=== PATIENT | female | born 1945 | race Caucasian/White ===

== ENCOUNTER 2020-10-10 13:28 | Inpatient (IN) ==
[2020-10-10] MEDS ORDERED: SODIUM CHLORIDE 0.9% 1000ML 1,000 ML IV ONE (14:09)
[2020-10-10] MEDS ORDERED: GI COCKTAIL ED USE PO ONE (14:09)
--- NOTE | 2020-10-10 14:12 | Emergency Department Note ---
Impression & Plan Acute upper gastrointestinal bleeding, Hypertension, Anemia, CKD (chronic kidney disease) ED Provider Note NAME: FELI JAUREGUI AGE: 75 SEX: F : 1945 ARRIVES VIA: Walk-In INFORMANT: Patient ED PROVIDER(S): Jn Lu DO CHIEF COMPLAINT: Abdominal pain in the epigastric region HPI: Patient is a 75-year-old female that presents to the ER for epigastric abdominal pain which has been present for the past 2 months constantly. Is worse after eating. She admits to some nausea but no vomiting. Denies any dysuria urgency or frequency. No chest pain or shortness of breath. She notes she has some diarrhea over the past 24 hours and noted some dark stools. Denies any blood thinners other than aspirin. No other exacerbating or remitting factors. She has followed up with her PCP and had an ultrasound and chest x-ray which were per report unremarkable. ROS: See above HPI for pertinent positives & negatives. A total of 10 systems reviewed and were otherwise negative. PAST MEDICAL HISTORY:See Below PAST SURGICAL HISTORY:See Below FAMILY HISTORY:See Below SOCIAL HISTORY:See Below HOME MEDICATIONS:See Below ALLERGIES:See Below VITALS:See Below PHYSICAL EXAMINATION: GENERAL: Sitting up in bed, alert, well appearing, well nourished, no distress, non-toxic EYE EXAM: normal conjunctiva. OROPHARYNX: no exudate, no erythema, lips, buccal mucosa, and tongue normal and mucous membranes are moist NECK: supple, no nuchal rigidity, no adenopathy, non-tender LUNGS: Clear to auscultation. Normal chest wall mechanics HEART: no murmurs, S1 normal and S2 normal ABDOMEN: abdomen soft, non-tender, normo-active bowel sounds, no masses, no rebound or guarding. RECTAL: Rectally heme positive dark stool UPPER EXTREMITIES: upper extremities are grossly normal. LOWER EXTREMITIES: No pitting edema. NEURO EXAM: Normal sensorium, cranial nerves II-XII grossly intact, normal speech, no gross weakness of arms, no gross weakness of legs. MEDICAL DECISION MAKING: Patient is a 75-year-old female who presents ER for black stools and abdominal pain. IV was established percutaneously labs show hemoglobin 1.4 consistent with previous. INR was unremarkable. BMP with creatinine 2.7 consistent with previous. LFTs bilirubin was unremarkable. Troponin was negative. Lipase unremarkable. UA was contaminated. Will not treat at that time. Covid negative. Rectal heme positive black stool. Discussed with Dr. Howe as this patient has followed with [facility] before and had a scope in 2019 which was unremarkable. She was given a GI cocktail with significant improvement of her pain. He recommended admission and they will evaluate as an inpatient. Triage Nursing notes reviewed. Limited review of prior medical records performed Vital Signs: reviewed and remarkable for HTN Differential diagnosis: Differential diagnoses includes but is not limited to gastritis, peptic ulcer disease, GERD, gallbladder disease, pancreatitis, small bowel obstruction, acute coronary syndrome, pericarditis, ischemic bowel, irritable bowel disease, irritable bowel syndrome, appendicitis, diverticulitis, malignancy, hernia, urinary tract infection, torsion, perforation, trauma, infectious. ER treatment provided: See below Diagnostics interpreted by me: ECG: none Cardiac Monitoring: An order was placed for continuous cardiac monitoring. The monitor shows a rate of 65 with sinus rhythm. Laboratory studies: As stated above and show below. Imaging studies: CT abdomen pelvis is unremarkable Consultation(s): Discussed with hospitalist for further evaluation Procedures: none Critical Care: None Past Med/Surg History Medical History Anemia Blood in stool Cardiac murmur Chronic back pain Chronic kidney disease, stage 4 (severe) Chronic obstructive pulmonary disease inhaler/nebulizer prn GERD (gastroesophageal reflux disease) Gout Hyperlipidemia Hypertension Peripheral arterial disease Tobacco use disorder Surgical History History of bilateral cataract extraction History of carpal tunnel release of both wrists History of cholecystectomy History of colonoscopy with polypectomy History of esophagogastroduodenoscopy (EGD) History of laminectomy History of repair of right rotator cuff History of tooth extraction all teeth removed Family History Mother Family history of diabetes mellitus Brother Family history of diabetes mellitus Sister Family history of diabetes mellitus Other No family history of adverse response to anesthesia Social History Smoking Status: Current every day smoker Tobacco Type: Cigarettes Cigarettes Per Day: 20 a day; Second Hand Exposure: No; Hx Alcohol Use: Yes Alcohol type: wine Hx Substance Use: No Preferred Language: Upper Sorbian Communication Ability: Effective Technical Service Representative Required: No Beliefs That Will Affect Care: None Current Living Situation: Alone Feels Safe at Home: Yes Assistive Devices: Denture - Upper, Glasses and Walker Allergies Allergies Allergy/AdvReac Type Severity Reaction Status Date / Time Bactrim Allergy Severe ELEVATED Verified 08/15/13 14:34 POTASSIUM, BRADYCARDIC "HEART TRIED TO SHUT DOWN" sulfamethoxazole Allergy Severe ELEVATED Verified 10/10/20 15:12 POTASSIUM, BRADYCARDIC "HEART TRIED TO SHUT DOWN" trimethoprim Allergy Severe ELEVATED Verified 10/10/20 15:12 POTASSIUM, BRADYCARDIC "HEART TRIED TO SHUT DOWN" gabapentin Allergy Intermediate HALLUCINATIONS; Verified 10/10/20 15:12 SCREAMING/YELLING codeine Allergy Mild RASH, Verified 10/10/20 15:12 RAPID HEART BEAT hydromorphone [From Dilaudid] AdvReac Mild Hallucinati Verified 10/10/20 15:12 ng Home Meds Home Medications Medication Instructions Recorded Confirmed Calcium 600 + D(3) 1 cap PO QAM 09/16/18 10/10/20 albuterol sulfate 2.5 mg INHALATION Q4 PRN 09/16/18 10/10/20 aspirin 81 mg PO QAM 09/16/18 10/10/20 atorvastatin 40 mg PO QPM 09/16/18 10/10/20 hydrochlorothiazide 25 mg PO QAM 09/16/18 10/10/20 loratadine 10 mg PO QAM PRN 09/16/18 10/10/20 hydralazine 100 mg PO BID 04/19/19 10/10/20 sucralfate 1 g PO BID 06/08/19 10/10/20 amlodipine 10 mg PO DAILY 10/10/20 10/10/20 carvedilol 3.125 mg PO BID 10/10/20 10/10/20 dexlansoprazole [Dexilant] 30 mg PO DAILY 10/10/20 10/10/20 Results & Data (ED) Vital Signs Vital Signs - 24 hr 10/10/20 13:30 10/10/20 15:51 Temperature 36.2 C L Temperature Source Skin Pulse Rate 67 Pulse Rate from SpO2 Sensor 66 Respiratory Rate 18 Respiratory Effort / Characteristics Non-Labored Spontaneous Respiratory Depth Normal Respiratory Pattern Regular Blood Pressure 187/67 H 191/68 H Blood Pressure Mean 107 109 Blood Pressure Position Sitting Pulse Oximetry 98 98 Oxygen Delivery Method Room Air Sepsis Recent Fever Within 48 Hours No Sepsis New/Unexplained Change in Mental Status N/A Sepsis Action Taken by Nursing No Action Required Laboratory Data Result diagrams: 10/10/20 14:22 10/10/20 14:22 Lab Results 10/10/20 10/10/20 10/10/20 Range/Units 14:22 14:22 14:22 WBC 8.31 (4.8-10.8) K/uL RBC 3.68 L (4.2-5.4) M/uL Hgb 11.4 L (12.0-16.0) g/dL Hct 33.6 L (37-47) % MCV 91.3 (80-100) fL MCH 31.0 (25-34) pg MCHC 33.9 (32-36) g/dL RDW Std Deviation 50.1 H (36.4-46.3) fL RDW Coeff of Kris 14.9 H (11.5-14.5) % Plt Count 222 (130-400) K/uL MPV 9.7 (7.4-10.4) fL Immature Gran % (Auto) 0.1 % Neut % (Auto) 71.8 % Lymph % (Auto) 21.2 % Gibson % (Auto) 4.9 % Eos % (Auto) 1.8 % Baso % (Auto) 0.2 % Neut # (Auto) 5.96 (1.4-6.5) K/uL Lymph # (Auto) 1.76 (1.2-3.4) K/uL Gibson # (Auto) 0.41 (0.11-0.59) K/uL Eos # (Auto) 0.15 (0-0.5) K/uL Baso # (Auto) 0.02 (0-0.2) K/uL Immature Gran # (Auto) 0.01 (0.00-0.02) K/uL PT 9.9 (9.0-12.0) Seconds INR 1.0 (0.9-1.1) Sodium 136 (136-145) mmol/L Potassium 4.2 (3.5-5.1) mmol/L Chloride 107 (98-107) mmol/L Carbon Dioxide 24 (21-32) mmol/L Anion Gap 5.0 (3-11) BUN 42 H (7-18) mg/dl Creatinine 2.74 H (0.6-1.2) mg/dl Est Cr Clr Drug Dosing 21.0 ml/min Est GFR ( Amer) 18.9 ml/min Est GFR (Non-Af Amer) 16.3 ml/min BUN/Creatinine Ratio 15.3 (10-20) Glucose 84 (70-99) mg/dl Lactate (0.4-2.0) mmol/L Calcium 8.7 (8.5-10.1) mg/dl Total Bilirubin 0.4 (0.2-1) mg/dl AST 18 (15-37) U/L ALT 15 (12-78) U/L Alkaline Phosphatase 178 H (45-117) U/L Troponin I < 0.015 (0-0.045) ng/ml Total Protein 6.8 (6.4-8.2) gm/dl Albumin 3.4 (3.4-5.0) gm/dl Globulin 3.4 (2.5-4.0) gm/dl Albumin/Globulin Ratio 1.0 (0.9-2) Lipase 156 (73-393) U/L Urine Color Urine Appearance (Clear) Urine pH (4.5-7.5) Ur Specific [place] (1.000-1.030) Urine Protein (Negative) Urine Glucose (UA) (Negative) Urine Ketones (Negative) Urine Blood (Negative) Urine Nitrite (Negative) Urine Bilirubin (Negative) Urine Urobilinogen (Negative) Ur Leukocyte Esterase (Negative) Urine WBC (Auto) (0-5) /hpf Urine RBC (Auto) (0-4) /hpf U Hyaline Cast (Auto) (0-5) /lpf U Epithel Cells (Auto) (0-5) /lpf Urine Bacteria (Auto) (Negative) COVID-19 Eval Order SARS-CoV-2 (PCR) (Negative) Blood Type Antibody Screen 10/10/20 10/10/20 10/10/20 Range/Units 14:30 16:47 18:37 WBC (4.8-10.8) K/uL RBC (4.2-5.4) M/uL Hgb (12.0-16.0) g/dL Hct (37-47) % MCV (80-100) fL MCH (25-34) pg MCHC (32-36) g/dL RDW Std Deviation (36.4-46.3) fL RDW Coeff of Kris (11.5-14.5) % Plt Count (130-400) K/uL MPV (7.4-10.4) fL Immature Gran % (Auto) % Neut % (Auto) % Lymph % (Auto) % Gibson % (Auto) % Eos % (Auto) % Baso % (Auto) % Neut # (Auto) (1.4-6.5) K/uL Lymph # (Auto) (1.2-3.4) K/uL Gibson # (Auto) (0.11-0.59) K/uL Eos # (Auto) (0-0.5) K/uL Baso # (Auto) (0-0.2) K/uL Immature Gran # (Auto) (0.00-0.02) K/uL PT (9.0-12.0) Seconds INR (0.9-1.1) Sodium (136-145) mmol/L Potassium (3.5-5.1) mmol/L Chloride (98-107) mmol/L Carbon Dioxide (21-32) mmol/L Anion Gap (3-11) BUN (7-18) mg/dl Creatinine (0.6-1.2) mg/dl Est Cr Clr Drug Dosing ml/min Est GFR ( Amer) ml/min Est GFR (Non-Af Amer) ml/min BUN/Creatinine Ratio (10-20) Glucose (70-99) mg/dl Lactate (0.4-2.0) mmol/L Calcium (8.5-10.1) mg/dl Total Bilirubin (0.2-1) mg/dl AST (15-37) U/L ALT (12-78) U/L Alkaline Phosphatase (45-117) U/L Troponin I (0-0.045) ng/ml Total Protein (6.4-8.2) gm/dl Albumin (3.4-5.0) gm/dl Globulin (2.5-4.0) gm/dl Albumin/Globulin Ratio (0.9-2) Lipase (73-393) U/L Urine Color Yellow Urine Appearance Clear (Clear) Urine pH 5.0 (4.5-7.5) Ur Specific [place] 1.010 (1.000-1.030) Urine Protein 2+ H (Negative) Urine Glucose (UA) Negative (Negative) Urine Ketones Negative (Negative) Urine Blood Negative (Negative) Urine Nitrite Negative (Negative) Urine Bilirubin Negative (Negative) Urine Urobilinogen Negative (Negative) Ur Leukocyte Esterase Trace H (Negative) Urine WBC (Auto) 5-10 H (0-5) /hpf Urine RBC (Auto) 0-4 (0-4) /hpf U Hyaline Cast (Auto) 0 (0-5) /lpf U Epithel Cells (Auto) 20-30 H (0-5) /lpf Urine Bacteria (Auto) 2+ H (Negative) COVID-19 Eval Order Covid19 at [facility] SARS-CoV-2 (PCR) (Negative) Blood Type O Positive Antibody Screen NEGATIVE 10/10/20 10/10/20 Range/Units 18:37 18:52 WBC (4.8-10.8) K/uL RBC (4.2-5.4) M/uL Hgb (12.0-16.0) g/dL Hct (37-47) % MCV (80-100) fL MCH (25-34) pg MCHC (32-36) g/dL RDW Std Deviation (36.4-46.3) fL RDW Coeff of Kris (11.5-14.5) % Plt Count (130-400) K/uL MPV (7.4-10.4) fL Immature Gran % (Auto) % Neut % (Auto) % Lymph % (Auto) % Gibson % (Auto) % Eos % (Auto) % Baso % (Auto) % Neut # (Auto) (1.4-6.5) K/uL Lymph # (Auto) (1.2-3.4) K/uL Gibson # (Auto) (0.11-0.59) K/uL Eos # (Auto) (0-0.5) K/uL Baso # (Auto) (0-0.2) K/uL Immature Gran # (Auto) (0.00-0.02) K/uL PT (9.0-12.0) Seconds INR (0.9-1.1) Sodium (136-145) mmol/L Potassium (3.5-5.1) mmol/L Chloride (98-107) mmol/L Carbon Dioxide (21-32) mmol/L Anion Gap (3-11) BUN (7-18) mg/dl Creatinine (0.6-1.2) mg/dl Est Cr Clr Drug Dosing ml/min Est GFR ( Amer) ml/min Est GFR (Non-Af Amer) ml/min BUN/Creatinine Ratio (10-20) Glucose (70-99) mg/dl Lactate 0.6 (0.4-2.0) mmol/L Calcium (8.5-10.1) mg/dl Total Bilirubin (0.2-1) mg/dl AST (15-37) U/L ALT (12-78) U/L Alkaline Phosphatase (45-117) U/L Troponin I (0-0.045) ng/ml Total Protein (6.4-8.2) gm/dl Albumin (3.4-5.0) gm/dl Globulin (2.5-4.0) gm/dl Albumin/Globulin Ratio (0.9-2) Lipase (73-393) U/L Urine Color Urine Appearance (Clear) Urine pH (4.5-7.5) Ur Specific [place] (1.000-1.030) Urine Protein (Negative) Urine Glucose (UA) (Negative) Urine Ketones (Negative) Urine Blood (Negative) Urine Nitrite (Negative) Urine Bilirubin (Negative) Urine Urobilinogen (Negative) Ur Leukocyte Esterase (Negative) Urine WBC (Auto) (0-5) /hpf Urine RBC (Auto) (0-4) /hpf U Hyaline Cast (Auto) (0-5) /lpf U Epithel Cells (Auto) (0-5) /lpf Urine Bacteria (Auto) (Negative) COVID-19 Eval Order SARS-CoV-2 (PCR) NEGATIVE (Negative) Blood Type Antibody Screen Administered Medications Acetaminophen (Ofirmev) 1,000 mg in 100 mls @ 400 mls/hr IV Q8H PRN PRN Reason: Pain Stop: 10/13/20 18:06 Last Infusion: 10/10/20 18:59 Dose: 0 mls/hr Documented by: [id number] Admin: 10/10/20 18:33 Dose: 400 mls/hr Documented by: [id number] Nicotine (Nicotine 21 Mg/24 Hr Tdsy) 21 mg TD QAM EVON Stop: 11/09/20 17:44 Last Admin: 10/10/20 18:34 Dose: 21 mg Documented by: [id number] Discontinued Medications Al Hydrox/Mg Hydrox/Simethicone (Gi Cocktail Ed Use) 1 dose PO ONE ONE Stop: 10/10/20 14:10 Last Admin: 10/10/20 14:29 Dose: 1 dose Documented by: [id number] Sodium Chloride (Nss 1000ml) 1,000 mls @ 999 mls/hr IV .Q1H1M ONE Stop: 10/10/20 15:09 Last Infusion: 10/10/20 16:02 Dose: 0 mls/hr Documented by: [id number] Admin: 10/10/20 14:30 Dose: 999 mls/hr Documented by: [id number] Pantoprazole Sodium 40 mg/ (Syringe) 10 mls @ 5 mls/min IV NOW ONE Stop: 10/10/20 16:36 Last Admin: 10/10/20 18:56 Dose: 5 mls/min Documented by: [id number] Ceftriaxone Sodium (Rocephin) 2,000 mg in 70 mls @ 140 mls/hr IV NOW STA Stop: 10/10/20 18:45 Last Infusion: 10/10/20 20:22 Dose: 0 mls/hr Documented by: [id number] Admin: 10/10/20 18:33 Dose: 140 mls/hr Documented by: [id number] Imaging Data Radiologist's Impression: Abdomen/Pelvis CT 10/10/20 15:03 CT SCAN OF THE ABDOMEN AND PELVIS WITHOUT IV CONTRAST CLINICAL HISTORY: Epigastric abdominal pain. COMPARISON STUDY: Abdominal CT dated 05/08/2016. TECHNIQUE: CT scan of the abdomen and pelvis is performed from the lung bases to the proximal femora. Images are reviewed in the axial, sagittal, and coronal planes. IV contrast was not administered for this examination. The examination i s suboptimal without oral and IV contrast. A dose lowering technique was utilized adhering to the principles of ALARA. CT DOSE: 856.75 mGy.cm FINDINGS: Lung bases: The heart is normal in size noting trace pericardial fluid. There are bilateral fat-containing Bochdalek hernias. The lung bases are clear noting bibasilar scarring/atelectasis. A small hiatal hernia is noted. Liver: The unenhanced liver is normal in size, contour, and attenuation. There is no intrahepatic biliary ductal dilatation. Gallbladder: Surgically absent noting clips in the gallbladder fossa. Spleen: Normal in size and attenuation. Pancreas: The unenhanced pancreas is grossly unremarkable. Adrenal glands: Unremarkable. Kidneys: The unenhanced kidneys are atrophic and without hydronephrosis. There are at least 3 punctate nonobstructing right renal calculi. A 4 mm calculus is noted on the left. There are also renal vascular calcifications. A 2 cm exophytic cyst is incidentally noted on the right. Abdominal vasculature: The abdominal aorta is normal in course and caliber noting advanced atherosclerotic calcification. Bowel: There is no bowel obstruction. The appendix is well-visualized and normal. Peritoneum: There is no intraperitoneal free air or abdominal ascites. Lymphadenopathy: None. Pelvic viscera: The bladder, uterus, and adnexa are normal as visualized. Skeletal structures: The skeletal structures are heterogeneously osteopenic. There is moderate lumbosacral spondylosis. Laminectomy change is seen in the lower lumbar spine. Arthritic change is seen in the hips. No lytic or blastic lesions are seen. IMPRESSION: 1. There are no acute infectious or inflammatory findings in the abdomen or pelvis. 2. Bilateral nephrolithiasis. 3. Additional findings as above. ACT 112: Negative or not required by law. Electronically signed by: Christoph Freeman M.D. 10/10/2020 3:38 PM Discharge Plan Visit Data Chief Complaint: Abdominal Pain Stated Complaint: ABD PAIN, DIARRHEA ED Provider: Jn Lu Discharge Problem: Acute upper gastrointestinal bleeding, Hypertension, Anemia, CKD (chronic kidney disease) Forms Stand Alone Forms: My [facility] [employer] Prescriptions Prescriptions: No Action atorvastatin 40 mg Tablet 40 mg PO QPM RF: 0 Calcium 600 + D(3) 600 mg calcium- 200 unit Capsule 1 cap PO QAM RF: 0 aspirin 81 mg Tablet,Delayed Release (Dr/Ec) 81 mg PO QAM RF: 0 hydrochlorothiazide 25 mg Tablet 25 mg PO QAM RF: 0 albuterol sulfate 5 mg/mL Solution For Nebulization 2.5 mg INHALATION Q4 PRN (Reason: Shortness Of Breath) RF: 0 loratadine 10 mg Tablet 10 mg PO QAM PRN (Reason: Allergy Symptoms) RF: 0 hydralazine 100 mg tablet 100 mg PO BID RF: 0 sucralfate 1 gram Tablet 1 g PO BID RF: 0 amlodipine 10 mg tablet 10 mg PO DAILY RF: 0 Dexilant 30 mg capsule,biphase delayed releas 30 mg PO DAILY RF: 0 carvedilol 3.125 mg tablet 3.125 mg PO BID RF: 0 Discharge Problem: Hypertension Qualifiers: Hypertension type: unspecified Qualified Code(s): I10 - Essential (primary) hypertension Anemia Qualifiers: Anemia type: unspecified type Qualified Code(s): D64.9 - Anemia, unspecified CKD (chronic kidney disease) Qualifiers: Chronic kidney disease stage: unspecified stage Qualified Code(s): N18.9 - Chronic kidney disease, unspecified
[2020-10-10 14:42] LABS: Basophils # (auto) 0.02 K/uL (0-0.2); Basophils % (auto) 0.2 %; Eosinophils # (auto) 0.15 K/uL (0-0.5); Eosinophils % (auto) 1.8 %; Hematocrit (blood only) 33.6 % (37-47); Hemoglobin 11.4 g/dL (12.0-16.0); Immature Granulocytes # (auto) 0.01 K/uL (0.00-0.02); Immature Granulocytes % (auto) 0.1 %; Lymphocytes # (auto) 1.76 K/uL (1.2-3.4); Lymphocytes % (auto) 21.2 %; Mean Corpuscular Hgb Conc 33.9 g/dL (32-36); Mean Corpuscular Volume 91.3 fL (80-100); Mean Platelet Volume 9.7 fL (7.4-10.4); Monocytes # (auto) 0.41 K/uL (0.11-0.59); Monocytes % (auto) 4.9 %; Neutrophils # (auto) 5.96 K/uL (1.4-6.5); Neutrophils % (auto) 71.8 %; Platelet Count 222 K/uL (130-400); RDW Coefficient of Variation 14.9 % (11.5-14.5); RDW Standard Deviation 50.1 fL (36.4-46.3); Red Blood Count 3.68 M/uL (4.2-5.4); White Blood Count 8.31 K/uL (4.8-10.8)
[2020-10-10 14:48] LABS: Appearance Urine Clear (Clear); Bacteria Urine Automated 2+ (Negative); Bilirubin Urine Negative (Negative); Blood Urine Negative (Negative); Cast Urine Automated 0 /lpf (0-5); Color Urine Yellow; Epithelial Cell Urine Auto 20-30 /lpf (0-5); Glucose Urine UA Negative (Negative); Ketones Urine Negative (Negative); Leukocyte Esterase Urine Trace (Negative); Nitrite Urine Negative (Negative); Protein Urine 2+ (Negative); RBC Urine Automated 0-4 /hpf (0-4); Urobilinogen Urine Negative (Negative)
[2020-10-10 14:50] LABS: Prothrombin Time 9.9 Seconds (9.0-12.0)
[2020-10-10 15:01] LABS: Alanine Aminotransferase 15 U/L (12-78); Albumin Level 3.4 gm/dl (3.4-5.0); Aspartate Aminotransferase 18 U/L (15-37); BUN Creatinine Ratio 15.3 (10-20); Blood Urea Nitrogen 42 mg/dl (7-18); Calcium 8.7 mg/dl (8.5-10.1); Carbon Dioxide 24 mmol/L (21-32); Chloride 107 mmol/L (98-107); Est GFR (African American) 18.9 ml/min; Est GFR (Non-African American) 16.3 ml/min; Glucose 84 mg/dl (70-99); Lipase 156 U/L (73-393); Potassium 4.2 mmol/L (3.5-5.1); Sodium 136 mmol/L (136-145)
[2020-10-10 15:06] LABS: Alkaline Phosphatase 178 U/L (45-117); Bilirubin,Total 0.4 mg/dl (0.2-1); Globulin 3.4 gm/dl (2.5-4.0); Total Protein 6.8 gm/dl (6.4-8.2); Troponin I < 0.015 ng/ml (0-0.045)
--- NOTE | 2020-10-10 15:40 | CT Scan Report ---
CT SCAN OF THE ABDOMEN AND PELVIS WITHOUT IV CONTRAST CLINICAL HISTORY: Epigastric abdominal pain. COMPARISON STUDY: Abdominal CT dated 05/08/2016. TECHNIQUE: CT scan of the abdomen and pelvis is performed from the lung bases to the proximal femora. Images are reviewed in the axial, sagittal, and coronal planes. IV contrast was not administered for this examination. The examination is suboptimal without oral and IV contrast. A dose lowering techni que was utilized adhering to the principles of ALARA. CT DOSE: 856.75 mGy.cm FINDINGS: Lung bases: The heart is normal in size noting trace pericardial fluid. There are bilateral fat-conta ining Bochdalek hernias. The lung bases are clear noting bibasilar scarring/atelectasis. A small hiat al hernia is noted. Liver: The unenhanced liver is normal in size, contour, and attenuation. There is no intrahepatic bailee iary ductal dilatation. Gallbladder: Surgically absent noting clips in the gallbladder fossa. Spleen: Normal in size and attenuation. Pancreas: The unenhanced pancreas is grossly unremarkable. Adrenal glands: Unremarkable. Kidneys: The unenhanced kidneys are atrophic and without hydronephrosis. There are at least 3 punctat e nonobstructing right renal calculi. A 4 mm calculus is noted on the left. There are also renal vasc ular calcifications. A 2 cm exophytic cyst is incidentally noted on the right. Abdominal vasculature: The abdominal aorta is normal in course and caliber noting advanced atheroscle rotic calcification. Bowel: There is no bowel obstruction. The appendix is well-visualized and normal. Peritoneum: There is no intraperitoneal free air or abdominal ascites. Lymphadenopathy: None. Pelvic viscera: The bladder, uterus, and adnexa are normal as visualized. Skeletal structures: The skeletal structures are heterogeneously osteopenic. There is moderate lumbos acral spondylosis. Laminectomy change is seen in the lower lumbar spine. Arthritic change is seen in the hips. No lytic or blastic lesions are seen. IMPRESSION: 1. There are no acute infectious or inflammatory findings in the abdomen or pelvis. 2. Bilateral nephrolithiasis. 3. Additional findings as above. ACT 112: Negative or not required by law. Electronically signed by: Christoph Freeman M.D. 10/10/2020 3:38 PM
[2020-10-10] MEDS ORDERED: PANTOprazole 40 MG in SYRINGE 0 ML IV ONE (16:35)
--- NOTE | 2020-10-10 17:04 | History & Physical Report ---
Date of Service October 10, 2020 Assessment & Plan (1) Melena: (2) Abdominal pain: This is a 75yo F with a PMH of HTN, CKD IV, CAD, PAD, COPD, tobacco use disorder and other medical problems listed below who presents with worsening abdominal pain and episode of melena at home yesterday. Post prandial abdominal pain in epigastrium, 1 episode of melena yesterday Hgb 11.4 (baseline) No leukocytosis. Lipase wnl. AST/ALT and tbili wnl, ALT 178, troponin wnl Smokes 1 ppd, takes daily baby aspirin for history of CAD/PAD but denies other NSAID use CT abd/pelvis wo contrast without acute infectious or inflammatory findings in the abdomen or pelvis ED physician discussed with Dr. Howe of [facility] GI-recommended admission, will see tomorrow Continue PPI bolus and drip Repeat H&H at 2100 Gentle IV fluids Keep NPO for now (3) UTI (urinary tract infection): Abnormal UA, complaints of lower abdominal/suprapubic pain Empiric Rocephin Follow urine culture (4) Hypertension: Continue amlodipine, hydralazine. Hold hctz for now (5) Peripheral arterial disease: Continue aspirin, statin Consider holding aspirin if H&H significantly drops but currently at baseline (6) Hyperlipidemia: Continue statin (7) Chronic obstructive pulmonary disease: Stable, continue albuterol inhaler PRN (8) Chronic kidney disease, stage 4 (severe): Cr at baseline ~ 2.7 Avoid nephrotoxic agents when able Monitor with BMP (9) Tobacco use disorder: Currently smoking 1 ppd Not interested in cessation Nicotine patch ordered DVT Ppx: SCDs Code status: FULL PCP: MONICA Hunter in [place] Dispo: Admitted to [facility].Plan to return home once medically stable. Patient seen in collaboration with Dr. Luz. Please see addendum. History of Present Illness Chief Complaint: abdominal pain Primary Care Provider: Gabbie Hunter PA-C This is a 75yo F with a PMH of HTN, CKD IV, CAD, PAD, COPD, tobacco use disorder and other medical problems listed below who presents with worsening abdominal pain and episode of melena at home yesterday. Patient endorses constant burning pain in epigastric area wrapping around R side under ribs for the past month. Started to have sharp pain in lower abdomen after eating over the past few weeks. Yesterday had large black bowel movement followed by episode of diarrhea. Lower abdominal pain worsened since yesterday and came to ED for further evaluation. Denies any nausea or vomiting. Takes baby aspirin daily for history of CAD and PAD. Does not use NSAIDs with history of CKD. Smokes 1 ppd. History of IV iron infusions but not for the past 3 months, per patient. Denies any fever, chills, lightheadedness, chest pain, SOB, dysuria, diarrhea or constipation. Allergies Allergy/AdvReac Type Severity Reaction Status Date / Time Bactrim Allergy Severe ELEVATED Verified 08/15/13 14:34 POTASSIUM, BRADYCARDIC "HEART TRIED TO SHUT DOWN" sulfamethoxazole Allergy Severe ELEVATED Verified 10/10/20 15:12 POTASSIUM, BRADYCARDIC "HEART TRIED TO SHUT DOWN" trimethoprim Allergy Severe ELEVATED Verified 10/10/20 15:12 POTASSIUM, BRADYCARDIC "HEART TRIED TO SHUT DOWN" gabapentin Allergy Intermediate HALLUCINATIONS; Verified 10/10/20 15:12 SCREAMING/YELLING codeine Allergy Mild RASH, Verified 10/10/20 15:12 RAPID HEART BEAT hydromorphone [From Dilaudid] AdvReac Mild Hallucinati Verified 10/10/20 15:12 ng Home Medications Medication Instructions Recorded Confirmed Type Calcium 600 + D(3) 1 cap PO QAM 09/16/18 10/10/20 History albuterol sulfate 2.5 mg INHALATION Q4 PRN 09/16/18 10/10/20 History aspirin 81 mg PO QAM 09/16/18 10/10/20 History atorvastatin 40 mg PO QPM 09/16/18 10/10/20 History hydrochlorothiazide 25 mg PO QAM 09/16/18 10/10/20 History loratadine 10 mg PO QAM PRN 09/16/18 10/10/20 History hydralazine 100 mg PO BID 04/19/19 10/10/20 History sucralfate 1 g PO BID 06/08/19 10/10/20 History amlodipine 10 mg PO DAILY 10/10/20 10/10/20 History carvedilol 3.125 mg PO BID 10/10/20 10/10/20 History dexlansoprazole [Dexilant] 30 mg PO DAILY 10/10/20 10/10/20 History Past Med/Surg History Medical History Anemia Blood in stool Cardiac murmur Chronic back pain Chronic kidney disease, stage 4 (severe) Chronic obstructive pulmonary disease inhaler/nebulizer prn GERD (gastroesophageal reflux disease) Gout Hyperlipidemia Hypertension Peripheral arterial disease Tobacco use disorder Surgical History History of bilateral cataract extraction History of carpal tunnel release of both wrists History of cholecystectomy History of colonoscopy with polypectomy History of esophagogastroduodenoscopy (EGD) History of laminectomy History of repair of right rotator cuff History of tooth extraction all teeth removed Family History Mother Family history of diabetes mellitus Brother Family history of diabetes mellitus Sister Family history of diabetes mellitus Other No family history of adverse response to anesthesia Social History Smoking Status: Current every day smoker Tobacco Type: Cigarettes Cigarettes Per Day: 20 a day; Second Hand Exposure: No; Hx Alcohol Use: Yes Alcohol type: wine Hx Substance Use: No Preferred Language: Setswana Communication Ability: Effective Packaging Mechanic Required: No Beliefs That Will Affect Care: None Current Living Situation: Alone Feels Safe at Home: Yes Assistive Devices: Denture - Upper, Glasses and Walker Review of Systems Review of Systems: At least ten systems reviewed and negative except as noted in the HPI. Physical Exam Physical Exam: General Appearance: WD/WN, vitals as above, NAD, sitting up in bed, pleasant, conversing easily Head: normocephalic, atraumatic Eyes: normal inspection, PERRL, conjunctivae normal, anicteric sclerae ENT: external ear and nose normal, oropharynx normal Neck: normal visual inspection, trachea midline, no thyromegaly Respiratory: normal respiratory effort, lungs clear to auscultation, no wheeze, rales, rhonchi. No accessory muscle use Cardiovascular: regular rate, rhythm, systolic murmur, normal peripheral pulses, no BLE edema. Vessels: no JVD Chest: normal inspection of chest Abdomen/GI: normal bowel sounds, soft, TTP in epigastrium and RUQ, also with bilateral suprapubic pain, no hepatosplenomegaly Extremities/Musculoskeletal: no cyanosis or clubbing, extremities motor strength 5/5 Neurologic: PERRL, EOMI, accommodation nl, no face palsy, no dysarthria, CN's II-XI intact bilaterally and moves all extremities Psychiatric: A+Ox3, euthymic affect Skin: no rashes, normal color, warm/dry Results & Data Results & Data ([facility]) Vital Signs (Past 12 Hours) Vital Signs Temp Pulse Resp BP Pulse Ox 10/10/20 15:51 191/68 H 98 10/10/20 13:30 36.2 C L 67 18 187/67 H 98 Laboratory Results Short CBC 10/10/20 10/10/20 Range/Units 14:22 14:22 WBC 8.31 (4.8-10.8) K/uL Hgb 11.4 L (12.0-16.0) g/dL Hct 33.6 L (37-47) % Plt Count 222 (130-400) K/uL Creatinine 2.74 H (0.6-1.2) mg/dl BMP 10/10/20 14:22 Sodium 136 Potassium 4.2 Chloride 107 Carbon Dioxide 24 BUN 42 H Creatinine 2.74 H Glucose 84 Calcium 8.7 Cardiac Enzymes 10/10/20 Range/Units 14:22 Troponin I < 0.015 (0-0.045) ng/ml Liver Function 10/10/20 Range/Units 14:22 Total Bilirubin 0.4 (0.2-1) mg/dl AST 18 (15-37) U/L ALT 15 (12-78) U/L Alkaline Phosphatase 178 H (45-117) U/L Albumin 3.4 (3.4-5.0) gm/dl Urine 10/10/20 Range/Units 14:30 Urine Color Yellow Urine Appearance Clear (Clear) Urine pH 5.0 (4.5-7.5) Ur Specific [place] 1.010 (1.000-1.030) Urine Protein 2+ H (Negative) Urine Glucose (UA) Negative (Negative) Diagnostic Findings Abdomen/Pelvis CT 10/10/20 15:03 CT SCAN OF THE ABDOMEN AND PELVIS WITHOUT IV CONTRAST CLINICAL HISTORY: Epigastric abdominal pain. COMPARISON STUDY: Abdominal CT dated 05/08/2016. TECHNIQUE: CT scan of the abdomen and pelvis is performed from the lung bases to the proximal femora. Images are reviewed in the axial, sagittal, and coronal planes. IV contrast was not administered for this examination. The examination is suboptimal without oral and IV contrast. A dose lowering technique was utilized adhering to the principles of ALARA. CT DOSE: 856.75 mGy.cm FINDINGS: Lung bases: The heart is normal in size noting trace pericardial fluid. There are bilateral fat-containing Bochdalek hernias. The lung bases are clear noting bibasilar scarring/atelectasis. A small hiatal hernia is noted. Liver: The unenhanced liver is normal in size, contour, and attenuation. There is no intrahepatic biliary ductal dilatation. Gallbladder: Surgically absent noting clips in the gallbladder fossa. Spleen: Normal in size and attenuation. Pancreas: The unenhanced pancreas is grossly unremarkable. Adrenal glands: Unremarkable. Kidneys: The unenhanced kidneys are atrophic and without hydronephrosis. There are at least 3 punctate nonobstructing right renal calculi. A 4 mm calculus is noted on the left. There are also renal vascular calcifications. A 2 cm exophytic cyst is incidentally noted on the right. Abdominal vasculature: The abdominal aorta is normal in course and caliber noting advanced atherosclerotic calcification. Bowel: There is no bowel obstruction. The appendix is well-visualized and normal. Peritoneum: There is no intraperitoneal free air or abdominal ascites. Lymphadenopathy: None. Pelvic viscera: The bladder, uterus, and adnexa are normal as visualized. Skeletal structures: The skeletal structures are heterogeneously osteopenic. There is moderate lumbosacral spondylosis. Laminectomy change is seen in the low er lumbar spine. Arthritic change is seen in the hips. No lytic or blastic lesions are seen. IMPRESSION: 1. There are no acute infectious or inflammatory findings in the abdomen or pelvis. 2. Bilateral nephrolithiasis. 3. Additional findings as above. ACT 112: Negative or not required by law. Electronically signed by: Christoph Freeman M.D. 10/10/2020 3:38 PM Code Status & VTE Plan VTE Prophylaxis Plan VTE Prophylaxis will be ordered: Yes Supervising Physician Co-Signing Physician Notes I saw this patient with the physician medical assistant secretary, I participated in the history, physical, review of systems, and physical exam. I reviewed the medications with the patient and the physician medical assistant secretary and helped reconcile the medications. I helped take a detailed family and social history as well. I formulated the assessment and plan personally with the physician medical assistant secretary and went over it with the patient. ROS-No Headache, No Visual Changes, No Nausea, No Vomiting, No Fever, No Chills, No Neck Pain or Stiffness, No Chest Pain, No Palpitations, No SOB, No RAINEY, No Cough, No Sputum, No Wheezing, +Abdominal Pain, No Diarrhea, No Hematemesis, No Hemoptysis, No Unexpected Weight Loss, No Flank pain, No Melena, No Hematochezia, No Frequency, No Urgency, No Burning, No Hematuria, No Rashes, No Diaphoresis. Appetite is Normal Physical Exam Gen-AAO x 3, NAD, Afebrile, Obese Head-NCAT, EOMI, PERRLA, Anicteric Sclera, No Posterior Pharyngeal Erythema Neck-Supple, No JVD, No Thyromegaly, No Masses, No LAD, No Bruits Lungs-Clear to Auscultation Bilaterally, No Rales, No Rhonchi, No Wheezing, No Crepitus Chest-No S4, +S1, +S2, No S3, No Murmurs, No Rubs, No Gallops, No Ectopy Abdomen-Soft, Bowel Sounds Present, RUQ and Epigastric Tenderness, Non Distended, No Hepatomegaly, No Splenomegaly, No Palpable Masses, No Rebound, No Rigidity, No Guarding Musculoskeletal-Full Range of Motion Bilaterally, No CVAT Extremities-No Cyanosis, No Clubbing, No Edema Nuero-Cranial Nerves II-XII grossly intact, Motor WNL, DTRs WNL, Strength WNL, Non Focal Psych-Normal Mood
[2020-10-10] MEDS ORDERED: ACETAMINOPHEN 1,000 MG/100 ML VIAL IV PRN (18:07)
[2020-10-10] MEDS ORDERED: cefTRIAXone SODIUM 2,000 MG/70 ML BAG IV STA (18:16)
[2020-10-10] MEDS: NICOTINE 21 MG/24 HR TDSY TD SCH (18:34)
--- NOTE | 2020-10-10 18:44 | Electrocardiogram Report ---
Test Reason : Blood Pressure : / mmHG Vent. Rate : 066 BPM Atrial Rate : 066 BPM P-R Int : 224 ms QRS Dur : 092 ms QT Int : 448 ms P-R-T Axes : 050 016 060 degrees QTc Int : 469 ms Sinus rhythm with 1st degree A-V block Otherwise normal ECG When compared with ECG of 06-APR-2010 20:08, [place] interval has increased Vent. rate has decreased BY 34 BPM Confirmed by Salvatore Coronel ([id number]) on 10/10/2020 6:44:07 PM Referred By: REFERRED SELF Confirmed By:Rohit Coronel
[2020-10-10] MEDS ORDERED: ALBUTEROL HFA 8 GM INHALER INH PRN (22:09)
[2020-10-10] MEDS ORDERED: ONDANSETRON INJ 2 MG/ML 2 ML VIAL IV PRN (22:09)
[2020-10-10] MEDS ORDERED: POLYETHYLENE (MIRALAX) 17 GM PACK PO PRN (22:09)
[2020-10-10] MEDS ORDERED: SODIUM CHLORIDE 0.9% 1000ML 1,000 ML IV SCH (22:09)
[2020-10-10] MEDS ORDERED: ALBUTEROL 0.083% NEBU SOLN 3 ML VIAL INH PRN (22:42)
[2020-10-10 22:56] LABS: Hematocrit (blood only) 32.1 % (37-47); Hemoglobin 10.8 g/dL (12.0-16.0)
[2020-10-10] MEDS: carvediloL 3.125 MG TAB PO SCH (23:19)
[2020-10-10] MEDS: SUCRALFATE 1 GM TAB PO SCH (23:19)
[2020-10-10] MEDS: ATORVASTATIN 40 MG TAB PO SCH (23:19)
[2020-10-10] MEDS: hydrALAZINE TAB 50 MG TAB PO SCH (23:20)
[2020-10-11 07:38] LABS: Hematocrit (blood only) 29.2 % (37-47); Hemoglobin 9.9 g/dL (12.0-16.0); Mean Corpuscular Hemoglobin 30.3 pg (25-34); Mean Corpuscular Hgb Conc 33.9 g/dL (32-36); Mean Corpuscular Volume 89.3 fL (80-100); Mean Platelet Volume 9.3 fL (7.4-10.4); Platelet Count 189 K/uL (130-400); RDW Standard Deviation 49.3 fL (36.4-46.3); Red Blood Count 3.27 M/uL (4.2-5.4); White Blood Count 7.05 K/uL (4.8-10.8)
[2020-10-11 08:17] LABS: Albumin Level 2.9 gm/dl (3.4-5.0); Bilirubin,Total 0.4 mg/dl (0.2-1); Calcium 8.9 mg/dl (8.5-10.1); Creatinine Clr Calc Pharmacy 23.4 ml/min; Est GFR (African American) 21.7 ml/min; Est GFR (Non-African American) 18.7 ml/min; Globulin 2.8 gm/dl (2.5-4.0); Potassium 4.2 mmol/L (3.5-5.1); Total Protein 5.7 gm/dl (6.4-8.2)
--- NOTE | 2020-10-11 08:59 | Gastrointestinal Consultation ---
Date of Consultation October 11, 2020 Assessment & Plan (1) Melena: The patient presents today with complaints of epigastric/right upper quadrant abdominal pain that began approximately 2 months ago and worsened in the last 1 week. She noted black tarry stools began about 2 days ago. She is on 81 mg aspirin at home. She is on no PPI at home. 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 Plan is EGD today. Maintain n.p.o. Continue IV PPI. Please refer to supervising physician addendum for further recommendations. History of Present Illness Attending Physician: Savannah Gambino, History of Present Illness The patient is a pleasant 75-year-old female with past medical history to include anemia, cardiac murmur, chronic back pain, stage IV kidney disease, COPD, GERD, gout, hyperlipidemia, hypertension, peripheral arterial disease, tobacco use disorder who presented to the emergency department 10/10/2020 with complaints of epigastric pain which is worse after eating which has been ongoing for 2 months, nausea, loose tarry dark stools that began 2 days prior to arrival in emergency department. Patient was admitted for further management due to concerns for upper GI bleeding and the GI service was consulted. Records reviewed: 06/16/2019: Small bowel enteroscopy performed by Dr. 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 04/26/2019: EGD performed by Dr. Méndez due to iron deficiency anemia and heme positive stool demonstrated a regular Z-line found 37 cm from incisors; examined esophagus was normal; entire stomach was normal; ampulla and examined duodenum were normal. 09/22/2018: Colonoscopy notes reviewed performed by Dr. Méndez due to melena and iron deficiency anemia demonstrated a 5 mm polyp in the sigmoid colon, 7 mm polyp in the ascending colon, 8 mm polyp in the sigmoid colon all of which were removed. Pathology demonstrated hyperplastic polyps On exam/interview today, the patient reports that she has had epigastric pain worse after eating for the last 2 months. She states the symptoms have been w orse over the last week. She states 2 days ago she noted black tarry stools. She did present to her primary care physician due to symptoms. She reports that a chest x-ray and right upper quadrant ultrasound were obtained at [facility]. She reports nausea without vomiting. She states that about 30 to 60 minutes after eating she developed sharp pain in the epigastric/right upper quadrant region and then will have loose to liquid stools. She reports that she has had decreased appetite due to symptoms. She has had some unintentional weight loss. She is on 81 mg aspirin daily. She also is on iron supplementation. She has had a history of iron infusions in the past. She is not on PPI at home. Prior abdominal surgical history includes cholecystectomy. The patient is a current smoker. She is been smoking 1 pack of cigarettes per day for at least the last 50 years. Denies any alcohol use. Denies use of recreational drugs including marijuana. She is . She has 4 adult children and multiple grandchildren and great-grandchildren. She retired at the age of 62. Allergies Allergy/AdvReac Type Severity Reaction Status Date / Time Bactrim Allergy Severe ELEVATED Verified 08/15/13 14:34 POTASSIUM, BRADYCARDIC "HEART TRIED TO SHUT DOWN" sulfamethoxazole Allergy Severe ELEVATED Verified 10/10/20 15:12 POTASSIUM, BRADYCARDIC "HEART TRIED TO SHUT DOWN" trimethoprim Allergy Severe ELEVATED Verified 10/10/20 15:12 POTASSIUM, BRADYCARDIC "HEART TRIED TO SHUT DOWN" gabapentin Allergy Intermediate HALLUCINATIONS; Verified 10/10/20 15:12 SCREAMING/YELLING codeine Allergy Mild RASH, Verified 10/10/20 15:12 RAPID HEART BEAT hydromorphone [From Dilaudid] AdvReac Mild Hallucinati Verified 10/10/20 15:12 ng Home Medications Medication Instructions Recorded Confirmed Type Calcium 600 + D(3) 1 cap PO QAM 09/16/18 10/10/20 History albuterol sulfate 2.5 mg INHALATION Q4 PRN 09/16/18 10/10/20 History aspirin 81 mg PO QAM 09/16/18 10/10/20 History atorvastatin 40 mg PO QPM 09/16/18 10/10/20 History hydrochlorothiazide 25 mg PO QAM 09/16/18 10/10/20 History loratadine 10 mg PO QAM PRN 09/16/18 10/10/20 History hydralazine 100 mg PO BID 04/19/19 10/10/20 History sucralfate 1 g PO BID 06/08/19 10/10/20 History amlodipine 10 mg PO DAILY 10/10/20 10/10/20 History carvedilol 3.125 mg PO BID 10/10/20 10/10/20 History dexlansoprazole [Dexilant] 30 mg PO DAILY 10/10/20 10/10/20 History Patient History Medical History Anemia Blood in stool Cardiac murmur Chronic back pain Chronic kidney disease, stage 4 (severe) Chronic obstructive pulmonary disease inhaler/nebulizer prn GERD (gastroesophageal reflux disease) Gout Hyperlipidemia Hypertension Peripheral arterial disease Tobacco use disorder Surgical History History of bilateral cataract extraction History of carpal tunnel release of both wrists History of cholecystectomy History of colonoscopy with polypectomy History of esophagogastroduodenoscopy (EGD) History of laminectomy History of repair of right rotator cuff History of tooth extraction all teeth removed Family History Mother Family history of diabetes mellitus Brother Family history of diabetes mellitus Sister Family history of diabetes mellitus Other No family history of adverse response to anesthesia Social History Smoking Status: Current every day smoker Tobacco Type: Cigarettes Cigarettes Per Day: 20; Second Hand Exposure: No; Do You Dip or Chew Tobacco: No; Hx Alcohol Use: No Hx Substance Use: No Preferred Language: Kazakh Communication Ability: Effective Compatibility Test Engineer Required: No Beliefs That Will Affect Care: None Current Living Situation: Alone Other Information That Helps Us Care for You: No Feels Safe at Home: Yes Safety Concerns: Feels Safe At This Time Assistive Devices: None Assistive Devices Comment: Pt does NOT have dentures with her Review of Systems Review of Systems: All systems reviewed & are unremarkable except as noted in HPI & below Physical Exam Constitutional: + obese; no acute distress Eyes: wears corrective lenses Neck: normal visual inspection Respiratory: normal respiratory effort; no respiratory distress and no labored breathing Cardiovascular: Rate/Rhythm: regular rate and regular rhythm Gastrointestinal (Abdomen): Inspection/Auscultation: abdomen normal to inspection and normal bowel sounds; abdomen not distended Percussion/Palpation: + abdomen tender (epigastric and RUQ) and abdomen soft; no guarding and abdomen not rigid Psychiatric: Orientation: alert and oriented x 3 Results & Data ([facility]) Vital Signs (Past 12 Hours) Vital Signs Temp Pulse Pulse Pulse Resp BP BP 10/11/20 07:48 36.6 C 56 L 17 174/66 H 10/11/20 07:21 58 L 10/11/20 04:00 36.7 C 79 18 149/74 H 10/10/20 23:45 60 10/10/20 23:23 79 167/78 H 10/10/20 22:18 61 10/10/20 22:14 66 10/10/20 22:09 36.8 C 71 18 211/71 H Pulse Ox 10/11/20 07:48 97 10/11/20 07:21 10/11/20 04:00 93 10/10/20 23:45 10/10/20 23:23 10/10/20 22:18 10/10/20 22:14 10/10/20 22:09 97 Laboratory Results - last 24 hr 10/10/20 10/10/20 10/10/20 14:22 14:22 14:22 WBC 8.31 RBC 3.68 L Hgb 11.4 L Hct 33.6 L MCV 91.3 MCH 31.0 MCHC 33.9 RDW Std Deviation 50.1 H RDW Coeff of Kris 14.9 H Plt Count 222 MPV 9.7 Immature Gran % (Auto) 0.1 Neut % (Auto) 71.8 Lymph % (Auto) 21.2 [place] % (Auto) 4.9 Eos % (Auto) 1.8 Baso % (Auto) 0.2 Neut # (Auto) 5.96 Lymph # (Auto) 1.76 [place] # (Auto) 0.41 Eos # (Auto) 0.15 Baso # (Auto) 0.02 Immature Gran # (Auto) 0.01 PT 9.9 INR 1.0 Sodium 136 Potassium 4.2 Chloride 107 Carbon Dioxide 24 Anion Gap 5.0 BUN 42 H Creatinine 2.74 H Est Cr Clr Drug Dosing 21.0 Est GFR ( Amer) 18.9 Est GFR (Non-Af Amer) 16.3 BUN/Creatinine Ratio 15.3 Glucose 84 Lactate Calcium 8.7 Total Bilirubin 0.4 AST 18 ALT 15 Alkaline Phosphatase 178 H Troponin I < 0.015 Total Protein 6.8 Albumin 3.4 Globulin 3.4 Albumin/Globulin Ratio 1.0 Lipase 156 Urine Color Urine Appearance Urine pH Ur Specific [place] Urine Protein Urine Glucose (UA) Urine Ketones Urine Blood Urine Nitrite Urine Bilirubin Urine Urobilinogen Ur Leukocyte Esterase Urine WBC (Auto) Urine RBC (Auto) U Hyaline Cast (Auto) U Epithel Cells (Auto) Urine Bacteria (Auto) COVID-19 Eval Order SARS-CoV-2 (PCR) Blood Type Antibody Screen 10/10/20 10/10/20 10/10/20 14:30 16:47 18:37 WBC RBC Hgb Hct MCV MCH MCHC RDW Std Deviation RDW Coeff of Kris Plt Count MPV Immature Gran % (Auto) Neut % (Auto) Lymph % (Auto) [place] % (Auto) Eos % (Auto) Baso % (Auto) Neut # (Auto) Lymph # (Auto) [place] # (Auto) Eos # (Auto) Baso # (Auto) Immature Gran # (Auto) PT INR Sodium Potassium Chloride Carbon Dioxide Anion Gap BUN Creatinine Est Cr Clr Drug Dosing Est GFR ( Amer) Est GFR (Non-Af Amer) BUN/Creatinine Ratio Glucose Lactate Calcium Total Bilirubin AST ALT Alkaline Phosphatase Troponin I Total Protein Albumin Globulin Albumin/Globulin Ratio Lipase Urine Color Yellow Urine Appearance Clear Urine pH 5.0 Ur Specific [place] 1.010 Urine Protein 2+ H Urine Glucose (UA) Negative Urine Ketones Negative Urine Blood Negative Urine Nitrite Negative Urine Bilirubin Negative Urine Urobilinogen Negative Ur Leukocyte Esterase Trace H Urine WBC (Auto) 5-10 H Urine RBC (Auto) 0-4 U Hyaline Cast (Auto) 0 U Epithel Cells (Auto) 20-30 H Urine Bacteria (Auto) 2+ H COVID-19 Eval Order Covid19 at [facility] SARS-CoV-2 (PCR) Blood Type O Positive Antibody Screen NEGATIVE 10/10/20 10/10/20 10/10/20 18:37 18:52 22:34 WBC RBC Hgb 10.8 L Hct 32.1 L MCV MCH MCHC RDW Std Deviation RDW Coeff of Kris Plt Count MPV Immature Gran % (Auto) Neut % (Auto) Lymph % (Auto) [place] % (Auto) Eos % (Auto) Baso % (Auto) Neut # (Auto) Lymph # (Auto) [place] # (Auto) Eos # (Auto) Baso # (Auto) Immature Gran # (Auto) PT INR Sodium Potassium Chloride Carbon Dioxide Anion Gap BUN Creatinine Est Cr Clr Drug Dosing Est GFR ( Amer) Est GFR (Non-Af Amer) BUN/Creatinine Ratio Glucose Lactate 0.6 Calcium Total Bilirubin AST ALT Alkaline Phosphatase Troponin I Total Protein Albumin Globulin Albumin/Globulin Ratio Lipase Urine Color Urine Appearance Urine pH Ur Specific [place] Urine Protein Urine Glucose (UA) Urine Ketones Urine Blood Urine Nitrite Urine Bilirubin Urine Urobilinogen Ur Leukocyte Esterase Urine WBC (Auto) Urine RBC (Auto) U Hyaline Cast (Auto) U Epithel Cells (Auto) Urine Bacteria (Auto) COVID-19 Eval Order SARS-CoV-2 (PCR) NEGATIVE Blood Type Antibody Screen 10/11/20 10/11/20 07:21 07:21 WBC 7.05 RBC 3.27 L Hgb 9.9 L Hct 29.2 L MCV 89.3 MCH 30.3 MCHC 33.9 RDW Std Deviation 49.3 H RDW Coeff of Kris 15.0 H Plt Count 189 MPV 9.3 Immature Gran % (Auto) Neut % (Auto) Lymph % (Auto) [place] % (Auto) Eos % (Auto) Baso % (Auto) Neut # (Auto) Lymph # (Auto) [place] # (Auto) Eos # (Auto) Baso # (Auto) Immature Gran # (Auto) PT INR Sodium 140 Potassium 4.2 Chloride 111 H Carbon Dioxide 23 Anion Gap 6.0 BUN 42 H Creatinine 2.44 H D Est Cr Clr Drug Dosing 23.4 Est GFR ( Amer) 21.7 Est GFR (Non-Af Amer) 18.7 BUN/Creatinine Ratio 17.0 Glucose 79 Lactate Calcium 8.9 Total Bilirubin 0.4 AST 13 L ALT 11 L Alkaline Phosphatase 130 H Troponin I Total Protein 5.7 L Albumin 2.9 L Globulin 2.8 Albumin/Globulin Ratio 1.0 Lipase Urine Color Urine Appearance Urine pH Ur Specific [place] Urine Protein Urine Glucose (UA) Urine Ketones Urine Blood Urine Nitrite Urine Bilirubin Urine Urobilinogen Ur Leukocyte Esterase Urine WBC (Auto) Urine RBC (Auto) U Hyaline Cast (Auto) U Epithel Cells (Auto) Urine Bacteria (Auto) COVID-19 Eval Order SARS-CoV-2 (PCR) Blood Type Antibody Screen 10/10/2020: CT of the abdomen and pelvis without IV contrast obtained due to history of epigastric abdominal pain demonstrated 1. There are no acute infectious or inflammatory findings in the abdomen or pelvis. 2. Bilateral nephrolithiasis. 3. Additional findings as above.
[2020-10-11] MEDS: CALCIUM 600MG + VIT D 400 IU TAB PO SCH (09:11)
[2020-10-11] MEDS: LORATADINE 10 MG TAB PO PRN (09:11)
[2020-10-11] MEDS: hydrALAZINE TAB 50 MG TAB PO SCH ×2 (09:12→20:06)
[2020-10-11] MEDS: amLODIPine BESYLATE 5 MG TAB PO SCH (09:15)
[2020-10-11] MEDS: SUCRALFATE 1 GM TAB PO SCH (09:15)
[2020-10-11] MEDS: carvediloL 3.125 MG TAB PO SCH ×2 (09:15→20:07)
[2020-10-11] MEDS: NICOTINE 21 MG/24 HR TDSY TD SCH ×2 (09:23→18:17)
[2020-10-11] MEDS: ASPIRIN 81 MG ECTAB PO SCH (09:36)
[2020-10-11] MEDS ORDERED: Nursing to Pharmacy Communication SCH (10:15)
--- NOTE | 2020-10-11 14:32 | Anesthesiology Consultation ---
Date of Service October 11, 2020 History Surgery Operation Date: 10/11/20 17:00 Proposed Procedures p Esophagogastroduodenoscopy Dr Méndez - Yaw Méndez Height/Weight Height: 5 ft 6 in Weight: 96.8 kg Allergies Allergy/AdvReac Type Severity Reaction Status Date / Time Bactrim Allergy Severe ELEVATED Verified 08/15/13 14:34 POTASSIUM, BRADYCARDIC "HEART TRIED TO SHUT DOWN" sulfamethoxazole Allergy Severe ELEVATED Verified 10/10/20 15:12 POTASSIUM, BRADYCARDIC "HEART TRIED TO SHUT DOWN" trimethoprim Allergy Severe ELEVATED Verified 10/10/20 15:12 POTASSIUM, BRADYCARDIC "HEART TRIED TO SHUT DOWN" gabapentin Allergy Intermediate HALLUCINATIONS; Verified 10/10/20 15:12 SCREAMING/YELLING codeine Allergy Mild RASH, Verified 10/10/20 15:12 RAPID HEART BEAT hydromorphone [From Dilaudid] AdvReac Mild Hallucinati Verified 10/10/20 15:12 ng Medications Home Medications Medication Instructions Recorded Confirmed Last Taken Calcium 600 + D(3) 1 cap PO QAM 09/16/18 10/10/20 06/15/19 albuterol sulfate 2.5 mg INHALATION Q4 PRN 09/16/18 10/10/20 11/22/18 aspirin 81 mg PO QAM 09/16/18 10/10/20 05/26/19 atorvastatin 40 mg PO QPM 09/16/18 10/10/20 06/15/19 hydrochlorothiazide 25 mg PO QAM 09/16/18 10/10/20 06/15/19 loratadine 10 mg PO QAM PRN 09/16/18 10/10/20 05/26/19 hydralazine 100 mg PO BID 04/19/19 10/10/20 06/16/19 sucralfate 1 g PO BID 06/08/19 10/10/20 06/15/19 amlodipine 10 mg PO DAILY 10/10/20 10/10/20 Unknown carvedilol 3.125 mg PO BID 10/10/20 10/10/20 Unknown dexlansoprazole [Dexilant] 30 mg PO DAILY 10/10/20 10/10/20 Unknown Active Medications Generic Name Dose Route Start Last Admin Trade Name Freq PRN Reason Stop Dose Admin Amlodipine Besylate 10 mg 10/11/20 09:00 10/11/20 09:15 Amlodipine Besylate 5 Mg Tab PO 11/10/20 08:59 10 mg DAILY EVON Administration Aspirin 81 mg 10/11/20 09:00 10/11/20 09:36 Aspirin 81 Mg Ectab PO 11/10/20 08:59 Not Given QAM EVON Atorvastatin Calcium 40 mg 10/10/20 22:09 10/10/20 23:19 Atorvastatin 40 Mg Tab PO 11/09/20 22:08 40 mg QPM EVON Administration Carvedilol 3.125 mg 10/10/20 22:09 10/11/20 09:15 Carvedilol 3.125 Mg Tab PO 11/09/20 22:08 3.125 mg BID EVON Administration Hydralazine HCl 100 mg 10/10/20 22:09 10/11/20 09:12 Hydralazine Tab 50 Mg Tab PO 11/09/20 22:08 100 mg BID EVON Administration Acetaminophen 1,000 mg in 100 mls @ 400 mls/hr 10/10/20 18:07 10/10/20 18:59 Ofirmev IV 10/13/20 18:06 Infused Q8H PRN Infusion Pain Loratadine 10 mg 10/10/20 22:09 10/11/20 09:11 Loratadine 10 Mg Tab PO 11/09/20 22:08 10 mg QAM PRN Administration Allergy Symptoms Multivitamins/Minerals 1 tab 10/11/20 09:00 10/11/20 09:11 Calcium 600mg + Vit D 400 Iu Tab PO 11/10/20 08:59 1 tab QAM EVON Administration Nicotine 21 mg 10/10/20 17:45 10/11/20 09:23 Nicotine 21 Mg/24 Hr Tdsy TD 11/09/20 17:44 Not Given QAM EVON Sucralfate 1 gm 10/10/20 22:09 10/11/20 09:15 Sucralfate 1 Gm Tab PO 11/09/20 22:08 1 gm BID EVON Administration Past Medical History Medical History Anemia Blood in stool Cardiac murmur Chronic back pain Chronic kidney disease, stage 4 (severe) Chronic obstructive pulmonary disease inhaler/nebulizer prn GERD (gastroesophageal reflux disease) Gout Hyperlipidemia Hypertension Peripheral arterial disease Tobacco use disorder Past Family History Family History Mother Family history of diabetes mellitus Brother Family history of diabetes mellitus Sister Family history of diabetes mellitus Other No family history of adverse response to anesthesia Past Surgical History Surgical History History of bilateral cataract extraction History of carpal tunnel release of both wrists History of cholecystectomy History of colonoscopy with polypectomy History of esophagogastroduodenoscopy (EGD) History of laminectomy History of repair of right rotator cuff History of tooth extraction all teeth removed Social History Smoking Status: Current every day smoker tobacco type: cigarettes Smoking cigarettes per day: 20 Do You Dip or Chew Tobacco: No Hx Alcohol Use: No Alcohol type: wine alcohol intake frequency: holidays/special occasions only Hx Substance Use: No substance use type: does not use Physical Exam Vital Signs Last Vital Signs Temp 36.2 C L 10/11/20 11:51 Pulse 63 10/11/20 11:51 Resp 17 10/11/20 11:51 BP 156/72 H 10/11/20 11:51 Pulse Ox 94 10/11/20 11:51 Testing Laboratory Results 10/11/20 07:21 10/11/20 07:21 PT 9.9 Seconds (9.0-12.0) 10/10/20 14:22 INR 1.0 (0.9-1.1) 10/10/20 14:22 Urine Color Yellow 10/10/20 14:30 Urine Appearance Clear (Clear) 10/10/20 14:30 Urine pH 5.0 (4.5-7.5) 10/10/20 14:30 Ur Specific [place] 1.010 (1.000-1.030) 10/10/20 14:30 Urine Protein 2+ (Negative) H 10/10/20 14:30 Urine Glucose (UA) Negative (Negative) 10/10/20 14:30 Urine Ketones Negative (Negative) 10/10/20 14:30 Urine Nitrite Negative (Negative) 10/10/20 14:30 Ur Leukocyte Esterase Trace (Negative) H 10/10/20 14:30 Urine WBC (Auto) 5-10 /hpf (0-5) H 10/10/20 14:30 Urine RBC (Auto) 0-4 /hpf (0-4) 10/10/20 14:30 U Hyaline Cast (Auto) 0 /lpf (0-5) 10/10/20 14:30 U Epithel Cells (Auto) 20-30 /lpf (0-5) H 10/10/20 14:30 Urine Bacteria (Auto) 2+ (Negative) H 10/10/20 14:30 Blood Type O Positive 10/10/20 16:47 Antibody Screen NEGATIVE 10/10/20 16:47 10/10/20 14:30 Urine Culture - Preliminary Urine,Clean Catch Gram negative bacilli Electrocardiogram Date: 10/10/20 Sinus rhythm with 1st degree A-V block Otherwise normal ECG When compared with ECG of 06-APR-2010 20:08, [place] interval has increased Vent. rate has decreased BY 34 BPM Confirmed by Salvatore Coronel ([id number]) on 10/10/2020 6:44:07 PM
[2020-10-11] MEDS ORDERED: PANTOprazole 80 MG in DEXTROSE 5% 100 ML IV STA (14:52)
--- NOTE | 2020-10-11 14:58 | Hospitalist Progress Note ---
Date of Service October 11, 2020 Assessment & Plan (1) Melena: Melena, weight loss, persistent diarrhea and described functional dyspepsia all concerning for upper GI etiology. She doesn't drink ETOH and denies excessive NSAIDs use. She is hemodynamically stable and has not had any further melena or BM since admission. Abdomen is soft, nontender and she is currently NPO. Differential diagnosis includes but not limited to H pylori infection, angioectasias (seen/treated on May 2019), PUD, malignancy. Planned EGD today for investigation. Of note, she was started on PPI drip with bolus, and this fell off the JUL overnight. Will restart with new bolus and continued drip at this time pending further recommendations from GI. (2) Functional dyspepsia: EGD today, would recommend screening with H pylori. (3) UTI (urinary tract infection): Some suprapubic discomfort reported on admission with abnormal UA. Empiric Rocephin pending culture results. (4) Hypertension: Continue amlodipine, hydralazine. Initially held her diuretic out of concern for active GI bleed, however, she appears stable. Will restart her home HCTZ at this time. (5) Peripheral arterial disease: Medically managed with ASA and statin. (6) Chronic obstructive pulmonary disease: Stable, continue albuterol inhaler PRN, no evidence of exacerbation. (7) Chronic kidney disease, stage 4 (severe): Cr at baseline ~ 2.7 Avoid nephrotoxic agents when able Monitor with BMP (8) Tobacco use disorder: Contemplation phase, Nicoderm. Smoking cessation strongly advised. (9) DVT prophylaxis: DVT Ppx: SCDs Code status: FULL Dispo-to home when medically stable. Stop telemetry monitoring at this time. Savannah Gambino DO [facility] Hospitalist Admission and Anticipated Discharge Date Admission Date: October 10, 2020 Subjective 75 yo F with RUQ and epigastric pain over past few weeks including new onset melena two days ago, not present since admission, and worsening of energy. admits to 30lb weight loss from not eating much in last 3 months admits to diarrhea after eating and food intake triggering pain pain radiates from epigastric area up into her central chest and into her RUQ no fevers or chills no nausea or vomiting diarrhea has been persistent no odynophagia or hematemesis reported. no h/o CAD but takes baby aspirin for primary prophylaxis. Review of Systems Review of Systems: All systems reviewed & are unremarkable except as noted in Subjective Physical Exam Physical Exam: CONSTITUTIONAL: obese, vitals as above, generally NAD EYES: normal conjunctivae, no scleral icterus ENT: external ear and nose normal, MMM RESPIRATORY: clear to auscultation bilaterally, no crackles, rales or wheezes, normal respiratory effort CARDIOVASCULAR: regular rate and rhythm, S1 and 2 heard without murmurs, gallops or rubs, no JVD, no peripheral edema CHEST: inspection of chest was normal GASTROINTESTINAL: normal bowel sounds, soft, nontender, nondistended MUSCULOSKELETAL: strength 5/5 throughout, head is normocephalic and atraumatic SKIN: warm and dry NEUROLOGIC: CN 2-12 grossly intact, no sensory deficit, normal cognition, normal speech, no gross focal deficits. PSYCHIATRIC: alert cooperative and oriented to person, place and time. Results & Data Results & Data ([facility]) Vital Signs (Past 12 Hours) Vital Signs Temp Pulse Pulse Pulse Pulse Resp BP 10/11/20 11:51 36.2 C L 63 17 156/72 H 10/11/20 07:48 36.6 C 56 L 17 10/11/20 07:21 58 L 10/11/20 04:00 36.7 C 79 18 149/74 H BP Pulse Ox 10/11/20 11:51 94 10/11/20 07:48 174/66 H 97 10/11/20 07:21 10/11/20 04:00 93 Laboratory Results Short CBC 10/10/20 10/11/20 Range/Units 22:34 07:21 WBC 7.05 (4.8-10.8) K/uL Hgb 10.8 L 9.9 L (12.0-16.0) g/dL Hct 32.1 L 29.2 L (37-47) % Plt Count 189 (130-400) K/uL BMP 10/10/20 10/11/20 14:22 07:21 Sodium 136 140 Potassium 4.2 4.2 Chloride 107 111 H Carbon Dioxide 24 23 BUN 42 H 42 H Creatinine 2.74 H 2.44 H D Glucose 84 79 Calcium 8.7 8.9 Cardiac Enzymes 10/10/20 Range/Units 14:22 Troponin I < 0.015 (0-0.045) ng/ml Liver Function 10/10/20 10/11/20 Range/Units 14:22 07:21 Total Bilirubin 0.4 0.4 (0.2-1) mg/dl AST 18 13 L (15-37) U/L ALT 15 11 L (12-78) U/L Alkaline Phosphatase 178 H 130 H (45-117) U/L Albumin 3.4 2.9 L (3.4-5.0) gm/dl Urine 10/10/20 Range/Units 14:30 Urine Color Yellow Urine Appearance Clear (Clear) Urine pH 5.0 (4.5-7.5) Ur Specific [place] 1.010 (1.000-1.030) Urine Protein 2+ H (Negative) Urine Glucose (UA) Negative (Negative) Medications Administered Current Inpatient Medications Acetaminophen (Acetaminophen 325 Mg Tab) 650 mg PO Q4H PRN PRN Reason: Pain or Fever Stop: 11/09/20 22:08 Albuterol (Albuterol Hfa 8 Gm Inhaler) 2 puffs INH Q6H PRN PRN Reason: Shortness Of Breath Stop: 11/09/20 22:08 Albuterol (Albuterol 0.083% Nebu Soln 3 Ml Vial) 2.5 mg INH Q4 PRN PRN Reason: Shortness Of Breath Stop: 11/09/20 22:41 Amlodipine Besylate (Amlodipine Besylate 5 Mg Tab) 10 mg PO DAILY [facility] Stop: 11/10/20 08:59 Last Admin: 10/11/20 09:15 Dose: 10 mg Documented by: Aspirin (Aspirin 81 Mg Ectab) 81 mg PO QAM [facility] Stop: 11/10/20 08:59 Last Admin: 10/11/20 09:36 Dose: Not Given Documented by: Atorvastatin Calcium (Atorvastatin 40 Mg Tab) 40 mg PO QPM [facility] Stop: 11/09/20 22:08 Last Admin: 10/10/20 23:19 Dose: 40 mg Documented by: Carvedilol (Carvedilol 3.125 Mg Tab) 3.125 mg PO BID [facility] Stop: 11/09/20 22:08 Last Admin: 10/11/20 09:15 Dose: 3.125 mg Documented by: Hydralazine HCl (Hydralazine Tab 50 Mg Tab) 100 mg PO BID [facility] Stop: 11/09/20 22:08 Last Admin: 10/11/20 09:12 Dose: 100 mg Documented by: Ceftriaxone Sodium 2,000 mg/ (Dextrose) 70 mls @ 140 mls/hr IV Q24H [facility]; Protocol Stop: 10/14/20 18:29 Acetaminophen (Ofirmev) 1,000 mg in 100 mls @ 400 mls/hr IV Q8H PRN PRN Reason: Pain Stop: 10/13/20 18:06 Last Infusion: 10/10/20 18:59 Dose: Infused Documented by: Loratadine (Loratadine 10 Mg Tab) 10 mg PO QAM PRN PRN Reason: Allergy Symptoms Stop: 11/09/20 22:08 Last Admin: 10/11/20 09:11 Dose: 10 mg Documented by: Miscellaneous (Remove Nicoderm Patch) 1 ea N/A DAILY@1800 [facility] Stop: 11/10/20 17:59 Multivitamins/Minerals (Calcium 600mg + Vit D 400 Iu Tab) 1 tab PO QAM [facility] Stop: 11/10/20 08:59 Last Admin: 10/11/20 09:11 Dose: 1 tab Documented by: Nicotine (Nicotine 21 Mg/24 Hr Tdsy) 21 mg TD QAM [facility] Stop: 11/09/20 17:44 Last Admin: 10/11/20 09:23 Dose: Not Given Documented by: Ondansetron HCl (Ondansetron Inj 2 Mg/Ml 2 Ml Vial) 4 mg IV Q6H PRN PRN Reason: Nausea Stop: 11/09/20 22:08 Polyethylene Glycol (Polyethylene (Miralax) 17 Gm Pack) 17 gm PO DAILY PRN PRN Reason: Constipation Stop: 11/09/20 22:08 Sucralfate (Sucralfate 1 Gm Tab) 1 gm PO BID [facility] Stop: 11/09/20 22:08 Last Admin: 10/11/20 09:15 Dose: 1 gm Documented by: (1) Hypertension Hypertension type: unspecified Qualified Code(s): I10 - Essential (primary) hypertension
[2020-10-11] MEDS ORDERED: PANTOprazole 40 MG in DEXTROSE 5% 100 ML IV SCH (15:10)
--- NOTE | 2020-10-11 15:36 | History & Physical Report ---
Date of Service October 11, 2020 Assessment & Plan Admission and Anticipated Discharge Date Admission Date: October 10, 2020 History of Present Illness Chief Complaint: Melena Primary Care Provider: Gabbie Hunter PA-C For EGD Allergies Allergy/AdvReac Type Severity Reaction Status Date / Time Bactrim Allergy Severe ELEVATED Verified 08/15/13 14:34 POTASSIUM, BRADYCARDIC "HEART TRIED TO SHUT DOWN" sulfamethoxazole Allergy Severe ELEVATED Verified 10/10/20 15:12 POTASSIUM, BRADYCARDIC "HEART TRIED TO SHUT DOWN" trimethoprim Allergy Severe ELEVATED Verified 10/10/20 15:12 POTASSIUM, BRADYCARDIC "HEART TRIED TO SHUT DOWN" gabapentin Allergy Intermediate HALLUCINATIONS; Verified 10/10/20 15:12 SCREAMING/YELLING codeine Allergy Mild RASH, Verified 10/10/20 15:12 RAPID HEART BEAT hydromorphone [From Dilaudid] AdvReac Mild Hallucinati Verified 10/10/20 15:12 ng Home Medications Medication Instructions Recorded Confirmed Type Calcium 600 + D(3) 1 cap PO QAM 09/16/18 10/10/20 History albuterol sulfate 2.5 mg INHALATION Q4 PRN 09/16/18 10/10/20 History aspirin 81 mg PO QAM 09/16/18 10/10/20 History atorvastatin 40 mg PO QPM 09/16/18 10/10/20 History hydrochlorothiazide 25 mg PO QAM 09/16/18 10/10/20 History loratadine 10 mg PO QAM PRN 09/16/18 10/10/20 History hydralazine 100 mg PO BID 04/19/19 10/10/20 History sucralfate 1 g PO BID 06/08/19 10/10/20 History amlodipine 10 mg PO DAILY 10/10/20 10/10/20 History carvedilol 3.125 mg PO BID 10/10/20 10/10/20 History dexlansoprazole [Dexilant] 30 mg PO DAILY 10/10/20 10/10/20 History Past Med/Surg History Medical History Anemia Blood in stool Cardiac murmur Chronic back pain Chronic kidney disease, stage 4 (severe) Chronic obstructive pulmonary disease inhaler/nebulizer prn GERD (gastroesophageal reflux disease) Gout Hyperlipidemia Hypertension Peripheral arterial disease Tobacco use disorder Surgical History History of bilateral cataract extraction History of carpal tunnel release of both wrists History of cholecystectomy History of colonoscopy with polypectomy History of esophagogastroduodenoscopy (EGD) History of laminectomy History of repair of right rotator cuff History of tooth extraction all teeth removed Family History Mother Family history of diabetes mellitus Brother Family history of diabetes mellitus Sister Family history of diabetes mellitus Other No family history of adverse response to anesthesia Social History Smoking Status: Current every day smoker Tobacco Type: Cigarettes Cigarettes Per Day: 20; Second Hand Exposure: No; Do You Dip or Chew Tobacco: No; Hx Alcohol Use: No Hx Substance Use: No Preferred Language: Citizen Of [place] Communication Ability: Effective [employer] Contact Worker Required: No Beliefs That Will Affect Care: None Current Living Situation: Alone Other Information That Helps Us Care for You: No Feels Safe at Home: Yes Safety Concerns: Feels Safe At This Time Assistive Devices: None and Walker Assistive Devices Comment: Pt does NOT have dentures with her Physical Exam Constitutional: average body habitus Respiratory: Auscultation: + diminished lung sounds Cardiovascular: Rate/Rhythm: regular rate and regular rhythm Gastrointestinal (Abdomen): Percussion/Palpation: abdomen soft Results & Data ([facility]) Vital Signs (Past 12 Hours) Vital Signs Temp Pulse Pulse Pulse Pulse Resp BP 10/11/20 15:17 36.6 C 64 64 16 182/77 H 10/11/20 15:00 36.7 C 62 18 10/11/20 11:51 36.2 C L 63 17 156/72 H 10/11/20 07:48 36.6 C 56 L 17 10/11/20 07:21 58 L 10/11/20 04:00 36.7 C 79 18 149/74 H BP Pulse Ox 10/11/20 15:17 95 10/11/20 15:00 154/66 H 95 10/11/20 11:51 94 10/11/20 07:48 174/66 H 97 10/11/20 07:21 10/11/20 04:00 93 Code Status & VTE Plan VTE Prophylaxis Plan VTE Prophylaxis will be ordered: Yes
[2020-10-11] MEDS ORDERED: SODIUM CHLORIDE 0.9% 1000ML 1,000 ML IV SCH (15:45)
[2020-10-11] MEDS ORDERED: LIDOCAINE 2% 2 ML VIAL/AMP(20MG/ML) INFIL ONE (16:02)
[2020-10-11] MEDS ORDERED: PROPOFOL IV EMULSION 10 MG/ML 20 ML VIAL IV ONE (16:02)
[2020-10-11] MEDS ORDERED: ONDANSETRON INJ 2 MG/ML 2 ML VIAL ONE (16:02)
--- NOTE | 2020-10-11 16:05 | GI REPORT ---
Patient Name: Toña Chapin Procedure Date: 10/11/2020 3:41 PM Date of : 1945 Admit Type: Inpatient Age: 75 Gender: Female Attending MD: Yaw Méndez MD Procedure: Upper GI endoscopy Providers: Yaw Méndez MD Referring MD: Savannah Gambino Do Indications: Iron deficiency anemia secondary to chronic blood loss, Melena Medicines: Propofol total dose 160 mg IV, Ondansetron 4 mg IV, Lidocaine 80 mg IV Complications: No immediate complications. Estimated Blood Loss: Estimated blood loss: none. Procedure: Pre-Anesthesia Assessment: - Prior to the procedure, a History and Physical was performed, and patient medications, allergies and sensitivities were reviewed. The patient's tolerance of previous anesthesia was reviewed. - The risks and benefits of the procedure and the sedation options and risks were discussed with the patient. All questions were answered and informed consent was obtained. After obtaining informed consent, the endoscope was passed under direct vision. Throughout the procedure, the patient's blood pressure, pulse, and oxygen saturations were monitored continuously. The scope was introduced through the mouth, and advanced to the fourth part of duodenum. The upper GI endoscopy was accomplished without difficulty. The patient tolerated the procedure well. Findings: The Z-line was regular and was found 39 cm from the incisors. The examined esophagus was normal. A single 5 mm semi-sessile polyp with no bleeding and no stigmata of recent bleeding was found in the gastric body. The examined duodenum was normal. Impression: - Z-line regular, 39 cm from the incisors. - Normal esophagus. - A single gastric polyp. - Normal examined duodenum. - No specimens collected. Recommendation: - Return patient to [facility] for [facility] care. Yaw Méndez M.D. Yaw Méndez MD 10/11/2020 4:05:34 PM This report has been signed electronically. Note Initiated On: 10/11/2020 3:41 PM Number of Addenda: 0 I attest to the content of the Intraoperative Record and orders documented therein, exceptions below {[id number]}
--- NOTE | 2020-10-11 16:30 | Consultation Report ---
DATE OF CONSULTATION: 10/11/2020 ADDENDUM Addendum to the consult note on the patient done earlier today by Kathi Bland. Examined the patient, went over her history and reviewed her chart and labs. She had a push enteroscopy endoscopy today, which showed a single gastric polyp, but no blood or source of bleeding all the way into the fourth portion of her duodenum. IMPRESSION: The patient presented with some melena and drop in blood count, no source of bleeding is identified on her upper endoscopy extending into the fourth portion of the duodenum. At this point, the patient is stable and I suspect that she can be discharged soon and followed as an outpatient for any further symptoms or loss of blood.
--- NOTE | 2020-10-11 16:59 | Anesthesiology Progress Note ---
Date of Service October 11, 2020 Anesthesia Post Procedure Vital Signs Vital Signs: Temp Pulse Pulse Pulse Pulse Resp BP 10/11/20 16:33 59 L 16 10/11/20 16:21 56 L 16 10/11/20 16:06 59 L 16 10/11/20 15:17 36.6 C 64 64 16 10/11/20 15:00 36.7 C 62 18 10/11/20 14:20 57 L 10/11/20 11:51 36.2 C L 63 17 10/11/20 07:48 36.6 C 56 L 17 10/11/20 07:21 58 L 10/11/20 04:00 36.7 C 79 18 10/10/20 23:45 60 10/10/20 23:23 79 10/10/20 22:18 61 10/10/20 22:14 66 10/10/20 22:09 36.8 C 71 18 10/10/20 20:42 191/73 H BP BP Pulse Ox 10/11/20 16:33 117/59 L 95 10/11/20 16:21 162/58 H 96 10/11/20 16:06 153/40 H 94 10/11/20 15:17 182/77 H 95 10/11/20 15:00 154/66 H 95 10/11/20 14:20 10/11/20 11:51 156/72 H 94 10/11/20 07:48 174/66 H 97 10/11/20 07:21 10/11/20 04:00 149/74 H 93 10/10/20 23:45 10/10/20 23:23 167/78 H 10/10/20 22:18 10/10/20 22:14 10/10/20 22:09 211/71 H 97 10/10/20 20:42 96 Pain Intensity Bilateral Upper Abdomen: Pain Intensity: 6 Transfer of Care Handoff Completed per policy Notes Mental Status: alert / awake / arousable Patient Amnestic to Procedure: Yes Nausea / Vomiting: adequately controlled Pain: adequately controlled Airway Patency, RR, SpO2: stable & adequate BP & HR: stable & adequate Hydration State: stable & adequate Anesthetic Complications: no major complications apparent
[2020-10-11] MEDS: cefTRIAXone SODIUM 2,000 MG in DEXTROSE 5% 50 ML IV SCH (18:16)
[2020-10-11] MEDS ORDERED: FAMOTIDINE 20 MG in SYRINGE 3 ML IV PRN (18:28)
[2020-10-11] MEDS: PANTOprazole 40 MG TAB PO SCH (20:04)
[2020-10-11] MEDS: ATORVASTATIN 40 MG TAB PO SCH (20:07)
[2020-10-12] MEDS: ACETAMINOPHEN 325 MG TAB PO PRN (00:52)
[2020-10-12 06:03] LABS: Hematocrit (blood only) 28.5 % (37-47); Hemoglobin 9.7 g/dL (12.0-16.0); Mean Corpuscular Hemoglobin 30.5 pg (25-34); Mean Corpuscular Volume 89.6 fL (80-100); Mean Platelet Volume 9.6 fL (7.4-10.4); Platelet Count 191 K/uL (130-400); RDW Standard Deviation 49.3 fL (36.4-46.3); Red Blood Count 3.18 M/uL (4.2-5.4); White Blood Count 6.54 K/uL (4.8-10.8)
[2020-10-12 06:39] LABS: BUN Creatinine Ratio 14.9 (10-20); Calcium 8.7 mg/dl (8.5-10.1); Creatinine Clr Calc Pharmacy 21.2 ml/min; Est GFR (African American) 19.3 ml/min; Est GFR (Non-African American) 16.6 ml/min; Potassium 4.4 mmol/L (3.5-5.1)
[2020-10-12] MEDS: PANTOprazole 40 MG TAB PO SCH ×2 (08:25→20:46)
[2020-10-12] MEDS: hydroCHLOROthiazide 25 MG TAB PO SCH (08:25)
[2020-10-12] MEDS: hydrALAZINE TAB 50 MG TAB PO SCH ×2 (08:25→20:47)
[2020-10-12] MEDS: amLODIPine BESYLATE 5 MG TAB PO SCH (08:26)
[2020-10-12] MEDS: ASPIRIN 81 MG ECTAB PO SCH (08:26)
[2020-10-12] MEDS: CALCIUM 600MG + VIT D 400 IU TAB PO SCH (08:27)
[2020-10-12] MEDS: carvediloL 3.125 MG TAB PO SCH ×2 (08:27→20:46)
--- NOTE | 2020-10-12 09:28 | Hospitalist Progress Note ---
Date of Service October 12, 2020 Assessment & Plan (1) Melena: Melena, weight loss, persistent diarrhea and described functional dyspepsia all concerning for upper GI etiology. She doesn't drink ETOH and denies excessive NSAIDs use. She is hemodynamically stable and has not had any further melena or BM since admission. Abdomen is soft, tender at epigastric area and RUQ Differential diagnosis included but not limited to H pylori infection, angioectasias (seen/treated on May 2019), PUD, malignancy. Now s/p Planned push enteroscopy endoscopy with Dr. Méndez from GI (10/11) which revealed a single gastric polyp but no source of bleeding. No specimens were taken. OK to discharge from GI perspective. Patient is currently stable, however, she has not had a BM yet and still feels poorly. Will allow her to eat again and see how she does with food, see if she will have another BM to ensure melena is not still present, monitor H/H. Will check H pylori stool as she is describing functional dyspepsia with symptoms worsening after eating. May be able to sample her stool for infection if she starts to truly have diarrhea in response to eating as she says is ongoing at home. Imaging nonrevealing so far, but continues to have RUQ pain, will obtain US liver famotidine and simethicone prn (2) Functional dyspepsia: s/p EGD on 10/11, would recommend screening for H pylori. (3) UTI (urinary tract infection): Some suprapubic discomfort reported on admission with abnormal UA. Cont. Rocephin for E. coli UTI. (4) Hypertension: Continue amlodipine, hydralazine. Initially held her diuretic out of concern for active GI bleed, however, she appears stable. Will restart her home HCTZ at this time. (5) Peripheral arterial disease: Medically managed with ASA and statin. (6) Chronic obstructive pulmonary disease: Stable, continue albuterol inhaler PRN, no evidence of exacerbation. (7) Chronic kidney disease, stage 4 (severe): Cr at baseline ~ 2.7 Avoid nephrotoxic agents when able Monitor with BMP (8) Tobacco use disorder: Contemplation phase, Nicoderm. Smoking cessation strongly advised. (9) DVT prophylaxis: DVT Ppx: SCDs Code status: FULL Dispo-to home when medically stable. Stopped telemetry monitoring Admission and Anticipated Discharge Date Admission Date: October 10, 2020 Subjective 75 yo F with RUQ and epigastric pain over past few weeks including new onset melena two days ago, not present since admission, and worsening of energy. admits to 30lb weight loss from not eating much in last 3 months admits to diarrhea after eating and food intake triggering pain pain radiates from epigastric area up into her central chest and into her RUQ no fevers or chills no nausea or vomiting diarrhea has been persistent no odynophagia or hematemesis reported. no h/o CAD but takes baby aspirin for primary prophylaxis. Had upper endoscopy yesterday, no active bleeding found, gastric polyp found States she continues to have this type of pain, started eating and did not have a bowel movement yet today hemoglobin however seems to be stable at 9.7 Review of Systems Review of Systems: All systems reviewed & are unremarkable except as noted in HPI & below Constitutional: no fever and no chills Respiratory: no cough and no dyspnea Cardiovascular: no chest pain and no palpitations Gastrointestinal: + abdominal pain (epigastric/ RUQ); no nausea and no vomiting Physical Exam Physical Exam: CONSTITUTIONAL: obese, vitals as above, generally NAD EYES: normal conjunctivae, no scleral icterus ENT: external ear and nose normal, MMM RESPIRATORY: clear to auscultation bilaterally, no crackles, rales or wheezes, normal respiratory effort CARDIOVASCULAR: regular rate and rhythm, S1 and 2 heard without murmurs, gallops or rubs, no JVD, no peripheral edema CHEST: inspection of chest was normal GASTROINTESTINAL: normal bowel sounds, soft, tender to palp. Epigastric area and right upper quadrant, nondistended MUSCULOSKELETAL: strength 5/5 throughout, head is normocephalic and atraumatic, moves extremities NEUROLOGIC: Alert and oriented x3, no sensory deficit, normal cognition, normal speech, no gross focal deficits. SKIN: warm and dry Results & Data Results & Data ([facility]) Vital Signs (Past 12 Hours) Vital Signs Temp Pulse Pulse Resp BP BP Pulse Ox 10/12/20 07:51 36.9 C 56 L 18 145/67 H 95 10/12/20 04:00 36.6 C 56 L 20 135/51 L 94 10/11/20 23:05 36.9 C 56 L 20 115/54 L 92 Laboratory Results 10/12/20 10/12/20 Range/Units 05:31 05:31 WBC 6.54 (4.8-10.8) K/uL RBC 3.18 L (4.2-5.4) M/uL Hgb 9.7 L (12.0-16.0) g/dL Hct 28.5 L (37-47) % MCV 89.6 (80-100) fL MCH 30.5 (25-34) pg MCHC 34.0 (32-36) g/dL RDW Std Deviation 49.3 H (36.4-46.3) fL RDW Coeff of Kris 15.0 H (11.5-14.5) % Plt Count 191 (130-400) K/uL MPV 9.6 (7.4-10.4) fL Sodium 140 (136-145) mmol/L Potassium 4.4 (3.5-5.1) mmol/L Chloride 111 H (98-107) mmol/L Carbon Dioxide 22 (21-32) mmol/L Anion Gap 7.0 (3-11) BUN 40 H (7-18) mg/dl Creatinine 2.69 H (0.6-1.2) mg/dl Est Cr Clr Drug Dosing 21.2 ml/min Est GFR ( Amer) 19.3 ml/min Est GFR (Non-Af Amer) 16.6 ml/min BUN/Creatinine Ratio 14.9 (10-20) Glucose 70 (70-99) mg/dl Calcium 8.7 (8.5-10.1) mg/dl Medications Administered Current Inpatient Medications Acetaminophen (Acetaminophen 325 Mg Tab) 650 mg PO Q4H PRN PRN Reason: Pain or Fever Stop: 11/09/20 22:08 Last Admin: 10/12/20 00:52 Dose: 650 mg Documented by: Albuterol (Albuterol Hfa 8 Gm Inhaler) 2 puffs INH Q6H PRN PRN Reason: Shortness Of Breath Stop: 11/09/20 22:08 Albuterol (Albuterol 0.083% Nebu Soln 3 Ml Vial) 2.5 mg INH Q4 PRN PRN Reason: Shortness Of Breath Stop: 11/09/20 22:41 Amlodipine Besylate (Amlodipine Besylate 5 Mg Tab) [address] [facility] Stop: 11/10/20 08:59 Last Admin: 10/12/20 08:26 Dose: 10 mg Documented by: Aspirin (Aspirin 81 Mg Ectab) [address] [facility] Stop: 11/10/20 08:59 Last Admin: 10/12/20 08:26 Dose: 81 mg Documented by: Atorvastatin Calcium (Atorvastatin 40 Mg Tab) [address] [facility] Stop: 11/09/20 22:08 Last Admin: 10/11/20 20:07 Dose: 40 mg Documented by: Carvedilol (Carvedilol 3.125 Mg Tab) 3.[address] [facility] Stop: 11/09/20 22:08 Last Admin: 10/12/20 08:27 Dose: Not Given Documented by: Hydralazine HCl (Hydralazine Tab 50 Mg Tab) [address] [facility] Stop: 11/09/20 22:08 Last Admin: 10/12/20 08:25 Dose: 100 mg Documented by: Hydrochlorothiazide (Hydrochlorothiazide 25 Mg Tab) [address] [facility] Stop: 11/11/20 08:59 Last Admin: 10/12/20 08:25 Dose: 25 mg Documented by: Ceftriaxone Sodium 2,000 mg/ (Dextrose) 70 mls @ 140 mls/hr IV Q24H [facility]; Protocol Stop: 10/14/20 18:29 Last Infusion: 10/11/20 18:49 Dose: Infused Documented by: Famotidine 20 mg/ Syringe 5 mls @ 2.5 mls/min IV Q12H PRN PRN Reason: heartburn Stop: 11/10/20 18:29 Loratadine (Loratadine 10 Mg Tab) 10 mg PO QAM PRN PRN Reason: Allergy Symptoms Stop: 11/09/20 22:08 Last Admin: 10/11/20 09:11 Dose: 10 mg Documented by: Miscellaneous (Remove Nicoderm Patch) 1 ea N/A DAILY@1800 [facility] Stop: 11/10/20 17:59 Last Admin: 10/11/20 18:17 Dose: 1 ea Documented by: Multivitamins/Minerals (Calcium 600mg + Vit D 400 Iu Tab) [address] [facility] Stop: 11/10/20 08:59 Last Admin: 10/12/20 08:27 Dose: 1 tab Documented by: Nicotine (Nicotine 21 Mg/24 Hr Tdsy) [address] [facility] Stop: 11/09/20 17:44 Last Admin: 10/11/20 18:17 Dose: 21 mg Documented by: Ondansetron HCl (Ondansetron Inj 2 Mg/Ml 2 Ml Vial) 4 mg IV Q6H PRN PRN Reason: Nausea Stop: 11/09/20 22:08 Pantoprazole Sodium (Pantoprazole 40 Mg Tab) [address] [facility] Stop: 11/10/20 20:59 Last Admin: 10/12/20 08:25 Dose: 40 mg Documented by: Polyethylene Glycol (Polyethylene (Miralax) 17 Gm Pack) 17 gm PO DAILY PRN PRN Reason: Constipation Stop: 11/09/20 22:08 (1) Hypertension Hypertension type: unspecified Qualified Code(s): I10 - Essential (primary) hypertension
--- NOTE | 2020-10-12 10:03 | Anesthesiology Progress Note ---
Date of Service October 12, 2020 Anesthesia Post Procedure Vital Signs Vital Signs: Temp Pulse Pulse Pulse Pulse Pulse Resp 10/12/20 07:51 36.9 C 56 L 18 10/12/20 04:00 36.6 C 56 L 20 10/11/20 23:05 36.9 C 56 L 20 10/11/20 19:25 36.8 C 65 65 20 10/11/20 16:33 59 L 16 10/11/20 16:21 56 L 16 10/11/20 16:06 59 L 16 10/11/20 15:17 36.6 C 64 64 16 10/11/20 15:00 36.7 C 62 18 10/11/20 14:20 57 L 10/11/20 11:51 36.2 C L 63 17 BP BP Pulse Ox 10/12/20 07:51 145/67 H 95 10/12/20 04:00 135/51 L 94 10/11/20 23:05 115/54 L 92 10/11/20 19:25 179/66 H 92 10/11/20 16:33 117/59 L 95 10/11/20 16:21 162/58 H 96 10/11/20 16:06 153/40 H 94 10/11/20 15:17 182/77 H 95 10/11/20 15:00 154/66 H 95 10/11/20 14:20 10/11/20 11:51 156/72 H 94 Pain Intensity Bilateral Upper Abdomen: Pain Intensity: 3 Transfer of Care Handoff Completed per policy Notes Mental Status: alert / awake / arousable and participated in evaluation Nausea / Vomiting: adequately controlled Pain: adequately controlled Airway Patency, RR, SpO2: stable & adequate BP & HR: stable & adequate Hydration State: stable & adequate Anesthetic Complications: no major complications apparent and Pt Satisfied with anesthetic care
[2020-10-12] MEDS ORDERED: SIMETHICONE 80 MG CHEW PO PRN (15:17)
[2020-10-12] MEDS ORDERED: FAMOTIDINE 20 MG in SYRINGE 3 ML IV ONE (15:30)
[2020-10-12] MEDS: cefTRIAXone SODIUM 2,000 MG in DEXTROSE 5% 50 ML IV SCH (17:27)
--- NOTE | 2020-10-12 17:29 | Ultrasound Report ---
US liver HISTORY: 75 years-old Female RUQ pain acute right upper quadrant abdominal pain COMPARISON: CT abdomen and pelvis 10/10/2020 TECHNIQUE: Multiple real-time sonographic images of the abdominal right upper quadrant were obtained assessing grayscale appearance and color flow FINDINGS: The visualized pancreas is unremarkable. The liver is within normal limits. Cholecystectomy. Hepatope bonilla flow within the portal vein. Common bile duct is within normal limits measuring 7 mm. Mild right-sided pelviectasis. Cysts of the right kidney measure up to 2.0 cm within the interpolar d istribution. Previously noted right nephrolithiasis is not identified by ultrasound. IMPRESSION: 1. Mild right-sided pelviectasis without jose hydronephrosis. Correlate with urinalysis. 2. Cholecystectomy. ACT 112: Negative or not required by law. The above report was generated using voice recognition software. It may contain grammatical, syntax o r spelling errors. Electronically signed by: Sami Nascimento M.D. 10/12/2020 5:28 PM
--- NOTE | 2020-10-12 19:12 | Gastroenterology Progress Note ---
Date of Service October 12, 2020 Assessment & Plan (1) RUQ pain: EGD, CT and liver us negative for pathology. She is on PPI to cover for dyspepsia. She is s/p alley. Other findings in the differential include metabolic issues so check TSH and cortisol, celiac sprue so check TTG and IGA and neuropathic pain given signiicant back problems (defer workup of back to hospitalist). Melena---EGD to 4th duodenum neg. No stools for 24 hours suggesting this has slowed or stopped. Admission and Anticipated Discharge Date Admission Date: October 10, 2020 Subjective cc abd pain HPI No BM yesterday or today. Ongoing RUQ pain no change with diet or position. Pt states has significant back problems with hx of back surgery. Also son diagnosed with celiac sprue. Physical Exam Gastrointestinal (Abdomen): pos bs, soft, RUQ guarding but no rebound. Results & Data ([facility]) Vital Signs (Past 12 Hours) Vital Signs Temp Pulse Resp BP Pulse Ox 10/12/20 18:38 36.9 C 63 18 181/72 H 94 10/12/20 15:35 36.9 C 58 L 18 168/63 H 92 10/12/20 07:51 36.9 C 56 L 18 145/67 H 95
[2020-10-12] MEDS: NICOTINE 21 MG/24 HR TDSY TD SCH (19:20)
[2020-10-12] MEDS: ATORVASTATIN 40 MG TAB PO SCH (20:45)
[2020-10-12] MEDS ORDERED: MELATONIN 3 MG TAB PO PRN (21:22)
[2020-10-13 07:51] LABS: Hematocrit (blood only) 28.9 % (37-47); Hemoglobin 9.5 g/dL (12.0-16.0); Mean Corpuscular Hgb Conc 32.9 g/dL (32-36); Mean Corpuscular Volume 91.2 fL (80-100); Mean Platelet Volume 9.5 fL (7.4-10.4); Platelet Count 199 K/uL (130-400); RDW Coefficient of Variation 14.8 % (11.5-14.5); RDW Standard Deviation 49.8 fL (36.4-46.3); Red Blood Count 3.17 M/uL (4.2-5.4); White Blood Count 6.11 K/uL (4.8-10.8)
[2020-10-13] MEDS: hydroCHLOROthiazide 25 MG TAB PO SCH (08:00)
[2020-10-13] MEDS: carvediloL 3.125 MG TAB PO SCH ×2 (08:00→20:01)
[2020-10-13] MEDS: hydrALAZINE TAB 50 MG TAB PO SCH ×2 (08:01→20:00)
[2020-10-13] MEDS: amLODIPine BESYLATE 5 MG TAB PO SCH (08:01)
[2020-10-13] MEDS: PANTOprazole 40 MG TAB PO SCH ×2 (08:02→19:59)
[2020-10-13] MEDS: ASPIRIN 81 MG ECTAB PO SCH (08:02)
[2020-10-13] MEDS: CALCIUM 600MG + VIT D 400 IU TAB PO SCH (08:03)
[2020-10-13] MEDS: NICOTINE 21 MG/24 HR TDSY TD SCH (08:17)
[2020-10-13 08:29] LABS: BUN Creatinine Ratio 15.5 (10-20); Calcium 9.2 mg/dl (8.5-10.1); Est GFR (Non-African American) 15.5 ml/min; Magnesium 1.9 mg/dl (1.8-2.4); Potassium 4.4 mmol/L (3.5-5.1)
[2020-10-13 08:39] LABS: Phosphorus 4.5 mg/dl (2.5-4.9); Thyroid Stimulating Hormone 3.38 uIu/ml (0.300-4.500)
--- NOTE | 2020-10-13 10:50 | Ultrasound Report ---
US duplex mesenteric CLINICAL HISTORY: Right upper quadrant abd. pain, r/o mesenteric stenosis COMPARISON STUDY: Abdominal ultrasound 10/12/2020. FINDINGS: Elevated peak systolic velocity within the celiac artery measuring 397 cm/s as well as the proximal and mid superior mesenteric artery measuring up to 397 cm/s. Hepatic artery demonstrates nor mal velocities and 99 cm/s. Borderline elevated velocities within the splenic artery measuring up to 170 cm/s. 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 No evidence for arterial occlusion. ACT 112: Negative or not required by law. Electronically signed by: Faisal Azul M.D. 10/13/2020 10:48 AM
--- NOTE | 2020-10-13 12:28 | Hospitalist Progress Note ---
Date of Service October 13, 2020 Assessment & Plan (1) Melena: Melena, weight loss, persistent diarrhea and described functional dyspepsia all concerning for upper GI etiology. She doesn't drink ETOH and denies excessive NSAIDs use. She is hemodynamically stable and has not had any further melena or BM since admission. Abdomen is soft, tender at epigastric area and RUQ Differential diagnosis included but not limited to H pylori infection, angioectasias (seen/treated on May 2019), PUD, malignancy. Now s/p Planned push enteroscopy endoscopy with Dr. Méndez from GI (10/11) which revealed a single gastric polyp but no source of bleeding. No specimens were taken. Patient is currently stable, however, she has not had a BM yet and still feels poorly. Will allow her to eat again and see how she does with food, see if she will have another BM to ensure melena is not still present, monitor H/H. Will check H pylori stool as she is describing functional dyspepsia with symptoms worsening after eating. May be able to sample her stool for infection if she starts to truly have diarrhea in response to eating as she says is ongoing at home. 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 Love, from vascular surgery, CT angio not obtained due to patient's CKD, recommend MRA of abdomen to eval mesenteric vessels, will obtain Per GI, further evaluation, possible metabolic issues, ordered TSH and cortisol, also evaluate for celiac sprue also ordered TTG and IgA (2) Functional dyspepsia: s/p EGD on 10/11, would recommend screening for H pylori. (3) UTI (urinary tract infection): Some suprapubic discomfort reported on admission with abnormal UA. Cont. Rocephin for E. coli UTI. (4) Hypertension: Continue amlodipine, hydralazine. Initially held her diuretic out of concern for active GI bleed, however, she appears stable. Currently hypertensive, will restart home medications as appropriate (5) Peripheral arterial disease: Medically managed with ASA and statin. (6) Chronic obstructive pulmonary disease: Stable, continue albuterol inhaler PRN, no evidence of exacerbation. (7) Chronic kidney disease, stage 4 (severe): Cr at baseline ~ 2.7 Avoid nephrotoxic agents when able Monitor with BMP (8) Tobacco use disorder: Contemplation phase, Nicoderm. Smoking cessation strongly advised. (9) DVT prophylaxis: DVT Ppx: SCDs Code status: FULL Dispo-to home when medically stable. Stopped telemetry monitoring Admission and Anticipated Discharge Date Admission Date: October 10, 2020 Subjective 75 yo F with RUQ and epigastric pain over past few weeks including new onset melena two days ago, not present since admission, and worsening of energy. admits to 30lb weight loss from not eating much in last 3 months admits to diarrhea after eating and food intake triggering pain pain radiates from epigastric area up into her central chest and into her RUQ no fevers or chills no nausea or vomiting Had upper endoscopy, no active bleeding found, gastric polyp found States she continues to have this type of pain, started eating and did not have a bowel movement yet today hemoglobin however seems to be relatively stable Ultrasound of mesentery, shows stenosis, discussed with vascular surgeon, will obtain MRA of abdomen to evaluate mesenteric vessels Also seen by GI, further work-up/labs ordered Review of Systems Review of Systems: All systems reviewed & are unremarkable except as noted in HPI & below Constitutional: no fever and no chills Respiratory: no cough and no dyspnea Cardiovascular: no chest pain and no palpitations Gastrointestinal: + abdominal pain (epigastric/ RUQ); no nausea and no vomiting Physical Exam Physical Exam: CONSTITUTIONAL: obese, vitals as above, generally NAD EYES: normal conjunctivae, no scleral icterus ENT: external ear and nose normal, MMM RESPIRATORY: clear to auscultation bilaterally, no crackles, rales or wheezes, normal respiratory effort CARDIOVASCULAR: regular rate and rhythm, S1 and 2 heard without murmurs, gallops or rubs, no JVD, no peripheral edema CHEST: inspection of chest was normal GASTROINTESTINAL: normal bowel sounds, soft, tender to palp. Epigastric area and right upper quadrant, nondistended MUSCULOSKELETAL: strength 5/5 throughout, head is normocephalic and atraumatic, moves extremities NEUROLOGIC: Alert and oriented x3, no sensory deficit, normal cognition, normal speech, no gross focal deficits. SKIN: warm and dry Results & Data Results & Data ([facility]) Vital Signs (Past 12 Hours) Vital Signs Temp Pulse Resp BP Pulse Ox 10/13/20 11:47 36.6 C 61 18 167/72 H 98 10/13/20 07:00 36.6 C 50 L 20 154/72 H 98 10/13/20 03:25 36.6 C 54 L 20 118/56 L 93 Laboratory Results 10/13/20 10/13/20 10/13/20 Range/Units 07:32 07:32 07:32 WBC (4.8-10.8) K/uL RBC (4.2-5.4) M/uL Hgb (12.0-16.0) g/dL Hct (37-47) % MCV (80-100) fL MCH (25-34) pg MCHC (32-36) g/dL RDW Std Deviation (36.4-46.3) fL RDW Coeff of Kris (11.5-14.5) % Plt Count (130-400) K/uL MPV (7.4-10.4) fL Sodium 139 (136-145) mmol/L Potassium 4.4 (3.5-5.1) mmol/L Chloride 111 H (98-107) mmol/L Carbon Dioxide 22 (21-32) mmol/L Anion Gap 6.0 (3-11) BUN 44 H (7-18) mg/dl Creatinine 2.85 H (0.6-1.2) mg/dl Est Cr Clr Drug Dosing 20.0 ml/min Est GFR ( Amer) 18.0 ml/min Est GFR (Non-Af Amer) 15.5 ml/min BUN/Creatinine Ratio 15.5 (10-20) Glucose 82 (70-99) mg/dl Calcium 9.2 (8.5-10.1) mg/dl Phosphorus 4.5 (2.5-4.9) mg/dl Magnesium 1.9 (1.8-2.4) mg/dl TSH 3.380 (0.300-4.500) uIu/ml Cortisol AM Sample Pending IgA 111.0 (70-400) mg/dl Tiss Transglutamin IgA Pending 10/13/20 Range/Units 07:32 WBC 6.11 (4.8-10.8) K/uL RBC 3.17 L (4.2-5.4) M/uL Hgb 9.5 L (12.0-16.0) g/dL Hct 28.9 L (37-47) % MCV 91.2 (80-100) fL MCH 30.0 (25-34) pg MCHC 32.9 (32-36) g/dL RDW Std Deviation 49.8 H (36.4-46.3) fL RDW Coeff of Kris 14.8 H (11.5-14.5) % Plt Count 199 (130-400) K/uL MPV 9.5 (7.4-10.4) fL Sodium (136-145) mmol/L Potassium (3.5-5.1) mmol/L Chloride (98-107) mmol/L Carbon Dioxide (21-32) mmol/L Anion Gap (3-11) BUN (7-18) mg/dl Creatinine (0.6-1.2) mg/dl Est Cr Clr Drug Dosing ml/min Est GFR ( Amer) ml/min Est GFR (Non-Af Amer) ml/min BUN/Creatinine Ratio (10-20) Glucose (70-99) mg/dl Calcium (8.5-10.1) mg/dl Phosphorus (2.5-4.9) mg/dl Magnesium (1.8-2.4) mg/dl TSH (0.300-4.500) uIu/ml Cortisol AM Sample IgA (70-400) mg/dl Tiss Transglutamin IgA Diagnostic Findings CT Abd. IMPRESSION: 1. There are no acute infectious or inflammatory findings in the abdomen or pelvis. 2. Bilateral nephrolithiasis. 3. Additional findings as above. US liver IMPRESSION: 1. Mild right-sided pelviectasis without jose hydronephrosis. Correlate with urinalysis. 2. Cholecystectomy. 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 No evidence for arterial occlusion. Medications Administered Current Inpatient Medications Acetaminophen (Acetaminophen 325 Mg Tab) 650 mg PO Q4H PRN PRN Reason: Pain or Fever Stop: 11/09/20 22:08 Last Admin: 10/12/20 00:52 Dose: 650 mg Documented by: Albuterol (Albuterol Hfa 8 Gm Inhaler) 2 puffs INH Q6H PRN PRN Reason: Shortness Of Breath Stop: 11/09/20 22:08 Albuterol (Albuterol 0.083% Nebu Soln 3 Ml Vial) 2.5 mg INH Q4 PRN PRN Reason: Shortness Of Breath Stop: 11/09/20 22:41 Amlodipine Besylate (Amlodipine Besylate 5 Mg Tab) 10 mg PO DAILY [facility] Stop: 11/10/20 08:59 Last Admin: 10/13/20 08:01 Dose: 10 mg Documented by: Aspirin (Aspirin 81 Mg Ectab) 81 mg PO QAM [facility] Stop: 11/10/20 08:59 Last Admin: 10/13/20 08:02 Dose: 81 mg Documented by: Atorvastatin Calcium (Atorvastatin 40 Mg Tab) 40 mg PO QPM [facility] Stop: 11/09/20 22:08 Last Admin: 10/12/20 20:45 Dose: 40 mg Documented by: Carvedilol (Carvedilol 3.125 Mg Tab) 3.125 mg PO BID [facility] Stop: 11/09/20 22:08 Last Admin: 10/13/20 08:00 Dose: Not Given Documented by: Hydralazine HCl (Hydralazine Tab 50 Mg Tab) 100 mg PO BID [facility] Stop: 11/09/20 22:08 Last Admin: 10/13/20 08:01 Dose: 100 mg Documented by: Hydrochlorothiazide (Hydrochlorothiazide 25 Mg Tab) 25 mg PO QAM [facility] Stop: 11/11/20 08:59 Last Admin: 10/13/20 08:00 Dose: 25 mg Documented by: Ceftriaxone Sodium 2,000 mg/ (Dextrose) 70 mls @ 140 mls/hr IV Q24H [facility]; Protocol Stop: 10/14/20 18:29 Last Infusion: 10/12/20 19:21 Dose: Infused Documented by: Famotidine 20 mg/ Syringe 5 mls @ 2.5 mls/min IV Q12H PRN PRN Reason: heartburn Stop: 11/10/20 18:29 Loratadine (Loratadine 10 Mg Tab) 10 mg PO QAM PRN PRN Reason: Allergy Symptoms Stop: 11/09/20 22:08 Last Admin: 10/11/20 09:11 Dose: 10 mg Documented by: Melatonin (Melatonin 3 Mg Tab) 3 mg PO HS PRN PRN Reason: Sleep Stop: 11/11/20 21:21 Miscellaneous (Remove Nicoderm Patch) 1 ea N/A DAILY@0859 [facility] Stop: 11/10/20 17:59 Last Admin: 10/13/20 08:03 Dose: 1 ea Documented by: Multivitamins/Minerals (Calcium 600mg + Vit D 400 Iu Tab) 1 tab PO QAM [facility] Stop: 11/10/20 08:59 Last Admin: 10/13/20 08:03 Dose: 1 tab Documented by: Nicotine (Nicotine 21 Mg/24 Hr Tdsy) 21 mg TD QAM [facility] Stop: 11/09/20 17:44 Last Admin: 10/13/20 08:17 Dose: 21 mg Documented by: Ondansetron HCl (Ondansetron Inj 2 Mg/Ml 2 Ml Vial) 4 mg IV Q6H PRN PRN Reason: Nausea Stop: 11/09/20 22:08 Pantoprazole Sodium (Pantoprazole 40 Mg Tab) 40 mg PO BID [facility] Stop: 11/10/20 20:59 Last Admin: 10/13/20 08:02 Dose: 40 mg Documented by: Polyethylene Glycol (Polyethylene (Miralax) 17 Gm Pack) 17 gm PO DAILY PRN PRN Reason: Constipation Stop: 11/09/20 22:08 Simethicone (Simethicone 80 Mg Chew) 80 mg PO Q6H PRN PRN Reason: abdominal discomfort Stop: 11/11/20 15:16 (1) Hypertension Hypertension type: unspecified Qualified Code(s): I10 - Essential (primary) hypertension
[2020-10-13] MEDS ORDERED: hydrALAZINE HCL 20 MG/ML VIAL IV PRN (12:58)
--- NOTE | 2020-10-13 16:59 | Magnetic Resonance Report ---
MR angio abdomen wo con HISTORY: Epigastric pain. Melena. Stenosis of the mesenteric arteries. abnormal US of mesenteric art cierra TECHNIQUE: MRA of the abdomen was performed without contrast according to standard departmental emily col. COMPARISON STUDY: Abdomen and pelvis CT 10/10/2020. FINDINGS: Mild dextroscoliosis of the lumbar spine. Small bilateral renal cysts are again noted. The lung bases are clear. Trace pericardial effusion, unchanged. Cholecystectomy. No hepatic or splenic m asses. The left kidney is atrophic comparison to the right. No hydronephrosis. The portal vein and IV C appear patent. The visualized loops of bowel show no wall thickening or obstruction. Atheroscleroti c plaque throughout the abdominal aorta without evidence for stenosis or aneurysm. Focal stenosis of approximately 80% at the origin of the celiac artery. There is also focal stenosis of approximately 70% at the origin of the superior mesenteric artery. There are focal areas of high-g rade stenosis within the bilateral proximal renal arteries measuring approximately 80% on the left an d 90% on the right. The mid to distal superior mesenteric artery appears patent. The common hepatic a rtery is likely patent. IMPRESSION: 1. Focal areas of hemodynamically significant stenosis seen within the proximal celiac artery, proxim al superior mesenteric artery, and proximal bilateral renal arteries as described above. 2. Trace pericardial effusion, unchanged. 3. Cholecystectomy. 4. Atherosclerotic plaque within the abdominal aorta. No evidence for an abdominal aortic aneurysm. ACT 112: Negative or not required by law. Electronically signed by: Faisal Azul M.D. 10/13/2020 4:58 PM
--- NOTE | 2020-10-13 17:36 | Gastroenterology Progress Note ---
Date of Service October 13, 2020 Assessment & Plan (1) RUQ pain: EGD, CT and liver us negative for pathology. She is on PPI to cover for dyspepsia. She is s/p alley. Other findings in the differential include metabolic issues: TSH normal and cortisol pending, celiac sprue total IgA normal but TTG pending, . Mesenteric US and MRA show significant narrowing Celiac artery and SMA so chronic ischemia possible although usually need complete obstruction to produce symptoms--would get vascular involved for an opinion. If vascular does not feel ischemia causing pain then would do workup of spine because spinal stenosis can cause neuropathic pain. Melena---EGD to 4th duodenum neg. No stools for 24 hours suggesting this has slowed or stopped. I am going off service tomorrow 10/14/[address] Méndez is assuming GI care then. Admission and Anticipated Discharge Date Admission Date: October 10, 2020 Subjective cc abd pain HPI No bms today. She states she is eating. States pain epi/RUQ about 4/10 at present. Physical Exam Gastrointestinal (Abdomen): pos bs, soft, no guarding nor rebound Results & Data ([facility]) Vital Signs (Past 12 Hours) Vital Signs Temp Pulse Resp BP Pulse Ox 10/13/20 16:22 36.7 C 61 18 184/72 H 97 10/13/20 11:47 36.6 C 61 18 167/72 H 98 10/13/20 07:00 36.6 C 50 L 20 154/72 H 98
[2020-10-13] MEDS: cefTRIAXone SODIUM 2,000 MG in DEXTROSE 5% 50 ML IV SCH (18:42)
[2020-10-13] MEDS: ATORVASTATIN 40 MG TAB PO SCH (20:01)
[2020-10-13] MEDS: ACETAMINOPHEN 325 MG TAB PO PRN (22:36)
[2020-10-14 08:12] LABS: Hematocrit (blood only) 29.9 % (37-47); Mean Corpuscular Hemoglobin 30.3 pg (25-34); Mean Corpuscular Hgb Conc 33.4 g/dL (32-36); Mean Corpuscular Volume 90.6 fL (80-100); Platelet Count 202 K/uL (130-400); RDW Coefficient of Variation 14.7 % (11.5-14.5); RDW Standard Deviation 49.1 fL (36.4-46.3); White Blood Count 5.71 K/uL (4.8-10.8)
[2020-10-14] MEDS: NICOTINE 21 MG/24 HR TDSY TD SCH (08:23)
[2020-10-14] MEDS: PANTOprazole 40 MG TAB PO SCH ×2 (08:23→20:10)
[2020-10-14] MEDS: hydroCHLOROthiazide 25 MG TAB PO SCH (08:24)
[2020-10-14] MEDS: hydrALAZINE TAB 50 MG TAB PO SCH ×2 (08:24→20:10)
[2020-10-14] MEDS: carvediloL 3.125 MG TAB PO SCH ×2 (08:25→20:09)
--- NOTE | 2020-10-14 08:25 | Gastroenterology Progress Note ---
Date of Service October 14, 2020 Assessment & Plan (1) RUQ pain: RUQ pain: Epigastric pain radiating to the RUQ continues. On PPI to cover dyspepsia. TSH WNL. AM cortisol pending. Celiac sprue - IgA WNL, TTG pending. Mesenteric US and MRA show significant narrowing celiac artery and SMA so chronic ischemia possible - Vascular service consulted. Melena: EGD to 4th duodenum neg. Patient reports no bowel movement the last few days. Please refer to supervising physician addendum for further recommendations. Admission and Anticipated Discharge Date Admission Date: October 10, 2020 Subjective The patient is sitting upright in bed and just finishing up breakfast. Tolerated breakfast without difficulty this morning. Continues to c/p epigastric abdominal pain that radiates to RUQ. Denies nausea or vomiting this morning. Was experiencing diarrhea prior to admission. Has not had a bowel movement since admission. Review of Systems Review of Systems: All systems reviewed & are unremarkable except as noted in Subjective Physical Exam Gastrointestinal (Abdomen): Inspection/Auscultation: abdomen normal to inspection and normal bowel sounds; abdomen not distended Percus melba/Palpation: + abdomen tender (epigastric directly below sternum); no guarding and abdomen not rigid Results & Data ([facility]) Vital Signs (Past 12 Hours) Vital Signs Temp Pulse Resp BP Pulse Ox 10/14/20 07:09 36.7 C 53 L 20 126/73 93 10/14/20 03:30 36.8 C 53 L 20 128/69 96 10/13/20 23:00 36.7 C 58 L 20 136/71 94 Laboratory Results - last 24 hr 10/13/20 10/14/20 10/14/20 07:32 07:49 07:49 WBC 5.71 RBC 3.30 L Hgb 10.0 L Hct 29.9 L MCV 90.6 MCH 30.3 MCHC 33.4 RDW Std Deviation 49.1 H RDW Coeff of Kris 14.7 H Plt Count 202 MPV 9.0 Sodium 138 Potassium 4.2 Chloride 108 H Carbon Dioxide 23 Anion Gap 7.0 BUN 44 H Creatinine 2.99 H Est Cr Clr Drug Dosing 19.0 Est GFR ( Amer) 17.0 Est GFR (Non-Af Amer) 14.6 BUN/Creatinine Ratio 14.7 Glucose 80 Calcium 9.0 Phosphorus 4.5 4.3 Magnesium 1.8 TSH 3.380 IgA 111.0 10/12/2020: US liver demonstrated 1. Mild right-sided pelviectasis without jose hydronephrosis. Correlate with urinalysis. 2. Cholecystectomy. 10/13/2020: MR angio abdomen wo con demonstrated 1. Focal areas of hemodynamically significant stenosis seen within the proximal celiac artery, proximal superior mesenteric artery, and proximal bilateral renal arteries as described above. 2. Trace pericardial effusion, unchanged. 3. Cholecystectomy. 4. Atherosclerotic plaque within the abdominal aorta. No evidence for an abdominal aortic aneurysm. 10/13/2020: US duplex mesenteric demonstrated hemodynamically significant stenosis involving the proximal celiac and superior mesenteric arteries. No evidence for arterial occlusion.
[2020-10-14] MEDS: amLODIPine BESYLATE 5 MG TAB PO SCH (08:26)
[2020-10-14] MEDS: ASPIRIN 81 MG ECTAB PO SCH (08:26)
[2020-10-14] MEDS: CALCIUM 600MG + VIT D 400 IU TAB PO SCH (08:28)
[2020-10-14] MEDS: LORATADINE 10 MG TAB PO PRN (08:28)
[2020-10-14 08:36] LABS: BUN Creatinine Ratio 14.7 (10-20); Est GFR (Non-African American) 14.6 ml/min; Magnesium 1.8 mg/dl (1.8-2.4); Phosphorus 4.3 mg/dl (2.5-4.9); Potassium 4.2 mmol/L (3.5-5.1)
--- NOTE | 2020-10-14 09:55 | Consultation ---
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 No need for vascular surgical intervention at this time. Recommend further eval/treatment of current abd pain. Will reeval pt in office. (2) Renal artery stenosis: Pt with significant renal art stenosis on MRA and atrophic kidneys on CT scan. No need for vascular surgical intervention at this time. Will reeval in office. History of Present Illness Reason for Consultation: mesenteric stenosis, renal art stenosis Attending Physician: Karoline Car MD History of Present Illness 75 yo f with hx of HTN, CKD, hyperlipidemia, GERD, PAD, COPD, admitted with severe RUQ abd pain and melena, seen in consultation today for mesenteric and celiac art stenosis noted on US and MRA, as well as renal art stenosis noted on MRA. Pt states she came to [facility] for eval d/t severe RUQ pain. She has been having this aching pain constantly for about 2 months, but it became severe so came to ED. Additionally, she has been having sharp pains across her lower abdomen and then having diarrhea after eating for about 6 months. This pain is also constant, but very mild unless she eats. This is different than the pain for which she is currently admitted. She usually eats 2 meals a day, but states has not been eating as much bc she knows she will have the abd pain and diarrhea if she does. Has lost approx 35lbs over past 6 months to a year unintentionally. RUQ pain is still present, but she states her lower abd pain seems to have resolved since admission and she is able to eat while in hospital. Additionally, she states her PCP and tester sound have had difficulty getting her BP under control and she recently started a new HTN medication. States her BP at home run in 150's/60's typically, but it is higher in her PCP and tester sound's office. Denies MONZON, fever, recent illness, chest pain, SOB, N/V, rest pain, claudication, other complaints. MRA demonstrates 70% stenosis of SMA and celiac art, and 80% stenosis of BL renal art. Allergies Allergy/AdvReac Type Severity Reaction Status Date / Time Bactrim Allergy Severe ELEVATED Verified 08/15/13 14:34 POTASSIUM, BRADYCARDIC "HEART TRIED TO SHUT DOWN" sulfamethoxazole Allergy Severe ELEVATED Verified 10/10/20 15:12 POTASSIUM, BRADYCARDIC "HEART TRIED TO SHUT DOWN" trimethoprim Allergy Severe ELEVATED Verified 10/10/20 15:12 POTASSIUM, BRADYCARDIC "HEART TRIED TO SHUT DOWN" gabapentin Allergy Intermediate HALLUCINATIONS; Verified 10/10/20 15:12 SCREAMING/YELLING codeine Allergy Mild RASH, Verified 10/10/20 15:12 RAPID HEART BEAT hydromorphone [From Dilaudid] AdvReac Mild Hallucinati Verified 10/10/20 15:12 ng Home Medications Medication Instructions Recorded Confirmed Type Calcium 600 + D(3) 1 cap PO QAM 09/16/18 10/10/20 History albuterol sulfate 2.5 mg INHALATION Q4 PRN 09/16/18 10/10/20 History aspirin 81 mg PO QAM 09/16/18 10/10/20 History atorvastatin 40 mg PO QPM 09/16/18 10/10/20 History hydrochlorothiazide 25 mg PO QAM 09/16/18 10/10/20 History loratadine 10 mg PO QAM PRN 09/16/18 10/10/20 History hydralazine 100 mg PO BID 04/19/19 10/10/20 History sucralfate 1 g PO BID 06/08/19 10/10/20 History amlodipine 10 mg PO DAILY 10/10/20 10/10/20 History carvedilol 3.125 mg PO BID 10/10/20 10/10/20 History dexlansoprazole [Dexilant] 30 mg PO DAILY 10/10/20 10/10/20 History Patient History Medical History Anemia Blood in stool Cardiac murmur Chronic back pain Chronic kidney disease, stage 4 (severe) Chronic obstructive pulmonary disease inhaler/nebulizer prn GERD (gastroesophageal reflux disease) Gout Hyperlipidemia Hypertension Peripheral arterial disease Tobacco use disorder Surgical History History of bilateral cataract extraction History of carpal tunnel release of both wrists History of cholecystectomy History of colonoscopy with polypectomy History of esophagogastroduodenoscopy (EGD) History of laminectomy History of repair of right rotator cuff History of tooth extraction all teeth removed Family History Mother Family history of diabetes mellitus Brother Family history of diabetes mellitus Sister Family history of diabetes mellitus Other No family history of adverse response to anesthesia Social History Smoking Status: Current every day smoker Tobacco Type: Cigarettes Cigarettes Per Day: 20; Second Hand Exposure: No; Do You Dip or Chew Tobacco: No; Hx Alcohol Use: No Hx Substance Use: No Preferred Language: Israeli Communication Ability: Effective Flight Superintendent Required: No Beliefs That Will Affect Care: None Current Living Situation: Alone Other Information That Helps Us Care for You: No Feels Safe at Home: Yes Safety Concerns: Feels Safe At This Time Assistive Devices: Walker Assistive Devices Comment: Pt does NOT have dentures with her Review of Systems Review of Systems: All systems reviewed & are unremarkable except as noted in HPI & below (positive for chronic numbness/tingling in BL feet) Physical Exam Constitutional: WD/WN, vitals as above healthy appearing, cooperative and comfortable; not in distress Eyes: PERRL, conjunctivae normal, anicteric sclerae ENMT: Ears: no hearing impairment Neck: trachea midline Respiratory: normal respiratory effort, lungs clear to auscultation Auscultation: + diminished lung sounds Cardiovascular: Rate/Rhythm: regular rate and regular rhythm Vessels: femoral pulses present, posterior tibial pulses present, dorsalis pedis pulses present and radial pulses present Extremities: normal capillary refill; no edema Gastrointestinal (Abdomen): Inspection/Auscultation: abdomen normal to inspection; abdomen not distended Percussion/Palpation: + abdomen tender and abdomen soft; no guarding and abdomen not rigid Musculoskeletal: Extremities: extremities normal to inspection and strength 5/5 throughout Skin: no rashes, warm and dry Neurologic: moves all extremities and awake; no focal motor deficits and not confused Psychiatric: A+Ox3, euthymic affect Results & Data ([facility]) Vital Signs (Past 12 Hours) Vital Signs Temp Pulse Resp BP Pulse Ox 10/14/20 07:09 36.7 C 53 L 20 126/73 93 10/14/20 03:30 36.8 C 53 L 20 128/69 96 10/13/20 23:00 36.7 C 58 L 20 136/71 94
--- NOTE | 2020-10-14 11:47 | XRay Report ---
XR thoracic spine 3V routine CLINICAL HISTORY: pain COMPARISON STUDY: No previous studies for comparison. FINDINGS: The paraspinal line is not significantly displaced. There are mild degenerative changes wit h prominent anterior mid to lower thoracic spine osteophytes. No acute fractures are visualized. No d estructive lesions are evident on conventional radiographic imaging IMPRESSION: 1. No fractures identified 2. Degenerative change ACT 112: Negative or not required by law. Electronically signed by: Kiko Veloz M.D. 10/14/2020 11:45 AM
--- NOTE | 2020-10-14 13:34 | Hospitalist Progress Note ---
Date of Service October 14, 2020 Assessment & Plan (1) Melena: Melena, weight loss, persistent diarrhea and described functional dyspepsia Mesenteric artery/celiac artery stenosis Dyspepsia S/P lanned push enteroscopy endoscopy with Dr. Méndez from GI (10/11) Appreciate gastroenterology input. Patient continues to experience epigastric/right upper quadrant discomfort. Appreciate vascular surgery input. No indication for surgical intervention at this time. Patient to follow-up with vascular surgery as an outpatient. No further episodes of melena. Hemoglobin remains stable. Found to have single gastric polyp on enteroscopy. H. pylori is pending. c/W PPI for dyspepsia. Famotidine and simethicone prn -seems to be helping with symptoms. TSH is WNL. Cortisol is 16.56. Celiac sprue also ordered TTG is pending and IgA WNL (2) Functional dyspepsia: s/p EGD on 10/11, would recommend screening for H pylori. (3) UTI (urinary tract infection): Cont. Rocephin for E. coli UTI. (4) Hypertension: Continue amlodipine, hydralazine. Initially held her diuretic out of concern for active GI bleed, however, she appears stable. SBP better now. (5) Peripheral arterial disease: Medically managed with ASA and statin. (6) Chronic obstructive pulmonary disease: Stable, continue albuterol inhaler PRN, no evidence of exacerbation. (7) Chronic kidney disease, stage 4 (severe): Cr at baseline ~ 2.7 Avoid nephrotoxic agents when able Monitor with BMP (8) Tobacco use disorder: Contemplation phase, Nicoderm. Smoking cessation strongly advised. (9) DVT prophylaxis: DVT Ppx: SCDs Code status: FULL Dispo-to home when medically stable. Admission and Anticipated Discharge Date Admission Date: October 10, 2020 Subjective Continues to experience epigastric/right upper quadrant pain. Denies feeling nauseous. Denies any chest pain or shortness of breath. Have not had any recent bowel movement yet Review of Systems Review of Systems: All systems reviewed & are unremarkable except as noted in HPI & below Physical Exam Physical Exam: General: A&Ox3. HENT: NCAT, MMM, EOMI Eyes: PERRLA Neck: Supple, normal range of motion CVS: normal rate and rhythm Resp: b/l good breath sounds Abdomen: Soft, epigasrric tenderness appreciated Extremities: No c/c/e Neuro: face symmetric, strength grossly equal, no focal deficit Skin: warm and dry, no rashes/lesions/errythema MSK: normal ROM, no joint swelling/erythema Results & Data Results & Data ([facility]) Vital Signs (Past 12 Hours) Vital Signs Temp Pulse Resp BP Pulse Ox 10/14/20 07:09 36.7 C 53 L 20 126/73 93 10/14/20 03:30 36.8 C 53 L 20 128/69 96 (1) Hypertension Hypertension type: unspecified Qualified Code(s): I10 - Essential (primary) hypertension
--- NOTE | 2020-10-14 15:08 | Progress Notes ---
DATE: 10/14/2020 Addendum: This is addition to the progress note by Kathi Bland from today on the patient. Her a.m. cortisol came back normal. Her tissue transglutaminase is pending. Thoracic spine films show some osteophytes in the thoracic spine, but no scoliosis. She continues to have right upper quadrant pain. She has had no bowel movements for a few days now and her hemoglobin and hematocrit have remained stable, indicating no ongoing GI bleeding. I suspect that the pain that she is experiencing may be musculoskeletal or neuropathic in nature. Vascular surgery did not believe that there was significant enough stenosis of her celiac and superior mesenteric artery to create the symptoms that she is experiencing and I tend to agree with that. At this point, I do not believe there is any further GI input needed. We will sign off unless something changes.
[2020-10-14] MEDS: cefTRIAXone SODIUM 2,000 MG in DEXTROSE 5% 50 ML IV SCH (17:23)
[2020-10-14] MEDS: ATORVASTATIN 40 MG TAB PO SCH (20:10)
[2020-10-14] MEDS: LIDOCAINE 5% 1 PATCH TD SCH (20:11)
[2020-10-15] MEDS: ACETAMINOPHEN 325 MG TAB PO PRN (01:49)
[2020-10-15] MEDS: LIDOCAINE 5% 1 PATCH TD SCH (08:12)
[2020-10-15] MEDS: amLODIPine BESYLATE 5 MG TAB PO SCH (08:12)
[2020-10-15] MEDS: CALCIUM 600MG + VIT D 400 IU TAB PO SCH (08:13)
[2020-10-15] MEDS: hydroCHLOROthiazide 25 MG TAB PO SCH (08:13)
[2020-10-15] MEDS: hydrALAZINE TAB 50 MG TAB PO SCH (08:13)
[2020-10-15] MEDS: PANTOprazole 40 MG TAB PO SCH (08:13)
[2020-10-15] MEDS: ASPIRIN 81 MG ECTAB PO SCH (08:13)
[2020-10-15] MEDS: NICOTINE 21 MG/24 HR TDSY TD SCH (08:14)
[2020-10-15] MEDS: carvediloL 3.125 MG TAB PO SCH (08:17)
--- NOTE | 2020-10-15 13:32 | Discharge Summary ---
Date of Service October 15, 2020 Admission HPI Per Admitting Provider This is a 75yo F with a PMH of HTN, CKD IV, CAD, PAD, COPD, tobacco use disorder and other medical problems listed below who presents with worsening abdominal pain and episode of melena at home yesterday. Patient endorses constant burning pain in epigastric area wrapping around R side under ribs for the past month. Started to have sharp pain in lower abdomen after eating over the past few weeks. Yesterday had large black bowel movement followed by episode of diarrhea. Lower abdominal pain worsened since yesterday and came to ED for further evaluation. Denies any nausea or vomiting. Takes baby aspirin daily for history of CAD and PAD. Does not use NSAIDs with history of CKD. Smokes 1 ppd. History of IV iron infusions but not for the past 3 months, per patient. Denies any fever, chills, lightheadedness, chest pain, SOB, dysuria, diarrhea or constipation. Allergies (1) Melena: (2) Abdominal pain: This is a 75yo F with a PMH of HTN, CKD IV, CAD, PAD, COPD, tobacco use disorder and other medical problems listed below who presents with worsening abdominal pain and episode of melena at home yesterday. Post prandial abdominal pain in epigastrium, 1 episode of melena yesterday Hgb 11.4 (baseline) No leukocytosis. Lipase wnl. AST/ALT and tbili wnl, ALT 178, troponin wnl Smokes 1 ppd, takes daily baby aspirin for history of CAD/PAD but denies other NSAID use CT abd/pelvis wo contrast without acute infectious or inflammatory findings in the abdomen or pelvis ED physician discussed with Dr. Howe of [facility] GI-recommended admission, will see tomorrow Continue PPI bolus and drip Repeat H&H at 2100 Gentle IV fluids Keep NPO for now (3) UTI (urinary tract infection): Abnormal UA, complaints of lower abdominal/suprapubic pain Empiric Rocephin Follow urine culture (4) Hypertension: Continue amlodipine, hydralazine. Hold hctz for now (5) Peripheral arterial disease: Continue aspirin, statin Consider holding aspirin if H&H significantly drops but currently at baseline (6) Hyperlipidemia: Continue statin (7) Chronic obstructive pulmonary disease: Stable, continue albuterol inhaler PRN (8) Chronic kidney disease, stage 4 (severe): Cr at baseline ~ 2.7 Avoid nephrotoxic agents when able Monitor with BMP (9) Tobacco use disorder: Currently smoking 1 ppd Not interested in cessation Nicotine patch ordered Admission Exam Per Admitting Provider General Appearance: WD/WN, vitals as above, NAD, sitting up in bed, pleasant, conversing easily Head: normocephalic, atraumatic Eyes: normal inspection, PERRL, conjunctivae normal, anicteric sclerae ENT: external ear and nose normal, oropharynx normal Neck: normal visual inspection, trachea midline, no thyromegaly Respiratory: normal respiratory effort, lungs clear to auscultation, no wheeze, rales, rhonchi. No accessory muscle use Cardiovascular: regular rate, rhythm, systolic murmur, normal peripheral pulses , no BLE edema. Vessels: no JVD Chest: normal inspection of chest Abdomen/GI: normal bowel sounds, soft, TTP in epigastrium and RUQ, also with bilateral suprapubic pain, no hepatosplenomegaly Extremities/Musculoskeletal: no cyanosis or clubbing, extremities motor strength 5/5 Neurologic: PERRL, EOMI, accommodation nl, no face palsy, no dysarthria, CN's II-XI intact bilaterally and moves all extremities Psychiatric: A+Ox3, euthymic affect Skin: no rashes, normal color, warm/dry Principal Diagnosis Right upper quadrant abdominal Discharge Exam General: A&Ox3. HENT: NCAT, MMM, EOMI Eyes: PERRLA Neck: Supple, normal range of motion CVS: normal rate and rhythm Resp: b/l good breath sounds Abdomen: Soft, epigasrric/xiphoid tenderness appreciated Extremities: No c/c/e Neuro: face symmetric, strength grossly equal, no focal deficit Skin: warm and dry, no rashes/lesions/errythema MSK: normal ROM, no joint swelling/erythema Discharge Data Allergies Allergy/AdvReac Type Severity Reaction Status Date / Time Bactrim Allergy Severe ELEVATED Verified 08/15/13 14:34 POTASSIUM, BRADYCARDIC "HEART TRIED TO SHUT DOWN" sulfamethoxazole Allergy Severe ELEVATED Verified 10/10/20 15:12 POTASSIUM, BRADYCARDIC "HEART TRIED TO SHUT DOWN" trimethoprim Allergy Severe ELEVATED Verified 10/10/20 15:12 POTASSIUM, BRADYCARDIC "HEART TRIED TO SHUT DOWN" gabapentin Allergy Intermediate HALLUCINATIONS; Verified 10/10/20 15:12 SCREAMING/YELLING codeine Allergy Mild RASH, Verified 10/10/20 15:12 RAPID HEART BEAT hydromorphone [From Dilaudid] AdvReac Mild Hallucinati Verified 10/10/20 15:12 ng Consultations 10/10/20 16:50 ED Decision to Admit Stat 10/10/20 22:09 Consult Gastroenterology Routine 10/14/20 08:00 Consult Vascular Surgery Routine Procedures Performed Operation Date: 10/11/20 17:00 Actual Procedures p Esophagogastroduodenoscopy - Yaw Méndez Ordered Studies 10/10/20 15:03 CT abd pelvis wo con Stat 10/12/20 15:10 US liver Routine 10/13/20 12:20 MR angio abdomen wo con Routine 10/13/20 18:47 US duplex mesenteric Routine Hospital Course (1) Melena: Melena, weight loss, persistent diarrhea and described functional dyspepsia Mesenteric artery/celiac artery stenosis Dyspepsia S/P lanned push enteroscopy endoscopy with Dr. Méndez from GI (10/11) Patient presented with epigastric pain radiating to the right subcostal region. Patient reports the pain has been going on for the last few months but it is worse over the last few days. Gastroenterology was consulted. Patient underwent enteroscopy without any acute findings. Vascular surgery input was obtained with concern for stenosis of the celiac and superior mesenteric artery. No indication for surgical intervention at this time. Patient will need to follow-up with vascular surgery as an outpatient. No further episodes of melena. Hemoglobin remains stable. Found to have single gastric polyp on enteroscopy. Patient was discharged with Prilosec 40 mg daily. Famotidine and simethicone prn -seems to be helping with symptoms. TSH is WNL. Cortisol is 16.56. Celiac sprue also ordered TTG is pending and IgA WNL It appears that patient pain was most likely neuropathic in nature. She did have epigastric/xiphoid tenderness on exam. Given her previous history, patient has not tolerated gabapentin. Patient was discharged on nortriptyline. Patient requested to have Carafate and Dexilant removed from her medications as she felt better without them. (2) Functional dyspepsia: s/p EGD on 10/11 (3) UTI (urinary tract infection): Complete Rocephin for E. coli UTI. (4) Hypertension: Continue amlodipine, hydralazine. Initially held her diuretic out of concern for active GI bleed, however, she appears stable. SBP better now. (5) Peripheral arterial disease: Medically managed with ASA and statin. (6) Chronic obstructive pulmonary disease: Stable, continue albuterol inhaler PRN, no evidence of exacerbation. (7) Chronic kidney disease, stage 4 (severe): Cr at baseline ~ 2.7 Avoid nephrotoxic agents when able Monitor with BMP (8) Tobacco use disorder: Contemplation phase, Nicoderm. Smoking cessation strongly advised. (9) DVT prophylaxis: DVT Ppx: SCDs Code status: FULL Dispo-to home when medically stable. Total Time Total Time Spent Total Time Spent (In Minutes): 35 Discharge Plan Discharge Items Patient Disposition: Home - Self-Care Reason For Visit: MELENA, ABD. PAIN Discharge Diagnosis: Melena, weight loss, persistent diarrhea and described functional dyspepsia Mesenteric artery/celiac artery stenosis Dyspepsia S/P lanned push enteroscopy endoscopy with Dr. Méndez from GI (10/11) Activity: Resume your previous activity Non-emergency contact: Primary Care Provider Call non-emergency contact if: your symptoms worsen and your pain is not controlled Follow-up/Referrals: Gabbie Hunter PA-C [Primary Care Provider] - (Date & Time 10/18/2020 11:00 AM Provider Gabbie Hunter PA-C Department [facility] ) Diet: Heart Healthy Addtl Attending Provider Instructions: Follow-up with your primary care physician within 1 week. An appointment has been requested. Pending Studies at Discharge: No Stand-Alone Forms: [facility] [employer], Smoking Cessation Medications and DC Order Prescriptions: New pantoprazole 40 mg Tablet,Delayed Release (Dr/Ec) 40 mg PO DAILY Qty: 30 RF: 0 nortriptyline 10 mg capsule 10 mg PO HS Qty: 30 RF: 0 Continued atorvastatin 40 mg Tablet 40 mg PO QPM RF: 0 Calcium 600 + D(3) 600 mg calcium- 200 unit Capsule 1 cap PO QAM RF: 0 aspirin 81 mg Tablet,Delayed Release (Dr/Ec) 81 mg PO QAM RF: 0 hydrochlorothiazide 25 mg Tablet 25 mg PO QAM RF: 0 albuterol sulfate 5 mg/mL Solution For Nebulization 2.5 mg INHALATION Q4 PRN (Reason: Shortness Of Breath) RF: 0 loratadine 10 mg Tablet 10 mg PO QAM PRN (Reason: Allergy Symptoms) RF: 0 hydralazine 100 mg tablet 100 mg PO BID RF: 0 amlodipine 10 mg tablet 10 mg PO DAILY RF: 0 carvedilol 3.125 mg tablet 3.125 mg PO BID RF: 0 Discontinued sucralfate 1 gram Tablet 1 g PO BID RF: 0 Dexilant 30 mg capsule,biphase delayed releas 30 mg PO DAILY RF: 0 Discharge Orders: Discharge Order (Routine); Ordered 10/15/20 Ordered By: Karoline Car Admission Data Admit Date/Time: 10/10/20 17:03 Attending Provider: Karoline Car Admit Provider: Félix Luz Primary Care Provider: Gabbie Hunter Other Providers: Félix Luz ; Edward Howe ; Savannah Gambino ; Mark Love Other Interventions: Discharge Summary Assessment (RN) Last Done: 10/11/20 16:30
== END 2020-10-15 15:11 | disposition home or self-care (01) | DRG 378 ==
LOC: ED 13:28 → SUATTDRO 17:03 → 2W 17:03

== ENCOUNTER 2020-12-10 05:41 | Inpatient (IN) ==
--- NOTE | 2020-12-05 10:33 | Anesthesiology Consultation ---
Date of Service December 05, 2020 Assessment & Plan (1) Encounter for pre-operative examination: Chart Review Chart Review: Acceptable Risk for Surgery (pending preop Covid testing results and DOS labs ) and Patient NOT seen in Pre Admission Testing -Due to previous anemia and type of procedure- will order repeat CBC with diff and T&S for AM of surgery. Will also order PRP for AM of surgery secondary to CKD IV. Per nursing assessment 12/04/2020, patient denies any recent travel. No known Covid infection in the past 90 days. Patient is not vaccinated for Covid. No known Covid positive contacts or Covid related symptoms. Preop Covid testing 12/06/20= will await results History Surgery Operation Date: 12/10/20 08:00 Proposed Procedures p Left Carotid Endarterectomy - Mark Love MD Height/Weight Height: 5 ft 5.75 in Weight: 97.522 kg Allergies Allergy/AdvReac Type Severity Reaction Status Date / Time Bactrim Allergy Severe ELEVATED Verified 08/15/13 14:34 POTASSIUM, BRADYCARDIC "HEART TRIED TO SHUT DOWN" sulfamethoxazole Allergy Severe ELEVATED Verified 12/04/20 14:50 POTASSIUM, BRADYCARDIC "HEART TRIED TO SHUT DOWN" trimethoprim Allergy Severe ELEVATED Verified 12/04/20 14:50 POTASSIUM, BRADYCARDIC "HEART TRIED TO SHUT DOWN" gabapentin Allergy Intermediate HALLUCINATIONS; Verified 12/04/20 14:50 SCREAMING/YELLING codeine Allergy Mild RASH, Verified 12/04/20 14:50 RAPID HEART BEAT hydromorphone [From Dilaudid] AdvReac Mild Hallucinati Verified 12/04/20 14:50 ng Medications Home Medications Medication Instructions Recorded Confirmed Last Taken albuterol sulfate 5 mg/mL(0.5 %) 2.5 mg INHALATION Q4 PRN 09/16/18 12/04/20 11/22/18 solution for nebulization aspirin 81 mg tablet,delayed 81 mg PO QAM 09/16/18 12/04/20 05/26/19 release atorvastatin 40 mg tablet 40 mg PO QPM 09/16/18 12/04/20 06/15/19 calcium carbonate-vitamin D3 600 1 cap PO QAM 09/16/18 12/04/20 06/15/19 mg calcium-200 unit capsule (Calcium 600 + D(3)) hydrochlorothiazide 25 mg tablet 25 mg PO QAM 09/16/18 12/04/20 06/15/19 loratadine 10 mg tablet 10 mg PO QAM PRN 09/16/18 12/04/20 05/26/19 hydralazine 100 mg tablet 100 mg PO BID 04/19/19 12/04/20 06/16/19 amlodipine 10 mg tablet 10 mg PO QAM 10/10/20 12/04/20 Unknown carvedilol 3.125 mg tablet 3.125 mg PO BID 10/10/20 12/04/20 Unknown nortriptyline 10 mg capsule 10 mg PO HS #30 cap 10/15/20 12/04/20 Unknown Past Medical History Medical History Anemia Cardiac murmur "since I was born and never given me trouble" Carotid stenosis, left Chronic back pain Chronic kidney disease, stage 4 (severe) Chronic obstructive pulmonary disease inhaler/nebulizer prn GERD (gastroesophageal reflux disease) Gout hx Hyperlipidemia Hypertension Mesenteric artery stenosis Peripheral arterial disease Renal artery stenosis Past Family History Family History Mother Family history of diabetes mellitus Brother Family history of diabetes mellitus Sister Family history of diabetes mellitus Other No family history of adverse response to anesthesia Past Surgical History Surgical History History of bilateral cataract extraction History of carpal tunnel release of both wrists History of cholecystectomy History of colonoscopy with polypectomy History of esophagogastroduodenoscopy (EGD) History of laminectomy History of repair of right rotator cuff History of tooth extraction all teeth removed Social History Smoking Status: Current every day smoker tobacco type: cigarettes Smoking cigarettes per day: 1- 1 1/2 pk Do You Dip or Chew Tobacco: No Hx Alcohol Use: Yes Alcohol type: wine alcohol intake frequency: holidays/special occasions only Hx Substance Use: No substance use type: does not use Lab Results Anesthesia Preop Results Results Anesthesia Widget: WBC 7.45 K/uL (4.8-10.8) 11/07/20 Hgb 8.9 g/dL (12.0-16.0) L 11/07/20 Hct 27.2 % (37-47) L 11/07/20 Plt 226 K/uL (130-400) 11/07/20 Na 136 mmol/L (136-145) 11/07/20 K 4.7 mmol/L (3.5-5.1) 11/07/20 Cl 106 mmol/L (98-107) 11/07/20 CO2 22 mmol/L (21-32) 11/07/20 BUN 50 mg/dl (7-18) H 11/07/20 Creat 2.81 mg/dl (0.6-1.2) H 11/07/20 Glucose Level 86 mg/dl (70-99) 11/07/20 PT 9.9 Seconds (9.0-12.0) 10/10/20 INR 1.0 (0.9-1.1) 10/10/20 TSH 3.380 uIu/ml (0.300-4.500) 10/13/20 Blood Type O Positive 10/10/20 Antibody Screen NEGATIVE 10/10/20 Lab Comments: Anemia chronic- mildly decreased Hgb than previous (Hgb usually in 9-11 range) Testing Electrocardiogram Sinus rhythm with first-degree AV block at 66 bpm. Otherwise normal EKG per cardio. Echocardiogram Date: 08/25/17 EF: 74% LV Function: normal RWMA: + none Other Findings: no LVH Normal cardiac chamber sizes. Mild aortic valve sclerosis is presentAV functions normally. Mitral valve anatomy is normaltrace MR. Tricuspid valve anatomy is normalno significant TR. Other Testing Neck MRA 11/28/2020 = 90% stenosis approximately in the proximal aspect of the left internal carotid artery. No significant stenosis or occlusion is seen within bilateral vertebral arteries and right carotid artery. Mesenteric ultrasound 10/13/2020 = Hemodynamically significant stenosis involving the proximal celiac and superior mesenteric arteries. No evidence for arterial occlusion. Abdomen MRA 10/13/2020 = focal stenosis of approximately 80% at the origin of the celiac artery. Also focal stenosis of approximately 70% at the origin of the superior mesenteric artery. Focal areas of high-grade stenosis within the bilateral proximal renal arteries measuring approximately 80% on the left and 90% on the right. Distal superior mesenteric artery appears patent. Common hepatic artery is likely patent.
--- NOTE | 2020-12-09 14:15 | History & Physical Report ---
Date of Service December 09, 2020 History of Present Illness Primary Care Provider: Gabbie Hunter PA-C Name: FELI JAUREGUI Patient Number: [id number] : 1945 Date of Service: 12/04/2020 Chief Complaint: Follow up for Carotid Artery Stenosis, Dialysis Fistula Placement HPI: 75 year old male with previous history of Carotid Artery stenosis, as well as Renal Artery stenosis who presents to Vascular Surgery clinic at [facility]. We last saw her in October to establish care, as well as evaluate her for carotid artery stenosis and dialysis access placement (Not currently on dialysis, but impending future need). She reports no change clinically at this time. She denies stroke symptoms, focal weakness, facial drooping, or numbness. She notes that she still experiences bilateral lower extremity pain sometimes (at rest) that starts at her calf and travels into her buttocks bilaterally. She did obtain an MRA that shows a 90% stenosis at the LEFT proximal ICA, in addition, her vein mapping was performed that shows that she has a left cephalic vein that may be suitable for dialysis access, but that her right arm veins are small caliber. She otherwise denies nausea, vomiting, fevers, chills, SOB, or chest pain. Current Home Meds: (Last Updated 12/04 07:50) amLODIPine (amLODIPine 10 mg oral tablet) 10 mg PO Daily atorvastatin (atorvastatin 40 mg oral tablet) 40 mg PO Daily calcium-vitamin D (Calcium 600+D) 1 tab PO Daily carvedilol (Coreg 3.125 mg oral tablet) 3.125 mg PO bid diclofenac topical (Voltaren 1% topical gel) 1 appl topical qid not to exceed 16 grams/day/single joint of lower extremities furosemide (furosemide 20 mg oral tablet) 20 mg PO Daily hydrALAZINE (hydrALAZINE 100 mg oral tablet) TAKE 1 TABLET BY MOUTH ONCE A DAY hydroCHLOROthiazide (hydroCHLOROthiazide 50 mg oral tablet) 50 mg PO bid loratadine (loratadine 10 mg oral tablet) 10 mg PO Daily PRN: as needed for allergy symptoms multivitamin 1 tab PO Daily nitroglycerin (nitroglycerin 0.4 mg sublingual tablet) 1 TAB EVERY 5MIN NOT TO EXCEED 3 DOSES/15 MIN-SEEK MEDICAL ATTENTION, NEEDED FOR CHEST PAIN Allergies and Sensitivities: morphine(heart arrhythmia) Dilaudid(hallucinations) Bactrim(elevated K) Pollen Grass Percocet 5/325(Hives) Percocet 5/325(Rash) codeine(Rash) Past Medical History: Problems: Mesenteric artery stenosis Renal artery stenosis Edema leg Diastolic dysfunction Mild emphysema History of anemia due to chronic kidney disease Dizzy spells Bradycardia LESLIE (acute kidney injury) Elevated TSH Sinus bradycardia H/O hyperkalemia Chronic diastolic heart failure Abdominal pain Chronic kidney disease (CKD) Weight disorder Neuropathy, peripheral LBP - Low back pain Tobacco abuse Hypertension Heart murmur Migraine Depression Spinal stenosis CKD (chronic kidney disease) stage 3, GFR 30-59 ml/min Herniated disc Pinched nerve Peripheral venous insufficiency Carotid artery stenosis Benign hypertension Chronic kidney disease stage 3 Smoker OBJECTIVE Vitals: Last Updated 12/04/20 07:54 Date Temp BP Location Pulse RR SpO2 Pain 12/04/20 130/50 Right Arm 12/04/20 138/52 Left Arm 52 20 98 3 11/19/20 140/54 Left Arm Vital Signs are the last 3 documented. Orthostatic: Last Updated 08/26/10 18:34 Date Lying Pulse Sitting Pulse Standing Pulse 08/26/10 120/47 76 110/50 81 Orthostatic blood pressures are the last 3 documented. Height and Weight: Last Updated 12/04/20 07:52 Date BMI Wt(kg) Wt(lb) Method Ht(cm) (ft-in) Method 12/04/20 34.32 96.3 212 Standing Scale 167.5 5-6 11/19/20 97.3 214 Standing Scale 09/18/20 98.1 216 Standing Scale Heights and Weights are the last 3 documented. Physical Exam General:NCAT, NAD HEENT:EOMI, PERRL, Sclera Anicteric, left sided carotid bruit present on auscultation. Heart:Regular Rate and Rhythm. Holosystolic blowing murmur present. Pulses palpable in all distal extremities Chest:CTAB Normal respiratory effort, Symmetrical expansion bilaterally Abdomen:Soft, Nontender, Nondistended Extremity:WWP, Moving all extremities without assistance Neuro:AAOx3 Skin:No rashes or lesions noted 30 Day Labs: No 30 Day Lab Data. ASSESSMENT: 75 year old female with history of carotid artery stenosis, and renal artery stenosis. She has significant Left sided ICA stenosis just distal to the bifurcation, and will require a carotid endarterectomy. This is a more pressing need at this time than establishment of dialysis access (which we have options for, should she need dialysis emergently). This was discussed in clinic and she was amenable to proceeding forward with CEA prior to establishment of dialysis access. In the meantime, we will protect the left arm, and she has given a band in clinic today to avoid lab sticks/draws. She will be a suitable candidate for creation of a Brachiocephalic fistula at a later date. PLAN: _ 1 ) Risks, Benefits, Alternatives to Left Carotid Endarterectomy discussed in clinic today. Informed consent was obtained and she will be scheduled for operative intervention. 2 ) She was given an arm band for her left arm to protect for future dialysis access creation. She was counselled to avoid needle sticks and lab draws in the left arm. We will plan for a Brachiocephalic fistula in the left arm at a later date. I saw and evaluated the patient. Discussed with the resident and agree with the resident's findings and plan as documented in the resident's note. Signature Line Electronic Signature on File Electronically Reviewed/Signed by: Rod Sanchez MD Author Signature Dt/Tm:12/04/2020 09:09 AM Resident Division of General Surgery Electronically Reviewed/Signed by: Mark Love MD Cosigner Signature Dt/Tm: 12/05/2020 07:40 AM Bilingual Receptionist Mike Mercado [facility] [place], [address] [place] [address] JM Result Type: Vascular Surgery Outpt Note Date of Service: December 04, 2020 08:58 EDT Authorization Status: Final Author or Import Date: MD Sanchez Jason on December 04, 2020 09:09 EDT Verified By: MD Love Eugene J on December 05, 2020 07:40 EDT Encounter info: [id number], [facility] [place] [facility], [place], 12/04/2020 - 12/04/2020 Allergies Allergy/AdvReac Type Severity Reaction Status Date / Time Bactrim Allergy Severe ELEVATED Verified 08/15/13 14:34 POTASSIUM, BRADYCARDIC "HEART TRIED TO SHUT DOWN" sulfamethoxazole Allergy Severe ELEVATED Verified 12/04/20 14:50 POTASSIUM, BRADYCARDIC "HEART TRIED TO SHUT DOWN" trimethoprim Allergy Severe ELEVATED Verified 12/04/20 14:50 POTASSIUM, BRADYCARDIC "HEART TRIED TO SHUT DOWN" gabapentin Allergy Intermediate HALLUCINATIONS; Verified 12/04/20 14:50 SCREAMING/YELLING codeine Allergy Mild RASH, Verified 12/04/20 14:50 RAPID HEART BEAT hydromorphone [From Dilaudid] AdvReac Mild Hallucinati Verified 12/04/20 14:50 ng Home Medications Medication Instructions Recorded Confirmed Type albuterol sulfate 5 mg/mL(0.5 %) 2.5 mg INHALATION Q4 PRN 09/16/18 12/04/20 History solution for nebulization aspirin 81 mg tablet,delayed 81 mg PO QAM 09/16/18 12/04/20 History release atorvastatin 40 mg tablet 40 mg PO QPM 09/16/18 12/04/20 History calcium carbonate-vitamin D3 600 1 cap PO QAM 09/16/18 12/04/20 History mg calcium-200 unit capsule (Calcium 600 + D(3)) hydrochlorothiazide 25 mg tablet 25 mg PO QAM 09/16/18 12/04/20 History loratadine 10 mg tablet 10 mg PO QAM PRN 09/16/18 12/04/20 History hydralazine 100 mg tablet 100 mg PO BID 04/19/19 12/04/20 History amlodipine 10 mg tablet 10 mg PO QAM 10/10/20 12/04/20 History carvedilol 3.125 mg tablet 3.125 mg PO BID 10/10/20 12/04/20 History nortriptyline 10 mg capsule 10 mg PO HS #30 cap 10/15/20 12/04/20 Rx Past Med/Surg History Medical History Anemia Cardiac murmur "since I was born and never given me trouble" Carotid stenosis, left Chronic back pain Chronic kidney disease, stage 4 (severe) Chronic obstructive pulmonary disease inhaler/nebulizer prn GERD (gastroesophageal reflux disease) Gout hx Hyperlipidemia Hypertension Mesenteric artery stenosis Peripheral arterial disease Renal artery stenosis Surgical History History of bilateral cataract extraction History of carpal tunnel release of both wrists History of cholecystectomy History of colonoscopy with polypectomy History of esophagogastroduodenoscopy (EGD) History of laminectomy History of repair of right rotator cuff History of tooth extraction all teeth removed Family History Mother Family history of diabetes mellitus Brother Family history of diabetes mellitus Sister Family history of diabetes mellitus Other No family history of adverse response to anesthesia Social History Smoking Status: Current every day smoker Tobacco Type: Cigarettes Cigarettes Per Day: 1- 1 1/2 pk; Second Hand Exposure: No; Hx Alcohol Use: Yes Alcohol type: wine Hx Substance Use: No Preferred Language: Divehi Communication Ability: Effective Bull Wheel Worker Required: No Beliefs That Will Affect Care: None Current Living Situation: Alone Feels Safe at Home: Yes Assistive Devices: Denture - Upper, Denture - Lower and Glasses
[2020-12-10] MEDS ORDERED: LACTATED RINGER'S 1,000 ML IV SCH ×2 (06:00→12:12)
[2020-12-10] MEDS ORDERED: CEFAZOLIN 2,000 MG/15 ML SYR IV SCH (06:00)
[2020-12-10 06:57] LABS: Calcium 9.3 mg/dl (8.5-10.1); Creatinine Clr Calc Pharmacy 19.1 ml/min; Est GFR (African American) 17.3 ml/min; Est GFR (Non-African American) 14.9 ml/min; Potassium 3.8 mmol/L (3.5-5.1)
[2020-12-10] MEDS ORDERED: PROPOFOL IV EMULSION 10 MG/ML 20 ML VIAL IV ONE ×2 (07:12→10:21)
[2020-12-10] MEDS ORDERED: fentaNYL citrate 100 MCG/2 ML VIAL ONE ×3 (07:12→10:22)
[2020-12-10] MEDS ORDERED: DEXAMETHASONE SOD INJ 4 MG/ML VIAL ONE ×3 (07:12→09:21)
[2020-12-10] MEDS ORDERED: ONDANSETRON INJ 2 MG/ML 2 ML VIAL ONE (07:12)
[2020-12-10] MEDS ORDERED: ROCURONIUM BROMIDE 10 MG/ML 5 ML VIAL IV ONE ×2 (07:12→09:21)
[2020-12-10] MEDS ORDERED: HEPARIN (PORCINE) 1000 UNIT/ML 10 ML (CATH LAB USE ONLY) ONE (07:13)
[2020-12-10] MEDS ORDERED: MIDAZOLAM HCL 1 MG/ML 2ML VIAL ONE (07:13)
[2020-12-10] MEDS ORDERED: BUPIVACAINE/EPINEPHRINE 0.5% MPF 1:200,000 30 ML VIAL ONE (07:13)
[2020-12-10] MEDS ORDERED: THROMBIN FOR SOLN 20000 UNIT KIT ONE (07:14)
[2020-12-10] MEDS ORDERED: GELATIN SPONGE SZ 100 ONE (07:14)
[2020-12-10] MEDS ORDERED: LIDOCAINE/EPINEPHRINE 1% 20 ML VIAL ONE (07:14)
[2020-12-10] MEDS ORDERED: LIDOCAINE 1% LOCAL 20 ML VIAL ONE (07:25)
[2020-12-10] MEDS ORDERED: NEOSTIGMINE METHYLSULFATE 1 MG/ML 10ML VIAL ONE (07:30)
[2020-12-10] MEDS ORDERED: GLYCOPYRROLATE 0.2 MG/ML VIAL ONE ×2 (07:30→09:20)
[2020-12-10] MEDS ORDERED: HEPARIN SOD (PORCINE) 1000 UNIT/ML ONE (07:30)
[2020-12-10] MEDS ORDERED: NITROGLYCERIN/D5W 100 MCG/ML BTL ONE (07:30)
--- NOTE | 2020-12-10 07:31 | History & Physical Bridge Note ---
Date of Service December 10, 2020 History & Physical Bridge Note I have examined the patient, reviewed the History & Physical and in the interval since the performance of the History & Physical I have noted the following changes of clinical significance: no changes noted
[2020-12-10] MEDS ORDERED: ONDANSETRON INJ 2 MG/ML 2 ML VIAL IV PRN (07:46)
[2020-12-10] MEDS ORDERED: LABETALOL HCL IV 5 MG/ML 20ML IV PRN (07:46)
[2020-12-10] MEDS ORDERED: ATROPINE SULFATE 0.1 MG/ML 10ML SYR IV PRN (07:46)
[2020-12-10] MEDS ORDERED: LABETALOL HCL IV 5 MG/ML 20ML IV ONE (10:14)
[2020-12-10] MEDS ORDERED: ePHEDrine sulfate 50 MG/ML AMP ONE (10:16)
[2020-12-10] MEDS ORDERED: ePHEDrine sulfate 50 MG/ML SYR ONE (10:16)
[2020-12-10] MEDS ORDERED: PHENYLEPHRINE HCL 10 MG/ML VIAL ONE (10:16)
--- NOTE | 2020-12-10 10:21 | Operative Report ---
Post Operative Report Pre & Post Diagnosis Operation Date: 12/10/20 08:00 Pre-Op Diagnosis: Left Severe Internal Carotid Artery Stenosis Post-Op Diagnosis: Left Severe Internal Carotid Artery Stenosis I identified the patient and participated in the time-out.: Yes Procedure Operation Date: 12/10/20 08:00 Actual Procedures p Left Carotid Endarterectomy with Bovine Patch Angioplasty(Left) - Mark Love MD Surgeon Mark Love MD Plate Shear Operator Rod Sanchez MD; Chuyita Fitzgerald PA-C Estimated Blood Loss 25 Findings Consistent with Post-Op Diagnosis Specimens L Carotid Plaque Complications none None Description of Procedure The patient was taken to the operating room and placed in supine position. After general anesthesia was accomplished the left-side of the neck was prepped and draped in a sterile manner. The patient was identified and a timeout performed. A longitudinal neck incision was then made coursing along the medial border of the sternocleidomastoid muscle. The incision was taken down through the platysmal layer. The facial vein was identified, ligated, and divided. The common carotid artery was then seen. It was dissected free down to the omohyoid muscle. The dissection was carried upward until the external carotid artery and superior thyroid artery was seen. The superior thyroid artery was slung with a 2-0 silk suture. The external carotid was slung with a red rubber vessel loop. Next the dissection was carried up along the internal carotid artery. This was carried upward to beyond the area of narrowing. The hypoglossal nerve was seen and preserved. The patient was heparinized. After adequate heparinization was accomplished, the internal, external, and common carotid arteries were clamped. A longitudinal arteriotomy was started on the common carotid artery and extended upward along the internal carotid artery to a point beyond the area of narrowing. There was calcified plaque of the internal carotid artery origin causing approximately 85-90% narrowing. A external sundt shunt was then placed in the internal, followed by the common carotid artery and held in place with Tonny clamps. There was good back bleeding seen from the internal carotid artery. The endarterectomy was then started in the appropriate plane on the common carotid artery. This was carried upward and the external carotid was everted and endarterectomized. The endarterectomy was then carried up along the internal carotid artery till a nice feathering breakoff point was accomplished beyond the end of the plaque. The endarterectomy was then carried down further on the common carotid artery. At end of the arteriotomy, the plaque was then transected. Under loop magnification, all loose debris and flaps were removed. There is no distal flap seen at the end of the endarterectomy site. The arteriotomy then closed using an Bovine Pericardial patch and a running 6-0 Prolene suture. This was done in the usual vascular fashion. Prior to completing the closure, the sundt shunt was removed and the internal and common carotid arteries were reclamped. Backbleeding and forward bleeding was allowed to occur. The flow surface was irrigated with heparinized saline. The final few sutures were then placed and securely tied. Clamps were then removed off the external and common carotid arteries. The clamp was then removed the internal carotid artery. Good distal flow was seen. Adequate hemostasis was seen of the patch. The wound was inspected and adequate hemostasis was obtained. The wound was irrigated with antibiotic solution. It was then closed with a running 3-0 Vicryl suture for the platysmal layer and a 4-0 subcuticular Vicryl suture for the skin edges. Dermabond was used for dressing. The patient left the operating room in satisfactory condition and tolerated the procedure well. Dr. Love was present and scrubbed for the entire procedure. Margarita Fitzgerald Pac assisted and was necessary for prepping, draping, retraction, wound closure defects, subQ and skin closure and was necessary for the case. I attest to the content of the Intraoperative Record and any orders documented therein. Any exceptions are noted below.
--- NOTE | 2020-12-10 10:27 | Post Operative Brief Note ---
Immediate Post Op Note v1 Date of Surgery December 10, 2020 Pre & Post Diagnosis Operation Date: 12/10/20 08:00 Pre-Op Diagnosis: Left Severe Internal Carotid Artery Stenosis Post-Op Diagnosis: Left Severe Internal Carotid Artery Stenosis I identified the patient and participated in the time-out.: Yes Procedure Operation Date: 12/10/20 08:00 Actual Procedures p Left Carotid Endarterectomy with Bovine Patch(Left) - Mark Love MD Surgeon Mark Love MD Cable Splicer Apprentice Rod Sanchez MD; Chuyita Fitzgerald PA-C Estimated Blood Loss 25 Findings Consistent with Post-Op Diagnosis Anesthesia Type General Complications none Disposition Accompanied Patient To Recovery: No Disposition: Recovery Room
[2020-12-10] MEDS: fentaNYL citrate 100 MCG/2 ML VIAL IV PRN ×2 (11:29→11:34)
[2020-12-10] MEDS ORDERED: ALBUTEROL 0.083% NEBU SOLN 3 ML VIAL NEB PRN (12:12)
[2020-12-10] MEDS ORDERED: LORATADINE 10 MG TAB PO PRN (12:12)
[2020-12-10] MEDS ORDERED: ACETAMINOPHEN 1,000 MG/100 ML VIAL IV PRN (12:12)
--- NOTE | 2020-12-10 12:28 | Anesthesiology Progress Note ---
Date of Service December 10, 2020 Anesthesia Post Procedure Vital Signs Vital Signs: Temp Pulse Pulse Resp BP BP Pulse Ox 12/10/20 11:50 36.4 C L 55 L 17 156/66 H 158/58 H 96 12/10/20 11:40 53 L 12 153/52 H 159/41 H 98 12/10/20 11:30 54 L 14 157/58 H 98 12/10/20 11:20 54 L 16 159/56 H 100 12/10/20 11:10 54 L 16 153/63 H 99 12/10/20 11:00 53 L 15 156/56 H 97 12/10/20 10:50 36.2 C L 52 L 12 141/56 H 98 12/10/20 06:32 37 C 56 L 20 176/61 H 20 L Pain Intensity Left Neck: Pain Intensity: 4 Transfer of Care Handoff Completed per policy Notes Mental Status: alert / awake / arousable Patient Amnestic to Procedure: Yes Nausea / Vomiting: adequately controlled Pain: adequately controlled Airway Patency, RR, SpO2: stable & adequate BP & HR: stable & adequate Hydration State: stable & adequate Anesthetic Complications: no major complications apparent
--- NOTE | 2020-12-10 15:10 | Critical Care Consultation ---
Date of Consultation December 10, 2020 Assessment & Plan (1) Postoperative carotid endarterectomy surveillance, encounter for: 75-year-old pleasant female status post carotid endarterectomy presenting to the ICU for postop monitoring. Patient is currently stable. Arterial line in place. Blood pressure parameters and pain control per vascular surgery team. Nicotine patch ordered to help prevent withdrawal. Smoking cessation encouraged. Stable on room air and 100% SPO2. Antiplatelet therapy as per vascular surgery team. She is on aspirin. Thank you for the consultation. ICU team will continue to follow while she remains in the intensive care unit. (2) Tobacco use disorder: (3) Hypertension: History of Present Illness Reason for Consultation: Post left carotid endarterectomy ICU monitoring Attending Physician: Mark Love MD History of Present Illness 75-year-old male with a history of hypertension, CKD stage 4, COPD, GERD, and carotid artery stenosis and renal artery stenosis who was admitted to the hospital today post left carotid endarterectomy. She has some mild neck pain on the left surgery. She complains of a mild headache. She does have a mild dry mouth. Denies any chest pain. Allergies Allergy/AdvReac Type Severity Reaction Status Date / Time Bactrim Allergy Severe ELEVATED Verified 08/15/13 14:34 POTASSIUM, BRADYCARDIC "HEART TRIED TO SHUT DOWN" sulfamethoxazole Allergy Severe ELEVATED Verified 12/10/20 06:22 POTASSIUM, BRADYCARDIC "HEART TRIED TO SHUT DOWN" trimethoprim Allergy Severe ELEVATED Verified 12/10/20 06:22 POTASSIUM, BRADYCARDIC "HEART TRIED TO SHUT DOWN" gabapentin Allergy Intermediate HALLUCINATIONS; Verified 12/10/20 06:22 SCREAMING/YELLING codeine Allergy Mild RASH, Verified 12/10/20 06:22 RAPID HEART BEAT hydromorphone [From Dilaudid] AdvReac Mild Hallucinati Verified 12/10/20 06:22 ng acetaminophen [From Percocet] AdvReac Unknown Verified 12/10/20 06:22 morphine AdvReac Hallucinati Verified 12/10/20 06:22 ng oxycodone [From Percocet] AdvReac Unknown Verified 12/10/20 06:22 Home Medications Medication Instructions Recorded Confirmed Type albuterol sulfate 5 mg/mL(0.5 %) 2.5 mg INHALATION Q4 PRN 09/16/18 12/10/20 History solution for nebulization aspirin 81 mg tablet,delayed 81 mg PO QAM 09/16/18 12/10/20 History release atorvastatin 40 mg tablet 40 mg PO QPM 09/16/18 12/10/20 History calcium carbonate-vitamin D3 600 1 cap PO QAM 09/16/18 12/10/20 History mg calcium-200 unit capsule (Calcium 600 + D(3)) hydrochlorothiazide 25 mg tablet 25 mg PO QAM 09/16/18 12/10/20 History loratadine 10 mg tablet 10 mg PO QAM PRN 09/16/18 12/10/20 History hydralazine 100 mg tablet 100 mg PO BID 04/19/19 12/10/20 History amlodipine 10 mg tablet 10 mg PO QAM 10/10/20 12/10/20 History carvedilol 3.125 mg tablet 3.125 mg PO BID 10/10/20 12/10/20 History ascorbic acid (vitamin C) 500 mg 500 mg PO DAILY 12/10/20 12/10/20 History tablet (Vitamin C) multivitamin 1 tab PO DAILY 12/10/20 12/10/20 History nortriptyline 10 mg capsule 10 mg PO HS 12/10/20 12/10/20 History (Pamelor) vit B complex with B12 and C 1 tab PO DAILY 12/10/20 12/10/20 History Patient History Medical History (Updated 12/10/20 @ 16:32 by Noah Villavicencio MD) Anemia Cardiac murmur "since I was born and never given me trouble" Carotid stenosis, left Chronic back pain Chronic kidney disease, stage 4 (severe) Chronic obstructive pulmonary disease inhaler/nebulizer prn GERD (gastroesophageal reflux disease) Gout hx Hyperlipidemia Hypertension Mesenteric artery stenosis Peripheral arterial disease Postoperative carotid endarterectomy surveillance, encounter for Renal artery stenosis Surgical History History of bilateral cataract extraction History of carpal tunnel release of both wrists History of cholecystectomy History of colonoscopy with polypectomy History of esophagogastroduodenoscopy (EGD) History of laminectomy History of repair of right rotator cuff History of tooth extraction all teeth removed Family History Mother Family history of diabetes mellitus Brother Family history of diabetes mellitus Sister Family history of diabetes mellitus Other No family history of adverse response to anesthesia Social History Smoking Status: Current every day smoker Tobacco Type: Cigarettes Cigarettes Per Day: 20; Second Hand Exposure: No; Do You Dip or Chew Tobacco: No; Hx Alcohol Use: No Hx Substance Use: No Preferred Language: [place]er Communication Ability: Effective Furnace Clerk Required: No Beliefs That Will Affect Care: None Current Living Situation: Alone Feels Safe at Home: Yes Safety Concerns: Feels Safe At This Time Assistive Devices: None Assistive Devices Comment: doesn't wear dentures Review of Systems Review of Systems: 03/06 point ROS negative unless noted Physical Exam Constitutional: WD/WN, vitals as above Eyes: PERRL, conjunctivae normal, anicteric sclerae ENMT: external ear and nose normal, oropharynx normal Neck: Incision on the left neck appears intact Respiratory: normal respiratory effort, lungs clear to auscultation Cardiovascular: RRR, no murmur, no edema Gastrointestinal (Abdomen): normal bowel sounds, soft, nontender, no hepatosplenomegaly Skin: no rashes, warm and dry Neurologic: PERRL, EOMI, accommodation nl, no face palsy, no dysarthria Psychiatric: A+Ox3, euthymic affect Results & Data Results & Data ([facility]) Vital Signs (Past 12 Hours) Vital Signs Temp Pulse Pulse Pulse Resp BP BP 12/10/20 13:55 56 L 12 169/58 H 12/10/20 13:40 59 L 13 164/55 H 12/10/20 13:25 57 L 14 158/54 H 12/10/20 13:15 97.9 F 12/10/20 13:10 57 L 15 153/52 H 12/10/20 12:55 57 L 13 149/51 H 12/10/20 12:40 58 L 13 142/102 H 12/10/20 12:06 57 L 12 176/59 H 12/10/20 11:50 97.5 F L 55 L 17 156/66 H 12/10/20 11:40 53 L 12 153/52 H 12/10/20 11:30 54 L 14 157/58 H 12/10/20 11:20 54 L 16 159/56 H 12/10/20 11:10 54 L 16 153/63 H 12/10/20 11:00 53 L 15 156/56 H 12/10/20 10:50 97.2 F L 52 L 12 141/56 H 12/10/20 06:32 98.6 F 56 L 20 176/61 H BP Pulse Ox 12/10/20 13:55 100 12/10/20 13:40 97 12/10/20 13:25 98 12/10/20 13:15 12/10/20 13:10 99 12/10/20 12:55 94 12/10/20 12:40 99 12/10/20 12:06 100 12/10/20 11:50 158/58 H 96 12/10/20 11:40 159/41 H 98 12/10/20 11:30 98 12/10/20 11:20 100 12/10/20 11:10 99 12/10/20 11:00 97 12/10/20 10:50 98 12/10/20 06:32 20 L Vital signs, labs and imaging personally reviewed Coding Level of Care Code 56099 Inpt Consult Level 3 Diagnoses Postoperative carotid endarterectomy surveillance, encounter for Z48.812 Tobacco use disorder F17.200 Hypertension I10 Hypertension type: unspecified (1) Hypertension Hypertension type: unspecified Qualified Code(s): I10 - Essential (primary) hypertension
[2020-12-10] MEDS: hydrALAZINE TAB 50 MG TAB PO SCH ×3 (15:56→19:45)
[2020-12-10] MEDS: ceFAZolin 2000MG 2,000 MG/15 ML SYR IV SCH (15:56)
[2020-12-10] MEDS ORDERED: COUGH DROP (SUGAR FREE) LOZ 24 LOZ/1 BOX BUCCAL ONE (16:40)
[2020-12-10] MEDS: NICOTINE 14 MG/24 HR PATCH TD SCH (17:03)
[2020-12-10] MEDS ORDERED: hydrALAZINE HCL 20 MG/ML VIAL ONE (17:15)
[2020-12-10] MEDS ORDERED: hydrALAZINE HCL 20 MG/ML VIAL IV STA (17:16)
[2020-12-10] MEDS: carvediloL 3.125 MG TAB PO SCH (19:45)
[2020-12-10] MEDS: NORTRIPTYLINE HCL 10 MG CAP PO SCH ×2 (19:46→21:06)
[2020-12-10] MEDS ORDERED: ATORVASTATIN 40 MG TAB PO SCH (21:00)
[2020-12-10] MEDS ORDERED: amLODIPine BESYLATE 5 MG TAB PO ONE (22:45)
[2020-12-11] MEDS: ceFAZolin 2000MG 2,000 MG/15 ML SYR IV SCH (00:51)
[2020-12-11] MEDS: carvediloL 3.125 MG TAB PO SCH (08:50)
[2020-12-11] MEDS: NICOTINE 14 MG/24 HR PATCH TD SCH (08:51)
[2020-12-11] MEDS ORDERED: hydroCHLOROthiazide 25 MG TAB PO SCH (09:00)
[2020-12-11] MEDS ORDERED: ASCORBIC ACID 500 MG TAB PO SCH ×2 (09:00)
[2020-12-11] MEDS ORDERED: ASPIRIN 81 MG ECTAB PO SCH (09:00)
[2020-12-11] MEDS ORDERED: amLODIPine BESYLATE 5 MG TAB PO SCH (09:00)
[2020-12-11] MEDS ORDERED: VITAMIN B COMPLEX TAB PO SCH (09:00)
[2020-12-11] MEDS ORDERED: ASCORBIC ACID PO SCH (09:00)
[2020-12-11] MEDS ORDERED: NICOTINE 21 MG/24 HR TDSY TD SCH (09:00)
[2020-12-11] MEDS ORDERED: VITAMIN B COMPLEX PO SCH (09:00)
[2020-12-11] MEDS ORDERED: CYANOCOBALAMIN PO SCH (09:00)
[2020-12-11] MEDS ORDERED: CALCIUM 600MG + VIT D 400 IU TAB PO SCH (09:00)
[2020-12-11] MEDS ORDERED: MULTIVITAMIN TAB PO SCH (09:00)
[2020-12-11] MEDS: hydrALAZINE TAB 50 MG TAB PO SCH (09:10)
--- NOTE | 2020-12-11 12:20 | Surgery Progress Note ---
Date of Service December 11, 2020 Assessment & Plan (1) Postoperative carotid endarterectomy surveillance, encounter for: Plan: Doing well post op. Will D/C home today. Admission and Anticipated Discharge Date Admission Date: December 10, 2020 Subjective Patient without complaints. No problems with swallowing or speech. No arm or leg weakness Physical Exam Constitutional: WD/WN, vitals as above Neck: trachea midline Respiratory: normal respiratory effort; no respiratory distress Cardiovascular: Rate/Rhythm: regular rate and regular rhythm Musculoskeletal: no cyanosis or clubbing, extremities motor strength 5/5 Skin: + incision (dry and clean without swelling) Neurologic: CN's II-XI intact bilaterally and moves all extremities Psychiatric: Orientation: alert and oriented x 3 Results & Data ([facility]) Vital Signs (Past 12 Hours) Vital Signs Temp Pulse Resp BP Pulse Ox 12/11/20 10:55 60 16 158/64 H 93 12/11/20 10:16 61 15 153/49 H 98 12/11/20 08:55 60 14 153/57 H 97 12/11/20 08:00 61 149/50 H 12/11/20 07:55 59 L 15 150/54 H 98 12/11/20 06:55 66 13 149/61 H 98 12/11/20 05:56 69 22 162/60 H 96 12/11/20 04:55 36.6 C 61 13 149/50 H 97 12/11/20 04:00 63 147/53 H 12/11/20 03:55 37 C 65 13 157/57 H 96 12/11/20 02:02 68 18 157/63 H 95 12/11/20 01:40 63 18 147/53 H 96 12/11/20 01:10 60 13 148/59 H 95 12/11/20 00:40 64 18 150/59 H 99
--- NOTE | 2020-12-11 12:40 | Critical Care Progress Note ---
Date of Service December 11, 2020 Assessment & Plan (1) Postoperative carotid endarterectomy surveillance, encounter for: Plan: 75-year-old pleasant female status post carotid endarterectomy presenting to the ICU for postop monitoring. Patient is currently stable. Arterial line in place. Blood pressure parameters and pain control per vascular surgery team. Nicotine patch ordered to help prevent withdrawal. Smoking cessation encouraged. Stable on room air.. Ant iplatelet therapy as per vascular surgery team. She is on aspirin. Anticipate discharge home later today. Thank you for the consultation. ICU team will continue to follow while she remains in the intensive care unit. (2) Tobacco use disorder: (3) Hypertension: Admission and Anticipated Discharge Date Admission Date: December 10, 2020 Subjective No significant events overnight. Sitting up in a chair. Physical Exam Constitutional: WD/WN, vitals as above Eyes: PERRL, conjunctivae normal, anicteric sclerae ENMT: external ear and nose normal, oropharynx normal Respiratory: normal respiratory effort, lungs clear to auscultation Cardiovascular: RRR, no murmur, no edema Gastrointestinal (Abdomen): normal bowel sounds, soft, nontender, no hepatosplenomegaly Skin: no rashes, warm and dry Neurologic: PERRL, EOMI, accommodation nl, no face palsy, no dysarthria Psychiatric: A+Ox3, euthymic affect Results & Data Results & Data ([facility]) Vital Signs (Past 12 Hours) Vital Signs Temp Pulse Resp BP Pulse Ox 12/11/20 10:55 60 16 158/64 H 93 12/11/20 10:16 61 15 153/49 H 98 12/11/20 08:55 60 14 153/57 H 97 12/11/20 08:00 61 149/50 H 12/11/20 07:55 59 L 15 150/54 H 98 12/11/20 06:55 66 13 149/61 H 98 12/11/20 05:56 69 22 162/60 H 96 12/11/20 04:55 97.9 F 61 13 149/50 H 97 12/11/20 04:00 63 147/53 H 12/11/20 03:55 98.6 F 65 13 157/57 H 96 12/11/20 02:02 68 18 157/63 H 95 12/11/20 01:40 63 18 147/53 H 96 12/11/20 01:10 60 13 148/59 H 95 12/11/20 00:40 64 18 150/59 H 99 vital stable. Coding Level of Care Code 55115 Subseq Hosp Care Lvl 1 Diagnoses Postoperative carotid endarterectomy surveillance, encounter for Z48.812 Tobacco use disorder F17.200 Hypertension I10 Hypertension type: unspecified (1) Hypertension Hypertension type: unspecified Qualified Code(s): I10 - Essential (primary) hypertension
--- NOTE | 2020-12-11 13:20 | Discharge Summary ---
Date of Service December 11, 2020 Admission HPI Per Admitting Provider Name: FELI JAUREGUI Patient Number: [id number] : 1945 Date of Service: 12/04/2020 Chief Complaint: Follow up for Carotid Artery Stenosis, Dialysis Fistula Placement HPI: 75 year old male with previous history of Carotid Artery stenosis, as well as Renal Artery stenosis who presents to Vascular Surgery clinic at [facility]. We last saw her in October to establish care, as well as evaluate her for carotid artery stenosis and dialysis access placement (Not currently on dialysis, but impending future need). She reports no change clinically at this time. She denies stroke symptoms, focal weakness, facial drooping, or numbness. She notes that she still experiences bilateral lower extremity pain sometimes (at rest) that starts at her calf and travels into her buttocks bilaterally. She did obtain an MRA that shows a 90% stenosis at the LEFT proximal ICA, in addition, her vein mapping was performed that shows that she has a left cephalic vein that may be suitable for dialysis access, but that her right arm veins are small caliber. She otherwise denies nausea, vomiting, fevers, chills, SOB, or chest pain. Current Home Meds: (Last Updated 12/04 07:50) amLODIPine (amLODIPine 10 mg oral tablet) 10 mg PO Daily atorvastatin (atorvastatin 40 mg oral tablet) 40 mg PO Daily calcium-vitamin D (Calcium 600+D) 1 tab PO Daily carvedilol (Coreg 3.125 mg oral tablet) 3.125 mg PO bid diclofenac topical (Voltaren 1% topical gel) 1 appl topical qid not to exceed 16 grams/day/single joint of lower extremities furosemide (furosemide 20 mg oral tablet) 20 mg PO Daily hydrALAZINE (hydrALAZINE 100 mg oral tablet) TAKE 1 TABLET BY MOUTH ONCE A DAY hydroCHLOROthiazide (hydroCHLOROthiazide 50 mg oral tablet) 50 mg PO bid loratadine (loratadine 10 mg oral tablet) 10 mg PO Daily PRN: as needed for allergy symptoms multivitamin 1 tab PO Daily nitroglycerin (nitroglycerin 0.4 mg sublingual tablet) 1 TAB EVERY 5MIN NOT TO EXCEED 3 DOSES/15 MIN-SEEK MEDICAL ATTENTION, NEEDED FOR CHEST PAIN Allergies and Sensitivities: morphine(heart arrhythmia) Dilaudid(hallucinations) Bactrim(elevated K) Pollen Grass Percocet 5/325(Hives) Percocet 5/325(Rash) codeine(Rash) Past Medical History: Problems: Mesenteric artery stenosis Renal artery stenosis Edema leg Diastolic dysfunction Mild emphysema History of anemia due to chronic kidney disease Dizzy spells Bradycardia LESLIE (acute kidney injury) Elevated TSH Sinus bradycardia H/O hyperkalemia Chronic diastolic heart failure Abdominal pain Chronic kidney disease (CKD) Weight disorder Neuropathy, peripheral LBP - Low back pain Tobacco abuse Hypertension Heart murmur Migraine Depression Spinal stenosis CKD (chronic kidney disease) stage 3, GFR 30-59 ml/min Herniated disc Pinched nerve Peripheral venous insufficiency Carotid artery stenosis Benign hypertension Chronic kidney disease stage 3 Smoker OBJECTIVE Vitals: Last Updated 12/04/20 07:54 Date Temp BP Location Pulse RR SpO2 Pain 12/04/20 130/50 Right Arm 12/04/20 138/52 Left Arm 52 20 98 3 11/19/20 140/54 Left Arm Vital Signs are the last 3 documented. Orthostatic: Last Updated 08/26/10 18:34 Date Lying Pulse Sitting Pulse Standing Pulse 08/26/10 120/47 76 110/50 81 Orthostatic blood pressures are the last 3 documented. Height and Weight: Last Updated 12/04/20 07:52 Date BMI Wt(kg) Wt(lb) Method Ht(cm) (ft-in) Method 12/04/20 34.32 96.3 212 Standing Scale 167.5 5-6 11/19/20 97.3 214 Standing Scale 09/18/20 98.1 216 Standing Scale Heights and Weights are the last 3 documented. Physical Exam General:NCAT, NAD HEENT:EOMI, PERRL, Sclera Anicteric, left sided carotid bruit present on auscultation. Heart:Regular Rate and Rhythm. Holosystolic blowing murmur present. Pulses palpable in all distal extremities Chest:CTAB Normal respiratory effort, Symmetrical expansion bilaterally Abdomen:Soft, Nontender, Nondistended Extremity:WWP, Moving all extremities without assistance Neuro:AAOx3 Skin:No rashes or lesions noted 30 Day Labs: No 30 Day Lab Data. ASSESSMENT: 75 year old female with history of carotid artery stenosis, and renal artery stenosis. She has significant Left sided ICA stenosis just distal to the bifurcation, and will require a carotid endarterectomy. This is a more pressing need at this time than establishment of dialysis access (which we have options for, should she need dialysis emergently). This was discussed in clinic and she was amenable to proceeding forward with CEA prior to establishment of di alysis access. In the meantime, we will protect the left arm, and she has given a band in clinic today to avoid lab sticks/draws. She will be a suitable candidate for creation of a Brachiocephalic fistula at a later date. PLAN: _ 1 ) Risks, Benefits, Alternatives to Left Carotid Endarterectomy discussed in clinic today. Informed consent was obtained and she will be scheduled for operative intervention. 2 ) She was given an arm band for her left arm to protect for future dialysis access creation. She was counselled to avoid needle sticks and lab draws in the left arm. We will plan for a Brachiocephalic fistula in the left arm at a later date. I saw and evaluated the patient. Discussed with the resident and agree with the resident's findings and plan as documented in the resident's note. Signature Line Electronic Signature on File Electronically Reviewed/Signed by: Rod Sanchez MD Author Signature Dt/Tm:12/04/2020 09:09 AM Resident Division of General Surgery Electronically Reviewed/Signed by: Mark Love MD Cosigner Signature Dt/Tm: 12/05/2020 07:40 AM Professor Of Vegetable Science Mike Mercado [facility] [place], [address] [place] [address] JM Result Type: Vascular Surgery Outpt Note Date of Service: December 04, 2020 08:58 EDT Authorization Status: Final Author or Import Date: MD Sanchez Jason on December 04, 2020 09:09 EDT Verified By: MD Love Eugene J on December 05, 2020 07:40 EDT Encounter info: [id number], [facility], Clinic, 12/04/2020 - 12/04/2020 Admission Exam Per Admitting Provider General: NCAT, NAD HEENT: EOMI, PERRL, Sclera Anicteric, left sided carotid bruit present on ausc ultation. Heart: Regular Rate and Rhythm. Holosystolic blowing murmur present. Pulses palpable in all distal extremities Chest: CTAB Normal respiratory effort, Symmetrical expansion bilaterally Abdomen: Soft, Nontender, Nondistended Extremity: WWP, Moving all extremities without assistance Neuro: AAOx3 Skin: No rashes or lesions noted Principal Diagnosis 1. s/p L CEA 2. L ICA stenosis Discharge Exam Constitutional WD/WN, vitals as above Neck trachea midline Respiratory normal respiratory effort; no respiratory distress Cardiovascular Rate/Rhythm: regular rate and regular rhythm Musculoskeletal no cyanosis or clubbing, extremities motor strength 5/5 Skin + incision (dry and clean without swelling) Neurologic CN's II-XI intact bilaterally and moves all extremities Psychiatric Orientation: alert and oriented x 3 Discharge Data Allergies Allergy/AdvReac Type Severity Reaction Status Date / Time Bactrim Allergy Severe ELEVATED Verified 08/15/13 14:34 POTASSIUM, BRADYCARDIC "HEART TRIED TO SHUT DOWN" sulfamethoxazole Allergy Severe ELEVATED Verified 12/10/20 06:22 POTASSIUM, BRADYCARDIC "HEART TRIED TO SHUT DOWN" trimethoprim Allergy Severe ELEVATED Verified 12/10/20 06:22 POTASSIUM, BRADYCARDIC "HEART TRIED TO SHUT DOWN" gabapentin Allergy Intermediate HALLUCINATIONS; Verified 12/10/20 06:22 SCREAMING/YELLING codeine Allergy Mild RASH, Verified 12/10/20 06:22 RAPID HEART BEAT hydromorphone [From Dilaudid] AdvReac Mild Hallucinati Verified 12/10/20 06:22 ng acetaminophen [From Percocet] AdvReac Unknown Verified 12/10/20 06:22 morphine AdvReac Hallucinati Verified 12/10/20 06:22 ng oxycodone [From Percocet] AdvReac Unknown Verified 12/10/20 06:22 Consultations 12/10/20 07:31 Consult [employer] Routine Procedures Performed Operation Date: 12/10/20 08:00 Actual Procedures p Left Carotid Endarterectomy with Bovine Patch(Left) - Mark Love MD Hospital Course (1) Postoperative carotid endarterectomy surveillance, encounter for: Doing well post op day 1. Will D/C home today. Total Time Total Time Spent Total Time Spent (In Minutes): 0 Discharge Plan Discharge Items Patient Disposition: Home - Self-Care Reason For Visit: Left Internal Cartoid Artery Stenosis Discharge Diagnosis: Left internal carotid artery stenosis, post left carotid endarterectomy Activity: Per Instructions section Non-emergency contact: Surgeon Call non-emergency contact if: your temperature is above 101.5, your wound has increased redness, your wound has increased drainage and your wound pain has increased Follow-up/Referrals: Gabbie Hunter PA-C [Primary Care Provider] - 12/13/20 12:20 pm (Please arrive 15 minutes early.) Diet: Heart Healthy Addtl Attending Provider Instructions: SPECIAL CARE INSTRUCTIONS: Medications: * Continue to take Aspirin as directed. Incision Care: * You may shower, but do not rub incision. You may let the warm soapy water run over it. Be sure to dry the incision well after bathing. * Do not shave directly over the incision until it is healed. * DO NOT IMMERSE THE INCISION IN A TUB/POOL/etc. UNTIL HEALED. Restrictions: * Do not drive for at least one week or if you are still taking any narcotic pain medication. * Do not lift anything heavier than a gallon of milk for one week after going home. Possible Complications: * Numbness - It is normal to have some numbness around the incision. Numbness can extend beyond the incision to areas of the neck, ear and face. The numbness is due to bruising of nerves during the surgery and will gradually improve over a period of months. * Hoarseness/Difficulty Speaking and Swallowing - The bruising of nerves in the neck can also cause a hoarse voice, difficulty speaking or swallowing. This may improve over time, HOWEVER, if it continues for more than a few days please contact our office ([phone]). * Excessive Swelling - There will be some swelling immediately after surgery which usually resolves within one week. If you notice that the swelling is getting worse, notify your surgeon ([phone]). * Drainage/Bleeding - If there is any drainage or bleeding, it should be a very small amount (less than a teaspoon per day). If you have excessive bleeding or drainage from the incision, call your surgeon ([phone]) right away. ACTIVATION OF EMERGENCY MEDICAL SYSTEM: Call 911, immediately, if you experience any of the following: Warning Signs and Symptoms of Stroke: * Sudden numbness or weakness of the face, arm or leg, especially on one side of the body * Sudden confusion, trouble speaking or understanding * Sudden trouble seeing in one or both eyes * Sudden trouble walking, dizziness, loss of balance or coordination * Sudden severe headache with no cause Do not delay calling 911 if you experience any warning signs or symptoms of a stroke. Delay in seeking medical attention may affect what treatments can be given to you. Risk Factors for Stroke: You can reduce your chances of stroke by working with your medical provider to adopt a healthy lifestyle. Some specific ways to lower your chance of stroke are: * If you are a smoker, now is the time to stop smoking cigarettes * If you are diabetic, improve the control of your blood sugars * Avoid excessive amounts of alcohol * Control high blood pressure * Lose weight if you are overweight * Be sure to lead an active lifestyle * Eat a healthy diet low in salt, cholesterol and fat You should know about other risk factors for stroke that you are unable to control. These include: * Age 55 years or older * Male gender * Certain racial groups: , or / * Family History of Stroke, Mini stroke or Heart Attack * Sickle Cell Disease You will be receiving a call from the Vascular Surgery Nurse after you are discharged. FOLLOW UP VISIT: It is important for you to keep your follow up appointments with your medical provider. Keep any scheduled doctor appointments. Call [phone] to schedule a follow up appointment if one not already scheduled. Pending Studies at Discharge: No Stand-Alone Forms: My [facility] [employer], Smoking Cessation Medications and DC Order Prescriptions: New tramadol 50 mg tablet 50 mg PO Q8H PRN (Reason: pain) Qty: 5 RF: 0 Continued atorvastatin 40 mg Tablet 40 mg PO QPM RF: 0 Calcium 600 + D(3) 600 mg calcium- 200 unit Capsule 1 cap PO QAM RF: 0 aspirin 81 mg Tablet,Delayed Release (Dr/Ec) 81 mg PO QAM RF: 0 hydrochlorothiazide 25 mg Tablet 25 mg PO QAM RF: 0 albuterol sulfate 5 mg/mL Solution For Nebulization 2.5 mg INHALATION Q4 PRN (Reason: Shortness Of Breath) RF: 0 loratadine 10 mg Tablet 10 mg PO QAM PRN (Reason: Allergy Symptoms) RF: 0 hydralazine 100 mg tablet 100 mg PO BID RF: 0 amlodipine 10 mg tablet 10 mg PO QAM RF: 0 carvedilol 3.125 mg tablet 3.125 mg PO BID RF: 0 multivitamin Tablet 1 tab PO DAILY RF: 0 ascorbic acid (vitamin C) [Vitamin C] 500 mg Tablet 500 mg PO DAILY RF: 0 vit B complex with B12 and C 1 tab PO DAILY RF: 0 nortriptyline [Pamelor] 10 mg capsule 10 mg PO HS RF: 0 Discharge Orders: Discharge Order (Routine); Ordered 12/11/20 Ordered By: Mark Love Admission Data Admit Date/Time: 12/10/20 07:31 Attending Provider: Mark Love Admit Provider: Mark Love Primary Care Provider: Gabbie Hunter Other Providers: Christoph Hernandez ; Edward Dunbar ; Deric Hernandez ; Noah Villavicencio ; Dhiraj Venegas ; Philip Waters ; Alexander Anne Other Interventions: Discharge Summary Assessment (RN) Last Done: 12/11/20 12:55
== END 2020-12-11 13:31 | disposition home or self-care (01) | DRG 39 ==
LOC: ASU 05:41 → 1E 07:31

== ENCOUNTER 2021-03-12 16:47 | Inpatient (IN) ==
[2021-03-12 18:08] LABS: Hematocrit (blood only) 23.8 % (37-47); Hemoglobin 7.4 g/dL (12.0-16.0); Mean Corpuscular Hemoglobin 26.8 pg (25-34); Mean Corpuscular Hgb Conc 31.1 g/dL (32-36); Mean Corpuscular Volume 86.2 fL (80-100); Mean Platelet Volume 8.9 fL (7.4-10.4); Platelet Count 340 K/uL (130-400); RDW Coefficient of Variation 18.9 % (11.5-14.5); RDW Standard Deviation 59.5 fL (36.4-46.3); Red Blood Count 2.76 M/uL (4.2-5.4); White Blood Count 9.24 K/uL (4.8-10.8)
[2021-03-12 18:22] LABS: Partial Thromboplastin Time 27.3 Seconds (21.0-31.0); Prothrombin Time 9.8 Seconds (9.0-12.0)
[2021-03-12 18:26] LABS: Alanine Aminotransferase 13 U/L (12-78); Albumin Level 3.2 gm/dl (3.4-5.0); Aspartate Aminotransferase 15 U/L (15-37); Blood Urea Nitrogen 74 mg/dl (7-18); Calcium 8.6 mg/dl (8.5-10.1); Carbon Dioxide 26 mmol/L (21-32); Chloride 100 mmol/L (98-107); Est GFR (African American) 13.2 ml/min; Est GFR (Non-African American) 11.4 ml/min; Glucose 120 mg/dl (70-99); Potassium 4.1 mmol/L (3.5-5.1); Sodium 133 mmol/L (136-145)
[2021-03-12 18:29] LABS: Albumin Globulin Ratio 0.9 (0.9-2); Alkaline Phosphatase 131 U/L (45-117); Bilirubin,Total 0.3 mg/dl (0.2-1); Globulin 3.6 gm/dl (2.5-4.0); Total Protein 6.8 gm/dl (6.4-8.2)
[2021-03-12] MEDS ORDERED: SODIUM CHLORIDE 0.9% 250 ML IV PRN ×2 (20:04→20:07)
--- NOTE | 2021-03-12 20:13 | Emergency Department Note ---
Impression & Plan Symptomatic anemia, Chronic kidney disease, stage 4 (severe), Generalized weakness ED Provider Note NAME: FELI JAUREGUI AGE: 76 SEX: F ARRIVES VIA: Walk-In INFORMANT: Patient, ED PROVIDER(S): Quintin Morataya MD CHIEF COMPLAINT: Anemia. Weakness. PLAN: Disposition: Admit MEDICAL DECISION MAKING: The patient is a pleasant 76-year-old woman with a past medical history of CKD, history of upper GI bleed, renal artery stenosis, PAD, hypertension, hyperlipidemia, GERD, COPD who presents to the emergency department, by her son for generalized weakness that has been worsening over the past month and being followed by the [facility] for chronic anemia where she reports she receives regular injections of EPO and was seen at [facility] last week but was only given iron per her understanding. She was seen by the cancer center today and given EPO and had blood work drawn and the patient was contacted to inform her that her hemoglobin had down trended and they had scheduled her for blood transfusion tomorrow. Her hemoglobin was 7.9 which was down from 9.0 in January. However, she did tell them that she was feeling much weaker in the interim of being seen this morning and so she is referred to emergency department for transfusion. Blood performed on arrival shows a hemoglobin of 7.4. Patient denies any bloody or black stools. She reports feeling generalized weakness, dyspnea with minimal exertion and malaise that she attributes to her anemia and she frequently improves with blood transfusion. She was in agreement with plan for admission for transfusion and further monitoring. On arrival patient is chronically ill-appearing but no acute distress, afebrile with stable vital signs. She appears clinically dry. She has no focal neurologic deficits. Abdomen is benign. EKG without overt acute ischemia. CXR with nonspecific interstitial thickening and otherwise negative for acute cardiopulmonary process. WBC and platelets wnl. H/H 7.4/23.8 per above. Chemistry without acidosis. Electrolytes unremarkable. Cr. 3.6 in setting of CKD. LFTs without significant abnormality. Troponin negative/undetectable. TSH wnl. UA without convincing evidence of infection. Covid-19 PCR negative. Patient was consented for blood transfusion and given 1 unit PRBC for symptomatic anemia. . Case was discussed with Dr. López, [facility] hospitalist, who will evaluate the patient for admission. Triage Nursing notes reviewed and agree them. Prior medical records reviewed Vital Signs: reviewed and remarkable for no significant abnormalities Differential diagnosis: Infection, dehydration, metabolic abnormality, hypo/hyperglycemia, electrolyte disturbance, anemia, hypoxia, cardiac sources, intracerebral event, toxicologic, neurologic, as well as other pathologies. ER treatment provided: See below. Diagnostics interpreted by me: ECG: Sinus rhythm with 1st degree A-V block, 65 bpm, no ectopy, no overt ST elevation or depression. Cardiac Monitoring: An order for continuous cardiac monitoring was placed and demonstrated Sinus rhythm with 1st degree A-V block, 65 bpm, no ectopy Laboratory studies: See below Imaging studies: See below Consultation(s): Case was discussed with Dr. López, [facility] hospitalist, who will evaluate the patient for admission. HPI: The patient is a pleasant 76-year-old woman with a past medical history of CKD, history of upper GI bleed, renal artery stenosis, PAD, hypertension, hyperlipidemia, GERD, COPD who presents to the emergency department, by her son for generalized weakness that has been worsening over the past month and being followed by the [facility] for chronic anemia where she reports she receives regular injections of EPO and was seen at [facility] last week but was only given iron per her understanding. She was seen by the cancer center today and given EPO and had blood work drawn and the patient was contacted to inform her that her hemoglobin had down trended and they had scheduled her for blood transfusion tomorrow. Her hemoglobin was 7.9 which was down from 9.0 in January. Ever, she did tell them that she was feeling much weaker in the interim of being seen this morning and so she is referred to emergency department for transfusion. Blood performed on arrival shows a hemoglobin of 7.4. Patient denies any bloody or black stools. She reports feeling generalized weakness, dyspnea with minimal exertion and malaise that she attributes to her anemia and she frequently improves with blood transfusion. She was in agreement with plan for admission for transfusion and further monitoring. ROS: See above HPI for pertinent positives & negatives. A total of 10 systems reviewed and were otherwise negative. PAST MEDICAL HISTORY:See Below PAST SURGICAL HISTORY:See Below FAMILY HISTORY:See Below SOCIAL HISTORY:See Below HOME MEDICATIONS:See Below ALLERGIES:See Below VITALS:See Below PHYSICAL EXAMINATION: GENERAL: Awake, alert, chronically ill-appearing, in no distress HENT: Normocephalic, atraumatic. Oropharynx with dry mucous membranes and otherwise unremarkable. . EYES: Normal conjunctiva. Sclera non-icteric. NECK: Supple. No nuchal rigidity. FROM. No JVD. RESPIRATORY: Clear to auscultation. CARDIAC: Regular rate, normal rhythm. Extremities warm and well perfused. Pulses equal. left wrist AV fistual with palpable bruit. ABDOMEN: Soft, non-distended. No tenderness to palpation. No rebound or gua rding. No masses. RECTAL: Deferred. MUSCULOSKELETAL: Chest examination reveals no tenderness. The back is symmetrical on inspection without obvious abnormality. There is no CVA tenderness to palpation. No joint edema. LOWER EXTREMITIES: Calves are equal size bilaterally and non-tender. No edema. No discoloration. NEURO: Normal sensorium. No focal sensory or motor deficits noted. 5/5 strength and SILT x 4 extremities. SKIN: No rash or jaundice noted. ED COURSE: Critical Care: I have personally spent greater than 35 minutes of critical care time in the direct management of this patient. This includes bedside care, interpretation of diagnostic studies, and testing, discussion with consultants, patient, and family members, and other required patient management activities. This 35 minutes is in excess of all separately billable procedures. Quintin Morataya MD Past Med/Surg History Medical History Anemia Cardiac murmur "Since I was born and never given me trouble" ECHO from 2018- shows only mild AV sclerosis Carotid stenosis, left Left carotid endarterectomy 11/[address] [facility] with [address] Love Chronic back pain Chronic kidney disease, stage 4 (severe) Chronic obstructive pulmonary disease inhaler/nebulizer prn GERD (gastroesophageal reflux disease) Gout hx Hyperlipidemia Hypertension Mesenteric artery stenosis Peripheral arterial disease Renal artery stenosis Surgical History History of bilateral cataract extraction History of carotid endarterectomy (12/10/20) [facility] with Dr Love History of carpal tunnel release of both wrists History of cholecystectomy History of colonoscopy with polypectomy History of esophagogastroduodenoscopy (EGD) History of laminectomy History of repair of right rotator cuff History of tooth extraction all teeth removed Family History Mother Family history of diabetes mellitus Brother Family history of diabetes mellitus Sister Family history of diabetes mellitus Other No family history of adverse response to anesthesia Social History Smoking Status: Current every day smoker Tobacco Type: Cigarettes Cigarettes Per Day: 20; Second Hand Exposure: Yes; Hx Alcohol Use: No Hx Substance Use: No Preferred Language: Maltese Communication Ability: Effective Hand Cigar Maker Required: No Beliefs That Will Affect Care: None Current Living Situation: Alone Feels Safe at Home: Yes Safety Concerns: Feels Safe At This Time Assistive Devices: Walker Allergies Allergies Allergy/AdvReac Type Severity Reaction Status Date / Time Bactrim Allergy Severe ELEVATED Verified 08/15/13 14:34 POTASSIUM, BRADYCARDIC "HEART TRIED TO SHUT DOWN" sulfamethoxazole Allergy Severe ELEVATED Verified 03/12/21 19:31 POTASSIUM, BRADYCARDIC "HEART TRIED TO SHUT DOWN" trimethoprim Allergy Severe ELEVATED Verified 03/12/21 19:31 POTASSIUM, BRADYCARDIC "HEART TRIED TO SHUT DOWN" gabapentin Allergy Intermediate HALLUCINATIONS; Verified 03/12/21 19:31 SCREAMING/YELLING codeine Allergy Mild RASH, Verified 03/12/21 19:31 RAPID HEART BEAT hydromorphone [From Dilaudid] AdvReac Mild Hallucinati Verified 03/12/21 19:31 ng morphine AdvReac Unknown Unknown Verified 03/12/21 19:31 oxycodone [From Percocet] AdvReac Unknown Unknown Verified 03/12/21 19:31 Home Meds Home Medications Medication Instructions Recorded Confirmed albuterol sulfate 5 mg/mL(0.5 %) 2.5 mg INHALATION Q4 PRN 09/16/18 03/12/21 solution for nebulization aspirin 81 mg tablet,delayed 81 mg PO QAM 09/16/18 03/12/21 release atorvastatin 40 mg tablet 40 mg PO QPM 09/16/18 03/12/21 calcium carbonate-vitamin D3 600 1 cap PO QAM 09/16/18 03/12/21 mg calcium-200 unit capsule (Calcium 600 + D(3)) loratadine 10 mg tablet 10 mg PO QAM PRN 09/16/18 03/12/21 hydralazine 100 mg tablet 100 mg PO BID 04/19/19 03/12/21 amlodipine 10 mg tablet 10 mg PO QAM 10/10/20 03/12/21 carvedilol 3.125 mg tablet 3.125 mg PO BID 10/10/20 03/12/21 ascorbic acid (vitamin C) 500 mg 500 mg PO QAM 12/10/20 03/12/21 tablet (Vitamin C) multivitamin 1 tab PO DAILY 12/10/20 03/12/21 B-complex with vitamin C 1 tab PO QAM 02/17/21 03/12/21 furosemide 20 mg tablet 20 mg PO QAM 02/17/21 03/12/21 hydrochlorothiazide 50 mg tablet 50 mg PO QAM 02/17/21 03/12/21 dexlansoprazole 60 mg 60 mg PO DAILY 03/12/21 03/12/21 capsule,biphase delayed release (Dexilant) Results & Data (ED) Vital Signs Vital Signs - 24 hr 03/12/21 17:09 03/12/21 20:50 03/12/21 21:05 Temperature 35.6 C L 37.0 C 37.0 C Temperature Source Temporal Artery Scan Oral Oral Pulse Rate 65 66 68 Pulse Rhythm Regular Regular Pulse Strength Normal Respiratory Rate 19 18 18 Respiratory Effort / Characteristics Non-Labored Respiratory Depth Normal Respiratory Pattern Regular Blood Pressure 177/70 H 114/67 150/48 H Blood Pressure Mean 105 82 82 Blood Pressure Position Lying Pulse Oximetry 98 94 96 Oxygen Delivery Method Room Air Sepsis Recent Fever Within 48 Hours No Sepsis New/Unexplained Change in Mental Status N/A Sepsis Action Taken by Nursing No Action Required 03/12/21 21:20 03/12/21 21:50 Temperature 37.0 C 37.2 C Temperature Source Oral Oral Pulse Rate 64 63 Pulse Rhythm Pulse Strength Respiratory Rate 18 20 Respiratory Effort / Characteristics Respiratory Depth Respiratory Pattern Blood Pressure 177/74 H 173/60 H Blood Pressure Mean 108 97 Blood Pressure Position Pulse Oximetry 97 97 Oxygen Delivery Method Sepsis Recent Fever Within 48 Hours Sepsis New/Unexplained Change in Mental Status Sepsis Action Taken by Nursing Laboratory Data Attestation: I reviewed the patient's lab results. Result diagrams: 03/12/21 17:46 03/12/21 17:46 Lab Results 03/12/21 03/12/21 03/12/21 Range/Units 17:46 17:46 17:46 WBC 9.24 (4.8-10.8) K/uL RBC 2.76 L (4.2-5.4) M/uL Hgb 7.4 L (12.0-16.0) g/dL Hct 23.8 L (37-47) % MCV 86.2 (80-100) fL MCH 26.8 (25-34) pg MCHC 31.1 L (32-36) g/dL RDW Std Deviation 59.5 H (36.4-46.3) fL RDW Coeff of Kris 18.9 H (11.5-14.5) % Plt Count 340 (130-400) K/uL MPV 8.9 (7.4-10.4) fL PT 9.8 (9.0-12.0) Seconds INR 1.0 (0.9-1.1) APTT 27.3 (21.0-31.0) Seconds PTT Ratio 1.0 Sodium (136-145) mmol/L Potassium (3.5-5.1) mmol/L Chloride (98-107) mmol/L Carbon Dioxide (21-32) mmol/L Anion Gap (3-11) BUN (7-18) mg/dl Creatinine (0.6-1.2) mg/dl Est Cr Clr Drug Dosing Est GFR ( Amer) ml/min Est GFR (Non-Af Amer) ml/min BUN/Creatinine Ratio (10-20) Glucose (70-99) mg/dl Calcium (8.5-10.1) mg/dl Phosphorus (2.5-4.9) mg/dl Magnesium (1.8-2.4) mg/dl Total Bilirubin (0.2-1) mg/dl AST (15-37) U/L ALT (12-78) U/L Alkaline Phosphatase (45-117) U/L Troponin I (0-0.045) ng/ml Total Protein (6.4-8.2) gm/dl Albumin (3.4-5.0) gm/dl Globulin (2.5-4.0) gm/dl Albumin/Globulin Ratio (0.9-2) TSH (0.300-4.500) uIu/ml Urine Color Urine Appearance (Clear) Urine pH (4.5-7.5) Ur Specific [place] (1.000-1.030) Urine Protein (Negative) Urine Glucose (UA) (Negative) Urine Ketones (Negative) Urine Blood (Negative) Urine Nitrite (Negative) Urine Bilirubin (Negative) Urine Urobilinogen (Negative) Ur Leukocyte Esterase (Negative) Urine WBC (Auto) (0-5) /hpf Urine RBC (Auto) (0-4) /hpf U Hyaline Cast (Auto) (0-5) /lpf U Epithel Cells (Auto) (0-5) /lpf Urine Bacteria (Auto) (Negative) COVID-19 Eval Order SARS-CoV-2 (PCR) (Negative) Blood Type O Positive Antibody Screen NEGATIVE Crossmatch See Detail 03/12/21 03/12/21 03/12/21 Range/Units 17:46 17:46 21:12 WBC (4.8-10.8) K/uL RBC (4.2-5.4) M/uL Hgb (12.0-16.0) g/dL Hct (37-47) % MCV (80-100) fL MCH (25-34) pg MCHC (32-36) g/dL RDW Std Deviation (36.4-46.3) fL RDW Coeff of Kris (11.5-14.5) % Plt Count (130-400) K/uL MPV (7.4-10.4) fL PT (9.0-12.0) Seconds INR (0.9-1.1) APTT (21.0-31.0) Seconds PTT Ratio Sodium 133 L (136-145) mmol/L Potassium 4.1 (3.5-5.1) mmol/L Chloride 100 (98-107) mmol/L Carbon Dioxide 26 (21-32) mmol/L Anion Gap 7.0 (3-11) BUN 74 H (7-18) mg/dl Creatinine 3.67 H (0.6-1.2) mg/dl Est Cr Clr Drug Dosing Not Reportable Est GFR ( Amer) 13.2 ml/min Est GFR (Non-Af Amer) 11.4 ml/min BUN/Creatinine Ratio 20.0 (10-20) Glucose 120 H (70-99) mg/dl Calcium 8.6 (8.5-10.1) mg/dl Phosphorus 5.2 H (2.5-4.9) mg/dl Magnesium 4.1 H (1.8-2.4) mg/dl Total Bilirubin 0.3 (0.2-1) mg/dl AST 15 (15-37) U/L ALT 13 (12-78) U/L Alkaline Phosphatase 131 H (45-117) U/L Troponin I < 0.015 (0-0.045) ng/ml Total Protein 6.8 (6.4-8.2) gm/dl Albumin 3.2 L (3.4-5.0) gm/dl Globulin 3.6 (2.5-4.0) gm/dl Albumin/Globulin Ratio 0.9 (0.9-2) TSH 3.390 (0.300-4.500) uIu/ml Urine Color Urine Appearance (Clear) Urine pH (4.5-7.5) Ur Specific [place] (1.000-1.030) Urine Protein (Negative) Urine Glucose (UA) (Negative) Urine Ketones (Negative) Urine Blood (Negative) Urine Nitrite (Negative) Urine Bilirubin (Negative) Urine Urobilinogen (Negative) Ur Leukocyte Esterase (Negative) Urine WBC (Auto) (0-5) /hpf Urine RBC (Auto) (0-4) /hpf U Hyaline Cast (Auto) (0-5) /lpf U Epithel Cells (Auto) (0-5) /lpf Urine Bacteria (Auto) (Negative) COVID-19 Eval Order Covid19 at [facility] SARS-CoV-2 (PCR) (Negative) Blood Type Antibody Screen Crossmatch 03/12/21 03/12/21 Range/Units 21:12 21:27 WBC (4.8-10.8) K/uL RBC (4.2-5.4) M/uL Hgb (12.0-16.0) g/dL Hct (37-47) % MCV (80-100) fL MCH (25-34) pg MCHC (32-36) g/dL RDW Std Deviation (36.4-46.3) fL RDW Coeff of Kris (11.5-14.5) % Plt Count (130-400) K/uL MPV (7.4-10.4) fL PT (9.0-12.0) Seconds INR (0.9-1.1) APTT (21.0-31.0) Seconds PTT Ratio Sodium (136-145) mmol/L Potassium (3.5-5.1) mmol/L Chloride (98-107) mmol/L Carbon Dioxide (21-32) mmol/L Anion Gap (3-11) BUN (7-18) mg/dl Creatinine (0.6-1.2) mg/dl Est Cr Clr Drug Dosing Est GFR ( Amer) ml/min Est GFR (Non-Af Amer) ml/min BUN/Creatinine Ratio (10-20) Glucose (70-99) mg/dl Calcium (8.5-10.1) mg/dl Phosphorus (2.5-4.9) mg/dl Magnesium (1.8-2.4) mg/dl Total Bilirubin (0.2-1) mg/dl AST (15-37) U/L ALT (12-78) U/L Alkaline Phosphatase (45-117) U/L Troponin I (0-0.045) ng/ml Total Protein (6.4-8.2) gm/dl Albumin (3.4-5.0) gm/dl Globulin (2.5-4.0) gm/dl Albumin/Globulin Ratio (0.9-2) TSH (0.300-4.500) uIu/ml Urine Color Yellow Urine Appearance Clear (Clear) Urine pH 7.0 (4.5-7.5) Ur Specific [place] 1.009 (1.000-1.030) Urine Protein 2+ H (Negative) Urine Glucose (UA) Negative (Negative) Urine Ketones Negative (Negative) Urine Blood Negative (Negative) Urine Nitrite Negative (Negative) Urine Bilirubin Negative (Negative) Urine Urobilinogen Negative (Negative) Ur Leukocyte Esterase Negative (Negative) Urine WBC (Auto) 1-5 (0-5) /hpf Urine RBC (Auto) 0-4 (0-4) /hpf U Hyaline Cast (Auto) 1-5 (0-5) /lpf U Epithel Cells (Auto) >30 H (0-5) /lpf Urine Bacteria (Auto) Negative (Negative) COVID-19 Eval Order SARS-CoV-2 (PCR) NEGATIVE (Negative) Blood Type Antibody Screen Crossmatch Administered Medications Hydralazine HCl (Hydralazine Tab 50 Mg Tab) 100 mg PO BID EVON Stop: 04/12/21 00:53 Last Admin: 03/13/21 01:31 Dose: 100 mg Documented by: [id number] Nicotine (Nicotine 21 Mg/24 Hr Tdsy) 21 mg TD QAM EVON Stop: 04/11/21 22:22 Last Admin: 03/13/21 01:30 Dose: 21 mg Documented by: [id number] Discontinued Medications Carvedilol (Carvedilol 3.125 Mg Tab) 3.125 mg PO NOW STA Stop: 03/12/21 21:57 Last Admin: 03/12/21 22:10 Dose: 3.125 mg Documented by: [id number] Sodium Chloride (Nss) 500 mls @ 250 mls/hr IV .Q2H EVON Stop: 04/11/21 20:14 Last Infusion: 03/13/21 01:23 Dose: 0 mls/hr Documented by: [id number] Admin: 03/13/21 00:25 Dose: 250 mls/hr Documented by: [id number] Imaging Data Radiologist's Impression: Chest X-Ray 03/12/21 20:04 XR chest 1V portable CLINICAL HISTORY: Shortness of breath. COMPARISON STUDY: Chest radiograph December 06, 2020. FINDINGS: Lung volumes are normal. Lungs are clear. There is no pneumothorax or pleural effusion. Note is made of mild cardiomegaly. Mediastinal contours are normal. There is no evidence for pulmonary edema. IMPRESSION: Mild cardiomegaly. Subtle nonspecific interstitial thickening. ACT 112: Negative or not required by law. Electronically signed by: Conor Glasgow M.D. 03/12/2021 9:05 PM Discharge Plan Visit Data Chief Complaint: Lethargic Stated Complaint: LETHARGIC, TROUBLE BREATHING, CANT WALK ED Provider: Quintin Morataya Discharge Problem: Symptomatic anemia, Chronic kidney disease, stage 4 (severe), Generalized weakness Patient Disposition: Admitted As Inpatient Discharge Instructions Interventions: ED Discharge Assessment Last Done: 03/13/21 00:48
[2021-03-12] MEDS ORDERED: SODIUM CHLORIDE 0.9% 500 ML IV SCH (20:15)
[2021-03-12 20:29] LABS: Magnesium 4.1 mg/dl (1.8-2.4); Phosphorus 5.2 mg/dl (2.5-4.9); Troponin I < 0.015 ng/ml (0-0.045)
--- NOTE | 2021-03-12 21:05 | History & Physical Report ---
Date of Service March 12, 2021 Assessment & Plan (1) Symptomatic anemia: (2) Chronic kidney disease, stage 4 (severe): (3) Hypertension: (4) Chronic obstructive pulmonary disease: (5) Peripheral arterial disease: (6) Tobacco use disorder: Plan: HPI, PMH, med rec, PE completed by Cady Dior PA-C Assessment and plan per Dr López, see addendum History of Present Illness Chief Complaint: Generalized weakness Primary Care Provider: Gabbie Hunter PA-C Patient is 76-year-old female with PMH HTN, CKD IV, CAD, PAD, COPD, tobacco use presented to ER with complaint of generalized weakness. Patient reports for the past several weeks she has had weakness and has been having her H&H monitored. States last couple of days feeling more weak, tired, having dizziness and shortness of breath with exertion. Patient history hospitalized [facility] 02/26/2021- 02/27/2021 for acute respiratory failure, anemia of chronic disease, LESLIE on CKD IV. She had VQ scan negative for PE, Hgb: 8.6, thought likely secondary to anemia of chronic disease. She was given [facility]. Patient reports receives [facility] outpatient approximately every 3 weeks. Hemoglobin on 03/03/2021 was 8.7, and 8.1 on 03/10/2021. Denies fever/chills, diaphoresis, N/V/D/C, melena, hematochezia MONZON, syncope, vision changes, neck pain, CP, palpitations, cough, sore throat, choking, otalgia, rhinorrhea, abdominal pain, paresthesias, extremity edema, rashes, urinary symptoms. In ER vitals stable, H/H: 7.4/23. In ER given 1 unit PRBC Allergies Allergy/AdvReac Type Severity Reaction Status Date / Time Bactrim Allergy Severe ELEVATED Verified 08/15/13 14:34 POTASSIUM, BRADYCARDIC "HEART TRIED TO SHUT DOWN" sulfamethoxazole Allergy Severe ELEVATED Verified 03/12/21 19:31 POTASSIUM, BRADYCARDIC "HEART TRIED TO SHUT DOWN" trimethoprim Allergy Severe ELEVATED Verified 03/12/21 19:31 POTASSIUM, BRADYCARDIC "HEART TRIED TO SHUT DOWN" gabapentin Allergy Intermediate HALLUCINATIONS; Verified 03/12/21 19:31 SCREAMING/YELLING codeine Allergy Mild RASH, Verified 03/12/21 19:31 RAPID HEART BEAT hydromorphone [From Dilaudid] AdvReac Mild Hallucinati Verified 03/12/21 19:31 ng morphine AdvReac Unknown Unknown Verified 03/12/21 19:31 oxycodone [From Percocet] AdvReac Unknown Unknown Verified 03/12/21 19:31 Home Medications Medication Instructions Recorded Confirmed Type albuterol sulfate 5 mg/mL(0.5 %) 2.5 mg INHALATION Q4 PRN 09/16/18 03/12/21 History solution for nebulization aspirin 81 mg tablet,delayed 81 mg PO QAM 09/16/18 03/12/21 History release atorvastatin 40 mg tablet 40 mg PO QPM 09/16/18 03/12/21 History calcium carbonate-vitamin D3 600 1 cap PO QAM 09/16/18 03/12/21 History mg calcium-200 unit capsule (Calcium 600 + D(3)) loratadine 10 mg tablet 10 mg PO QAM PRN 09/16/18 03/12/21 History hydralazine 100 mg tablet 100 mg PO BID 04/19/19 03/12/21 History amlodipine 10 mg tablet 10 mg PO QAM 10/10/20 03/12/21 History carvedilol 3.125 mg tablet 3.125 mg PO BID 10/10/20 03/12/21 History ascorbic acid (vitamin C) 500 mg 500 mg PO QAM 12/10/20 03/12/21 History tablet (Vitamin C) multivitamin 1 tab PO DAILY 12/10/20 03/12/21 History B-complex with vitamin C 1 tab PO QAM 02/17/21 03/12/21 History furosemide 20 mg tablet 20 mg PO QAM 02/17/21 03/12/21 History hydrochlorothiazide 50 mg tablet 50 mg PO QAM 02/17/21 03/12/21 History dexlansoprazole 60 mg 60 mg PO DAILY 03/12/21 03/12/21 History capsule,biphase delayed release (Dexilant) Past Med/Surg History Medical History Anemia Cardiac murmur "Since I was born and never given me trouble" ECHO from 2018- shows only mild AV sclerosis Carotid stenosis, left Left carotid endarterectomy 11/2020 [facility] with Dr Love Chronic back pain Chronic kidney disease, stage 4 (severe) Chronic obstructive pulmonary disease inhaler/nebulizer prn GERD (gastroesophageal reflux disease) Gout hx Hyperlipidemia Hypertension Mesenteric artery stenosis Peripheral arterial disease Renal artery stenosis Surgical History History of bilateral cataract extraction History of carotid endarterectomy (12/10/20) [facility] with Dr Love History of carpal tunnel release of both wrists History of cholecystectomy History of colonoscopy with polypectomy History of esophagogastroduodenoscopy (EGD) History of laminectomy History of repair of right rotator cuff History of tooth extraction all teeth removed Family History Mother Family history of diabetes mellitus Brother Family history of diabetes mellitus Sister Family history of diabetes mellitus Other No family history of adverse response to anesthesia Social History Smoking Status: Current every day smoker Tobacco Type: Cigarettes Cigarettes Per Day: 20; Second Hand Exposure: Yes; Hx Alcohol Use: No Hx Substance Use: No Preferred Language: Swazi Communication Ability: Effective [employer] Required: No Beliefs That Will Affect Care: None Current Living Situation: Alone Feels Safe at Home: Yes Safety Concerns: Feels Safe At This Time Assistive Devices: Walker Review of Systems Review of Systems: All systems reviewed & are unremarkable except as noted in HPI & below Physical Exam Physical Exam: General: no acute distress, WDWN, chronic ill appearing Head: normocephalic, atraumatic Eyes: PERRL, EOM's intact, conjunctiva pale, anicteric ENT: normal inspection external ears, nose, mucous membranes moist Neck: supple, trachea midline Lungs: clear, no respiratory distress, no wheezing/rhonchi/rales CV: RRR, + murmur, trace pretibial edema Abd: normal BS, soft, non-tender Ext: no cyanosis, no calf tenderness Neuro: A&O x 3, no focal deficits noted, normal affect Skin: warm, dry Results & Data Results & Data ([facility]) Vital Signs (Past 12 Hours) Vital Signs Temp Pulse Resp BP Pulse Ox 03/12/21 20:50 37.0 C 66 18 114/67 94 03/12/21 17:09 35.6 C L 65 19 177/70 H 98 Laboratory Results Short CBC 03/12/21 03/12/21 Range/Units 17:46 17:46 WBC 9.24 (4.8-10.8) K/uL Hgb 7.4 L (12.0-16.0) g/dL Hct 23.8 L (37-47) % Plt Count 340 (130-400) K/uL Creatinine 3.67 H (0.6-1.2) mg/dl BMP 03/12/21 17:46 Sodium 133 L Potassium 4.1 Chloride 100 Carbon Dioxide 26 BUN 74 H Creatinine 3.67 H Glucose 120 H Calcium 8.6 Cardiac Enzymes 03/12/21 Range/Units 17:46 Troponin I < 0.015 (0-0.045) ng/ml Liver Function 03/12/21 Range/Units 17:46 Total Bilirubin 0.3 (0.2-1) mg/dl AST 15 (15-37) U/L ALT 13 (12-78) U/L Alkaline Phosphatase 131 H (45-117) U/L Albumin 3.2 L (3.4-5.0) gm/dl Diagnostic Findings Chest X-Ray 03/12/21 20:04 XR chest 1V portable CLINICAL HISTORY: Shortness of breath. COMPARISON STUDY: Chest radiograph December 06, 2020. FINDINGS: Lung volumes are normal. Lungs are clear. There is no pneumothorax or pleural effusion. Note is made of mild cardiomegaly. Mediastinal contours are normal. There is no evidence for pulmonary edema. IMPRESSION: Mild cardiomegaly. Subtle nonspecific interstitial thickening. ACT 112: Negative or not required by law. Electronically signed by: Conor Glasgow M.D. 03/12/2021 9:05 PM Supervising Physician Co-Signing Physician Notes IM ATTENDING : Patient seen and examined. History obtained from patient and records. Preceding documentation by Ms. Cady Dior PA-C reviewed. In addition, patient noted to have brown stool on rectal examination, FOBT positive. FINAL ASSESSMENT AND PLAN as follows : Symptomatic anemia Acute on chronic anemia, progressive hemoglobin drop from baseline in the setting of CKD occult GI bleed Ongoing aspirin Rx for secondary CAD/PVD prevention EGD (10/11) showed gastric polyp, Hypertension, elevated secondary to missed PM medications hx moderate (TTE 2020), patient needs to find outpatient cardiology provider CKD, patient awaiting appointment with [facility] as per preference COPD, lung status at baseline Hyperglycemia rule out DM Ongoing tobacco abuse Medical telemetry Transfuse PRBC to maintain hemoglobin greater than 8 Hold aspirin for now GI consult Re: Occult GI bleed, progressive anemia N.p.o. after midnight in anticipation of procedure Facilitate nighttime BP meds Nicotine patch Check hemoglobin A1c DVT prophylaxis. TEDS RE occult GI bleed, SCDs contraindicated with history LE PAD Full code Text document was generated using [employer] voice recognition software. It may contain grammatical or spelling errors. Kindly contact undersigned for clarification of any documentation item in question. (1) Hypertension Hypertension type: unspecified Qualified Code(s): I10 - Essential (primary) hypertension
--- NOTE | 2021-03-12 21:06 | XRay Report ---
XR chest 1V portable CLINICAL HISTORY: Shortness of breath. COMPARISON STUDY: Chest radiograph December 06, 2020. FINDINGS: Lung volumes are normal. Lungs are clear. There is no pneumothorax or pleural effusion. Not e is made of mild cardiomegaly. Mediastinal contours are normal. There is no evidence for pulmonary e eduardo. IMPRESSION: Mild cardiomegaly. Subtle nonspecific interstitial thickening. ACT 112: Negative or not required by law. Electronically signed by: Conor Glasgow M.D. 03/12/2021 9:05 PM
[2021-03-12] MEDS ORDERED: carvediloL 3.125 MG TAB PO STA (21:56)
[2021-03-12 22:45] LABS: Appearance Urine Clear (Clear); Bacteria Urine Automated Negative (Negative); Bilirubin Urine Negative (Negative); Blood Urine Negative (Negative); Color Urine Yellow; Epithelial Cell Urine Auto >30 /lpf (0-5); Glucose Urine UA Negative (Negative); Ketones Urine Negative (Negative); Leukocyte Esterase Urine Negative (Negative); Nitrite Urine Negative (Negative); Protein Urine 2+ (Negative); RBC Urine Automated 0-4 /hpf (0-4); Specific Gravity Urine 1.009 (1.000-1.030); Urobilinogen Urine Negative (Negative)
[2021-03-13] MEDS ORDERED: PROMETHAZINE HCL 12.5 MG in SODIUM CHLORIDE 0.9% 50 ML IV PRN (00:54)
[2021-03-13] MEDS ORDERED: ACETAMINOPHEN 325 MG TAB PO PRN (00:54)
[2021-03-13] MEDS ORDERED: LORATADINE 10 MG TAB PO PRN (00:54)
[2021-03-13] MEDS ORDERED: ALBUT/IPRATROP 3MG/0.5MG NEB 3 ML VIAL NEB PRN (00:54)
[2021-03-13] MEDS: NICOTINE 21 MG/24 HR TDSY TD SCH (01:30)
[2021-03-13] MEDS: hydrALAZINE TAB 50 MG TAB PO SCH ×3 (01:31→20:53)
[2021-03-13 06:03] LABS: Basophils # (auto) 0.05 K/uL (0-0.2); Basophils % (auto) 0.6 %; Eosinophils # (auto) 0.25 K/uL (0-0.5); Hematocrit (blood only) 23.3 % (37-47); Hemoglobin 7.5 g/dL (12.0-16.0); Immature Granulocytes # (auto) 0.02 K/uL (0.00-0.02); Immature Granulocytes % (auto) 0.2 %; Lymphocytes # (auto) 1.84 K/uL (1.2-3.4); Lymphocytes % (auto) 22.4 %; Mean Corpuscular Hemoglobin 27.2 pg (25-34); Mean Corpuscular Hgb Conc 32.2 g/dL (32-36); Mean Corpuscular Volume 84.4 fL (80-100); Mean Platelet Volume 9.2 fL (7.4-10.4); Monocytes # (auto) 0.53 K/uL (0.11-0.59); Monocytes % (auto) 6.5 %; Neutrophils # (auto) 5.51 K/uL (1.4-6.5); Neutrophils % (auto) 67.3 %; Platelet Count 311 K/uL (130-400); RDW Standard Deviation 55.8 fL (36.4-46.3); Red Blood Count 2.76 M/uL (4.2-5.4)
[2021-03-13 06:31] LABS: BUN Creatinine Ratio 21.4 (10-20); Calcium 8.4 mg/dl (8.5-10.1); Creatinine Clr Calc Pharmacy 16.4 ml/min; Est GFR (African American) 14.2 ml/min; Est GFR (Non-African American) 12.3 ml/min; Potassium 3.9 mmol/L (3.5-5.1)
[2021-03-13] MEDS ORDERED: SODIUM CHLORIDE 0.9% 250 ML IV PRN (06:37)
[2021-03-13 06:44] LABS: RBC Morphology Unremarkable
[2021-03-13] MEDS: MULTIVITAMIN TAB PO SCH (07:33)
[2021-03-13] MEDS: carvediloL 3.125 MG TAB PO SCH ×2 (07:33→20:52)
[2021-03-13] MEDS: VITAMIN B COMPLEX TAB PO SCH (07:33)
[2021-03-13] MEDS: PANTOprazole 40 MG TAB PO SCH (07:34)
[2021-03-13] MEDS: amLODIPine BESYLATE 5 MG TAB PO SCH (07:34)
[2021-03-13 07:57] LABS: Estimated Average Glucose 103 mg/dl; Hemoglobin A1C 5.2 % (4.5-5.6)
--- NOTE | 2021-03-13 08:46 | Gastrointestinal Consultation ---
Date of Consultation March 13, 2021 Assessment & Plan (1) Symptomatic anemia: Symptomatic anemia: The patient presents with chronic anemia admitted due to symptomatic complaints. 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 Plan for today is enteroscopy. Procedure and risks explained to patient which include but not limited to medication reaction, bleeding, perforation, aspiration, and missed lesions. Verbalizes understanding and is agreeable to proceed. Maintain n.p.o., continue IV fluids, and all other supportive care. Case reviewed with Dr. Pathak who is in agreement with plan above. Please refer to supervising physician addendum for further recommendations. Supervising Physician Co-Signing Physician Notes Patient interviewed and examined, and case reviewed with MAREN Iyer. 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 3 AVMs were cauterized with argon plasma coagulation. Flecks of dark brown old blood and mucus were identified scattered throughout the gastric fundus and body, with patchy erythema but no visible erosions or ulcers. Impression was that this was a hemorrhagic gastritis as the source for GI blood loss in this case. Recommend acid suppression with PPI. Patient is ASA 4 and high risk for endoscopic procedures. Cautery of AVMs was difficult due to tenuous respiratory status, patient movement, respiratory secretions, and coughing. If enteroscopy needs to be repeated for additional cautery, it should be performed in the OR with general anesthesia, paralysis, endotracheal intubation. Continue general support and observation for bleeding History of Present Illness Attending Physician: Karoline Car MD History of Present Illness The patient is a pleasant 76-year-old female with past medical history to include anemia, cardiac murmur, chronic back pain, stage IV kidney disease, COPD, GERD, gout, hyperlipidemia, hypertension, peripheral arterial disease, tobacco use disorder who presented to the emergency department 03/12/2021 with complaints of of weakness, fatigue, dizziness for several weeks prior to arrival in emergency department. Patient was admitted for further management due to concerns for GI bleeding and the GI service was consulted. Records reviewed: 10/11/2020: EGD notes are reviewed performed due to iron deficiency anemia secondary to chronic blood loss and melena which demonstrated a regular Z-line found 39 cm from incisors; examined esophagus was normal; a single 5 mm semisessile polyp with no bleeding and no stigmata of recent bleeding found the gastric body; examined duodenum was normal. No specimens were collected. 06/16/2019: Small bowel enteroscopy performed by Dr. 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 04/26/2019: EGD performed by Dr. Méndez due to iron deficiency anemia and heme positive stool demonstrated a regular Z-line found 37 cm from incisors; examined esophagus was normal; entire stomach was normal; ampulla and examined duodenum were normal. 09/22/2018: Colonoscopy notes reviewed performed by Dr. Méndez due to melena and iron deficiency anemia demonstrated a 5 mm polyp in the sigmoid colon, 7 mm polyp in the ascending colon, 8 mm polyp in the sigmoid colon all of which were removed. Pathology demonstrated hyperplastic polyps On exam/interview today, the patient reports this morning that she feels "crappy". She states she has had several weeks of increasing fatigue, weakness, dizziness. She does follow with hematology previously at the cancer [facility] but now [facility] with Dr. Umana. She now has a fistula in her left arm placed 11/2020. She denies any generalized abdominal pain. She does elicit epigastric pain with palpation. She states her bilateral feet hurt. She states she has shortness of breath with any activity. She reports she is dizzy with any minimal head movement. She denies nausea or vomiting. She states she had last bowel movement yesterday but did not no melena or hematochezia. Reports she is passing flatus. She is on pantoprazole 40 mg p.o. daily at home. Prior abdominal surgical history includes cholecystectomy. The patient is a current smoker. She is been smoking 1 pack of cigarettes per day for at least the last 50 years. Denies any alcohol use. Denies use of recreational drugs including marijuana. She is . She has 4 adult children and multiple grandchildren and great-grandchildren. She retired at the age of 62. Allergies Allergy/AdvReac Type Severity Reaction Status Date / Time Bactrim Allergy Severe ELEVATED Verified 08/15/13 14:34 POTASSIUM, BRADYCARDIC "HEART TRIED TO SHUT DOWN" sulfamethoxazole Allergy Severe ELEVATED Verified 03/12/21 19:31 POTASSIUM, BRADYCARDIC "HEART TRIED TO SHUT DOWN" trimethoprim Allergy Severe ELEVATED Verified 03/12/21 19:31 POTASSIUM, BRADYCARDIC "HEART TRIED TO SHUT DOWN" gabapentin Allergy Intermediate HALLUCINATIONS; Verified 03/12/21 19:31 SCREAMING/YELLING codeine Allergy Mild RASH, Verified 03/12/21 19:31 RAPID HEART BEAT hydromorphone [From Dilaudid] AdvReac Mild Hallucinati Verified 03/12/21 19:31 ng morphine AdvReac Unknown Unknown Verified 03/12/21 19:31 oxycodone [From Percocet] AdvReac Unknown Unknown Verified 03/12/21 19:31 Home Medications Medication Instructions Recorded Confirmed Type albuterol sulfate 5 mg/mL(0.5 %) 2.5 mg INHALATION Q4 PRN 09/16/18 03/12/21 History solution for nebulization aspirin 81 mg tablet,delayed 81 mg PO QAM 09/16/18 03/12/21 History release atorvastatin 40 mg tablet 40 mg PO QPM 09/16/18 03/12/21 History calcium carbonate-vitamin D3 600 1 cap PO QAM 09/16/18 03/12/21 History mg calcium-200 unit capsule (Calcium 600 + D(3)) loratadine 10 mg tablet 10 mg PO QAM PRN 09/16/18 03/12/21 History hydralazine 100 mg tablet 100 mg PO BID 04/19/19 03/12/21 History amlodipine 10 mg tablet 10 mg PO QAM 10/10/20 03/12/21 History carvedilol 3.125 mg tablet 3.125 mg PO BID 10/10/20 03/12/21 History ascorbic acid (vitamin C) 500 mg 500 mg PO QAM 12/10/20 03/12/21 History tablet (Vitamin C) multivitamin 1 tab PO DAILY 12/10/20 03/12/21 History B-complex with vitamin C 1 tab PO QAM 02/17/21 03/12/21 History furosemide 20 mg tablet 20 mg PO QAM 02/17/21 03/12/21 History hydrochlorothiazide 50 mg tablet 50 mg PO QAM 02/17/21 03/12/21 History dexlansoprazole 60 mg 60 mg PO DAILY 03/12/21 03/12/21 History capsule,biphase delayed release (Dexilant) Patient History Medical History Anemia Cardiac murmur "Since I was born and never given me trouble" ECHO from 2018- shows only mild AV sclerosis Carotid stenosis, left Left carotid endarterectomy 11/[address] [facility] [address] Love Chronic back pain Chronic kidney disease, stage 4 (severe) Chronic obstructive pulmonary disease inhaler/nebulizer prn GERD (gastroesophageal reflux disease) Gout hx Hyperlipidemia Hypertension Mesenteric artery stenosis Peripheral arterial disease Renal artery stenosis Surgical History History of bilateral cataract extraction History of carotid endarterectomy (12/10/20) [facility] with Dr Love History of carpal tunnel release of both wrists History of cholecystectomy History of colonoscopy with polypectomy History of esophagogastroduodenoscopy (EGD) History of laminectomy History of repair of right rotator cuff History of tooth extraction all teeth removed Family History Mother Family history of diabetes mellitus Brother Family history of diabetes mellitus Sister Family history of diabetes mellitus Other No family history of adverse response to anesthesia Social History Smoking Status: Current every day smoker Tobacco Type: Cigarettes Cigarettes Per Day: 20; Second Hand Exposure: Yes; Hx Alcohol Use: No Hx Substance Use: No Preferred Language: [place] Communication Ability: Effective Composition Roll Maker And Cutter Required: No Beliefs That Will Affect Care: None marital status: Current Living Situation: Alone How many Children do You have: 2 Feels Safe at Home: Yes Safety Concerns: Feels Safe At This Time Assistive Devices: Walker Review of Systems Review of Systems: All systems reviewed & are unremarkable except as noted in Subjective Physical Exam Constitutional: WD/WN, vitals as above Eyes: PERRL, conjunctivae normal, anicteric sclerae ENMT: external ear and nose normal, oropharynx normal Respiratory: normal respiratory effort, lungs clear to auscultation Cardiovascular: RRR, no murmur, no edema Gastrointestinal (Abdomen): Inspection/Auscultation: abdomen normal to inspection and normal bowel sounds; abdomen not distended Percussion/Palpation: + abdomen tender (epigastric) and abdomen soft; no guarding and abdomen not rigid Psychiatric: A+Ox3, euthymic affect Affect: + flat affect Results & Data ([facility]) Vital Signs (Past 12 Hours) Vital Signs Temp Pulse Pulse Resp BP BP Pulse Ox 03/13/21 08:32 36.8 C 65 18 150/69 H 03/13/21 08:20 36.8 C 66 18 151/65 H 03/13/21 07:49 36.7 C 64 18 177/62 H 93 03/13/21 06:20 36.7 C 66 20 175/76 H 94 03/13/21 05:28 78 20 92 03/13/21 05:00 60 15 152/93 H 03/13/21 04:00 63 19 171/61 H 03/13/21 03:00 60 13 167/74 H 03/13/21 02:00 65 19 165/75 H 03/13/21 01:27 172/87 H 96 03/13/21 00:54 03/13/21 00:43 63 186/61 H 99 03/13/21 00:42 63 20 186/61 H 98 03/12/21 23:32 37.0 C 66 20 160/62 H 96 03/12/21 22:20 37.0 C 62 18 158/57 H 95 03/12/21 21:50 37.2 C 63 20 173/60 H 97 03/12/21 21:20 37.0 C 64 18 177/74 H 97 03/12/21 21:05 37.0 C 68 18 150/48 H 96 03/12/21 20:50 37.0 C 66 18 114/67 94 Pulse Ox 03/13/21 08:32 03/13/21 08:20 03/13/21 07:49 03/13/21 06:20 03/13/21 05:28 03/13/21 05:00 03/13/21 04:00 03/13/21 03:00 03/13/21 02:00 03/13/21 01:27 03/13/21 00:54 96 03/13/21 00:43 03/13/21 00:42 03/12/21 23:32 03/12/21 22:20 03/12/21 21:50 03/12/21 21:20 03/12/21 21:05 03/12/21 20:50 Laboratory Results Laboratory Results - last 24 hr 03/12/21 03/12/21 03/12/21 17:46 17:46 17:46 WBC 9.24 RBC 2.76 L Hgb 7.4 L Hct 23.8 L MCV 86.2 MCH 26.8 MCHC 31.1 L RDW Std Deviation 59.5 H RDW Coeff of Kris 18.9 H Plt Count 340 MPV 8.9 Immature Gran % (Auto) Neut % (Auto) Lymph % (Auto) [place] % (Auto) Eos % (Auto) Baso % (Auto) Neut # (Auto) Lymph # (Auto) [place] # (Auto) Eos # (Auto) Baso # (Auto) Immature Gran # (Auto) RBC Morphology PT 9.8 INR 1.0 APTT 27.3 PTT Ratio 1.0 Sodium Potassium Chloride Carbon Dioxide Anion Gap BUN Creatinine Est Cr Clr Drug Dosing Est GFR ( Amer) Est GFR (Non-Af Amer) BUN/Creatinine Ratio Glucose Estimat Average Glucose Hemoglobin A1c Calcium Phosphorus Magnesium Total Bilirubin AST ALT Alkaline Phosphatase Troponin I Total Protein Albumin Globulin Albumin/Globulin Ratio TSH Urine Color Urine Appearance Urine pH Ur Specific Farner Urine Protein Urine Glucose (UA) Urine Ketones Urine Blood Urine Nitrite Urine Bilirubin Urine Urobilinogen Ur Leukocyte Esterase Urine WBC (Auto) Urine RBC (Auto) U Hyaline Cast (Auto) U Epithel Cells (Auto) Urine Bacteria (Auto) COVID-19 Eval Order SARS-CoV-2 (PCR) Blood Type O Positive Antibody Screen NEGATIVE Crossmatch See Detail 03/12/21 03/12/21 03/12/21 17:46 17:46 17:46 WBC RBC Hgb Hct MCV MCH MCHC RDW Std Deviation RDW Coeff of Kris Plt Count MPV Immature Gran % (Auto) Neut % (Auto) Lymph % (Auto) [place] % (Auto) Eos % (Auto) Baso % (Auto) Neut # (Auto) Lymph # (Auto) [place] # (Auto) Eos # (Auto) Baso # (Auto) Immature Gran # (Auto) RBC Morphology PT INR APTT PTT Ratio Sodium 133 L Potassium 4.1 Chloride 100 Carbon Dioxide 26 Anion Gap 7.0 BUN 74 H Creatinine 3.67 H Est Cr Clr Drug Dosing Not Reportable Est GFR ( Amer) 13.2 Est GFR (Non-Af Amer) 11.4 BUN/Creatinine Ratio 20.0 Glucose 120 H Estimat Average Glucose 103 Hemoglobin A1c 5.2 Calcium 8.6 Phosphorus 5.2 H Magnesium 4.1 H Total Bilirubin 0.3 AST 15 ALT 13 Alkaline Phosphatase 131 H Troponin I < 0.015 Total Protein 6.8 Albumin 3.2 L Globulin 3.6 Albumin/Globulin Ratio 0.9 TSH 3.390 Urine Color Urine Appearance Urine pH Ur Specific Farner Urine Protein Urine Glucose (UA) Urine Ketones Urine Blood Urine Nitrite Urine Bilirubin Urine Urobilinogen Ur Leukocyte Esterase Urine WBC (Auto) Urine RBC (Auto) U Hyaline Cast (Auto) U Epithel Cells (Auto) Urine Bacteria (Auto) COVID-19 Eval Order SARS-CoV-2 (PCR) Blood Type Antibody Screen Crossmatch 03/12/21 03/12/21 03/12/21 21:12 21:12 21:27 WBC RBC Hgb Hct MCV MCH MCHC RDW Std Deviation RDW Coeff of Kris Plt Count MPV Immature Gran % (Auto) Neut % (Auto) Lymph % (Auto) Summit % (Auto) Eos % (Auto) Baso % (Auto) Neut # (Auto) Lymph # (Auto) [place] # (Auto) Eos # (Auto) Baso # (Auto) Immature Gran # (Auto) RBC Morphology PT INR APTT PTT Ratio Sodium Potassium Chloride Carbon Dioxide Anion Gap BUN Creatinine Est Cr Clr Drug Dosing Est GFR ( Amer) Est GFR (Non-Af Amer) BUN/Creatinine Ratio Glucose Estimat Average Glucose Hemoglobin A1c Calcium Phosphorus Magnesium Total Bilirubin AST ALT Alkaline Phosphatase Troponin I Total Protein Albumin Globulin Albumin/Globulin Ratio TSH Urine Color Yellow Urine Appearance Clear Urine pH 7.0 Ur Specific Farner 1.009 Urine Protein 2+ H Urine Glucose (UA) Negative Urine Ketones Negative Urine Blood Negative Urine Nitrite Negative Urine Bilirubin Negative Urine Urobilinogen Negative Ur Leukocyte Esterase Negative Urine WBC (Auto) 1-5 Urine RBC (Auto) 0-4 U Hyaline Cast (Auto) 1-5 U Epithel Cells (Auto) >30 H Urine Bacteria (Auto) Negative COVID-19 Eval Order Covid19 at [facility] SARS-CoV-2 (PCR) NEGATIVE Blood Type Antibody Screen Crossmatch 03/13/21 03/13/21 05:11 05:11 WBC 8.20 RBC 2.76 L Hgb 7.5 L Hct 23.3 L MCV 84.4 MCH 27.2 MCHC 32.2 RDW Std Deviation 55.8 H RDW Coeff of Kris 18.0 H Plt Count 311 MPV 9.2 Immature Gran % (Auto) 0.2 Neut % (Auto) 67.3 Lymph % (Auto) 22.4 Summit % (Auto) 6.5 Eos % (Auto) 3.0 Baso % (Auto) 0.6 Neut # (Auto) 5.51 Lymph # (Auto) 1.84 Summit # (Auto) 0.53 Eos # (Auto) 0.25 Baso # (Auto) 0.05 Immature Gran # (Auto) 0.02 RBC Morphology Unremarkable PT INR APTT PTT Ratio Sodium 136 Potassium 3.9 Chloride 103 Carbon Dioxide 25 Anion Gap 8.0 BUN 74 H Creatinine 3.44 H Est Cr Clr Drug Dosing 16.4 Est GFR ( Amer) 14.2 Est GFR (Non-Af Amer) 12.3 BUN/Creatinine Ratio 21.4 H Glucose 91 Estimat Average Glucose Hemoglobin A1c Calcium 8.4 L Phosphorus Magnesium Total Bilirubin AST ALT Alkaline Phosphatase Troponin I Total Protein Albumin Globulin Albumin/Globulin Ratio TSH Urine Color Urine Appearance Urine pH Ur Specific Farner Urine Protein Urine Glucose (UA) Urine Ketones Urine Blood Urine Nitrite Urine Bilirubin Urine Urobilinogen Ur Leukocyte Esterase Urine WBC (Auto) Urine RBC (Auto) U Hyaline Cast (Auto) U Epithel Cells (Auto) Urine Bacteria (Auto) COVID-19 Eval Order SARS-CoV-2 (PCR) Blood Type Antibody Screen Crossmatch
--- NOTE | 2021-03-13 12:04 | Anesthesiology Consultation ---
Date of Service March 13, 2021 Assessment & Plan (1) Encounter for pre-operative examination: Chart Review Chart Review: Acceptable Risk for Surgery and Patient NOT seen in Pre Admission Testing History Surgery Operation Date: 03/13/21 16:15 Proposed Procedures p Colonoscopy Dr. Zo Pathak MD Height/Weight Height: 5 ft 6 in Weight: 97.3 kg Allergies Allergy/AdvReac Type Severity Reaction Status Date / Time Bactrim Allergy Severe ELEVATED Verified 08/15/13 14:34 POTASSIUM, BRADYCARDIC "HEART TRIED TO SHUT DOWN" sulfamethoxazole Allergy Severe ELEVATED Verified 03/12/21 19:31 POTASSIUM, BRADYCARDIC "HEART TRIED TO SHUT DOWN" trimethoprim Allergy Severe ELEVATED Verified 03/12/21 19:31 POTASSIUM, BRADYCARDIC "HEART TRIED TO SHUT DOWN" gabapentin Allergy Intermediate HALLUCINATIONS; Verified 03/12/21 19:31 SCREAMING/YELLING codeine Allergy Mild RASH, Verified 03/12/21 19:31 RAPID HEART BEAT hydromorphone [From Dilaudid] AdvReac Mild Hallucinati Verified 03/12/21 19:31 ng morphine AdvReac Unknown Unknown Verified 03/12/21 19:31 oxycodone [From Percocet] AdvReac Unknown Unknown Verified 03/12/21 19:31 Medications Home Medications Medication Instructions Recorded Confirmed Last Taken albuterol sulfate 5 mg/mL(0.5 %) 2.5 mg INHALATION Q4 PRN 09/16/18 03/12/21 11/22/18 solution for nebulization aspirin 81 mg tablet,delayed 81 mg PO QAM 09/16/18 03/12/21 03/12/21 release atorvastatin 40 mg tablet 40 mg PO QPM 09/16/18 03/12/21 03/11/21 calcium carbonate-vitamin D3 600 1 cap PO QAM 09/16/18 03/12/21 03/12/21 mg calcium-200 unit capsule (Calcium 600 + D(3)) loratadine 10 mg tablet 10 mg PO QAM PRN 09/16/18 03/12/21 05/26/19 hydralazine 100 mg tablet 100 mg PO BID 04/19/19 03/12/21 03/12/21 amlodipine 10 mg tablet 10 mg PO QAM 10/10/20 03/12/21 03/12/21 carvedilol 3.125 mg tablet 3.125 mg PO BID 10/10/20 03/12/21 03/12/21 ascorbic acid (vitamin C) 500 mg 500 mg PO QAM 12/10/20 03/12/21 03/12/21 tablet (Vitamin C) multivitamin 1 tab PO DAILY 12/10/20 03/12/21 03/12/21 B-complex with vitamin C 1 tab PO QAM 02/17/21 03/12/21 03/12/21 furosemide 20 mg tablet 20 mg PO QAM 02/17/21 03/12/21 03/12/21 hydrochlorothiazide 50 mg tablet 50 mg PO QAM 02/17/21 03/12/21 03/12/21 dexlansoprazole 60 mg 60 mg PO DAILY 03/12/21 03/12/21 03/12/21 capsule,biphase delayed release (Dexilant) Active Medications Generic Name Dose Route Start Last Admin Trade Name Freq PRN Reason Stop Dose Admin Amlodipine Besylate 10 mg 03/13/21 09:00 03/13/21 07:34 Amlodipine Besylate 5 Mg Tab PO 04/12/21 08:59 10 mg QAM EVON Administration Carvedilol 3.125 mg 03/13/21 09:00 03/13/21 07:33 Carvedilol 3.125 Mg Tab PO 04/12/21 08:59 3.125 mg BID EVON Administration Hydralazine HCl 100 mg 03/13/21 00:54 03/13/21 07:33 Hydralazine Tab 50 Mg Tab PO 04/12/21 00:53 100 mg BID EVON Administration Miscellaneous 1 ea 03/13/21 08:59 03/13/21 07:33 Remove Nicoderm Patch N/A 04/12/21 08:58 1 ea [id number] EVON Administration Multivitamins 1 tab 03/13/21 09:00 03/13/21 07:33 Multivitamin Tab PO 04/12/21 08:59 1 tab DAILY EVON Administration Nicotine 21 mg 03/12/21 22:23 03/13/21 01:30 Nicotine 21 Mg/24 Hr Tdsy TD 04/11/21 22:22 21 mg QAM EVON Administration Pantoprazole Sodium 40 mg 03/13/21 09:00 03/13/21 07:34 Pantoprazole 40 Mg Tab PO 04/12/21 08:59 40 mg DAILY EVON Administration Vitamin B Complex 1 tab 03/13/21 09:00 03/13/21 07:33 Vitamin B Complex Tab PO 04/12/21 08:59 1 tab QAM EVON Administration Past Medical History Medical History Anemia Cardiac murmur "Since I was born and never given me trouble" ECHO from 2018- shows only mild AV sclerosis Carotid stenosis, left Left carotid endarterectomy 11/2020 [facility] with Dr Love Chronic back pain Chronic kidney disease, stage 4 (severe) Chronic obstructive pulmonary disease inhaler/nebulizer prn GERD (gastroesophageal reflux disease) Gout hx Hyperlipidemia Hypertension Mesenteric artery stenosis Peripheral arterial disease Renal artery stenosis Past Family History Family History Mother Family history of diabetes mellitus Brother Family history of diabetes mellitus Sister Family history of diabetes mellitus Other No family history of adverse response to anesthesia Past Surgical History Surgical History History of bilateral cataract extraction History of carotid endarterectomy (12/10/20) [facility] with Dr Love History of carpal tunnel release of both wrists History of cholecystectomy History of colonoscopy with polypectomy History of esophagogastroduodenoscopy (EGD) History of laminectomy History of repair of right rotator cuff History of tooth extraction all teeth removed Social History Smoking Status: Current every day smoker tobacco type: cigarettes Smoking cigarettes per day: 20 Hx Alcohol Use: No Alcohol type: wine alcohol intake frequency: holidays/special occasions only Hx Substance Use: No substance use type: does not use Physical Exam Vital Signs Last Vital Signs Temp 36.7 C 03/13/21 11:20 Pulse 65 03/13/21 11:20 Resp 18 03/13/21 11:20 BP 159/60 H 03/13/21 11:20 Pulse Ox 95 03/13/21 10:22 Testing Laboratory Results 03/13/21 05:11 03/13/21 05:11 PT 9.8 Seconds (9.0-12.0) 03/12/21 17:46 INR 1.0 (0.9-1.1) 03/12/21 17:46 APTT 27.3 Seconds (21.0-31.0) 03/12/21 17:46 Hemoglobin A1c 5.2 % (4.5-5.6) 03/12/21 17:46 Urine Color Yellow 03/12/21 21: Urine Appearance Clear (Clear) 03/12/21 21: Urine pH 7.0 (4.5-7.5) 03/12/21 21: Ur Specific [place] 1.009 (1.000-1.030) 03/12/21 21: Urine Protein 2+ (Negative) H 03/12/21 21: Urine Glucose (UA) Negative (Negative) 03/12/21 21: Urine Ketones Negative (Negative) 03/12/21 21: Urine Nitrite Negative (Negative) 03/12/21 21: Ur Leukocyte Esterase Negative (Negative) 03/12/21 21: Urine WBC (Auto) 1-5 /hpf (0-5) 03/12/21 21: Urine RBC (Auto) 0-4 /hpf (0-4) 03/12/21 21: U Hyaline Cast (Auto) 1-5 /lpf (0-5) 03/12/21 21: U Epithel Cells (Auto) >30 /lpf (0-5) H 03/12/21 21: Urine Bacteria (Auto) Negative (Negative) 03/12/21 21: Blood Type O Positive 03/12/21 17:46 Antibody Screen NEGATIVE 03/12/21 17:46 Electrocardiogram Date: 03/12/21 Sinus rhythm with 1st degree A-V block Low voltage QRS Borderline ECG When compared with ECG of 28-FEB-2021 11:44, CA interval has increased Nonspecific T wave abnormality now evident in Inferior leads Chest X-Ray Date: 03/12/21 IMPRESSION: Mild cardiomegaly. Subtle nonspecific interstitial thickening.
[2021-03-13 12:25] LABS: Hematocrit (blood only) 26.8 % (37-47); Hemoglobin 8.5 g/dL (12.0-16.0)
--- NOTE | 2021-03-13 13:30 | Electrocardiogram Report ---
Test Reason : Blood Pressure : / mmHG Vent. Rate : 065 BPM Atrial Rate : 065 BPM P-R Int : 268 ms QRS Dur : 086 ms QT Int : 454 ms P-R-T Axes : 080 019 050 degrees QTc Int : 472 ms Poor data quality, interpretation may be adversely affected Sinus rhythm with 1st degree A-V block Low voltage QRS Borderline ECG When compared with ECG of 28-FEB-2021 11:44, DC interval has increased Confirmed by Rony Marques ([id number]) on 03/13/2021 1:29:36 PM Referred By: REFERRED SELF Confirmed By:Rony Marques
[2021-03-13] MEDS ORDERED: LORazepam 0.5 MG TAB PO STA (14:07)
--- NOTE | 2021-03-13 14:07 | Hospitalist Progress Note ---
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 Currently patient is getting PRBC transfusion. Appreciate GI input. Plan for enteroscopy later today. Patient remains NPO. Continue holding aspirin for now. Nicotine patch Continue chronic daily medications including Protonix, Lipitor, Coreg, hydralazine and multivitamins. Check hemoglobin A1c DVT prophylaxis. TEDS RE occult GI bleed, SCDs contraindicated with history LE PAD Full code Admission and Anticipated Discharge Date Admission Date: March 12, 2021 Subjective She reports she feels weak and short of breath. Denies any chest pain, palpitations or dizziness. Denies any abdominal pain, diarrhea or dysuria. The review of system is negative. Review of Systems Review of Systems: All systems reviewed & are unremarkable except as noted in HPI & below Physical Exam Physical Exam: General: A&Ox3 HENT: NCAT, MMM, EOMI Eyes: PERRLA Neck: Supple, normal range of motion CVS: normal rate and rhythm Resp: b/l good Breath sounds Abdomen: Soft, ND/NT Extremities: No c/c/e Neuro: face symmetric, no gross focal deficits the patient Skin: warm and dry, no rashes/lesions/errythema MSK: normal ROM, no joint swelling/erythema Results & Data Results & Data ([facility]) Vital Signs (Past 12 Hours) Vital Signs Temp Pulse Pulse Resp BP BP Pulse Ox 03/13/21 11:20 36.7 C 65 18 159/60 H 03/13/21 10:22 36.7 C 65 18 193/68 H 95 03/13/21 09:50 36.8 C 67 18 160/54 H 03/13/21 09:20 36.6 C 60 18 152/64 H 98 03/13/21 08:37 36.8 C 63 18 151/63 H 96 03/13/21 08:32 36.8 C 65 18 150/69 H 03/13/21 08:20 36.8 C 66 18 151/65 H 03/13/21 07:49 36.7 C 64 18 177/62 H 93 03/13/21 06:20 36.7 C 66 20 175/76 H 94 03/13/21 05:28 78 20 92 03/13/21 05:00 60 15 152/93 H 03/13/21 04:00 63 19 171/61 H 03/13/21 03:00 60 13 167/74 H
[2021-03-13] MEDS ORDERED: PROPOFOL IV EMULSION 10 MG/ML 20 ML VIAL IV ONE ×3 (14:48→16:49)
[2021-03-13] MEDS ORDERED: LIDOCAINE 2% 2 ML VIAL/AMP(20MG/ML) INFIL ONE ×2 (14:48→15:53)
[2021-03-13] MEDS ORDERED: ALBUT/IPRATROP 3MG/0.5MG NEB 3 ML VIAL NEB STA (14:54)
[2021-03-13] MEDS ORDERED: KETAMINE 50 MG/5 ML SYRINGE ONE (15:43)
[2021-03-13] MEDS ORDERED: BENZOCAINE/TETRACAIN/BUTAM 50 APPLN/5 GM CAN EXT ONE (15:43)
--- NOTE | 2021-03-13 15:50 | History & Physical Report ---
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 Plan EGD with enteroscopy and cautery of AVMs if detected. Discussed with the patient, all questions answered and consent obtained. Admission and Anticipated Discharge Date Admission Date: March 12, 2021 History of Present Illness Chief Complaint: Symptomatic blood loss anemia Primary Care Provider: Gabbie Hunter PA-C 76 yo woman admitted with profound symptomatic blood loss anemia, past history of bleeding duodenal AVMs cauterized in the past. She denies any history of melena, hematochezia Allergies Allergy/AdvReac Type Severity Reaction Status Date / Time Bactrim Allergy Severe ELEVATED Verified 08/15/13 14:34 POTASSIUM, BRADYCARDIC "HEART TRIED TO SHUT DOWN" sulfamethoxazole Allergy Severe ELEVATED Verified 03/12/21 19:31 POTASSIUM, BRADYCARDIC "HEART TRIED TO SHUT DOWN" trimethoprim Allergy Severe ELEVATED Verified 03/12/21 19:31 POTASSIUM, BRADYCARDIC "HEART TRIED TO SHUT DOWN" gabapentin Allergy Intermediate HALLUCINATIONS; Verified 03/12/21 19:31 SCREAMING/YELLING codeine Allergy Mild RASH, Verified 03/12/21 19:31 RAPID HEART BEAT hydromorphone [From Dilaudid] AdvReac Mild Hallucinati Verified 03/12/21 19:31 ng morphine AdvReac Unknown Unknown Verified 03/12/21 19:31 oxycodone [From Percocet] AdvReac Unknown Unknown Verified 03/12/21 19:31 Home Medications Medication Instructions Recorded Confirmed Type albuterol sulfate 5 mg/mL(0.5 %) 2.5 mg INHALATION Q4 PRN 09/16/18 03/12/21 History solution for nebulization aspirin 81 mg tablet,delayed 81 mg PO QAM 09/16/18 03/12/21 History release atorvastatin 40 mg tablet 40 mg PO QPM 09/16/18 03/12/21 History calcium carbonate-vitamin D3 600 1 cap PO QAM 09/16/18 03/12/21 History mg calcium-200 unit capsule (Calcium 600 + D(3)) loratadine 10 mg tablet 10 mg PO QAM PRN 09/16/18 03/12/21 History hydralazine 100 mg tablet 100 mg PO BID 04/19/19 03/12/21 History amlodipine 10 mg tablet 10 mg PO QAM 10/10/20 03/12/21 History carvedilol 3.125 mg tablet 3.125 mg PO BID 10/10/20 03/12/21 History ascorbic acid (vitamin C) 500 mg 500 mg PO QAM 12/10/20 03/12/21 History tablet (Vitamin C) multivitamin 1 tab PO DAILY 12/10/20 03/12/21 History B-complex with vitamin C 1 tab PO QAM 02/17/21 03/12/21 History furosemide 20 mg tablet 20 mg PO QAM 02/17/21 03/12/21 History hydrochlorothiazide 50 mg tablet 50 mg PO QAM 02/17/21 03/12/21 History dexlansoprazole 60 mg 60 mg PO DAILY 03/12/21 03/12/21 History capsule,biphase delayed release (Dexilant) Past Med/Surg History Medical History Anemia Cardiac murmur "Since I was born and never given me trouble" ECHO from 2018- shows only mild AV sclerosis Carotid stenosis, left Left carotid endarterectomy 11/2020 [facility] with Dr Love Chronic back pain Chronic kidney disease, stage 4 (severe) Chronic obstructive pulmonary disease inhaler/nebulizer prn GERD (gastroesophageal reflux disease) Gout hx Hyperlipidemia Hypertension Mesenteric artery stenosis Peripheral arterial disease Renal artery stenosis Surgical History History of bilateral cataract extraction History of carotid endarterectomy (12/10/20) [facility] with Dr Love History of carpal tunnel release of both wrists History of cholecystectomy History of colonoscopy with polypectomy History of esophagogastroduodenoscopy (EGD) History of laminectomy History of repair of right rotator cuff History of tooth extraction all teeth removed Family History Mother Family history of diabetes mellitus Brother Family history of diabetes mellitus Sister Family history of diabetes mellitus Other No family history of adverse response to anesthesia Social History Smoking Status: Current every day smoker Tobacco Type: Cigarettes Cigarettes Per Day: 20; Second Hand Exposure: Yes; Hx Alcohol Use: No Hx Substance Use: No Preferred Language: Arabic Communication Ability: Effective Motorcycle Mechanic Required: No Beliefs That Will Affect Care: None marital status: Current Living Situation: Alone How many Children do You have: 2 Feels Safe at Home: Yes Safety Concerns: Feels Safe At This Time Assistive Devices: Walker Review of Systems All systems reviewed & are unremarkable except as noted in HPI & below Physical Exam Constitutional: Obese, in no distress at rest Respiratory: normal respiratory effort, lungs clear to auscultation Cardiovascular: Normal rate and rhythm with systolic murmur noted Gastrointestinal (Abdomen): Obese abdomen with no localized tenderness or masses Neurologic: Alert and cooperative with no focal neurologic signs ASA Classification ASA ASA3 Results & Data ([facility]) Vital Signs (Past 12 Hours) Vital Signs Temp Pulse Pulse Resp BP BP Pulse Ox 03/13/21 15:05 68 18 95 03/13/21 14:38 36.8 C 66 18 173/67 H 95 03/13/21 11:20 36.7 C 65 18 159/60 H 03/13/21 10:22 36.7 C 65 18 193/68 H 95 03/13/21 09:50 36.8 C 67 18 160/54 H 03/13/21 09:20 36.6 C 60 18 152/64 H 98 03/13/21 08:37 36.8 C 63 18 151/63 H 96 03/13/21 08:32 36.8 C 65 18 150/69 H 03/13/21 08:20 36.8 C 66 18 151/65 H 03/13/21 07:49 36.7 C 64 18 177/62 H 93 03/13/21 06:20 36.7 C 66 20 175/76 H 94 03/13/21 05:28 78 20 92 03/13/21 05:00 60 15 152/93 H 03/13/21 04:00 63 19 171/61 H Code Status & VTE Plan VTE Prophylaxis Plan VTE Prophylaxis will be ordered: Yes
[2021-03-13] MEDS ORDERED: ePHEDrine sulfate 50 MG/ML SYR ONE (16:49)
[2021-03-13] MEDS ORDERED: PHENYLEPHRINE 100MCG/ML 5ML SYR ONE (16:49)
--- NOTE | 2021-03-13 16:53 | GI REPORT ---
Patient Name: Toña Chapin Procedure Date: 03/13/2021 2:51 PM Date of : 1945 Admit Type: Inpatient Age: 76 Gender: Female Attending MD: Raz Pathak MD Procedure: Small bowel enteroscopy Providers: Raz Pathak MD Referring MD: Karoline Car Md Indications: Gastrointestinal bleeding source not documented by other exams Medicines: Monitored Anesthesia Care Complications: No immediate complications. Estimated Blood Loss: Estimated blood loss was minimal. Procedure: Pre-Anesthesia Assessment: - Prior to the procedure, a History and Physical was performed, and patient medications and allergies were reviewed. The patient is competent. The risks and benefits of the procedure and the sedation options and risks were discussed with the patient. All questions were answered and informed consent was obtained. Patient identification and proposed procedure were verified by the physician and the nurse in the pre-procedure area. Mental Status Examination: alert and oriented. Airway Examination: normal oropharyngeal airway and neck mobility. Respiratory Examination: clear to auscultation. CV Examination: systolic murmur. Prophylactic Antibiotics: The patient does not require prophylactic antibiotics. Prior Anticoagulants: The patient has taken no previous anticoagulant or antiplatelet agents except for aspirin. ASA Grade Assessment: IV - A patient with severe systemic disease that is a constant threat to life. After reviewing the risks and benefits, the patient was deemed in satisfactory condition to undergo the procedure. The anesthesia plan was to use monitored anesthesia care (MAC). Immediately prior to administration of medications, the patient was re-assessed for adequacy to receive sedatives. The heart rate, respiratory rate, oxygen saturations, blood pressure, adequacy of pulmonary ventilation, and response to care were monitored throughout the procedure. The physical status of the patient was re-assessed after the procedure. After obtaining informed consent, the endoscope was passed under direct vision. Throughout the procedure, the patient's blood pressure, pulse, and oxygen saturations were monitored continuously. The Colonoscope was introduced through the mouth and advanced to the proximal jejunum. The small bowel enteroscopy was technically difficult and complex. The patient tolerated the procedure fairly well. 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 Coagulation for bleeding prevention using argon plasma at 0.3 liters/minute and 20 pina was successful. Estimated blood loss was minimal. Patchy erythematous mucosa without active bleeding and with no stigmata of bleeding was found in the duodenal bulb. brown flecks of adherent old blood and mucus was found scattered in the gastric fundus andbody with associated mucosal erythema but no visible erosions or ulcerations detected. Old blood was detected in the stomach only, not the duodenum or proximal jejunum.. Estimated blood loss: none. A medium-sized hiatal hernia was present. 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 Treated with argon plasma coagulation (APC). - Erythematous duodenopathy. - In the gastric fundus. - Medium-sized hiatal hernia. - No specimens collected. Recommendation: - [facility]. MD Raz Hinojosa MD 03/13/2021 4:52:51 PM This report has been signed electronically. Note Initiated On: 03/13/2021 2:51 PM Number of Addenda: 0 I attest to the content of the Intraoperative Record and orders documented therein, exceptions below {[id number]}
--- NOTE | 2021-03-13 16:55 | Post Operative Brief Note ---
Immediate Post Op Note v1 Date of Surgery March 13, 2021 Pre & Post Diagnosis Operation Date: 03/13/21 16:15 Pre-Op Diagnosis: SYMPTOMATIC ANEMIA, OCCULT GI BLEED Post-Op Diagnosis: hemorrhagic gastritis, jejunal AVM's I identified the patient and participated in the time-out.: Yes Procedure Operation Date: 03/13/21 16:15 Actual Procedures p Small Bowel Enteroscopy Hemostasis - Raz Pathak MD Surgeon Raz Pathak MD Acetylene Gas Compressor none Estimated Blood Loss 0 Findings Consistent with Post-Op Diagnosis 3 nonbleeding proximal jejunal AVMs identified and cauterized with argon plasma coagulation. Hemorrhagic gastritis with flecks of old blood present in the fundus and body of the stomach, moderate hiatal hernia without bleeding
--- NOTE | 2021-03-13 17:10 | Anesthesiology Progress Note ---
Date of Service March 13, 2021 Anesthesia Post Procedure Vital Signs Vital Signs: Temp Pulse Pulse Resp BP BP Pulse Ox 03/13/21 17:05 67 18 151/55 H 97 03/13/21 16:50 63 20 125/40 L 96 03/13/21 15:05 68 18 95 03/13/21 14:38 36.8 C 66 18 173/67 H 95 03/13/21 11:20 36.7 C 65 18 159/60 H 03/13/21 10:22 36.7 C 65 18 193/68 H 95 03/13/21 09:50 36.8 C 67 18 160/54 H 03/13/21 09:20 36.6 C 60 18 152/64 H 98 03/13/21 08:37 36.8 C 63 18 151/63 H 96 03/13/21 08:32 36.8 C 65 18 150/69 H 03/13/21 08:20 36.8 C 66 18 151/65 H 03/13/21 07:49 36.7 C 64 18 177/62 H 93 03/13/21 06:20 36.7 C 66 20 175/76 H 94 03/13/21 05:28 78 20 92 03/13/21 05:00 60 15 152/93 H 03/13/21 04:00 63 19 171/61 H 03/13/21 03:00 60 13 167/74 H 03/13/21 02:00 65 19 165/75 H 03/13/21 01:27 172/87 H 96 03/13/21 00:54 03/13/21 00:43 63 186/61 H 99 03/13/21 00:42 63 20 186/61 H 98 03/12/21 23:32 37.0 C 66 20 160/62 H 96 03/12/21 22:20 37.0 C 62 18 158/57 H 95 03/12/21 21:50 37.2 C 63 20 173/60 H 97 03/12/21 21:20 37.0 C 64 18 177/74 H 97 03/12/21 21:05 37.0 C 68 18 150/48 H 96 03/12/21 20:50 37.0 C 66 18 114/67 94 Pulse Ox 03/13/21 17:05 03/13/21 16:50 03/13/21 15:05 03/13/21 14:38 03/13/21 11:20 03/13/21 10:22 03/13/21 09:50 03/13/21 09:20 03/13/21 08:37 03/13/21 08:32 03/13/21 08:20 03/13/21 07:49 03/13/21 06:20 03/13/21 05:28 03/13/21 05:00 03/13/21 04:00 03/13/21 03:00 03/13/21 02:00 03/13/21 01:27 03/13/21 00:54 96 03/13/21 00:43 03/13/21 00:42 03/12/21 23:32 03/12/21 22:20 03/12/21 21:50 03/12/21 21:20 03/12/21 21:05 03/12/21 20:50 Transfer of Care Handoff Completed per policy Notes Mental Status: alert / awake / arousable and participated in evaluation Patient Amnestic to Procedure: Yes Nausea / Vomiting: adequately controlled Pain: adequately controlled Airway Patency, RR, SpO2: stable & adequate BP & HR: stable & adequate Hydration State: stable & adequate Anesthetic Complications: no major complications apparent
[2021-03-13] MEDS ORDERED: ONDANSETRON INJ 2 MG/ML 2 ML VIAL IV PRN (17:11)
[2021-03-13] MEDS: ATORVASTATIN 40 MG TAB PO SCH (20:52)
[2021-03-13] MEDS ORDERED: LORazepam 0.25 MG/0.5 ML VIAL IV PRN (21:12)
[2021-03-14] MEDS ORDERED: ALBUT/IPRATROP 3MG/0.5MG NEB 3 ML VIAL NEB STA (01:42)
[2021-03-14 06:42] LABS: Basophils # (auto) 0.07 K/uL (0-0.2); Basophils % (auto) 0.8 %; Eosinophils # (auto) 0.13 K/uL (0-0.5); Eosinophils % (auto) 1.4 %; Hematocrit (blood only) 27.5 % (37-47); Hemoglobin 8.7 g/dL (12.0-16.0); Immature Granulocytes # (auto) 0.02 K/uL (0.00-0.02); Immature Granulocytes % (auto) 0.2 %; Lymphocytes # (auto) 1.77 K/uL (1.2-3.4); Lymphocytes % (auto) 19.7 %; Mean Corpuscular Hemoglobin 27.4 pg (25-34); Mean Corpuscular Hgb Conc 31.6 g/dL (32-36); Mean Corpuscular Volume 86.8 fL (80-100); Mean Platelet Volume 8.8 fL (7.4-10.4); Monocytes # (auto) 0.58 K/uL (0.11-0.59); Monocytes % (auto) 6.4 %; Neutrophils # (auto) 6.43 K/uL (1.4-6.5); Neutrophils % (auto) 71.5 %; Platelet Count 283 K/uL (130-400); RDW Coefficient of Variation 18.1 % (11.5-14.5); RDW Standard Deviation 56.1 fL (36.4-46.3); Red Blood Count 3.17 M/uL (4.2-5.4)
[2021-03-14 07:10] LABS: BUN Creatinine Ratio 19.9 (10-20); Calcium 8.4 mg/dl (8.5-10.1); Creatinine Clr Calc Pharmacy 17.4 ml/min; Est GFR (African American) 15.4 ml/min; Est GFR (Non-African American) 13.3 ml/min; Potassium 3.9 mmol/L (3.5-5.1)
--- NOTE | 2021-03-14 08:10 | XRay Report ---
XR chest 1V portable HISTORY: cough COMPARISON: Chest 03/12/2021. FINDINGS: Cardiac silhouette remains mildly enlarged. Left basilar scarlike density persists. Otherwi se, the lungs are clear. No pleural effusions. No pneumothorax. IMPRESSION: Stable mild cardiomegaly. ACT 112: Negative or not required by law. Electronically signed by: Faisal Azul M.D. 03/14/2021 8:08 AM
[2021-03-14] MEDS ORDERED: COUGH DROP (SUGAR FREE) LOZ 24 LOZ/1 BOX BUCCAL PRN (08:51)
[2021-03-14] MEDS: hydrALAZINE TAB 50 MG TAB PO SCH ×2 (09:22→20:14)
[2021-03-14] MEDS: carvediloL 3.125 MG TAB PO SCH ×2 (09:22→20:14)
[2021-03-14] MEDS: VITAMIN B COMPLEX TAB PO SCH (09:22)
[2021-03-14] MEDS: PANTOprazole 40 MG TAB PO SCH (09:23)
[2021-03-14] MEDS: amLODIPine BESYLATE 5 MG TAB PO SCH (09:23)
[2021-03-14] MEDS: NICOTINE 21 MG/24 HR TDSY TD SCH (09:23)
[2021-03-14] MEDS: MULTIVITAMIN TAB PO SCH (09:23)
--- NOTE | 2021-03-14 12:35 | Gastroenterology Progress Note ---
Date of Service March 14, 2021 Assessment & Plan (1) Acute upper gastrointestinal bleeding: Plan: Upper GI bleeding: Upper endoscopy with deep enteroscopy performed 03/12/2021 with impression that this was a hemorrhagic gastritis as the source for GI blood loss in this case. Recommend acid suppression with PPI. Patient is on daily aspirin and high risk for endoscopic procedures. Cautery of AVMs was difficult due to tenuous respiratory status, patient movement, respiratory secretions, and coughing. Per Dr. Pathak, if enteroscopy needs to be repeated for additional cautery, it should be performed in the OR with general anesthesia, paralysis, endotracheal intubation. Continue general support and observation for bleeding. Would recommend supportive care and advance diet as tolerated. Will arrange outpatient follow-up through patient's daughter as requested. Please refer to supervising physician addendum for further recommendations. Admission and Anticipated Discharge Date Admission Date: March 12, 2021 Subjective Patient sleeping. Wakes easily with verbal stimuli. Alert and oriented x 4. States she is tired. Still feeling somewhat weak and shaky when she stands. Tolerating clear liquids. Wants to go home. Denies nausea or vomiting. Would like her daughter, Becky, called for scheduling of follow-up appointment. Review of Systems Review of Systems: All systems reviewed & are unremarkable except as noted in Subjective Physical Exam Gastrointestinal (Abdomen): Inspection/Auscultation: abdomen normal to inspection and normal bowel sounds; abdomen not distended Percussion/Palpation: + abdomen tender (epigastric) and abdomen soft; no guarding and abdomen not rigid Results & Data ([facility]) Vital Signs (Past 12 Hours) Vital Signs Temp Pulse Pulse Resp BP BP Pulse Ox 03/14/21 10:56 36.9 C 69 68 19 132/63 93 03/14/21 07:26 37.4 C 67 19 154/52 H 90 03/14/21 04:31 37.1 C 70 18 155/64 H 90 03/14/21 01:57 72 18 97 03/14/21 01:19 74 17 165/53 H 90 Laboratory Results Laboratory Results - last 24 hr 03/12/21 03/14/21 03/14/21 17:46 01:48 06:09 WBC 9.00 RBC 3.17 L Hgb 8.7 L Hct 27.5 L MCV 86.8 MCH 27.4 MCHC 31.6 L RDW Std Deviation 56.1 H RDW Coeff of Kris 18.1 H Plt Count 283 MPV 8.8 Immature Gran % (Auto) 0.2 Neut % (Auto) 71.5 Lymph % (Auto) 19.7 [place] % (Auto) 6.4 Eos % (Auto) 1.4 Baso % (Auto) 0.8 Neut # (Auto) 6.43 Lymph # (Auto) 1.77 [place] # (Auto) 0.58 Eos # (Auto) 0.13 Baso # (Auto) 0.07 Immature Gran # (Auto) 0.02 Sodium Potassium Chloride Carbon Dioxide Anion Gap BUN Creatinine Est Cr Clr Drug Dosing Est GFR ( Amer) Est GFR (Non-Af Amer) BUN/Creatinine Ratio Glucose POC Glucose 85 Calcium Blood Type O Positive Antibody Screen NEGATIVE Crossmatch See Detail 03/14/21 06:09 WBC RBC Hgb Hct MCV MCH MCHC RDW Std Deviation RDW Coeff of Kris Plt Count MPV Immature Gran % (Auto) Neut % (Auto) Lymph % (Auto) [place] % (Auto) Eos % (Auto) Baso % (Auto) Neut # (Auto) Lymph # (Auto) [place] # (Auto) Eos # (Auto) Baso # (Auto) Immature Gran # (Auto) Sodium 135 L Potassium 3.9 Chloride 104 Carbon Dioxide 24 Anion Gap 7.0 BUN 64 H Creatinine 3.23 H Est Cr Clr Drug Dosing 17.4 Est GFR ( Amer) 15.4 Est GFR (Non-Af Amer) 13.3 BUN/Creatinine Ratio 19.9 Glucose 70 POC Glucose Calcium 8.4 L Blood Type Antibody Screen Crossmatch Diagnostic Findings 03/12/2021: Small bowel enteroscopy demonstrated - 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 Treated with argon plasma coagulation (APC). - Erythematous duodenopathy in the gastric fundus. - Medium-sized hiatal hernia. - No specimens collected.
[2021-03-14] MEDS ORDERED: guaiFENesin/DEXTROM SYRUP 200MG/20MG 10ML UDC PO STA (15:10)
[2021-03-14] MEDS ORDERED: LORazepam 0.5 MG TAB PO PRN (15:10)
--- NOTE | 2021-03-14 15:25 | Hospitalist Progress Note ---
Date of Service March 14, 2021 Assessment & Plan (1) Anemia due to GI blood loss: Plan: h/o AVM requiring cautery, which was the case yesterday. She is doing well today, and per GI she will need ongoing PPI therapy while taking daily aspirin for secondary CAD prophylaxis. H/H and hemodynamics stable. Trend CBC in am (2) AVM (arteriovenous malformation): Plan: Hemorrhagic gastritis as the source for active bleeding. AVMs also cauterized although noted tenuous respiratory status during procedure. Cont PPI. Advance to soft diet. Outpatient follow-up with GI recommended. (3) Tobacco use disorder: Plan: chronic dialy smoker, currently reporting productive cough. She is not wheezing. She has no acute findings on CXR. Nebulized bronchodilator therapy overnight was problematic for her. Trial of benzonatate started, will add Robitussin PRN. (4) Bereavement due to life event: Plan: Recently lost her son last week. Currently anxious. Treating symptomatically with Ativan. Avoid IV formulation of benzo to avoid proven hypersomnolence. (5) Hypertension: Plan: restart HCTZ in am, origginally held on admisison in setting of bleeding. (6) DVT prophylaxis: Plan: SCDs, chemoprophy contraindicated in setting of anemia Full Code Dispo-dc telemetry, cont hospitalization in setting of concerning cough and an xiety. Savannah Gambino DO [facility] Hospitalist Admission and Anticipated Discharge Date Admission Date: March 12, 2021 Subjective 76 yo F presented with acute bleeding, s/p endoscopic catery of bleeding AVMs yesterday. She is hemodynamically stable and is asking for food. Tolerated clears this am. Recently lost her son last week and is clearly devastated from this. Anxiety is present. She reports concerns for new onset productive cough since procedure yesterday. CXR is negative. She is afebrile and has no hypoxia. She is an active smoker. Slightly less than half pack per day. Reports the nebulizer treatment overnight made her feel worse. Nurse reports the IV Ativan overnight caused her hypersomnolence. denies chest pain, bleeding Review of Systems Review of Systems: At least ten systems were reviewed and negative except as indicated in HPI above. Physical Exam Physical Exam: CONSTITUTIONAL: WNWD, vitals as above, generally anxious- appearing. EYES: normal conjunctivae, no scleral icterus ENT: external ear and nose normal, MMM NECK: trachea midline RESPIRATORY: clear to auscultation bilaterally, no crackles, rales or wheezes, normal respiratory effort CARDIOVASCULAR: regular rate and rhythm, 3/6 DEEP, no gallops or rubs, no JVD, no peripheral edema GASTROINTESTINAL: soft, nontender, ND, no guarding MUSCULOSKELETAL: strength 5/5 throughout, head is normocephalic and atraumatic SKIN: warm and dry NEUROLOGIC: CN 2-12 grossly intact,normal cognition, normal speech, no tremor, no gross focal deficits. PSYCHIATRIC: alert cooperative and oriented to person, place and time. +anxious, makes good eye contact, language grossly intact, recent and remote memory grossly intact. Results & Data Results & Data ([facility]) Vital Signs (Past 12 Hours) Vital Signs Temp Pulse Pulse Resp BP BP Pulse Ox 03/14/21 14:58 161/61 H 03/14/21 10:56 36.9 C 69 68 19 132/63 93 03/14/21 07:26 37.4 C 67 19 154/52 H 90 03/14/21 04:31 37.1 C 70 18 155/64 H 90 Laboratory Results Short CBC 03/14/21 Range/Units 06:09 WBC 9.00 (4.8-10.8) K/uL Hgb 8.7 L (12.0-16.0) g/dL Hct 27.5 L (37-47) % Plt Count 283 (130-400) K/uL BMP 03/14/21 06:09 Sodium 135 L Potassium 3.9 Chloride 104 Carbon Dioxide 24 BUN 64 H Creatinine 3.23 H Glucose 70 Calcium 8.4 L Diagnostic Findings Chest X-Ray 03/13/21 21:13 XR chest 1V portable HISTORY: cough COMPARISON: Chest 03/12/2021. FINDINGS: Cardiac silhouette remains mildly enlarged. Left basilar scarlike density persists. Otherwise, the lungs are clear. No pleural effusions. No pneumothorax. IMPRESSION: Stable mild cardiomegaly. ACT 112: Negative or not required by law. Electronically signed by: Faisal Azul M.D. 03/14/2021 8:08 AM Medications Administered Current Inpatient Medications Acetaminophen (Acetaminophen 325 Mg Tab) 650 mg PO Q4H PRN PRN Reason: Pain or Fever Stop: 04/12/21 00:53 Albuterol (Albut/Ipratrop 3mg/0.5mg Neb 3 Ml Vial) 3 ml NEB Q2H PRN PRN Reason: Wheezing Stop: 04/12/21 00:53 Amlodipine Besylate (Amlodipine Besylate 5 Mg Tab) 10 mg PO QAM [facility] Stop: 04/12/21 08:59 Last Admin: 03/14/21 09:23 Dose: 10 mg Documented by: Atorvastatin Calcium (Atorvastatin 40 Mg Tab) 40 mg PO QPM [facility] Stop: 04/12/21 20:59 Last Admin: 03/13/21 20:52 Dose: 40 mg Documented by: Benzonatate (Benzonatate 100 Mg Capsule) 100 mg PO TID [facility] Stop: 04/13/21 15:09 Carvedilol (Carvedilol 3.125 Mg Tab) 3.125 mg PO BID [facility] Stop: 04/12/21 08:59 Last Admin: 03/14/21 09:22 Dose: 3.125 mg Documented by: Guaifenesin/Dextromethorphan (Guaifenesin/Dextrom Syrup 200mg/20mg 10ml Udc) 10 ml PO Q6H PRN PRN Reason: Cough Stop: 04/13/21 20:59 Hydralazine HCl (Hydralazine Tab 50 Mg Tab) 100 mg PO BID [facility] Stop: 04/12/21 00:53 Last Admin: 03/14/21 09:22 Dose: 100 mg Documented by: Loratadine (Loratadine 10 Mg Tab) 10 mg PO QAM PRN PRN Reason: Allergy Symptoms Stop: 04/12/21 00:53 Lorazepam (Lorazepam 0.5 Mg Tab) 0.5 mg PO Q12H PRN PRN Reason: Anxiety Stop: 04/13/21 15:09 Menthol (Cough Drop (Sugar Free) Sakina 24 Sakina/1 Box) 1 sakina BUCCAL PRN PRN PRN Reason: Sore Throat Stop: 04/13/21 08:50 Last Admin: 03/14/21 09:21 Dose: 1 sakina Documented by: Miscellaneous (Remove Nicoderm Patch) 1 ea N/A DAILY@0859 [facility] Stop: 04/12/21 08:58 Last Admin: 03/14/21 09:24 Dose: Not Given Documented by: Multivitamins (Multivitamin Tab) 1 tab PO DAILY [facility] Stop: 04/12/21 08:59 Last Admin: 03/14/21 09:23 Dose: 1 tab Documented by: Nicotine (Nicotine 21 Mg/24 Hr Tdsy) 21 mg TD QAM [facility] Stop: 04/11/21 22:22 Last Admin: 03/14/21 09:23 Dose: 21 mg Documented by: Ondansetron HCl (Ondansetron Inj 2 Mg/Ml 2 Ml Vial) 4 mg IV Q4H PRN PRN Reason: Nausea Stop: 04/12/21 17:10 Pantoprazole Sodium (Pantoprazole 40 Mg Tab) 40 mg PO DAILY EVON Stop: 04/12/21 08:59 Last Admin: 03/14/21 09:23 Dose: 40 mg Documented by: Vitamin B Complex (Vitamin B Complex Tab) 1 tab PO QAM [facility] Stop: 04/12/21 08:59 Last Admin: 03/14/21 09:22 Dose: 1 tab Documented by: (1) Hypertension Hypertension type: unspecified Qualified Code(s): I10 - Essential (primary) h ypertension
[2021-03-14] MEDS: BENZONATATE 100 MG CAPSULE PO SCH ×2 (16:02→20:14)
[2021-03-14] MEDS: ATORVASTATIN 40 MG TAB PO SCH (20:14)
[2021-03-14] MEDS ORDERED: guaiFENesin/DEXTROM SYRUP 200MG/20MG 10ML UDC PO PRN (21:00)
[2021-03-15 05:50] LABS: Hematocrit (blood only) 25.6 % (37-47); Hemoglobin 8.1 g/dL (12.0-16.0); Mean Corpuscular Hgb Conc 31.6 g/dL (32-36); Mean Corpuscular Volume 85.3 fL (80-100); Mean Platelet Volume 8.9 fL (7.4-10.4); Platelet Count 295 K/uL (130-400); RDW Coefficient of Variation 17.8 % (11.5-14.5); RDW Standard Deviation 55.3 fL (36.4-46.3); White Blood Count 8.15 K/uL (4.8-10.8)
[2021-03-15 06:08] LABS: BUN Creatinine Ratio 18.7 (10-20); Calcium 8.3 mg/dl (8.5-10.1); Creatinine Clr Calc Pharmacy 16.9 ml/min; Est GFR (African American) 14.8 ml/min; Est GFR (Non-African American) 12.8 ml/min; Potassium 3.8 mmol/L (3.5-5.1)
[2021-03-15] MEDS: MULTIVITAMIN TAB PO SCH (09:21)
[2021-03-15] MEDS: hydrALAZINE TAB 50 MG TAB PO SCH ×2 (09:21→20:21)
[2021-03-15] MEDS: VITAMIN B COMPLEX TAB PO SCH (09:21)
[2021-03-15] MEDS: carvediloL 3.125 MG TAB PO SCH ×2 (09:22→20:22)
[2021-03-15] MEDS: PANTOprazole 40 MG TAB PO SCH ×2 (09:22→20:21)
[2021-03-15] MEDS: amLODIPine BESYLATE 5 MG TAB PO SCH (09:23)
[2021-03-15] MEDS: CALCIUM 600MG + VIT D 400 IU TAB PO SCH (09:23)
[2021-03-15] MEDS: hydroCHLOROthiazide 25 MG TAB PO SCH (09:24)
[2021-03-15] MEDS: NICOTINE 21 MG/24 HR TDSY TD SCH (09:24)
[2021-03-15] MEDS: BENZONATATE 100 MG CAPSULE PO SCH ×3 (09:25→20:21)
--- NOTE | 2021-03-15 09:33 | Hospitalist Progress Note ---
Date of Service March 15, 2021 Assessment & Plan (1) Anemia due to GI blood loss: Plan: h/o AVM requiring cautery, which was the case this admission. Some persistent residual melena likely the passage of old blood from recent bleeding, however, consideration given that there may be numerous AVMs present which are out of reach from endoscopy. H/H slightly lower at this time. Cont Protonix and will increase to 40mg PO BID from daily. (2) AVM (arteriovenous malformation): Plan: Hemorrhagic gastritis as the source for active bleeding. AVMs also cauterized although noted tenuous respiratory status during procedure. Cont PPI. Tolerating diet. Outpatient follow-up with GI recommended. (3) Tobacco use disorder: Plan: chronic dialy smoker, currently reporting productive cough. She is not wheezing. She has no acute findings on CXR. Nebulized bronchodilator therapy overnight was problematic for her. Trial of benzonatate started, will add Robitussin PRN. (4) Bereavement due to life event: Plan: Recently lost her son last week. Currently anxious. Treating symptomatically with Ativan. Avoid IV formulation of benzo to avoid proven hypersomnolence. (5) Hypertension: Plan: restart HCTZ in am, originally held on admission in setting of bleeding. (6) CKD (chronic kidney disease) stage 4, GFR 15-29 ml/min: Plan: Stage 4 and at baseline. Cont outpatient nephrology follow-up. (7) DVT prophylaxis: Plan: SCDs, chemoprophy contraindicated in setting of anemia Full Code Dispo-cont hospitalization pending resolution of melena, ensure H/H stable. Savannah Gambino DO [facility] Hospitalist Admission and Anticipated Discharge Date Admission Date: March 12, 2021 Subjective 76 yo F presented with acute bleeding, s/p endoscopic cautery of bleeding AVMs. Tolerating solid foods but has a postprandial urgency to have a bowel movement that is still dark in color. She reports 4 BMs urgently since breakfast. She w as fine overnight. Reports cough and SOB is improved. Pain in rectal area. Review of Systems Review of Systems: At least ten systems were reviewed and negative except as indicated in HPI above. Physical Exam Physical Exam: CONSTITUTIONAL: WNWD, vitals as above, NAD EYES: normal conjunctivae, no scleral icterus ENT: external ear and nose normal, MMM NECK: trachea midline RESPIRATORY: clear to auscultation bilaterally, no crackles, rales or wheezes, normal respiratory effort CARDIOVASCULAR: regular rate and rhythm, 3/6 DEEP, no gallops or rubs, no JVD, no peripheral edema GASTROINTESTINAL: soft, nontender, ND, no guarding MUSCULOSKELETAL: strength 5/5 throughout, head is normocephalic and atraumatic SKIN: warm and dry NEUROLOGIC: CN 2-12 grossly intact,normal cognition, normal speech, no tremor, no gross focal deficits. PSYCHIATRIC: alert cooperative and oriented to person, place and time. Results & Data Results & Data ([facility]) Vital Signs (Past 12 Hours) Vital Signs Temp Pulse Resp BP BP Pulse Ox 03/15/21 07:38 36.8 C 65 18 149/63 H 96 03/15/21 02:56 36.9 C 62 22 161/54 H 92 03/14/21 23:08 37.4 C 64 16 137/52 L 92 Laboratory Results Short CBC 03/15/21 Range/Units 05:22 WBC 8.15 (4.8-10.8) K/uL Hgb 8.1 L (12.0-16.0) g/dL Hct 25.6 L (37-47) % Plt Count 295 (130-400) K/uL BMP 03/15/21 05:22 Sodium 137 Potassium 3.8 Chloride 105 Carbon Dioxide 25 BUN 62 H Creatinine 3.33 H Glucose 95 Calcium 8.3 L Medications Administered Current Inpatient Medications Acetaminophen (Acetaminophen 325 Mg Tab) 650 mg PO Q4H PRN PRN Reason: Pain or Fever Stop: 04/12/21 00:53 Albuterol (Albut/Ipratrop 3mg/0.5mg Neb 3 Ml Vial) 3 ml NEB Q2H PRN PRN Reason: Wheezing Stop: 04/12/21 00:53 Amlodipine Besylate (Amlodipine Besylate 5 Mg Tab) [facility] Stop: 04/12/21 08:59 Last Admin: 03/15/21 09:23 Dose: 10 mg Documented by: Ascorbic Acid (Ascorbic Acid 500 Mg Tab) 500 mg PO QAM [facility] Stop: 04/14/21 08:59 Atorvastatin Calcium (Atorvastatin 40 Mg Tab) 40 mg PO QPM [facility] Stop: 04/12/21 20:59 Last Admin: 03/14/21 20:14 Dose: 40 mg Documented by: Benzonatate (Benzonatate 100 Mg Capsule) 100 mg PO TID [facility] Stop: 04/13/21 15:09 Last Admin: 03/15/21 09:25 Dose: 100 mg Documented by: Carvedilol (Carvedilol 3.125 Mg Tab) 3.125 mg PO BID [facility] Stop: 04/12/21 08:59 Last Admin: 03/15/21 09:22 Dose: 3.125 mg Documented by: Guaifenesin/Dextromethorphan (Guaifenesin/Dextrom Syrup 200mg/20mg 10ml Udc) 10 ml PO Q6H PRN PRN Reason: Cough Stop: 04/13/21 20:59 Hydralazine HCl (Hydralazine Tab 50 Mg Tab) 100 mg PO BID [facility] Stop: 04/12/21 00:53 Last Admin: 03/15/21 09:21 Dose: 100 mg Documented by: Hydrochlorothiazide (Hydrochlorothiazide 25 Mg Tab) 50 mg PO QAM [facility] Stop: 04/14/21 08:59 Last Admin: 03/15/21 09:24 Dose: 50 mg Documented by: Loratadine (Loratadine 10 Mg Tab) 10 mg PO QAM PRN PRN Reason: Allergy Symptoms Stop: 04/12/21 00:53 Lorazepam (Lorazepam 0.5 Mg Tab) 0.5 mg PO Q12H PRN PRN Reason: Anxiety Stop: 04/13/21 15:09 Last Admin: 03/14/21 20:14 Dose: 0.5 mg Documented by: Menthol (Cough Drop (Sugar Free) Marge 24 Marge/1 Box) 1 marge BUCCAL PRN PRN PRN Reason: Sore Throat Stop: 04/13/21 08:50 Last Admin: 03/14/21 09:21 Dose: 1 marge Documented by: Miscellaneous (Remove Nicoderm Patch) 1 ea N/A DAILY@0859 [facility] Stop: 04/12/21 08:58 Last Admin: 03/15/21 09:29 Dose: 1 ea Documented by: Multivitamins (Multivitamin Tab) 1 tab PO DAILY [facility] Stop: 04/12/21 08:59 Last Admin: 03/15/21 09:21 Dose: 1 tab Documented by: Multivitamins/Minerals (Calcium 600mg + Vit D 400 Iu Tab) 1 tab PO QAM [facility] Stop: 04/14/21 08:59 Last Admin: 03/15/21 09:23 Dose: 1 tab Documented by: Nicotine (Nicotine 21 Mg/24 Hr Tdsy) 21 mg TD QAM [facility] Stop: 04/11/21 22:22 Last Admin: 03/15/21 09:24 Dose: 21 mg Documented by: Ondansetron HCl (Ondansetron Inj 2 Mg/Ml 2 Ml Vial) 4 mg IV Q4H PRN PRN Reason: Nausea Stop: 04/12/21 17:10 Pantoprazole Sodium (Pantoprazole 40 Mg Tab) 40 mg PO DAILY [facility] Stop: 04/12/21 08:59 Last Admin: 03/15/21 09:22 Dose: 40 mg Documented by: Vitamin B Complex (Vitamin B Complex Tab) 1 tab PO QAM [facility] Stop: 04/12/21 08:59 Last Admin: 03/15/21 09:21 Dose: 1 tab Documented by: (1) Hypertension Hypertension type: unspecified Qualified Code(s): I10 - Essential (primary) hypertension
--- NOTE | 2021-03-15 13:48 | Gastroenterology Progress Note ---
Date of Service March 15, 2021 Assessment & Plan (1) Melena: (2) Anemia due to GI blood loss: (3) AVM (arteriovenous malformation) of small bowel, acquired with hemorrhage: (4) Hemorrhagic gastritis: Plan: Melenic stools over the past 24 hours may be passage of old blood from previous bleeding, or it may represent ongoing GI bleeding in the hospital. There has been a drop in Hgb from 8.7 to 8.1, and a drop in Hct from 27.5 to 25.6. She may have numerous AVMs in the small bowel out of reach of endoscopy. Recommend continue observation and monitoring for GI bleeding in the hospital and resuscitation as required. Discussed with the patient and all questions answered Admission and Anticipated Discharge Date Admission Date: March 12, 2021 Subjective The patient has had 3 episodes of abdominal cramping and urgency, and passing melenic stools after eating since yesterday afternoon, she denies having melena prior to these episodes. Review of Systems Review of Systems: No additional significant findings Physical Exam Gastrointestinal (Abdomen): normal bowel sounds, soft, nontender, no hepatosplenomegaly Results & Data ([facility]) Vital Signs (Past 12 Hours) Vital Signs Temp Pulse Resp BP Pulse Ox 03/15/21 07:38 36.8 C 65 18 149/63 H 96 03/15/21 02:56 36.9 C 62 22 161/54 H 92 Laboratory Results Laboratory Results WBC 8.15 K/uL (4.8-10.8) 03/15/21 05:22 RBC 3.00 M/uL (4.2-5.4) L 03/15/21 05:22 Hgb 8.1 g/dL (12.0-16.0) L 03/15/21 05:22 Hct 25.6 % (37-47) L 03/15/21 05:22 MCV 85.3 fL (80-100) 03/15/21 05:22 MCH 27.0 pg (25-34) 03/15/21 05:22 MCHC 31.6 g/dL (32-36) L 03/15/21 05:22 RDW Std Deviation 55.3 fL (36.4-46.3) H 03/15/21 05:22 RDW Coeff of Kris 17.8 % (11.5-14.5) H 03/15/21 05:22 Plt Count 295 K/uL (130-400) 03/15/21 05:22 MPV 8.9 fL (7.4-10.4) 03/15/21 05:22 Immature Gran % (Auto) 0.2 % 03/14/21 06:09 Neut % (Auto) 71.5 % 03/14/21 06:09 Lymph % (Auto) 19.7 % 03/14/21 06:09 [place] % (Auto) 6.4 % 03/14/21 06:09 Eos % (Auto) 1.4 % 03/14/21 06:09 Baso % (Auto) 0.8 % 03/14/21 06:09 Neut # (Auto) 6.43 K/uL (1.4-6.5) 03/14/21 06:09 Lymph # (Auto) 1.77 K/uL (1.2-3.4) 03/14/21 06:09 [place] # (Auto) 0.58 K/uL (0.11-0.59) 03/14/21 06:09 Eos # (Auto) 0.13 K/uL (0-0.5) 03/14/21 06:09 Baso # (Auto) 0.07 K/uL (0-0.2) 03/14/21 06:09 Immature Gran # (Auto) 0.02 K/uL (0.00-0.02) 03/14/21 06:09 RBC Morphology Unremarkable 03/13/21 05:11 PT 9.8 Seconds (9.0-12.0) 03/12/21 17:46 INR 1.0 (0.9-1.1) 03/12/21 17:46 APTT 27.3 Seconds (21.0-31.0) 03/12/21 17:46 PTT Ratio 1.0 03/12/21 17:46 Sodium 137 mmol/L (136-145) 03/15/21 05:22 Potassium 3.8 mmol/L (3.5-5.1) 03/15/21 05:22 Chloride 105 mmol/L (98-107) 03/15/21 05:22 Carbon Dioxide 25 mmol/L (21-32) 03/15/21 05:22 Anion Gap 7.0 (3-11) 03/15/21 05:22 BUN 62 mg/dl (7-18) H 03/15/21 05:22 Creatinine 3.33 mg/dl (0.6-1.2) H 03/15/21 05:22 Est Cr Clr Drug Dosing 16.9 ml/min 03/15/21 05:22 Est GFR ( Amer) 14.8 ml/min 03/15/21 05:22 Est GFR (Non-Af Amer) 12.8 ml/min 03/15/21 05:22 BUN/Creatinine Ratio 18.7 (10-20) 03/15/21 05:22 Glucose 95 mg/dl (70-99) 03/15/21 05:22 POC Glucose 85 mg/dl (70-99) 03/14/21 01:48 Estimat Average Glucose 103 mg/dl 03/12/21 17:46 Hemoglobin A1c 5.2 % (4.5-5.6) 03/12/21 17:46 Calcium 8.3 mg/dl (8.5-10.1) L 03/15/21 05:22 Phosphorus 5.2 mg/dl (2.5-4.9) H 03/12/21 17:46 Magnesium 4.1 mg/dl (1.8-2.4) H 03/12/21 17:46 Total Bilirubin 0.3 mg/dl (0.2-1) 03/12/21 17:46 AST 15 U/L (15-37) 03/12/21 17:46 ALT 13 U/L (12-78) 03/12/21 17:46 Alkaline Phosphatase 131 U/L (45-117) H 03/12/21 17:46 Troponin I < 0.015 ng/ml (0-0.045) 03/12/21 17:46 Total Protein 6.8 gm/dl (6.4-8.2) 03/12/21 17:46 Albumin 3.2 gm/dl (3.4-5.0) L 03/12/21 17:46 Globulin 3.6 gm/dl (2.5-4.0) 03/12/21 17:46 Albumin/Globulin Ratio 0.9 (0.9-2) 03/12/21 17:46 TSH 3.390 uIu/ml (0.300-4.500) 03/12/21 17:46 Urine Color Yellow 03/12/21 21:27 Urine Appearance Clear (Clear) 03/12/21 21:27 Urine pH 7.0 (4.5-7.5) 03/12/21 21:27 Ur Specific [place] 1.009 (1.000-1.030) 03/12/21 21:27 Urine Protein 2+ (Negative) H 03/12/21 21:27 Urine Glucose (UA) Negative (Negative) 03/12/21 21:27 Urine Ketones Negative (Negative) 03/12/21 21:27 Urine Blood Negative (Negative) 03/12/21 21:27 Urine Nitrite Negative (Negative) 03/12/21 21: Urine Bilirubin Negative (Negative) 03/12/21 21: Urine Urobilinogen Negative (Negative) 03/12/21 21:27 Ur Leukocyte Esterase Negative (Negative) 03/12/21 21:27 Urine WBC (Auto) 1-5 /hpf (0-5) 03/12/21 21:27 Urine RBC (Auto) 0-4 /hpf (0-4) 03/12/21 21:27 U Hyaline Cast (Auto) 1-5 /lpf (0-5) 03/12/21 21:27 U Epithel Cells (Auto) >30 /lpf (0-5) H 03/12/21 21:27 Urine Bacteria (Auto) Negative (Negative) 03/12/21 21:27 COVID-19 Eval Order Covid19 at [facility] 03/12/21 21:12 SARS-CoV-2 (PCR) NEGATIVE (Negative) 03/12/21 21:12 Blood Type O Positive 03/12/21 17:46 Antibody Screen NEGATIVE 03/12/21 17:46 Crossmatch See Detail 03/12/21 17:46 Impressions Chest X-Ray 03/13/21 21:13 XR chest 1V portable HISTORY: cough COMPARISON: Chest 03/12/2021. FINDINGS: Cardiac silhouette remains mildly enlarged. Left basilar scarlike density persists. Otherwise, the lungs are clear. No pleural effusions. No pneumothorax. IMPRESSION: Stable mild cardiomegaly. ACT 112: Negative or not required by law. Electronically signed by: Faisal Azul M.D. 03/14/2021 8:08 AM
[2021-03-15] MEDS: ASCORBIC ACID 500 MG TAB PO SCH (14:28)
[2021-03-15] MEDS: BUTT PASTE (ZINC OXIDE 16%) 171 APPLN/57 GM JAR EXT SCH ×2 (16:03→20:27)
[2021-03-15] MEDS: ATORVASTATIN 40 MG TAB PO SCH (20:23)
[2021-03-16 05:54] LABS: Hematocrit (blood only) 29.7 % (37-47); Hemoglobin 9.7 g/dL (12.0-16.0); Mean Corpuscular Hemoglobin 28.2 pg (25-34); Mean Corpuscular Hgb Conc 32.7 g/dL (32-36); Mean Corpuscular Volume 86.3 fL (80-100); Mean Platelet Volume 8.9 fL (7.4-10.4); Platelet Count 331 K/uL (130-400); RDW Standard Deviation 56.3 fL (36.4-46.3); Red Blood Count 3.44 M/uL (4.2-5.4); White Blood Count 9.54 K/uL (4.8-10.8)
[2021-03-16 06:28] LABS: BUN Creatinine Ratio 16.5 (10-20); Calcium 8.9 mg/dl (8.5-10.1); Creatinine Clr Calc Pharmacy 17.3 ml/min; Est GFR (African American) 15.2 ml/min; Est GFR (Non-African American) 13.1 ml/min; Potassium 3.8 mmol/L (3.5-5.1)
[2021-03-16] MEDS: carvediloL 3.125 MG TAB PO SCH (08:58)
[2021-03-16] MEDS: hydrALAZINE TAB 50 MG TAB PO SCH (08:58)
[2021-03-16] MEDS: PANTOprazole 40 MG TAB PO SCH (08:58)
[2021-03-16] MEDS: amLODIPine BESYLATE 5 MG TAB PO SCH (08:59)
[2021-03-16] MEDS: CALCIUM 600MG + VIT D 400 IU TAB PO SCH (09:00)
[2021-03-16] MEDS: hydroCHLOROthiazide 25 MG TAB PO SCH (09:00)
[2021-03-16] MEDS: MULTIVITAMIN TAB PO SCH (09:00)
[2021-03-16] MEDS: ASCORBIC ACID 500 MG TAB PO SCH (09:01)
[2021-03-16] MEDS: NICOTINE 21 MG/24 HR TDSY TD SCH (09:01)
[2021-03-16] MEDS: BENZONATATE 100 MG CAPSULE PO SCH ×2 (09:06→14:34)
[2021-03-16] MEDS: VITAMIN B COMPLEX TAB PO SCH (09:10)
[2021-03-16] MEDS: BUTT PASTE (ZINC OXIDE 16%) 171 APPLN/57 GM JAR EXT SCH ×2 (09:11→14:34)
--- NOTE | 2021-03-16 11:40 | Gastroenterology Progress Note ---
Date of Service March 16, 2021 Assessment & Plan (1) Anemia due to GI blood loss: (2) Melena: (3) AVM (arteriovenous malformation) of small bowel, acquired with hemorrhage: (4) Hemorrhagic gastritis: Plan: Impression is resolution of GI bleeding at this time, with stable H/H Recommend continue monitoring as an outpatient with monthly checks of H/H and stool for blood, continue oral iron supplement and daily PPI. We will sign off at this time, and reevaluate and intervene as requested by the primary care team. The patient should follow up with us in the office in 6-8 weeks. Admission and Anticipated Discharge Date Admission Date: March 12, 2021 Subjective Patient denies any more episodes of melena, she is passing flatus but no stools H/H increased to 9.7/29.7 this morning without administration of packed cells Physical Exam Gastrointestinal (Abdomen): Soft abdomen without guarding, tenderness, masses Results & Data ([facility]) Vital Signs (Past 12 Hours) Vital Signs Temp Pulse Resp BP Pulse Ox Pulse Ox 03/16/21 08:00 36.8 C 65 18 186/66 H 92 03/16/21 00:00 95 Laboratory Results 03/16/21 03/16/21 Range/Units 05:20 05:20 WBC 9.54 (4.8-10.8) K/uL RBC 3.44 L (4.2-5.4) M/uL Hgb 9.7 L (12.0-16.0) g/dL Hct 29.7 L (37-47) % MCV 86.3 (80-100) fL MCH 28.2 (25-34) pg MCHC 32.7 (32-36) g/dL RDW Std Deviation 56.3 H (36.4-46.3) fL RDW Coeff of Kris 18.0 H (11.5-14.5) % Plt Count 331 (130-400) K/uL MPV 8.9 (7.4-10.4) fL Sodium 135 L (136-145) mmol/L Potassium 3.8 (3.5-5.1) mmol/L Chloride 103 (98-107) mmol/L Carbon Dioxide 26 (21-32) mmol/L Anion Gap 6.0 (3-11) BUN 54 H (7-18) mg/dl Creatinine 3.26 H (0.6-1.2) mg/dl Est Cr Clr Drug Dosing 17.3 ml/min Est GFR ( Amer) 15.2 ml/min Est GFR (Non-Af Amer) 13.1 ml/min BUN/Creatinine Ratio 16.5 (10-20) Glucose 107 H (70-99) mg/dl Calcium 8.9 (8.5-10.1) mg/dl
--- NOTE | 2021-03-16 17:02 | Discharge Summary ---
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 She denies any history of melena, hematochezia Admission Exam Per Admitting Provider General: no acute distress, WDWN, chronic ill appearing Head: normocephalic, atraumatic Eyes: PERRL, EOM's intact, conjunctiva pale, anicteric ENT: normal inspection external ears, nose, mucous membranes moist Neck: supple, trachea midline Lungs: clear, no respiratory distress, no wheezing/rhonchi/rales CV: RRR, + murmur, trace pretibial edema Abd: normal BS, soft, non-tender Ext: no cyanosis, no calf tenderness Neuro: A&O x 3, no focal deficits noted, normal affect Skin: warm, dry Principal Diagnosis Anemia due to GI blood loss AVM Hemorrhagic gastritis Tobacco use disorder Discharge Exam CONSTITUTIONAL: WNWD, vitals as above, NAD EYES: normal conjunctivae, no scleral icterus ENT: external ear and nose normal, MMM NECK: trachea midline RESPIRATORY: clear to auscultation bilaterally, no crackles, rales or wheezes, normal respiratory effort CARDIOVASCULAR: regular rate and rhythm, 3/6 DEEP, no gallops or rubs, no JVD, no peripheral edema GASTROINTESTINAL: soft, nontender, ND, no guarding MUSCULOSKELETAL: strength 5/5 throughout, head is normocephalic and atraumatic SKIN: warm and dry NEUROLOGIC: CN 2-12 grossly intact,normal cognition, normal speech, no tremor, no gross focal deficits. PSYCHIATRIC: alert cooperative and oriented to person, place and time. Discharge Data Allergies Allergy/AdvReac Type Severity Reaction Status Date / Time Bactrim Allergy Severe ELEVATED Verified 08/15/13 14:34 POTASSIUM, BRADYCARDIC "HEART TRIED TO SHUT DOWN" sulfamethoxazole Allergy Severe ELEVATED Verified 03/12/21 19:31 POTASSIUM, BRADYCARDIC "HEART TRIED TO SHUT DOWN" trimethoprim Allergy Severe ELEVATED Verified 03/12/21 19:31 POTASSIUM, BRADYCARDIC "HEART TRIED TO SHUT DOWN" gabapentin Allergy Intermediate HALLUCINATIONS; Verified 03/12/21 19:31 SCREAMING/YELLING codeine Allergy Mild RASH, Verified 03/12/21 19:31 RAPID HEART BEAT hydromorphone [From Dilaudid] AdvReac Mild Hallucinati Verified 03/12/21 19:31 ng morphine AdvReac Unknown Unknown Verified 03/12/21 19:31 oxycodone [From Percocet] AdvReac Unknown Unknown Verified 03/12/21 19:31 Consultations 03/12/21 20:18 ED Decision to Admit Stat 03/13/21 00:54 Consult Gastroenterology Routine Procedures Performed Operation Date: 03/13/21 16:15 Actual Procedures p Small Bowel Enteroscopy Hemostasis - Raz Pathak MD Ordered Studies Laboratory Results WBC 9.54 K/uL (4.8-10.8) 03/16/21 05:20 RBC 3.44 M/uL (4.2-5.4) L 03/16/21 05:20 Hgb 9.7 g/dL (12.0-16.0) L 03/16/21 05:20 Hct 29.7 % (37-47) L 03/16/21 05:20 MCV 86.3 fL (80-100) 03/16/21 05:20 MCH 28.2 pg (25-34) 03/16/21 05:20 MCHC 32.7 g/dL (32-36) 03/16/21 05:20 RDW Std Deviation 56.3 fL (36.4-46.3) H 03/16/21 05:20 RDW Coeff of Kris 18.0 % (11.5-14.5) H 03/16/21 05:20 Plt Count 331 K/uL (130-400) 03/16/21 05:20 MPV 8.9 fL (7.4-10.4) 03/16/21 05:20 Immature Gran % (Auto) 0.2 % 03/14/21 06:09 Neut % (Auto) 71.5 % 03/14/21 06:09 Lymph % (Auto) 19.7 % 03/14/21 06:09 [place] % (Auto) 6.4 % 03/14/21 06:09 Eos % (Auto) 1.4 % 03/14/21 06:09 Baso % (Auto) 0.8 % 03/14/21 06:09 Neut # (Auto) 6.43 K/uL (1.4-6.5) 03/14/21 06:09 Lymph # (Auto) 1.77 K/uL (1.2-3.4) 03/14/21 06:09 [place] # (Auto) 0.58 K/uL (0.11-0.59) 03/14/21 06:09 Eos # (Auto) 0.13 K/uL (0-0.5) 03/14/21 06:09 Baso # (Auto) 0.07 K/uL (0-0.2) 03/14/21 06:09 Immature Gran # (Auto) 0.02 K/uL (0.00-0.02) 03/14/21 06:09 RBC Morphology Unremarkable 03/13/21 05:11 PT 9.8 Seconds (9.0-12.0) 03/12/21 17:46 INR 1.0 (0.9-1.1) 03/12/21 17:46 APTT 27.3 Seconds (21.0-31.0) 03/12/21 17:46 PTT Ratio 1.0 03/12/21 17:46 Sodium 135 mmol/L (136-145) L 03/16/21 05:20 Potassium 3.8 mmol/L (3.5-5.1) 03/16/21 05:20 Chloride 103 mmol/L (98-107) 03/16/21 05:20 Carbon Dioxide 26 mmol/L (21-32) 03/16/21 05:20 Anion Gap 6.0 (3-11) 03/16/21 05:20 BUN 54 mg/dl (7-18) H 03/16/21 05:20 Creatinine 3.26 mg/dl (0.6-1.2) H 03/16/21 05:20 Est Cr Clr Drug Dosing 17.3 ml/min 03/16/21 05:20 Est GFR ( Amer) 15.2 ml/min 03/16/21 05:20 Est GFR (Non-Af Amer) 13.1 ml/min 03/16/21 05:20 BUN/Creatinine Ratio 16.5 (10-20) 03/16/21 05:20 Glucose 107 mg/dl (70-99) H 03/16/21 05:20 POC Glucose 85 mg/dl (70-99) 03/14/21 01:48 Estimat Average Glucose 103 mg/dl 03/12/21 17:46 Hemoglobin A1c 5.2 % (4.5-5.6) 03/12/21 17:46 Calcium 8.9 mg/dl (8.5-10.1) 03/16/21 05:20 Phosphorus 5.2 mg/dl (2.5-4.9) H 03/12/21 17:46 Magnesium 4.1 mg/dl (1.8-2.4) H 03/12/21 17:46 Total Bilirubin 0.3 mg/dl (0.2-1) 03/12/21 17:46 AST 15 U/L (15-37) 03/12/21 17:46 ALT 13 U/L (12-78) 03/12/21 17:46 Alkaline Phosphatase 131 U/L (45-117) H 03/12/21 17:46 Troponin I < 0.015 ng/ml (0-0.045) 03/12/21 17:46 Total Protein 6.8 gm/dl (6.4-8.2) 03/12/21 17:46 Albumin 3.2 gm/dl (3.4-5.0) L 03/12/21 17:46 Globulin 3.6 gm/dl (2.5-4.0) 03/12/21 17:46 Albumin/Globulin Ratio 0.9 (0.9-2) 03/12/21 17:46 TSH 3.390 uIu/ml (0.300-4.500) 03/12/21 17:46 Urine Color Yellow 03/12/21: Urine Appearance Clear (Clear) 03/12/21 21: Urine pH 7.0 (4.5-7.5) 03/12/21 21: Ur Specific [place] 1.009 (1.000-1.030) 03/12/21 21: Urine Protein 2+ (Negative) H 03/12/21 21: Urine Glucose (UA) Negative (Negative) 03/12/21: Urine Ketones Negative (Negative) 03/12/21 21: Urine Blood Negative (Negative) 03/12/21 21: Urine Nitrite Negative (Negative) 03/12/21 21: Urine Bilirubin Negative (Negative) 03/12/21 21: Urine Urobilinogen Negative (Negative) 03/12/21 21:27 Ur Leukocyte Esterase Negative (Negative) 03/12/21 21:27 Urine WBC (Auto) 1-5 /hpf (0-5) 03/12/21 21:27 Urine RBC (Auto) 0-4 /hpf (0-4) 03/12/21 21:27 U Hyaline Cast (Auto) 1-5 /lpf (0-5) 03/12/21 21:27 U Epithel Cells (Auto) >30 /lpf (0-5) H 03/12/21 21:27 Urine Bacteria (Auto) Negative (Negative) 03/12/21 21:27 COVID-19 Eval Order Covid19 at [facility] 03/12/21 21:12 SARS-CoV-2 (PCR) NEGATIVE (Negative) 03/12/21 21:12 Blood Type O Positive 03/12/21 17:46 Antibody Screen NEGATIVE 03/12/21 17:46 Crossmatch See Detail 03/12/21 17:46 Impressions Chest X-Ray 03/13/21 21:13 XR chest 1V portable HISTORY: cough COMPARISON: Chest 03/12/2021. FINDINGS: Cardiac silhouette remains mildly enlarged. Left basilar scarlike density persists. Otherwise, the lungs are clear. No pleural effusions. No pneumothorax. IMPRESSION: Stable mild cardiomegaly. ACT 112: Negative or not required by law. Electronically signed by: Faisal Azul M.D. 03/14/2021 8:08 AM Hospital Course (1) Anemia due to GI blood loss: h/o AVM requiring cautery, which was the case this admission. Some persistent residual melena post procedure likely the passage of old blood. This resolved prior to discharge. Hemoglobin was improved to 9.7 on day of dicharge and she was hemodynamically stable. Cont daily PPI, iron supplement, monthly H/H, and follow-up with gastroenterology in 6-8 weeks. (2) AVM (arteriovenous malformation): Hemorrhagic gastritis as the source for active bleeding. AVMs also cauterized although noted tenuous respiratory status during procedure. Cont PPI. Tolerating diet. Outpatient follow-up with GI recommended. (3) Tobacco use disorder: chronic daily smoker, currently reporting productive cough. She was not wheezing and had no acute findings on CXR. Nebulized bronchodilator therapy overnight was problematic for her. Trial of benzonatate was successful in improving her cough which was resolved prior to discharge. Strongly encouraged complete tobacco cessation. (4) Bereavement due to life event: Recently lost her son last week. Anxious during admission. Treatedsymptomatically with Ativan. Avoid IV formulation of benzo to avoid proven hypersomnolence. (5) CKD (chronic kidney disease) stage 4, GFR 15-29 ml/min: Stage 4 and at baseline. Cont outpatient nephrology follow-up. Total Time Total Time Spent Total Time Spent (In Minutes): 60 Discharge Plan Discharge Items Patient Disposition: Home - Self-Care Reason For Visit: SYMPTOMATIC ANEMIA, OCCULT GI BLEED Discharge Diagnosis: Anemia due to GI blood loss AVM Hemorrhagic gastritis Tobacco use disorder Condition on Discharge: Good Activity: Resume your previous activity Non-emergency contact: Primary Care Provider and Melt Superintendant Call non-emergency contact if: you have any medication questions and your symptoms worsen Follow-up/Referrals: Gabbie Hunter PA-C [Primary Care Provider] - Diet: Regular Diet Texture: Dental soft (bite-sized) Addtl Attending Provider Instructions: Please take all medications as instructed on discharge list below. Your room designer is advising you to continue once daily proton pump inhibitor (Dexilant), regular iron supplementation and follow-up with him in the office in 6-8 weeks. It is recommended that you follow-up with your primary care provider within one week of discharge from the hospital to ensure you are still doing well after discharge from the hospital. It is recommended that you have your blood count (CBC) checked monthly as you are still anemic. Please utilize the nicotine patches to help you stay quit from smoking as this is terrible for your health. It was a pleasure taking care of you! Please call if you have any questions or problems. You can reach a [facility] hospitalist on duty at [facility] 24 hours a day by calling [phone]. Take care of yourself. Savannah Gambino DO [facility]ist e Pending Studies at Discharge: No Stand-Alone Forms: My [facility], Smoking Cessation Medications and DC Order Prescriptions: New ferrous sulfate 325 mg (65 mg iron) tablet 325 mg PO BID Qty: 60 RF: 0 nicotine [Nicoderm CQ] 21 mg/24 hr patch 24 hour 1 patch transdermal DAILY Qty: 14 RF: 1 Continued atorvastatin 40 mg Tablet 40 mg PO QPM RF: 0 Calcium 600 + D(3) 600 mg calcium- 200 unit Capsule 1 cap PO QAM RF: 0 aspirin 81 mg Tablet,Delayed Release (Dr/Ec) 81 mg PO QAM RF: 0 albuterol sulfate 5 mg/mL Solution For Nebulization 2.5 mg INHALATION Q4 PRN (Reason: Shortness Of Breath) RF: 0 loratadine 10 mg Tablet 10 mg PO QAM PRN (Reason: Allergy Symptoms) RF: 0 hydralazine 100 mg tablet 100 mg PO BID RF: 0 hydrochlorothiazide 50 mg Tablet 50 mg PO QAM RF: 0 furosemide 20 mg Tablet 20 mg PO QAM RF: 0 B-complex with vitamin C Tablet 1 tab PO QAM RF: 0 amlodipine 10 mg tablet 10 mg PO QAM RF: 0 carvedilol 3.125 mg tablet 3.125 mg PO BID RF: 0 multivitamin Tablet 1 tab PO DAILY RF: 0 ascorbic acid (vitamin C) [Vitamin C] 500 mg Tablet 500 mg PO QAM RF: 0 Dexilant 60 mg capsule,biphase delayed releas 60 mg PO DAILY RF: 0 Discharge Orders: Discharge Order (Routine); Ordered 03/16/21 Ordered By: Savannah Gambino Admission Data Admit Date/Time: 03/12/21 22:17 Attending Provider: Savannah Gambino Admit Provider: Devyn López Primary Care Provider: Gabbie Hunter Other Providers: Devyn López ; Kathi Bland ; Edward Howe ; Anthony Sow ; Parish Smyth ; Cornelius Graham ; Raz Pathak Other Interventions: Discharge Summary Assessment (RN) Last Done: 03/16/21 17:25
== END 2021-03-16 18:07 | disposition home or self-care (01) | DRG 811 ==
LOC: ED 16:47 → SUATTDRO 22:17 → EDINP 22:17 → 2W 03-13 06:14 → 3N 03-15 02:26

== ENCOUNTER 2021-03-30 11:53 | Inpatient (IN) ==
[2021-03-30 13:13] LABS: Basophils # (auto) 0.04 K/uL (0-0.2); Basophils % (auto) 0.5 %; Eosinophils # (auto) 0.13 K/uL (0-0.5); Eosinophils % (auto) 1.7 %; Hematocrit (blood only) 25.9 % (37-47); Hemoglobin 8.1 g/dL (12.0-16.0); Lymphocytes % (auto) 14.6 %; Mean Corpuscular Hgb Conc 31.3 g/dL (32-36); Mean Corpuscular Volume 86.3 fL (80-100); Mean Platelet Volume 9.1 fL (7.4-10.4); Monocytes # (auto) 0.48 K/uL (0.11-0.59); Monocytes % (auto) 6.4 %; Neutrophils # (auto) 5.77 K/uL (1.4-6.5); Neutrophils % (auto) 76.8 %; Platelet Count 283 K/uL (130-400); RDW Coefficient of Variation 17.4 % (11.5-14.5); RDW Standard Deviation 54.7 fL (36.4-46.3); White Blood Count 7.52 K/uL (4.8-10.8)
--- NOTE | 2021-03-30 13:19 | CT Scan Report ---
CT OF THE HEAD WITHOUT CONTRAST CLINICAL HISTORY: Dizziness. Weakness. COMPARISON STUDY: No previous studies for comparison. CT DOSE: 709.48 mGy.cm TECHNIQUE: Helical axial images of the head were obtained without IV contrast. Automated exposure con trol was utilized for the study. A dose lowering technique was utilized adhering to the principles o f ALARA. FINDINGS: No acute intracranial hemorrhage, midline shift or mass effect is present. The ventricular system is unremarkable. The basal cisterns are patent. White matter hypodensity suggests small vessel disease. No extra-axial collections are present. There are no findings to suggest acute dural sinus thrombosis or acute territorial infarct. No significant calvarial abnormalities are present. Visualiz ed portions of the sinuses and mastoid air cells are clear. IMPRESSION: No acute intracranial findings. ACT 112: Negative or not required by law. Electronically signed by: Conor Glasgow M.D. 03/30/2021 1:18 PM
[2021-03-30 13:21] LABS: Partial Thromboplastin Time 27.3 Seconds (21.0-31.0); Prothrombin Time 9.7 Seconds (9.0-12.0)
--- NOTE | 2021-03-30 13:22 | Emergency Department Note ---
Impression & Plan Acute upper gastrointestinal bleeding, Anemia, Near syncope, LESLIE (acute kidney injury) ED Provider Note NAME: FELI JAUREGUI AGE: 76 SEX: F : 1945 ARRIVES VIA: Walk-In INFORMANT: Patient, ED PROVIDER(S): Jonas Pascal DO CHIEF COMPLAINT: Dizziness HPI: The patient is a 76-year-old female who presented to the emergency d [facility] with family member for an evaluation of dizziness. The patient describes dizziness which has been ongoing for approximately 3 to 4 days. The patient states that she notices symptoms when she goes from a sitting to standing position. She also notices some symptoms when she turns her head. She denies having any nausea or vomiting. She denies having any abdominal pain. She has had no recent fever. The patient is not seen her family doctor for the symptoms but she is noticed them over the course the last week. Symptoms have worsened over the last 24 hours. She denies having any recent traveling or trauma. She denies having any headache. The patient denies having any ringing in the ears. ROS: See above HPI for pertinent positives & negatives. A total of 10 systems reviewed and were otherwise negative. PAST MEDICAL HISTORY: See Below PAST SURGICAL HISTORY: See Below FAMILY HISTORY: See Below SOCIAL HISTORY: See Below HOME MEDICATIONS: See Below ALLERGIES: See Below VITALS: See Below PHYSICAL EXAMINATION: GENERAL: Patient is awake alert in no acute distress patient is resting comfortably and showing no signs of anxiety EYES: The conjunctivae are clear. The pupils are round and reactive. EARS, NOSE, MOUTH AND THROAT: The nose is without any evidence of any deformity. Tympanic membranes are clear bilaterally. NECK: The neck is nontender and supple. RESPIRATORY: Normal respiratory effort is noted there is no evidence of wheezing rhonchi or rales CARDIOVASCULAR: Regular rate and rhythm was noted to auscultation. Systolic murmur was suggested. GASTROINTESTINAL: The abdomen is soft. Abdomen is nontender. Rectal exam revealed black stool which was strongly heme positive. MUSCULOSKELETAL/EXTREMITIES: There is no evidence of gross deformity full range of motion is noted in the hips and shoulders. SKIN: There is no obvious evidence of any rash. There are no petechiae, pallor or cyanosis noted. NEUROLOGIC: Patient is awake alert and oriented x3 strength is symmetric patellar reflexes are 2+ bilaterally. There is no drift or facial droop appreciated. MEDICAL DECISION MAKING: The patient is a 76-year-old female who presented to the emergency department for an evaluation of dizziness. Initially I thought the patient was describing vertigo symptoms. The patient was recently seen in our facility for a GI procedure and was found to have upper GI bleeding. She still complains of some dark stool in her stool revealed heme positive dark stool on physical exam. I discussed the patient's laboratory and radiographic studies with her. She was treated with a small fluid bolus in the emergency department. Her BUN and creatinine appear to be slightly elevated compared to baseline. Because of her findings I did discuss her case with the on-call [facility] group. Rachel nenahanna have agreed to evaluate the patient in the emergency department for further management and disposition. Triage Nursing notes reviewed. Prior medical records reviewed Vital Signs: reviewed and remarkable for hypertension Differential diagnosis: Benign positional vertigo, dehydration, hypovolemia, anemia, tumor, infection, hypoglycemia, electrolyte abnormalities, cardiac sources, intracerebral event, toxicologic, neurologic, as well as other pathologies. ER treatment provided: See below Diagnostics interpreted by me: ECG: EKG was obtained in the emergency department. My interpretation is sinus rhythm at 74 bpm. First-degree AV block was noted. PVCs were noted. Nonsp ecific ST segment abnormalities noted. This was compared to a tracing from March 15, 2021. No significant changes were noted. Cardiac Monitoring: An order was placed for continuous cardiac monitoring. The monitor shows a rate of 70 bpm with sinus rhythm. Laboratory studies: As stated above and show below. Imaging studies: See below Consultation(s): I discussed this case with Maria D chavez who is on-call for the [facility] ali group. They will evaluate the patient in the emergency department. Past Med/Surg History Medical History Anemia Cardiac murmur Carotid stenosis, left Left carotid endarterectomy 11/2020 [facility] with Dr Love Chronic back pain Chronic kidney disease, stage 4 (severe) Generalized weakness GERD (gastroesophageal reflux disease) Gout hx History of upper gastrointestinal bleeding Hyperlipidemia Hypertension Mesenteric artery stenosis Renal artery stenosis Surgical History History of bilateral cataract extraction History of carotid endarterectomy (12/10/20) [facility] with Dr Love History of carpal tunnel release of both wrists History of cholecystectomy History of colonoscopy with polypectomy History of esophagogastroduodenoscopy (EGD) History of laminectomy History of repair of right rotator cuff History of tooth extraction all teeth removed Family History Mother Family history of diabetes mellitus Brother Family history of diabetes mellitus Sister Family history of diabetes mellitus Other No family history of adverse response to anesthesia Social History Smoking Status: Current every day smoker Tobacco Type: Cigarettes Cigarettes Per Day: 20; Second Hand Exposure: Yes; Hx Alcohol Use: No Hx Substance Use: No Preferred Language: Barbadian Communication Ability: Effective Rack Washer Required: No Beliefs That Will Affect Care: None marital status: Current Living Situation: Alone How many Children do You have: 2 Feels Safe at Home: Yes Assistive Devices: None Allergies Allergies Allergy/AdvReac Type Severity Reaction Status Date / Time Bactrim Allergy Severe ELEVATED Verified 08/15/13 14:34 POTASSIUM, BRADYCARDIC "HEART TRIED TO SHUT DOWN" sulfamethoxazole Allergy Severe ELEVATED Verified 03/30/21 14:10 POTASSIUM, BRADYCARDIC "HEART TRIED TO SHUT DOWN" trimethoprim Allergy Severe ELEVATED Verified 03/30/21 14:10 POTASSIUM, BRADYCARDIC "HEART TRIED TO SHUT DOWN" gabapentin Allergy Intermediate HALLUCINATIONS; Verified 03/30/21 14:10 SCREAMING/YELLING codeine Allergy Mild RASH, Verified 03/30/21 14:10 RAPID HEART BEAT hydromorphone [From Dilaudid] AdvReac Mild Hallucinati Verified 03/30/21 14:10 ng morphine AdvReac Unknown Unknown Verified 03/30/21 14:10 oxycodone [From Percocet] AdvReac Unknown Unknown Verified 03/30/21 14:10 Home Meds Home Medications Medication Instructions Recorded Confirmed albuterol sulfate 5 mg/mL(0.5 %) 2.5 mg INHALATION Q4 PRN 09/16/18 03/30/21 solution for nebulization aspirin 81 mg tablet,delayed 81 mg PO QAM 09/16/18 03/30/21 release atorvastatin 40 mg tablet 40 mg PO QPM 09/16/18 03/30/21 calcium carbonate-vitamin D3 600 1 cap PO QAM 09/16/18 03/30/21 mg calcium-200 unit capsule (Calcium 600 + D(3)) loratadine 10 mg tablet 10 mg PO QAM PRN 09/16/18 03/30/21 hydralazine 100 mg tablet 100 mg PO BID 04/19/19 03/30/21 amlodipine 10 mg tablet 10 mg PO QAM 10/10/20 03/30/21 carvedilol 3.125 mg tablet 3.125 mg PO BID 10/10/20 03/30/21 ascorbic acid (vitamin C) 500 mg 500 mg PO QAM 12/10/20 03/30/21 tablet (Vitamin C) multivitamin 1 tab PO DAILY 12/10/20 03/30/21 B-complex with vitamin C 1 tab PO QAM 02/17/21 03/30/21 furosemide 20 mg tablet 20 mg PO QAM 02/17/21 03/30/21 hydrochlorothiazide 50 mg tablet 50 mg PO QAM 02/17/21 03/30/21 dexlansoprazole 60 mg 60 mg PO PM 03/12/21 03/30/21 capsule,biphase delayed release (Dexilant) nitroglycerin 0.4 mg sublingual 0.4 mg SUBLINGUAL DIRECTED PRN 03/30/21 03/30/21 tablet trazodone 50 mg tablet 25 mg PO HS PRN 03/30/21 03/30/21 Results & Data (ED) Vital Signs Vital Signs - 24 hr 03/30/21 11:55 03/30/21 12:13 03/30/21 12:14 Temperature 36.5 C Temperature Source Oral Pulse Rate - Lying 67 Pulse Rate - Sitting 72 Pulse Rate - Standing 76 Pulse Rate 104 H Pulse Rate [Left] 76 Pulse Rate from SpO2 Sensor Pulse Rhythm Regular Pulse Rhythm [Left] Regular Pulse Strength Normal Pulse Strength [Left] Normal Respiratory Rate 20 22 Respiratory Effort / Characteristics Non-Labored Spontaneous Non-Labored Respiratory Depth Normal Normal Respiratory Pattern Regular Regular Blood Pressure - Lying 177/55 H Blood Pressure - Sitting 177/59 H Blood Pressure- Standing 173/54 H Blood Pressure 180/63 H Blood Pressure [Right Arm] 173/54 H Blood Pressure Mean 102 Blood Pressure Mean [Right Arm] 93 Blood Pressure Position [Right Arm] Sitting Pulse Oximetry 100 Oxygen Delivery Method Room Air Sepsis Recent Fever Within 48 Hours No Sepsis New/Unexplained Change in Mental Status N/A Sepsis Action Taken by Nursing No Action Required 03/30/21 12:18 03/30/21 12:33 03/30/21 12:46 Temperature Temperature Source Pulse Rate - Lying Pulse Rate - Sitting Pulse Rate - Standing Pulse Rate 63 Pulse Rate [Left] Pulse Rate from SpO2 Sensor Pulse Rhythm Pulse Rhythm [Left] Pulse Strength Pulse Strength [Left] Respiratory Rate 13 Respiratory Effort / Characteristics Respiratory Depth Respiratory Pattern Blood Pressure - Lying Blood Pressure - Sitting Blood Pressure- Standing Blood Pressure Blood Pressure [Right Arm] Blood Pressure Mean Blood Pressure Mean [Right Arm] Blood Pressure Position [Right Arm] Pulse Oximetry 100 100 98 Oxygen Delivery Method Room Air Room Air Sepsis Recent Fever Within 48 Hours Sepsis New/Unexplained Change in Mental Status Sepsis Action Taken by Nursing 03/30/21 13:00 03/30/21 13:14 03/30/21 13:30 Temperature Temperature Source Pulse Rate - Lying Pulse Rate - Sitting Pulse Rate - Standing Pulse Rate 65 63 Pulse Rate [Left] 73 Pulse Rate from SpO2 Sensor Pulse Rhythm Pulse Rhythm [Left] Pulse Strength Pulse Strength [Left] Respiratory Rate 18 16 16 Respiratory Effort / Characteristics Respiratory Depth Respiratory Pattern Blood Pressure - Lying Blood Pressure - Sitting Blood Pressure- Standing Blood Pressure 176/70 H 161/56 H Blood Pressure [Right Arm] 173/57 H Blood Pressure Mean 105 91 Blood Pressure Mean [Right Arm] 95 Blood Pressure Position [Right Arm] Sitting Pulse Oximetry 99 98 100 Oxygen Delivery Method Room Air Sepsis Recent Fever Within 48 Hours Sepsis New/Unexplained Change in Mental Status Sepsis Action Taken by Nursing 03/30/21 14:00 03/30/21 14:30 03/30/21 15:00 Temperature Temperature Source Pulse Rate - Lying Pulse Rate - Sitting Pulse Rate - Standing Pulse Rate 64 65 69 Pulse Rate [Left] Pulse Rate from SpO2 Sensor 65 Pulse Rhythm Pulse Rhythm [Left] Pulse Strength Pulse Strength [Left] Respiratory Rate 17 18 17 Respiratory Effort / Characteristics Respiratory Depth Respiratory Pattern Blood Pressure - Lying Blood Pressure - Sitting Blood Pressure- Standing Blood Pressure 173/57 H 181/77 H Blood Pressure [Right Arm] Blood Pressure Mean 95 111 Blood Pressure Mean [Right Arm] Blood Pressure Position [Right Arm] Pulse Oximetry 98 96 98 Oxygen Delivery Method Room Air Sepsis Recent Fever Within 48 Hours Sepsis New/Unexplained Change in Mental Status Sepsis Action Taken by Nursing 03/30/21 15:03 03/30/21 15:30 03/30/21 16:00 Temperature Temperature Source Pulse Rate - Lying Pulse Rate - Sitting Pulse Rate - Standing Pulse Rate 68 67 Pulse Rate [Left] 65 Pulse Rate from SpO2 Sensor Pulse Rhythm Pulse Rhythm [Left] Pulse Strength Pulse Strength [Left] Respiratory Rate 16 14 16 Respiratory Effort / Characteristics Respiratory Depth Respiratory Pattern Blood Pressure - Lying Blood Pressure - Sitting Blood Pressure- Standing Blood Pressure 183/62 H 189/57 H Blood Pressure [Right Arm] 189/57 H Blood Pressure Mean 102 101 Blood Pressure Mean [Right Arm] 101 Blood Pressure Position [Right Arm] Pulse Oximetry 98 97 98 Oxygen Delivery Method Room Air Room Air Room Air Sepsis Recent Fever Within 48 Hours Sepsis New/Unexplained Change in Mental Status Sepsis Action Taken by Nursing 03/30/21 16:30 03/30/21 17:00 03/30/21 17:30 Temperature Temperature Source Pulse Rate - Lying Pulse Rate - Sitting Pulse Rate - Standing Pulse Rate 63 70 70 Pulse Rate [Left] Pulse Rate from SpO2 Sensor Pulse Rhythm Pulse Rhythm [Left] Pulse Strength Pulse Strength [Left] Respiratory Rate 16 21 12 Respiratory Effort / Characteristics Respiratory Depth Respiratory Pattern Blood Pressure - Lying Blood Pressure - Sitting Blood Pressure- Standing Blood Pressure 170/55 H 164/58 H 163/57 H Blood Pressure [Right Arm] Blood Pressure Mean 93 93 92 Blood Pressure Mean [Right Arm] Blood Pressure Position [Right Arm] Pulse Oximetry 98 97 97 Oxygen Delivery Method Room Air Room Air Room Air Sepsis Recent Fever Within 48 Hours Sepsis New/Unexplained Change in Mental Status Sepsis Action Taken by Intermediate Medications Current Medication List: was personally reviewed by me Laboratory Data Attestation: I reviewed the patient's lab results. Result diagrams: 03/30/21 12:27 03/30/21 12:27 Lab Results 03/30/21 03/30/21 03/30/21 Range/Units 12:27 12:27 12:27 WBC 7.52 (4.8-10.8) K/uL RBC 3.00 L (4.2-5.4) M/uL Hgb 8.1 L (12.0-16.0) g/dL Hct 25.9 L (37-47) % MCV 86.3 (80-100) fL MCH 27.0 (25-34) pg MCHC 31.3 L (32-36) g/dL RDW Std Deviation 54.7 H (36.4-46.3) fL RDW Coeff of Kris 17.4 H (11.5-14.5) % Plt Count 283 (130-400) K/uL MPV 9.1 (7.4-10.4) fL Immature Gran % (Auto) 0.0 % Neut % (Auto) 76.8 % Lymph % (Auto) 14.6 % Tate % (Auto) 6.4 % Eos % (Auto) 1.7 % Baso % (Auto) 0.5 % Neut # (Auto) 5.77 (1.4-6.5) K/uL Lymph # (Auto) 1.10 L (1.2-3.4) K/uL Tate # (Auto) 0.48 (0.11-0.59) K/uL Eos # (Auto) 0.13 (0-0.5) K/uL Baso # (Auto) 0.04 (0-0.2) K/uL Immature Gran # (Auto) 0.00 (0.00-0.02) K/uL PT 9.7 (9.0-12.0) Seconds INR 1.0 (0.9-1.1) APTT 27.3 (21.0-31.0) Seconds PTT Ratio 1.0 Sodium 134 L (136-145) mmol/L Potassium 4.2 (3.5-5.1) mmol/L Chloride 97 L (98-107) mmol/L Carbon Dioxide 27 (21-32) mmol/L Anion Gap 10.0 (3-11) BUN 78 H (7-18) mg/dl Creatinine 3.47 H (0.6-1.2) mg/dl Est Cr Clr Drug Dosing 16.2 ml/min Est GFR ( Amer) 14.1 ml/min Est GFR (Non-Af Amer) 12.2 ml/min BUN/Creatinine Ratio 22.5 H (10-20) Glucose 121 H (70-99) mg/dl Calcium 9.3 (8.5-10.1) mg/dl Magnesium 3.2 H (1.8-2.4) mg/dl Total Bilirubin 0.3 (0.2-1) mg/dl AST 14 L (15-37) U/L ALT 15 (12-78) U/L Alkaline Phosphatase 111 (45-117) U/L Total Creatine Kinase 41 (26-192) U/L Troponin I < 0.015 (0-0.045) ng/ml Total Protein 6.8 (6.4-8.2) gm/dl Albumin 3.3 L (3.4-5.0) gm/dl Globulin 3.5 (2.5-4.0) gm/dl Albumin/Globulin Ratio 1.0 (0.9-2) TSH 2.440 (0.300-4.500) uIu/ml Urine Color Urine Appearance (Clear) Urine pH (4.5-7.5) Ur Specific Avery (1.000-1.030) Urine Protein (Negative) Urine Glucose (UA) (Negative) Urine Ketones (Negative) Urine Blood (Negative) Urine Nitrite (Negative) Urine Bilirubin (Negative) Urine Urobilinogen (Negative) Ur Leukocyte Esterase (Negative) Urine WBC (Auto) (0-5) /hpf Urine RBC (Auto) (0-4) /hpf U Hyaline Cast (Auto) (0-5) /lpf U Epithel Cells (Auto) (0-5) /lpf Urine Bacteria (Auto) (Negative) COVID-19 Eval Order SARS-CoV-2 (PCR) (Negative) Blood Type Antibody Screen 03/30/21 03/30/21 03/30/21 Range/Units 14:53 16:12 16:12 WBC (4.8-10.8) K/uL RBC (4.2-5.4) M/uL Hgb (12.0-16.0) g/dL Hct (37-47) % MCV (80-100) fL MCH (25-34) pg MCHC (32-36) g/dL RDW Std Deviation (36.4-46.3) fL RDW Coeff of Kris (11.5-14.5) % Plt Count (130-400) K/uL MPV (7.4-10.4) fL Immature Gran % (Auto) % Neut % (Auto) % Lymph % (Auto) % Tate % (Auto) % Eos % (Auto) % Baso % (Auto) % Neut # (Auto) (1.4-6.5) K/uL Lymph # (Auto) (1.2-3.4) K/uL Tate # (Auto) (0.11-0.59) K/uL Eos # (Auto) (0-0.5) K/uL Baso # (Auto) (0-0.2) K/uL Immature Gran # (Auto) (0.00-0.02) K/uL PT (9.0-12.0) Seconds INR (0.9-1.1) APTT (21.0-31.0) Seconds PTT Ratio Sodium (136-145) mmol/L Potassium (3.5-5.1) mmol/L Chloride (98-107) mmol/L Carbon Dioxide (21-32) mmol/L Anion Gap (3-11) BUN (7-18) mg/dl Creatinine (0.6-1.2) mg/dl Est Cr Clr Drug Dosing ml/min Est GFR ( Amer) ml/min Est GFR (Non-Af Amer) ml/min BUN/Creatinine Ratio (10-20) Glucose (70-99) mg/dl Calcium (8.5-10.1) mg/dl Magnesium (1.8-2.4) mg/dl Total Bilirubin (0.2-1) mg/dl AST (15-37) U/L ALT (12-78) U/L Alkaline Phosphatase (45-117) U/L Total Creatine Kinase (26-192) U/L Troponin I (0-0.045) ng/ml Total Protein (6.4-8.2) gm/dl Albumin (3.4-5.0) gm/dl Globulin (2.5-4.0) gm/dl Albumin/Globulin Ratio (0.9-2) TSH (0.300-4.500) uIu/ml Urine Color Yellow Urine Appearance Clear (Clear) Urine pH 5.5 (4.5-7.5) Ur Specific Avery 1.009 (1.000-1.030) Urine Protein 1+ H (Negative) Urine Glucose (UA) Negative (Negative) Urine Ketones Negative (Negative) Urine Blood Negative (Negative) Urine Nitrite Negative (Negative) Urine Bilirubin Negative (Negative) Urine Urobilinogen Negative (Negative) Ur Leukocyte Esterase Negative (Negative) Urine WBC (Auto) 1-5 (0-5) /hpf Urine RBC (Auto) 0-4 (0-4) /hpf U Hyaline Cast (Auto) 0 (0-5) /lpf U Epithel Cells (Auto) >30 H (0-5) /lpf Urine Bacteria (Auto) Negative (Negative) COVID-19 Eval Order Covid19 at [facility] SARS-CoV-2 (PCR) NEGATIVE (Negative) Blood Type Antibody Screen 03/30/21 Range/Units 16:25 WBC (4.8-10.8) K/uL RBC (4.2-5.4) M/uL Hgb (12.0-16.0) g/dL Hct (37-47) % MCV (80-100) fL MCH (25-34) pg MCHC (32-36) g/dL RDW Std Deviation (36.4-46.3) fL RDW Coeff of Kris (11.5-14.5) % Plt Count (130-400) K/uL MPV (7.4-10.4) fL Immature Gran % (Auto) % Neut % (Auto) % Lymph % (Auto) % Tate % (Auto) % Eos % (Auto) % Baso % (Auto) % Neut # (Auto) (1.4-6.5) K/uL Lymph # (Auto) (1.2-3.4) K/uL Tate # (Auto) (0.11-0.59) K/uL Eos # (Auto) (0-0.5) K/uL Baso # (Auto) (0-0.2) K/uL Immature Gran # (Auto) (0.00-0.02) K/uL PT (9.0-12.0) Seconds INR (0.9-1.1) APTT (21.0-31.0) Seconds PTT Ratio Sodium (136-145) mmol/L Potassium (3.5-5.1) mmol/L Chloride (98-107) mmol/L Carbon Dioxide (21-32) mmol/L Anion Gap (3-11) BUN (7-18) mg/dl Creatinine (0.6-1.2) mg/dl Est Cr Clr Drug Dosing ml/min Est GFR ( Amer) ml/min Est GFR (Non-Af Amer) ml/min BUN/Creatinine Ratio (10-20) Glucose (70-99) mg/dl Calcium (8.5-10.1) mg/dl Magnesium (1.8-2.4) mg/dl Total Bilirubin (0.2-1) mg/dl AST (15-37) U/L ALT (12-78) U/L Alkaline Phosphatase (45-117) U/L Total Creatine Kinase (26-192) U/L Troponin I (0-0.045) ng/ml Total Protein (6.4-8.2) gm/dl Albumin (3.4-5.0) gm/dl Globulin (2.5-4.0) gm/dl Albumin/Globulin Ratio (0.9-2) TSH (0.300-4.500) uIu/ml Urine Color Urine Appearance (Clear) Urine pH (4.5-7.5) Ur Specific Avery (1.000-1.030) Urine Protein (Negative) Urine Glucose (UA) (Negative) Urine Ketones (Negative) Urine Blood (Negative) Urine Nitrite (Negative) Urine Bilirubin (Negative) Urine Urobilinogen (Negative) Ur Leukocyte Esterase (Negative) Urine WBC (Auto) (0-5) /hpf Urine RBC (Auto) (0-4) /hpf U Hyaline Cast (Auto) (0-5) /lpf U Epithel Cells (Auto) (0-5) /lpf Urine Bacteria (Auto) (Negative) COVID-19 Eval Order SARS-CoV-2 (PCR) (Negative) Blood Type O Positive Antibody Screen NEGATIVE Administered Medications Discontinued Medications Sodium Chloride (Nss 1000ml) 500 mls @ 999 mls/hr IV .Q31M ONE Stop: 03/30/21 15:05 Last Infusion: 03/30/21 15:26 Dose: 0 mls/hr Documented by: [id number] Admin: 03/30/21 14:55 Dose: 999 mls/hr Documented by: [id number] Pantoprazole Sodium 40 mg/ (Syringe) 10 mls @ 5 mls/min IV NOW ONE Stop: 03/30/21 16:20 Last Admin: 03/30/21 16:38 Dose: 5 mls/min Documented by: [id number] Meclizine HCl (Meclizine Hcl 25 Mg Tab) 25 mg PO NOW STA Stop: 03/30/21 14:36 Last Admin: 03/30/21 14:55 Dose: 25 mg Documented by: [id number] Imaging Data Radiologist's Impression: Chest X-Ray 03/30/21 12:43 XR chest 1V portable CLINICAL HISTORY: weakness COMPARISON STUDY: Chest CT March 07, 2018. Chest radiograph March 13, 2021. FINDINGS: Lung volumes are normal. Linear left basilar opacities reflect atelectasis or scarring. There is no pneumothorax or pleural effusion. Cardiac size is stable. Mediastinal contours are normal. There is no evidence for pulmonary edema. IMPRESSION: No acute cardiopulmonary findings. Stable cardiomegaly. ACT 112: Negative or not required by law. Electronically signed by: Conor Glasgow M.D. 03/30/2021 1:[address] 03/30/21 12:43 CT OF THE HEAD WITHOUT CONTRAST CLINICAL HISTORY: Dizziness. Weakness. COMPARISON STUDY: No previous studies for comparison. CT DOSE: 709.48 mGy.cm TECHNIQUE: Helical axial images of the head were obtained without IV contrast. Automated exposure control was utilized for the study. A dose lowering technique was utilized adhering to the principles of ALARA. FINDINGS: No acute intracranial hemorrhage, midline shift or mass effect is present. The ventricular system is unremarkable. The basal cisterns are patent. White matter hypodensity suggests small vessel disease. No extra-axial collections are present. There are no findings to suggest acute dural sinus thrombosis or acute territorial infarct. No significant calvarial abnormalities are present. Visualized portions of the sinuses and mastoid air cells are clear. IMPRESSION: No acute intracranial findings. ACT 112: Negative or not required by law. Electronically signed by: Conor Glasgow M.D. 03/30/2021 1:18 PM Discharge Plan Visit Data Chief Complaint: Hypotension Stated Complaint: LOW BLOOD PRESURE ED Provider: Jonas Pascal Discharge Problem: Acute upper gastrointestinal bleeding, Anemia, Near syncope, LESLIE (acute kidney injury) Patient Disposition: Being Evaluated by Hospitalist Forms Stand Alone Forms: My [facility] Prescriptions Prescriptions: No Action atorvastatin 40 mg Tablet 40 mg PO QPM RF: 0 Calcium 600 + D(3) 600 mg calcium- 200 unit Capsule 1 cap PO QAM RF: 0 aspirin 81 mg Tablet,Delayed Release (Dr/Ec) 81 mg PO QAM RF: 0 albuterol sulfate 5 mg/mL Solution For Nebulization 2.5 mg INHALATION Q4 PRN (Reason: Shortness Of Breath) RF: 0 loratadine 10 mg Tablet 10 mg PO QAM PRN (Reason: Allergy Symptoms) RF: 0 hydralazine 100 mg tablet 100 mg PO BID RF: 0 hydrochlorothiazide 50 mg Tablet 50 mg PO QAM RF: 0 furosemide 20 mg Tablet 20 mg PO QAM RF: 0 B-complex with vitamin C Tablet 1 tab PO QAM RF: 0 amlodipine 10 mg tablet 10 mg PO QAM RF: 0 carvedilol 3.125 mg tablet 3.125 mg PO BID RF: 0 multivitamin Tablet 1 tab PO DAILY RF: 0 ascorbic acid (vitamin C) [Vitamin C] 500 mg Tablet 500 mg PO QAM RF: 0 Dexilant 60 mg capsule,biphase delayed releas 60 mg PO PM RF: 0 nitroglycerin 0.4 mg tablet, sublingual 0.4 mg sublingual DIRECTED PRN (Reason: Chest Pain) RF: 0 trazodone 50 mg tablet 25 mg PO HS PRN (Reason: Sleep) RF: 0 Referrals Referrals: Gabbie Hunter, PADeshawnC [Primary Care Provider] -
[2021-03-30 13:28] LABS: Albumin Level 3.3 gm/dl (3.4-5.0); Aspartate Aminotransferase 14 U/L (15-37); BUN Creatinine Ratio 22.5 (10-20); Blood Urea Nitrogen 78 mg/dl (7-18); Calcium 9.3 mg/dl (8.5-10.1); Carbon Dioxide 27 mmol/L (21-32); Chloride 97 mmol/L (98-107); Creatinine Clr Calc Pharmacy 16.2 ml/min; Est GFR (African American) 14.1 ml/min; Est GFR (Non-African American) 12.2 ml/min; Glucose 121 mg/dl (70-99); Magnesium 3.2 mg/dl (1.8-2.4); Potassium 4.2 mmol/L (3.5-5.1); Sodium 134 mmol/L (136-145)
[2021-03-30 13:38] LABS: Alanine Aminotransferase 15 U/L (12-78); Alkaline Phosphatase 111 U/L (45-117); Bilirubin,Total 0.3 mg/dl (0.2-1); Creatine Kinase 41 U/L (26-192); Globulin 3.5 gm/dl (2.5-4.0); Total Protein 6.8 gm/dl (6.4-8.2); Troponin I < 0.015 ng/ml (0-0.045)
--- NOTE | 2021-03-30 13:57 | XRay Report ---
XR chest 1V portable CLINICAL HISTORY: weakness COMPARISON STUDY: Chest CT March 07, 2018. Chest radiograph March 13, 2021. FINDINGS: Lung volumes are normal. Linear left basilar opacities reflect atelectasis or scarring. The re is no pneumothorax or pleural effusion. Cardiac size is stable. Mediastinal contours are normal. T here is no evidence for pulmonary edema. IMPRESSION: No acute cardiopulmonary findings. Stable cardiomegaly. ACT 112: Negative or not required by law. Electronically signed by: Conor Glasgow M.D. 03/30/2021 1:56 PM
[2021-03-30] MEDS ORDERED: SODIUM CHLORIDE 0.9% 1000ML 500 ML IV ONE (14:35)
[2021-03-30] MEDS ORDERED: MECLIZINE HCL 25 MG TAB PO STA (14:35)
[2021-03-30 15:14] LABS: Appearance Urine Clear (Clear); Bacteria Urine Automated Negative (Negative); Bilirubin Urine Negative (Negative); Blood Urine Negative (Negative); Cast Urine Automated 0 /lpf (0-5); Color Urine Yellow; Epithelial Cell Urine Auto >30 /lpf (0-5); Glucose Urine UA Negative (Negative); Ketones Urine Negative (Negative); Leukocyte Esterase Urine Negative (Negative); Nitrite Urine Negative (Negative); Protein Urine 1+ (Negative); RBC Urine Automated 0-4 /hpf (0-4); Specific Gravity Urine 1.009 (1.000-1.030); Urobilinogen Urine Negative (Negative); pH Urine 5.5 (4.5-7.5)
[2021-03-30] MEDS ORDERED: PANTOprazole 40 MG in SYRINGE 0 ML IV ONE (16:19)
--- NOTE | 2021-03-30 17:46 | History & Physical Report ---
Date of Service March 30, 2021 Assessment & Plan (1) History of upper gastrointestinal bleeding: Plan: -Admit to [facility] with telemetry -Patient presenting from home with reports of lightheadedness with standing -In the ED, orthostatic vitals negative, Hgb 8.1 (previously 9.4 on 03/18) -Recent admission to [facility] for anemia due to GI bleeding from AVM, s/p EGD and cauterization on 03/13 -Has been receiving iron infusions as an outpatient (follows with [facility] hematol oghanna) -S/p IV PPI in the ED, continue with IV PPI twice daily -Trend H&H, transfuse as needed -Clear liquids, n.p.o. after midnight -GI consult (patient follows w/ [facility] gastro) (2) Hypertension: Plan: -BP currently elevated however improving since arrival to ED-may be contributing to lightheadedness -Continue home meds for now (amlodipine, carvedilol, hydralazine, furosemide, HCTZ) making adjustments as needed (3) Chronic kidney disease, stage 4 (severe): Plan: -Creatinine 3.4, at baseline -Has fistula in place but no plans for dialysis at this time -Follows with Dr. Bridget Martini ([facility] nephro) (4) DVT prophylaxis: Plan: -SCDs due to possible GI bleeding (5) Anemia due to GI blood loss: History of Present Illness Chief Complaint: Lightheadedness Primary Care Provider: Gabbie Hunter PA-C 76-year-old female with PMH COPD, mesenteric artery stenosis, HTN, carotid artery stenosis s/p left carotid endarterectomy, GERD, CKD stage IV, chronic anemia, and other problems listed below who presents to the ED for evaluation of lightheadedness. Patient recently admitted to [facility] 03/13 through 03/16 for symptomatic anemia due to upper GI bleeding from an AVM that required cauterization. Hgb 9.4 on discharge. Patient reports that she had her first bowel movement from being discharged from the hospital a few days ago. Stool was formed and black. Shortly after, patient reports she developed lightheadedness, dizziness, near syncope with standing. Patient denies chest pain and shortness of breath. No abdominal pain, nausea, vomiting, diarrhea. No fevers or chills. She denies urinary symptoms. In the ED, Hgb found to be 8.1. Orthostatic vitals are negative. Patient received meclizine, IV Protonix, IVF. Allergies Allergy/AdvReac Type Severity Reaction Status Date / Time Bactrim Allergy Severe ELEVATED Verified 08/15/13 14:34 POTASSIUM, BRADYCARDIC "HEART TRIED TO SHUT DOWN" sulfamethoxazole Allergy Severe ELEVATED Verified 03/30/21 14:10 POTASSIUM, BRADYCARDIC "HEART TRIED TO SHUT DOWN" trimethoprim Allergy Severe ELEVATED Verified 03/30/21 14:10 POTASSIUM, BRADYCARDIC "HEART TRIED TO SHUT DOWN" gabapentin Allergy Intermediate HALLUCINATIONS; Verified 03/30/21 14:10 SCREAMING/YELLING codeine Allergy Mild RASH, Verified 03/30/21 14:10 RAPID HEART BEAT hydromorphone [From Dilaudid] AdvReac Mild Hallucinati Verified 03/30/21 14:10 ng morphine AdvReac Unknown Unknown Verified 03/30/21 14:10 oxycodone [From Percocet] AdvReac Unknown Unknown Verified 03/30/21 14:10 Home Medications Medication Instructions Recorded Confirmed Type albuterol sulfate 5 mg/mL(0.5 %) 2.5 mg INHALATION Q4 PRN 09/16/18 03/30/21 History solution for nebulization aspirin 81 mg tablet,delayed 81 mg PO QAM 09/16/18 03/30/21 History release atorvastatin 40 mg tablet 40 mg PO QPM 09/16/18 03/30/21 History calcium carbonate-vitamin D3 600 1 cap PO QAM 09/16/18 03/30/21 History mg calcium-200 unit capsule (Calcium 600 + D(3)) loratadine 10 mg tablet 10 mg PO QAM PRN 09/16/18 03/30/21 History hydralazine 100 mg tablet 100 mg PO BID 04/19/19 03/30/21 History amlodipine 10 mg tablet 10 mg PO QAM 10/10/20 03/30/21 History carvedilol 3.125 mg tablet 3.125 mg PO BID 10/10/20 03/30/21 History ascorbic acid (vitamin C) 500 mg 500 mg PO QAM 12/10/20 03/30/21 History tablet (Vitamin C) multivitamin 1 tab PO DAILY 12/10/20 03/30/21 History B-complex with vitamin C 1 tab PO QAM 02/17/21 03/30/21 History furosemide 20 mg tablet 20 mg PO QAM 02/17/21 03/30/21 History hydrochlorothiazide 50 mg tablet 50 mg PO QAM 02/17/21 03/30/21 History dexlansoprazole 60 mg 60 mg PO PM 03/12/21 03/30/21 History capsule,biphase delayed release (Dexilant) nitroglycerin 0.4 mg sublingual 0.4 mg SUBLINGUAL DIRECTED PRN 03/30/21 03/30/21 History tablet trazodone 50 mg tablet 25 mg PO HS PRN 03/30/21 03/30/21 History Past Med/Surg History Medical History Anemia Cardiac murmur Carotid stenosis, left Left carotid endarterectomy 11/2020 [facility] with [address] Love Chronic back pain Chronic kidney disease, stage 4 (severe) Generalized weakness GERD (gastroesophageal reflux disease) Gout hx History of upper gastrointestinal bleeding Hyperlipidemia Hypertension Mesenteric artery stenosis Renal artery stenosis Surgical History History of bilateral cataract extraction History of carotid endarterectomy (12/10/20) [facility] with Dr Love History of carpal tunnel release of both wrists History of cholecystectomy History of colonoscopy with polypectomy History of esophagogastroduodenoscopy (EGD) History of laminectomy History of repair of right rotator cuff History of tooth extraction all teeth removed Family History Mother Family history of diabetes mellitus Brother Family history of diabetes mellitus Sister Family history of diabetes mellitus Other No family history of adverse response to anesthesia Social History Smoking Status: Current every day smoker Tobacco Type: Cigarettes Cigarettes Per Day: 20; Second Hand Exposure: No; Do You Dip or Chew Tobacco: No; Tobacco Cessation Education Requested by Patient: No Hx Alcohol Use: No Hx Substance Use: No Preferred Language: Azeri Communication Ability: Effective Binding Cutter Required: No Beliefs That Will Affect Care: Mu-Ism Mu-Ism Beliefs: Taoist marital status: Current Living Situation: Alone How many Children do You have: 2 Other Information That Helps Us Care for You: No Feels Safe at Home: Yes Safety Concerns: Feels Safe At This Time Assistive Devices: Denture - Upper, Denture - Lower, Hearing Aid - Bilateral, Hearing Aid - Left and Walker Assistive Devices Comment: No Hearing aides nor dentures w/patient. Review of Systems Review of Systems: ROS per HPI, all other systems reviewed and negative Physical Exam Constitutional: WD/WN, vitals as above Eyes: PERRL, conjunctivae normal, anicteric sclerae ENMT: external ear and nose normal, oropharynx normal Respiratory: normal respiratory effort, lungs clear to auscultation Cardiovascular: Rate/Rhythm: regular rate and regular rhythm Heart Sounds: + murmur (Grade 3/6, systolic) Vessels: normal peripheral pulses Extremities: + AV fistula (LUE); no edema Gastrointestinal (Abdomen): normal bowel sounds, soft, nontender, no hepatosplenomegaly Musculoskeletal: no cyanosis or clubbing, extremities motor strength 5/5 Skin: no rashes, warm and dry Neurologic: PERRL, EOMI, accommodation nl, no face palsy, no dysarthria Psychiatric: A+Ox3, euthymic affect Results & Data Results & Data ([facility]) Vital Signs (Past 12 Hours) Vital Signs Temp Pulse Pulse Resp BP BP Pulse Ox 03/30/21 16:00 67 16 189/57 H 98 03/30/21 15:30 68 14 183/62 H 97 03/30/21 15:03 65 16 189/57 H 98 03/30/21 15:00 69 17 181/77 H 98 03/30/21 14:30 65 18 96 03/30/21 14:00 64 17 173/57 H 98 03/30/21 13:30 63 16 161/56 H 100 03/30/21 13:14 73 16 173/57 H 98 03/30/21 13:00 65 18 176/70 H 99 03/30/21 12:46 98 03/30/21 12:33 63 13 100 03/30/21 12:18 100 03/30/21 12:14 76 22 173/54 H 03/30/21 11:55 36.5 C 104 H 20 180/63 H 100 Laboratory Results Short CBC 03/30/21 Range/Units 12:27 WBC 7.52 (4.8-10.8) K/uL Hgb 8.1 L (12.0-16.0) g/dL Hct 25.9 L (37-47) % Plt Count 283 (130-400) K/uL BMP 03/30/21 12:27 Sodium 134 L Potassium 4.2 Chloride 97 L Carbon Dioxide 27 BUN 78 H Creatinine 3.47 H Glucose 121 H Calcium 9.3 Cardiac Enzymes 03/30/21 Range/Units 12:27 Total Creatine Kinase 41 (26-192) U/L Troponin I < 0.015 (0-0.045) ng/ml Liver Function 03/30/21 Range/Units 12:27 Total Bilirubin 0.3 (0.2-1) mg/dl AST 14 L (15-37) U/L ALT 15 (12-78) U/L Alkaline Phosphatase 111 (45-117) U/L Albumin 3.3 L (3.4-5.0) gm/dl Urine 03/30/21 Range/Units 14:53 Urine Color Yellow Urine Appearance Clear (Clear) Urine pH 5.5 (4.5-7.5) Ur Specific [place] 1.009 (1.000-1.030) Urine Protein 1+ H (Negative) Urine Glucose (UA) Negative (Negative) Diagnostic Findings Chest X-Ray 03/30/21 12:43 XR chest 1V portable CLINICAL HISTORY: weakness COMPARISON STUDY: Chest CT March 07, 2018. Chest radiograph March 13, 2021. FINDINGS: Lung volumes are normal. Linear left basilar opacities reflect atelectasis or scarring. There is no pneumothorax or pleural effusion. Cardiac size is stable. Mediastinal contours are normal. There is no evidence for pulmonary edema. IMPRESSION: No acute cardiopulmonary findings. Stable cardiomegaly. ACT 112: Negative or not required by law. Electronically signed by: Conor Glasgow M.D. 03/30/2021 1:[address] 03/30/21 12:43 CT OF THE HEAD WITHOUT CONTRAST CLINICAL HISTORY: Dizziness. Weakness. COMPARISON STUDY: No previous studies for comparison. CT DOSE: 709.48 mGy.cm TECHNIQUE: Helical axial images of the head were obtained without IV contrast. Automated exposure control was utilized for the study. A dose lowering technique was utilized adhering to the principles of ALARA. FINDINGS: No acute intracranial hemorrhage, midline shift or mass effect is present. The ventricular system is unremarkable. The basal cisterns are patent. White matter hypodensity suggests small vessel disease. No extra-axial collections are present. There are no findings to suggest acute dural sinus thrombosis or acute territorial infarct. No significant calvarial abnormalities are present. Visualized portions of the sinuses and mastoid air cells are clear. IMPRESSION: No acute intracranial findings. ACT 112: Negative or not required by law. Electronically signed by: Conor Glasgow M.D. 03/30/2021 1:18 PM Code Status & VTE Plan Code Status Patient is a full code as per my discussion with her. VTE Prophylaxis Plan VTE Prophylaxis will be ordered: Yes Supervising Physician Co-Signing Physician Notes I have seen and examined the patient and have discussed the case with the provider above. I agree with the assessment and plan as stated. Symptomatic anemia with ongoing lightheadedness and fall in H/H. 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 Discharged with ongoing dexilant and iron supplementation. ROS is limited as patient "feels crappy" and isn't interested in answering questions. Reports continuing to smoke 1 ppd cigarettes. Reports severe constipation until just a couple of days ago (approx 10 days without a BM). My physical exam reflects that above. Will transfuse one unit now, cont PPI as stated above and consult GI for recommendations. DO Immanuel (1) Hypertension Hypertension type: unspecified Qualified Code(s): I10 - Essential (primary) hypertension
[2021-03-30] MEDS ORDERED: ACETAMINOPHEN 325 MG TAB PO PRN (19:31)
[2021-03-30] MEDS ORDERED: ONDANSETRON INJ 2 MG/ML 2 ML VIAL IV PRN (19:31)
[2021-03-30 20:13] LABS: Hematocrit (blood only) 22.8 % (37-47); Hemoglobin 7.3 g/dL (12.0-16.0)
[2021-03-30] MEDS: ATORVASTATIN 40 MG TAB PO SCH (20:41)
[2021-03-30] MEDS: hydrALAZINE TAB 50 MG TAB PO SCH (20:41)
[2021-03-30] MEDS: PANTOprazole 40 MG in SYRINGE 0 ML IV SCH (20:42)
[2021-03-30] MEDS: carvediloL 3.125 MG TAB PO SCH (20:42)
[2021-03-30] MEDS ORDERED: ACETAMINOPHEN 325 MG TAB PO ONE (21:59)
[2021-03-30] MEDS ORDERED: SODIUM CHLORIDE 0.9% 250 ML IV PRN (21:59)
[2021-03-30] MEDS ORDERED: diphenhydrAMINE Capsule 25 MG CAP PO ONE (21:59)
[2021-03-30] MEDS ORDERED: diphenhydrAMINE 50 MG/ML VIAL IV ONE (22:55)
[2021-03-31] MEDS: NICOTINE 21 MG/24 HR TDSY TD SCH (05:23)
[2021-03-31 06:52] LABS: Hematocrit (blood only) 25.9 % (37-47); Hemoglobin 8.4 g/dL (12.0-16.0); Mean Corpuscular Hemoglobin 27.5 pg (25-34); Mean Corpuscular Hgb Conc 32.4 g/dL (32-36); Mean Corpuscular Volume 84.6 fL (80-100); Mean Platelet Volume 8.9 fL (7.4-10.4); Platelet Count 221 K/uL (130-400); RDW Coefficient of Variation 16.6 % (11.5-14.5); RDW Standard Deviation 51.3 fL (36.4-46.3); Red Blood Count 3.06 M/uL (4.2-5.4); White Blood Count 6.19 K/uL (4.8-10.8)
[2021-03-31 07:36] LABS: BUN Creatinine Ratio 22.6 (10-20); Calcium 8.9 mg/dl (8.5-10.1); Creatinine Clr Calc Pharmacy 16.8 ml/min; Potassium 3.6 mmol/L (3.5-5.1)
--- NOTE | 2021-03-31 08:05 | XRay Report ---
SINGLE VIEW CHEST CLINICAL HISTORY: Dyspnea. FINDINGS: An AP, portable, upright chest radiograph is compared to study dated 03/30/2021. The heart i s enlarged noting atherosclerotic calcification of the thoracic aorta. The pulmonary vasculature is n oncongested. Scarring/atelectasis is seen at both lung bases. No airspace consolidation or large pleu ral effusion is identified. No pneumothorax is seen. The skeletal structures are osteopenic. The bony thorax is grossly intact. IMPRESSION: Cardiomegaly with no acute cardiopulmonary abnormality. ACT 112: Negative or not required by law. Electronically signed by: Christoph Freeman M.D. 03/31/2021 8:04 AM
--- NOTE | 2021-03-31 08:40 | Gastrointestinal Consultation ---
Date of Consultation March 31, 2021 Assessment & Plan (1) Acute upper gastrointestinal bleeding: Anemia: Patient presented to the emergency department with symptomatic anemia. She has received 1 unit of packed red blood cells since admission. Hemoglobin 8.4/hematocrit 25.9 this morning. She has a history of hemorrhagic gastritis with proximal jejunal AVMs. Plan for today is small bowel enteroscopy to further evaluate. Procedure and risks explained to patient which include but not limited to medication reaction, bleeding, perforation, aspiration, and missed lesions. Verbalizes understanding and is agreeable to proceed. Patient is agreement plan of care. She has asked me to call her daughter, Becky, to update her on plan of care. I did speak to Becky this morning who is also in agreement with plan of care. Maintain n.p.o. status, IV fluids, IV Protonix 40 mg twice daily. Please refer to supervising physician addendum for further recommendations. Supervising Physician Co-Signing Physician Notes I have seen and examined the patient. I agree with note above by MAREN Iyer except as noted below. HPI No abd pain PE Abdomen pos bs, soft, no guarding nor rebound A/P Melena---probalbe UGI bleeding. Plan SB enteroscopy today to evaluate for SB AVMS which have thought to be source or bleeding in the past. Procedure and risks explained to patient which include but not limited to medication reaction, bleeding, perforation, aspiration, and missed lesions. History of Present Illness Attending Physician: Karoline Car MD History of Present Illness The patient is a pleasant 76-year-old female with past medical history to include anemia, cardiac murmur, chronic back pain, stage IV kidney disease, COPD, GERD, gout, hyperlipidemia, hypertension, peripheral arterial disease, tobacco use disorder who presented to the emergency department 03/30/2021 due to complaints of dizziness worsening with positional changes, fatigue, weakness, just overall not feeling well who was subsequently admitted for symptomatic anemia. The GI service was consulted due to her recent history of hemorrhagic gastritis with proximal jejunal AVMs that were cauterized. 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 Treated with argon plasma coagulation (APC). - Erythematous duodenopathy in the gastric fundus. - Medium-sized hiatal hernia. - No specimens collected. 10/11/2020: EGD notes are reviewed performed due to iron deficiency anemia secondary to chronic blood loss and melena which demonstrated a regular Z-line found 39 cm from incisors; examined esophagus was normal; a single 5 mm bharati isessile polyp with no bleeding and no stigmata of recent bleeding found the gastric body; examined duodenum was normal. No specimens were collected. 06/16/2019: Small bowel enteroscopy performed by Dr. 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 04/26/2019: EGD performed by Dr. Méndez due to iron deficiency anemia and heme positive stool demonstrated a regular Z-line found 37 cm from incisors; examined esophagus was normal; entire stomach was normal; ampulla and examined duodenum were normal. 09/22/2018: Colonoscopy notes reviewed performed by Dr. Méndez due to melena and iron deficiency anemia demonstrated a 5 mm polyp in the sigmoid colon, 7 mm polyp in the ascending colon, 8 mm polyp in the sigmoid colon all of which were removed. Pathology demonstrated hyperplastic polyps On exam/interview today, the patient reports that she began having increasing fatigue, weakness, dizziness at home prompting return to the emergency depar tment. She states she has not epigastric and right upper quadrant discomfort. Denies any nausea or vomiting. She states that she did have some black stool noted with last bowel movement. She received iron transfusion on last week and was scheduled to have iron this week again. Prior abdominal surgical history includes cholecystectomy. The patient is a current smoker. She is been smoking 1 pack of cigarettes per day for at least the last 50 years. Denies any alcohol use. Denies use of recreational drugs including marijuana. She is . She has 4 adult children and multiple grandchildren and great-grandchildren. She retired at the age of 62. Allergies Allergy/AdvReac Type Severity Reaction Status Date / Time Bactrim Allergy Severe ELEVATED Verified 08/15/13 14:34 POTASSIUM, BRADYCARDIC "HEART TRIED TO SHUT DOWN" sulfamethoxazole Allergy Severe ELEVATED Verified 03/31/21 14:33 POTASSIUM, BRADYCARDIC "HEART TRIED TO SHUT DOWN" trimethoprim Allergy Severe ELEVATED Verified 03/31/21 14:33 POTASSIUM, BRADYCARDIC "HEART TRIED TO SHUT DOWN" gabapentin Allergy Intermediate HALLUCINATIONS; Verified 03/31/21 14:33 SCREAMING/YELLING codeine Allergy Mild RASH, Verified 03/31/21 14:33 RAPID HEART BEAT hydromorphone [From Dilaudid] AdvReac Mild Hallucinati Verified 03/31/21 14:33 ng morphine AdvReac Unknown Unknown Verified 03/31/21 14:33 oxycodone [From Percocet] AdvReac Unknown Unknown Verified 03/31/21 14:33 Home Medications Medication Instructions Recorded Confirmed Type albuterol sulfate 5 mg/mL(0.5 %) 2.5 mg INHALATION Q4 PRN 09/16/18 03/30/21 History solution for nebulization aspirin 81 mg tablet,delayed 81 mg PO QAM 09/16/18 03/30/21 History release atorvastatin 40 mg tablet 40 mg PO QPM 09/16/18 03/30/21 History calcium carbonate-vitamin D3 600 1 cap PO QAM 09/16/18 03/30/21 History mg calcium-200 unit capsule (Calcium 600 + D(3)) loratadine 10 mg tablet 10 mg PO QAM PRN 09/16/18 03/30/21 History hydralazine 100 mg tablet 100 mg PO BID 04/19/19 03/30/21 History amlodipine 10 mg tablet 10 mg PO QAM 10/10/20 03/30/21 History carvedilol 3.125 mg tablet 3.125 mg PO BID 10/10/20 03/30/21 History ascorbic acid (vitamin C) 500 mg 500 mg PO QAM 12/10/20 03/30/21 History tablet (Vitamin C) multivitamin 1 tab PO DAILY 12/10/20 03/30/21 History B-complex with vitamin C 1 tab PO QAM 02/17/21 03/30/21 History furosemide 20 mg tablet 20 mg PO QAM 02/17/21 03/30/21 History hydrochlorothiazide 50 mg tablet 50 mg PO QAM 02/17/21 03/30/21 History dexlansoprazole 60 mg 60 mg PO PM 03/12/21 03/30/21 History capsule,biphase delayed release (Dexilant) nitroglycerin 0.4 mg sublingual 0.4 mg SUBLINGUAL DIRECTED PRN 03/30/21 03/30/21 History tablet trazodone 50 mg tablet 25 mg PO HS PRN 03/30/21 03/30/21 History Patient History Medical History Anemia Cardiac murmur Carotid stenosis, left Left carotid endarterectomy 11/2020 [facility] with Dr Love Chronic back pain Chronic kidney disease, stage 4 (severe) Generalized weakness GERD (gastroesophageal reflux disease) Gout hx History of upper gastrointestinal bleeding Hyperlipidemia Hypertension Mesenteric artery stenosis Renal artery stenosis Surgical History History of bilateral cataract extraction History of carotid endarterectomy (12/10/20) [facility] with Dr Love History of carpal tunnel release of both wrists History of cholecystectomy History of colonoscopy with polypectomy History of esophagogastroduodenoscopy (EGD) History of laminectomy History of repair of right rotator cuff History of tooth extraction all teeth removed Family History Mother Family history of diabetes mellitus Brother Family history of diabetes mellitus Sister Family history of diabetes mellitus Other No family history of adverse response to anesthesia Social History Smoking Status: Current every day smoker Tobacco Type: Cigarettes Cigarettes Per Day: 20; Second Hand Exposure: No; Do You Dip or Chew Tobacco: No; Tobacco Cessation Education Requested by Patient: No Hx Alcohol Use: No Hx Substance Use: No Preferred Language: Kazakh Communication Ability: Effective Riverboat 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 Review of Systems Review of Systems: All systems reviewed & are unremarkable except as noted in Subjective Physical Exam Constitutional: WD/WN, vitals as above + ill appearing (chronically) Respiratory: normal respiratory effort, lungs clear to auscultation Cardiovascular: RRR, no murmur, no edema Gastrointestinal (Abdomen): Inspection/Auscultation: abdomen normal to inspection and normal bowel sounds; abdomen not distended Percussion/Palpation: + abdomen tender (epigastric) and abdomen soft; no guarding and abdomen not rigid Psychiatric: A+Ox3, euthymic affect Affect: + flat affect Results & Data ([facility]) Vital Signs (Past 12 Hours) Vital Signs Temp Pulse Pulse Resp BP BP Pulse Ox 03/31/21 07:20 36.8 C 66 18 176/65 H 93 03/31/21 04:00 36.7 C 61 18 167/61 H 96 03/31/21 03:50 37.0 C 64 18 150/76 H 96 03/31/21 03:00 36.8 C 60 18 153/62 H 96 03/31/21 02:00 36.8 C 60 16 128/49 L 96 03/31/21 01:30 37.0 C 60 18 145/54 H 96 03/31/21 01:15 36.9 C 60 18 134/55 L 03/31/21 00:54 37.1 C 60 18 144/56 H 03/30/21 23:00 37.2 C 67 18 138/61 96 03/30/21 22:19 63 Laboratory Results Laboratory Results - last 24 hr 03/30/21 03/30/21 03/30/21 12:27 12:27 12:27 WBC 7.52 RBC 3.00 L Hgb 8.1 L Hct 25.9 L MCV 86.3 MCH 27.0 MCHC 31.3 L RDW Std Deviation 54.7 H RDW Coeff of Kris 17.4 H Plt Count 283 MPV 9.1 Immature Gran % (Auto) 0.0 Neut % (Auto) 76.8 Lymph % (Auto) 14.6 [place] % (Auto) 6.4 Eos % (Auto) 1.7 Baso % (Auto) 0.5 Neut # (Auto) 5.77 Lymph # (Auto) 1.10 L [place] # (Auto) 0.48 Eos # (Auto) 0.13 Baso # (Auto) 0.04 Immature Gran # (Auto) 0.00 PT 9.7 INR 1.0 APTT 27.3 PTT Ratio 1.0 Sodium 134 L Potassium 4.2 Chloride 97 L Carbon Dioxide 27 Anion Gap 10.0 BUN 78 H Creatinine 3.47 H Est Cr Clr Drug Dosing 16.2 Est GFR ( Amer) 14.1 Est GFR (Non-Af Amer) 12.2 BUN/Creatinine Ratio 22.5 H Glucose 121 H Calcium 9.3 Magnesium 3.2 H Total Bilirubin 0.3 AST 14 L ALT 15 Alkaline Phosphatase 111 Total Creatine Kinase 41 Troponin I < 0.015 Total Protein 6.8 Albumin 3.3 L Globulin 3.5 Albumin/Globulin Ratio 1.0 TSH 2.440 Urine Color Urine Appearance Urine pH Ur Specific [place] Urine Protein Urine Glucose (UA) Urine Ketones Urine Blood Urine Nitrite Urine Bilirubin Urine Urobilinogen Ur Leukocyte Esterase Urine WBC (Auto) Urine RBC (Auto) U Hyaline Cast (Auto) U Epithel Cells (Auto) Urine Bacteria (Auto) COVID-19 Eval Order SARS-CoV-2 (PCR) Blood Type Antibody Screen Crossmatch 03/30/21 03/30/21 03/30/21 14:53 16:12 16:12 WBC RBC Hgb Hct MCV MCH MCHC RDW Std Deviation RDW Coeff of Kris Plt Count MPV Immature Gran % (Auto) Neut % (Auto) Lymph % (Auto) [place] % (Auto) Eos % (Auto) Baso % (Auto) Neut # (Auto) Lymph # (Auto) [place] # (Auto) Eos # (Auto) Baso # (Auto) Immature Gran # (Auto) PT INR APTT PTT Ratio Sodium Potassium Chloride Carbon Dioxide Anion Gap BUN Creatinine Est Cr Clr Drug Dosing Est GFR ( Amer) Est GFR (Non-Af Amer) BUN/Creatinine Ratio Glucose Calcium Magnesium Total Bilirubin AST ALT Alkaline Phosphatase Total Creatine Kinase Troponin I Total Protein Albumin Globulin Albumin/Globulin Ratio TSH Urine Color Yellow Urine Appearance Clear Urine pH 5.5 Ur Specific [place] 1.009 Urine Protein 1+ H Urine Glucose (UA) Negative Urine Ketones Negative Urine Blood Negative Urine Nitrite Negative Urine Bilirubin Negative Urine Urobilinogen Negative Ur Leukocyte Esterase Negative Urine WBC (Auto) 1-5 Urine RBC (Auto) 0-4 U Hyaline Cast (Auto) 0 U Epithel Cells (Auto) >30 H Urine Bacteria (Auto) Negative COVID-19 Eval Order Covid19 at [facility] SARS-CoV-2 (PCR) NEGATIVE Blood Type Antibody Screen Crossmatch 03/30/21 03/30/21 03/31/21 16:25 20:00 06:17 WBC 6.19 RBC 3.06 L Hgb 7.3 L 8.4 L Hct 22.8 L 25.9 L MCV 84.6 MCH 27.5 MCHC 32.4 RDW Std Deviation 51.3 H RDW Coeff of Kris 16.6 H Plt Count 221 MPV 8.9 Immature Gran % (Auto) Neut % (Auto) Lymph % (Auto) [place] % (Auto) Eos % (Auto) Baso % (Auto) Neut # (Auto) Lymph # (Auto) [place] # (Auto) Eos # (Auto) Baso # (Auto) Immature Gran # (Auto) PT INR APTT PTT Ratio Sodium Potassium Chloride Carbon Dioxide Anion Gap BUN Creatinine Est Cr Clr Drug Dosing Est GFR ( Amer) Est GFR (Non-Af Amer) BUN/Creatinine Ratio Glucose Calcium Magnesium Total Bilirubin AST ALT Alkaline Phosphatase Total Creatine Kinase Troponin I Total Protein Albumin Globulin Albumin/Globulin Ratio TSH Urine Color Urine Appearance Urine pH Ur Specific [place] Urine Protein Urine Glucose (UA) Urine Ketones Urine Blood Urine Nitrite Urine Bilirubin Urine Urobilinogen Ur Leukocyte Esterase Urine WBC (Auto) Urine RBC (Auto) U Hyaline Cast (Auto) U Epithel Cells (Auto) Urine Bacteria (Auto) COVID-19 Eval Order SARS-CoV-2 (PCR) Blood Type O Positive Antibody Screen NEGATIVE Crossmatch See Detail 03/31/21 06:17 WBC RBC Hgb Hct MCV MCH MCHC RDW Std Deviation RDW Coeff of Kris Plt Count MPV Immature Gran % (Auto) Neut % (Auto) Lymph % (Auto) [place] % (Auto) Eos % (Auto) Baso % (Auto) Neut # (Auto) Lymph # (Auto) [place] # (Auto) Eos # (Auto) Baso # (Auto) Immature Gran # (Auto) PT INR APTT PTT Ratio Sodium 135 L Potassium 3.6 Chloride 100 Carbon Dioxide 27 Anion Gap 8.0 BUN 74 H Creatinine 3.29 H Est Cr Clr Drug Dosing 16.8 Est GFR ( Amer) 15.0 Est GFR (Non-Af Amer) 13.0 BUN/Creatinine Ratio 22.6 H Glucose 91 Calcium 8.9 Magnesium Total Bilirubin AST ALT Alkaline Phosphatase Total Creatine Kinase Troponin I Total Protein Albumin Globulin Albumin/Globulin Ratio TSH Urine Color Urine Appearance Urine pH Ur Specific [place] Urine Protein Urine Glucose (UA) Urine Ketones Urine Blood Urine Nitrite Urine Bilirubin Urine Urobilinogen Ur Leukocyte Esterase Urine WBC (Auto) Urine RBC (Auto) U Hyaline Cast (Auto) U Epithel Cells (Auto) Urine Bacteria (Auto) COVID-19 Eval Order SARS-CoV-2 (PCR) Blood Type Antibody Screen Crossmatch
[2021-03-31] MEDS: hydrALAZINE TAB 50 MG TAB PO SCH ×2 (09:53→20:34)
[2021-03-31] MEDS: carvediloL 3.125 MG TAB PO SCH ×2 (09:53→20:34)
[2021-03-31] MEDS: amLODIPine BESYLATE 5 MG TAB PO SCH (09:53)
[2021-03-31] MEDS: FUROSEMIDE 20 MG TAB PO SCH (09:53)
[2021-03-31] MEDS: hydroCHLOROthiazide 25 MG TAB PO SCH (09:53)
[2021-03-31] MEDS: PANTOprazole 40 MG in SYRINGE 0 ML IV SCH (09:54)
--- NOTE | 2021-03-31 10:39 | Anesthesiology Consultation ---
Date of Service March 31, 2021 Assessment & Plan (1) Encounter for pre-operative examination: Chart Review Chart Review: Acceptable Risk for Surgery and Patient NOT seen in Pre Admission Testing Consults Requested none History Surgery Operation Date: 03/31/21 16:45 Proposed Procedures p Esophagogastroduodenoscopy Dr Carley Howe Operation Date: 04/01/21 16:30 Proposed Procedures p Esophagogastroduodenoscopy Dr Carley Howe Height/Weight Height: 5 ft 6 in Weight: 94.4 kg Allergies Allergy/AdvReac Type Severity Reaction Status Date / Time Bactrim Allergy Severe ELEVATED Verified 08/15/13 14:34 POTASSIUM, BRADYCARDIC "HEART TRIED TO SHUT DOWN" sulfamethoxazole Allergy Severe ELEVATED Verified 03/30/21 14:10 POTASSIUM, BRADYCARDIC "HEART TRIED TO SHUT DOWN" trimethoprim Allergy Severe ELEVATED Verified 03/30/21 14:10 POTASSIUM, BRADYCARDIC "HEART TRIED TO SHUT DOWN" gabapentin Allergy Intermediate HALLUCINATIONS; Verified 03/30/21 14:10 SCREAMING/YELLING codeine Allergy Mild RASH, Verified 03/30/21 14:10 RAPID HEART BEAT hydromorphone [From Dilaudid] AdvReac Mild Hallucinati Verified 03/30/21 14:10 ng morphine AdvReac Unknown Unknown Verified 03/30/21 14:10 oxycodone [From Percocet] AdvReac Unknown Unknown Verified 03/30/21 14:10 Medications Home Medications Medication Instructions Recorded Confirmed Last Taken albuterol sulfate 5 mg/mL(0.5 %) 2.5 mg INHALATION Q4 PRN 09/16/18 03/30/21 03/28/21 solution for nebulization aspirin 81 mg tablet,delayed 81 mg PO QAM 09/16/18 03/30/21 03/30/21 release atorvastatin 40 mg tablet 40 mg PO QPM 09/16/18 03/30/21 03/29/21 calcium carbonate-vitamin D3 600 1 cap PO QAM 09/16/18 03/30/21 03/30/21 mg calcium-200 unit capsule (Calcium 600 + D(3)) loratadine 10 mg tablet 10 mg PO QAM PRN 09/16/18 03/30/21 03/26/21 hydralazine 100 mg tablet 100 mg PO BID 04/19/19 03/30/21 03/30/21 amlodipine 10 mg tablet 10 mg PO QAM 10/10/20 03/30/21 03/30/21 carvedilol 3.125 mg tablet 3.125 mg PO BID 10/10/20 03/30/21 03/29/21 ascorbic acid (vitamin C) 500 mg 500 mg PO QAM 12/10/20 03/30/21 03/30/21 tablet (Vitamin C) multivitamin 1 tab PO DAILY 12/10/20 03/30/21 03/30/21 B-complex with vitamin C 1 tab PO QAM 02/17/21 03/30/21 03/30/21 furosemide 20 mg tablet 20 mg PO QAM 02/17/21 03/30/21 03/30/21 hydrochlorothiazide 50 mg tablet 50 mg PO QAM 02/17/21 03/30/21 03/30/21 dexlansoprazole 60 mg 60 mg PO PM 03/12/21 03/30/21 03/29/21 capsule,biphase delayed release (Dexilant) nitroglycerin 0.4 mg sublingual 0.4 mg SUBLINGUAL DIRECTED PRN 03/30/21 03/30/21 Unknown tablet trazodone 50 mg tablet 25 mg PO HS PRN 03/30/21 03/30/21 03/29/21 25 mg Active Medications Generic Name Dose Route Start Last Admin Trade Name Edouardq PRN Reason Stop Dose Admin Amlodipine Besylate 10 mg 03/31/21 09:00 03/31/21 09:53 Amlodipine Besylate 5 Mg Tab PO 04/30/21 08:59 10 mg QAM EVON Administration Atorvastatin Calcium 40 mg 03/30/21 21:00 03/30/21 20:41 Atorvastatin 40 Mg Tab PO 04/29/21 20:59 40 mg QPM EVON Administration Carvedilol 3.125 mg 03/30/21 21:00 03/31/21 09:53 Carvedilol 3.125 Mg Tab PO 04/29/21 20:59 3.125 mg BID EVON Administration Furosemide 20 mg 03/31/21 09:00 03/31/21 09:53 Furosemide 20 Mg Tab PO 04/30/21 08:59 20 mg QAM EVON Administration Hydralazine HCl 100 mg 03/30/21 21:00 03/31/21 09:53 Hydralazine Tab 50 Mg Tab PO 04/29/21 20:59 100 mg BID EVON Administration Hydrochlorothiazide 50 mg 03/31/21 09:00 03/31/21 09:53 Hydrochlorothiazide 25 Mg Tab PO 04/30/21 08:59 50 mg QAM EVON Administration Pantoprazole Sodium 40 mg/ 10 mls @ 5 mls/min 03/30/21 21:00 03/31/21 09:54 Syringe IV 04/29/21 20:59 5 mls/min BID EVON Administration Miscellaneous 1 ea 03/31/21 04:59 03/31/21 05:23 Remove Nicoderm Patch N/A 04/30/21 04:58 Not Given Q24H EVON Nicotine 21 mg 03/31/21 05:00 03/31/21 05:23 Nicotine 21 Mg/24 Hr Tdsy TD 04/30/21 04:59 21 mg Q24H EVON Administration Past Medical History Medical History Anemia Cardiac murmur Carotid stenosis, left Left carotid endarterectomy 11/2020 [facility] with Dr Love Chronic back pain Chronic kidney disease, stage 4 (severe) Generalized weakness GERD (gastroesophageal reflux disease) Gout hx History of upper gastrointestinal bleeding Hyperlipidemia Hypertension Mesenteric artery stenosis Renal artery stenosis Past Family History Family History Mother Family history of diabetes mellitus Brother Family history of diabetes mellitus Sister Family history of diabetes mellitus Other No family history of adverse response to anesthesia Past Surgical History Surgical History History of bilateral cataract extraction History of carotid endarterectomy (12/10/20) [facility] with Dr Love History of carpal tunnel release of both wrists History of cholecystectomy History of colonoscopy with polypectomy History of esophagogastroduodenoscopy (EGD) History of laminectomy History of repair of right rotator cuff History of tooth extraction all teeth removed Social History Smoking Status: Current every day smoker tobacco type: cigarettes Smoking cigarettes per day: 20 Do You Dip or Chew Tobacco: No Hx Alcohol Use: No Alcohol type: wine alcohol intake frequency: holidays/special occasions only Hx Substance Use: No substance use type: does not use Physical Exam Vital Signs Last Vital Signs Temp 98.2 F 03/31/21 07:20 Pulse 66 03/31/21 07:20 Resp 18 03/31/21 07:20 BP 176/65 H 03/31/21 07:20 Pulse Ox 93 03/31/21 07:20 Testing Laboratory Results 03/31/21 06:17 03/31/21 06:17 PT 9.7 Seconds (9.0-12.0) 03/30/21 12:27 INR 1.0 (0.9-1.1) 03/30/21 12:27 APTT 27.3 Seconds (21.0-31.0) 03/30/21 12:27 Urine Color Yellow 03/30/21 14:53 Urine Appearance Clear (Clear) 03/30/21 14:53 Urine pH 5.5 (4.5-7.5) 03/30/21 14:53 Ur Specific [place] 1.009 (1.000-1.030) 03/30/21 14:53 Urine Protein 1+ (Negative) H 03/30/21 14:53 Urine Glucose (UA) Negative (Negative) 03/30/21 14:53 Urine Ketones Negative (Negative) 03/30/21 14:53 Urine Nitrite Negative (Negative) 03/30/21 14:53 Ur Leukocyte Esterase Negative (Negative) 03/30/21 14:53 Urine WBC (Auto) 1-5 /hpf (0-5) 03/30/21 14:53 Urine RBC (Auto) 0-4 /hpf (0-4) 03/30/21 14:53 U Hyaline Cast (Auto) 0 /lpf (0-5) 03/30/21 14:53 U Epithel Cells (Auto) >30 /lpf (0-5) H 03/30/21 14:53 Urine Bacteria (Auto) Negative (Negative) 03/30/21 14:53 Blood Type O Positive 03/30/21 16:25 Antibody Screen NEGATIVE 03/30/21 16:25 Electrocardiogram Date: 03/30/21 Findings: + NSR @ 1st degree AV block
--- NOTE | 2021-03-31 12:02 | Electrocardiogram Report ---
Test Reason : Blood Pressure : / mmHG Vent. Rate : 074 BPM Atrial Rate : 074 BPM P-R Int : 246 ms QRS Dur : 094 ms QT Int : 428 ms P-R-T Axes : 008 004 065 degrees QTc Int : 475 ms Sinus rhythm with 1st degree A-V block with occasional Premature ventricular complexes Otherwise normal ECG When compared with ECG of 12-MAR-2021 20:17, Premature ventricular complexes are now Present Confirmed by Jonas Saha ([id number]) on 03/31/2021 12:02:08 PM Referred By: Confirmed By:Jonas Saha
--- NOTE | 2021-03-31 14:39 | Hospitalist Progress Note ---
Date of Service March 31, 2021 Assessment & Plan (1) History of upper gastrointestinal bleeding: Plan: -Patient presenting from home with reports of lightheadedness with standing -In the ED, orthostatic vitals negative, Hgb 8.1 (previously 9.4 on 03/18) -Recent admission to [facility] for anemia due to GI bleeding from AVM, s/p EGD and cauterization on 03/13 -Has been receiving iron infusions as an outpatient (follows with [facility] hematology) -Continue with IV PPI twice daily -Trend daily CBC. Pressure GI input. Plan for EGD today. (2) Hypertension: Plan: -Continue home meds for now (amlodipine, carvedilol, hydralazine, furosemide, HCTZ) (3) Chronic kidney disease, stage 4 (severe): Plan: -Creatinine 3.4, at baseline. Today at 3.29. -Has fistula in place but no plans for dialysis at this time -Follows with Dr. Bridget Martini ([facility] nephro) (4) DVT prophylaxis: Plan: -SCDs due to possible GI bleeding (5) Anemia due to GI blood loss: Admission and Anticipated Discharge Date Admission Date: March 30, 2021 Subjective Doing okay this morning. Remains NPO. Hemoglobin at 8.4 this morning. Review of system is negative. Review of Systems Review of Systems: All systems reviewed & are unremarkable except as noted in HPI & below Physical Exam Physical Exam: General: A&Ox3 HENT: NCAT, MMM, EOMI Eyes: PERRLA Neck: Supple, normal range of motion CVS: normal rate and rhythm Resp: b/l good breath sounds Abdomen: Soft, ND/NT Extremities: Absence of any edema Neuro: face symmetric, no gross focal deficits appreciated Skin: warm and dry, no rashes/lesions/errythema MSK: normal ROM, no joint swelling/erythema Results & Data Results & Data ([facility]) Vital Signs (Past 12 Hours) Vital Signs Temp Pulse Pulse Resp BP BP Pulse Ox 03/31/21 11:45 37 C 65 18 141/58 H 92 03/31/21 08:00 62 03/31/21 07:20 36.8 C 66 18 176/65 H 93 03/31/21 04:00 36.7 C 61 18 167/61 H 96 03/31/21 03:50 37.0 C 64 18 150/76 H 96 03/31/21 03:00 36.8 C 60 18 153/62 H 96 (1) Hypertension Hypertension type: unspecified Qualified Code(s): I10 - Essential (primary) hypertension
[2021-03-31] MEDS ORDERED: PROPOFOL IV EMULSION 10 MG/ML 20 ML VIAL IV ONE ×2 (14:47→15:27)
[2021-03-31] MEDS ORDERED: LIDOCAINE 2% 2 ML VIAL/AMP(20MG/ML) INFIL ONE (14:47)
[2021-03-31] MEDS ORDERED: GLYCOPYRROLATE 0.2 MG/ML VIAL ONE (15:27)
--- NOTE | 2021-03-31 15:39 | GI REPORT ---
Patient Name: Toña Chapin Procedure Date: 03/31/2021 2:46 PM Date of : 1945 Admit Type: Inpatient Age: 76 Gender: Female Attending MD: Edward Howe MD Procedure: Small bowel enteroscopy Providers: Edward Howe MD Referring MD: Karoline Car Md Indications: Melena, history of jejenal AVMs Medicines: Monitored Anesthesia Care Complications: No immediate complications. Estimated blood loss: Minimal. Estimated Blood Loss: Estimated blood loss was minimal. Procedure: Pre-Anesthesia Assessment: - The risks and benefits of the procedure and the sedation options and risks were discussed with the patient. All questions were answered and informed consent was obtained. The Colonoscope was introduced through the mouth and advanced to the jejunum, to the 160 cm lilliam (from the incisors). The small bowel enteroscopy was accomplished without difficulty. The patient tolerated the procedure well. Procedure and risks explained to patient which include but not limited to medication reaction, bleeding, perforation, aspiration , and missed lesions. Judicious gas insufflation was used and gas removal done on the way out. The lumen was always visualized when advancing the scope. Prep was good. Washes and suctioning used as needed to get good visualization of the mucosa. Retroflexion to look at the fundus and cardia of the stomach and GE junction was done. Findings: The Z-line was irregular and was found 40 cm from the incisors. A 2 cm hiatal hernia was present. Patchy mildly friable mucosa with contact bleeding was found on the lesser curvature of the gastric body. Localized nodular mucosa was found in the second portion of the duodenum. Biopsies were taken with a cold forceps for histology. Estimated blood loss was minimal. One angioectasia with no bleeding was found in the second portion of the duodenum. Coagulation for bleeding prevention using argon plasma at 0.8 liters/minute and 20 pina was successful. Estimated blood loss: none. Seven angioectasias with no bleeding were found in the entire examined portion of jejunum. Coagulation for bleeding prevention using argon plasma at 0.8 liters/minute and 20 pina was successful. Estimated blood loss was minimal. Exam otherwise normal. Impression: - Z-line irregular, 40 cm from the incisors. - 2 cm hiatal hernia. - Friable gastric mucosa. - Nodular mucosa in the second portion of the duodenum. Biopsied. - One non-bleeding angioectasia in the duodenum. Treated with argon plasma coagulation (APC). 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 Treated with argon plasma coagulation (APC). - Exam otherwise normal. Recommendation: - [facility] for [facility] care. Edward Howe M.D. Edward Howe MD 03/31/2021 3:38:55 PM This report has been signed electronically. Note Initiated On: 03/31/2021 2:46 PM Number of Addenda: 0 I attest to the content of the Intraoperative Record and orders documented therein, exceptions below {[id number]}
--- NOTE | 2021-03-31 16:05 | Anesthesiology Progress Note ---
Date of Service March 31, 2021 Anesthesia Post Procedure Vital Signs Vital Signs: Temp Pulse Pulse Pulse Resp BP BP 03/31/21 15:46 63 16 152/45 H 03/31/21 15:32 36.5 C 55 L 18 119/37 L 03/31/21 14:34 36.6 C 61 18 175/59 H 03/31/21 11:45 37 C 65 18 141/58 H 03/31/21 08:00 62 03/31/21 07:20 36.8 C 66 18 176/65 H 03/31/21 04:00 36.7 C 61 18 167/61 H 03/31/21 03:50 37.0 C 64 18 150/76 H 03/31/21 03:00 36.8 C 60 18 153/62 H 03/31/21 02:00 36.8 C 60 16 128/49 L 03/31/21 01:30 37.0 C 60 18 145/54 H 03/31/21 01:15 36.9 C 60 18 134/55 L 03/31/21 00:54 37.1 C 60 18 144/56 H 03/30/21 23:00 37.2 C 67 18 138/61 03/30/21 22:19 63 03/30/21 19:43 67 03/30/21 19:33 36.9 C 70 16 164/64 H 03/30/21 17:30 70 12 163/57 H 03/30/21 17:00 70 21 164/58 H 03/30/21 16:30 63 16 170/55 H Pulse Ox 03/31/21 15:46 94 03/31/21 15:32 97 03/31/21 14:34 98 03/31/21 11:45 92 03/31/21 08:00 03/31/21 07:20 93 03/31/21 04:00 96 03/31/21 03:50 96 03/31/21 03:00 96 03/31/21 02:00 96 03/31/21 01:30 96 03/31/21 01:15 03/31/21 00:54 03/30/21 23:00 96 03/30/21 22:19 03/30/21 19:43 03/30/21 19:33 94 03/30/21 17:30 97 03/30/21 17:00 97 03/30/21 16:30 98 Transfer of Care Handoff Completed per policy Notes Mental Status: alert / awake / arousable and participated in evaluation Nausea / Vomiting: adequately controlled Pain: adequately controlled Airway Patency, RR, SpO2: stable & adequate BP & HR: stable & adequate Hydration State: stable & adequate Anesthetic Complications: no major complications apparent and Pt Satisfied with anesthetic care
[2021-03-31] MEDS ORDERED: COUGH DROP (SUGAR FREE) LOZ 24 LOZ/1 BOX BUCCAL PRN (16:28)
[2021-03-31] MEDS: ATORVASTATIN 40 MG TAB PO SCH (20:34)
[2021-03-31] MEDS: PANTOprazole 40 MG TAB PO SCH (20:36)
[2021-04-01] MEDS: NICOTINE 21 MG/24 HR TDSY TD SCH (05:58)
[2021-04-01 07:07] LABS: Basophils # (auto) 0.03 K/uL (0-0.2); Basophils % (auto) 0.4 %; Eosinophils # (auto) 0.25 K/uL (0-0.5); Eosinophils % (auto) 3.5 %; Hematocrit (blood only) 26.3 % (37-47); Hemoglobin 8.5 g/dL (12.0-16.0); Immature Granulocytes # (auto) 0.01 K/uL (0.00-0.02); Immature Granulocytes % (auto) 0.1 %; Lymphocytes # (auto) 1.44 K/uL (1.2-3.4); Lymphocytes % (auto) 19.9 %; Mean Corpuscular Hemoglobin 27.9 pg (25-34); Mean Corpuscular Hgb Conc 32.3 g/dL (32-36); Mean Corpuscular Volume 86.2 fL (80-100); Mean Platelet Volume 9.1 fL (7.4-10.4); Monocytes # (auto) 0.62 K/uL (0.11-0.59); Monocytes % (auto) 8.6 %; Neutrophils # (auto) 4.87 K/uL (1.4-6.5); Neutrophils % (auto) 67.5 %; Platelet Count 231 K/uL (130-400); RDW Coefficient of Variation 16.6 % (11.5-14.5); RDW Standard Deviation 52.5 fL (36.4-46.3); Red Blood Count 3.05 M/uL (4.2-5.4); White Blood Count 7.22 K/uL (4.8-10.8)
[2021-04-01 07:33] LABS: Calcium 8.6 mg/dl (8.5-10.1); Est GFR (African American) 14.2 ml/min; Est GFR (Non-African American) 12.2 ml/min; Potassium 3.8 mmol/L (3.5-5.1)
[2021-04-01] MEDS: hydrALAZINE TAB 50 MG TAB PO SCH (08:21)
[2021-04-01] MEDS: FUROSEMIDE 20 MG TAB PO SCH (08:21)
[2021-04-01] MEDS: amLODIPine BESYLATE 5 MG TAB PO SCH (08:21)
[2021-04-01] MEDS: carvediloL 3.125 MG TAB PO SCH (08:21)
[2021-04-01] MEDS: hydroCHLOROthiazide 25 MG TAB PO SCH (08:21)
[2021-04-01] MEDS: PANTOprazole 40 MG TAB PO SCH (08:22)
--- NOTE | 2021-04-01 08:27 | Gastroenterology Progress Note ---
Date of Service April 01, 2021 Assessment & Plan (1) Anemia due to GI blood loss: Plan: Anemia: Patient hemoglobin 8.5/hematocrit 26.3 this morning. Status post small bowel endoscopy 03/31/2021 due to history of jejunal AVMs and melena. Several nonbleeding AVMs were identified. Treated with APC. Patient is doing well this morning. Would recommend advancing diet as tolerated low fiber, low roughage. Continue pantoprazole 40 mg p.o. twice daily at discharge. Continued follow-up with hematology. She has been scheduled with my office for GI outpatient follow-up. Please refer to supervising physician addendum for further recommendations. Admission and Anticipated Discharge Date Admission Date: March 30, 2021 Supervising Physician Co-Signing Physician Notes I have seen and examined the patient. I agree with note above by MAREN Iyer except as noted below. HPI Pt denies abd pain. States had black stools today but h and H this am stable. PE Abdomen pos bs soft no guarding nor rebound. A/P melena--hopefully APC of jejunal AVMs will improve this jejunal AVMS s/p apc nodular mucosa in duodenum---path pending F/u in Gi office. Continue PPI. Subjective The patient is awake alert and oriented this morning. She is lying in bed and position of comfort. She denies any specific complaints this morning. She tolerated clear liquid diet without complaints. States that she would like to eat regular food. Reports some mild epigastric tenderness with palpation but otherwise denies abdominal pain. Denies nausea or vomiting. Reports she is passing gas. She would like to be discharged today. Review of Systems Review of Systems: All systems reviewed & are unremarkable except as noted in Subjective Physical Exam Gastrointestinal (Abdomen): Inspection/Auscultation: abdomen normal to inspection and normal bowel sounds; abdomen not distended Perc ussion/Palpation: + abdomen tender (epigastric mild) and abdomen soft; no guarding and abdomen not rigid Results & Data ([facility]) Vital Signs (Past 12 Hours) Vital Signs Temp Pulse Pulse Resp BP Pulse Ox 04/01/21 08:20 78 149/71 H 04/01/21 08:18 37.1 C 59 L 20 134/57 L 95 04/01/21 06:39 63 04/01/21 03:45 36.9 C 62 18 144/63 H 95 03/31/21 23:21 36.9 C 60 18 144/65 H 92 03/31/21 22:51 59 L Laboratory Results Laboratory Results - last 24 hr 04/01/21 04/01/21 06:32 06:32 WBC 7.22 RBC 3.05 L Hgb 8.5 L Hct 26.3 L MCV 86.2 MCH 27.9 MCHC 32.3 RDW Std Deviation 52.5 H RDW Coeff of Kris 16.6 H Plt Count 231 MPV 9.1 Immature Gran % (Auto) 0.1 Neut % (Auto) 67.5 Lymph % (Auto) 19.9 Winn % (Auto) 8.6 Eos % (Auto) 3.5 Baso % (Auto) 0.4 Neut # (Auto) 4.87 Lymph # (Auto) 1.44 Winn # (Auto) 0.62 H Eos # (Auto) 0.25 Baso # (Auto) 0.03 Immature Gran # (Auto) 0.01 Sodium 135 L Potassium 3.8 Chloride 101 Carbon Dioxide 28 Anion Gap 6.0 BUN 69 H Creatinine 3.45 H Est Cr Clr Drug Dosing 16.0 Est GFR ( Amer) 14.2 Est GFR (Non-Af Amer) 12.2 BUN/Creatinine Ratio 20.0 Glucose 79 Calcium 8.6 Diagnostic Findings 03/31/2021: Small bowel endoscopy performed by Dr. Howe due to history of jejunal AVMs and melena demonstrated an irregular Z-line found 40 cm from the incisors; 2 cm hiatal hernia; patchy mild friable mucosa with contact bleeding found on the lesser curvature of the gastric body; localized nodular mucosa found in the second portion of the duodenum with biopsies obtained; one angio ectasia with no bleeding found in the second portion of the duodenum. Treated with APC. 7 angio ectasias with no bleeding were found in the entire examined portion of the jejunum. Treated with APC. Exam was otherwise normal.
--- NOTE | 2021-04-01 13:45 | Discharge Summary ---
Date of Service April 01, 2021 Admission HPI Per Admitting Provider 76-year-old female with PMH COPD, mesenteric artery stenosis, HTN, carotid artery stenosis s/p left carotid endarterectomy, GERD, CKD stage IV, chronic anemia, and other problems listed below who presents to the ED for evaluation of lightheadedness. Patient recently admitted to [facility] 03/13 through 03/16 for symptomatic anemia due to upper GI bleeding from an AVM that required cauterization. Hgb 9.4 on discharge. Patient reports that she had her first bowel movement from being discharged from the hospital a few days ago. Stool was formed and black. Shortly after, patient reports she developed lightheadedness, dizziness, near syncope with standing. Patient denies chest pain and shortness of breath. No abdominal pain, nausea, vomiting, diarrhea. No fevers or chills. She denies urinary symptoms. In the ED, Hgb found to be 8.1. Orthostatic vitals are negative. Patient received meclizine, IV Protonix, IVF. Admission Exam Per Admitting Provider Constitutional: WD/WN, vitals as above Eyes: PERRL, conjunctivae normal, anicteric sclerae ENMT: external ear and nose normal, oropharynx normal Respiratory: normal respiratory effort, lungs clear to auscultation Cardiovascular: Rate/Rhythm: regular rate and regular rhythm Heart Sounds: + murmur (Grade 3/6, systolic) Vessels: normal peripheral pulses Extremities: + AV fistula (LUE); no edema Gastrointestinal (Abdomen): normal bowel sounds, soft, nontender, no hepatosplenomegaly Musculoskeletal: no cyanosis or clubbing, extremities motor strength 5/5 Skin: no rashes, warm and dry Neurologic: PERRL, EOMI, accommodation nl, no face palsy, no dysarthria Psychiatric: A+Ox3, euthymic affect Principal Diagnosis Acute GI bleeding Discharge Exam General: A&Ox3 HENT: NCAT, MMM, EOMI Eyes: PERRLA Neck: Supple, normal range of motion CVS: normal rate and rhythm Resp: b/l good breath sounds Abdomen: Soft, ND/NT Extremities: Absence of any edema Neuro: face symmetric, no gross focal deficits appreciated Skin: warm and dry, no rashes/lesions/errythema MSK: normal ROM, no joint swelling/erythema Discharge Data Allergies Allergy/AdvReac Type Severity Reaction Status Date / Time Bactrim Allergy Severe ELEVATED Verified 08/15/13 14:34 POTASSIUM, BRADYCARDIC "HEART TRIED TO SHUT DOWN" sulfamethoxazole Allergy Severe ELEVATED Verified 03/31/21 14:33 POTASSIUM, BRADYCARDIC "HEART TRIED TO SHUT DOWN" trimethoprim Allergy Severe ELEVATED Verified 03/31/21 14:33 POTASSIUM, BRADYCARDIC "HEART TRIED TO SHUT DOWN" gabapentin Allergy Intermediate HALLUCINATIONS; Verified 03/31/21 14:33 SCREAMING/YELLING codeine Allergy Mild RASH, Verified 03/31/21 14:33 RAPID HEART BEAT hydromorphone [From Dilaudid] AdvReac Mild Hallucinati Verified 03/31/21 14:33 ng morphine AdvReac Unknown Unknown Verified 03/31/21 14:33 oxycodone [From Percocet] AdvReac Unknown Unknown Verified 03/31/21 14:33 Consultations 03/30/21 16:36 ED Decision to Admit Stat 03/30/21 19:31 Consult Gastroenterology Routine Procedures Performed Operation Date: 03/31/21 16:45 Actual Procedures p Small Bowel Enteroscopy Hemostasis - Edward Howe Operation Date: 04/01/21 16:30 <No data on this case meets the specified criteria> Ordered Studies 03/30/21 12:43 CT head/brain wo con Stat Hospital Course (1) History of upper gastrointestinal bleeding: -Patient presenting from home with reports of lightheadedness with standing -In the ED, orthostatic vitals negative, Hgb 8.1 (previously 9.4 on 03/18) -Recent admission to [facility] for anemia due to GI bleeding from AVM, s/p EGD and cauterization on 03/13 -Has been receiving iron infusions as an outpatient (follows with [facility] hematology) -Continue with IV PPI twice daily -Trend daily CBC. Patient underwent a small bowel enteroscopy and was found to have friable gastric mucosa. Patient was discharged on Protonix 40 mg twice daily. Pathology was pending at the time of discharge. On the day of discharge patient was doing okay. No new concerns. Patient tolerated diet. Patient was discharged in stable condition. (2) Hypertension: -Continue home meds for now (amlodipine, carvedilol, hydralazine, furosemide, HCTZ) (3) Chronic kidney disease, stage 4 (severe): -Creatinine 3.4, at baseline. The day of discharge was 3.45. -Has fistula in place but no plans for dialysis at this time -Follows with Dr. Bridget Martini ([facility] nephro) (4) Anemia due to GI blood loss: Total Time Total Time Spent Total Time Spent (In Minutes): 35 Discharge Plan Discharge Items Patient Disposition: Home - Self-Care Reason For Visit: SYMPTOMATIC ANEMIA Discharge Diagnosis: GI bleeding Activity: Resume your previous activity Non-emergency contact: Primary Care Provider Call non-emergency contact if: your symptoms worsen Follow-up/Referrals: Kathi Bland CRNP [Nurse Practitioner] - 04/11/21 2:20 pm Gabbie Hunter PA-C [Primary Care Provider] - (Date & Time 04/07/2021 11:00 AM Provider Gabbie Hunter PA-C Department [facility] ) Diet: Low Fiber Addtl Attending Provider Instructions: Follow-up with your primary care physician as an outpatient. Pending Studies at Discharge: Yes Studies:: Pathology report Stand-Alone Forms: My [facility], Smoking Cessation Medications and DC Order Prescriptions: New pantoprazole 40 mg Tablet,Delayed Release (Dr/Ec) 40 mg PO BID Qty: 60 RF: 0 Continued atorvastatin 40 mg Tablet 40 mg PO QPM RF: 0 Calcium 600 + D(3) 600 mg calcium- 200 unit Capsule 1 cap PO QAM RF: 0 aspirin 81 mg Tablet,Delayed Release (Dr/Ec) 81 mg PO QAM RF: 0 albuterol sulfate 5 mg/mL Solution For Nebulization 2.5 mg INHALATION Q4 PRN (Reason: Shortness Of Breath) RF: 0 loratadine 10 mg Tablet 10 mg PO QAM PRN (Reason: Allergy Symptoms) RF: 0 hydralazine 100 mg tablet 100 mg PO BID RF: 0 hydrochlorothiazide 50 mg Tablet 50 mg PO QAM RF: 0 furosemide 20 mg Tablet 20 mg PO QAM RF: 0 B-complex with vitamin C Tablet 1 tab PO QAM RF: 0 amlodipine 10 mg tablet 10 mg PO QAM RF: 0 carvedilol 3.125 mg tablet 3.125 mg PO BID RF: 0 multivitamin Tablet 1 tab PO DAILY RF: 0 ascorbic acid (vitamin C) [Vitamin C] 500 mg Tablet 500 mg PO QAM RF: 0 Dexilant 60 mg capsule,biphase delayed releas 60 mg PO PM RF: 0 nitroglycerin 0.4 mg tablet, sublingual 0.4 mg sublingual DIRECTED PRN (Reason: Chest Pain) RF: 0 trazodone 50 mg tablet 25 mg PO HS PRN (Reason: Sleep) RF: 0 Discharge Orders: Discharge Order (Routine); Ordered 04/01/21 Ordered By: Karoline Car Admission Data Admit Date/Time: 03/30/21 16:57 Attending Provider: Karoline Car Admit Provider: Savannah Gambino Primary Care Provider: Gabbie Hunter Other Providers: Savannah Gambino ; Parish Smyth Other Interventions: Discharge Summary Assessment (RN) Last Done: 03/31/21 15:46
--- NOTE | 2021-04-09 07:09 | Coding Query ---
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 Please assist us with the question(s) below: Coding Question(s): Patient admitted with Melena. Recent admission for GI AVM's. Pt had an EGD with APC of AVM's . Please document, if known or suspected, the etiology of the GI bleed. Thank you. Yuri Schmitt [facility] Physician's Response(s): Principal Diagnosis: "that condition established after study, to be chiefly responsible for occasioning the admission of the patient to the hospital for care." Co-Existing Principal Diagnosis: "when two or more diagnoses equally meet the criteria for principal diagnosis as determined by the circumstances of admission, diagnostic work up, and/or therapy provided, and the Alphabetic Index, Tabular List, or another coding guideline does not provide sequencing direction, any one of the diagnoses may be sequenced first." "When the physician has documented what appears to be a current diagnosis in the body of the record, but has not included the diagnosis in the final diagnostic statement, the physician should be asked whether the diagnosis should be added." (Source Coding [facility] 2 QTR90. p3-4) [facility]
== END 2021-04-01 15:17 | disposition home or self-care (01) | DRG 378 ==
LOC: ED 11:53 → SUATTDRO 16:57 → 2N 16:57

== ENCOUNTER 2021-04-06 17:03 | Inpatient (IN) ==
[2021-04-06 18:51] LABS: Hemoglobin 9.3 g/dL (12.0-16.0); Mean Corpuscular Hemoglobin 28.2 pg (25-34); Mean Corpuscular Hgb Conc 32.1 g/dL (32-36); Mean Corpuscular Volume 87.9 fL (80-100); Mean Platelet Volume 9.8 fL (7.4-10.4); Platelet Count 298 K/uL (130-400); RDW Coefficient of Variation 17.4 % (11.5-14.5); RDW Standard Deviation 56.7 fL (36.4-46.3)
[2021-04-06 19:01] LABS: Adenovirus PCR Not Detected (NotDetected); Bordetella parapertussis PCR Not Detected (NotDetected); Bordetella pertussis PCR Not Detected (NotDetected); Chlamydia pneumoniae PCR Not Detected (NotDetected); Coronavirus 229E PCR Not Detected (NotDetected); Coronavirus CoV-2 (COVID19)PCR Not Detected (NotDetected); Coronavirus HKU1 PCR Not Detected (NotDetected); Coronavirus NL63 PCR Not Detected (NotDetected); Coronavirus OC43PCR Not Detected (NotDetected); Human Metapneumovirus PCR Not Detected (NotDetected); Influenza A PCR Not Detected (NotDetected); Influenza B PCR Not Detected (NotDetected); Mycoplasma pneumoniae PCR Not Detected (NotDetected); Parainfluenza Virus 1 PCR Not Detected (NotDetected); Parainfluenza Virus 2 PCR Not Detected (NotDetected); Parainfluenza Virus 3 PCR Not Detected (NotDetected); Parainfluenza Virus 4 PCR Not Detected (NotDetected); Respiratory Syncytial VirusPCR Not Detected (NotDetected); Rhinovirus/Enterovirus PCR Not Detected (NotDetected)
--- NOTE | 2021-04-06 19:01 | Emergency Department Note ---
Impression & Plan Weakness, Chronic kidney disease, stage 4 (severe), Complaint of melena ED Provider Note Provider: Guicho Rojo MD DATE OF SERVICE: 04/06/2021 CHIEF COMPLAINT: Weakness HISTORY OF PRESENT ILLNESS: Patient is a 76-year-old female with a history of CKD, GERD, and multiple recent admissions for GI bleed from AVMs presenting here today complaining over the past 3 to 4 days of developing generalized diffuse weakness with a little shortness of breath with exertion. States that she was discharged from the hospital last Wednesday and received an iron infusion last in the outpatient setting. On Wednesday began feeling some weakness that is worsened some and today feels things are heavy in her arms or legs and quite fatigued. Patient states feels similar to when her blood counts were low before. Reports overnight she developed the first time since going home significantly black dark stools but no red blood. 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 Patient reports chronic back pain a little bit of left-sided upper abdominal discomfort. Denies significant chest pain at this time or shortness of breath at rest. Patient denies URI symptoms. She reports a chronic cough due to smoking. Patient reports she has follow-up with GI in the outpatient setting on Wednesday but did not want to wait until then. REVIEW OF SYSTEMS: A total of 10 review of systems was obtained and negative except as stated above in the HPI. PAST MEDICAL HISTORY: As noted above MEDICATIONS: Reviewed home medications SOCIAL HISTORY: Smoker, patient lives at home alone in an efficiency apartment PHYSICAL EXAM: GENERAL: alert and oriented in no acute distress on stretcher Head: normocephalic and atraumatic EYES: No injection, discharge or icterus. NECK: Trachea midline. Supple. ENT: Mucous membranes pink and moist. LUNGS: Airway patent. No retractions. Breath sounds clear with rare faint expiratory wheeze HEART: Regular rate and rhythm. No chest wall tenderness ABDOMEN: Soft with some mild left upper quadrant tenderness. SKIN: Acyanotic, warm, dry, without rashes EXTREMITIES: Without swelling, tenderness or deformity NEUROLOGICAL: No focal deficits. No aphasia. No facial droop or slurred speech. EK bpm sinus rhythm with 1st degree AV block with PAC. No PVC. No acute ST segment elevation noted with a QTC of 476. Some lateral artifact in V6 is noted. CONTINUOUS CARDIAC MONITORING: was ordered and showed a heart rate of 60s to 70sbpm in normal sinus rhythm Patient's laboratory studies and imaging reviewed. Differential includes Infection, dehydration, metabolic abnormality, hypo/hyperglycemia, electrolyte disturbance, anemia, hypoxia, cardiac sources, intracerebral event, toxicologic, neurologic, as well as other pathologies. IMPRESSION/MEDICAL DECISION MAKING: Reviewed the recent medical record of the patient with GI consultation each time and AVMs that were treated with argon therapy. Patient complains of some diffuse weakness right now. Blood counts and labs were sent. Not hypoxic here and shortness breath with exertion I doubt is related to pneumonia or PE at this time. Chest x-ray completed radiology report reviewed. She is not hypotensive or tachycardic at this point although does appear somewhat fatigued appearing. There is no significant focal weakness indicative of a CVA or acute intracranial bleed. She does not appear significantly ill and I doubt this is meningitis. A little bit of left upper quadrant tenderness but fairly benign otherwise and doubt acute intra-abdominal pathology such as diverticulitis, cholecystitis, appendicitis, or ischemic bowel. Blood work luckily returned showing stable hemoglobin of 9.3 however a new leukocytosis of 12.3 is noted (mildly increased from 9 recently). CKD is noted fairly similar to recent. Mild hyponatremia. No evidence of lipase elevation and thus low suspicion for pancreatitis. Troponin and EKG reassuring. Biofire viral panel is negative. No signs of acute hepatitis. Given the elevated blood cell count and some abdominal pain and generalized weakness discussed the patient pending CT scan to look for other acute intra-abdominal pathology. Per radiology CT scan without acute pathology noted. Urine sample ordered and was reassuring Given small amount of IV fluid. Procalcitonin ordered and undetectably low. Lower suspicion for bacterial infection given lab work. Discussed with the patient findings. Unsure was causing some of her generalized weakness at this point. Given some reassurance regarding the GI situation at this time. Do not feel need she she needs blood transfusion at this point. Patient lives alone in discussion and shared decision make with her and her son she does not feel comfort going home. Discussed with the hospital further observation overnight and repeat hemoglobin in the morning as well as continued evaluation of her generalized weakness. Again this does not seem consistent with an acute focal CVA or intracranial bleed. DIAGNOSIS: Weakness, melena DISPOSITION: Hospitalist will evaluate Patient was agreeable with this plan. Past Med/Surg History Medical History Anemia Cardiac murmur Carotid stenosis, left Left carotid endarterectomy 11/2020 [facility] with Dr Love Chronic back pain Chronic kidney disease, stage 4 (severe) Generalized weakness GERD (gastroesophageal reflux disease) Gout hx History of upper gastrointestinal bleeding Hyperlipidemia Hypertension Mesenteric artery stenosis Renal artery stenosis Surgical History History of bilateral cataract extraction History of carotid endarterectomy (12/10/20) [facility] with Dr Love History of carpal tunnel release of both wrists History of cholecystectomy History of colonoscopy with polypectomy History of esophagogastroduodenoscopy (EGD) History of laminectomy History of repair of right rotator cuff History of tooth extraction all teeth removed Family History Mother Family history of diabetes mellitus Brother Family history of diabetes mellitus Sister Family history of diabetes mellitus Other No family history of adverse response to anesthesia Social History Smoking Status: Current every day smoker Tobacco Type: Cigarettes Cigarettes Per Day: 20; Second Hand Exposure: No; Hx Alcohol Use: No Hx Substance Use: No Preferred Language: Thai Communication Ability: Effective Sports Attorney Required: No Beliefs That Will Affect Care: Worship Worship Beliefs: Voodoo marital status: Current Living Situation: Alone How many Children do You have: 2 Feels Safe at Home: Yes Assistive Devices: Walker Allergies Allergies Allergy/AdvReac Type Severity Reaction Status Date / Time Bactrim Allergy Severe ELEVATED Verified 08/15/13 14:34 POTASSIUM, BRADYCARDIC "HEART TRIED TO SHUT DOWN" sulfamethoxazole Allergy Severe ELEVATED Verified 04/06/21 18:54 POTASSIUM, BRADYCARDIC "HEART TRIED TO SHUT DOWN" trimethoprim Allergy Severe ELEVATED Verified 04/06/21 18:54 POTASSIUM, BRADYCARDIC "HEART TRIED TO SHUT DOWN" gabapentin Allergy Intermediate HALLUCINATIONS; Verified 04/06/21 18:54 SCREAMING/YELLING codeine Allergy Mild RASH, Verified 04/06/21 18:54 RAPID HEART BEAT hydromorphone [From Dilaudid] AdvReac Mild Hallucinati Verified 04/06/21 18:54 ng morphine AdvReac Unknown Unknown Verified 04/06/21 18:54 oxycodone [From Percocet] AdvReac Unknown Unknown Verified 04/06/21 18:54 Home Meds Home Medications Medication Instructions Recorded Confirmed aspirin 81 mg tablet,delayed 81 mg PO QAM 09/16/18 04/06/21 release atorvastatin 40 mg tablet 40 mg PO QPM 09/16/18 04/06/21 calcium carbonate-vitamin D3 600 1 cap PO QAM 09/16/18 04/06/21 mg calcium-200 unit capsule (Calcium 600 + D(3)) hydralazine 100 mg tablet 100 mg PO BID 04/19/19 04/06/21 amlodipine 10 mg tablet 10 mg PO QAM 10/10/20 04/06/21 carvedilol 3.125 mg tablet 3.125 mg PO BID 10/10/20 04/06/21 ascorbic acid (vitamin C) 500 mg 500 mg PO QAM 12/10/20 04/06/21 tablet (Vitamin C) multivitamin 1 tab PO DAILY 12/10/20 04/06/21 B-complex with vitamin C 1 tab PO QAM 02/17/21 04/06/21 furosemide 20 mg tablet 20 mg PO QAM 02/17/21 04/06/21 hydrochlorothiazide 50 mg tablet 50 mg PO QAM 02/17/21 04/06/21 dexlansoprazole 60 mg 60 mg PO PM 03/12/21 04/06/21 capsule,biphase delayed release (Dexilant) nitroglycerin 0.4 mg sublingual 0.4 mg SUBLINGUAL DIRECTED PRN 03/30/21 04/06/21 tablet trazodone 50 mg tablet 25 mg PO HS PRN 03/30/21 04/06/21 albuterol sulfate 90 mcg/actuation 2 puff INHALATION UD PRN 04/06/21 04/06/21 aerosol inhaler ferrous sulfate 325 mg (65 mg 325 mg PO BID 04/06/21 04/06/21 iron) tablet Previous Rx's Medication Instructions Recorded pantoprazole 40 mg tablet,delayed 40 mg PO BID #60 tab 04/01/21 release Results & Data (ED) Vital Signs Vital Signs - 24 hr 04/06/21 17:23 04/06/21 18:43 04/06/21 18:45 Temperature 36.6 C Temperature Source Temporal Artery Scan Pulse Rate - Lying Pulse Rate - Sitting Pulse Rate - Standing Pulse Rate 76 68 68 Pulse Rate [Finger] Pulse Rate from SpO2 Sensor 68 Respiratory Rate 76 H 18 19 Respiratory Effort / Characteristics Non-Labored Respiratory Depth Normal Blood Pressure - Lying Blood Pressure - Sitting Blood Pressure- Standing Blood Pressure 132/67 Blood Pressure [Right Arm] 193/58 H Blood Pressure Mean 88 Blood Pressure Mean [Right Arm] 103 Blood Pressure Position Sitting Pulse Oximetry 99 100 99 Oxygen Delivery Method Room Air Room Air Room Air Sepsis Recent Fever Within 48 Hours No Sepsis New/Unexplained Change in Mental Status No Sepsis Action Taken by Nursing No Action Required 04/06/21 18:50 04/06/21 20:20 04/06/21 20:33 Temperature Temperature Source Pulse Rate - Lying 69 Pulse Rate - Sitting 72 Pulse Rate - Standing 76 Pulse Rate 67 Pulse Rate [Finger] 66 Pulse Rate from SpO2 Sensor 69 Respiratory Rate 18 Respiratory Effort / Characteristics Respiratory Depth Blood Pressure - Lying 157/54 H Blood Pressure - Sitting 159/73 H Blood Pressure- Standing 125/52 L Blood Pressure Blood Pressure [Right Arm] 157/54 H Blood Pressure Mean Blood Pressure Mean [Right Arm] 88 Blood Pressure Position Pulse Oximetry 95 99 Oxygen Delivery Method Room Air Room Air Sepsis Recent Fever Within 48 Hours Sepsis New/Unexplained Change in Mental Status Sepsis Action Taken by Nursing Laboratory Data Result diagrams: 04/06/21 18:43 04/06/21 18:43 Lab Results 04/06/21 04/06/21 04/06/21 Range/Units 18:04 18:04 18:43 WBC (4.8-10.8) K/uL RBC (4.2-5.4) M/uL Hgb (12.0-16.0) g/dL Hct (37-47) % MCV (80-100) fL MCH (25-34) pg MCHC (32-36) g/dL RDW Std Deviation (36.4-46.3) fL RDW Coeff of Kris (11.5-14.5) % Plt Count (130-400) K/uL MPV (7.4-10.4) fL PT (9.0-12.0) Seconds INR (0.9-1.1) APTT (21.0-31.0) Seconds PTT Ratio Sodium (136-145) mmol/L Potassium (3.5-5.1) mmol/L Chloride (98-107) mmol/L Carbon Dioxide (21-32) mmol/L Anion Gap (3-11) BUN (7-18) mg/dl Creatinine (0.6-1.2) mg/dl Est Cr Clr Drug Dosing ml/min Est GFR ( Amer) ml/min Est GFR (Non-Af Amer) ml/min BUN/Creatinine Ratio (10-20) Glucose (70-99) mg/dl Calcium (8.5-10.1) mg/dl Magnesium (1.8-2.4) mg/dl Total Bilirubin (0.2-1) mg/dl AST (15-37) U/L ALT (12-78) U/L Alkaline Phosphatase (45-117) U/L Troponin I (0-0.045) ng/ml Total Protein (6.4-8.2) gm/dl Albumin (3.4-5.0) gm/dl Globulin (2.5-4.0) gm/dl Albumin/Globulin Ratio (0.9-2) Lipase (73-393) U/L Procalcitonin (0-0.5) ng/ml Urine Color Urine Appearance (Clear) Urine pH (4.5-7.5) Ur Specific [place] Pos (1.000-1.030) Urine Protein (Negative) Urine Glucose (UA) (Negative) Urine Ketones (Negative) Urine Blood (Negative) Urine Nitrite (Negative) Urine Bilirubin (Negative) Urine Urobilinogen (Negative) Ur Leukocyte Esterase (Negative) Urine WBC (Auto) (0-5) /hpf Urine RBC (Auto) (0-4) /hpf U Hyaline Cast (Auto) (0-5) /lpf U Epithel Cells (Auto) (0-5) /lpf Urine Bacteria (Auto) (Negative) Adenovirus (PCR) Not Detected (NotDetected) B. pertussis DNA (PCR) Not Detected (NotDetected) B.parapertussis DNA PCR Not Detected (NotDetected) C. pneumoniae DNA (PCR) Not Detected (NotDetected) Coronavirus OC43 (PCR) Not Detected (NotDetected) Coronavirus HKU1 (PCR) Not Detected (NotDetected) Coronavirus 229E (PCR) Not Detected (NotDetected) COVID-19 Eval Order RESPNP at [facility] SARS-CoV-2 (PCR) Not Detected (NotDetected) Coronavirus NL63 (PCR) Not Detected (NotDetected) Human Metapneumovir PCR Not Detected (NotDetected) Influenza Type A (PCR) Not Detected (NotDetected) Influenza Type B (PCR) Not Detected (NotDetected) M. pneumoniae (PCR) Not Detected (NotDetected) Parainfluenza 1 (PCR) Not Detected (NotDetected) Parainfluenza 2 (PCR) Not Detected (NotDetected) Parainfluenza 3 (PCR) Not Detected (NotDetected) Parainfluenza 4 (PCR) Not Detected (NotDetected) RSV (PCR) Not Detected (NotDetected) Entero/Rhino (PCR) Not Detected (NotDetected) Blood Type O Positive Antibody Screen NEGATIVE 04/06/21 04/06/21 04/06/21 Range/Units 18:43 18:43 18:43 WBC 12.30 H (4.8-10.8) K/uL RBC 3.30 L (4.2-5.4) M/uL Hgb 9.3 L (12.0-16.0) g/dL Hct 29.0 L (37-47) % MCV 87.9 (80-100) fL MCH 28.2 (25-34) pg MCHC 32.1 (32-36) g/dL RDW Std Deviation 56.7 H (36.4-46.3) fL RDW Coeff of Kris 17.4 H (11.5-14.5) % Plt Count 298 (130-400) K/uL MPV 9.8 (7.4-10.4) fL PT 9.6 (9.0-12.0) Seconds INR 0.9 (0.9-1.1) APTT 23.1 (21.0-31.0) Seconds PTT Ratio 0.9 Sodium 134 L (136-145) mmol/L Potassium 4.2 (3.5-5.1) mmol/L Chloride 99 (98-107) mmol/L Carbon Dioxide 24 (21-32) mmol/L Anion Gap 11.0 (3-11) BUN 67 H (7-18) mg/dl Creatinine 3.72 H (0.6-1.2) mg/dl Est Cr Clr Drug Dosing 14.9 ml/min Est GFR ( Amer) 12.9 ml/min Est GFR (Non-Af Amer) 11.2 ml/min BUN/Creatinine Ratio 18.0 (10-20) Glucose 109 H (70-99) mg/dl Calcium 9.3 (8.5-10.1) mg/dl Magnesium 2.5 H (1.8-2.4) mg/dl Total Bilirubin 0.3 (0.2-1) mg/dl AST 16 (15-37) U/L ALT 18 (12-78) U/L Alkaline Phosphatase 146 H (45-117) U/L Troponin I < 0.015 (0-0.045) ng/ml Total Protein 7.0 (6.4-8.2) gm/dl Albumin 3.3 L (3.4-5.0) gm/dl Globulin 3.7 (2.5-4.0) gm/dl Albumin/Globulin Ratio 0.9 (0.9-2) Lipase 155 (73-393) U/L Procalcitonin (0-0.5) ng/ml Urine Color Urine Appearance (Clear) Urine pH (4.5-7.5) Ur Specific [place] Pos (1.000-1.030) Urine Protein (Negative) Urine Glucose (UA) (Negative) Urine Ketones (Negative) Urine Blood (Negative) Urine Nitrite (Negative) Urine Bilirubin (Negative) Urine Urobilinogen (Negative) Ur Leukocyte Esterase (Negative) Urine WBC (Auto) (0-5) /hpf Urine RBC (Auto) (0-4) /hpf U Hyaline Cast (Auto) (0-5) /lpf U Epithel Cells (Auto) (0-5) /lpf Urine Bacteria (Auto) (Negative) Adenovirus (PCR) (NotDetected) B. pertussis DNA (PCR) (NotDetected) B.parapertussis DNA PCR (NotDetected) C. pneumoniae DNA (PCR) (NotDetected) Coronavirus OC43 (PCR) (NotDetected) Coronavirus HKU1 (PCR) (NotDetected) Coronavirus 229E (PCR) (NotDetected) COVID-19 Eval Order SARS-CoV-2 (PCR) (NotDetected) Coronavirus NL63 (PCR) (NotDetected) Human Metapneumovir PCR (NotDetected) Influenza Type A (PCR) (NotDetected) Influenza Type B (PCR) (NotDetected) M. pneumoniae (PCR) (NotDetected) Parainfluenza 1 (PCR) (NotDetected) Parainfluenza 2 (PCR) (NotDetected) Parainfluenza 3 (PCR) (NotDetected) Parainfluenza 4 (PCR) (NotDetected) RSV (PCR) (NotDetected) Entero/Rhino (PCR) (NotDetected) Blood Type Antibody Screen 04/06/21 04/06/21 Range/Units 19:53 20:36 WBC (4.8-10.8) K/uL RBC (4.2-5.4) M/uL Hgb (12.0-16.0) g/dL Hct (37-47) % MCV (80-100) fL MCH (25-34) pg MCHC (32-36) g/dL RDW Std Deviation (36.4-46.3) fL RDW Coeff of Kris (11.5-14.5) % Plt Count (130-400) K/uL MPV (7.4-10.4) fL PT (9.0-12.0) Seconds INR (0.9-1.1) APTT (21.0-31.0) Seconds PTT Ratio Sodium (136-145) mmol/L Potassium (3.5-5.1) mmol/L Chloride (98-107) mmol/L Carbon Dioxide (21-32) mmol/L Anion Gap (3-11) BUN (7-18) mg/dl Creatinine (0.6-1.2) mg/dl Est Cr Clr Drug Dosing ml/min Est GFR ( Amer) ml/min Est GFR (Non-Af Amer) ml/min BUN/Creatinine Ratio (10-20) Glucose (70-99) mg/dl Calcium (8.5-10.1) mg/dl Magnesium (1.8-2.4) mg/dl Total Bilirubin (0.2-1) mg/dl AST (15-37) U/L ALT (12-78) U/L Alkaline Phosphatase (45-117) U/L Troponin I (0-0.045) ng/ml Total Protein (6.4-8.2) gm/dl Albumin (3.4-5.0) gm/dl Globulin (2.5-4.0) gm/dl Albumin/Globulin Ratio (0.9-2) Lipase (73-393) U/L Procalcitonin < 0.05 (0-0.5) ng/ml Urine Color Yellow Urine Appearance Clear (Clear) Urine pH 6.0 (4.5-7.5) Ur Specific [place] Pos 1.010 (1.000-1.030) Urine Protein 2+ H (Negative) Urine Glucose (UA) Negative (Negative) Urine Ketones Negative (Negative) Urine Blood Negative (Negative) Urine Nitrite Negative (Negative) Urine Bilirubin Negative (Negative) Urine Urobilinogen Negative (Negative) Ur Leukocyte Esterase Negative (Negative) Urine WBC (Auto) 1-5 (0-5) /hpf Urine RBC (Auto) 0-4 (0-4) /hpf U Hyaline Cast (Auto) 1-5 (0-5) /lpf U Epithel Cells (Auto) >30 H (0-5) /lpf Urine Bacteria (Auto) Negative (Negative) Adenovirus (PCR) (NotDetected) B. pertussis DNA (PCR) (NotDetected) B.parapertussis DNA PCR (NotDetected) C. pneumoniae DNA (PCR) (NotDetected) Coronavirus OC43 (PCR) (NotDetected) Coronavirus HKU1 (PCR) (NotDetected) Coronavirus 229E (PCR) (NotDetected) COVID-19 Eval Order SARS-CoV-2 (PCR) (NotDetected) Coronavirus NL63 (PCR) (NotDetected) Human Metapneumovir PCR (NotDetected) Influenza Type A (PCR) (NotDetected) Influenza Type B (PCR) (NotDetected) M. pneumoniae (PCR) (NotDetected) Parainfluenza 1 (PCR) (NotDetected) Parainfluenza 2 (PCR) (NotDetected) Parainfluenza 3 (PCR) (NotDetected) Parainfluenza 4 (PCR) (NotDetected) RSV (PCR) (NotDetected) Entero/Rhino (PCR) (NotDetected) Blood Type Antibody Screen Administered Medications Discontinued Medications Sodium Chloride (Nss) 500 mls @ 999 mls/hr IV .Q31M ONE Stop: 04/06/21 20:42 Last Admin: 04/06/21 20:38 Dose: 999 mls/hr Documented by: [id number] Imaging Data Radiologist's Impression: Chest X-Ray 04/06/21 18:44 XR chest 1V portable CLINICAL HISTORY: weakness TECHNIQUE: Single frontal radiograph of the chest was obtained. Comparison: Comparison is made to chest one view 03/31/2021 FINDINGS: No lines and tubes are seen. The cardiomediastinal silhouette is normal. Left lung base atelectasis is seen. No evidence of pleural effusion or pneumothorax. IMPRESSION: No acute chest disease. ACT 112: Negative or not required by law. Electronically signed by: Patrick Warner M.D. 04/06/2021 7:04 PM Abdomen/Pelvis CT 04/06/21 19:04 CT abd pelvis wo con CLINICAL HISTORY: melena, L belly pain, hx gi bleed, elev wbc/weak TECHNIQUE: Helical axial images of the abdomen and pelvis were obtained. Automated dose lowering techniques and/or adjustment according to patient size were utilized for this exam. This exam was performed without intravenous contrast. COMPARISON: Comparison is made to CT abdomen pelvis 10/10/2020 FINDINGS: Lower chest: No acute abnormality Liver: Unremarkable. No focal lesions are seen. Gallbladder and biliary tree: Patient is status post cholecystectomy. No intra- or extrahepatic biliary ductal dilation. Pancreas: Fatty replacement of the pancreas is seen. Spleen: Calcifications are noted in the spleen compatible with prior granulomatous disease. Adrenals: Bilateral adrenal thickening is seen. Kidneys and ureters: The left kidney is diminutive in size. Scattered cysts are seen in the right kidney. Nonobstructive nephrolithiasis is seen. Bladder: Unremarkable. Reproductive organs: Unremarkable. Bowel: Unremarkable. Lymph nodes Retroperitoneal: Unremarkable. Mesenteric: Unremarkable. Pelvic: Subcentimeter iliac and inguinal lymph nodes are seen bilaterally. Peritoneum: Normal Vessels: Atherosclerotic calcifications are seen. Abdominal wall: Unremarkable. Bones: Degenerative changes in the visualized spine. IMPRESSION: No acute abnormalities. ACT 112: Negative or not required by law. Electronically signed by: Patrick Warner M.D. 04/06/2021 7:37 PM Discharge Plan Visit Data Chief Complaint: Weakness Stated Complaint: WEAK, DIARRHEA ED Provider: Guicho Rojo Discharge Problem: Weakness, Chronic kidney disease, stage 4 (severe), Complaint of melena Forms Stand Alone Forms: My [facility] [employer] [place] [employer] Prescriptions Prescriptions: No Action atorvastatin 40 mg Tablet 40 mg PO QPM RF: 0 Calcium 600 + D(3) 600 mg calcium- 200 unit Capsule 1 cap PO QAM RF: 0 aspirin 81 mg Tablet,Delayed Release (Dr/Ec) 81 mg PO QAM RF: 0 hydralazine 100 mg tablet 100 mg PO BID RF: 0 hydrochlorothiazide 50 mg Tablet 50 mg PO QAM RF: 0 furosemide 20 mg Tablet 20 mg PO QAM RF: 0 B-complex with vitamin C Tablet 1 tab PO QAM RF: 0 ferrous sulfate 325 mg (65 mg iron) tablet 325 mg PO BID RF: 0 albuterol sulfate 90 mcg/actuation HFA aerosol inhaler 2 puff INHALATION UD PRN (Reason: Shortness Of Breath Or Wheezing) RF: 0 amlodipine 10 mg tablet 10 mg PO QAM RF: 0 carvedilol 3.125 mg tablet 3.125 mg PO BID RF: 0 multivitamin Tablet 1 tab PO DAILY RF: 0 ascorbic acid (vitamin C) [Vitamin C] 500 mg Tablet 500 mg PO QAM RF: 0 Dexilant 60 mg capsule,biphase delayed releas 60 mg PO PM RF: 0 nitroglycerin 0.4 mg tablet, sublingual 0.4 mg sublingual DIRECTED PRN (Reason: Chest Pain) RF: 0 trazodone 50 mg tablet 25 mg PO HS PRN (Reason: Sleep) RF: 0 pantoprazole 40 mg Tablet,Delayed Release (Dr/Ec) 40 mg PO BID Qty: 60 RF: 0 Referrals Referrals: Gabbie Hunter PA-C [Primary Care Provider] -
--- NOTE | 2021-04-06 19:05 | XRay Report ---
XR chest 1V portable CLINICAL HISTORY: weakness TECHNIQUE: Single frontal radiograph of the chest was obtained. Comparison: Comparison is made to chest one view 03/31/2021 FINDINGS: No lines and tubes are seen. The cardiomediastinal silhouette is normal. Left lung base atelectasis i s seen. No evidence of pleural effusion or pneumothorax. IMPRESSION: No acute chest disease. ACT 112: Negative or not required by law. Electronically signed by: Patrick Warner M.D. 04/06/2021 7:04 PM
[2021-04-06 19:09] LABS: Albumin Level 3.3 gm/dl (3.4-5.0); Aspartate Aminotransferase 16 U/L (15-37); Blood Urea Nitrogen 67 mg/dl (7-18); Calcium 9.3 mg/dl (8.5-10.1); Carbon Dioxide 24 mmol/L (21-32); Chloride 99 mmol/L (98-107); Creatinine Clr Calc Pharmacy 14.9 ml/min; Est GFR (African American) 12.9 ml/min; Est GFR (Non-African American) 11.2 ml/min; Glucose 109 mg/dl (70-99); Lipase 155 U/L (73-393); Magnesium 2.5 mg/dl (1.8-2.4); Potassium 4.2 mmol/L (3.5-5.1); Sodium 134 mmol/L (136-145)
[2021-04-06 19:14] LABS: Alanine Aminotransferase 18 U/L (12-78); Albumin Globulin Ratio 0.9 (0.9-2); Alkaline Phosphatase 146 U/L (45-117); Bilirubin,Total 0.3 mg/dl (0.2-1); Globulin 3.7 gm/dl (2.5-4.0); Troponin I < 0.015 ng/ml (0-0.045)
[2021-04-06 19:28] LABS: INR 0.9 (0.9-1.1); Partial Thromboplastin Ratio 0.9; Partial Thromboplastin Time 23.1 Seconds (21.0-31.0); Prothrombin Time 9.6 Seconds (9.0-12.0)
--- NOTE | 2021-04-06 19:38 | CT Scan Report ---
CT abd pelvis wo con CLINICAL HISTORY: melena, L belly pain, hx gi bleed, elev wbc/weak TECHNIQUE: Helical axial images of the abdomen and pelvis were obtained. Automated dose lowering tech niques and/or adjustment according to patient size were utilized for this exam. This exam was perfor med without intravenous contrast. COMPARISON: Comparison is made to CT abdomen pelvis 10/10/2020 FINDINGS: Lower chest: No acute abnormality Liver: Unremarkable. No focal lesions are seen. Gallbladder and biliary tree: Patient is status post cholecystectomy. No intra- or extrahepatic bilia ry ductal dilation. Pancreas: Fatty replacement of the pancreas is seen. Spleen: Calcifications are noted in the spleen compatible with prior granulomatous disease. Adrenals: Bilateral adrenal thickening is seen. Kidneys and ureters: The left kidney is diminutive in size. Scattered cysts are seen in the right kid yolanda. Nonobstructive nephrolithiasis is seen. Bladder: Unremarkable. Reproductive organs: Unremarkable. Bowel: Unremarkable. Lymph nodes Retroperitoneal: Unremarkable. Mesenteric: Unremarkable. Pelvic: Subcentimeter iliac and inguinal lymph nodes are seen bilaterally. Peritoneum: Normal Vessels: Atherosclerotic calcifications are seen. Abdominal wall: Unremarkable. Bones: Degenerative changes in the visualized spine. IMPRESSION: No acute abnormalities. ACT 112: Negative or not required by law. Electronically signed by: Patrick Warner M.D. 04/06/2021 7:37 PM
[2021-04-06] MEDS ORDERED: SODIUM CHLORIDE 0.9% 500 ML IV ONE (20:12)
[2021-04-06 20:56] LABS: Appearance Urine Clear (Clear); Bacteria Urine Automated Negative (Negative); Bilirubin Urine Negative (Negative); Blood Urine Negative (Negative); Color Urine Yellow; Epithelial Cell Urine Auto >30 /lpf (0-5); Glucose Urine UA Negative (Negative); Ketones Urine Negative (Negative); Leukocyte Esterase Urine Negative (Negative); Nitrite Urine Negative (Negative); Protein Urine 2+ (Negative); RBC Urine Automated 0-4 /hpf (0-4); Urobilinogen Urine Negative (Negative)
[2021-04-06] MEDS ORDERED: ONDANSETRON INJ 2 MG/ML 2 ML VIAL IV PRN (23:50)
[2021-04-06] MEDS ORDERED: ACETAMINOPHEN 325 MG TAB PO PRN (23:50)
[2021-04-06] MEDS ORDERED: PANTOprazole 40 MG TAB PO SCH (23:50)
[2021-04-06] MEDS ORDERED: traZODone HCL 50 MG TAB PO PRN (23:50)
[2021-04-06] MEDS ORDERED: NITROGLYCERIN SL 0.4 MG/TAB TAB SL PRN ×2 (23:50)
[2021-04-06] MEDS ORDERED: ALBUTEROL HFA 8 GM INHALER INH PRN (23:50)
--- NOTE | 2021-04-06 23:51 | History and Physical Report ---
DATE OF ADMISSION: 04/06/2021. CHIEF COMPLAINT: Weakness. HISTORY OF PRESENT ILLNESS: This is a 76-year-old female with past medical history significant for COPD, specific carotid stenosis, hypertension, carotid artery stenosis, status post left carotid endarterectomy, GERD, chronic kidney disease stage IV, chronic anemia, who was recently admitted to [facility] on 03/13/2021 to 03/16/2021 for symptomatic anemia due to upper GI bleeding from AVM, that required cauterization and was discharged and she was readmitted on 03/30/2021 with some lightheadedness and was evaluated GI and her hemoglobin was 8.4 at that time and status post small bowel endoscopy on 03/31/2021 due to history of jejunal AVMs and melena. Several nonbleeding AVMs were identified, treated with APC and did fine. At that time, the patient was found to have a friable gastric mucosa and after the procedure, she did fine and she was tolerating diet and she was discharged home. The patient states again last night she had diarrhea three episodes and it was black and the last episode of diarrhea was at 1:00 in the morning and after that she felt weakness in the legs. Whenever she was walking, her legs giving away and she also feeling heavy and weak in her upper extremities and lower extremities that is why she came here. Currently, resting comfortably and hemodynamically stable. Labs showed hemoglobin of 9.3, which is stable from discharge, on 04/03/2021 it was 9.5. Denies any headache, no dizziness, no blurred visions, no earache, no runny nose, no sore throat. No cough. Appetite is okay. No difficulty swallowing. No chest pain or shortness of breath, no nausea. She has some mild left lower abdominal discomfort, no rash currently. ALLERGIES: BACTRIM, GABAPENTIN, CODEINE, DILAUDID, MORPHINE, PERCOCET. PAST MEDICAL HISTORY: As mentioned above. PAST SURGICAL HISTORY: EGDs, small bowel enteroscopy, carpal tunnel surgery, cataract, cholecystectomy, back surgeries, rotator cuff repair. MEDICATIONS: The patient is currently on albuterol 2 puffs inhalation q.i.d. p.r.n., amlodipine 10 mg p.o. a.m., vitamin C 500 mg p.o. a.m., aspirin 81 mg p.o. a.m., atorvastatin 40 mg p.o. a.m., vitamin B complex 1 tablet p.o. a.m., calcium plus vitamin D 1 capsule p.o. a.m., Coreg 3.125 mg p.o. b.i.d., Dexilant 60 mg p.o. a.m., ferrous sulfate 325 mg p.o. b.i.d., furosemide 20 mg p.o. a.m., hydralazine 100 mg p.o. b.i.d., hydrochlorothiazide 50 mg p.o. a.m., multivitamin 1 tablet p.o. daily, nitroglycerin 0.4 mg sublingual p.r.n., Protonix 40 mg p.o. b.i.d., trazodone 25 mg p.o. at bedtime p.r.n. FAMILY HISTORY: Significant for brother has diabetes, hypertension; mother has stroke, diabetes; sister has diabetes. Son has ulcerative colitis. SOCIAL HISTORY: . Smoked 1 pack a day 50 years ago. No alcohol, rarely consumes wine. No drug use. Lives alone. Family is close by. REVIEW OF SYSTEMS: As per HPI. Rest of review of systems is negative. PHYSICAL EXAMINATION: GENERAL: The patient is obese, not in acute distress. VITAL SIGNS: Temperature 36.6, pulse 83, respiratory rate 18, blood pressure 183/60, oxygen 97% on room air. HEENT: Pupils equal, round and reactive to light. Oral mucosa moist. NECK: No JVD. No neck mass. HEART: S1 and S2 heard. Ejection systolic murmur heard. Regular rate and rhythm. RESPIRATORY SYSTEM: Normal AP diameter. No accessory muscle use. No wheezing, no crackles. ABDOMEN: Soft, bowel sounds present, nontender, no distention. CENTRAL NERVOUS SYSTEM: Cranial nerves II-XII grossly intact. Power 5/5 in all extremities. Sensation is intact. No facial droop. Speech is clear. EXTREMITIES: No edema, no erythema seen. LABORATORY DATA: WBC 12.3, hemoglobin 9.3, hematocrit 29, platelets 298. PT 9.6, INR 0.9, APTT 23.1. Sodium 134, potassium 4.2, chloride 97, bicarbonate 24, BUN 67, creatinine 3.7, serum glucose 109, calcium 9.3, magnesium 2.5, total bilirubin 0.3, AST 16, ALT 18, alkaline phosphatase 146. Troponin I less than 0.015. Lipase 155. procalcitonin less than 0.05. Urinalysis, +2 protein, Bio[employer] negative. CT abdomen and pelvis, no acute abnormalities. IMAGING: Chest x-ray, no acute disease in the chest. EKG: Sinus rhythm with first-degree AV block with PACs at a rate of 68, nonspecific ST-T abnormalities. QTc 476. ASSESSMENT AND PLAN: This is a 76-year-old female who presents with diarrhea with black stools and feeling weakness. 1. Diarrhea with black stools, last episode of diarrhea at 1:00 a.m. She has a history of recent melena. She has history of GI bleed, found to have arteriovenous malformations, status post cauterization in February,. Again, few days back she had a small bowel endoscopy and found to have a friable gastric mucosa treated with APCs. Currently, again seems to have black stool last night, but she is also on iron tablets. Hemoglobin stable at 9.3. We will follow the fecal occult blood. Gentle fluids. Keep n.p.o. Continue Protonix 40 mg b.i.d. and consult GI in the a.m. for further recommendations. 2. Weakness, probably from ongoing illness. PT, OT when stable. 3. History of chronic kidney disease stage IV. Baseline creatinine 3.4, current creatinine 3.7. Getting gentle fluids. Avoid nephrotoxic agents. We will follow the labs and if creatine gets worse, will consult Nephrology. 4. History of hypertension: Continue home medication of amlodipine, Coreg, hydralazine, furosemide, and HCTZ. We will monitor the blood pressure. 5. Anemia due to chronic kidney disease and also GI loss.hb 9.4. We will follow the repeat labs. 6. Hyperlipidemia, on statin. 7. History of chronic obstructive pulmonary disease on albuterol p.r.n. Currently stable. 8. Deep venous thrombosis prophylaxis: Sequential compression devices for now. DISPOSITION: Closely monitor in the med tele. PT/OT prior to discharge. Social service to help with discharge plan. Level 1 full code. Job ID: [id number] [facility]
[2021-04-07] MEDS: D5W AND NSS 1,000 ML IV SCH ×2 (01:08→21:18)
[2021-04-07 06:19] LABS: Basophils # (auto) 0.02 K/uL (0-0.2); Basophils % (auto) 0.2 %; Eosinophils # (auto) 0.16 K/uL (0-0.5); Eosinophils % (auto) 1.9 %; Hematocrit (blood only) 24.5 % (37-47); Hemoglobin 7.9 g/dL (12.0-16.0); Immature Granulocytes # (auto) 0.01 K/uL (0.00-0.02); Immature Granulocytes % (auto) 0.1 %; Lymphocytes # (auto) 1.87 K/uL (1.2-3.4); Lymphocytes % (auto) 21.9 %; Mean Corpuscular Hemoglobin 28.4 pg (25-34); Mean Corpuscular Hgb Conc 32.2 g/dL (32-36); Mean Corpuscular Volume 88.1 fL (80-100); Mean Platelet Volume 9.7 fL (7.4-10.4); Monocytes % (auto) 4.7 %; Neutrophils # (auto) 6.07 K/uL (1.4-6.5); Neutrophils % (auto) 71.2 %; Platelet Count 265 K/uL (130-400); RDW Coefficient of Variation 17.4 % (11.5-14.5); RDW Standard Deviation 56.6 fL (36.4-46.3); Red Blood Count 2.78 M/uL (4.2-5.4); White Blood Count 8.53 K/uL (4.8-10.8)
[2021-04-07] MEDS ORDERED: PANTOPRAZOLE BOLUS/DRIP 1 EA IV STA (06:45)
[2021-04-07 06:57] LABS: RBC Morphology Unremarkable
[2021-04-07 06:59] LABS: BUN Creatinine Ratio 18.2 (10-20); Calcium 8.8 mg/dl (8.5-10.1); Est GFR (African American) 14.1 ml/min; Est GFR (Non-African American) 12.2 ml/min; Magnesium 2.4 mg/dl (1.8-2.4); Potassium 3.2 mmol/L (3.5-5.1)
[2021-04-07] MEDS ORDERED: PANTOprazole 80 MG in DEXTROSE 5% 100 ML IV ONE (07:00)
[2021-04-07] MEDS: hydroCHLOROthiazide 25 MG TAB PO SCH (08:42)
[2021-04-07] MEDS: PANTOprazole 40 MG in DEXTROSE 5% 100 ML IV SCH ×4 (08:42→22:09)
[2021-04-07] MEDS: hydrALAZINE TAB 50 MG TAB PO SCH ×2 (08:43→22:09)
[2021-04-07] MEDS: CALCIUM 600MG + VIT D 400 IU TAB PO SCH (08:43)
[2021-04-07] MEDS: ASCORBIC ACID 500 MG TAB PO SCH (08:43)
[2021-04-07] MEDS: carvediloL 3.125 MG TAB PO SCH ×2 (08:43→21:19)
[2021-04-07] MEDS: MULTIVITAMIN TAB PO SCH (08:43)
[2021-04-07] MEDS: amLODIPine BESYLATE 5 MG TAB PO SCH (08:43)
[2021-04-07] MEDS: FERROUS SULFATE 325 MG TAB PO SCH ×2 (08:43→21:18)
[2021-04-07] MEDS: FUROSEMIDE 20 MG TAB PO SCH (08:44)
[2021-04-07] MEDS: VITAMIN B COMPLEX TAB PO SCH (08:44)
--- NOTE | 2021-04-07 09:04 | Gastrointestinal Consultation ---
Date of Consultation April 07, 2021 Assessment & Plan (1) Anemia due to GI blood loss: The patient is a very pleasant 76-year-old female who presented to the hospital with fatigue, weakness, dizziness and a history of hemorrhagic gastritis with proximal jejunal AVMs. Most recently admitted 03/30/2021 to 04/01/2021 and underwent small bowel enteroscopy with patchy mild friable mucosa with contact bleeding in the stomach with angio ectasias of the duodenum and jejunum treated with APC. This is her third admission in the last month for symptomatic anemia. Plan at this time will be for small bowel enteroscopy to be performed 04/08/2021. May advance diet to clear liquid if patient tolerates. N.p.o. after midnight. Continue other supportive care. Transfuse prn. Please refer to supervising physician addendum for further recommendations. Supervising Physician Co-Signing Physician Notes I interviewed and examined the patient and reviewed the medical record, with the following observations: Subjective: Ms. Chapin has been taking daily low dose aspirin for years, and she occasionally takes a generic NSAID (once every 2 weeks) for joint pains. Nodular duodenitis and gastritis seen on previous EGDs and bleeding may be due to NSAID gastroduodenopathy Physical Examination: Patient has chest wall tenderness with palpation of the xyphoid process and lower sternum Chart Review: Previous duodenal biopsies reviewed, biopsies are consistent with nodular duodenitis, repeat biopsies to be done on examination tomorrow This case was reviewed with the advanced practice provider I agree with the assessment as outlined in this consultation, with the following observations: On recent examinations, multiple AVMs detected without bleeding or stigmata. Gastritis and duodenitis detected. with flecks of blood seen in the stomach I agree with the plan of care as outlined in this consultation, with the following changes and/or additions: Repeat EGD planned for tomorrow with additional biopsies from the stomach and duodenum and cautery of AVMs as needed. Further recommendations to follow EGD. The recommended procedure was discussed with the patient, including the indications for examination and potential benefits, risks, alternatives, potential outcomes, and post procedure plans of care. All questions were addressed and answered, understanding was acknowledged, and consent was obtained History of Present Illness Attending Physician: Stephen Arriaga MD History of Present Illness The patient is a pleasant 76-year-old female with past medical history to include anemia, cardiac murmur, chronic back pain, stage IV kidney disease, COPD, GERD, gout, hyperlipidemia, hypertension, peripheral arterial disease, tobacco use disorder who presented to the emergency department 04/06/2021 due to complaints of dizziness, fatigue, weakness, near syncope subsequently admitted for symptomatic anemia. The GI service was consulted due to her recent history of hemorrhagic gastritis with proximal jejunal AVMs that were cauterized. Records reviewed: 03/31/2021: Small bowel endoscopy performed by Dr. Howe due to history of jejunal AVMs and melena demonstrated an irregular Z-line found 40 cm from the incisors; 2 cm hiatal hernia; patchy mild friable mucosa with contact bleeding found on the lesser curvature of the gastric body; localized nodular mucosa found in the second portion of the duodenum with biopsies obtained; one angio ectasia with no bleeding found in the second portion of the duodenum. Treated with APC. 7 angio ectasias with no bleeding were found in the entire examined portion of the jejunum. Treated with APC. Exam was otherwise normal. 03/12/2021: Small bowel enteroscopy demonstrated - 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 Treated with argon plasma coagulation (APC). - Erythematous duodenopathy in the gastric fundus. - Medium-sized hiatal hernia. - No specimens collected. 10/11/2020: EGD notes are reviewed performed due to iron deficiency anemia secondary to chronic blood loss and melena which demonstrated a regular Z-line found 39 cm from incisors; examined esophagus was normal; a single 5 mm semi- sessile polyp with no bleeding and no stigmata of recent bleeding found the gastric body; examined duodenum was normal. No specimens were collected. 06/16/2019: Small bowel enteroscopy performed by Dr. 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 04/26/2019: EGD performed by Dr. Méndez due to iron deficiency anemia and heme positive stool demonstrated a regular Z-line found 37 cm from incisors; examined esophagus was normal; entire stomach was normal; ampulla and examined duodenum were normal. 09/22/2018: Colonoscopy notes reviewed performed by Dr. Méndez due to melena and iron deficiency anemia demonstrated a 5 mm polyp in the sigmoid colon, 7 mm polyp in the ascending colon, 8 mm polyp in the sigmoid colon all of which were removed. Pathology demonstrated hyperplastic polyps On exam/interview today, the patient is lying in bed and position of comfort. She wakes easily with verbal stimuli. Reports that she got a hemoglobin shot on of last week. She then had noted increasing fatigue, weakness, presyncope, dizziness. Denies any specific nausea or vomiting. She has had some low grade epigastric pain that became significantly worse over the last several days. She reports 2 days ago she experienced diarrhea stools and began noticing melena. Denies any bright red bleeding. Prior abdominal surgical history includes cholecystectomy. The patient is a current smoker. She is been smoking 1 pack of cigarettes per day for at least the last 50 years. Denies any alcohol use. Denies use of recreational drugs including marijuana. She is . She has 4 adult children and multiple grandchildren and great-grandchildren. She retired at the age of 62. Allergies Allergy/AdvReac Type Severity Reaction Status Date / Time Bactrim Allergy Severe ELEVATED Verified 08/15/13 14:34 POTASSIUM, BRADYCARDIC "HEART TRIED TO SHUT DOWN" sulfamethoxazole Allergy Severe ELEVATED Verified 04/06/21 18:54 POTASSIUM, BRADYCARDIC "HEART TRIED TO SHUT DOWN" trimethoprim Allergy Severe ELEVATED Verified 04/06/21 18:54 POTASSIUM, BRADYCARDIC "HEART TRIED TO SHUT DOWN" gabapentin Allergy Intermediate HALLUCINATIONS; Verified 04/06/21 18:54 SCREAMING/YELLING codeine Allergy Mild RASH, Verified 04/06/21 18:54 RAPID HEART BEAT hydromorphone [From Dilaudid] AdvReac Mild Hallucinati Verified 04/06/21 18:54 ng morphine AdvReac Unknown Unknown Verified 04/06/21 18:54 oxycodone [From Percocet] AdvReac Unknown Unknown Verified 04/06/21 18:54 Home Medications Medication Instructions Recorded Confirmed Type aspirin 81 mg tablet,delayed 81 mg PO QAM 09/16/18 04/06/21 History release atorvastatin 40 mg tablet 40 mg PO QPM 09/16/18 04/06/21 History calcium carbonate-vitamin D3 600 1 cap PO QAM 09/16/18 04/06/21 History mg calcium-200 unit capsule (Calcium 600 + D(3)) hydralazine 100 mg tablet 100 mg PO BID 04/19/19 04/06/21 History amlodipine 10 mg tablet 10 mg PO QAM 10/10/20 04/06/21 History carvedilol 3.125 mg tablet 3.125 mg PO BID 10/10/20 04/06/21 History ascorbic acid (vitamin C) 500 mg 500 mg PO QAM 12/10/20 04/06/21 History tablet (Vitamin C) multivitamin 1 tab PO DAILY 12/10/20 04/06/21 History B-complex with vitamin C 1 tab PO QAM 02/17/21 04/06/21 History furosemide 20 mg tablet 20 mg PO QAM 02/17/21 04/06/21 History hydrochlorothiazide 50 mg tablet 50 mg PO QAM 02/17/21 04/06/21 History dexlansoprazole 60 mg 60 mg PO PM 03/12/21 04/06/21 History capsule,biphase delayed release (Dexilant) nitroglycerin 0.4 mg sublingual 0.4 mg SUBLINGUAL DIRECTED PRN 03/30/21 04/06/21 History tablet trazodone 50 mg tablet 25 mg PO HS PRN 03/30/21 04/06/21 History pantoprazole 40 mg tablet,delayed 40 mg PO BID #60 tab 04/01/21 04/06/21 Rx release albuterol sulfate 90 mcg/actuation 2 puff INHALATION UD PRN 04/06/21 04/06/21 History aerosol inhaler ferrous sulfate 325 mg (65 mg 325 mg PO BID 04/06/21 04/06/21 History iron) tablet Patient History Medical History Anemia Cardiac murmur Carotid stenosis, left Left carotid endarterectomy 11/2020 [facility] with Dr Love Chronic back pain Chronic kidney disease, stage 4 (severe) Generalized weakness GERD (gastroesophageal reflux disease) Gout hx History of upper gastrointestinal bleeding Hyperlipidemia Hypertension Mesenteric artery stenosis Renal artery stenosis Surgical History History of bilateral cataract extraction History of carotid endarterectomy (12/10/20) [facility] with Dr Love History of carpal tunnel release of both wrists History of cholecystectomy History of colonoscopy with polypectomy History of esophagogastroduodenoscopy (EGD) History of laminectomy History of repair of right rotator cuff History of tooth extraction all teeth removed Family History Mother Family history of diabetes mellitus Brother Family history of diabetes mellitus Sister Family history of diabetes mellitus Other No family history of adverse response to anesthesia Social History Smoking Status: Current every day smoker Tobacco Type: Cigarettes Cigarettes Per Day: 20; Second Hand Exposure: No; Hx Alcohol Use: No Hx Substance Use: No Preferred Language: [place] Communication Ability: Effective General Activities Therapist Required: No Beliefs That Will Affect Care: None marital status: Current Living Situation: Alone How many Children do You have: 2 Other Information That Helps Us Care for You: No Feels Safe at Home: Yes Safety Concerns: Feels Safe At This Time Assistive Devices: Walker Review of Systems Review of Systems: All systems reviewed & are unremarkable except as noted in Subjective Physical Exam Constitutional: WD/WN, vitals as above + ill appearing (chronically) Respiratory: normal respiratory effort, lungs clear to auscultation Cardiovascular: RRR, no murmur, no edema Gastrointestinal (Abdomen): Inspection/Auscultation: abdomen normal to inspection and normal bowel sounds; abdomen not distended Percussion/Palpation: + abdomen tender (epigastric) and abdomen soft; no guarding and abdomen not rigid Psychiatric: A+Ox3, euthymic affect Results & Data ([facility]) Vital Signs (Past 12 Hours) Vital Signs Temp Pulse Pulse Resp BP Pulse Ox 04/07/21 07:36 36.8 C 64 18 174/61 H 94 04/07/21 03:26 36.8 C 70 16 133/55 L 97 04/06/21 23:55 36.5 C 76 78 18 169/66 H 96 04/06/21 22:24 83 183/60 H 97 Laboratory Results Laboratory Results - last 24 hr 04/06/21 04/06/21 04/06/21 18:04 18:04 18:43 WBC RBC Hgb Hct MCV MCH MCHC RDW Std Deviation RDW Coeff of Kris Plt Count MPV Immature Gran % (Auto) Neut % (Auto) Lymph % (Auto) Howell % (Auto) Eos % (Auto) Baso % (Auto) Neut # (Auto) Lymph # (Auto) Howell # (Auto) Eos # (Auto) Baso # (Auto) Immature Gran # (Auto) RBC Morphology PT INR APTT PTT Ratio Sodium Potassium Chloride Carbon Dioxide Anion Gap BUN Creatinine Est Cr Clr Drug Dosing Est GFR ( Amer) Est GFR (Non-Af Amer) BUN/Creatinine Ratio Glucose Calcium Magnesium Total Bilirubin AST ALT Alkaline Phosphatase Troponin I Total Protein Albumin Globulin Albumin/Globulin Ratio Lipase Procalcitonin Urine Color Urine Appearance Urine pH Ur Specific H[place]ons Urine Protein Urine Glucose (UA) Urine Ketones Urine Blood Urine Nitrite Urine Bilirubin Urine Urobilinogen Ur Leukocyte Esterase Urine WBC (Auto) Urine RBC (Auto) U Hyaline Cast (Auto) U Epithel Cells (Auto) Urine Bacteria (Auto) Adenovirus (PCR) Not Detected B. pertussis DNA (PCR) Not Detected B.parapertussis DNA PCR Not Detected C. pneumoniae DNA (PCR) Not Detected Coronavirus OC43 (PCR) Not Detected Coronavirus HKU1 (PCR) Not Detected Coronavirus 229E (PCR) Not Detected COVID-19 Eval Order RESPNP at [facility] SARS-CoV-2 (PCR) Not Detected Coronavirus NL63 (PCR) Not Detected Human Metapneumovir PCR Not Detected Influenza Type A (PCR) Not Detected Influenza Type B (PCR) Not Detected M. pneumoniae (PCR) Not Detected Parainfluenza 1 (PCR) Not Detected Parainfluenza 2 (PCR) Not Detected Parainfluenza 3 (PCR) Not Detected Parainfluenza 4 (PCR) Not Detected RSV (PCR) Not Detected Entero/Rhino (PCR) Not Detected Blood Type O Positive Antibody Screen NEGATIVE 04/06/21 04/06/21 04/06/21 18:43 18:43 18:43 WBC 12.30 H RBC 3.30 L Hgb 9.3 L Hct 29.0 L MCV 87.9 MCH 28.2 MCHC 32.1 RDW Std Deviation 56.7 H RDW Coeff of Kris 17.4 H Plt Count 298 MPV 9.8 Immature Gran % (Auto) Neut % (Auto) Lymph % (Auto) Howell % (Auto) Eos % (Auto) Baso % (Auto) Neut # (Auto) Lymph # (Auto) Howell # (Auto) Eos # (Auto) Baso # (Auto) Immature Gran # (Auto) RBC Morphology PT 9.6 INR 0.9 APTT 23.1 PTT Ratio 0.9 Sodium 134 L Potassium 4.2 Chloride 99 Carbon Dioxide 24 Anion Gap 11.0 BUN 67 H Creatinine 3.72 H Est Cr Clr Drug Dosing 14.9 Est GFR ( Amer) 12.9 Est GFR (Non-Af Amer) 11.2 BUN/Creatinine Ratio 18.0 Glucose 109 H Calcium 9.3 Magnesium 2.5 H Total Bilirubin 0.3 AST 16 ALT 18 Alkaline Phosphatase 146 H Troponin I < 0.015 Total Protein 7.0 Albumin 3.3 L Globulin 3.7 Albumin/Globulin Ratio 0.9 Lipase 155 Procalcitonin Urine Color Urine Appearance Urine pH Ur Specific H[place]ons Urine Protein Urine Glucose (UA) Urine Ketones Urine Blood Urine Nitrite Urine Bilirubin Urine Urobilinogen Ur Leukocyte Esterase Urine WBC (Auto) Urine RBC (Auto) U Hyaline Cast (Auto) U Epithel Cells (Auto) Urine Bacteria (Auto) Adenovirus (PCR) B. pertussis DNA (PCR) B.parapertussis DNA PCR C. pneumoniae DNA (PCR) Coronavirus OC43 (PCR) Coronavirus HKU1 (PCR) Coronavirus 229E (PCR) COVID-19 Eval Order SARS-CoV-2 (PCR) Coronavirus NL63 (PCR) Human Metapneumovir PCR Influenza Type A (PCR) Influenza Type B (PCR) M. pneumoniae (PCR) Parainfluenza 1 (PCR) Parainfluenza 2 (PCR) Parainfluenza 3 (PCR) Parainfluenza 4 (PCR) RSV (PCR) Entero/Rhino (PCR) Blood Type Antibody Screen 04/06/21 04/06/21 04/07/21 19:53 20:36 05:41 WBC 8.53 RBC 2.78 L Hgb 7.9 L Hct 24.5 L MCV 88.1 MCH 28.4 MCHC 32.2 RDW Std Deviation 56.6 H RDW Coeff of Kris 17.4 H Plt Count 265 MPV 9.7 Immature Gran % (Auto) 0.1 Neut % (Auto) 71.2 Lymph % (Auto) 21.9 Howell % (Auto) 4.7 Eos % (Auto) 1.9 Baso % (Auto) 0.2 Neut # (Auto) 6.07 Lymph # (Auto) 1.87 Howell # (Auto) 0.40 Eos # (Auto) 0.16 Baso # (Auto) 0.02 Immature Gran # (Auto) 0.01 RBC Morphology Unremarkable PT INR APTT PTT Ratio Sodium Potassium Chloride Carbon Dioxide Anion Gap BUN Creatinine Est Cr Clr Drug Dosing Est GFR ( Amer) Est GFR (Non-Af Amer) BUN/Creatinine Ratio Glucose Calcium Magnesium Total Bilirubin AST ALT Alkaline Phosphatase Troponin I Total Protein Albumin Globulin Albumin/Globulin Ratio Lipase Procalcitonin < 0.05 Urine Color Yellow Urine Appearance Clear Urine pH 6.0 Ur Specific Hiltons 1.010 Urine Protein 2+ H Urine Glucose (UA) Negative Urine Ketones Negative Urine Blood Negative Urine Nitrite Negative Urine Bilirubin Negative Urine Urobilinogen Negative Ur Leukocyte Esterase Negative Urine WBC (Auto) 1-5 Urine RBC (Auto) 0-4 U Hyaline Cast (Auto) 1-5 U Epithel Cells (Auto) >30 H Urine Bacteria (Auto) Negative Adenovirus (PCR) B. pertussis DNA (PCR) B.parapertussis DNA PCR C. pneumoniae DNA (PCR) Coronavirus OC43 (PCR) Coronavirus HKU1 (PCR) Coronavirus 229E (PCR) COVID-19 Eval Order SARS-CoV-2 (PCR) Coronavirus NL63 (PCR) Human Metapneumovir PCR Influenza Type A (PCR) Influenza Type B (PCR) M. pneumoniae (PCR) Parainfluenza 1 (PCR) Parainfluenza 2 (PCR) Parainfluenza 3 (PCR) Parainfluenza 4 (PCR) RSV (PCR) Entero/Rhino (PCR) Blood Type Antibody Screen 04/07/21 05:41 WBC RBC Hgb Hct MCV MCH MCHC RDW Std Deviation RDW Coeff of Kris Plt Count MPV Immature Gran % (Auto) Neut % (Auto) Lymph % (Auto) Howell % (Auto) Eos % (Auto) Baso % (Auto) Neut # (Auto) Lymph # (Auto) Howell # (Auto) Eos # (Auto) Baso # (Auto) Immature Gran # (Auto) RBC Morphology PT INR APTT PTT Ratio Sodium 137 Potassium 3.2 L D Chloride 103 Carbon Dioxide 26 Anion Gap 8.0 BUN 63 H Creatinine 3.46 H Est Cr Clr Drug Dosing 16.0 Est GFR ( Amer) 14.1 Est GFR (Non-Af Amer) 12.2 BUN/Creatinine Ratio 18.2 Glucose 90 Calcium 8.8 Magnesium 2.4 Total Bilirubin AST ALT Alkaline Phosphatase Troponin I Total Protein Albumin Globulin Albumin/Globulin Ratio Lipase Procalcitonin Urine Color Urine Appearance Urine pH Ur Specific [place] Urine Protein Urine Glucose (UA) Urine Ketones Urine Blood Urine Nitrite Urine Bilirubin Urine Urobilinogen Ur Leukocyte Esterase Urine WBC (Auto) Urine RBC (Auto) U Hyaline Cast (Auto) U Epithel Cells (Auto) Urine Bacteria (Auto) Adenovirus (PCR) B. pertussis DNA (PCR) B.parapertussis DNA PCR C. pneumoniae DNA (PCR) Coronavirus OC43 (PCR) Coronavirus HKU1 (PCR) Coronavirus 229E (PCR) COVID-19 Eval Order SARS-CoV-2 (PCR) Coronavirus NL63 (PCR) Human Metapneumovir PCR Influenza Type A (PCR) Influenza Type B (PCR) M. pneumoniae (PCR) Parainfluenza 1 (PCR) Parainfluenza 2 (PCR) Parainfluenza 3 (PCR) Parainfluenza 4 (PCR) RSV (PCR) Entero/Rhino (PCR) Blood Type Antibody Screen
--- NOTE | 2021-04-07 13:55 | Hospitalist Progress Note ---
Date of Service April 07, 2021 Assessment & Plan (1) Acute upper gastrointestinal bleeding: Plan: Acute blood loss anemia in setting of suspected GI bleeding GI bleeding in the setting of suspected AVMs as was seen in previous EGDs History of recurrent upper GI blood loss Admitted with another episode of diarrhea associated with black stool Appreciate GI input and recommendation Has been on Protonix drip Monitor H&H and EGD tomorrow (2) Complaint of melena: Plan: Has had diarrhea and noted to have black stool Hemoglobin is dropped from 9.3-7.9 Patient remains hemodynamically stable (3) Chronic kidney disease, stage 4 (severe): Plan: Has stage IV chronic kidney disease with a creatinine of 3.46 as of 04/07/2021 and seems to be stable (4) Weakness: Plan: Generalized weakness multifactorial Chronic kidney disease, dehydration and anemia (5) GERD (gastroesophageal reflux disease): Plan: On PPI Has epigastric discomfort DVT prophylaxis SCDs due to GI bleed CODE STATUS Full Admission and Anticipated Discharge Date Admission Date: April 06, 2021 Subjective 04/07/2021 The patient was seen and examined in medical telemetry unit She was admitted yesterday with another episode of upper GI bleed with diarrhea and melena Complains to have some abdominal discomfort in the epigastrium Denies any nausea and or vomiting Review of Systems Review of Systems: All systems reviewed and are unremarkable except as noted below Gastrointestinal: Minimal epigastric discomfort Physical Exam Physical Exam: Lying in bed comfortably Constitutional: well developed, well nourished, + ill appearing and + obese Eyes: PERRL, conjunctivae normal, anicteric sclerae ENMT: external ear and nose normal, oropharynx normal Neck: trachea midline, no thyromegaly Respiratory: no respiratory distress and no cough Auscultation: lungs clear to auscultation bilaterally Cardiovascular: Rate/Rhythm: regular rate and regular rhythm; not tachycardic Heart Sounds: normal S1 and normal S2; no murmur Extremities: + edema (Trace edema bilaterally) Gastrointestinal (Abdomen): Inspection/Auscultation: normal bowel sounds; abdomen not distended Percussion/Palpation: + abdomen tender (Minimally tender in the epigastrium without any guarding and no rigidity) and abdomen soft Musculoskeletal: No acute arthritis in any joint Neurologic: Alert, awake and oriented x3. No focal sensory and motor deficit appreciated Psychiatric: A+Ox3, euthymic affect Lymphatic: no cervical or axillary lymphadenopathy Results & Data Results & Data ([facility]) Vital Signs (Past 12 Hours) Vital Signs Temp Pulse Pulse Resp BP Pulse Ox 04/07/21 11:19 36.8 C 65 18 127/66 97 04/07/21 09:27 65 04/07/21 07:36 36.8 C 64 18 174/61 H 94 04/07/21 03:26 36.8 C 70 16 133/55 L 97 Laboratory Results Short CBC 04/06/21 04/07/21 Range/Units 18:43 05:41 WBC 12.30 H 8.53 (4.8-10.8) K/uL Hgb 9.3 L 7.9 L (12.0-16.0) g/dL Hct 29.0 L 24.5 L (37-47) % Plt Count 298 265 (130-400) K/uL BMP 04/06/21 04/07/21 18:43 05:41 Sodium 134 L 137 Potassium 4.2 3.2 L D Chloride 99 103 Carbon Dioxide 24 26 BUN 67 H 63 H Creatinine 3.72 H 3.46 H Glucose 109 H 90 Calcium 9.3 8.8 Cardiac Enzymes 04/06/21 Range/Units 18:43 Troponin I < 0.015 (0-0.045) ng/ml Liver Function 04/06/21 Range/Units 18:43 Total Bilirubin 0.3 (0.2-1) mg/dl AST 16 (15-37) U/L ALT 18 (12-78) U/L Alkaline Phosphatase 146 H (45-117) U/L Albumin 3.3 L (3.4-5.0) gm/dl Urine 04/06/21 Range/Units 20:36 Urine Color Yellow Urine Appearance Clear (Clear) Urine pH 6.0 (4.5-7.5) Ur Specific [place] 1.010 (1.000-1.030) Urine Protein 2+ H (Negative) Urine Glucose (UA) Negative (Negative) Medications Administered Current Inpatient Medications Acetaminophen (Acetaminophen 325 Mg Tab) 650 mg PO Q4H PRN PRN Reason: Pain or Fever Stop: 05/06/21 23:49 Albuterol (Albuterol Hfa 8 Gm Inhaler) 2 puffs INH DAILY PRN PRN Reason: Shortness Of Breath Or Wheezin Stop: 05/06/21 23:49 Amlodipine Besylate (Amlodipine Besylate 5 Mg Tab) 10 mg PO QAM [facility] Stop: 05/07/21 08:59 Last Admin: 04/07/21 08:43 Dose: 10 mg Documented by: Ascorbic Acid (Ascorbic Acid 500 Mg Tab) 500 mg PO QAM EVON Stop: 05/07/21 08:59 Last Admin: 04/07/21 08:43 Dose: 500 mg Documented by: Atorvastatin Calcium (Atorvastatin 40 Mg Tab) 40 mg PO QPM EVON Stop: 05/07/21 20:59 Carvedilol (Carvedilol 3.125 Mg Tab) 3.125 mg PO BID EVON Stop: 05/07/21 08:59 Last Admin: 04/07/21 08:43 Dose: 3.125 mg Documented by: Ferrous Sulfate (Ferrous Sulfate 325 Mg Tab) 325 mg PO BID EVON Stop: 05/07/21 08:59 Last Admin: 04/07/21 08:43 Dose: 325 mg Documented by: Furosemide (Furosemide 20 Mg Tab) 20 mg PO QAM EVON Stop: 05/07/21 08:59 Last Admin: 04/07/21 08:44 Dose: 20 mg Documented by: Hydralazine HCl (Hydralazine Tab 50 Mg Tab) 100 mg PO BID EVON Stop: 05/07/21 08:59 Last Admin: 04/07/21 08:43 Dose: 100 mg Documented by: Hydrochlorothiazide (Hydrochlorothiazide 25 Mg Tab) 50 mg PO QAM EVON Stop: 05/07/21 08:59 Last Admin: 04/07/21 08:42 Dose: 50 mg Documented by: Dextrose/Sodium Chloride (D5w And Nss) 1,000 mls @ 50 mls/hr IV .Q20H EVON Stop: 05/06/21 23:49 Last Admin: 04/07/21 01:08 Dose: 50 mls/hr Documented by: Pantoprazole Sodium 40 mg/ (Dextrose) 100 mls @ 20 mls/hr IV Q5H EVON Stop: 05/07/21 07:14 Last Admin: 04/07/21 13:28 Dose: 8 mg/hr, 20 mls/hr Documented by: Multivitamins (Multivitamin Tab) 1 tab PO DAILY EVON Stop: 05/07/21 08:59 Last Admin: 04/07/21 08:43 Dose: 1 tab Documented by: Multivitamins/Minerals (Calcium 600mg + Vit D 400 Iu Tab) 1 tab PO QAM [facility] Stop: 05/07/21 08:59 Last Admin: 04/07/21 08:43 Dose: 1 tab Documented by: Nitroglycerin (Nitroglycerin Sl 0.4 Mg/Tab Tab) 0.4 mg SL UD PRN PRN Reason: Chest Pain Stop: 05/06/21 23:49 Ondansetron HCl (Ondansetron Inj 2 Mg/Ml 2 Ml Vial) 4 mg IV Q6H PRN PRN Reason: Nausea Stop: 05/06/21 23:49 Pantoprazole Sodium (Pantoprazole 40 Mg Tab) 40 mg PO BID [facility] Stop: 05/06/21 23:49 Last Admin: 04/07/21 01:08 Dose: 40 mg Documented by: Trazodone HCl (Trazodone Hcl 50 Mg Tab) 25 mg PO HS PRN PRN Reason: Sleep Stop: 05/06/21 23:49 Vitamin B Complex (Vitamin B Complex Tab) 1 tab PO QAM [facility] Stop: 05/07/21 08:59 Last Admin: 04/07/21 08:44 Dose: 1 tab Documented by:
--- NOTE | 2021-04-07 16:17 | Electrocardiogram Report ---
Test Reason : Blood Pressure : / mmHG Vent. Rate : 068 BPM Atrial Rate : 068 BPM P-R Int : 244 ms QRS Dur : 092 ms QT Int : 448 ms P-R-T Axes : 085 011 059 degrees QTc Int : 476 ms Poor data quality, interpretation may be adversely affected Sinus rhythm with 1st degree A-V block with Premature atrial complexes Diffuse Minor Nonspecific ST and T wave abnormality Abnormal ECG When compared with ECG of 30-MAR-2021 13:12, Premature ventricular complexes are no longer Present Premature atrial complexes are now Present Confirmed by Rex Granda ([id number]) on 04/07/2021 4:17:13 PM Referred By: REFERRED SELF Confirmed By:Rex Grnada
[2021-04-07] MEDS: ATORVASTATIN 40 MG TAB PO SCH (21:19)
[2021-04-08] MEDS: PANTOprazole 40 MG in DEXTROSE 5% 100 ML IV SCH ×4 (03:46→20:47)
[2021-04-08 07:35] LABS: Basophils # (auto) 0.02 K/uL (0-0.2); Basophils % (auto) 0.3 %; Eosinophils # (auto) 0.12 K/uL (0-0.5); Eosinophils % (auto) 1.9 %; Hemoglobin 7.9 g/dL (12.0-16.0); Immature Granulocytes # (auto) 0.01 K/uL (0.00-0.02); Immature Granulocytes % (auto) 0.2 %; Lymphocytes # (auto) 1.56 K/uL (1.2-3.4); Lymphocytes % (auto) 24.1 %; Mean Corpuscular Hemoglobin 28.1 pg (25-34); Mean Corpuscular Hgb Conc 31.6 g/dL (32-36); Mean Platelet Volume 9.4 fL (7.4-10.4); Monocytes # (auto) 0.29 K/uL (0.11-0.59); Monocytes % (auto) 4.5 %; Neutrophils # (auto) 4.47 K/uL (1.4-6.5); Platelet Count 257 K/uL (130-400); RDW Coefficient of Variation 17.4 % (11.5-14.5); RDW Standard Deviation 57.4 fL (36.4-46.3); Red Blood Count 2.81 M/uL (4.2-5.4); White Blood Count 6.47 K/uL (4.8-10.8)
[2021-04-08 08:03] LABS: BUN Creatinine Ratio 17.2 (10-20); Calcium 8.8 mg/dl (8.5-10.1); Creatinine Clr Calc Pharmacy 17.3 ml/min; Est GFR (African American) 15.5 ml/min; Est GFR (Non-African American) 13.4 ml/min; Potassium 3.2 mmol/L (3.5-5.1)
[2021-04-08 08:19] LABS: Anisocytosis Present; Poikilocytosis Present
--- NOTE | 2021-04-08 08:44 | Gastroenterology Progress Note ---
Date of Service April 08, 2021 Assessment & Plan (1) Anemia due to GI blood loss: Plan: Repeat EGD planned for tomorrow with additional biopsies from the stomach and duodenum and cautery of AVMs as needed. Procedure and risks explained to patient which include but not limited to medication reaction, bleeding, perforation, aspiration, and missed lesions. Verbalizes understanding and is agreeable to proceed. Further recommendations to follow EGD. NPO in antic ipation of procedure, continue other supportive care. Transfuse prn. Please refer to supervising physician addendum for further recommendations. Admission and Anticipated Discharge Date Admission Date: April 06, 2021 Supervising Physician Co-Signing Physician Notes I interviewed and examined the patient and reviewed the medical record, with the following observations: Subjective: No new complaints or findings since last examination Physical Examination: No further GI bleeding detected since last exam Chart Review: No additional pertinent findings This case was reviewed with the advanced practice provider I agree with the assessment as outlined in this consultation, with the following observations: I agree with the plan of care as outlined in this consultation, with the following changes and/or additions: Plan to proceed with EGD for evaluation of persistent GI bleeding, biopsies from the stomach and duodenal bulb, and possible treatment of bleeding lesions. The recommended procedure was discussed with the patient, including the indications for examination and potential benefits, risks, alternatives, potential outcomes, and post procedure plans of care. All questions were addressed and answered, understanding was acknowledged, and consent was obtained Subjective Patient is sleeping but wakes easily with verbal stimuli. She reports no specific complaints this morning. Denies any nausea or vomiting. She has not had a bowel movement since admission. She is having some upper abdominal discomfort but only with palpation and this is over her lower sternum. Denies any specific abdominal pain this morning. Review of Systems Review of Systems: All systems reviewed & are unremarkable except as noted in Subjective Physical Exam Constitutional: WD/WN, vitals as above + ill appearing (chronically) Respiratory: normal respiratory effort, lungs clear to auscultation Cardiovascular: RRR, no murmur, no edema Gastrointestinal (Abdomen): Inspection/Auscultation: abdomen normal to inspection and normal bowel sounds; abdomen not distended Percussion/Palpation: abdomen soft; no guarding and abdomen not rigid Psychiatric: A+Ox3, euthymic affect Results & Data ([facility]) Vital Signs (Past 12 Hours) Vital Signs Temp Pulse Pulse Resp BP Pulse Ox 04/08/21 08:00 67 04/08/21 07:20 36.8 C 65 20 165/61 H 94 04/08/21 03:44 37 C 61 16 158/63 H 97 04/08/21 01:36 70 04/07/21 23:21 37.4 C 65 18 157/50 H 97 Laboratory Results Laboratory Results - last 24 hr 04/08/21 04/08/21 07:04 07:04 WBC 6.47 RBC 2.81 L Hgb 7.9 L Hct 25.0 L MCV 89.0 MCH 28.1 MCHC 31.6 L RDW Std Deviation 57.4 H RDW Coeff of Kris 17.4 H Plt Count 257 MPV 9.4 Immature Gran % (Auto) 0.2 Neut % (Auto) 69.0 Lymph % (Auto) 24.1 [place] % (Auto) 4.5 Eos % (Auto) 1.9 Baso % (Auto) 0.3 Neut # (Auto) 4.47 Lymph # (Auto) 1.56 [place] # (Auto) 0.29 Eos # (Auto) 0.12 Baso # (Auto) 0.02 Immature Gran # (Auto) 0.01 Poikilocytosis Present Anisocytosis Present Sodium 139 Potassium 3.2 L Chloride 107 Carbon Dioxide 24 Anion Gap 9.0 BUN 55 H Creatinine 3.20 H Est Cr Clr Drug Dosing 17.3 Est GFR ( Amer) 15.5 Est GFR (Non-Af Amer) 13.4 BUN/Creatinine Ratio 17.2 Glucose 99 Calcium 8.8
[2021-04-08] MEDS: hydrALAZINE TAB 50 MG TAB PO SCH ×2 (08:49→20:49)
[2021-04-08] MEDS: amLODIPine BESYLATE 5 MG TAB PO SCH (08:50)
[2021-04-08] MEDS: CALCIUM 600MG + VIT D 400 IU TAB PO SCH (08:50)
[2021-04-08] MEDS: ASCORBIC ACID 500 MG TAB PO SCH (08:50)
[2021-04-08] MEDS: FERROUS SULFATE 325 MG TAB PO SCH ×2 (08:51→20:49)
[2021-04-08] MEDS: carvediloL 3.125 MG TAB PO SCH ×2 (08:51→20:48)
[2021-04-08] MEDS: MULTIVITAMIN TAB PO SCH (08:51)
[2021-04-08] MEDS: hydroCHLOROthiazide 25 MG TAB PO SCH (08:52)
[2021-04-08] MEDS: FUROSEMIDE 20 MG TAB PO SCH (08:52)
[2021-04-08] MEDS: VITAMIN B COMPLEX TAB PO SCH (08:52)
--- NOTE | 2021-04-08 15:07 | Anesthesiology Consultation ---
Date of Service April 08, 2021 Assessment & Plan ASA ASA3 Proposed Anesthesia Anesthesia Type: MAC Risk / Benefits Reviewed With: PT / POA / Parent / Guardian, Accepts Plan and Informed Consent Obtained History Surgery Operation Date: 04/08/21 16:30 Proposed Procedures p Small Bowl Enteroscopy - Raz Pathak MD Height/Weight Height: 5 ft 6 in Weight: 94.5 kg Allergies Allergy/AdvReac Type Severity Reaction Status Date / Time Bactrim Allergy Severe ELEVATED Verified 08/15/13 14:34 POTASSIUM, BRADYCARDIC "HEART TRIED TO SHUT DOWN" sulfamethoxazole Allergy Severe ELEVATED Verified 04/06/21 18:54 POTASSIUM, BRADYCARDIC "HEART TRIED TO SHUT DOWN" trimethoprim Allergy Severe ELEVATED Verified 04/06/21 18:54 POTASSIUM, BRADYCARDIC "HEART TRIED TO SHUT DOWN" gabapentin Allergy Intermediate HALLUCINATIONS; Verified 04/06/21 18:54 SCREAMING/YELLING codeine Allergy Mild RASH, Verified 04/06/21 18:54 RAPID HEART BEAT hydromorphone [From Dilaudid] AdvReac Mild Hallucinati Verified 04/06/21 18:54 ng morphine AdvReac Unknown Unknown Verified 04/06/21 18:54 oxycodone [From Percocet] AdvReac Unknown Unknown Verified 04/06/21 18:54 Medications Home Medications Medication Instructions Recorded Confirmed Last Taken aspirin 81 mg tablet,delayed 81 mg PO QAM 09/16/18 04/06/21 03/30/21 release atorvastatin 40 mg tablet 40 mg PO QPM 09/16/18 04/06/21 03/29/21 calcium carbonate-vitamin D3 600 1 cap PO QAM 09/16/18 04/06/21 03/30/21 mg calcium-200 unit capsule (Calcium 600 + D(3)) hydralazine 100 mg tablet 100 mg PO BID 04/19/19 04/06/21 03/30/21 amlodipine 10 mg tablet 10 mg PO QAM 10/10/20 04/06/21 03/30/21 carvedilol 3.125 mg tablet 3.125 mg PO BID 10/10/20 04/06/21 03/29/21 ascorbic acid (vitamin C) 500 mg 500 mg PO QAM 12/10/20 04/06/21 03/30/21 tablet (Vitamin C) multivitamin 1 tab PO DAILY 12/10/20 04/06/21 03/30/21 B-complex with vitamin C 1 tab PO QAM 02/17/21 04/06/21 03/30/21 furosemide 20 mg tablet 20 mg PO QAM 02/17/21 04/06/21 03/30/21 hydrochlorothiazide 50 mg tablet 50 mg PO QAM 02/17/21 04/06/21 03/30/21 dexlansoprazole 60 mg 60 mg PO PM 03/12/21 04/06/21 03/29/21 capsule,biphase delayed release (Dexilant) nitroglycerin 0.4 mg sublingual 0.4 mg SUBLINGUAL DIRECTED PRN 03/30/21 04/06/21 Unknown tablet trazodone 50 mg tablet 25 mg PO HS PRN 03/30/21 04/06/21 03/29/21 25 mg pantoprazole 40 mg tablet,delayed 40 mg PO BID #60 tab 04/01/21 04/06/21 Unknown release albuterol sulfate 90 mcg/actuation 2 puff INHALATION UD PRN 04/06/21 04/06/21 Unknown aerosol inhaler ferrous sulfate 325 mg (65 mg 325 mg PO BID 04/06/21 04/06/21 Unknown iron) tablet Active Medications Generic Name Dose Route Start Last Admin Trade Name Freq PRN Reason Stop Dose Admin Amlodipine Besylate 10 mg 04/07/21 09:00 04/08/21 08:50 Amlodipine Besylate 5 Mg Tab PO 05/07/21 08:59 10 mg QAM EVON Administration Ascorbic Acid 500 mg 04/07/21 09:00 04/08/21 08:50 Ascorbic Acid 500 Mg Tab PO 05/07/21 08:59 500 mg QAM EVON Administration Atorvastatin Calcium 40 mg 04/07/21 21:00 04/07/21 21:19 Atorvastatin 40 Mg Tab PO 05/07/21 20:59 40 mg QPM EVON Administration Carvedilol 3.125 mg 04/07/21 09:00 04/08/21 08:51 Carvedilol 3.125 Mg Tab PO 05/07/21 08:59 3.125 mg BID EVON Administration Ferrous Sulfate 325 mg 04/07/21 09:00 04/08/21 08:51 Ferrous Sulfate 325 Mg Tab PO 05/07/21 08:59 325 mg BID EVON Administration Furosemide 20 mg 04/07/21 09:00 04/08/21 08:52 Furosemide 20 Mg Tab PO 05/07/21 08:59 20 mg QAM EVON Administration Hydralazine HCl 100 mg 04/07/21 09:00 04/08/21 08:49 Hydralazine Tab 50 Mg Tab PO 05/07/21 08:59 100 mg BID EVON Administration Hydrochlorothiazide 50 mg 04/07/21 09:00 04/08/21 08:52 Hydrochlorothiazide 25 Mg Tab PO 05/07/21 08:59 50 mg QAM EVON Administration Dextrose/Sodium Chloride 1,000 mls @ 50 mls/hr 04/06/21 23:50 04/08/21 14:47 D5w And Nss IV 05/06/21 23:49 0 mls/hr .Q20H EVON Infusion Pantoprazole Sodium 40 mg/ 100 mls @ 20 mls/hr 04/07/21 07:15 04/08/21 14:48 Dextrose IV 05/07/21 07:14 0 mg/hr Q5H EVON 0 mls/hr Infusion 8 MG/HR Multivitamins 1 tab 04/07/21 09:00 04/08/21 08:51 Multivitamin Tab PO 05/07/21 08:59 1 tab DAILY EVON Administration Multivitamins/Minerals 1 tab 04/07/21 09:00 04/08/21 08:50 Calcium 600mg + Vit D 400 Iu Tab PO 05/07/21 08:59 1 tab QAM EVON Administration Pantoprazole Sodium 40 mg 04/06/21 23:50 04/07/21 01:08 Pantoprazole 40 Mg Tab PO 05/06/21 23:49 40 mg BID EVON Administration Vitamin B Complex 1 tab 04/07/21 09:00 04/08/21 08:52 Vitamin B Complex Tab PO 05/07/21 08:59 1 tab QAM EVON Administration NPO Date Last Intake of Fluids: 04/07/21 Time Last Intake of Fluids: 23:00 Date Last Intake of Solids: 04/06/21 Time Last Intake of Solids: 19:00 Past Medical History Medical History Anemia Cardiac murmur Carotid stenosis, left Left carotid endarterectomy 11/2020 [facility] with [address] Love Chronic back pain Chronic kidney disease, stage 4 (severe) Generalized weakness GERD (gastroesophageal reflux disease) Gout hx History of upper gastrointestinal bleeding Hyperlipidemia Hypertension Mesenteric artery stenosis Renal artery stenosis Exercise / Class Metabolic Activity II 4-5 Yardwork/Stairs/Walk up hill Past Family History Family History Mother Family history of diabetes mellitus Brother Family history of diabetes mellitus Sister Family history of diabetes mellitus Other No family history of adverse response to anesthesia Past Surgical History Surgical History History of bilateral cataract extraction History of carotid endarterectomy (12/10/20) [facility] with Dr Love History of carpal tunnel release of both wrists History of cholecystectomy History of colonoscopy with polypectomy History of esophagogastroduodenoscopy (EGD) History of laminectomy History of repair of right rotator cuff History of tooth extraction all teeth removed Past Anesthesia History No Hx of Anesthesia Complications and No Family Hx of Anesthesia Complications History of PONV No Hx of PONV and No Hx of Motion Sickness Social History Smoking Status: Current every day smoker tobacco type: cigarettes Smoking cigarettes per day: 20 Hx Alcohol Use: No Alcohol type: wine alcohol intake frequency: holidays/special occasions only Hx Substance Use: No substance use type: does not use Review of Systems denies fever/cough/ colds/ chest pain/ SOB/ KEVIN denies KEVIN Physical Exam Vital Signs Last Vital Signs Temp 36.6 C 04/08/21 14:52 Pulse 87 04/08/21 14:52 Resp 18 04/08/21 14:52 BP 167/63 H 04/08/21 14:52 Pulse Ox 95 04/08/21 14:52 ENMT Mouth: + dentures and + edentulous; no TMJ abnormality and no dentition abnormality Thyromental Distance: > or= 3.5 Finger Breadths Mallampati Class: II Neck neck extension not limited Respiratory normal respiratory effort; no respiratory distress Auscultation: lungs clear to auscultation bilaterally Cardiovascular Rate/Rhythm: regular rate and regular rhythm Neurologic moves all extremities Psychiatric Orientation: alert and oriented x 3 Testing Laboratory Results 04/08/21 07:04 04/08/21 07:04 PT 9.6 Seconds (9.0-12.0) 04/06/21 18:43 INR 0.9 (0.9-1.1) 04/06/21 18:43 APTT 23.1 Seconds (21.0-31.0) 04/06/21 18:43 Urine Color Yellow 04/06/21 20:36 Urine Appearance Clear (Clear) 04/06/21 20:36 Urine pH 6.0 (4.5-7.5) 04/06/21 20:36 Ur Specific [place] 1.010 (1.000-1.030) 04/06/21 20:36 Urine Protein 2+ (Negative) H 04/06/21 20:36 Urine Glucose (UA) Negative (Negative) 04/06/21 20:36 Urine Ketones Negative (Negative) 04/06/21 20:36 Urine Nitrite Negative (Negative) 04/06/21 20:36 Ur Leukocyte Esterase Negative (Negative) 04/06/21 20:36 Urine WBC (Auto) 1-5 /hpf (0-5) 04/06/21 20:36 Urine RBC (Auto) 0-4 /hpf (0-4) 04/06/21 20:36 U Hyaline Cast (Auto) 1-5 /lpf (0-5) 04/06/21 20:36 U Epithel Cells (Auto) >30 /lpf (0-5) H 04/06/21 20:36 Urine Bacteria (Auto) Negative (Negative) 04/06/21 20:36 Blood Type O Positive 04/06/21 18:43 Antibody Screen NEGATIVE 04/06/21 18:43
--- NOTE | 2021-04-08 15:49 | Hospitalist Progress Note ---
Date of Service April 08, 2021 Assessment & Plan (1) Acute upper gastrointestinal bleeding: Plan: Acute blood loss anemia in setting of suspected GI bleeding GI bleeding in the setting of suspected AVMs as was seen in previous EGDs History of recurrent upper GI blood loss Admitted with another episode of diarrhea associated with black stool Appreciate GI input and recommendation Has been on Protonix drip Hemoglobin remains stable at 7.9 and will have EGD this afternoon 04/08/2021 (2) Complaint of melena: Plan: Has had diarrhea and noted to have black stool Hemoglobin is dropped from 9.3-7.9 Patient remains hemodynamically stable (3) Chronic kidney disease, stage 4 (severe): Plan: Has stage IV chronic kidney disease with a creatinine of 3.46 as of 04/07/2021 and seems to be stable Her creatinine remains stable at 3.20 (4) Weakness: Plan: Generalized weakness multifactorial Chronic kidney disease, dehydration and anemia Will need PT and OT evaluation (5) GERD (gastroesophageal reflux disease): Plan: On PPI Has epigastric discomfort DVT prophylaxis SCDs due to GI bleed CODE STATUS Full Admission and Anticipated Discharge Date Admission Date: April 06, 2021 Subjective 04/07/2021 The patient was seen and examined in medical telemetry unit She was admitted yesterday with another episode of upper GI bleed with diarrhea and melena Complains to have some abdominal discomfort in the epigastrium Denies any nausea and or vomiting 04/08/2021 The patient was seen and examined in medical telemetry unit She remains weak and tired and n.p.o. for possible EGD this afternoon Denies any other significant symptoms Review of Systems Review of Systems: All systems reviewed and are unremarkable except as noted below Gastrointestinal: Minimal epigastric discomfort Physical Exam Physical Exam: Lying in bed comfortably Constitutional: well developed, well nourished, + ill appearing and + obese Eyes: PERRL, conjunctivae normal, anicteric sclerae ENMT: external ear and nose normal, oropharynx normal Neck: trachea midline, no thyromegaly Respiratory: no respiratory distress and no cough Auscultation: lungs clear to auscultation bilaterally Cardiovascular: Rate/Rhythm: regular rate and regular rhythm; not tachycardic Heart Sounds: normal S1 and normal S2; no murmur Extremities: + edema (Trace edema bilaterally) Gastrointestinal (Abdomen): Inspection/Auscultation: normal bowel sounds; abdomen not distended Percussion/Palpation: + abdomen tender (Minimally tender in the epigastrium without any guarding and no rigidity) and abdomen soft Neurologic: patellar DTR's 2+ bilat, sensation intact Psychiatric: A+Ox3, euthymic affect Lymphatic: no cervical or axillary lymphadenopathy Results & Data Results & Data ([facility]) Vital Signs (Past 12 Hours) Vital Signs Temp Pulse Pulse Resp BP Pulse Ox 04/08/21 14:52 36.6 C 87 18 167/63 H 95 04/08/21 14:41 36.8 C 60 16 179/55 H 100 04/08/21 11:12 36.8 C 58 L 16 150/54 H 94 04/08/21 08:00 67 04/08/21 07:20 36.8 C 65 20 165/61 H 94 Laboratory Results Short CBC 04/08/21 Range/Units 07:04 WBC 6.47 (4.8-10.8) K/uL Hgb 7.9 L (12.0-16.0) g/dL Hct 25.0 L (37-47) % Plt Count 257 (130-400) K/uL [facility] 04/08/21 07:04 Sodium 139 Potassium 3.2 L Chloride 107 Carbon Dioxide 24 BUN 55 H Creatinine 3.20 H Glucose 99 Calcium 8.8 Medications Administered Current Inpatient Medications Acetaminophen (Acetaminophen 325 Mg Tab) 650 mg PO Q4H PRN PRN Reason: Pain or Fever Stop: 05/06/21 23:49 Albuterol (Albuterol Hfa 8 Gm Inhaler) 2 puffs INH DAILY PRN PRN Reason: Shortness Of Breath Or Wheezin Stop: 05/06/21 23:49 Amlodipine Besylate (Amlodipine Besylate 5 Mg Tab) 10 mg PO QAM [facility] Stop: 05/07/21 08:59 Last Admin: 04/08/21 08:50 Dose: 10 mg Documented by: Ascorbic Acid (Ascorbic Acid 500 Mg Tab) 500 mg PO QAM [facility] Stop: 05/07/21 08:59 Last Admin: 04/08/21 08:50 Dose: 500 mg Documented by: Atorvastatin Calcium (Atorvastatin 40 Mg Tab) 40 mg PO QPM [facility] Stop: 05/07/21 20:59 Last Admin: 04/07/21 21:19 Dose: 40 mg Documented by: Carvedilol (Carvedilol 3.125 Mg Tab) 3.125 mg PO BID [facility] Stop: 05/07/21 08:59 Last Admin: 04/08/21 08:51 Dose: 3.125 mg Documented by: Ferrous Sulfate (Ferrous Sulfate 325 Mg Tab) 325 mg PO BID [facility] Stop: 05/07/21 08:59 Last Admin: 04/08/21 08:51 Dose: 325 mg Documented by: Furosemide (Furosemide 20 Mg Tab) 20 mg PO QAM [facility] Stop: 05/07/21 08:59 Last Admin: 04/08/21 08:52 Dose: 20 mg Documented by: Hydralazine HCl (Hydralazine Tab 50 Mg Tab) 100 mg PO BID [facility] Stop: 05/07/21 08:59 Last Admin: 04/08/21 08:49 Dose: 100 mg Documented by: Hydrochlorothiazide (Hydrochlorothiazide 25 Mg Tab) 50 mg PO QAM [facility] Stop: 05/07/21 08:59 Last Admin: 04/08/21 08:52 Dose: 50 mg Documented by: Dextrose/Sodium Chloride (D5w And Nss) 1,000 mls @ 50 mls/hr IV .Q20H [facility] Stop: 05/06/21 23:49 Last Infusion: 04/08/21 14:47 Dose: 0 mls/hr Documented by: Pantoprazole Sodium 40 mg/ (Dextrose) 100 mls @ 20 mls/hr IV Q5H [facility] Stop: 05/07/21 07:14 Last Infusion: 04/08/21 14:48 Dose: 0 mg/hr, 0 mls/hr Documented by: Multivitamins (Multivitamin Tab) 1 tab PO DAILY [facility] Stop: 05/07/21 08:59 Last Admin: 04/08/21 08:51 Dose: 1 tab Documented by: Multivitamins/Minerals (Calcium 600mg + Vit D 400 Iu Tab) 1 tab PO QAM [facility] Stop: 05/07/21 08:59 Last Admin: 04/08/21 08:50 Dose: 1 tab Documented by: Nitroglycerin (Nitroglycerin Sl 0.4 Mg/Tab Tab) 0.4 mg SL UD PRN PRN Reason: Chest Pain Stop: 05/06/21 23:49 Ondansetron HCl (Ondansetron Inj 2 Mg/Ml 2 Ml Vial) 4 mg IV Q6H PRN PRN Reason: Nausea Stop: 05/06/21 23:49 Pantoprazole Sodium (Pantoprazole 40 Mg Tab) 40 mg PO BID [facility] Stop: 05/06/21 23:49 Last Admin: 04/07/21 01:08 Dose: 40 mg Documented by: Trazodone HCl (Trazodone Hcl 50 Mg Tab) 25 mg PO HS PRN PRN Reason: Sleep Stop: 05/06/21 23:49 Vitamin B Complex (Vitamin B Complex Tab) [facility] Stop: 05/07/21 08:59 Last Admin: 04/08/21 08:52 Dose: 1 tab Documented by:
[2021-04-08] MEDS ORDERED: LIDOCAINE 2% 2 ML VIAL/AMP(20MG/ML) INFIL ONE (16:29)
[2021-04-08] MEDS ORDERED: PROPOFOL IV EMULSION 10 MG/ML 20 ML VIAL IV ONE (16:29)
[2021-04-08] MEDS ORDERED: ONDANSETRON INJ 2 MG/ML 2 ML VIAL ONE (16:29)
--- NOTE | 2021-04-08 16:35 | Post Operative Brief Note ---
Immediate Post Op Note v1 Date of Surgery April 08, 2021 Pre & Post Diagnosis Operation Date: 04/08/21 16:30 Pre-Op Diagnosis: Anemia Post-Op Diagnosis: hiatal hernia, nodular duodenitis, AVMs I identified the patient and participated in the time-out.: Yes Procedure Operation Date: 04/08/21 16:30 Actual Procedures p Small Bowel Enteroscopy BX/CYT - Raz Pathak MD Surgeon Raz Pathak MD Oil Rigger none Estimated Blood Loss 1 Findings See Below 3 cm sliding type hiatal hernia observed. 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 Nodular duodenopathy detected at the junction of the bulb and descending duodenum, with friability and oozing of fresh blood, multiple biopsies obtained. This may be the source of chronic GI bleeding in this case. Complications none
--- NOTE | 2021-04-08 16:40 | Anesthesiology Progress Note ---
Date of Service April 08, 2021 Anesthesia Post Procedure Vital Signs Vital Signs: Temp Pulse Pulse Resp BP Pulse Ox 04/08/21 16:00 63 04/08/21 14:52 36.6 C 87 18 167/63 H 95 04/08/21 14:41 36.8 C 60 16 179/55 H 100 04/08/21 11:12 36.8 C 58 L 16 150/54 H 94 04/08/21 08:00 67 04/08/21 07:20 36.8 C 65 20 165/61 H 94 04/08/21 03:44 37 C 61 16 158/63 H 97 04/08/21 01:36 70 04/07/21 23:21 37.4 C 65 18 157/50 H 97 04/07/21 19:02 36.8 C 68 20 152/60 H 98 Pain Intensity Abdomen: Pain Intensity: 2 Transfer of Care Handoff Completed per policy Notes Mental Status: alert / awake / arousable and participated in evaluation Patient Amnestic to Procedure: Yes Nausea / Vomiting: adequately controlled Pain: adequately controlled Airway Patency, RR, SpO2: stable & adequate BP & HR: stable & adequate Hydration State: stable & adequate Anesthetic Complications: no major complications apparent and Pt Satisfied with anesthetic care
--- NOTE | 2021-04-08 16:49 | GI REPORT ---
Patient Name: Toña Chapin Procedure Date: 04/08/2021 3:02 PM Date of : 1945 Admit Type: Inpatient Age: 76 Gender: Female Attending MD: Raz Pathak MD Procedure: Small bowel enteroscopy Providers: Raz Pathak MD Referring MD: Referred Self Indications: Obscure gastrointestinal bleeding Medicines: Monitored Anesthesia Care Complications: No immediate complications. Estimated Blood Loss: Estimated blood loss was minimal. Procedure: Pre-Anesthesia Assessment: - Prior to the procedure, a History and Physical was performed, and patient medications and allergies were reviewed. The patient is competent. The risks and benefits of the procedure and the sedation options and risks were discussed with the patient. All questions were answered and informed consent was obtained. Patient identification and proposed procedure were verified by the physician and the nurse in the pre-procedure area. Mental Status Examination: alert and oriented. Airway Examination: normal oropharyngeal airway and neck mobility. Respiratory Examination: clear to auscultation. CV Examination: regular rate and rhythm. Prophylactic Antibiotics: The patient does not require prophylactic antibiotics. Prior Anticoagulants: The patient has taken no previous anticoagulant or antiplatelet agents except for aspirin. ASA Grade Assessment: III - A patient with severe systemic disease. After reviewing the risks and benefits, the patient was deemed in satisfactory condition to undergo the procedure. The anesthesia plan was to use monitored anesthesia care (MAC). Immediately prior to administration of medications, the patient was re-assessed for adequacy to receive sedatives. The heart rate, respiratory rate, oxygen saturations, blood pressure, adequacy of pulmonary ventilation, and response to care were monitored throughout the procedure. The physical status of the patient was re-assessed after the procedure. After obtaining informed consent, the endoscope was passed under direct vision. Throughout the procedure, the patient's blood pressure, pulse, and oxygen saturations were monitored continuously. The Colonoscope was introduced through the mouth and advanced to the proximal jejunum. The small bowel enteroscopy was accomplished without difficulty. The patient tolerated the procedure fairly well. Findings: The Z-line was regular and was found 40 cm from the incisors. A 3 cm hiatal hernia was present. No gross lesions were noted in the entire examined stomach. Multiple angioectasias with no bleeding were found in the proximal jejunum. Localized nodular mucosa was found in the proximal descending duodenum at the junction of bulb and 2nd portion. The nodules were friable with slight oozing of fresh blood. Biopsies were taken with a cold forceps for histology. Verification of patient identification for the specimen was done by the physician and nurse using the patient's name and medical record number. Estimated blood loss was minimal. Impression: - Z-line regular, 40 cm from the incisors. - 3 cm hiatal hernia. - No gross lesions in the stomach. - Multiple non-bleeding angioectasias in the jejunum. - Nodular mucosa in the proximal descending duodenum, with friability and oozing of fresh blood. Biopsied. Recommendation: - [facility] for [facility] care. MD Raz Hinojosa MD 04/08/2021 4:49:21 PM This report has been signed electronically. Note Initiated On: 04/08/2021 3:02 PM Number of Addenda: 0 I attest to the content of the Intraoperative Record and orders documented therein, exceptions below {[id number]}
[2021-04-08] MEDS: D5W AND NSS 1,000 ML IV SCH (20:13)
[2021-04-08] MEDS: ATORVASTATIN 40 MG TAB PO SCH (20:50)
[2021-04-09] MEDS: PANTOprazole 40 MG in DEXTROSE 5% 100 ML IV SCH ×4 (01:50→13:45)
[2021-04-09 08:16] LABS: Basophils # (auto) 0.01 K/uL (0-0.2); Basophils % (auto) 0.1 %; Eosinophils # (auto) 0.12 K/uL (0-0.5); Eosinophils % (auto) 1.8 %; Hematocrit (blood only) 24.3 % (37-47); Hemoglobin 7.8 g/dL (12.0-16.0); Immature Granulocytes # (auto) 0.01 K/uL (0.00-0.02); Immature Granulocytes % (auto) 0.1 %; Lymphocytes # (auto) 1.52 K/uL (1.2-3.4); Lymphocytes % (auto) 22.3 %; Mean Corpuscular Hemoglobin 28.5 pg (25-34); Mean Corpuscular Hgb Conc 32.1 g/dL (32-36); Mean Corpuscular Volume 88.7 fL (80-100); Mean Platelet Volume 9.1 fL (7.4-10.4); Monocytes # (auto) 0.42 K/uL (0.11-0.59); Monocytes % (auto) 6.2 %; Neutrophils # (auto) 4.73 K/uL (1.4-6.5); Neutrophils % (auto) 69.5 %; Platelet Count 253 K/uL (130-400); RDW Coefficient of Variation 17.2 % (11.5-14.5); RDW Standard Deviation 56.3 fL (36.4-46.3); Red Blood Count 2.74 M/uL (4.2-5.4); White Blood Count 6.81 K/uL (4.8-10.8)
[2021-04-09 09:04] LABS: BUN Creatinine Ratio 14.1 (10-20); Calcium 8.6 mg/dl (8.5-10.1); Creatinine Clr Calc Pharmacy 15.9 ml/min; Est GFR (African American) 14.2 ml/min; Est GFR (Non-African American) 12.2 ml/min; Potassium 3.9 mmol/L (3.5-5.1)
--- NOTE | 2021-04-09 09:31 | Gastroenterology Progress Note ---
Date of Service April 09, 2021 Assessment & Plan (1) Acute upper gastrointestinal bleeding: Plan: Patient with small bowel endoscopy performed 04/08/2021 demonstrated no gross lesions in the entire stomach; multiple angio ectasias with no bleeding found in the proximal jejunum; a localized nodular mucosa found in the proximal descending duodenum at the junction of the bulb and second portion. Nodules were friable with slight oozing of fresh blood. Biopsies were obtained. She will need close outpatient GI follow-up and we have an appointment set up her for Wednesday this week. Plan is for outpatient capsule endoscopy which we will arrange. She is hopeful for discharge today. Please refer to supervising physician addendum for further recommendations. Admission and Anticipated Discharge Date Admission Date: April 06, 2021 Supervising Physician Co-Signing Physician Notes The case was discussed with Kathi ENGEL and I agree with the plan of care as outlined in this progress note. The patient was not directly interviewed or examined by me as she was discharged from the hospital prior to my daily rounds. Subjective Patient awake, alert, and oriented this morning. She reports no specific complaints this morning. Denies any nausea or vomiting. She has not had a bowel movement since admission. She is having some upper abdominal discomfort but only with palpation and this is over her lower sternum. Denies any specific abdominal pain this morning. Is hopeful for discharge today and has an appointment with the CCP today for outpatient injection. Review of Systems Review of Systems: All systems reviewed & are unremarkable except as noted in Subjective Physical Exam Constitutional: WD/WN, vitals as above + ill appearing (chronically) Respiratory: normal respiratory effort, lungs clear to auscultation Cardiovascular: RRR, no murmur, no edema Gastrointestinal (Abdomen): Inspection/Auscultation: abdomen normal to inspection and normal bowel sounds; abdomen not distended Percussion/Palpation: abdomen soft; no guarding and abdomen not rigid Psychiatric: A+Ox3, euthymic affect Results & Data ([facility]) Vital Signs (Past 12 Hours) Vital Signs Temp Pulse Pulse Resp BP Pulse Ox 04/09/21 09:01 36.7 C 65 18 155/53 H 95 04/09/21 07:32 58 L 04/09/21 04:55 36.8 C 63 18 135/63 95 04/08/21 23:57 63 04/08/21 22:42 36.7 C 59 L 18 150/66 H 93 Laboratory Results Laboratory Results - last 24 hr 04/09/21 04/09/21 07:56 07:56 WBC 6.81 RBC 2.74 L Hgb 7.8 L Hct 24.3 L MCV 88.7 MCH 28.5 MCHC 32.1 RDW Std Deviation 56.3 H RDW Coeff of Kris 17.2 H Plt Count 253 MPV 9.1 Immature Gran % (Auto) 0.1 Neut % (Auto) 69.5 Lymph % (Auto) 22.3 [place] % (Auto) 6.2 Eos % (Auto) 1.8 Baso % (Auto) 0.1 Neut # (Auto) 4.73 Lymph # (Auto) 1.52 [place] # (Auto) 0.42 Eos # (Auto) 0.12 Baso # (Auto) 0.01 Immature Gran # (Auto) 0.01 Sodium 140 Potassium 3.9 D Chloride 106 Carbon Dioxide 23 Anion Gap 11.0 BUN 49 H Creatinine 3.45 H Est Cr Clr Drug Dosing 15.9 Est GFR ( Amer) 14.2 Est GFR (Non-Af Amer) 12.2 BUN/Creatinine Ratio 14.1 Glucose 96 Calcium 8.6 Diagnostic Findings 04/08/2021: Small bowel endoscopy demonstrated Z-line regular for 40 cm from the incisors; 3 cm hiatal hernia; no gross lesions in the entire stomach; multiple angio ectasias with no bleeding found in the proximal jejunum; a localized nodular mucosa found in the proximal descending duodenum at the junction of the bulb and second portion. Nodules were friable with slight oozing of fresh blood. Biopsies were obtained.
[2021-04-09] MEDS: VITAMIN B COMPLEX TAB PO SCH (09:49)
[2021-04-09] MEDS: CALCIUM 600MG + VIT D 400 IU TAB PO SCH (09:49)
[2021-04-09] MEDS: carvediloL 3.125 MG TAB PO SCH (09:49)
[2021-04-09] MEDS: FERROUS SULFATE 325 MG TAB PO SCH (09:50)
[2021-04-09] MEDS: ASCORBIC ACID 500 MG TAB PO SCH (09:50)
[2021-04-09] MEDS: hydrALAZINE TAB 50 MG TAB PO SCH (09:50)
[2021-04-09] MEDS: amLODIPine BESYLATE 5 MG TAB PO SCH (09:50)
[2021-04-09] MEDS: MULTIVITAMIN TAB PO SCH (09:50)
[2021-04-09] MEDS: FUROSEMIDE 20 MG TAB PO SCH (09:50)
[2021-04-09] MEDS: hydroCHLOROthiazide 25 MG TAB PO SCH (09:50)
[2021-04-09] MEDS: D5W AND NSS 1,000 ML IV SCH (13:45)
--- NOTE | 2021-04-09 20:33 | Discharge Summary ---
Date of Service April 09, 2021 Admission HPI Per Admitting Provider CHIEF COMPLAINT: Weakness. HISTORY OF PRESENT ILLNESS: This is a 76-year-old female with past medical history significant for COPD, specific carotid stenosis, hypertension, carotid artery stenosis, status post left carotid endarterectomy, GERD, chronic kidney disease stage IV, chronic anemia, who was recently admitted to [facility] on 03/13/2021 to 03/16/2021 for symptomatic anemia due to upper GI bleeding from AVM, that required cauterization and was discharged and she was readmitted on 03/30/2021 with some lightheadedness and was evaluated GI and her hemoglobin was 8.4 at that time and status post small bowel endoscopy on 03/31/2021 due to history of jejunal AVMs and melena. Several nonbleeding AVMs were identified, treated with APC and did fine. At that time, the patient was found to have a friable gastric mucosa and after the procedure, she did fine and she was tolerating diet and she was discharged home. The patient states again last night she had diarrhea three episodes and it was black and the last episode of diarrhea was at 1:00 in the morning and after that she felt weakness in the legs. Whenever she was walking, her legs giving away and she also feeling heavy and weak in her upper extremities and lower extremities that is why she came here. Currently, resting comfortably and hemodynamically stable. Labs showed hemoglobin of 9.3, which is stable from discharge, on 04/03/2021 it was 9.5. Denies any headache, no dizziness, no blurred visions, no earache, no runny nose, no sore throat. No cough. Appetite is okay. No difficulty swallowing. No chest pain or shortness of breath, no nausea. She has some mild left lower abdominal discomfort, no rash currently. ALLERGIES: BACTRIM, GABAPENTIN, CODEINE, DILAUDID, MORPHINE, PERCOCET. PAST MEDICAL HISTORY: As mentioned above. PAST SURGICAL HISTORY: EGDs, small bowel enteroscopy, carpal tunnel surgery, cataract, cholecystectomy, back surgeries, rotator cuff repair. MEDICATIONS: The patient is currently on albuterol 2 puffs inhalation q.i.d. p.r.n., amlodipine 10 mg p.o. a.m., vitamin C 500 mg p.o. a.m., aspirin 81 mg p.o. a.m., atorvastatin 40 mg p.o. a.m., vitamin B complex 1 tablet p.o. a.m., calcium plus vitamin D 1 capsule p.o. a.m., Coreg 3.125 mg p.o. b.i.d., Dexilant 60 mg p.o. a.m., ferrous sulfate 325 mg p.o. b.i.d., furosemide 20 mg p.o. a.m., hydralazine 100 mg p.o. b.i.d., hydrochlorothiazide 50 mg p.o. a.m., multivitamin 1 tablet p.o. daily, nitroglycerin 0.4 mg sublingual p.r.n., Protonix 40 mg p.o. b.i.d., trazodone 25 mg p.o. at bedtime p.r.n. FAMILY HISTORY: Significant for brother has diabetes, hypertension; mother has stroke, diabetes; sister has diabetes. Son has ulcerative colitis. SOCIAL HISTORY: . Smoked 1 pack a day 50 years ago. No alcohol, rarely consumes wine. No drug use. Lives alone. Family is close by. REVIEW OF SYSTEMS: As per HPI. Rest of review of systems is negative. Admission Exam Per Admitting Provider GENERAL: The patient is obese, not in acute distress. VITAL SIGNS: Temperature 36.6, pulse 83, respiratory rate 18, blood pressure 183/60, oxygen 97% on room air. HEENT: Pupils equal, round and reactive to light. Oral mucosa moist. NECK: No JVD. No neck mass. HEART: S1 and S2 heard. Ejection systolic murmur heard. Regular rate and rhythm. RESPIRATORY SYSTEM: Normal AP diameter. No accessory muscle use. No wheezing, no crackles. ABDOMEN: Soft, bowel sounds present, nontender, no distention. CENTRAL NERVOUS SYSTEM: Cranial nerves II-XII grossly intact. Power 5/5 in all extremities. Sensation is intact. No facial droop. Speech is clear. EXTREMITIES: No edema, no erythema seen. Principal Diagnosis Acute upper GI bleed. Discharge Exam GENERAL: Alert and oriented x3. NAD, on RA. HEENT: No pallor, no icterus. Pupils equal, round and reactive to light. Oral mucosa moist. NECK: No JVD, no neck masses. HEART: S1 and S2 heard. Regular rate and rhythm. Systolic murmur over aortic and pulmonic area, no gallop. RESPIRATORY SYSTEM: Normal AP diameter. No accessory muscle use. No wheezing, no crackles. ABDOMEN: Soft, bowel sounds present, nontender, no distention. CENTRAL NERVOUS SYSTEM: Alert and oriented x3. No facial droop. Speech is clear. Obeys simple commands. Moves extremities. EXTREMITIES: No edema, no erythema seen. Discharge Data Allergies Allergy/AdvReac Type Severity Reaction Status Date / Time Bactrim Allergy Severe ELEVATED Verified 08/15/13 14:34 POTASSIUM, BRADYCARDIC "HEART TRIED TO SHUT DOWN" sulfamethoxazole Allergy Severe ELEVATED Verified 04/06/21 18:54 POTASSIUM, BRADYCARDIC "HEART TRIED TO SHUT DOWN" trimethoprim Allergy Severe ELEVATED Verified 04/06/21 18:54 POTASSIUM, BRADYCARDIC "HEART TRIED TO SHUT DOWN" gabapentin Allergy Intermediate HALLUCINATIONS; Verified 04/06/21 18:54 SCREAMING/YELLING codeine Allergy Mild RASH, Verified 04/06/21 18:54 RAPID HEART BEAT hydromorphone [From Dilaudid] AdvReac Mild Hallucinati Verified 04/06/21 18:54 ng morphine AdvReac Unknown Unknown Verified 04/06/21 18:54 oxycodone [From Percocet] AdvReac Unknown Unknown Verified 04/06/21 18:54 Consultations 04/06/21 21:44 ED Decision to Admit Stat 04/07/21 08:00 Consult Gastroenterology Routine Procedures Performed Operation Date: 04/08/21 16:30 Actual Procedures p Small Bowel Enteroscopy BX/CYT - Raz Pathak MD Ordered Studies 04/06/21 19:04 CT abd pelvis wo con Stat Hospital Course (1) Acute upper gastrointestinal bleedin-year-old female with past medical history significant for COPD, specific carotid stenosis, hypertension, carotid artery stenosis, status post left carotid endarterectomy, GERD, chronic kidney disease stage IV, chronic anemia, who was recently admitted to [facility] on 03/13/2021 to 03/16/2021 for symptomatic anemia due to upper GI bleeding from AVM, that required cauterization and was discharged and she was readmitted on 03/30/2021 with some lightheadedness and was evaluated GI and her hemoglobin was 8.4 at that time and status post small bowel endoscopy on 03/31/2021 due to history of jejunal AVMs and melena. Several nonbleeding AVMs were identified, treated with APC and did fine and she was tolerating diet and she was tolerating diet and she was discharged home. The patient states again she had diarrhea three episodes and it was black and presented to our ED 04/06 associated with leg weakness and feeling dizzy. She was managed for the following while inpatient: 1. Acute upper gastrointestinal bleeding: Acute blood loss anemia in setting of suspected GI bleeding GI bleeding in the setting of suspected AVMs as was seen in previous EGDs History of recurrent upper GI blood loss Admitted with another episode of diarrhea associated with black stool Appreciate GI input and recommendation Has been on Protonix drip --> transitioned to PO PPI. Hemoglobin remains stable at 7.9 s/p EGD, plan for capsule endoscopy, f/u visit with GI on Wednesday scheduled (2) Complaint of melena: Has had diarrhea and noted to have black stool Hemoglobin is dropped from 9.3-7.9, remained stable there. Patient remains hemodynamically stable (3) Chronic kidney disease, stage 4 (severe): Has stage IV chronic kidney disease with a creatinine of 3.46 as of 04/07/2021 and seems to be stable Her creatinine remains stable around baseline (4) Weakness: Generalized weakness multifactorial Chronic kidney disease, dehydration and anemia OT evaluated- home with support. (5) GERD (gastroesophageal reflux disease): On PPI Improved epigastric discomfort. DVT prophylaxis SCDs due to GI bleed CODE STATUS Full Patient was discharged with following instruction at the point of visit: Follow-up with your primary care physician within a week time. Get your blood work [CBC] done on Wednesday to check on your hemoglobin level. Have your results forwarded to your PCP or your GI doctor. Follow-up with your scheduled gastroenterology visit on Wednesday for plan to schedule capsule endoscopy as an outpatient. Take medications as prescribed. Avoid NSAIDs, hold aspirin for now until instructed by your primary care physician or your GI doctor otherwise. Take your pantoprazole as prescribed. Total Time Total Time Spent Total Time Spent (In Minutes): 45 Discharge Plan Discharge Items Patient Disposition: Home - Self-Care Reason For Visit: WEAKNESS Discharge Diagnosis: Acute upper GI bleed. Activity: Resume your previous activity Non-emergency contact: Primary Care Provider Call non-emergency contact if: you have any medication questions and your symptoms worsen Follow-up/Referrals: Gabbie Hunter PA-C [Primary Care Provider] - (Date & Time 04/14/2021 9:00 AM Provider Jessica Salgado PA-C Department [facility] ) Diet: Heart Healthy Addtl Attending Provider Instructions: Follow-up with your primary care physician within a week time. Get your blood work [CBC] done on Wednesday to check on your hemoglobin level. Have your results forwarded to your PCP or your GI doctor. Follow-up with your scheduled gastroenterology visit on Wednesday for plan to schedule capsule endoscopy as an outpatient. Take medications as prescribed. Avoid NSAIDs, hold aspirin for now until instructed by your primary care physician or your GI doctor otherwise. Take your pantoprazole as prescribed. Pending Studies at Discharge: No Stand-Alone Forms: My [employer], Smoking Cessation Medications and DC Order Prescriptions: Continued atorvastatin 40 mg Tablet 40 mg PO QPM RF: 0 Calcium 600 + D(3) 600 mg calcium- 200 unit Capsule 1 cap PO QAM RF: 0 hydralazine 100 mg tablet 100 mg PO BID RF: 0 hydrochlorothiazide 50 mg Tablet 50 mg PO QAM RF: 0 furosemide 20 mg Tablet 20 mg PO QAM RF: 0 B-complex with vitamin C Tablet 1 tab PO QAM RF: 0 ferrous sulfate 325 mg (65 mg iron) tablet 325 mg PO BID RF: 0 albuterol sulfate 90 mcg/actuation HFA aerosol inhaler 2 puff INHALATION UD PRN (Reason: Shortness Of Breath Or Wheezing) RF: 0 Dexilant 60 mg capsule,biphase delayed releas 60 mg PO PM Qty: 30 RF: 0 amlodipine 10 mg tablet 10 mg PO QAM RF: 0 carvedilol 3.125 mg tablet 3.125 mg PO BID RF: 0 multivitamin Tablet 1 tab PO DAILY RF: 0 ascorbic acid (vitamin C) [Vitamin C] 500 mg Tablet 500 mg PO QAM RF: 0 nitroglycerin 0.4 mg tablet, sublingual 0.4 mg sublingual DIRECTED PRN (Reason: Chest Pain) RF: 0 trazodone 50 mg tablet 25 mg PO HS PRN (Reason: Sleep) RF: 0 pantoprazole 40 mg Tablet,Delayed Release (Dr/Ec) 40 mg PO BID Qty: 60 RF: 0 Discontinued aspirin 81 mg Tablet,Delayed Release (Dr/Ec) 81 mg PO QAM RF: 0 Discharge Orders: Discharge Order (Routine); Ordered 04/09/21 Ordered By: Jose Luis Jiménez Admission Data Admit Date/Time: 04/06/21 22:29 Attending Provider: Jose Luis Jiménez Admit Provider: Yayo Manriquez Primary Care Provider: Gabbie Hunter Other Providers: Yayo Manriquez ; Kathi Bland ; Edward Howe ; Anthony Sow ; Parish Smyth ; Cornelius Graham ; Raz Pathak Other Interventions: Discharge Summary Assessment (RN) Last Done: 04/09/21 15:37
--- NOTE | 2021-04-15 13:26 | Coding Query ---
5 CODING QUERY To promote full compliance with coding requirements relating to patient care, provider participation is requested in all cases of environmental health technologist uncertainty. Please assist us with the question(s) below: Coding Question(s): Pt with several prior admissions for colon AVM's admitted with melena . EGD /with biopsy of duodenal nodules. Colonic AVM's also identified as nonbleeding. DS states GI bleeding in the setting of suspected AVM's. Please document, if known or suspected , the etiology of the melena. Thanks for your help!. Yuri Schmitt [facility] Physician's Response(s): duodenitis Principal Diagnosis: "that condition established after study, to be chiefly responsible for occasioning the admission of the patient to the hospital for care." Co-Existing Principal Diagnosis: "when two or more diagnoses equally meet the criteria for principal diagnosis as determined by the circumstances of admission, diagnostic work up, and/or therapy provided, and the Alphabetic Index, Tabular List, or another coding guideline does not provide sequencing direction, any one of the diagnoses may be sequenced first." "When the physician has documented what appears to be a current diagnosis in the body of the record, but has not included the diagnosis in the final diagnostic statement, the physician should be asked whether the diagnosis should be added." (Source [facility] 2 QTR90. p3-4) [facility]
== END 2021-04-09 16:01 | disposition home or self-care (01) | DRG 378 ==
LOC: ED 17:03 → 2W 22:29 → SUATTDRO 22:29 → 2W 23:10

== ENCOUNTER 2022-10-11 22:13 | Inpatient (IN) ==
[2022-10-11 23:33] LABS: Basophils # (auto) 0.05 K/uL (0-0.2); Basophils % (auto) 0.6 %; Eosinophils # (auto) 0.17 K/uL (0-0.50); Hematocrit (blood only) 25.6 % (37.0-47.0); Hemoglobin 8.3 g/dl (12.0-16.0); Immature Granulocytes # (auto) 0.03 K/uL (0.01-0.20); Immature Granulocytes % (auto) 0.3 %; Lymphocytes # (auto) 1.19 K/uL (1.2-3.4); Lymphocytes % (auto) 13.9 %; Mean Corpuscular Hemoglobin 30.3 pg (25.0-34.0); Mean Corpuscular Hgb Conc 32.4 g/dL (32.0-36.0); Mean Corpuscular Volume 93.4 fL (80.0-100.0); Mean Platelet Volume 9.5 fL (9.4-12.4); Monocytes # (auto) 0.82 K/uL (0.11-0.59); Monocytes % (auto) 9.5 %; Neutrophils # (auto) 6.33 K/uL (1.40-6.50); Neutrophils % (auto) 73.7 %; Platelet Count 197 K/uL (130-400); RDW Coefficient of Variation 18.8 % (11.5-14.5); RDW Standard Deviation 65.2 fL (36.4-46.3); Red Blood Count 2.74 M/uL (4.20-5.40); White Blood Count 8.59 K/ul (4.8-10.8)
[2022-10-11] MEDS ORDERED: methylPREDNISolone 125 MG/2 ML VIAL IV STA (23:41)
[2022-10-11] MEDS ORDERED: ALBUT/IPRATROP 3MG/0.5MG NEB 3 ML VIAL NEB STA (23:41)
[2022-10-11] MEDS ORDERED: SUCRALFATE 1 GM/10 ML UDC PO STA (23:41)
[2022-10-11] MEDS ORDERED: FAMOTIDINE 20MG IV PUSH 20 MG/5 ML SYR IV STA (23:41)
[2022-10-12 00:43] LABS: Albumin Globulin Ratio 1.5 (0.9-2); Albumin Level 3.6 gm/dl (3.4-5.0); BUN Creatinine Ratio 17.6 (10-20); Bilirubin,Total 0.6 mg/dl (0.2-1.0); Calcium 8.4 mg/dl (8.6-10.3); Creatinine Clr Calc Pharmacy 11.2 ml/min; Est GFR (African American) 9.8 ml/min; Est GFR (Non-African American) 8.5 ml/min; Globulin 2.4 gm/dl (2.5-4.0); Phosphorus 5.4 mg/dl (2.5-4.9); Potassium 5.1 mmol/L (3.5-5.1); Troponin I High Sensitivity 15.6 pg/ml (0-14)
--- NOTE | 2022-10-12 02:39 | CT Scan Report ---
Exam(s): CT CHEST Without Contrast EXAM: CT Chest Without Intravenous Contrast CLINICAL HISTORY: Reason for exam: cp/ap, nausea, sob. TECHNIQUE: Axial computed tomography images of the chest without intravenous contrast. CTDI is 14.87 mGy and DLP is 872.77 mGy-cm. Automated exposure control was utilized for the study. A dose lowering technique was utilized adhering to the principles of ALARA. COMPARISON: None. FINDINGS: Lungs: Right lower lobe consolidation suggestive of pneumonia. Left posterior lower lobe atelectasis with mild subpleural consolidation, cannot exclude residual infiltrate. Possible mild emphysematous changes at the lung apices. Pleural space: Mild right-sided pleural effusion. Trace left-sided pleural effusion. No pneumothorax. Heart: Borderline cardiomegaly with coronary artery calcifications. No significant pericardial effusion. Bones/joints: Advanced degenerative disease of the spine, more severe through the upper lumbar spine and thoracolumbar junction. No acute fracture. No dislocation. Soft tissues: Unremarkable. Vasculature: Unremarkable. No thoracic aortic aneurysm. Lymph nodes: Unremarkable. No enlarged lymph nodes. Gallbladder and bile ducts: Upper abdomen reveals status post cholecystectomy otherwise unremarkable biliary system. IMPRESSION: 1. Bilateral mild pleural effusions, right larger than left. 2. Bilateral lower lobe consolidation with subpleural interstitial and groundglass density suggestive of bilateral lower lobe pneumonia, right more significant compared to the left. Electronically signed by: Viky Trejo MD 10/12/22 02:38 AM
--- NOTE | 2022-10-12 02:44 | CT Scan Report ---
Exam(s): CT ABDOMEN + PELVIS Without Contrast EXAM: CT Abdomen and Pelvis Without Intravenous Contrast CLINICAL HISTORY: Reason for exam: cp/ap, nausea, sob. TECHNIQUE: Axial computed tomography images of the abdomen and pelvis without intravenous contrast. CTDI is 18.66 mGy and DLP is 872.77 mGy-cm. Automated exposure control was utilized for the study. A dose lowering technique was utilized adhering to the principles of ALARA. COMPARISON: 04/06/2021. FINDINGS: Lung bases: Bilateral lower lobe consolidation, more significant on the right and compatible with infiltrates. Pleural space: Mild bilateral pleural effusions, right larger than left. Heart: Mild cardiomegaly with coronary artery calcific. ABDOMEN: Liver: Unremarkable. Gallbladder and bile ducts: Status post cholecystectomy otherwise unremarkable biliary system. No ductal dilation. Pancreas: Mild stranding surrounding the pancreas, cannot exclude pancreatitis. No ductal dilation. Spleen: Unremarkable. No splenomegaly. Adrenals: Unremarkable. No mass. Kidneys and ureters: Right lower renal pole low-attenuation structure, stable in the interval measuring 1.8 cm and compatible with simple renal cyst. Multiple calcifications within the right kidney, largest measuring 2.6 mm suggestive of stones versus vascular etiology. Otherwise unremarkable right kidney with no hydronephrosis. Calcifications within the left kidney, largest measuring 6 mm suggestive of stones versus vascular etiology. Left lower renal pole low-attenuation structure measuring 1.4 cm, stable in the interval and most compatible with simple cyst. Otherwise normal left kidney. Stomach and bowel: Increased fecal debris within the colon more severe distally and within the sigmoid suggestive of constipation. No obstruction. No mucosal thickening. PELVIS: Appendix: Normal appendix. Bladder: Unremarkable. No stones. Reproductive: Anteverted uterus. ABDOMEN and PELVIS: Intraperitoneal space: Unremarkable. No free air. No significant fluid collection. Bones/joints: Advanced degenerative disease of the spine with multilevel vacuum phenomenon. Scoliosis of the lumbar spine with convexity to the right. No acute fracture. No dislocation. Soft tissues: Unremarkable. Vasculature: Atherosclerotic disease of aorta with tortuosity. No aneurysm. Lymph nodes: Unremarkable. No enlarged lymph nodes. IMPRESSION: 1. Constipation. No acute appendicitis or bowel obstruction. 2. Status post cholecystectomy. Bilateral simple renal cysts as described, stable in the interval and likely benign. No further imaging follow-up recommended unless warranted by clinical presentation. 3. Cannot exclude pancreatitis, correlation with amylase and lipase recommended. 4. Bilateral pleural effusions with bilateral lower lobe consolidation suggestive of residual infiltrates. Clinical correlation recommended. Electronically signed by: Viky Trejo MD 10/12/22 02:43 AM
[2022-10-12] MEDS ORDERED: AZITHROMYCIN 500 MG in DEXTROSE 5% 250 ML IV STA (03:21)
[2022-10-12] MEDS ORDERED: AMPICILLIN/SULBACTAM SOD 3,000 MG in 0.9 % SODIUM CHLORIDE 100 ML IV STA (03:21)
--- NOTE | 2022-10-12 03:26 | Emergency Department Note ---
Impression & Plan Pneumonia, COPD exacerbation, Constipation, Shortness of breath at rest ED Provider Note NAME: FELI JAUREGUI AGE: 77 SEX: F ARRIVES VIA: Walk-In INFORMANT: Patient ED PROVIDER(S): Quintin Morataya MD CHIEF COMPLAINT: SOB, abdominal pain. PLAN: Disposition: Admit MEDICAL DECISION MAKING: The patient is a pleasant 77-year-old woman with a past medical history of CKD, COPD, GERD, hypertension, hyperlipidemia, hypothyroidism who presents to the emergency department via walk-in, comedy by her daughter for ongoing upper abdominal/lower chest pain with associated shortness of breath over the past several days being seen at [facility] for similar symptoms where she had x-rays performed that demonstrated constipation and blood work that was at her baseline. She reports feeling as though there is a pressure in her upper abdomen/lower chest which makes it difficult to breathe. She reports that she has been wheezing and coughing more. She reports they did give her a nebulizer treatment at [place] 2 days ago. On arrival the patient is uncomfortable in no distress, afebrile with blood pressure 170s/70s and vital signs otherwise stable. O2 saturation is in the low 90s on room air though the patient appears dyspneic and so was given O2 via valeri al cannula for comfort. Breathing did improve following administration of DuoNeb and treatment with steroids. EKG without overt acute ischemia. WBC within normal limits. H/H similar to prior values. Platelets within normal limits. Chemistry with bicarbonate of 18 in setting of the patient's CKD with creatinine of 4.6, proximal to prior range of values. BUN is elevated at 82 from her baseline of 50-60. LFTs without significant abnormality. High- sensitivity troponin 50.6, nonspecific. Procalcitonin is not elevated. COVID- 19 RNA, SHELLIE test was negative. CT of the chest and abdomen pelvis performed. CT was notable for bilateral pleural effusions with basilar consolidation suspicious for pneumonia. Additional note was made of constipation. Upon reevaluation patient did report feeling some improvement however still with shortness of breath and pain. They did agree with and prefer plan for admission for further management. Curb 65 moderate risk considering increased BUN from b aseline. Blood cultures were drawn and patient was treated with Unasyn for possible component of aspiration and azithromycin for atypical coverage. Case was discussed with VIRGEN Byrd hospitalist, who will evaluate the patient for admission. Triage Nursing notes reviewed and agree them. Prior/outside medical records reviewed Vital Signs: reviewed Differential diagnosis: Reactive airway disease, pneumonia, pneumothorax, COPD, CHF, infections, cardiac ischemia, pulmonary embolism, musculoskeletal, gastrointestinal, as well as other pathologies. ER treatment provided: See below. Diagnostics interpreted by me: ECG: Normal sinus rhythm, 65 bpm, no ectopy, no overt ST elevation or depression, QTc 455, QRS 94. Cardiac Monitoring: An order for continuous cardiac monitoring was placed and demonstrated Normal sinus rhythm, 65 bpm, no ectopy. Laboratory studies: See below Imaging studies: See below Consultation(s): VIRGEN Byrd hospitalist HPI: The patient is a pleasant 77-year-old woman with a past medical history of CKD, COPD, GERD, hypertension, hyperlipidemia, hypothyroidism who presents to the emergency department via walk-in, comedy by her daughter for ongoing upper abdominal/lower chest pain with associated shortness of breath over the past several days being seen at [facility] for similar symptoms where she had x-rays performed that demonstrated constipation and blood work that was at her baseline. She reports feeling as though there is a pressure in her upper abdomen/lower chest which makes it difficult to breathe. She reports that she has been wheezing and coughing more. She reports they did give her a nebulizer treatment at [place] 2 days ago. ROS: See above HPI for pertinent positives & negatives. A total of 10 systems reviewed and were otherwise negative. VITALS:See Below PHYSICAL EXAMINATION: GENERAL: Awake, alert, fatigued/mildly dyspneic-appearing, in no distress HENT: Normocephalic, atraumatic. Oropharynx with dry mucous membranes and otherwise unremarkable. EYES: Normal conjunctiva. Sclera non-icteric. NECK: Supple. No nuchal rigidity. FROM. No JVD. RESPIRATORY: Diminished at the bases with mild wheezes and rhonchi of bilateral lung mai. CARDIAC: Regular rate, normal rhythm. Extremities warm and well perfused. Pulses equal. ABDOMEN: Soft, non-distended. Mild upper abdominal discomfort without discrete tenderness to palpation. No rebound or guarding. No masses. RECTAL: Deferred. MUSCULOSKELETAL: Chest examination reveals no tenderness. The back is s ymmetrical on inspection without obvious abnormality. There is no CVA tenderness to palpation. No joint edema. LOWER EXTREMITIES: Calves are equal size bilaterally and non-tender. No edema. No discoloration. NEURO: Normal sensorium. No sensory or motor deficits noted. SKIN: No rash or jaundice noted. Quintin Morataya MD Past Med/Surg History Medical History Anemia Anemia due to GI blood loss AV fistula left arm>not using now AVM (arteriovenous malformation) AVM (arteriovenous malformation) of small bowel, acquired with hemorrhage Bereavement due to life event Blood in stool resolved Cardiac murmur Carotid stenosis, left Left carotid endarterectomy 11/[address] [facility] with [address] Love Chronic back pain Chronic kidney disease, stage 4 (severe) [facility] Chronic obstructive pulmonary disease inhaler/nebulizer prn Chronic obstructive pulmonary disease CKD (chronic kidney disease) stage 4, GFR 15-29 ml/min DVT prophylaxis Encounter for pre-operative examination GERD (gastroesophageal reflux disease) GI bleed Hemorrhagic gastritis Hx of gout Hyperlipidemia Hypertension Hypothyroidism Melena Mesenteric artery stenosis Peripheral arterial disease Renal artery stenosis Symptomatic anemia Tobacco use disorder Tobacco use disorder Surgical History History of bilateral cataract extraction History of carotid endarterectomy (12/10/20) [facility] with Dr Love History of carpal tunnel release of both wrists History of cholecystectomy History of colonoscopy 11/05/21 [facility] History of colonoscopy with polypectomy History of esophagogastroduodenoscopy (EGD) History of laminectomy lumbar History of repair of right rotator cuff History of tooth extraction all teeth removed Family History Mother Family history of diabetes mellitus Brother Family history of diabetes mellitus Sister Family history of diabetes mellitus Other No family history of adverse response to anesthesia Social History Smoking Status: Current every day smoker Tobacco Type: Cigarettes Age Started Using Tobacco: 20; Cigarettes Per Day: 20 PER DAY; Second Hand Exposure: Yes; Do You Dip or Chew Tobacco: No; Hx Alcohol Use: Yes Alcohol type: wine Hx Substance Use: No Preferred Language: Qatari Communication Ability: Effective Carton Maker Required: No Beliefs That Will Affect Care: None marital status: Current Living Situation: Alone current occupational status: 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 [employer] How many Children do You have: 2 Feels Safe at Home: Yes Childhood Exposure to Second-Hand Smoke: No Assistive Devices: Walker Allergies Allergies Allergy/AdvReac Type Severity Reaction Status Date / Time sulfamethoxazole Allergy Severe ELEVATED Verified 09/25/22 06:18 POTASSIUM, BRADYCARDIC "HEART TRIED TO SHUT DOWN" trimethoprim Allergy Severe ELEVATED Verified 09/25/22 06:18 POTASSIUM, BRADYCARDIC "HEART TRIED TO SHUT DOWN" codeine Allergy Intermediate RASH, Verified 09/25/22 06:18 RAPID HEART BEAT gabapentin Allergy Intermediate HALLUCINATIONS; Verified 09/25/22 06:18 SCREAMING/YELLING hydromorphone [From Dilaudid] AdvReac Intermediate Hallucinati Verified 09/25/22 06:18 ng morphine AdvReac Unknown unsure Verified 09/25/22 06:18 "might be okay to take" oxycodone [From Percocet] AdvReac Unknown unsure Verified 09/25/22 06:18 "might be okay to take" Home Meds Home Medications Medication Instructions Recorded Confirmed atorvastatin 40 mg tablet 40 mg PO QPM 09/16/18 09/25/22 calcium carbonate 600 mg-vitamin 1 cap PO QAM 09/16/18 09/25/22 D3 5 mcg (200 unit) capsule (Calcium 600 + D(3)) hydralazine 100 mg tablet 100 mg PO BID 04/19/19 09/25/22 amlodipine 10 mg tablet 10 mg PO QAM 10/10/20 09/25/22 carvedilol 3.125 mg tablet 3.125 mg PO BID 10/10/20 09/25/22 ascorbic acid (vitamin C) 500 mg 500 mg PO QAM 12/10/20 09/25/22 tablet (Vitamin C) multivitamin 1 tab PO DAILY 12/10/20 09/25/22 B-complex with vitamin C 1 tab PO QAM 02/17/21 09/25/22 nitroglycerin 0.4 mg sublingual 0.4 mg sublingual DIRECTED PRN 03/30/21 09/25/22 tablet Chest Pain albuterol sulfate 90 mcg/actuation 2 puff inhalation UD PRN Shortness 11/14/21 05/05/23 aerosol inhaler Of Breath Or Wheezing trazodone 50 mg tablet 50 mg PO HS PRN Sleep 06/16/22 09/25/22 benzonatate 100 mg capsule 100 mg PO BID PRN Unknown 07/01/22 09/25/22 lidocaine 4 % topical patch 1 patch topical DAILY PRN Pain 07/01/22 09/25/22 vitamin E 50 unit capsule 50 unit PO DAILY 09/25/22 09/25/22 Previous Rx's Medication Instructions Recorded pantoprazole 40 mg tablet,delayed 40 mg PO BID #60 tabs 04/01/21 release furosemide 20 mg tablet 20 mg PO DAILY #90 tabs 06/16/22 magnesium oxide 500 mg tablet 500 mg PO DAILY #30 tabs 06/16/22 tramadol 50 mg tablet 50 mg PO TID PRN pain #60 tabs 07/01/22 levothyroxine 25 mcg tablet 25 mcg PO QAM #90 tabs 09/25/22 Results & Data (ED) Vital Signs Vital Signs - 24 hr 10/11/22 22:18 10/11/22 22:36 10/11/22 22:36 Temperature 37 C Temperature Source Temporal Artery Scan Pulse Rate 60 Pulse Rate [Left Apical] 65 Pulse Rhythm [Left Apical] Respiratory Rate 17 30 H Respiratory Effort / Characteristics Labored Short of Breath Respiratory Depth Normal Blood Pressure 170/75 H Blood Pressure [Right Arm] 160/65 H Blood Pressure Mean 106 Blood Pressure Mean [Right Arm] 96 Blood Pressure Position [Right Arm] Pulse Oximetry 95 94 Oxygen Delivery Method Room Air Room Air Oxygen Flow Rate Sepsis Recent Fever Within 48 Hours No Sepsis New/Unexplained Change in Mental Status No Sepsis Action Taken by Nursing No Action Required 10/11/22 22:36 10/11/22 23:11 10/11/22 23:37 Temperature Temperature Source Pulse Rate Pulse Rate [Left Apical] 67 Pulse Rhythm [Left Apical] Respiratory Rate 20 Respiratory Effort / Characteristics Non-Labored Spontaneous Respiratory Depth Normal Blood Pressure Blood Pressure [Right Arm] 170/74 H Blood Pressure Mean Blood Pressure Mean [Right Arm] 106 Blood Pressure Position [Right Arm] Sitting Pulse Oximetry 95 95 95 Oxygen Delivery Method Room Air Room Air Room Air Oxygen Flow Rate 0 Sepsis Recent Fever Within 48 Hours Sepsis New/Unexplained Change in Mental Status Sepsis Action Taken by Nursing 10/12/22 00:15 10/12/22 01:34 10/12/22 03:10 Temperature Temperature Source Pulse Rate Pulse Rate [Left Apical] 67 78 74 Pulse Rhythm [Left Apical] Regular Respiratory Rate 22 20 18 Respiratory Effort / Characteristics Non-Labored Spontaneous Non-Labored Spontaneous Non-Labored Spontaneous Respiratory Depth Normal Normal Normal Blood Pressure Blood Pressure [Right Arm] 167/53 H 171/51 H 173/63 H Blood Pressure Mean Blood Pressure Mean [Right Arm] 91 91 99 Blood Pressure Position [Right Arm] Pulse Oximetry 95 93 95 Oxygen Delivery Method Room Air Room Air Nasal Cannula Oxygen Flow Rate 1 Sepsis Recent Fever Within 48 Hours Sepsis New/Unexplained Change in Mental Status Sepsis Action Taken by Nursing 10/11/22 22:31 10/12/22 04:11 10/12/22 04:26 Temperature Temperature Source Pulse Rate 78 80 Pulse Rate [Left Apical] 74 Pulse Rhythm [Left Apical] Respiratory Rate 18 Respiratory Effort / Characteristics Non-Labored Spontaneous Respiratory Depth Normal Blood Pressure Blood Pressure [Right Arm] 178/76 H Blood Pressure Mean Blood Pressure Mean [Right Arm] 110 Blood Pressure Position [Right Arm] Pulse Oximetry 93 Oxygen Delivery Method Nasal Cannula Oxygen Flow Rate 1 Sepsis Recent Fever Within 48 Hours Sepsis New/Unexplained Change in Mental Status Sepsis Action Taken by Nursing Laboratory Data Attestation: I reviewed the patient's lab results. 10/11/22 23:05 10/11/22 23:05 Lab Results 10/11/22 10/11/22 10/11/22 Range/Units 22:59 23:05 23:05 WBC 8.59 (4.8-10.8) K/ul RBC 2.74 L (4.20-5.40) M/uL Hgb 8.3 L (12.0-16.0) g/dl Hct 25.6 L (37.0-47.0) % MCV 93.4 (80.0-100.0) fL MCH 30.3 (25.0-34.0) pg MCHC 32.4 (32.0-36.0) g/dL RDW Std Deviation 65.2 H (36.4-46.3) fL RDW Coeff of Kris 18.8 H (11.5-14.5) % Plt Count 197 (130-400) K/uL MPV 9.5 (9.4-12.4) fL Immature Gran % (Auto) 0.3 % Neut % (Auto) 73.7 % Lymph % (Auto) 13.9 % [place] % (Auto) 9.5 % Eos % (Auto) 2.0 % Baso % (Auto) 0.6 % Neut # (Auto) 6.33 (1.40-6.50) K/uL Lymph # (Auto) 1.19 L (1.2-3.4) K/uL [place] # (Auto) 0.82 H (0.11-0.59) K/uL Eos # (Auto) 0.17 (0-0.50) K/uL Baso # (Auto) 0.05 (0-0.2) K/uL Immature Gran # (Auto) 0.03 (0.01-0.20) K/uL Sodium 133 L (136-145) mmol/L Potassium 5.1 (3.5-5.1) mmol/L Chloride 105 (98-107) mmol/L Carbon Dioxide 18 L (21-32) mmol/L Anion Gap 10 (3-11) BUN 82 H (6-23) mg/dl Creatinine 4.65 H* (0.6-1.2) mg/dl Est Cr Clr Drug Dosing 11.2 ml/min Est GFR ( Amer) 9.8 ml/min Est GFR (Non-Af Amer) 8.5 ml/min BUN/Creatinine Ratio 17.6 (10-20) Glucose 85 (70-99(Fasting)) mg/dl Lactate (0.4-2.0) mmol/L Calcium 8.4 L (8.6-10.3) mg/dl Phosphorus 5.4 H (2.5-4.9) mg/dl Magnesium 2.0 (1.7-2.4) mg/dl Total Bilirubin 0.6 (0.2-1.0) mg/dl AST 16 (13-39) U/L ALT 8 (7-52) U/L Alkaline Phosphatase 120 H (34-104) U/L Troponin I High Sens 15.6 H (0-14) pg/ml Total Protein 6.0 (6.0-8.3) gm/dl Albumin 3.6 (3.4-5.0) gm/dl Globulin 2.4 L (2.5-4.0) gm/dl Albumin/Globulin Ratio 1.5 (0.9-2) Lipase 35 (11-82) U/L Procalcitonin (0-0.5) ng/ml SARS-CoV-2, RNA, NAAT NEGATIVE (NEGATIVE) 10/11/22 10/12/22 Range/Units 23:06 03:40 WBC (4.8-10.8) K/ul RBC (4.20-5.40) M/uL Hgb (12.0-16.0) g/dl Hct (37.0-47.0) % MCV (80.0-100.0) fL MCH (25.0-34.0) pg MCHC (32.0-36.0) g/dL RDW Std Deviation (36.4-46.3) fL RDW Coeff of Kris (11.5-14.5) % Plt Count (130-400) K/uL MPV (9.4-12.4) fL Immature Gran % (Auto) % Neut % (Auto) % Lymph % (Auto) % [place] % (Auto) % Eos % (Auto) % Baso % (Auto) % Neut # (Auto) (1.40-6.50) K/uL Lymph # (Auto) (1.2-3.4) K/uL [place] # (Auto) (0.11-0.59) K/uL Eos # (Auto) (0-0.50) K/uL Baso # (Auto) (0-0.2) K/uL Immature Gran # (Auto) (0.01-0.20) K/uL Sodium (136-145) mmol/L Potassium (3.5-5.1) mmol/L Chloride (98-107) mmol/L Carbon Dioxide (21-32) mmol/L Anion Gap (3-11) BUN (6-23) mg/dl Creatinine (0.6-1.2) mg/dl Est Cr Clr Drug Dosing ml/min Est GFR ( Amer) ml/min Est GFR (Non-Af Amer) ml/min BUN/Creatinine Ratio (10-20) Glucose (70-99(Fasting)) mg/dl Lactate 0.7 (0.4-2.0) mmol/L Calcium (8.6-10.3) mg/dl Phosphorus (2.5-4.9) mg/dl Magnesium (1.7-2.4) mg/dl Total Bilirubin (0.2-1.0) mg/dl AST (13-39) U/L ALT (7-52) U/L Alkaline Phosphatase (34-104) U/L Troponin I High Sens (0-14) pg/ml Total Protein (6.0-8.3) gm/dl Albumin (3.4-5.0) gm/dl Globulin (2.5-4.0) gm/dl Albumin/Globulin Ratio (0.9-2) Lipase (11-82) U/L Procalcitonin 0.11 (0-0.5) ng/ml SARS-CoV-2, RNA, NAAT (NEGATIVE) Administered Medications Albuterol (Albut/Ipratrop 3mg/0.5mg Neb 3 Ml Vial) 3 ml NEB QIDR [facility]; Protocol Stop: 11/11/22 10:59 Last Admin: 10/12/22 15:13 Dose: 3 ml Documented By: Admin: 10/12/22 10:47 Dose: 3 ml Documented By: MERI Amlodipine Besylate (Amlodipine Besylate 5 Mg Tab) 10 mg PO [facility] Stop: 11/11/22 08:59 Last Admin: 10/12/22 09:08 Dose: 10 mg Documented By: PHIL Benzonatate (Benzonatate 100 Mg Capsule) 100 mg PO BID PRN PRN Reason: Unknown Stop: 11/11/22 06:15 Last Admin: 10/12/22 12:38 Dose: 100 mg Documented By: JESUS ALBERTO Bumetanide (Bumetanide 1 Mg Tab) [facility] [place] Stop: 11/11/22 12:44 Last Admin: 10/12/22 13:03 Dose: 1 mg Documented By: JESUS ALBERTO Carvedilol (Carvedilol 3.125 Mg Tab) 3.125 [facility] [place] Stop: 11/11/22 08:59 Last Admin: 10/12/22 16:12 Dose: 3.125 mg Documented By: JESUS ALBERTO Admin: 10/12/22 09:08 Dose: 3.125 mg Documented By: PHIL Heparin Sodium (Porcine) (Heparin Sod 5,000 Unit/0.5 Ml Vial) 5,000 units SQ Q12 [facility] Stop: 11/11/22 08:59 Last Admin: 10/12/22 09:09 Dose: 5,000 units Documented By: PHIL Hydralazine HCl (Hydralazine Tab 50 Mg Tab) 100 mg PO BID [facility] Stop: 11/11/22 08:59 Last Admin: 10/12/22 09:08 Dose: 100 mg Documented By: PHIL Ceftriaxone Sodium 2,000 mg/ (Dextrose) 70 mls @ 100 mls/hr IV Q24H [facility]; Protocol Stop: 10/19/22 08:59 Last Infusion: 10/12/22 10:03 Dose: 0 mls/hr Documented By: JESUS ALBERTO Admin: 10/12/22 09:09 Dose: 100 mls/hr Documented By: PHIL Methylprednisolone 40 mg/ (Syringe) 0.64 mls @ 1.5 mls/min IV BID [facility] Stop: 11/11/22 08:59 Last Admin: 10/12/22 09:08 Dose: 1.5 mls/min Documented By: PHIL Levothyroxine Sodium (Levothyroxine Sodium 25 Mcg Tablet) 25 mcg PO DAILYBB [facility] Stop: 11/11/22 08:59 Last Admin: 10/12/22 08:01 Dose: 25 mcg Documented By: CLEMENT Nicotine (Nicotine 21 Mg/24 Hr Tdsy) 21 mg TD QAM [facility] Stop: 11/11/22 12:59 Last Admin: 10/12/22 16:12 Dose: 21 mg Documented By: JESUS ALBERTO Pantoprazole Sodium (Pantoprazole 40 Mg Tab) 40 mg PO BID [facility] Stop: 11/11/22 08:59 Last Admin: 10/12/22 09:08 Dose: 40 mg Documented By: PHIL Polyethylene Glycol (Polyethylene (Miralax) 17 Gm Pack) 17 gm PO DAILY [facility] Stop: 11/11/22 08:59 Last Admin: 10/12/22 09:21 Dose: 17 gm Documented By: PHIL Sennosides (Senna 8.6 Mg Tab) 17.2 mg PO QAM [facility] Stop: 11/11/22 08:59 Last Admin: 10/12/22 10:52 Dose: 17.2 mg Documented By: JESUS ALBERTO Sodium Bicarbonate (Sodium Bicarbonate 650 Mg Tab) 650 mg PO DAILY [facility] Stop: 11/11/22 10:59 Last Admin: 10/12/22 13:03 Dose: 650 mg Documented By: JESUS ALBERTO Discontinued Medications Albuterol (Albut/Ipratrop 3mg/0.5mg Neb 3 Ml Vial) 3 ml NEB NOW STA; Protocol Stop: 10/11/22 23:42 Last Admin: 10/11/22 23:46 Dose: 3 ml Documented By: CONCEPCION Bisacodyl (Bisacodyl 10 Mg Supp) 10 mg MI NOW STA Stop: 10/12/22 08:56 Last Admin: 10/12/22 09:21 Dose: 10 mg Documented By: PHIL Famotidine (Pepcid 20mg Iv Push) 20 mg in 5 mls @ 2.5 mls/min IV NOW STA Stop: 10/11/22 23:42 Last Admin: 10/11/22 23:46 Dose: 2.5 mls/min Documented By: CONCEPCION Ampicillin Sodium/Sulbactam Sodium 3,000 mg/ Sodium Chloride 108 mls @ 200 mls/hr IV NOW STA; Protocol Stop: 10/12/22 03:53 Last Infusion: 10/12/22 04:21 Dose: 0 mls/hr Documented By: Admin: 10/12/22 03:47 Dose: 200 mls/hr Documented By: CONCEPCION Azithromycin 500 mg/ Dextrose 255 mls @ 127.5 mls/hr IV NOW STA Stop: 10/12/22 05:20 Last Infusion: 10/12/22 06:30 Dose: 0 mls/hr Documented By: Admin: 10/12/22 04:29 Dose: 127.5 mls/hr Documented By: CONCEPCION Sodium Chloride (Nss) 500 mls @ 80 mls/hr IV .Q6H15M [facility] Stop: 11/11/22 03:29 Last Infusion: 10/12/22 11:20 Dose: 0 mls/hr Documented By: JESUS ALBERTO Admin: 10/12/22 10:02 Dose: Not Given Documented By: JESUS ALBERTO Admin: 10/12/22 06:29 Dose: 80 mls/hr Documented By: CONCEPCION Methylprednisolone (Methylprednisolone 125 Mg/2 Ml Vial) 125 mg IV NOW STA Stop: 10/11/22 23:42 Last Admin: 10/11/22 23:46 Dose: 125 mg Documented By: CONCEPCION Sodium Zirconium Cyclosilicate (Sodium Zirconium Cyclosilicate 10 Gm Packet) 10 gm PO ONE ONE Stop: 10/12/22 10:56 Last Admin: 10/12/22 12:38 Dose: 10 gm Documented By: JESUS ALBERTO Sucralfate (Sucralfate 1 Gm/10 Ml Udc) 1 gm PO NOW STA Stop: 10/11/22 23:42 Last Admin: 10/11/22 23:46 Dose: 1 gm Documented By: CONCEPCION Imaging Data Radiologist's Impression: Chest X-Ray 10/11/22 22:42 XR chest 1V portable CLINICAL HISTORY: Chest pain, nonspecific COMPARISON STUDY: Chest radiograph April 06, 2021. FINDINGS: There is no pneumothorax. There are small right and trace left pleural effusions. Mild right basilar opacity favors atelectasis. Mild interstitial pulmonary edema is present. There is mild cardiomegaly. IMPRESSION: Mild interstitial pulmonary edema with small right and trace left pleural effusions. ACT 112: Negative or not required by law. Electronically signed by: Conor Glasgow M.D. 10/12/2022 8:16 AM Chest X-Ray 10/11/22 22:42 XR chest 1V portable CLINICAL HISTORY: Chest pain, nonspecific COMPARISON STUDY: Chest radiograph April 06, 2021. FINDINGS: There is no pneumothorax. There are small right and trace left pleural effusions. Mild right basilar opacity favors atelectasis. Mild interstitial pulmonary edema is present. There is mild cardiomegaly. IMPRESSION: Mild interstitial pulmonary edema with small right and trace left pleural effusions. ACT 112: Negative or not required by law. Electronically signed by: Conor Glasgow M.D. 10/12/2022 8:16 AM Abdomen/Pelvis CT 10/11/22 23:42 Exam(s): CT ABDOMEN + PELVIS Without Contrast EXAM: CT Abdomen and Pelvis Without Intravenous Contrast CLINICAL HISTORY: Reason for exam: cp/ap, nausea, sob. TECHNIQUE: Axial computed tomography images of the abdomen and pelvis without intravenous contrast. CTDI is 18.66 mGy and DLP is 872.77 mGy-cm. Automated exposure control was utilized for the study. A dose lowering technique was utilized adhering to the principles of ALARA. COMPARISON: 04/06/2021. FINDINGS: Lung bases: Bilateral lower lobe consolidation, more significant on the right and compatible with infiltrates. Pleural space: Mild bilateral pleural effusions, right larger than left. Heart: Mild cardiomegaly with coronary artery calcific. ABDOMEN: Liver: Unremarkable. Gallbladder and bile ducts: Status post cholecystectomy otherwise unremarkable biliary system. No ductal dilation. Pancreas: Mild stranding surrounding the pancreas, cannot exclude pancreatitis. No ductal dilation. Spleen: Unremarkable. No splenomegaly. Adrenals: Unremarkable. No mass. Kidneys and ureters: Right lower renal pole low-attenuation structure, stable in the interval measuring 1.8 cm and compatible with simple renal cyst. Multiple calcifications within the right kidney, largest measuring 2.6 mm suggestive of stones versus vascular etiology. Otherwise unremarkable right kidney with no hydronephrosis. Calcifications within the left kidney, largest measuring 6 mm suggestive of stones versus vascular etiology. Left lower renal pole low-attenuation structure measuring 1.4 cm, stable in the interval and most compatible with simple cyst. Otherwise normal left kidney. Stomach and bowel: Increased fecal debris within the colon more severe distally and within the sigmoid suggestive of constipation. No obstruction. No mucosal thickening. PELVIS: Appendix: Normal appendix. Bladder: Unremarkable. No stones. Reproductive: Anteverted uterus. ABDOMEN and PELVIS: Intraperitoneal space: Unremarkable. No free air. No significant fluid collection. Bones/joints: Advanced degenerative disease of the spine with multilevel vacuum phenomenon. Scoliosis of the lumbar spine with convexity to the right. No acute fracture. No dislocation. Soft tissues: Unremarkable. Vasculature: Atherosclerotic disease of aorta with tortuosity. No aneurysm. Lymph nodes: Unremarkable. No enlarged lymph nodes. IMPRESSION: 1. Constipation. No acute appendicitis or bowel obstruction. 2. Status post cholecystectomy. Bilateral simple renal cysts as described, stable in the interval and likely benign. No further imaging follow-up recommended unless warranted by clinical presentation. 3. Cannot exclude pancreatitis, correlation with amylase and lipase recommended. 4. Bilateral pleural effusions with bilateral lower lobe consolidation suggestive of residual infiltrates. Clinical correlation recommended. Electronically signed by: Viky Trejo MD 10/12/22 02:[address] 10/11/22 23:42 Exam(s): CT CHEST Without Contrast EXAM: CT Chest Without Intravenous Contrast CLINICAL HISTORY: Reason for exam: cp/ap, nausea, sob. TECHNIQUE: Axial computed tomography images of the chest without intravenous contrast. CTDI is 14.87 mGy and DLP is 872.77 mGy-cm. Automated exposure control was utilized for the study. A dose lowering technique was utilized adhering to the principles of ALARA. COMPARISON: None. FINDINGS: Lungs: Right lower lobe consolidation suggestive of pneumonia. Left posterior lower lobe atelectasis with mild subpleural consolidation, cannot exclude residual infiltrate. Possible mild emphysematous changes at the lung apices. Pleural space: Mild right-sided pleural effusion. Trace left-sided pleural effusion. No pneumothorax. Heart: Borderline cardiomegaly with coronary artery calcifications. No significant pericardial effusion. Bones/joints: Advanced degenerative disease of the spine, more severe through the upper lumbar spine and thoracolumbar junction. No acute fracture. No dislocation. Soft tissues: Unremarkable. Vasculature: Unremarkable. No thoracic aortic aneurysm. Lymph nodes: Unremarkable. No enlarged lymph nodes. Gallbladder and bile ducts: Upper abdomen reveals status post cholecystectomy otherwise unremarkable biliary system. IMPRESSION: 1. Bilateral mild pleural effusions, right larger than left. 2. Bilateral lower lobe consolidation with subpleural interstitial and groundglass density suggestive of bilateral lower lobe pneumonia, right more significant compared to the left. Electronically signed by: Viky Trejo MD 10/12/22 02:38 AM Discharge Plan Visit Data Chief Complaint: Shortness of Breath/Dyspnea Stated Complaint: SOB, ABDOMINAL PAIN ED Provider: Quintin Morataya Discharge Problem: Pneumonia, COPD exacerbation, Constipation, Shortness of breath at rest Patient Disposition: Admitted As Inpatient Discharge Instructions Interventions: ED Discharge Assessment Last Done: 10/12/22 06:15
[2022-10-12] MEDS ORDERED: ALUMINUM/MAGNESIUM SUSP 30 ML UDC PO PRN (06:16)
[2022-10-12] MEDS ORDERED: POLYETHYLENE (MIRALAX) 17 GM PACK PO PRN (06:16)
[2022-10-12] MEDS ORDERED: traZODone HCL 50 MG TAB PO PRN (06:16)
[2022-10-12] MEDS ORDERED: NITROGLYCERIN SL 0.4 MG/TAB TAB SL PRN (06:16)
[2022-10-12] MEDS ORDERED: ACETAMINOPHEN 325 MG TAB PO PRN (06:16)
[2022-10-12] MEDS ORDERED: LIDOCAINE 5% 1 PATCH TD PRN (06:25)
[2022-10-12] MEDS: SODIUM CHLORIDE 0.9% 500 ML IV SCH ×2 (06:29→10:02)
--- NOTE | 2022-10-12 06:43 | History & Physical Report ---
Date of Service October 12, 2022 Assessment & Plan (1) Pneumonia: Plan: Patient presents to ED with complaints of worsening shortness of breath with cough symptoms and upper abdominal discomfort Further evaluation in the ED shows CT findings indicating bilateral pleural e ffusion with basilar consolidation suspicious for pneumonia Patient started on antibiotic coverage with IV Unasyn and IV azithromycin for community-acquired pathogens with atypical coverage Continue supplemental oxygen with pulse oximetry monitoring Bronchodilators as needed will defer pulmonary input to a.m. team for further follow-up of pleural effusion based on further response (2) COPD exacerbation: Plan: Patient has a history of known COPD with ongoing smoking history Smoking cessation Continue bronchodilators with nebulizer treatments IV steroids (3) Chronic kidney disease, stage 4 (severe): Plan: Patient presents with serum creatinine of 4.65 indicating of chronic kidney disease stage IV Avoid nephrotoxins and NSAIDs Patient has underlying anemia likely secondary to CKD Monitor input output status closely (4) Anemia: Plan: Patient hemoglobin of 8.3 no evidence of ongoing GI bleed Patient also has underlying chronic kidney disease and this could be secondary to CKD Trend hemoglobin levels (5) Hypertension: Plan: Continue amlodipine 10 mg daily along with carvedilol 3.125 mg with hold parameters Monitor blood pressure trend titrate meds as tolerated (6) Hyperlipidemia: Plan: Continue statin therapy with atorvastatin 40 mg daily (7) Hypothyroidism: Plan: Continue levothyroxine 25 MCG g daily Check TSH level (8) GERD (gastroesophageal reflux disease): Plan: Continue PPI therapy with Protonix 40 mg daily Admission and Anticipated Discharge Date Admission Date: October 12, 2022 History of Present Illness Chief Complaint: Patient presents to ED with complains of worsening shortness of breath Primary Care Provider: MAREN Dawson This is a 77-year-old female with past medical history significant history of chronic kidney disease, COPD, hypertension, hyperlipidemia, hypothyroidism on thyroid replacement, who presents to the emergency department with complaints of upper abdominal discomfort associated with shortness of breath. Patient is recently been seen in [facility] for evaluation of similar symptoms when she had x-ray of the abdomen that demonstrated constipation that was attributed to her abdominal discomfort and patient was discharged home from ED. patient however reports that she had ongoing upper abdominal discomfort and also reports worsening shortness of breath along with worsening cough symptoms and hence presents to ED for further evaluation. Patient was evaluated in the ED and was found to have oxygen sats in the 90s upon initial arrival and patient was placed on nasal cannula along with DuoNeb administration. Further work-up in the ED reveals evidence of underlying CKD with a creatinine of 4.6 and high-sensitivity troponin was 50. CT of the chest shows evidence of bilateral pleural effusion with basilar consolidation suspicious for pneumonia. Patient was also noted to have stool retention in the CT consistent with constipation symptoms. Patient was started on IV antibiotic therapy with IV Unasyn along with azithromycin for community-acquired pathogens and atypical coverage. Allergies Allergy/AdvReac Type Severity Reaction Status Date / Time sulfamethoxazole Allergy Severe ELEVATED Verified 09/25/22 06:18 POTASSIUM, BRADYCARDIC "HEART TRIED TO SHUT DOWN" trimethoprim Allergy Severe ELEVATED Verified 09/25/22 06:18 POTASSIUM, BRADYCARDIC "HEART TRIED TO SHUT DOWN" codeine Allergy Intermediate RASH, Verified 09/25/22 06:18 RAPID HEART BEAT gabapentin Allergy Intermediate HALLUCINATIONS; Verified 09/25/22 06:18 SCREAMING/YELLING hydromorphone [From Dilaudid] AdvReac Intermediate Hallucinati Verified 09/25/22 06:18 ng morphine AdvReac Unknown unsure Verified 09/25/22 06:18 "might be okay to take" oxycodone [From Percocet] AdvReac Unknown unsure Verified 09/25/22 06:18 "might be okay to take" Home Medications Medication Instructions Recorded Confirmed Type atorvastatin 40 mg tablet 40 mg PO QPM 09/16/18 09/25/22 History calcium carbonate 600 mg-vitamin 1 cap PO QAM 09/16/18 09/25/22 History D3 5 mcg (200 unit) capsule (Calcium 600 + D(3)) hydralazine 100 mg tablet 100 mg PO BID 04/19/19 09/25/22 History amlodipine 10 mg tablet 10 mg PO QAM 10/10/20 09/25/22 History carvedilol 3.125 mg tablet 3.125 mg PO BID 10/10/20 09/25/22 History ascorbic acid (vitamin C) 500 mg 500 mg PO QAM 12/10/20 09/25/22 History tablet (Vitamin C) multivitamin 1 tab PO DAILY 12/10/20 09/25/22 History B-complex with vitamin C 1 tab PO QAM 02/17/21 09/25/22 History nitroglycerin 0.4 mg sublingual 0.4 mg sublingual DIRECTED PRN 03/30/21 09/25/22 History tablet Chest Pain pantoprazole 40 mg tablet,delayed 40 mg PO BID #60 tabs 04/01/21 09/25/22 Rx release albuterol sulfate 90 mcg/actuation 2 puff inhalation UD PRN Shortness 04/06/21 09/25/22 History aerosol inhaler Of Breath Or Wheezing furosemide 20 mg tablet 20 mg PO DAILY #90 tabs 06/16/22 09/25/22 Rx magnesium oxide 500 mg tablet 500 mg PO DAILY #30 tabs 06/16/22 09/25/22 Rx trazodone 50 mg tablet 50 mg PO HS PRN Sleep 06/16/22 09/25/22 History benzonatate 100 mg capsule 100 mg PO BID PRN Unknown 07/01/22 09/25/22 History lidocaine 4 % topical patch 1 patch topical DAILY PRN Pain 07/01/22 09/25/22 History tramadol 50 mg tablet 50 mg PO TID PRN pain #60 tabs 07/01/22 09/25/22 Rx levothyroxine 25 mcg tablet 25 mcg PO QAM #90 tabs 09/25/22 Rx vitamin E 50 unit capsule 50 unit PO DAILY 09/25/22 09/25/22 History Past Med/Surg History Medical History Anemia Anemia due to GI blood loss AV fistula left arm>not using now AVM (arteriovenous malformation) AVM (arteriovenous malformation) of small bowel, acquired with hemorrhage Bereavement due to life event Blood in stool resolved Cardiac murmur Carotid stenosis, left Left carotid endarterectomy 11/2020 [facility] with Dr Love Chronic back pain Chronic kidney disease, stage 4 (severe) [facility] Neph[facility] Chronic obstructive pulmonary disease inhaler/nebulizer prn Chronic obstructive pulmonary disease CKD (chronic kidney disease) stage 4, GFR 15-29 ml/min DVT prophylaxis Encounter for pre-operative examination GERD (gastroesophageal reflux disease) GI bleed Hemorrhagic gastritis Hx of gout Hyperlipidemia Hypertension Hypothyroidism Melena Mesenteric artery stenosis Peripheral arterial disease Renal artery stenosis Symptomatic anemia Tobacco use disorder Tobacco use disorder Surgical History History of bilateral cataract extraction History of carotid endarterectomy (12/10/20) [facility] with Dr Love History of carpal tunnel release of both wrists History of cholecystectomy History of colonoscopy 11/05/21 [facility] History of colonoscopy with polypectomy History of esophagogastroduodenoscopy (EGD) History of laminectomy lumbar History of repair of right rotator cuff History of tooth extraction all teeth removed Family History Mother Family history of diabetes mellitus Brother Family history of diabetes mellitus Sister Family history of diabetes mellitus Other No family history of adverse response to anesthesia Social History Smoking Status: Current every day smoker Tobacco Type: Cigarettes Age Started Using Tobacco: 20; Cigarettes Per Day: 20 PER DAY; Second Hand Exposure: No; Do You Dip or Chew Tobacco: No; Hx Alcohol Use: Yes Alcohol type: wine Hx Substance Use: No Preferred Language: Lithuanian Communication Ability: Effective Quantitative Software Engineer Required: No Beliefs That Will Affect Care: None and Mandaeism Mandaeism Beliefs: Shinto marital status: Current Living Situation: Alone current occupational status: 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 [employer] How many Children do You have: 2 Feels Safe at Home: Yes Childhood Exposure to Second-Hand Smoke: No Assistive Devices: Denture - Upper, Denture - Lower, Glasses and Walker Review of Systems Review of Systems: ENT- no epistaxis, no sore throat Respiratory-presents with shortness of breath positive cough symptoms Cardiac-no palpitations, no chest pain, no syncope GI-no nausea, vomiting, presents with abdominal pain and constipation symptoms -no urinary retention, no urinary incontinence, Musculoskeletal-no joint pain, no muscle tenderness Skin-no bruising, no rashes, no pruritus Neuro-no isolated weakness, Physical Exam Physical Exam: Head and ENT no thyroid enlargement trachea midline Cardiovascular S1-S2 are normal no S3 Lungs bilateral air entry decreased at bases with scattered rhonchi Abdomen soft mild distention positive bowel sounds no rebound tenderness Extremity shows trace edema Neurologically no focal deficits Skin shows no rash no cyanosis Results & Data Results & Data Vital Signs (Past 12 Hours) Vital Signs Temp Pulse Pulse Resp BP BP Pulse Ox 10/12/22 06:31 10/12/22 06:20 70 16 155/80 H 94 10/12/22 05:46 71 18 174/62 H 94 10/12/22 04:26 80 10/12/22 04:11 74 18 178/76 H 93 10/11/22 22:31 78 10/12/22 03:10 74 18 173/63 H 95 10/12/22 01:34 78 20 171/51 H 93 10/12/22 00:15 67 22 167/53 H 95 10/11/22 23:37 67 20 170/74 H 95 10/11/22 23:11 95 10/11/22 22:36 95 10/11/22 22:36 65 30 H 160/65 H 94 10/11/22 22:18 37 C 60 17 170/75 H 95 O2 Del Method O2 Flow Rate 10/12/22 06:31 Nasal Cannula 1 10/12/22 06:20 Nasal Cannula 1 10/12/22 05:46 Room Air 10/12/22 04:26 10/12/22 04:11 Nasal Cannula 1 10/11/22 22:31 10/12/22 03:10 Nasal Cannula 1 10/12/22 01:34 Room Air 10/12/22 00:15 Room Air 10/11/22 23:37 Room Air 10/11/22 23:11 Room Air 10/11/22 22:36 Room Air 0 10/11/22 22:36 Room Air 10/11/22 22:18 Room Air Laboratory Results Short CBC 10/11/22 Range/Units 23:05 WBC 8.59 (4.8-10.8) K/ul Hgb 8.3 L (12.0-16.0) g/dl Hct 25.6 L (37.0-47.0) % Plt Count 197 (130-400) K/uL BMP 10/11/22 23:05 Sodium 133 L Potassium 5.1 Chloride 105 Carbon Dioxide 18 L BUN 82 H Creatinine 4.65 H* Glucose 85 Calcium 8.4 L Liver Function 10/11/22 Range/Units 23:05 Total Bilirubin 0.6 (0.2-1.0) mg/dl AST 16 (13-39) U/L ALT 8 (7-52) U/L Alkaline Phosphatase 120 H (34-104) U/L Albumin 3.6 (3.4-5.0) gm/dl Diagnostic Findings Abdomen/Pelvis CT 10/11/22 23:42 Exam(s): CT ABDOMEN + PELVIS Without Contrast EXAM: CT Abdomen and Pelvis Without Intravenous Contrast CLINICAL HISTORY: Reason for exam: cp/ap, nausea, sob. TECHNIQUE: Axial computed tomography images of the abdomen and pelvis without intravenous contrast. CTDI is 18.66 mGy and DLP is 872.77 mGy-cm. Automated exposure control was utilized for the study. A dose lowering technique was utilized adhering to the principles of ALARA. COMPARISON: 04/06/2021. FINDINGS: Lung bases: Bilateral lower lobe consolidation, more significant on the right and compatible with infiltrates. Pleural space: Mild bilateral pleural effusions, right larger than left. Heart: Mild cardiomegaly with coronary artery calcific. ABDOMEN: Liver: Unremarkable. Gallbladder and bile ducts: Status post cholecystectomy otherwise unremarkable biliary system. No ductal dilation. Pancreas: Mild stranding surrounding the pancreas, cannot exclude pancreatitis. No ductal dilation. Spleen: Unremarkable. No splenomegaly. Adrenals: Unremarkable. No mass. Kidneys and ureters: Right lower renal pole low-attenuation structure, stable in the interval measuring 1.8 cm and compatible with simple renal cyst. Multiple calcifications within the right kidney, largest measuring 2.6 mm suggestive of stones versus vascular etiology. Otherwise unremarkable right kidney with no hydronephrosis. Calcifications within the left kidney, largest measuring 6 mm suggestive of stones versus vascular etiology. Left lower renal pole low-attenuation structure measuring 1.4 cm, stable in the interval and most compatible with simple cyst. Otherwise normal left kidney. Stomach and bowel: Increased fecal debris within the colon more severe distally and within the sigmoid suggestive of constipation. No obstruction. No mucosal thickening. PELVIS: Appendix: Normal appendix. Bladder: Unremarkable. No stones. Reproductive: Anteverted uterus. ABDOMEN and PELVIS: Intraperitoneal space: Unremarkable. No free air. No significant fluid collection. Bones/joints: Advanced degenerative disease of the spine with multilevel vacuum phenomenon. Scoliosis of the lumbar spine with convexity to the right. No acute fracture. No dislocation. Soft tissues: Unremarkable. Vasculature: Atherosclerotic disease of aorta with tortuosity. No aneurysm. Lymph nodes: Unremarkable. No enlarged lymph nodes. IMPRESSION: 1. Constipation. No acute appendicitis or bowel obstruction. 2. Status post cholecystectomy. Bilateral simple renal cysts as described, stable in the interval and likely benign. No further imaging follow-up recommended unless warranted by clinical presentation. 3. Cannot exclude pancreatitis, correlation with amylase and lipase recommended. 4. Bilateral pleural effusions with bilateral lower lobe consolidation suggestive of residual infiltrates. Clinical correlation recommended. Electronically signed by: Viky Trejo MD 10/12/22 02:[address] 10/11/22 23:42 Exam(s): CT CHEST Without Contrast EXAM: CT Chest Without Intravenous Contrast CLINICAL HISTORY: Reason for exam: cp/ap, nausea, sob. TECHNIQUE: Axial computed tomography images of the chest without intravenous contrast. CTDI is 14.87 mGy and DLP is 872.77 mGy-cm. Automated exposure control was utilized for the study. A dose lowering technique was utilized adhering to the principles of ALARA. COMPARISON: None. FINDINGS: Lungs: Right lower lobe consolidation suggestive of pneumonia. Left posterior lower lobe atelectasis with mild subpleural consolidation, cannot exclude residual infiltrate. Possible mild emphysematous changes at the lung apices. Pleural space: Mild right-sided pleural effusion. Trace left-sided pleural effusion. No pneumothorax. Heart: Borderline cardiomegaly with coronary artery calcifications. No significant pericardial effusion. Bones/joints: Advanced degenerative disease of the spine, more severe through the upper lumbar spine and thoracolumbar junction. No acute fracture. No dislocation. Soft tissues: Unremarkable. Vasculature: Unremarkable. No thoracic aortic aneurysm. Lymph nodes: Unremarkable. No enlarged lymph nodes. Gallbladder and bile ducts: Upper abdomen reveals status post cholecystectomy otherwise unremarkable biliary system. IMPRESSION: 1. Bilateral mild pleural effusions, right larger than left. 2. Bilateral lower lobe consolidation with subpleural interstitial and groundglass density suggestive of bilateral lower lobe pneumonia, right more significant compared to the left. Electronically signed by: Viky Trejo MD 10/12/22 02:38 AM Code Status & VTE Plan VTE Prophylaxis Plan VTE Prophylaxis will be ordered: Yes PG Care Time/CCT Total # of Minutes Spent Total Time Spent with Patient: Total time spent is greater than 50% in coordination of care (as documented) at patient's floor/unit and/or counseling patient: Coding Level of Care Code 77942 INT INP/OBS CARE 2/55MIN Diagnoses Pneumonia J18.9 COPD exacerbation J44.1 Chronic kidney disease, stage 4 (severe) N18.4 Anemia D64.9 Anemia type: unspecified type Hypertension I10 Hypertension type: unspecified Hyperlipidemia E78.5 Hypothyroidism E03.9 GERD (gastroesophageal reflux disease) K21.9 (4) Anemia Anemia type: unspecified type Qualified Code(s): D64.9 - Anemia, unspecified (5) Hypertension Hypertension type: unspecified Qualified Code(s): I10 - Essential (primary) hypertension
[2022-10-12] MEDS: LEVOTHYROXINE SODIUM 25 MCG TABLET PO SCH (08:01)
--- NOTE | 2022-10-12 08:17 | XRay Report ---
XR chest 1V portable CLINICAL HISTORY: Chest pain, nonspecific COMPARISON STUDY: Chest radiograph April 06, 2021. FINDINGS: There is no pneumothorax. There are small right and trace left pleural effusions. Mild righ t basilar opacity favors atelectasis. Mild interstitial pulmonary edema is present. There is mild car diomegaly. IMPRESSION: Mild interstitial pulmonary edema with small right and trace left pleural effusions. ACT 112: Negative or not required by law. Electronically signed by: Conor Glasgow M.D. 10/12/2022 8:16 AM
[2022-10-12] MEDS ORDERED: bisacodyL 10 MG SUPP PR STA (08:55)
--- NOTE | 2022-10-12 09:02 | Nephrology Consultation ---
Date of Consultation October 12, 2022 Assessment & Plan (1) LESLIE (acute kidney injury): * LESLIE/CKD vs progressive CKD in the setting of mild CHF, pneumonia * Recommend hold IVF * Start NaHCO3 650 mg po daily * Provide Lokelma 10 g po x1 for correction of hyperkalemia * Discussed potential need for HD w/ patient this am. AVF does not appear mature for use. Discussed potential need for TCC * Monitor PRP, UO (2) Chronic kidney disease, stage V: * 08/13 Baseline Cr 3.98 w/ EGFR 11 cc/min. Renal impairment is on the basis of renal vascular disease. [place] Division Chief [place] [facility] [place] L forearm AVF created 03/[address] 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 Chapin is a 77 year old female who is seen at the request of [facility] for evaluation of advanced CKD. Information for the HPI is obtained from the patient and EMR and is summarized as follows: Mrs. Chapin resides in [place], [place]. She has advanced CKD and has been traveling to [facility] for her Nephrology care with Dr. Bridget Martini. In 08/13 Ms. Chapin's Cr was 3.98 w/ EGFR 11 cc/min. Her renal impairment is attributed to renal vascular disease. She has documented renal and carotid stenosis. Ms. Chapin was noted to be euvolemic and have no uremic symptoms at her 08/13 Nephrology [place] [facility] Close monitoring was advised. Ms. Chapin does have a L forearm AVF. This was created 03/[address] Love but has been slow to mature. Ms. Chapin's medical history is also significant for duodenal/jejunal AVM with recurrent UGI bleeding, COPD, HTN, hyperlipidemia and hypothyroidism. She presented to [facility] 10/11/22 for evaluation of L upper abdominal discomfort and dyspnea. RA SaO2 was 90%, CXR revealed mild interstitial edema w/ small bilateral pleural effusions, Abdominal CT was negative for hydronephrosis but did reveal constipation, bilateral pleural effusions w/ BLL consolidation suggestive of infiltrates and pancreatic stranding concerning for mild pancreatitis. Cr was noted to have risen to 4.48. Allergies Allergy/AdvReac Type Severity Reaction Status Date / Time sulfamethoxazole Allergy Severe ELEVATED Verified 09/25/22 06:18 POTASSIUM, BRADYCARDIC "HEART TRIED TO SHUT DOWN" trimethoprim Allergy Severe ELEVATED Verified 09/25/22 06:18 POTASSIUM, BRADYCARDIC "HEART TRIED TO SHUT DOWN" codeine Allergy Intermediate RASH, Verified 09/25/22 06:18 RAPID HEART BEAT gabapentin Allergy Intermediate HALLUCINATIONS; Verified 09/25/22 06:18 SCREAMING/YELLING hydromorphone [From Dilaudid] AdvReac Intermediate Hallucinati Verified 09/25/22 06:18 ng morphine AdvReac Unknown unsure Verified 09/25/22 06:18 "might be okay to take" oxycodone [From Percocet] AdvReac Unknown unsure Verified 09/25/22 06:18 "might be okay to take" Home Medications Medication Instructions Recorded Confirmed Type atorvastatin 40 mg tablet 40 mg PO QPM 09/16/18 09/25/22 History calcium carbonate 600 mg-vitamin 1 cap PO QAM 09/16/18 09/25/22 History D3 5 mcg (200 unit) capsule (Calcium 600 + D(3)) hydralazine 100 mg tablet 100 mg PO BID 04/19/19 09/25/22 History amlodipine 10 mg tablet 10 mg PO QAM 10/10/20 09/25/22 History carvedilol 3.125 mg tablet 3.125 mg PO BID 10/10/20 09/25/22 History ascorbic acid (vitamin C) 500 mg 500 mg PO QAM 12/10/20 09/25/22 History tablet (Vitamin C) multivitamin 1 tab PO DAILY 12/10/20 09/25/22 History B-complex with vitamin C 1 tab PO QAM 02/17/21 09/25/22 History nitroglycerin 0.4 mg sublingual 0.4 mg sublingual DIRECTED PRN 03/30/21 09/25/22 History tablet Chest Pain pantoprazole 40 mg tablet,delayed 40 mg PO BID #60 tabs 04/01/21 09/25/22 Rx release albuterol sulfate 90 mcg/actuation 2 puff inhalation UD PRN Shortness 04/06/21 09/25/22 History aerosol inhaler Of Breath Or Wheezing furosemide 20 mg tablet 20 mg PO DAILY #90 tabs 06/16/22 09/25/22 Rx magnesium oxide 500 mg tablet 500 mg PO DAILY #30 tabs 06/16/22 09/25/22 Rx trazodone 50 mg tablet 50 mg PO HS PRN Sleep 06/16/22 09/25/22 History benzonatate 100 mg capsule 100 mg PO BID PRN Unknown 07/01/22 09/25/22 History lidocaine 4 % topical patch 1 patch topical DAILY PRN Pain 07/01/22 09/25/22 History tramadol 50 mg tablet 50 mg PO TID PRN pain #60 tabs 07/01/22 09/25/22 Rx levothyroxine 25 mcg tablet 25 mcg PO QAM #90 tabs 09/25/22 Rx vitamin E 50 unit capsule 50 unit PO DAILY 09/25/22 09/25/22 History Patient History Medical History Anemia Anemia due to GI blood loss AV fistula left arm>not using now AVM (arteriovenous malformation) AVM (arteriovenous malformation) of small bowel, acquired with hemorrhage Bereavement due to life event Blood in stool resolved Cardiac murmur Carotid stenosis, left Left carotid endarterectomy 11/2020 [facility] with [address] Love Chronic back pain Chronic kidney disease, stage 4 (severe) [facility] Bridget Martini Nephrology Chronic obstructive pulmonary disease inhaler/nebulizer prn Chronic obstructive pulmonary disease CKD (chronic kidney disease) stage 4, GFR 15-29 ml/min DVT prophylaxis Encounter for pre-operative examination GERD (gastroesophageal reflux disease) GI bleed Hemorrhagic gastritis Hx of gout Hyperlipidemia Hypertension Hypothyroidism Melena Mesenteric artery stenosis Peripheral arterial disease Renal artery stenosis Symptomatic anemia Tobacco use disorder Tobacco use disorder Surgical History History of bilateral cataract extraction History of carotid endarterectomy (12/10/20) [facility] with Dr Love History of carpal tunnel release of both wrists History of cholecystectomy History of colonoscopy 11/05/21 [facility] History of colonoscopy with polypectomy History of esophagogastroduodenoscopy (EGD) History of laminectomy lumbar History of repair of right rotator cuff History of tooth extraction all teeth removed Family History Mother Family history of diabetes mellitus Brother Family history of diabetes mellitus Sister Family history of diabetes mellitus Other No family history of adverse response to anesthesia Social History Smoking Status: Current every day smoker Tobacco Type: Cigarettes Age Started Using Tobacco: 20; Cigarettes Per Day: 20 PER DAY; Second Hand Exposure: Yes; Do You Dip or Chew Tobacco: No; Hx Alcohol Use: Yes Alcohol type: wine Hx Substance Use: No Preferred Language: Luxembourgish Communication Ability: Effective Hand Compositor Required: No Beliefs That Will Affect Care: None marital status: Current Living Situation: Alone current occupational status: 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 How many Children do You have: 2 Feels Safe at Home: Yes Childhood Exposure to Second-Hand Smoke: No Assistive Devices: Walker Review of Systems Constitutional: no fever Eyes: no worsening vision Ear, Nose, Mouth, Throat: no problem reported Respiratory: + cough, + change in sputum (white sputum production) and + dyspnea; no hemoptysis Cardiovascular: no chest pain Gastrointestinal: + abdominal pain (L upper quadrant) Genitourinary: no dysuria, no hematuria and no flank pain Integumentary: no rash Physical Exam Constitutional: + disheveled; not in distress Eyes: PERRL, conjunctivae normal, anicteric sclerae ENMT: external ear and nose normal, oropharynx normal Neck: trachea midline, no thyromegaly Respiratory: Auscultation: + diminished lung sounds (at bases bilaterally) Cardiovascular: Rate/Rhythm: regular rate and regular rhythm Heart Sounds: + murmur (harsh systolic murmur w/ radiation to carotids) Extremities: + edema (trace LE swelling) Gastrointestinal (Abdomen): normal bowel sounds, soft, nontender, no hepatosplenomegaly Skin: no rashes Results & Data Vital Signs (Past 12 Hours) Vital Signs Temp Pulse Pulse Resp BP BP Pulse Ox 10/12/22 08:36 36.7 C 68 20 185/52 H 96 10/12/22 06:31 10/12/22 06:20 70 16 155/80 H 94 10/12/22 05:46 71 18 174/62 H 94 10/12/22 04:26 80 10/12/22 04:11 74 18 178/76 H 93 10/11/22 22:31 78 10/12/22 03:10 74 18 173/63 H 95 10/12/22 01:34 78 20 171/51 H 93 10/12/22 00:15 67 22 167/53 H 95 10/11/22 23:37 67 20 170/74 H 95 10/11/22 23:11 95 10/11/22 22:36 95 10/11/22 22:36 65 30 H 160/65 H 94 10/11/22 22:18 37 C 60 17 170/75 H 95 O2 Del Method O2 Flow Rate 10/12/22 08:36 Nasal Cannula 10/12/22 06:31 Nasal Cannula 1 10/12/22 06:20 Nasal Cannula 1 10/12/22 05:46 Room Air 10/12/22 04:26 10/12/22 04:11 Nasal Cannula 1 10/11/22 22:31 10/12/22 03:10 Nasal Cannula 1 10/12/22 01:34 Room Air 10/12/22 00:15 Room Air 10/11/22 23:37 Room Air 10/11/22 23:11 Room Air 10/11/22 22:36 Room Air 0 10/11/22 22:36 Room Air 10/11/22 22:18 Room Air Laboratory Results Laboratory Tests 05/18/19 11/07/20 03/30/21 14:56 11:18 12:27 WBC Hgb Hct Plt Count Sodium Potassium Chloride Carbon Dioxide BUN Creatinine 2.79 H 2.81 H 3.47 H Glucose Calcium Phosphorus Alkaline Phosphatase Troponin I High Sens Albumin 06/05/21 02/19/22 07/01/22 11:20 08:47 14:20 WBC Hgb Hct Plt Count Sodium Potassium Chloride Carbon Dioxide BUN Creatinine 3.49 H 4.22 H 4.37 H Glucose Calcium Phosphorus Alkaline Phosphatase Troponin I High Sens Albumin 09/25/22 10/11/22 10/11/22 06:10 23:05 23:05 WBC 8.59 Hgb 8.3 L Hct 25.6 L Plt Count 197 Sodium 133 L Potassium 5.1 Chloride 105 Carbon Dioxide 18 L BUN 82 H Creatinine 4.69 H* 4.65 H* Glucose 85 Calcium 8.4 L Phosphorus 5.4 H Alkaline Phosphatase 120 H Troponin I High Sens 15.6 H Albumin 3.6 Diagnostic Findings 10/11/[address]: Kidneys and ureters - Right lower renal pole low- attenuation structure, stable in the interval measuring 1.8 cm and compatible with simple renal cyst. Multiple calcifications within the right kidney, largest measuring 2.6 mm suggestive of stones versus vascular etiology. Otherwise unremarkable right kidney with no hydronephrosis. Calcifications within the left kidney, largest measuring 6 mm suggestive of stones versus vascular etiology. Left lower renal pole low-attenuation structure measuring 1.4 cm, stable in the interval and most compatible with simple cyst. Otherwise normal left kidney. PG Care Time/CCT Total # of Minutes Spent Total Time Spent with Patient: Total time spent is greater than 50% in coordination of care (as documented) at patient's floor/unit and/or counseling patient: Coding Level of Care Code 92333 IN/OBS CONSULT LVL 5,80M Diagnoses LESLIE (acute kidney injury) N17.9 Chronic kidney disease, stage V N18.5 Pneumonia J18.9 Hypertension I10 Hypertension type: unspecified Cardiac murmur R01.1 Anemia D64.9 Anemia type: unspecified type (4) Hypertension Hypertension type: unspecified Qualified Code(s): I10 - Essential (primary) hypertension (6) Anemia Anemia type: unspecified type Qualified Code(s): D64.9 - Anemia, unspecified
[2022-10-12] MEDS: PANTOprazole 40 MG TAB PO SCH ×2 (09:08→19:59)
[2022-10-12] MEDS: carvediloL 3.125 MG TAB PO SCH ×2 (09:08→16:12)
[2022-10-12] MEDS: amLODIPine BESYLATE 5 MG TAB PO SCH (09:08)
[2022-10-12] MEDS: methylPREDNISolone 40 MG in SYRINGE 0 ML IV SCH ×2 (09:08→19:59)
[2022-10-12] MEDS: hydrALAZINE TAB 50 MG TAB PO SCH ×2 (09:08→20:00)
[2022-10-12] MEDS: cefTRIAXone SODIUM 2,000 MG in DEXTROSE 5% 50 ML IV SCH (09:09)
[2022-10-12] MEDS: HEPARIN SOD 5,000 UNIT/0.5 ML VIAL SQ SCH ×2 (09:09→20:05)
[2022-10-12] MEDS: POLYETHYLENE (MIRALAX) 17 GM PACK PO SCH (09:21)
[2022-10-12 09:25] LABS: Hematocrit (blood only) 27.2 % (37.0-47.0); Hemoglobin 8.8 g/dl (12.0-16.0); Mean Corpuscular Hemoglobin 30.2 pg (25.0-34.0); Mean Corpuscular Hgb Conc 32.4 g/dL (32.0-36.0); Mean Corpuscular Volume 93.5 fL (80.0-100.0); Mean Platelet Volume 9.2 fL (9.4-12.4); Platelet Count 214 K/uL (130-400); RDW Coefficient of Variation 18.7 % (11.5-14.5); RDW Standard Deviation 63.6 fL (36.4-46.3); Red Blood Count 2.91 M/uL (4.20-5.40); White Blood Count 4.35 K/ul (4.8-10.8)
[2022-10-12 09:47] LABS: BUN Creatinine Ratio 17.2 (10-20); Calcium 9.1 mg/dl (8.6-10.3); Creatinine Clr Calc Pharmacy 11.7 ml/min; Est GFR (African American) 10.3 ml/min; Est GFR (Non-African American) 8.9 ml/min; Potassium 5.2 mmol/L (3.5-5.1)
[2022-10-12 09:50] LABS: Albumin Level 3.7 gm/dl (3.4-5.0); Bilirubin Direct 0.1 mg/dl (0-0.2); Bilirubin,Total 0.6 mg/dl (0.2-1.0); Total Protein 6.3 gm/dl (6.0-8.3)
[2022-10-12 09:53] LABS: Troponin I High Sensitivity 17.2 pg/ml (0-14)
[2022-10-12] MEDS: ALBUT/IPRATROP 3MG/0.5MG NEB 3 ML VIAL NEB SCH ×3 (10:47→19:51)
[2022-10-12] MEDS: SENNA 8.6 MG TAB PO SCH (10:52)
[2022-10-12] MEDS ORDERED: SODIUM ZIRCONIUM CYCLOSILICATE 10 GM PACKET PO ONE (10:55)
--- NOTE | 2022-10-12 11:48 | Electrocardiogram Report ---
Test Reason : Blood Pressure : / mmHG Vent. Rate : 065 BPM Atrial Rate : 065 BPM P-R Int : 186 ms QRS Dur : 094 ms QT Int : 438 ms P-R-T Axes : -23 005 088 degrees QTc Int : 455 ms Normal sinus rhythm Poor R wave progression, consider anterior TX vs. lead placement vs. LVH Abnormal ECG When compared with ECG of 05-JUN-2022 15:33, Sinus rhythm has replaced Ectopic atrial rhythm Questionable change in initial forces of Septal leads Confirmed by Jonas Saha ([id number]) on 10/12/2022 11:48:12 AM Referred By: REFERRED SELF Confirmed By:Jonas Saha
[2022-10-12] MEDS: BENZONATATE 100 MG CAPSULE PO PRN (12:38)
[2022-10-12] MEDS: SODIUM BICARBONATE 650 MG TAB PO SCH (13:03)
[2022-10-12] MEDS: BUMETANIDE 1 MG TAB PO SCH (13:03)
--- NOTE | 2022-10-12 15:34 | Hospitalist Progress Note ---
Date of Service October 12, 2022 Assessment & Plan (1) Pneumonia: Plan: Patient presents to ED with complaints of worsening shortness of breath with cough symptoms and upper abdominal discomfort Further evaluation in the ED shows CT findings indicating bilateral pleural e ffusion with basilar consolidation suspicious for pneumonia Community-acquired pneumonia-continue ceftriaxone and azithromycin Continue supplemental oxygen with pulse oximetry monitoring Bronchodilators as needed Tessalon Perles as needed for cough Add on steroids Solu-Medrol 40 Mg IV twice daily for wheezing and COPD exacerbation Follow chest x-ray to resolution (2) COPD exacerbation: Plan: Patient has a history of known COPD with ongoing smoking history Smoking cessation Continue bronchodilators with nebulizer treatments Continue IV steroids (3) Chronic kidney disease, stage 4 (severe): Plan: Patient presents with serum creatinine of 4.65 Avoid nephrotoxins and NSAIDs Patient has underlying anemia likely secondary to CKD Monitor input output status closely Consult nephrology appreciated change Lasix from home to Bumex 1 mg p.o. once daily Start sodium bicarbonate tablets 650 Mg p.o. twice daily Give 1 dose of Lokelma for hyperkalemia Follow BMP Has fistula in left upper extremity-it is not mature at this time (4) Cardiac murmur: Plan: Loud murmur heard at the apex Check echocardiogram (5) Anemia: Plan: Patient hemoglobin of 8.3 no evidence of ongoing GI bleed Patient also has underlying chronic kidney disease and this could be secondary to CKD Trend hemoglobin levels Check iron studies, B12, folate in the morning TSH here is normal Follow CBC Check Hemoccult stool (6) Hypertension: Plan: Blood pressure is fairly well controlled Continue amlodipine 10 mg daily along with carvedilol 3.125 mg with hold parameters and hydralazine Monitor blood pressure (7) Constipation: Plan: With abdominal pain left-sided chronic for 1 year, CT abdomen/pelvis with questionable pancreatitis but lipase is normal x2, LFTs normal Suspect pain is from constipation-add on senna and daily MiraLAX (8) Abdominal pain: Plan: As above, most likely due to constipation (9) Hyperkalemia: Plan: As above (10) Hyponatremia: Plan: As above (11) GERD (gastroesophageal reflux disease): Plan: Continue PPI therapy with Protonix 40 mg daily (12) Hypothyroidism: Plan: Continue levothyroxine 25 MCG g daily TSH is normal (13) Hyperlipidemia: Plan: Continue atorvastatin 40 mg daily Plan DVT prophylaxis-heparin SQ Disposition-continued stay Admission and Anticipated Discharge Date Admission Date: October 12, 2022 Subjective Patient reports not feeling very well just yet. Still coughing a lot. The pain in the upper left abdomen and lower left abdomen is the same and chronic for almost a year. She reports she does move her bowels almost daily and does not understand why she could be constipated based on x-rays. She does see hematology and has frequent Epogen and IV iron injections No bleeding from anywhere that she knows of. She did have 2 bowel movements today so far I discussed her care with nephrology. Physical Exam Constitutional: WD/WN, vitals as above Neck: trachea midline, no thyromegaly Respiratory: normal respiratory effort and + cough Auscultation: + diminished lung sounds (At bases) and + wheezes; no crackles and no rhonchi Cardiovascular: Rate/Rhythm: regular rate and regular rhythm Heart Sounds: + murmur (3/6 systolic murmur heard best at the apex) Extremities: no edema Chest (Breasts): Chest: normal inspection of chest Gastrointestinal (Abdomen): normal bowel sounds, soft, nontender, no hepatosplenomegaly Musculoskeletal: Extremities: extremities normal to inspection; no cyanosis and no clubbing Skin: no rashes, warm and dry Neurologic: moves all extremities and awake; no focal motor deficits Psychiatric: A+Ox3, euthymic affect Lymphatic: no lymphedema Results & Data Results & Data Vital Signs (Past 12 Hours) Vital Signs Temp Pulse Pulse Resp BP BP Pulse Ox 10/12/22 15:15 70 20 97 10/12/22 12:41 69 24 94 10/12/22 12:41 154/66 H 10/12/22 12:00 92 H 20 10/12/22 11:00 62 10/12/22 10:47 64 20 96 10/12/22 08:30 10/12/22 09:00 66 10/12/22 08:45 66 24 97 10/12/22 08:34 185/52 H 10/12/22 08:34 68 23 94 10/12/22 08:33 180/79 H 10/12/22 08:33 117 H 27 H 93 10/12/22 08:32 67 19 10/12/22 08:36 36.7 C 68 20 185/52 H 96 10/12/22 06:31 10/12/22 06:20 70 16 155/80 H 94 10/12/22 05:46 71 18 174/62 H 94 10/12/22 04:26 80 10/12/22 04:11 74 18 178/76 H 93 O2 Del Method O2 Flow Rate 10/12/22 15:15 Nasal Cannula 1 10/12/22 12:41 Nasal Cannula 1 10/12/22 12:41 10/12/22 12:00 10/12/22 11:00 10/12/22 10:47 Nasal Cannula 1 10/12/22 08:30 Nasal Cannula 1 10/12/22 09:00 10/12/22 08:45 Nasal Cannula 1 10/12/22 08:34 10/12/22 08:34 10/12/22 08:33 10/12/22 08:33 10/12/22 08:32 10/12/22 08:36 Nasal Cannula 10/12/22 06:31 Nasal Cannula 1 10/12/22 06:20 Nasal Cannula 1 10/12/22 05:46 Room Air 10/12/22 04:26 10/12/22 04:11 Nasal Cannula 1 Laboratory Results CBC, BMP, LFTs, lipase, troponin, TSH all reviewed PG Care Time/CCT Total # of Minutes Spent Total Time Spent with Patient: Total time spent is greater than 50% in coordination of care (as documented) at patient's floor/unit and/or counseling patient: Coding Level of Care Code 80120 SUB INP/OBS CARE 3/50MIN Diagnoses Pneumonia J18.9 COPD exacerbation J44.1 Chronic kidney disease, stage 4 (severe) N18.4 Cardiac murmur R01.1 Anemia D64.9 Anemia type: unspecified type Hypertension I10 Hypertension type: unspecified Constipation K59.00 Abdominal pain R10.9 Hyperkalemia E87.5 Hyponatremia E87.1 GERD (gastroesophageal reflux disease) K21.9 Hypothyroidism E03.9 Hyperlipidemia E78.5 (5) Anemia Anemia type: unspecified type Qualified Code(s): D64.9 - Anemia, unspecified (6) Hypertension Hypertension type: unspecified Qualified Code(s): I10 - Essential (primary) hypertension
[2022-10-12] MEDS: NICOTINE 21 MG/24 HR TDSY TD SCH (16:12)
[2022-10-12] MEDS ORDERED: COUGH DROP (SUGAR FREE) LOZ 24 LOZ/1 BOX BUCCAL PRN (18:46)
[2022-10-12] MEDS: ATORVASTATIN 40 MG TAB PO SCH (19:59)
[2022-10-13] MEDS: traMADol HCL 50 MG TABLET PO PRN ×3 (05:37→22:01)
[2022-10-13] MEDS: BENZONATATE 100 MG CAPSULE PO PRN (05:37)
[2022-10-13] MEDS: LEVOTHYROXINE SODIUM 25 MCG TABLET PO SCH (05:40)
[2022-10-13] MEDS: ALBUT/IPRATROP 3MG/0.5MG NEB 3 ML VIAL NEB SCH ×4 (07:15→19:23)
[2022-10-13 07:49] LABS: Hematocrit (blood only) 22.5 % (37.0-47.0); Hemoglobin 7.3 g/dl (12.0-16.0); Mean Corpuscular Hemoglobin 30.2 pg (25.0-34.0); Mean Corpuscular Hgb Conc 32.4 g/dL (32.0-36.0); Mean Platelet Volume 9.4 fL (9.4-12.4); Platelet Count 191 K/uL (130-400); RDW Coefficient of Variation 18.2 % (11.5-14.5); RDW Standard Deviation 61.6 fL (36.4-46.3); Red Blood Count 2.42 M/uL (4.20-5.40)
--- NOTE | 2022-10-13 08:37 | Nephrology Progress Note ---
Date of Service October 13, 2022 Assessment & Plan (1) LESLIE (acute kidney injury): Plan: * LESLIE/CKD vs progressive CKD in the setting of mild CHF, pneumonia * Pulmonary exam has improved. Cr is trending up. Will hold Bumex * Continue NaHCO3 650 mg po daily for correction of metabolic acidosis * AVF + bruit but venous limb is difficult to palpate. 09/25/22 fistulogram report reviewed - no central stenosis, patent cephalic and central veins * Volume status and electrolyte balance are currently acceptable. No pericardial rub. No acute indication for HD at this time * Monitor PRP, UO (2) Chronic kidney disease, stage V: Plan: * 08/13 Baseline Cr 3.98 w/ EGFR 11 cc/min. Renal impairment is on the basis of renal vascular disease. 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 Bridget Martini at [facility] [place] * L forearm AVF created 03/[address] 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 09/29/22 OV note reviewed - consider Octreotide therapy (4) Pneumonia: Plan: * On Azithromycin, Ceftriaxone and Solumedrol for COPD exacerbation/pneumonia (5) Cystitis: Plan: * 10/13 urine culture + for E. Coli. Currently on Ceftriaxone therapy (6) Hypertension: Plan: * Continue amlodipine, carvedilol, hydralazine (7) Cardiac murmur: Plan: * Will order transthoracic echocardiogram Admission and Anticipated Discharge Date Admission Date: October 12, 2022 Subjective Ms. Chapin was evaluated in her hospital room this morning. Her primary concern is intense LUQ abdominal pain following meals. She reports that it limits her ability to take deep breaths. Ms. Chapin denies uremic symptoms or overt blood loss Review of Systems Constitutional: no fever Eyes: no worsening vision Ear, Nose, Mouth, Throat: no problem reported Respiratory: + dyspnea Cardiovascular: no chest pain Gastrointestinal: + abdominal pain (L upper quadrant) Genitourinary: no dysuria, no hematuria and no flank pain Integumentary: no rash Physical Exam Constitutional: + disheveled; not in distress Eyes: PERRL, conjunctivae normal, anicteric sclerae ENMT: external ear and nose normal, oropharynx normal Neck: trachea midline, no thyromegaly Respiratory: Auscultation: + diminished lung sounds (at bases bilaterally) Cardiovascular: Rate/Rhythm: regular rate and regular rhythm Heart Sounds: + murmur (harsh systolic murmur w/ radiation to carotids) Extremities: + edema (trace LE swelling) L BC AVF + bruit. Venous limb is difficult to palpate Gastrointestinal (Abdomen): normal bowel sounds, soft, nontender, no hepatosplenomegaly Skin: no rashes Results & Data Vital Signs (Past 12 Hours) Vital Signs Temp Pulse Pulse Resp BP Pulse Ox O2 Del Method 10/13/22 07:26 65 20 98 Nasal Cannula 10/13/22 07:11 36.6 C 65 20 165/65 H 99 Nasal Cannula 10/13/22 04:00 70 168/64 H 10/13/22 03:25 36.8 C 65 18 184/68 H 97 Room Air 10/12/22 23:00 64 10/12/22 23:14 63 145/57 H 10/12/22 22:51 Room Air 10/12/22 22:33 36.8 C 69 22 189/67 H 96 Room Air O2 Flow Rate 10/13/22 07:26 2 10/13/22 07:11 3 10/13/22 04:00 10/13/22 03:25 10/12/22 23:00 10/12/22 23:14 10/12/22 22:51 10/12/22 22:33 Laboratory Results Laboratory Tests 10/11/22 10/12/22 10/12/22 22:59 09:07 16:04 WBC Hgb 8.8 L Hct Plt Count Sodium Potassium Chloride Carbon Dioxide BUN Creatinine Est GFR (Non-Af Amer) Transferrin % Sat Ferritin Stool Occult Bld Scrn Negative SARS-CoV-2, RNA, NAAT NEGATIVE 10/13/22 10/13/22 06:56 06:56 WBC 5.00 Hgb 7.3 L Hct 22.5 L Plt Count 191 Sodium 131 L Potassium 5.0 Chloride 102 Carbon Dioxide 18 L BUN 83 H Creatinine 4.70 H* Est GFR (Non-Af Amer) 8.4 Transferrin % Sat 27 Ferritin 152.2 Stool Occult Bld Scrn SARS-CoV-2, RNA, NAAT PG Care Time/CCT Total # of Minutes Spent Total Time Spent with Patient: Total time spent is greater than 50% in coordination of care (as documented) at patient's floor/unit and/or counseling patient: Coding Level of Care Code 94218 SUB INP/OBS CARE 3/50MIN Diagnoses LESLIE (acute kidney injury) N17.9 Chronic kidney disease, stage V N18.5 Anemia D64.9 Anemia type: unspecified type Pneumonia J18.9 Cystitis N30.90 Hypertension I10 Hypertension type: unspecified Cardiac murmur R01.1 (3) Anemia Anemia type: unspecified type Qualified Code(s): D64.9 - Anemia, unspecified (6) Hypertension Hypertension type: unspecified Qualified Code(s): I10 - Essential (primary) hypertension
[2022-10-13] MEDS: hydrALAZINE TAB 50 MG TAB PO SCH ×2 (08:39→20:45)
[2022-10-13] MEDS: carvediloL 3.125 MG TAB PO SCH ×2 (08:39→16:52)
[2022-10-13] MEDS: SODIUM BICARBONATE 650 MG TAB PO SCH (08:39)
[2022-10-13] MEDS: amLODIPine BESYLATE 5 MG TAB PO SCH (08:39)
[2022-10-13] MEDS: SENNA 8.6 MG TAB PO SCH (08:39)
[2022-10-13] MEDS: PANTOprazole 40 MG TAB PO SCH ×2 (08:39→20:45)
[2022-10-13] MEDS: BUMETANIDE 1 MG TAB PO SCH (08:40)
[2022-10-13] MEDS: POLYETHYLENE (MIRALAX) 17 GM PACK PO SCH (08:40)
[2022-10-13] MEDS: methylPREDNISolone 40 MG in SYRINGE 0 ML IV SCH ×2 (08:40→20:45)
[2022-10-13] MEDS: HEPARIN SOD 5,000 UNIT/0.5 ML VIAL SQ SCH ×2 (08:40→20:45)
[2022-10-13] MEDS: NICOTINE 21 MG/24 HR TDSY TD SCH (08:40)
[2022-10-13] MEDS: cefTRIAXone SODIUM 2,000 MG in DEXTROSE 5% 50 ML IV SCH (08:41)
[2022-10-13 08:44] LABS: BUN Creatinine Ratio 17.7 (10-20); Calcium 8.8 mg/dl (8.6-10.3); Est GFR (African American) 9.7 ml/min; Est GFR (Non-African American) 8.4 ml/min
[2022-10-13 08:45] LABS: Ferritin 152.2 ng/ml (8-388)
[2022-10-13] MEDS ORDERED: AZITHROMYCIN 250 MG TAB PO SCH (09:00)
[2022-10-13] MEDS ORDERED: IRON SUCROSE 300 MG in SODIUM CHLORIDE 0.9% 250 ML IV ONE (10:00)
[2022-10-13] MEDS ORDERED: EPOETIN ALFA 10,000 UNITS/ML VIAL SQ ONE (10:01)
--- NOTE | 2022-10-13 15:10 | XCELERA ---
[id number]
--- NOTE | 2022-10-13 16:42 | Hospitalist Progress Note ---
Date of Service October 13, 2022 Assessment & Plan (1) Left sided abdominal pain: Plan: Patient has had EXTENSIVE work-up for her abdominal complaints as delineated in this note. Follows closely with Kathi ENGEL at [facility]. Numerous CTs a/p, capsule endo, colonoscopy, small bowel follow-through studies, etc. Constipation has been noted on most studies, but this would not cause weight loss nor the severity of her post-prandial complaints. Of note - 2020 MRA abdomen showed the following - "Focal stenosis of approximately 80% at the origin of the celiac artery. There is also focal stenosis of approximately 70% at the origin of the superior mesenteric artery. There are focal areas of high-grade stenosis within the bilateral proximal renal arteries measuring approximately 80% on the left and 90% on the right. The mid to distal superior mesenteric artery appears patent. The common hepatic artery is likely patent." Her history is very concerning for recurrent episodes of mesenteric ischemia. Unfortunately cannot perform CTA due to advanced CKD. Thus, will repeat MRA abdomen and go from there. If there is ischemia perhaps transfusing for higher H/H may help symptoms. Downgrade diet to clears. Likely needs vascular surgery evaluation. (2) Pneumonia: Plan: b/l basilar Cont ceftriaxone Change zithromax to doxy due to CKD and potential for QT prolongation Continue supplemental oxygen prn Bronchodilators as needed Tessalon Perles as needed for cough Cont Solu-Medrol 40 Mg IV twice daily (3) COPD exacerbation: Plan: Cont steroids Cont bronchodilators NC O2 to keep sats 90-92% (4) Chronic kidney disease, stage V: Plan: baseline CrCl <15 baseline creatinine has been 4 to 4.5 up until a few weeks ago and now is in the 4.5 to 5 range has left arm fistula but it is not mature at this time in the event HD is needed Dr Bauer is following from [facility] neph[facility] - appreciate his assistance daily BMP while here cont NaBicarb daily (5) Anemia: Plan: 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 B12, folate, Fe studies adequate TSH wnl Heme neg stool in light of #1 and concern for mesenteric ischemia Tx 1 unit PRBCs today repeat BMP am follows with Maria D BARTON in the [facility] office for chronic procrit & anemia management (6) Hypertension: Plan: Continue amlodipine 10 mg daily along with carvedilol 3.125 mg BID (7) Constipation: Plan: see #1 above constipation will certainly contribute to pain, but won't cause weight loss, fear of eating, and the magnitude of her pains with that said cont on bowel maintenance (8) Hyperkalemia: Plan: 2nd to CKD stage 5 improved today BMP am (9) Hyponatremia: Plan: 2nd to CKD stage 5 BMP am (10) GERD (gastroesophageal reflux disease): Plan: PPI (11) Hypothyroidism: Plan: Continue levothyroxine 25 MCG g daily TSH is normal (12) Hyperlipidemia: Plan: Continue atorvastatin 40 mg daily (13) Aortic stenosis: Plan: severe with valve area <1cm^2 s2 clearly heard no signs it is causing hemodynamic issues or symptoms [id number] this will need to be addressed in the future patient made aware of her today (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, acquired with hemorrhage: Plan: known intestinal AVMs as seen on capsule endoscopy earlier this year (15) Mesenteric artery stenosis: Plan: see #1 above Plan DVT prophylaxis-heparin SQ 5000 BID Daughter updated by phone this evening Admission and Anticipated Discharge Date Admission Date: October 12, 2022 Subjective patient complains of ongoing, intermittent, severe abdominal pains present for several months precipitated by eating solids but not liquids within minutes of eating she has pain in the entire left side of her abdomen and travels up to the left costal margin - "it takes my breath away" she is afraid to eat for fear of precipitating the pain she has lost 15-20 pounds over the last few months due to such burping & passing flatus helps her symptoms follows with Kathi Bland at [facility] [place] has had extensive testing at various institutions including via the [facility], [facility] system, [facility] system this list is just a portion of most recent testing --- just had visit to [facility] last week for the same abd pain underwent CT a/p - no acute findings except constipation was given what sounds like enema had relief of pain for about 1 day then pain returned upper GI series with small bowel follow-through showed considerable constipation capsule endoscopy showed numerous AVMs throughout the small bowel however, she denies any recent melena or BRBPR she has been using miralax twice daily at recommendation of [facility] without relief of symptoms tele overnight wnl Review of Systems Review of Systems: gen - weight loss over the last few months to year cv - no chest pains despite GI symptoms pulm - active smoker with some cough; abd pain "takes her breath away" GI - no vomiting despite the abd pain; no RUQ pain Physical Exam Physical Exam: gen - anxious due to the ongoing abdominal issues, otherwise NAD mouth - MMM neck - mild JVD noted heart - 2/6 holosystolic murmur RUSB, s1 s2 both clearly heard, RRR lungs - wheezes b/l abd - soft, no peritoneal signs, BS+, no HSM, minimal tenderness LUQ/LLQ ext - no edema, pulses 2+ b/l psych - a/o x 3 skin - pallor Results & Data Results & Data Vital Signs (Past 12 Hours) Vital Signs Temp Pulse Resp BP Pulse Ox O2 Del Method O2 Flow Rate 10/13/22 15:30 71 20 96 Nasal Cannula 2 10/13/22 15:21 36.8 C 69 19 162/56 H 97 Nasal Cannula 2 10/13/22 11:44 36.8 C 65 19 144/65 H 95 Nasal Cannula 1 10/13/22 08:00 Nasal Cannula 2 10/13/22 07:26 65 20 98 Nasal Cannula 2 10/13/22 07:11 36.6 C 65 20 165/65 H 99 Nasal Cannula 3 Laboratory Results Laboratory Results - last 24 hr 10/11/22 10/13/22 10/13/22 23:06 06:56 06:56 WBC RBC Hgb Hct MCV MCH MCHC RDW Std Deviation RDW Coeff of Kris Plt Count MPV Sodium 131 L Potassium 5.0 Chloride 102 Carbon Dioxide 18 L Anion Gap 11 BUN 83 H Creatinine 4.70 H* Est Cr Clr Drug Dosing 11.0 Est GFR ( Amer) 9.7 Est GFR (Non-Af Amer) 8.4 BUN/Creatinine Ratio 17.7 Glucose 144 H Calcium 8.8 Iron 60 TIBC 223 L Unsaturated IBC 163 Transferrin % Sat 27 Ferritin 152.2 Vitamin B12 999 H Folate 9.99 Blood Type O Positive Antibody Screen NEGATIVE Crossmatch See Detail PG Care Time/CCT Total # of Minutes Spent Total Time Spent with Patient: Total time spent is greater than 50% in coordination of care (as documented) at patient's floor/unit and/or counseling patient: Coding Level of Care Code 10058 SUB INP/OBS CARE MIN Diagnoses Left sided abdominal pain R10.9 Pneumonia J18.9 COPD exacerbation J44.1 Chronic kidney disease, stage V N18.5 Anemia D64.9 Anemia type: unspecified type Hypertension I10 Hypertension type: unspecified Constipation K59.00 Hyperkalemia E87.5 Hyponatremia E87.1 GERD (gastroesophageal reflux disease) K21.9 Hypothyroidism E03.9 Hyperlipidemia E78.5 Aortic stenosis I35.0 AVM (arteriovenous malformation) of small bowel, acquired with hemorrhage K55.21 Mesenteric artery stenosis K55.1 (5) Anemia Anemia type: unspecified type Qualified Code(s): D64.9 - Anemia, unspecified (6) Hypertension Hypertension type: unspecified Qualified Code(s): I10 - Essential (primary) hypertension
[2022-10-13] MEDS ORDERED: SODIUM CHLORIDE 0.9% 250 ML IV PRN (16:43)
[2022-10-13] MEDS: ATORVASTATIN 40 MG TAB PO SCH (20:45)
[2022-10-14] MEDS: LEVOTHYROXINE SODIUM 25 MCG TABLET PO SCH (05:51)
--- NOTE | 2022-10-14 06:08 | Magnetic Resonance Report ---
Exam(s): MRA ABDOMEN Without Contrast EXAM: MR Angiography Abdomen With Intravenous Contrast CLINICAL HISTORY: Reason for exam: post-prandial abd pain, ischemia?. TECHNIQUE: Magnetic resonance angiography images of the abdomen with intravenous contrast. MIP reconstructed images were created and reviewed. COMPARISON: No relevant prior studies available. FINDINGS: Patent celiac artery, and superior mesenteric artery, without any stenosis. The proximal right inferior mesenteric artery is occluded with reconstitution of the artery approximately a centimeter beyond its origin. Atherosclerotic irregularity seen in the abdominal aortic wall the caliber of which measures up to 2.6 cm in diameter. IMPRESSION: 1. No evidence of superior mesenteric artery stenosis or occlusion 2. Occluded proximal most inferior mesenteric artery with reconstitution through collateral circulation Electronically signed by: Kamlesh Hodge MD 10/14/22 06:08 AM
[2022-10-14] MEDS: ALBUT/IPRATROP 3MG/0.5MG NEB 3 ML VIAL NEB SCH ×4 (07:43→19:23)
[2022-10-14 07:50] LABS: Hematocrit (blood only) 30.9 % (37.0-47.0); Hemoglobin 10.3 g/dl (12.0-16.0); Mean Corpuscular Hemoglobin 30.7 pg (25.0-34.0); Mean Corpuscular Hgb Conc 33.3 g/dL (32.0-36.0); Mean Platelet Volume 9.5 fL (9.4-12.4); Platelet Count 220 K/uL (130-400); RDW Coefficient of Variation 17.3 % (11.5-14.5); RDW Standard Deviation 57.6 fL (36.4-46.3); Red Blood Count 3.36 M/uL (4.20-5.40); White Blood Count 7.97 K/ul (4.8-10.8)
[2022-10-14 07:52] LABS: BUN Creatinine Ratio 17.6 (10-20); Calcium 9.2 mg/dl (8.6-10.3); Creatinine Clr Calc Pharmacy 10.2 ml/min; Est GFR (African American) 8.8 ml/min; Est GFR (Non-African American) 7.6 ml/min; Potassium 5.5 mmol/L (3.5-5.1)
--- NOTE | 2022-10-14 08:31 | Nephrology Progress Note ---
Date of Service October 14, 2022 Assessment & Plan (1) LESLIE (acute kidney injury): Plan: * LESLIE/CKD vs progressive CKD in the setting of mild CHF, pneumonia * I&O not measured overnight * Cr 5.07 w/ EGFR 7 cc/min, serum K 5.5, HCO3 19 * Will stop NaHCO3 supplement * HD indicated at this time due to volume overload (pleural effusions), hyperkalemia, metabolic acidosis and progressive azotemia. I have spoken w/ hospitalist MD. They would like to pursue abdominal CT w/ contrast to better assess mesenteric vascular supply. Indications/benefits/risks to HD discussed w/ patient and her daughter this am. They have also discussed this with Dr. Martini at [facility] via telephone. Ms. Chapin is agreeable to starting HD. * HD direct support staff has evaluated L BC AVF. They will attempt cannulation today using 17g needles * Monitor PRP, UO (2) Chronic kidney disease, stage V: Plan: * 08/13 Baseline Cr 3.98 w/ EGFR 11 cc/min. Renal impairment is on the basis of renal vascular disease. Primary Irrigation Equipment Mechanic has been Dr. Bridget Martini at [facility] * L forearm AVF created 03/[address] Love (3) Abdominal pain: Plan: * 10/13/22 Abdominal MRA (no contrast) - no evidence of SMA stenosis/occlusion. Inferior mesenteric artery has proximal occlusion w/ reconstitution through collateral circulation (4) Anemia: Plan: * h/o multiple duodenal & jejunal AVM with recurrent UGI bleed * 10/12 FOBT was negative * Iron saturation 27%, ferritin 152 * Venofer 300 mg IV given 10/13/22 * Epogen 10,000 units SQ given 10/13/22 * Recommend consultation w/ [facility] as patient is known to them and has recurrent LUQ abdominal pain. 09/29/22 OV note reviewed - consider Octreotide therapy (5) Pneumonia: Plan: * On Doxycycline, Ceftriaxone and Solumedrol for COPD exacerbation/pneumonia (6) Cystitis: Plan: * 10/13 urine culture + for E. Coli. Currently on Ceftriaxone therapy (7) Hypertension: Plan: * Continue amlodipine, carvedilol, hydralazine (8) Cardiac murmur: Plan: * 10/13/22 Echocardiogram: LVEF 60-65%, severe aortic stenosis Admission and Anticipated Discharge Date Admission Date: October 12, 2022 Subjective Ms. Chapin was evaluated in her hospital room this morning. Her daughter (Svetlana) was present at bedside. Ms. Chapin continues to experience LUQ abdominal pain following meals. Ms. Chapin and her daughter have spoken w/ their primary Irrigation Equipment Mechanic (Dr. Bridget Martini [facility]) and are agreeable to starting HD if needed Review of Systems Constitutional: no fever Eyes: no worsening vision Ear, Nose, Mouth, Throat: no problem reported Respiratory: + dyspnea Cardiovascular: no chest pain Gastrointestinal: + abdominal pain (L upper quadrant) Genitourinary: no dysuria, no hematuria and no flank pain Integumentary: no rash Physical Exam Constitutional: + disheveled; not in distress Eyes: PERRL, conjunctivae normal, anicteric sclerae ENMT: external ear and nose normal, oropharynx normal Neck: trachea midline, no thyromegaly Respiratory: Auscultation: + diminished lung sounds (at bases bilaterally) Cardiovascular: Rate/Rhythm: regular rate and regular rhythm Heart Sounds: + murmur (harsh systolic murmur w/ radiation to carotids) Extremities: + edema (trace LE swelling) Gastrointestinal (Abdomen): normal bowel sounds, soft, nontender, no hepatosplenomegaly Skin: no rashes Results & Data Vital Signs (Past 12 Hours) Vital Signs Temp Pulse Pulse Resp BP BP Pulse Ox 10/14/22 07:08 36.6 C 64 19 182/72 H 98 10/14/22 03:34 36.5 C 64 18 150/57 H 95 10/13/22 23:48 36.5 C 70 18 159/66 H 96 10/13/22 23:12 66 10/13/22 21:45 36.7 C 64 22 176/70 H 97 10/13/22 20:45 37.0 C 66 18 178/61 H 98 O2 Del Method O2 Flow Rate 10/14/22 07:08 Nasal Cannula 4.0 10/14/22 03:34 Nasal Cannula 4 10/13/22 23:48 Nasal Cannula 4 10/13/22 23:12 10/13/22 21:45 10/13/22 20:45 2 Laboratory Results Laboratory Tests 10/13/22 10/14/22 10/14/22 06:56 06:26 06:26 WBC 7.97 Hgb 7.3 L 10.3 L D Hct 30.9 L Plt Count 220 Sodium 130 L Potassium 5.5 H Chloride 99 BUN 89 H Creatinine 5.07 H* D Glucose 130 H PG Care Time/CCT Total # of Minutes Spent Total Time Spent with Patient: Total time spent is greater than 50% in coordination of care (as documented) at patient's floor/unit and/or counseling patient: Coding Level of Care Code 37726 SUB INP/OBS CARE 3/50MIN Diagnoses LESLIE (acute kidney injury) N17.9 Chronic kidney disease, stage V N18.5 Abdominal pain R10.9 Anemia D64.9 Anemia type: unspecified type Pneumonia J18.9 Cystitis N30.90 Hypertension I10 Hypertension type: unspecified Cardiac murmur R01.1 (4) Anemia Anemia type: unspecified type Qualified Code(s): D64.9 - Anemia, unspecified (7) Hypertension Hypertension type: unspecified Qualified Code(s): I10 - Essential (primary) hypertension
[2022-10-14] MEDS ORDERED: SODIUM ZIRCONIUM CYCLOSILICATE 10 GM PACKET PO STA (08:34)
[2022-10-14] MEDS ORDERED: FUROSEMIDE 40 MG/4 ML VIAL IV STA (08:35)
[2022-10-14] MEDS: HEPARIN SOD 5,000 UNIT/0.5 ML VIAL SQ SCH ×2 (09:33→21:13)
[2022-10-14] MEDS: SODIUM BICARBONATE 650 MG TAB PO SCH (09:33)
[2022-10-14] MEDS: NICOTINE 21 MG/24 HR TDSY TD SCH (09:36)
[2022-10-14] MEDS: amLODIPine BESYLATE 5 MG TAB PO SCH (09:37)
[2022-10-14] MEDS: carvediloL 3.125 MG TAB PO SCH ×2 (09:39→16:42)
[2022-10-14] MEDS: methylPREDNISolone 40 MG in SYRINGE 0 ML IV SCH ×2 (09:39→21:28)
[2022-10-14] MEDS: cefTRIAXone SODIUM 2,000 MG in DEXTROSE 5% 50 ML IV SCH (09:39)
[2022-10-14] MEDS: PANTOprazole 40 MG TAB PO SCH ×2 (09:40→21:13)
[2022-10-14] MEDS: DOXYCYCLINE HYCLATE 100 MG CAP PO SCH ×2 (09:40→21:13)
[2022-10-14] MEDS: hydrALAZINE TAB 50 MG TAB PO SCH ×2 (09:41→21:13)
[2022-10-14] MEDS: POLYETHYLENE (MIRALAX) 17 GM PACK PO SCH (10:03)
[2022-10-14] MEDS ORDERED: SODIUM CHLORIDE 0.9% 1000ML 1,000 ML IV PRN (11:40)
[2022-10-14] MEDS: SENNA 8.6 MG TAB PO SCH (11:55)
[2022-10-14] MEDS ORDERED: OPTIRAY 320 500ml IV ONE (18:40)
[2022-10-14] MEDS: BENZONATATE 100 MG CAPSULE PO PRN (19:01)
--- NOTE | 2022-10-14 19:16 | CT Scan Report ---
CT angio abd pelvis wo/w con CLINICAL HISTORY: Mesenteric ischemia. Abdominal pain. COMPARISON STUDY: CT of the abdomen and pelvis October 12, 2022 and MRA of the abdomen October 13, 2022. TECHNIQUE: Unenhanced and arterial phase imaging of the abdomen and pelvis was performed. Intravenous injection of 103 cc of Optiray 320 IV was uneventful. Sagittal and coronal reconstructions were view ed as well as maximal intensity projections on an independent 3-D workstation. Automated exposure con trol was utilized for the study. A dose lowering technique was utilized adhering to the principles o f ALARA. FINDINGS: Small bilateral pleural effusions have increased in size since prior CT. Subpleural opaciti es favor atelectasis. Interlobular septal thickening within the lower lungs indicates pulmonary edema . There is anasarca. No pneumatosis, free air or portal venous gas is present. Arterial phase images of the liver, spleen, adrenal glands and pancreas are unremarkable. Moderate right and marked left re nal atrophy is noted. There is no hydronephrosis. Calcifications within the left renal sinus are vasc ular in etiology. There may be several small nonobstructing right renal calculi. There are no uretera l calculi. There is no evidence for a bowel obstruction. No bowel wall thickening is identified on th is exam. The caliber of the abdominal aorta is normal. There is extensive plaque within the abdominal aorta an d branch vessels. There is 70% stenosis at the origin the celiac axis. There is 40% stenosis at the o rigin of the superior mesenteric artery. There are mild multifocal stenoses within the mid to distal superior mesenteric artery. The proximal inferior mesenteric artery is occluded with immediate recons titution. There is mild stenosis of the bilateral external iliac arteries. There is moderate stenosis of the visualized proximal bilateral superficial femoral arteries. IMPRESSION: 1. Extensive plaque within the abdominal aorta. Severe (70%) short segment stenosis at the origin of the celiac axis. Mild to moderate (40%) stenosis at the origin of the superior mesenteric artery. Add itional mild multifocal stenoses within the superior mesenteric artery. Short segment occlusion with immediate reconstitution of the inferior mesenteric artery. 2. No evidence for a bowel obstruction. No bowel wall thickening identified. 3. Interlobular septal thickening within the lower lungs consistent with pulmonary edema. Mild anasar ca. ACT 112: Negative or not required by law. Electronically signed by: Conor Glasgow M.D. 10/14/2022 7:13 PM
[2022-10-14] MEDS: ATORVASTATIN 40 MG TAB PO SCH (21:13)
--- NOTE | 2022-10-14 21:51 | Hospitalist Progress Note ---
Date of Service October 14, 2022 Assessment & Plan (1) Celiac artery stenosis: Plan: Suspect that recurrent, persistent/worsening, post-prandial abdominal pain with weight loss over the last few months is due to this. At minimum the celiac artery is 80% stenosed based on past and current imaging (CTA a/p performed today - see report in this note). Formal consult placed to Dr Love for further recommendations. Care extensively discussed with Dr Love and Dr Bauer. Keep hemoglobin >9 to help improve blood flow through the mesenterics. Would keep diet at clears - having less pain with such vs regular diet. Pain meds as needed. Will add asa 81mg daily. Cont statin - lipitor - 40mg daily. (2) Left sided abdominal pain: Plan: Patient has had EXTENSIVE work-up for her abdominal complaints as delineated in this note. Follows closely with Kathi ENGEL at [facility]. Numerous CTs a/p, capsule endo, colonoscopy, small bowel follow-through studies, etc. Constipation has been noted on most studies, but this would not cause weight loss nor the severity of her post-prandial complaints. Of note - 2020 MRA abdomen showed the following - "Focal stenosis of approximately 80% at the origin of the celiac artery. There is also focal stenosis of approximately 70% at the origin of the superior mesenteric artery. There are focal areas of high-grade stenosis within the bilateral proximal renal arteries measuring approximately 80% on the left and 90% on the right. The mid to distal superior mesenteric artery appears patent. The common hepatic artery is likely patent." Her history is very concerning for recurrent episodes of mesenteric ischemia. See #1 above. Pain is improved with downgrade of diet to clears. Continue such. (3) Pneumonia: Plan: b/l basilar Cont ceftriaxone Cont doxy Continue supplemental oxygen prn Bronchodilators qid Tessalon Perles as needed for cough Cont Solu-Medrol 40 Mg IV twice daily -- no wean today (4) COPD exacerbation: Plan: Cont steroids Cont bronchodilators NC O2 to keep sats 90-92% (5) Chronic kidney disease, stage V: Plan: baseline CrCl <15 baseline creatinine has been 4 to 4.5 up until a few weeks ago and now is >5 she is acidotic, and her K level is elevated after much discussion between Dr Bauer and the pt/pt's daughter, conversations between myself and the patient, and after the patient spoke with her nephro logist [place] [facility] she is agreeable to initiation of HD first HD session today - [address] Bauer's assistance (6) Anemia: Plan: 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 B12, folate, Fe studies adequate TSH wnl Heme neg stool in light of #1 and concern for mesenteric ischemia Tx 1 unit PRBCs 10/13/22 repeat H/H stable/improved today follows with Maria D BARTON in the [facility] office for chronic procrit & anemia management (7) Hypertension: Plan: Continue amlodipine 10 mg daily along with carvedilol 3.125 mg BID BPs quite high - may improve with serial HD sessions If no improvement then increase coreg (8) Constipation: Plan: see #1 above constipation will certainly contribute to pain, but won't cause weight loss, fear of eating, and the magnitude of her pains with that said cont on bowel maintenance (9) Hyperkalemia: Plan: 2nd to CKD stage 5 ongoing/recurrent HD session today lasix given this am as well BMP am (10) Hyponatremia: Plan: 2nd to CKD stage 5 BMP am (11) GERD (gastroesophageal reflux disease): Plan: PPI (12) Hypothyroidism: Plan: Continue levothyroxine 25 MCG g daily TSH is normal (13) Hyperlipidemia: Plan: Continue atorvastatin 40 mg daily (14) Aortic stenosis: Plan: severe with valve area <1cm^2 s2 clearly heard no signs it is causing hemodynamic issues or symptoms [id number] this will need to be addressed in the future patient made aware of her diagnosis (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, acquired with hemorrhage: Plan: known intestinal AVMs as seen on capsule endoscopy earlier this year Plan DVT prophylaxis-heparin SQ 5000 BID Daughter updated extensively at bedside today care d/w Dr Bauer care d/w Dr Love complex care coordination today Admission and Anticipated Discharge Date Admission Date: October 12, 2022 Subjective early this AM I called and spoke with Dr Love from vascular surgery Ms Chapin knows Dr Love well - he performed CEA in the past as well as created her AV fistula we discussed her mesenteric ischemia unfortunately MRA was nondiagnostic/poor study he advised CTA a/p knowing that dialysis initiation was imminent for her I spoke with Dr Bauer from nephrology in light of worsening acidosis, worsening K level, worsening Creatinine, and need for CTA study of abdomen the best course of action was to start HD today I then went to the bedside to discuss all of the above with the pt and her daughter Pt's daughter had contacted Dr Bridget Martini - nephrology at [facility] [place] Chapin has been following with her for many years By report Dr Martini was in agreement that HD should proceed today after much discussion Ms Chapin was agreeable to starting dialysis today with respect to her abdominal pain it is improved since restriction of her diet yesterday (downgraded to clears) no vomiting she was a little confused apparently after receiving sedatives for her MRA abdomen she was anxious about everything happening today but understands what needs to get done to get answers and to find a best Rx plan for her abd pain, etc no new events since yesterday tele overnight wnl Review of Systems Review of Systems: gen - no fevers cv - mild orthopnea pulm - worsening cough and dyspnea today s/p PRBCs yesterday afternoon GI - recurrent left-sided abd pain but improved today with restriction of diet Physical Exam Physical Exam: gen - anxious, slightly confused today, tired appearing mouth - MMM neck - mild JVD remains heart - 2/6 holosystolic murmur RUSB, s1 s2 both clearly heard, RRR lungs - wheezes b/l - worse today; b/l basilar rales; no increased work of breathing abd - soft, no peritoneal signs, BS+, no HSM, nontender today ext - trace edema b/l, pulses 2+ b/l skin - pallor improved psych - anxious Results & Data Results & Data Vital Signs (Past 12 Hours) Vital Signs Temp Pulse Pulse Pulse Resp BP BP 10/14/22 19:24 68 19 10/14/22 19:12 10/14/22 19:05 36.8 C 72 18 172/62 H 10/14/22 16:00 61 10/14/22 16:40 165/66 H 10/14/22 16:00 36.8 C 71 156/81 H 10/14/22 16:23 36.5 C 69 18 174/62 H 10/14/22 15:30 63 145/57 H 10/14/22 15:00 61 140/56 L 10/14/22 14:30 60 136/56 L 10/14/22 14:00 60 146/53 H 10/14/22 13:10 36.7 C 65 10/14/22 11:51 59 L 18 10/14/22 11:33 10/14/22 11:10 36.3 C L 63 18 164/60 H Pulse Ox O2 Del Method O2 Flow Rate 10/14/22 19:24 98 Nasal Cannula 3 10/14/22 19:12 Nasal Cannula 3.5 10/14/22 19:05 97 Nasal Cannula 3.5 10/14/22 16:00 10/14/22 16:40 10/14/22 16:00 10/14/22 16:23 96 Nasal Cannula 2.0 10/14/22 15:30 10/14/22 15:00 10/14/22 14:30 10/14/22 14:00 10/14/22 13:10 10/14/22 11:51 93 Nasal Cannula 2 10/14/22 11:33 Nasal Cannula 2 10/14/22 11:10 97 Nasal Cannula 2.0 Laboratory Results Laboratory Results - last 24 hr 10/14/22 10/14/22 10/14/22 06:26 06:26 15:50 WBC 7.97 RBC 3.36 L Hgb 10.3 L D Hct 30.9 L MCV 92.0 MCH 30.7 MCHC 33.3 RDW Std Deviation 57.6 H RDW Coeff of Kris 17.3 H Plt Count 220 MPV 9.5 Sodium 130 L Potassium 5.5 H Chloride 99 Carbon Dioxide 19 L Anion Gap 12 H BUN 89 H Creatinine 5.07 H* D Est Cr Clr Drug Dosing 10.2 Est GFR ( Amer) 8.8 Est GFR (Non-Af Amer) 7.6 BUN/Creatinine Ratio 17.6 Glucose 130 H Calcium 9.2 Hep Bs Antigen Pending Hep Bs Ag Confirmation Pending Hep Bs Antibody, Quant Pending Hep B Core IgM Ab Pending Diagnostic Findings Abdomen/Pelvis CTA 10/14/22 15:50 CT angio abd pelvis wo/w con CLINICAL HISTORY: Mesenteric ischemia. Abdominal pain. COMPARISON STUDY: CT of the abdomen and pelvis October 12, 2022 and MRA of the abdomen October 13, 2022. TECHNIQUE: Unenhanced and arterial phase imaging of the abdomen and pelvis was performed. Intravenous injection of 103 cc of Optiray 320 IV was uneventful. Sagittal and coronal reconstructions were viewed as well as maximal intensity projections on an independent 3-D workstation. Automated exposure control was utilized for the study. A dose lowering technique was utilized adhering to the principles of ALARA. FINDINGS: Small bilateral pleural effusions have increased in size since prior CT. Subpleural opacities favor atelectasis. Interlobular septal thickening within the lower lungs indicates pulmonary edema. There is anasarca. No pneumatosis, free air or portal venous gas is present. Arterial phase images of the liver, spleen, adrenal glands and pancreas are unremarkable. Moderate right and marked left renal atrophy is noted. There is no hydronephrosis. Calcifications within the left renal sinus are vascular in etiology. There may be several small nonobstructing right renal calculi. There are no ureteral calculi. There is no evidence for a bowel obstruction. No bowel wall thickening is identified on this exam. The caliber of the abdominal aorta is normal. There is extensive plaque within the abdominal aorta and branch vessels. There is 70% stenosis at the origin the celiac axis. There is 40% stenosis at the origin of the superior mesenteric artery. There are mild multifocal stenoses within the mid to distal superior mesenteric artery. The proximal inferior mesenteric artery is occluded with immediate reconstitution. There is mild stenosis of the bilateral external iliac arteries. There is moderate stenosis of the visualized proximal bilateral superficial femoral arteries. IMPRESSION: 1. Extensive plaque within the abdominal aorta. Severe (70%) short segment stenosis at the origin of the celiac axis. Mild to moderate (40%) stenosis at the origin of the superior mesenteric artery. Additional mild multifocal stenoses within the superior mesenteric artery. Short segment occlusion with immediate reconstitution of the inferior mesenteric artery. 2. No evidence for a bowel obstruction. No bowel wall thickening identified. 3. Interlobular septal thickening within the lower lungs consistent with pulmonary edema. Mild anasarca. ACT 112: Negative or not required by law. Electronically signed by: Conor Glasgow M.D. 10/14/2022 7:13 PM PG Care Time/CCT Total # of Minutes Spent Total Time Spent with Patient: Total time spent is greater than 50% in coordination of care (as documented) at patient's floor/unit and/or counseling patient: Coding Level of Care Code 06366 SUB INP/OBS CARE 3/50MIN Diagnoses Celiac artery stenosis I77.1 Left sided abdominal pain R10.9 Pneumonia J18.9 COPD exacerbation J44.1 Chronic kidney disease, stage V N18.5 Anemia D64.9 Anemia type: unspecified type Hypertension I10 Hypertension type: unspecified Constipation K59.00 Hyperkalemia E87.5 Hyponatremia E87.1 GERD (gastroesophageal reflux disease) K21.9 Hypothyroidism E03.9 Hyperlipidemia E78.5 Aortic stenosis I35.0 AVM (arteriovenous malformation) of small bowel, acquired with hemorrhage K55.21 (6) Anemia Anemia type: unspecified type Qualified Code(s): D64.9 - Anemia, unspecified (7) Hypertension Hypertension type: unspecified Qualified Code(s): I10 - Essential (primary) hypertension
[2022-10-14] MEDS: traMADol HCL 50 MG TABLET PO PRN (23:13)
[2022-10-14] MEDS ORDERED: SIMETHICONE 80 MG CHEW PO PRN (23:38)
[2022-10-14] MEDS ORDERED: FAMOTIDINE 20 MG in SYRINGE 3 ML IV STA (23:50)
[2022-10-14] MEDS ORDERED: LORazepam 2 MG/1 ML VIAL IV STA (23:50)
[2022-10-14] MEDS ORDERED: ALBUT/IPRATROP 3MG/0.5MG NEB 3 ML VIAL NEB STA (23:50)
[2022-10-15] MEDS: LEVOTHYROXINE SODIUM 25 MCG TABLET PO SCH (05:53)
[2022-10-15 07:18] LABS: Hematocrit (blood only) 31.8 % (37.0-47.0); Hemoglobin 10.4 g/dl (12.0-16.0); Mean Corpuscular Hemoglobin 30.2 pg (25.0-34.0); Mean Corpuscular Hgb Conc 32.7 g/dL (32.0-36.0); Mean Corpuscular Volume 92.4 fL (80.0-100.0); Platelet Count 235 K/uL (130-400); RDW Coefficient of Variation 17.6 % (11.5-14.5); RDW Standard Deviation 58.5 fL (36.4-46.3); Red Blood Count 3.44 M/uL (4.20-5.40); White Blood Count 5.85 K/ul (4.8-10.8)
[2022-10-15] MEDS: ALBUT/IPRATROP 3MG/0.5MG NEB 3 ML VIAL NEB SCH ×4 (07:28→19:47)
[2022-10-15 07:36] LABS: BUN Creatinine Ratio 16.5 (10-20); Calcium 9.2 mg/dl (8.6-10.3); Creatinine Clr Calc Pharmacy 12.8 ml/min; Est GFR (African American) 11.5 ml/min; Est GFR (Non-African American) 9.9 ml/min; Potassium 5.1 mmol/L (3.5-5.1)
[2022-10-15] MEDS: cefTRIAXone SODIUM 2,000 MG in DEXTROSE 5% 50 ML IV SCH (07:51)
[2022-10-15] MEDS: NICOTINE 21 MG/24 HR TDSY TD SCH (07:59)
[2022-10-15] MEDS: methylPREDNISolone 40 MG in SYRINGE 0 ML IV SCH ×3 (08:01→21:11)
[2022-10-15] MEDS: PANTOprazole 40 MG TAB PO SCH ×2 (08:04→21:12)
[2022-10-15] MEDS: DOXYCYCLINE HYCLATE 100 MG CAP PO SCH (08:05)
[2022-10-15] MEDS: SENNA 8.6 MG TAB PO SCH (08:05)
[2022-10-15] MEDS: amLODIPine BESYLATE 5 MG TAB PO SCH (08:06)
[2022-10-15] MEDS: carvediloL 3.125 MG TAB PO SCH ×2 (08:06→16:56)
[2022-10-15] MEDS: HEPARIN SOD 5,000 UNIT/0.5 ML VIAL SQ SCH ×2 (08:13→21:14)
[2022-10-15] MEDS: ASPIRIN 81 MG ECTAB PO SCH (08:22)
[2022-10-15 08:23] LABS: Troponin I High Sensitivity 23.5 pg/ml (0-14)
--- NOTE | 2022-10-15 08:41 | Nephrology Progress Note ---
Date of Service October 15, 2022 Assessment & Plan (1) LESLIE (acute kidney injury): Plan: * LESLIE/CKD vs progressive CKD in the setting of mild CHF, pneumonia * Oliguric. Only 500 cc UO over night * 1st run HD completed 10/14/22. AVF functioned well at Qb 200 cc/hr. Net 1 L UF obtained * Will schedule 2nd HD for this am. Will attempt additional 2 L UF * Monitor PRP, UO (2) Chronic kidney disease, stage V: Plan: * 08/13 Baseline Cr 3.98 w/ EGFR 11 cc/min. Renal impairment is on the basis of renal vascular disease. Primary Broaching Machine Operator has been Dr. Bridget Martini at [facility] * L forearm AVF created 03/[address] Love (3) Abdominal pain: Plan: * 10/13/22 Abdominal MRA (no contrast) - no evidence of SMA stenosis/occlusion. 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 Diffuse aortic atherosclerosis * Await Vascular Surgery recommendations (4) Anemia: Plan: * h/o multiple duodenal & jejunal AVM with recurrent UGI bleed * 10/12 FOBT was negative * Iron saturation 27%, ferritin 152 * Venofer 300 mg IV given 10/13/22 * Epogen 10,000 units SQ given 10/13/22 (5) Pneumonia: Plan: * On Doxycycline, Ceftriaxone and Solumedrol for COPD exacerbation/pneumonia (6) Cystitis: Plan: * 10/13 urine culture + for E. Coli. Currently on Ceftriaxone therapy (7) Hypertension: Plan: * Continue amlodipine, carvedilol, hydralazine * Expect BP will improve with HD/UF (8) Cardiac murmur: Plan: * 10/13/22 Echocardiogram: LVEF 60-65%, severe aortic stenosis Admission and Anticipated Discharge Date Admission Date: October 12, 2022 Subjective Ms. Chapin was evaluated in her hospital room this morning. Her daughter (Svetlana) and a "sitter" were present at bedside. nursing staff development coordinator reports patient was agitated overnight and required 1:1 care. Ms. Chapin continues to c/o LUQ abdominal discomfort following meals. First HD completed yesterday using AVF without complication Review of Systems Constitutional: no fever Eyes: no worsening vision Ear, Nose, Mouth, Throat: no problem reported Respiratory: + dyspnea Cardiovascular: no chest pain Gastrointestinal: + abdominal pain (L upper quadrant) Genitourinary: no dysuria, no hematuria and no flank pain Integumentary: no rash Physical Exam Constitutional: not in distress Eyes: PERRL, conjunctivae normal, anicteric sclerae ENMT: external ear and nose normal, oropharynx normal Neck: trachea midline, no thyromegaly Respiratory: Auscultation: + diminished lung sounds (at bases bilaterally) Cardiovascular: Rate/Rhythm: regular rate and regular rhythm Heart Sounds: + murmur (harsh systolic murmur w/ radiation to carotids) Extremities: + edema (trace LE swelling) AVF + bruit Gastrointestinal (Abdomen): normal bowel sounds, soft, nontender, no hepatosplenomegaly Skin: no rashes Results & Data Vital Signs (Past 12 Hours) Vital Signs Temp Pulse Pulse Pulse Resp BP Pulse Ox 10/15/22 07:55 36.4 C L 75 18 191/67 H 97 10/15/22 07:28 80 20 100 10/15/22 03:07 36.5 C 82 18 180/68 H 96 10/14/22 23:49 71 10/14/22 22:49 36.9 C 74 18 176/52 H 97 O2 Del Method O2 Flow Rate 10/15/22 07:55 Nasal Cannula 2 10/15/22 07:28 Nasal Cannula 4 10/15/22 03:07 Nasal Cannula 4 10/14/22 23:49 10/14/22 22:49 Nasal Cannula 4 Laboratory Results Laboratory Tests 10/15/22 10/15/22 06:19 06:19 WBC 5.85 Hgb 10.4 L Hct 31.8 L Plt Count 235 Sodium 131 L Potassium 5.1 Chloride 97 L Carbon Dioxide 23 BUN 67 H D Creatinine 4.07 H D Glucose 121 H Diagnostic Findings 10/14/22 Abdominal CTA: Small bilateral pleural effusions have increased in size since prior CT. Subpleural opacities favor atelectasis. Interlobular septal thickening within the lower lungs indicates pulmonary edema. There is anasarca. No pneumatosis, free air or portal venous gas is present. Arterial phase images of the liver, spleen, adrenal glands and pancreas are unremarkable. Moderate right and marked left renal atrophy is noted. There is no hydronephrosis. Calcifications within the left renal sinus are vascular in etiology. There may be several small nonobstructing right renal calculi. There are no ureteral calculi. There is no evidence for a bowel obstruction. No bowel wall thickening is identified on this exam. The caliber of the abdominal aorta is normal. There is extensive plaque within the abdominal aorta and branch vessels. There is 70% stenosis at the origin the celiac axis. There is 40% stenosis at the origin of the superior mesenteric artery. There are mild multifocal stenoses within the mid to distal superior mesenteric artery. The proximal inferior mesenteric artery is occluded with immediate reconstitution. There is mild stenosis of the bilateral external iliac arteries. There is moderate stenosis of the visualized proximal bilateral superficial femoral arteries. PG Care Time/CCT Total # of Minutes Spent Total Time Spent with Patient: Total time spent is greater than 50% in coordination of care (as documented) at patient's floor/unit and/or counseling patient: Coding Level of Care Code 06205 SUB INP/OBS CARE 3/50MIN Diagnoses LESLIE (acute kidney injury) N17.9 Chronic kidney disease, stage V N18.5 Abdominal pain R10.9 Anemia D64.9 Anemia type: unspecified type Pneumonia J18.9 Cystitis N30.90 Hypertension I10 Hypertension type: unspecified Cardiac murmur R01.1 (4) Anemia Anemia type: unspecified type Qualified Code(s): D64.9 - Anemia, unspecified (7) Hypertension Hypertension type: unspecified Qualified Code(s): I10 - Essential (primary) hypertension
[2022-10-15] MEDS: hydrALAZINE TAB 50 MG TAB PO SCH ×3 (09:03→21:13)
[2022-10-15] MEDS ORDERED: SODIUM CHLORIDE 0.9% 1000ML 1,000 ML IV PRN (09:04)
[2022-10-15] MEDS ORDERED: EPOETIN ALFA 10,000 UNITS/ML VIAL IV SCH (09:10)
[2022-10-15] MEDS: POLYETHYLENE (MIRALAX) 17 GM PACK PO SCH ×2 (11:36→17:12)
[2022-10-15 12:27] LABS: Hematocrit (blood only) 28.1 % (37.0-47.0); Hemoglobin 9.3 g/dl (12.0-16.0)
[2022-10-15] MEDS ORDERED: ONDANSETRON INJ 2 MG/ML 2 ML VIAL IV STA (13:26)
--- NOTE | 2022-10-15 16:58 | XRay Report ---
KUB HISTORY: severe abd pain, eval fecal load COMPARISON: Abdomen and pelvis CTA 10/14/2022. FINDINGS: The bowel gas pattern is unremarkable. There are no dilated loops of small bowel to suggest an obstruction. No renal calculi. No ureteral calculi. Calcifications in the deep pelvis likely rep resent phleboliths. Prior cholecystectomy. Vascular calcifications are noted. This dextroscoliosis an d degenerative changes within the lumbar spine. Moderate to large amount of well-formed stool within the proximal colon. No pneumoperitoneum or pneumatosis. IMPRESSION: 1. Moderate to large amount of well-formed stool within the proximal colon. 2. No evidence for a bowel obstruction. ACT 112: Negative or not required by law. Electronically signed by: Faisal Azul M.D. 10/15/2022 4:56 PM
[2022-10-15 18:14] LABS: Hematocrit (blood only) 27.2 % (37.0-47.0); Hemoglobin 8.8 g/dl (12.0-16.0)
--- NOTE | 2022-10-15 18:27 | Hospitalist Progress Note ---
Date of Service October 15, 2022 Assessment & Plan (1) Acute encephalopathy: Plan: likely metabolic and toxic metabolic - pneumonia, potentially other factors including hospital psychosis toxic - tramadol (patient & daughter state she had tramadol in 06/2022 and did not tolerate it then - made her confused in June), steroids, etc stop tramadol melatonin 3mg HS to help with sleep-wake circadian rhythm wean steroids as tolerated treat pneumonia consider low dose seroquel or similar but hold off for now (2) Acute blood loss anemia: Plan: 2nd to incident during dialysis today (needle coming out of arm) H/H did drop post-HD today -- will cont to trend the CBC repeat CBC in am if she drops to <8 -- given concerns in #3 - would Tx PRBCs again (3) Celiac artery stenosis: Plan: Suspect that recurrent, persistent/worsening, post-prandial abdominal pain with weight loss over the last few months may be due to this. At minimum the celiac artery is 80% stenosed based on past and current imaging (CTA a/p performed this admission with 80% stenosis). She has lost at least 12kg of weight since October 2021 (25+ pounds). She has stopped eating solids for fear of eating -- she consistently gets post- prandial pain with eating. Formal consult placed to Dr Love for further recommendations. Care extensively discussed with Dr Love and Dr Bauer this week regarding this issue. Keep hemoglobin >9 to help improve blood flow through the mesenterics. Would keep diet at clears - having less pain with such. Pain meds as needed -- does not tolerate tramadol thus stopping such. change to low-dose norco 2.5's prn. Cont asa 81mg daily. Cont lipitor 40mg daily. (4) Left sided abdominal pain: Plan: Patient has had EXTENSIVE work-up for her abdominal complaints over the last 6- 12 months. Follows closely with Kathi ENGEL at [facility]. Numerous CTs a/p, capsule endo, colonoscopy, small bowel follow-through studies, etc. Constipation has been noted on most studies, but this would not cause weight loss of 20-25 pounds nor the severity of her post-prandial complaints. Of note - 2020 MRA abdomen showed the following - "Focal stenosis of approximately 80% at the origin of the celiac artery. There is also focal stenosis of approximately 70% at the origin of the superior mesenteric artery. There are focal areas of high-grade stenosis within the bilateral proximal renal arteries measuring approximately 80% on the left and 90% on the right. The mid to distal superior mesenteric artery appears patent. The common hepatic artery is likely patent." CTA a/p this admission with 80% stenosis of celiac artery once again. Her history is very concerning for recurrent episodes of mesenteric ischemia. Pain is improved with downgrade of diet to clears. Continue such. (5) Pneumonia: Plan: b/l basilar Cont ceftriaxone Cont doxy -- PO doxy may be causing upper GI upset -- change PO to IV Continue supplemental oxygen prn Bronchodilators qid Tessalon Perles as needed for cough Cont Solu-Medrol 40 Mg IV twice daily -- no wean today -- significant wheezing and dyspnea still (6) COPD exacerbation: Plan: Cont steroids Cont bronchodilators NC O2 to keep sats 90-92% (7) Chronic kidney disease, stage V: Plan: baseline CrCl <15 baseline creatinine has been 4 to 4.5 up until a few weeks ago and now is >5 she developed acidemia and hyperkalemia yesterday thus, HD initiated yesterday with 2-hour session unfortunately the needle came out of fistula today only <1 hour into today's session which subsequently was terminated early will need HD again tomorrow - likely has element of volume overload in the setting of PRBCs, the rapid worsening of her renal function, etc appreciate Dr Bauer's assistance (8) Anemia: Plan: 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 and also component of acute blood loss anemia as above B12, folate, Fe studies adequate TSH wnl Heme neg stool in light of concern for mesenteric ischemia Tx 1 unit PRBCs 10/13/22 serial H and H's in the setting of today's dialysis bleeding event follows with Maria D BARTON in the [facility] office for chronic procrit & anemia management (9) Hypertension: Plan: Continue amlodipine 10 mg daily along with carvedilol 3.125 mg BID Continue hydralazine TID BPs quite high - may improve with serial HD sessions Steroids may be worsening as well She is also agitated & anxious which may be exacerbating her BPs If no improvement then increase coreg (10) Constipation: Plan: constipation will certainly contribute to abdominal pain, but won't cause weight loss, fear of eating, and the magnitude of her pains KUB x-ray today - large amount of right-sided stool with mild gaseous distension left side of abdomen (my reading) she is not passing stools and has hard time taking miralax, etc consider "bowel prep" to resolve the constipation issue (11) Hyperkalemia: Plan: 2nd to CKD stage 5 resolved s/p initiation of HD yesterday, 10/14 HD session today terminated early due to the bleeding/dialysis needle event will need HD tomorrow BMP am (12) Hyponatremia: Plan: 2nd to CKD stage 5/development of ESRD BMP am (13) GERD (gastroesophageal reflux disease): Plan: PPI bid add IV pepcid once daily (14) Hypothyroidism: Plan: Continue levothyroxine 25 MCG g daily TSH is normal (15) Hyperlipidemia: Plan: Continue atorvastatin 40 mg daily (16) Aortic stenosis: Plan: severe with valve area <1cm^2 s2 clearly heard no signs it is causing hemodynamic issues or symptoms [id number] this will need to be addressed in the future patient made aware of her diagnosis (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, acquired with hemorrhage: Plan: known intestinal AVMs as seen on capsule endoscopy earlier this year Plan DVT prophylaxis-heparin SQ 5000 BID (cautiously) Daughter updated extensively at bedside once again today care d/w Dr Love by phone today complex care coordination once again Admission and Anticipated Discharge Date Admission Date: October 12, 2022 Subjective overnight was confused, slept poorly, apparently was telling staff she wanted to sitter placed in room for safety this am was more oriented and denying suicidality went to HD earlier today only 1 hour into the session she apparently had raised her arm and the dialysis needle came out of her fistula about 300cc of blood was still in the dialyzer HD session was terminated post-HD hemoglobin low 9's throughout the day today unable to take much in the way of clear liquids lots of burping, belching no stool pain on right side of abdomen, and waves of discomfort on left with "gas" under the left ribs she feels very poorly -- anxious, tired, short of breath at times but no chest pain last pm she remembers waking up frequently feeling dyspneic "everyone thinks that it is in my head" (her abdominal complaints) I reassured her again that this is not the case and that she has numerous active medical problems daughter at bedside during the visit of note - late last pm she had fleeting chest symptoms and thus EKG obtained - NSR, no ST changes; given pepcid IV x 1 at that time Review of Systems Review of Systems: gen - no fever, poor appetite, exhausted & tired cv - see HPI; +Orthopnea, +PND; tele without dysrhythmia overnight pulm - ongoing dyspnea, cough, wheezing GI - despite abd pain she has not had emesis; feels bloated Physical Exam Physical Exam: gen - looks exhausted; mildly confused; anxious; short of breath when she talks fast mouth - MM slightly dry neck - mild JVD remains heart - 2/6 holosystolic murmur RUSB, s1 s2 both clearly heard, RRR lungs - wheezes b/l, b/l basilar rales, airation wnl; no increased work of breathing abd - soft, no peritoneal signs, BS+, no HSM, nontender, mildly distended ext - no edema, pulses 2+ b/l skin - pallor psych - very anxious, confused Results & Data Results & Data Vital Signs (Past 12 Hours) Vital Signs Temp Pulse Pulse Pulse Pulse Resp BP 10/15/22 16:54 36.5 C 70 20 10/15/22 15:52 78 10/15/22 08:00 75 10/15/22 08:00 10/15/22 13:45 98 H 22 10/15/22 10:46 36.5 C 83 10/15/22 10:30 156/60 H 10/15/22 11:17 36.7 C 67 18 10/15/22 10:00 63 165/66 H 10/15/22 09:37 36.5 C 69 10/15/22 07:55 36.4 C L 75 18 10/15/22 07:28 80 20 BP Pulse Ox O2 Del Method O2 Flow Rate 10/15/22 16:54 176/61 H 98 Room Air 10/15/22 15:52 10/15/22 08:00 10/15/22 08:00 Nasal Cannula 2 10/15/22 13:45 98 Nasal Cannula 2 10/15/22 10:46 166/69 H 10/15/22 10:30 10/15/22 11:17 183/65 H 96 Room Air 10/15/22 10:00 10/15/22 09:37 10/15/22 07:55 191/67 H 97 Nasal Cannula 2 10/15/22 07:28 100 Nasal Cannula 4 Laboratory Results Laboratory Results - last 24 hr 10/15/22 10/15/22 10/15/22 06:19 06:19 11:40 WBC 5.85 RBC 3.44 L Hgb 10.4 L 9.3 L Hct 31.8 L 28.1 L MCV 92.4 MCH 30.2 MCHC 32.7 RDW Std Deviation 58.5 H RDW Coeff of Kris 17.6 H Plt Count 235 MPV 10.0 Sodium 131 L Potassium 5.1 Chloride 97 L Carbon Dioxide 23 Anion Gap 11 BUN 67 H D Creatinine 4.07 H D Est Cr Clr Drug Dosing 12.8 Est GFR ( Amer) 11.5 Est GFR (Non-Af Amer) 9.9 BUN/Creatinine Ratio 16.5 Glucose 121 H Calcium 9.2 Troponin I High Sens 23.5 H 10/15/22 17:45 WBC RBC Hgb 8.8 L Hct 27.2 L MCV MCH MCHC RDW Std Deviation RDW Coeff of Kris Plt Count MPV Sodium Potassium Chloride Carbon Dioxide Anion Gap BUN Creatinine Est Cr Clr Drug Dosing Est GFR ( Amer) Est GFR (Non-Af Amer) BUN/Creatinine Ratio Glucose Calcium Troponin I High Sens PG Care Time/CCT Total # of Minutes Spent Total Time Spent with Patient: Total time spent is greater than 50% in coordination of care (as documented) at patient's floor/unit and/or counseling patient: Coding Level of Care Code 58107 SUB INP/OBS CARE 3/50MIN Diagnoses Acute encephalopathy G93.40 Acute blood loss anemia D62 Celiac artery stenosis I77.1 Left sided abdominal pain R10.9 Pneumonia J18.9 COPD exacerbation J44.1 Chronic kidney disease, stage V N18.5 Anemia D64.9 Anemia type: unspecified type Hypertension I10 Hypertension type: unspecified Constipation K59.00 Hyperkalemia E87.5 Hyponatremia E87.1 GERD (gastroesophageal reflux disease) K21.9 Hypothyroidism E03.9 Hyperlipidemia E78.5 Aortic stenosis I35.0 AVM (arteriovenous malformation) of small bowel, acquired with hemorrhage K55.21 (8) Anemia Anemia type: unspecified type Qualified Code(s): D64.9 - Anemia, unspecified (9) Hypertension Hypertension type: unspecified Qualified Code(s): I10 - Essential (primary) hypertension
[2022-10-15] MEDS ORDERED: HYDROCODONE/ACETAMOPHEN 5/325MG TAB PO PRN (19:42)
[2022-10-15] MEDS: DOXYCYCLINE HYCLATE 100 MG in DEXTROSE 5% 100 ML IV SCH (21:10)
[2022-10-15] MEDS: FAMOTIDINE 20 MG in SYRINGE 3 ML IV SCH (21:10)
[2022-10-15] MEDS: ATORVASTATIN 40 MG TAB PO SCH (21:13)
[2022-10-15] MEDS: MELATONIN 3 MG TAB PO SCH (21:37)
[2022-10-16] MEDS: LEVOTHYROXINE SODIUM 25 MCG TABLET PO SCH (05:49)
--- NOTE | 2022-10-16 06:00 | Electrocardiogram Report ---
Test Reason : Blood Pressure : / mmHG Vent. Rate : 073 BPM Atrial Rate : 073 BPM P-R Int : 214 ms QRS Dur : 094 ms QT Int : 408 ms P-R-T Axes : 059 015 080 degrees QTc Int : 449 ms Poor data quality, interpretation may be adversely affected Sinus rhythm with 1st degree A-V block with Premature atrial complexes Otherwise normal ECG When compared with ECG of 11-OCT-2022 22:33, Premature atrial complexes are now Present Confirmed by Pee Mcdonald ([id number]) on 10/16/2022 6:00:40 AM Referred By: REFERRED SELF Confirmed By:Pee Mcdonald
[2022-10-16 06:50] LABS: Hematocrit (blood only) 26.7 % (37.0-47.0); Hemoglobin 8.5 g/dl (12.0-16.0); Mean Corpuscular Hemoglobin 29.9 pg (25.0-34.0); Mean Corpuscular Hgb Conc 31.8 g/dL (32.0-36.0); Nucleated RBC # (auto) 0.02 K/uL (0-0.12); Nucleated RBC % (auto) 0.4 %; Platelet Count 195 K/uL (130-400); RDW Coefficient of Variation 17.1 % (11.5-14.5); RDW Standard Deviation 57.7 fL (36.4-46.3); Red Blood Count 2.84 M/uL (4.20-5.40); White Blood Count 5.25 K/ul (4.8-10.8)
[2022-10-16 06:57] LABS: BUN Creatinine Ratio 15.8 (10-20); Calcium 8.7 mg/dl (8.6-10.3); Est GFR (Non-African American) 10.4 ml/min; Potassium 4.9 mmol/L (3.5-5.1)
[2022-10-16] MEDS ORDERED: SODIUM CHLORIDE 0.9% 1000ML 1,000 ML IV PRN (07:00)
[2022-10-16] MEDS ORDERED: HEPARIN SOD (PORCINE) 1000 UNIT/ML IV ONE (07:00)
[2022-10-16] MEDS: ALBUT/IPRATROP 3MG/0.5MG NEB 3 ML VIAL NEB SCH ×4 (07:04→19:05)
[2022-10-16] MEDS: FAMOTIDINE 20 MG in SYRINGE 3 ML IV SCH (08:09)
[2022-10-16] MEDS: ASPIRIN 81 MG ECTAB PO SCH (08:09)
[2022-10-16] MEDS: HEPARIN SOD 5,000 UNIT/0.5 ML VIAL SQ SCH ×2 (08:10→20:02)
[2022-10-16] MEDS: methylPREDNISolone 40 MG in SYRINGE 0 ML IV SCH ×2 (08:10→20:02)
[2022-10-16] MEDS: NICOTINE 21 MG/24 HR TDSY TD SCH (08:11)
[2022-10-16] MEDS: PANTOprazole 40 MG TAB PO SCH ×2 (08:12→20:02)
[2022-10-16] MEDS: POLYETHYLENE (MIRALAX) 17 GM PACK PO SCH (08:13)
[2022-10-16] MEDS: SENNA 8.6 MG TAB PO SCH (08:13)
[2022-10-16] MEDS: BENZONATATE 100 MG CAPSULE PO PRN (08:30)
--- NOTE | 2022-10-16 08:48 | Nephrology Progress Note ---
Date of Service October 16, 2022 Assessment & Plan (1) LESLIE (acute kidney injury): Plan: * LESLIE/CKD vs progressive CKD in the setting of mild CHF, pneumonia * Oliguric. Only 500 cc UO recorded last 24 hours * 1st run HD completed 10/14/22. 2nd run HD complicated by needle dislodgement * Will schedule 3rd HD for this am. Will attempt additional 2 L UF * Education provided to patient by MD and staffing executive regarding needle placement and arm immobility during treatments. Patient requests soft hand restraint today as a reminder not to move arm * Monitor PRP, UO (2) Chronic kidney disease, stage V: Plan: * 08/13 Baseline Cr 3.98 w/ EGFR 11 cc/min. Renal impairment is on the basis of renal vascular disease. Primary Video Production Engineer has been Dr. Bridget Martini at [facility] * L forearm AVF created 03/[address] Love (3) Abdominal pain: Plan: * 10/13/22 Abdominal MRA (no contrast) - no evidence of SMA stenosis/occlusion. 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 Diffuse aortic atherosclerosis * Await Vascular Surgery recommendations (4) Anemia: Plan: * h/o multiple duodenal & jejunal AVM with recurrent UGI bleed * 10/12 FOBT was negative * Iron saturation 27%, ferritin 152 * Venofer 300 mg IV given 10/13/22 * Epogen 10,000 units SQ given 10/13/22 (5) Pneumonia: Plan: * On Doxycycline, Ceftriaxone and Solumedrol for COPD exacerbation/pneumonia (6) Cystitis: Plan: * 10/13 urine culture + for E. Coli. Currently on Ceftriaxone therapy (7) Hypertension: Plan: * Continue amlodipine, carvedilol, hydralazine * Expect BP will improve with HD/UF (8) Cardiac murmur: Plan: * 10/13/22 Echocardiogram: LVEF 60-65%, severe aortic stenosis Admission and Anticipated Discharge Date Admission Date: October 12, 2022 Subjective Ms. Chapin was evaluated in her hospital room this morning. 2nd dialysis treatment was stopped less than one hour into session when patient waved her L arm and dislodged her needles. staffing executive controlled bleeding and applied cold compress. AVF site with only small area of ecchymosis. Patient is willing to undergo 3rd HD treatment today. She still c/o LUQ discomfort with meals Review of Systems Constitutional: no fever Eyes: no worsening vision Ear, Nose, Mouth, Throat: no problem reported Respiratory: + dyspnea Cardiovascular: no chest pain Gastrointestinal: + abdominal pain (L upper quadrant) Genitourinary: no dysuria, no hematuria and no flank pain Integumentary: no rash Physical Exam Constitutional: not in distress Eyes: PERRL, conjunctivae normal, anicteric sclerae ENMT: external ear and nose normal, oropharynx normal Neck: trachea midline, no thyromegaly Respiratory: Auscultation: + diminished lung sounds (at bases bilaterally) Cardiovascular: Rate/Rhythm: regular rate and regular rhythm Heart Sounds: + murmur (harsh systolic murmur w/ radiation to carotids) Extremities: + edema (trace LE swelling) Gastrointestinal (Abdomen): normal bowel sounds, soft, nontender, no hepatosplenomegaly Skin: no rashes Results & Data Vital Signs (Past 12 Hours) Vital Signs Temp Pulse Pulse Resp BP Pulse Ox O2 Del Method 10/16/22 08:00 36.4 C L 80 18 115/70 99 Room Air 10/16/22 07:04 67 16 97 Nasal Cannula 10/16/22 03:04 36.7 C 66 18 146/65 H 97 Nasal Cannula 10/16/22 00:00 69 10/15/22 21:00 Nasal Cannula 10/15/22 22:55 36.7 C 62 20 161/65 H 97 Nasal Cannula O2 Flow Rate 10/16/22 08:00 10/16/22 07:04 2 10/16/22 03:04 2 10/16/22 00:00 10/15/22 21:00 2 10/15/22 22:55 2 Laboratory Results Laboratory Tests 10/16/22 10/16/22 05:51 06:31 WBC 5.25 Hgb 8.5 L Hct 26.7 L Plt Count 195 Sodium 129 L Potassium 4.9 Chloride 98 Carbon Dioxide 23 BUN 62 H Creatinine 3.93 H Glucose 144 H Calcium 8.7 PG Care Time/CCT Total # of Minutes Spent Total Time Spent with Patient: Total time spent is greater than 50% in coordination of care (as documented) at patient's floor/unit and/or counseling patient: Coding Level of Care Code 45211 SUB INP/OBS CARE 350MIN Diagnoses LESLIE (acute kidney injury) N17.9 Chronic kidney disease, stage V N18.5 Abdominal pain R10.9 Anemia D64.9 Anemia type: unspecified type Pneumonia J18.9 Cystitis N30.90 Hypertension I10 Hypertension type: unspecified Cardiac murmur R01.1 (4) Anemia Anemia type: unspecified type Qualified Code(s): D64.9 - Anemia, unspecified (7) Hypertension Hypertension type: unspecified Qualified Code(s): I10 - Essential (primary) hypertension
[2022-10-16 09:22] LABS: HBSAG NON-REACTIVE (NON-REACTIVE); Hepatitis B Core Antibody IgM NON-REACTIVE (NON-REACTIVE); Hepatitis B Surface Ab, Quant <5 mIU/mL (> OR = 10)
[2022-10-16] MEDS: HEPARIN SOD (PORCINE) 1000 UNIT/ML IV SCH (11:48)
[2022-10-16] MEDS: carvediloL 3.125 MG TAB PO SCH ×2 (13:46→17:30)
[2022-10-16] MEDS: amLODIPine BESYLATE 5 MG TAB PO SCH (13:46)
[2022-10-16] MEDS: hydrALAZINE TAB 50 MG TAB PO SCH ×2 (13:47→20:02)
[2022-10-16] MEDS: DOXYCYCLINE HYCLATE 100 MG in DEXTROSE 5% 100 ML IV SCH ×2 (13:50→20:02)
[2022-10-16] MEDS: cefTRIAXone SODIUM 2,000 MG in DEXTROSE 5% 50 ML IV SCH (13:50)
[2022-10-16] MEDS ORDERED: SODIUM CHLORIDE 0.65% NA SOLN 45 ML (OCEAN) ONE (14:34)
--- NOTE | 2022-10-16 15:59 | Consultation ---
Date of Consultation October 16, 2022 Assessment & Plan (1) Mesenteric artery stenosis: This patient had a CT angiogram which showed a 70% narrowing of her celiac axis and a 40% narrowing of her superior mesenteric artery with diffuse narrowings distally her symptoms really do not match totally the symptoms of mesenteric ischemia. She has had weight loss, but her symptoms, and after eating as little as 2 teaspoons of liquids. Her symptoms consist mostly of left-sided abdominal pain associated with a significant mount of belching or flatus. After she has significant belching her abdominal pain feels different. She feels like it is a gas bubble stuck underneath her diaphragm on the left side. Again these are not consistent with mesenteric ischemia. To treat these vessels via the endovascular approach she would require stenting of her celiac and possibly SMA. If we were to do this time do not think we would improve her symptomatology. She is at a significant risk of embolizing distally and causing a worse problem requiring emergency surgery. I believe at this time being that symptoms are not totally consistent that we should follow along conservatively to see if we get improvement in her symptomatology. We will follow her along while she is in the hospital. Thank you very much for letting us participate in the care of this patient. (2) Renal artery stenosis: History of Present Illness Reason for Consultation: Mesenteric ischemia Attending Physician: Isiah Ortiz MD History of Present Illness This is a 77yo female who has known vascular occlusive disease. She was admitted at this time for abdominal pain. She says it is left sided and constantly present. It is worse with eating solids or liquids. It starts after a few bits or sips of liquids. The size of the meal does not make a difference. This pain has been present for a few years but has gotten worse recently. She claims to have had a 60 lb weight loss. The pain is on the left side of the abdomen and is the same pain that has been present in the past just more intense. She claims that to relieve the discomfort she needs to burp of pass flatus. It comes on after just a few bites of food, either liquid or solid, and starts with belching followed by gas. She denies any changes in her stools. 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 Allergies Allergy/AdvReac Type Severity Reaction Status Date / Time sulfamethoxazole Allergy Severe ELEVATED Verified 09/25/22 06:18 POTASSIUM, BRADYCARDIC "HEART TRIED TO SHUT DOWN" trimethoprim Allergy Severe ELEVATED Verified 09/25/22 06:18 POTASSIUM, BRADYCARDIC "HEART TRIED TO SHUT DOWN" codeine Allergy Intermediate RASH, Verified 09/25/22 06:18 RAPID HEART BEAT gabapentin Allergy Intermediate HALLUCINATIONS; Verified 09/25/22 06:18 SCREAMING/YELLING hydromorphone [From Dilaudid] AdvReac Intermediate Hallucinati Verified 09/25/22 06:18 ng morphine AdvReac Unknown unsure Verified 09/25/22 06:18 "might be okay to take" oxycodone [From Percocet] AdvReac Unknown unsure Verified 09/25/22 06:18 "might be okay to take" Home Medications Medication Instructions Recorded Confirmed Type atorvastatin 40 mg tablet 40 mg PO QPM 09/16/18 09/25/22 History calcium carbonate 600 mg-vitamin 1 cap PO QAM 09/16/18 09/25/22 History D3 5 mcg (200 unit) capsule (Calcium 600 + D(3)) hydralazine 100 mg tablet 100 mg PO BID 04/19/19 09/25/22 History amlodipine 10 mg tablet 10 mg PO QAM 10/10/20 09/25/22 History carvedilol 3.125 mg tablet 3.125 mg PO BID 10/10/20 09/25/22 History ascorbic acid (vitamin C) 500 mg 500 mg PO QAM 12/10/20 09/25/22 History tablet (Vitamin C) multivitamin 1 tab PO DAILY 12/10/20 09/25/22 History B-complex with vitamin C 1 tab PO QAM 02/17/21 09/25/22 History nitroglycerin 0.4 mg sublingual 0.4 mg sublingual DIRECTED PRN 03/30/21 09/25/22 History tablet Chest Pain pantoprazole 40 mg tablet,delayed 40 mg PO BID #60 tabs 04/01/21 09/25/22 Rx release albuterol sulfate 90 mcg/actuation 2 puff inhalation UD PRN Shortness 04/06/21 09/25/22 History aerosol inhaler Of Breath Or Wheezing furosemide 20 mg tablet 20 mg PO DAILY #90 tabs 06/16/22 09/25/22 Rx magnesium oxide 500 mg tablet 500 mg PO DAILY #30 tabs 06/16/22 09/25/22 Rx trazodone 50 mg tablet 50 mg PO HS PRN Sleep 06/16/22 09/25/22 History benzonatate 100 mg capsule 100 mg PO BID PRN Unknown 07/01/22 09/25/22 History lidocaine 4 % topical patch 1 patch topical DAILY PRN Pain 07/01/22 09/25/22 History tramadol 50 mg tablet 50 mg PO TID PRN pain #60 tabs 07/01/22 09/25/22 Rx levothyroxine 25 mcg tablet 25 mcg PO QAM #90 tabs 09/25/22 Rx vitamin E 50 unit capsule 50 unit PO DAILY 09/25/22 09/25/22 History Patient History Medical History Anemia Anemia due to GI blood loss AV fistula left arm>not using now AVM (arteriovenous malformation) AVM (arteriovenous malformation) of small bowel, acquired with hemorrhage Bereavement due to life event Blood in stool resolved Cardiac murmur Carotid stenosis, left Left carotid endarterectomy 11/2020 [facility] with Dr Love Chronic back pain Chronic kidney disease, stage 4 (severe) [facility] Bridget Martini Nephrology Chronic obstructive pulmonary disease inhaler/nebulizer prn Chronic obstructive pulmonary disease CKD (chronic kidney disease) stage 4, GFR 15-29 ml/min DVT prophylaxis Encounter for pre-operative examination GERD (gastroesophageal reflux disease) GI bleed Hemorrhagic gastritis Hx of gout Hyperlipidemia Hypertension Hypothyroidism Melena Mesenteric artery stenosis Peripheral arterial disease Renal artery stenosis Symptomatic anemia Tobacco use disorder Tobacco use disorder Surgical History History of bilateral cataract extraction History of carotid endarterectomy (12/10/20) [facility] with Dr Love History of carpal tunnel release of both wrists History of cholecystectomy History of colonoscopy 11/05/21 [facility] History of colonoscopy with polypectomy History of esophagogastroduodenoscopy (EGD) History of laminectomy lumbar History of repair of right rotator cuff History of tooth extraction all teeth removed Family History Mother Family history of diabetes mellitus Brother Family history of diabetes mellitus Sister Family history of diabetes mellitus Other No family history of adverse response to anesthesia Social History Smoking Status: Current every day smoker Tobacco Type: Cigarettes Age Started Using Tobacco: 20; Cigarettes Per Day: 20 PER DAY; Second Hand Exposure: Yes; Do You Dip or Chew Tobacco: No; Hx Alcohol Use: Yes Alcohol type: wine Hx Substance Use: No Preferred Language: Kuwaiti Communication Ability: Effective Retail Account Representative Required: No Beliefs That Will Affect Care: None marital status: Current Living Situation: Alone current occupational status: 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 [employer] How many Children do You have: 2 Feels Safe at Home: Yes Childhood Exposure to Second-Hand Smoke: No Assistive Devices: Walker Review of Systems Review of Systems: All systems reviewed & are unremarkable except as noted in HPI & below Physical Exam Constitutional: WD/WN, vitals as above Respiratory: normal respiratory effort; no respiratory distress Cardiovascular: Rate/Rhythm: regular rate and regular rhythm Vessels: abdominal aortic pulse present; + posterior tibial pulses abnormal and + dorsalis pedis pulses abnormal Extremities: normal capillary refill Gastrointestinal (Abdomen): Inspection/Auscultation: abdomen normal to inspection; abdomen not distended Percussion/Palpation: + abdomen tender (left side to deep palpation) and abdomen soft; no guarding Musculoskeletal: no cyanosis or clubbing, extremities motor strength 5/5 Neurologic: CN's II-XI intact bilaterally and moves all extremities Psychiatric: Orientation: alert and oriented x 3 Results & Data Vital Signs (Past 12 Hours) Vital Signs Temp Pulse Pulse Pulse Pulse Resp BP 10/16/22 15:27 71 20 10/16/22 14:38 74 10/16/22 13:25 36.6 C 18 L 67 10/16/22 13:00 71 131/100 10/16/22 12:30 80 157/74 H 10/16/22 12:00 71 171/63 H 10/16/22 11:30 61 174/76 H 10/16/22 11:00 58 L 163/57 H 10/16/22 10:30 63 117/56 L 10/16/22 10:00 63 154/61 H 10/16/22 09:45 64 152/62 H 10/16/22 09:32 51 L 171/43 H 10/16/22 08:50 36.7 C 63 10/16/22 08:00 10/16/22 08:00 36.4 C L 80 18 10/16/22 07:04 67 16 BP Pulse Ox O2 Del Method O2 Flow Rate 10/16/22 15:27 97 Nasal Cannula 2 10/16/22 14:38 158/54 H 97 Nasal Cannula 2 10/16/22 13:25 176/62 H 10/16/22 13:00 10/16/22 12:30 10/16/22 12:00 10/16/22 11:30 10/16/22 11:00 10/16/22 10:30 10/16/22 10:00 10/16/22 09:45 10/16/22 09:32 10/16/22 08:50 10/16/22 08:00 Nasal Cannula 2 10/16/22 08:00 115/70 99 Room Air 10/16/22 07:04 97 Nasal Cannula 2
[2022-10-16] MEDS ORDERED: ONDANSETRON INJ 2 MG/ML 2 ML VIAL IV PRN (16:25)
[2022-10-16] MEDS ORDERED: LAVAGE SOLUTION 4000ML PO SCH (16:30)
[2022-10-16] MEDS ORDERED: SUCRALFATE 1 GM/10 ML UDC PO ONE (16:45)
--- NOTE | 2022-10-16 19:21 | Hospitalist Progress Note ---
Date of Service October 16, 2022 Assessment & Plan (1) Acute encephalopathy: Plan: likely metabolic and toxic modestly better today metabolic - pneumonia, hospital psychosis, pain, etc toxic - tramadol (discontinued), steroids, etc stopped tramadol cont melatonin 3mg HS to help with sleep-wake circadian rhythm wean steroids as tolerated treat pneumonia consider low dose seroquel or similar as last resort (2) Acute blood loss anemia: Plan: 2nd to incident during dialysis 10/15 1.5 gram drop H/H acceptable today monitor (3) Celiac artery stenosis: Plan: At minimum the celiac artery is 80% stenosed based on past and current imaging (CTA a/p performed this admission with 80% stenosis). She has lost at least 12kg of weight since October 2021 (25+ pounds). She has stopped eating solids for fear of eating -- she consistently gets post- prandial pain with eating. Dr Love saw in consult today. Feels that abdominal pain is unlikely to be from celiac artery stenosis - cannot rule it out 100%, but other factors are more likely. He plans to follow her during her hospital stay in the event her post-prandial pain persists. Cont asa 81mg daily. Cont lipitor 40mg daily. (4) Left sided abdominal pain: Plan: Patient has had EXTENSIVE work-up for her abdominal complaints over the last 6- 12 months. Follows closely with Kathi ENGEL at [facility]. Numerous CTs a/p, capsule endo, colonoscopy, small bowel follow-through studies, etc have been undertaken. Constipation has been noted on most studies, but this would not cause weight loss of 20-25 pounds nor the severity of her post-prandial complaints. Of note - 2020 MRA abdomen showed the following - "Focal stenosis of approximately 80% at the origin of the celiac artery. There is also focal stenosis of approximately 70% at the origin of the superior mesenteric artery. There are focal areas of high-grade stenosis within the bilateral proximal renal arteries measuring approximately 80% on the left and 90% on the right. The mid to distal superior mesenteric artery appears patent. The common hepatic artery is likely patent." CTA a/p this admission with 80% stenosis of celiac artery once again. Plan - 1. for severe constipation - start go-lytely prep until stools are clear. 2. if pain persists despite Rx of constipation then reconsult Dr Love re: #3. 3. zofran prn 4. carafate 1gm po x 1 5. IV PPI twice daily 6. IV pepcid once daily 7. norco 2.5's prn if absolutely necessary (5) Pneumonia: Plan: b/l basilar Cont ceftriaxone - day #5 Cont doxy - day #5 of atypical coverage (had been on zithromax initially) Continue supplemental oxygen prn Bronchodilators qid Tessalon Perles as needed for cough Cont Solu-Medrol 40 Mg IV twice daily -- no wean today -- still with significant wheezing and dyspnea still repeat cxr due to ongoing complaints of severe dyspnea (6) COPD exacerbation: Plan: Cont steroids Cont bronchodilators NC O2 to keep sats 90-92% (7) Chronic kidney disease, stage V: Plan: baseline CrCl <15 baseline creatinine has been 4 to 4.5 up until a few weeks ago and now is >5 she developed acidemia and hyperkalemia yesterday thus, HD initiated earlier this week has had 2 brief HD sessions to date today will be session #[address] Bauer's assistance (8) Anemia: Plan: 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 and also component of acute blood loss anemia as above B12, folate, Fe studies adequate TSH wnl Heme neg stool in light of concern for mesenteric ischemia Tx 1 unit PRBCs 10/13/22 follows with Maria D BARTON in the [facility] office for chronic procrit & anemia management (9) Hypertension: Plan: Continue amlodipine 10 mg daily along with carvedilol 3.125 mg BID Continue hydralazine TID BPs still high -- will increase coreg dosage (10) Constipation: Plan: constipation will certainly contribute to abdominal pain, but shouldn't cause weight loss, fear of eating, and the magnitude of her pains KUB x-ray 10/15 - large amount of right-sided stool with mild gaseous distension left side of abdomen she is not passing stools and has hard time taking miralax, etc start go-lytely bowel prep to resolve the constipation issue re-eval tomorrow (11) Hyperkalemia: Plan: resolved s/p HD (12) Hyponatremia: Plan: 2nd to CKD stage 5/development of ESRD should improve with serial HD sessions BMP am (13) GERD (gastroesophageal reflux disease): Plan: PPI bid IV pepcid once daily (14) Hypothyroidism: Plan: Continue levothyroxine 25 MCG g daily TSH is normal (15) Hyperlipidemia: Plan: Continue atorvastatin 40 mg daily (16) Aortic stenosis: Plan: severe with valve area <1cm^2 s2 clearly heard no signs it is causing hemodynamic issues or symptoms [id number] this will need to be addressed in the future patient made aware of her diagnosis (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, acquired with hemorrhage: Plan: known intestinal AVMs as seen on capsule endoscopy earlier this year (18) Tobacco dependence: Plan: nicoderm patch 21mg/day Plan DVT prophylaxis-heparin SQ 5000 BID (cautiously) Daughter updated extensively by phone this evening care d/w Dr Love today Admission and Anticipated Discharge Date Admission Date: October 12, 2022 Subjective patient slept poorly again overnight she had HD session today and 1999 UF was obtained tolerated HD well today following HD "she was exhausted" she continues to have frequent burping & belching along with passing copious flatus continues with difficulty eating - taking very little because of the abdominal symptoms continues with frequent episodes of pain over the LUQ but also the LLQ to a lesser degree no vomiting despite the burping/belching denies any chest pain denies any pleuritic pain she continues with episodes of feeling dyspneic it is worst when she has the abdominal pain cough/wheezing persist but no worse than prior tele overnight - NSR Review of Systems Review of Systems: gen - no fevers or chills cv - no chest pain but mild orthopnea present pulm - no sputum GI - see HPI; no BM in 4+ days Physical Exam Physical Exam: gen - again looks exhausted; anxious; c/o abdominal pain mouth - MM dry neck - no JVD heart - 2/6 holosystolic murmur RUSB, s1 s2, RRR lungs - extensive wheezes b/l, no rales, airation good; no increased work of breathing abd - soft, no peritoneal signs, BS+, no HSM, no distension; mildly tender epigastric region + LUQ ext - no edema, pulses 2+ b/l skin - pallor psych - very anxious, frustrated Results & Data Results & Data Vital Signs (Past 12 Hours) Vital Signs Temp Pulse Pulse Pulse Pulse Resp BP 10/16/22 19:05 65 17 10/16/22 16:00 72 10/16/22 15:00 10/16/22 16:00 36.8 C 66 18 10/16/22 15:27 71 20 10/16/22 14:38 74 10/16/22 13:25 36.6 C 18 L 67 10/16/22 13:00 71 131/100 10/16/22 12:30 80 157/74 H 10/16/22 12:00 71 171/63 H 10/16/22 11:30 61 174/76 H 10/16/22 11:00 58 L 163/57 H 10/16/22 10:30 63 117/56 L 10/16/22 10:00 63 154/61 H 10/16/22 09:45 64 152/62 H 10/16/22 09:32 51 L 171/43 H 10/16/22 08:50 36.7 C 63 10/16/22 08:00 10/16/22 08:00 36.4 C L 80 18 BP Pulse Ox O2 Del Method O2 Flow Rate 10/16/22 19:05 98 Nasal Cannula 2 10/16/22 16:00 10/16/22 15:00 Nasal Cannula 2 10/16/22 16:00 147/64 H 98 Room Air 10/16/22 15:27 97 Nasal Cannula 2 10/16/22 14:38 158/54 H 97 Nasal Cannula 2 10/16/22 13:25 176/62 H 10/16/22 13:00 10/16/22 12:30 10/16/22 12:00 10/16/22 11:30 10/16/22 11:00 10/16/22 10:30 10/16/22 10:00 10/16/22 09:45 10/16/22 09:32 10/16/22 08:50 10/16/22 08:00 Nasal Cannula 2 10/16/22 08:00 115/70 99 Room Air Laboratory Results Laboratory Results - last 24 hr 10/14/22 10/16/22 10/16/22 15:50 05:51 06:31 WBC 5.25 RBC 2.84 L Hgb 8.5 L Hct 26.7 L MCV 94.0 MCH 29.9 MCHC 31.8 L RDW Std Deviation 57.7 H RDW Coeff of Kris 17.1 H Plt Count 195 MPV 10.0 Absolute Nucleated RBC 0.02 Nucleated RBC % (auto) 0.4 Sodium 129 L Potassium 4.9 Chloride 98 Carbon Dioxide 23 Anion Gap 8 BUN 62 H Creatinine 3.93 H Est Cr Clr Drug Dosing 13.0 Est GFR ( Amer) 12.0 Est GFR (Non-Af Amer) 10.4 BUN/Creatinine Ratio 15.8 Glucose 144 H Calcium 8.7 Hep Bs Antigen NON-REACTIVE Hep Bs Ag Confirmation TNP Hep Bs Antibody, Quant <5 L Hep B Core IgM Ab NON-REACTIVE PG Care Time/CCT Total # of Minutes Spent Total Time Spent with Patient: Total time spent is greater than 50% in coordination of care (as documented) at patient's floor/unit and/or counseling patient: Coding Level of Care Code 54292 SUB INP/OBS CARE 3/50MIN Diagnoses Acute encephalopathy G93.40 Acute blood loss anemia D62 Celiac artery stenosis I77.1 Left sided abdominal pain R10.9 Pneumonia J18.9 COPD exacerbation J44.1 Chronic kidney disease, stage V N18.5 Anemia D64.9 Anemia type: unspecified type Hypertension I10 Hypertension type: unspecified Constipation K59.00 Hyperkalemia E87.5 Hyponatremia E87.1 GERD (gastroesophageal reflux disease) K21.9 Hypothyroidism E03.9 Hyperlipidemia E78.5 Aortic stenosis I35.0 AVM (arteriovenous malformation) of small bowel, acquired with hemorrhage K55.21 Tobacco dependence F17.200 (8) Anemia Anemia type: unspecified type Qualified Code(s): D64.9 - Anemia, unspecified (9) Hypertension Hypertension type: unspecified Qualified Code(s): I10 - Essential (primary) hypertension
[2022-10-16] MEDS: ATORVASTATIN 40 MG TAB PO SCH (20:02)
[2022-10-16] MEDS: MELATONIN 3 MG TAB PO SCH (20:02)
--- NOTE | 2022-10-16 20:04 | XRay Report ---
XR chest 1V portable CLINICAL HISTORY: dyspnea, shortness of breath TECHNIQUE: Single frontal radiograph of the chest was obtained. Comparison: Comparison is made to chest radiograph 10/11/2022 FINDINGS: No lines and tubes are seen. Cardiomegaly is noted. The aortic arch is calcified. Faint airspace opac ities are seen in the bilateral lower lungs. Trace left pleural effusion. Likely small right pleural effusion as well. IMPRESSION: Bilateral pleural effusions with underlying atelectasis. Superimposed pneumonia cannot be entirely ex cluded. ACT 112: Negative or not required by law. Electronically signed by: Patrick Warner M.D. 10/16/2022 8:02 PM
[2022-10-17] MEDS: LEVOTHYROXINE SODIUM 25 MCG TABLET PO SCH (06:14)
[2022-10-17 07:18] LABS: Hematocrit (blood only) 26.5 % (37.0-47.0); Hemoglobin 8.5 g/dl (12.0-16.0); Mean Corpuscular Hemoglobin 30.6 pg (25.0-34.0); Mean Corpuscular Hgb Conc 32.1 g/dL (32.0-36.0); Mean Corpuscular Volume 95.3 fL (80.0-100.0); Nucleated RBC # (auto) 0.15 K/uL (0-0.12); Nucleated RBC % (auto) 2.2 %; Platelet Count 207 K/uL (130-400); RDW Coefficient of Variation 17.2 % (11.5-14.5); RDW Standard Deviation 59.5 fL (36.4-46.3); Red Blood Count 2.78 M/uL (4.20-5.40); White Blood Count 6.85 K/ul (4.8-10.8)
[2022-10-17] MEDS: ALBUT/IPRATROP 3MG/0.5MG NEB 3 ML VIAL NEB SCH ×2 (07:23→11:41)
[2022-10-17 07:54] LABS: BUN Creatinine Ratio 12.9 (10-20); Calcium 8.5 mg/dl (8.6-10.3); Creatinine Clr Calc Pharmacy 16.6 ml/min; Est GFR (African American) 16.5 ml/min; Est GFR (Non-African American) 14.2 ml/min; Potassium 4.2 mmol/L (3.5-5.1)
[2022-10-17] MEDS: cefTRIAXone SODIUM 2,000 MG in DEXTROSE 5% 50 ML IV SCH (08:40)
[2022-10-17] MEDS: DOXYCYCLINE HYCLATE 100 MG in DEXTROSE 5% 100 ML IV SCH ×2 (08:41→19:51)
[2022-10-17] MEDS: NICOTINE 21 MG/24 HR TDSY TD SCH (08:41)
[2022-10-17] MEDS: hydrALAZINE TAB 50 MG TAB PO SCH ×2 (08:42→19:49)
[2022-10-17] MEDS: amLODIPine BESYLATE 5 MG TAB PO SCH (08:42)
[2022-10-17] MEDS: PANTOprazole 40 MG TAB PO SCH ×2 (08:42→19:50)
[2022-10-17] MEDS: FAMOTIDINE 20 MG TAB PO SCH (08:42)
[2022-10-17] MEDS: carvediloL 3.125 MG TAB PO SCH ×2 (08:42→16:04)
[2022-10-17] MEDS: SENNA 8.6 MG TAB PO SCH (08:42)
[2022-10-17] MEDS: ASPIRIN 81 MG ECTAB PO SCH (08:42)
[2022-10-17] MEDS: methylPREDNISolone 40 MG in SYRINGE 0 ML IV SCH (08:43)
[2022-10-17] MEDS: HEPARIN SOD 5,000 UNIT/0.5 ML VIAL SQ SCH ×2 (08:43→19:55)
[2022-10-17] MEDS: POLYETHYLENE (MIRALAX) 17 GM PACK PO SCH (08:52)
--- NOTE | 2022-10-17 12:28 | Nephrology Progress Note ---
Date of Service October 17, 2022 Assessment & Plan (1) LESLIE (acute kidney injury): Plan: * LESLIE/CKD vs progressive CKD in the setting of mild CHF, pneumonia * 1st run HD completed 10/14/22. 2nd run HD complicated by needle dislodgement. 3rd treatment performed yesterday without complications. AVF functioning well. * Monitor PRP, UO * Next anticipated HD will be Wednesday (2) Chronic kidney disease, stage V: Plan: * 08/13 Baseline Cr 3.98 w/ EGFR 11 cc/min. Renal impairment is on the basis of renal vascular disease. Primary [place] Man has been Dr. Bridget Martini at [facility] * L forearm AVF created 03/[address] Love * Outpatient HD to be arranged at [facility] under the care of Dr. Berman (3) Abdominal pain: Plan: * 10/13/22 Abdominal MRA (no contrast) - no evidence of SMA stenosis/occlusion. 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 Diffuse aortic atherosclerosis * Vascular surgery consultation reviewed this AM. No interventions planned. * Bowel cleanse is being provided. I discussed the plan of care with Dr. Ortiz this AM. (4) Anemia: Plan: * h/o multiple duodenal & jejunal AVM with recurrent UGI bleed * 10/12 FOBT was negative * Iron saturation 27%, ferritin 152 * Venofer 300 mg IV given 10/13/22 * Epogen 10,000 units SQ given 10/13/22 (5) Pneumonia: Plan: * On Doxycycline, Ceftriaxone and Solumedrol for COPD exacerbation/pneumonia (6) Cystitis: Plan: * 10/13 urine culture + for E. Coli. Currently on Ceftriaxone therapy (7) Hypertension: Plan: * Continue amlodipine, carvedilol, hydralazine * Expect BP will improve with HD/UF (8) Cardiac murmur: Plan: * 10/13/22 Echocardiogram: LVEF 60-65%, severe aortic stenosis Admission and Anticipated Discharge Date Admission Date: October 12, 2022 Subjective No acute events overnight. Toña was seen and evaluated with her daughter at the bedside. Multiple watery bowel movements with colon cleanse. Abdominal pain improving. Tolerated HD well. Toña is not sleeping well at night. She reports feeling very tired. Review of Systems Review of Systems: All systems reviewed & are unremarkable except as noted in HPI & below Physical Exam Constitutional: not in distress Eyes: PERRL, conjunctivae normal, anicteric sclerae ENMT: external ear and nose normal, oropharynx normal Neck: trachea midline, no thyromegaly Respiratory: Auscultation: + diminished lung sounds (at bases bilaterally) Cardiovascular: Rate/Rhythm: regular rate and regular rhythm Heart Sounds: + murmur (harsh systolic murmur w/ radiation to carotids) Extremities: + edema (trace LE swelling) and + AV fistula Musculoskeletal: Extremities: no cyanosis and no clubbing Skin: normal turgor; no rashes and no jaundice Neurologic: awake; not confused Psychiatric: Orientation: alert and oriented x 3 Results & Data Vital Signs (Past 12 Hours) Vital Signs Temp Pulse Pulse Pulse Resp BP Pulse Ox 10/17/22 11:41 66 18 92 10/17/22 11:34 36.5 C 64 19 168/56 H 94 10/17/22 08:00 10/17/22 08:00 64 10/17/22 07:34 36.9 C 78 18 172/54 H 10/17/22 07:25 90 20 81 L 10/17/22 04:00 60 158/64 H 10/17/22 03:00 36.6 C 70 22 181/66 H 94 O2 Del Method O2 Flow Rate 10/17/22 11:41 Nasal Cannula 2 10/17/22 11:34 Nasal Cannula 2 10/17/22 08:00 Room Air 10/17/22 08:00 10/17/22 07:34 Nasal Cannula 2 10/17/22 07:25 Room Air 10/17/22 04:00 10/17/22 03:00 Nasal Cannula Laboratory Results Laboratory Results - last 24 hr 10/17/22 10/17/22 06:28 06:28 WBC 6.85 RBC 2.78 L Hgb 8.5 L Hct 26.5 L MCV 95.3 MCH 30.6 MCHC 32.1 RDW Std Deviation 59.5 H RDW Coeff of Kris 17.2 H Plt Count 207 MPV 10.0 Absolute Nucleated RBC 0.15 H Nucleated RBC % (auto) 2.2 Sodium 135 L Potassium 4.2 Chloride 101 Carbon Dioxide 26 Anion Gap 8 BUN 39 H D Creatinine 3.03 H D Est Cr Clr Drug Dosing 16.6 Est GFR ( Amer) 16.5 Est GFR (Non-Af Amer) 14.2 BUN/Creatinine Ratio 12.9 Glucose 117 H Calcium 8.5 L PG Care Time/CCT Total # of Minutes Spent Total Time Spent with Patient: Total time spent is greater than 50% in coordination of care (as documented) at patient's floor/unit and/or counseling patient: Coding Level of Care Code 97267 SUB INP/OBS CARE 3/50MIN Diagnoses LESLIE (acute kidney injury) N17.9 Chronic kidney disease, stage V N18.5 Abdominal pain R10.9 Anemia D64.9 Anemia type: unspecified type Pneumonia J18.9 Cystitis N30.90 Hypertension I10 Hypertension type: unspecified Cardiac murmur R01.1 (4) Anemia Anemia type: unspecified type Qualified Code(s): D64.9 - Anemia, unspecified (7) Hypertension Hypertension type: unspecified Qualified Code(s): I10 - Essential (primary) hypertension
--- NOTE | 2022-10-17 15:04 | Hospitalist Progress Note ---
Date of Service October 17, 2022 Assessment & Plan (1) Left sided abdominal pain: Plan: Patient has had EXTENSIVE work-up for her abdominal complaints over the last 6- 12 months. Follows closely with Kathi ENGEL at [facility]. Numerous CTs a/p, capsule endo, colonoscopy, small bowel follow-through studies, etc have been undertaken. Constipation has been noted on most studies, but this would not cause weight loss of 20-25 pounds nor the severity of her post-prandial complaints. Of note - 2020 MRA abdomen showed the following - "Focal stenosis of approximately 80% at the origin of the celiac artery. There is also focal stenosis of approximately 70% at the origin of the superior mesenteric artery. There are focal areas of high-grade stenosis within the bilateral proximal renal arteries measuring approximately 80% on the left and 90% on the right. The mid to distal superior mesenteric artery appears patent. The common hepatic artery is likely patent." CTA a/p this admission with 70% stenosis of celiac artery, occluded SHARI, and mil dly stenosed SMA. Patient was seen by Dr Love from [facility]. At this time no plans for arteriogram or intervention on the celiac artery. See below in #2. Patient completed a golytely bowel prep since yesterday. Copious stool has been passed and the most recent stools are light in color/clear. She IS more comfortable today following her colon clean-out with much improved burping/belching, less gaseous distension of abdomen and improved left-sided pain. [id number] she still has some abdominal pain and was only able to take a small amount of PO nutrition. Cont IV PPI Cont IV H2 mona zofran prn I corresponded with Dr Edwards from [facility] asking for his consultation and any additional recommendations Of note - I rechecked lipase, lactate, ammonia, etc this afternoon - all negative/normal (2) Celiac artery stenosis: Plan: At minimum the celiac artery is 70-80% stenosed based on past and current imaging (CTA a/p performed this admission with 70% stenosis). She has lost at least 12kg of weight since October 2021 (25+ pounds). She has stopped eating solids for fear of eating -- she consistently gets post- prandial pain with eating. Dr Love saw in consult 10/16. Feels that abdominal pain is unlikely to be from celiac artery stenosis - cannot rule it out 100%, but other factors are more likely (severe constipation, gaseous distension, etc). He plans to follow her during her hospital stay in the event her post-prandial pain persists. Fortunately her pain DID improve today but not fully. She still feels quite poor. Cont asa 81mg daily. Cont lipitor 40mg daily. [facility] consult requested for any other recs for her GI complaints. (3) Acute encephalopathy: Plan: likely metabolic and toxic again improved today metabolic - pneumonia, hospital psychosis, pain, etc toxic - tramadol (discontinued), steroids, etc stopped tramadol cont melatonin 3mg HS to help with sleep-wake circadian rhythm wean steroids as tolerated treat pneumonia cont trazodone HS (4) Acute blood loss anemia: Plan: 2nd to incident during dialysis 10/15 1.5 gram drop H/H again acceptable today monitor repeat CBC am tomorrow (5) Pneumonia: Plan: b/l basilar Cont ceftriaxone - day #6 Cont doxy - day #6 of atypical coverage (had been on zithromax initially) Plan 7 days in total of abx then d/c Continue supplemental oxygen prn Bronchodilators qid - change duonebs to combivent inhaler Tessalon Perles as needed for cough STOP IV steroids today - change to PO prednisone in am (6) COPD exacerbation: Plan: COPD flare Improved Stop IV steroids Wean to PO prednisone in am tomorrow Stop duonebs Change to combivent QID stopping high-dose steroids & duonebs may help with anxiety and tremors NC O2 to keep sats 90-92% (7) Chronic kidney disease, stage V: Plan: baseline CrCl <15 baseline creatinine has been 4 to 4.5 up until a few weeks ago and now is >5 she developed acidemia and hyperkalemia yesterday thus, HD initiated earlier this week has had 2 brief HD sessions to date along with a full treatment on 10/16 total of ~3000cc of UF obtained over the course of those [address] Bauer's assistance (8) Anemia: Plan: 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 and also component of acute blood loss anemia as above B12, folate, Fe studies adequate TSH wnl Heme neg stool in light of concern for mesenteric ischemia Tx 1 unit PRBCs 10/13/22 follows with Maria D BARTON in the [facility] office for chronic procrit & anemia management (9) Hypertension: Plan: Continue amlodipine 10 mg daily along with carvedilol 3.125 mg BID Continue hydralazine BID BPs still high -- will increase coreg dosage today to 6.25mg BID treating anxiety may help her BPs as well (10) Constipation: Plan: constipation will certainly contribute to abdominal pain, but shouldn't cause weight loss, fear of eating, and the magnitude of her pains KUB x-ray 10/15 - large amount of right-sided stool with mild gaseous distension left side of abdomen constipation now resolved s/p golytely prep yesterday/today abdominal symptoms improved but not fully resolved as noted above in #1 (11) Hyperkalemia: Plan: resolved s/p HD (12) Hyponatremia: Plan: 2nd to CKD stage 5/development of ESRD resolved w/ serial HD sessions BMP am (13) GERD (gastroesophageal reflux disease): Plan: has had severe CAMI symptoms cont PPI bid + pepcid once daily (14) Hypothyroidism: Plan: Continue levothyroxine 25 MCG g daily TSH is normal (15) Hyperlipidemia: Plan: Continue atorvastatin 40 mg daily (16) Aortic stenosis: Plan: severe with valve area <1cm^2 s2 clearly heard no signs it is causing hemodynamic issues or symptoms [id number] this will need to be addressed in the future patient made aware of her diagnosis (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, acquired with hemorrhage: Plan: known intestinal AVMs as seen on capsule endoscopy earlier this year she has NOT had any blood per rectum this admission (18) Tobacco dependence: Plan: nicoderm patch 21mg/day (19) Anxiety: Plan: she has multiple medication allergies & sensitivities she did not tolerate ativan a few days ago will ask psychiatry to see in consult to help with anxiety and insomnia (20) Insomnia: Plan: cont melatonin cont trazodone defer any other meds to psych Plan DVT prophylaxis-heparin SQ 5000 BID (cautiously) Daughter updated extensively by phone this evening once again care d/w Dr Brandt - nephrology corresponded with Dr Edwards from [facility] as well ongoing complex care coordination Admission and Anticipated Discharge Date Admission Date: October 12, 2022 Subjective tele stable overnight patient valiantly completed her golytely prep today she has had NUMEROUS bowel movements her last several BMs were hopkins in color/clearing her abdominal discomfort on the left is better - but not fully resolved she has less gaseous distension she is burping minimally at this point was not able to take breakfast did have some soup with lunch and kept it down she is having nausea but no vomiting continues to feel dyspneic sleeping very poorly anxious tremors/shaky still feels that people here "think I'm making this all up" Review of Systems Review of Systems: gen - no fevers; exhausted/very tired; anxious; still uncomfortable but not as much as yesterday cv - no orthopnea; no chest pain pulm - cough/wheezing/dyspneic GI - improved pain; no blood per rectum Physical Exam Physical Exam: gen - looks tired, but maybe a bit better general appearance today vs yesterday mouth - MM slightly dry neck - JVD present heart - RRR, s1 s2, 2-3/6 systolic murmur RUSB lungs - wheezes improved; no rales; airation improved; no increased work of breathing abd - soft, NT, ND, BS+, no peritoneal signs ext - no edema, pulses 2+ b/l neuro - mild tremors psych - very anxious, borderline tearful at times Results & Data Results & Data Vital Signs (Past 12 Hours) Vital Signs Temp Pulse Pulse Pulse Resp BP Pulse Ox 10/17/22 11:41 66 18 92 10/17/22 11:34 36.5 C 64 19 168/56 H 94 10/17/22 08:00 10/17/22 08:00 64 10/17/22 07:34 36.9 C 78 18 172/54 H 10/17/22 07:25 90 20 81 L 10/17/22 04:00 60 158/64 H O2 Del Method O2 Flow Rate 10/17/22 11:41 Nasal Cannula 2 10/17/22 11:34 Nasal Cannula 2 10/17/22 08:00 Room Air 10/17/22 08:00 10/17/22 07:34 Nasal Cannula 2 10/17/22 07:25 Room Air 10/17/22 04:00 Laboratory Results Laboratory Results - last 24 hr 05/27/23 05/27/23 05/27/23 06:28 06:28 15:47 WBC 6.85 RBC 2.78 L Hgb 8.5 L Hct 26.5 L MCV 95.3 MCH 30.6 MCHC 32.1 RDW Std Deviation 59.5 H RDW Coeff of Kris 17.2 H Plt Count 207 MPV 10.0 Absolute Nucleated RBC 0.15 H Nucleated RBC % (auto) 2.2 VBG pH VBG pCO2 VBG pO2 VBG HCO3 VBG O2 Saturation VBG Base Excess Sodium 135 L Potassium 4.2 Chloride 101 Carbon Dioxide 26 Anion Gap 8 BUN 39 H D Creatinine 3.03 H D Est Cr Clr Drug Dosing 16.6 Est GFR ( Amer) 16.5 Est GFR (Non-Af Amer) 14.2 BUN/Creatinine Ratio 12.9 Glucose 117 H Lactate Calcium 8.5 L Magnesium 1.8 Ammonia C-Reactive Protein 0.82 H Lipase 19 10/17/22 10/17/22 10/17/22 15:48 15:48 15:48 WBC RBC Hgb Hct MCV MCH MCHC RDW Std Deviation RDW Coeff of Kris Plt Count MPV Absolute Nucleated RBC Nucleated RBC % (auto) VBG pH 7.34 L VBG pCO2 47 VBG pO2 53 VBG HCO3 25 VBG O2 Saturation 84.4 VBG Base Excess -0.8 Sodium Potassium Chloride Carbon Dioxide Anion Gap BUN Creatinine Est Cr Clr Drug Dosing Est GFR ( Amer) Est GFR (Non-Af Amer) BUN/Creatinine Ratio Glucose Lactate 1.3 Calcium Magnesium Ammonia 22.0 C-Reactive Protein Lipase PG Care Time/CCT Total # of Minutes Spent Total Time Spent with Patient: Total time spent is greater than 50% in coordination of care (as documented) at patient's floor/unit and/or counseling patient: Coding Level of Care Code 46277 SUB INP/OBS CARE 3/50MIN Diagnoses Left sided abdominal pain R10.9 Celiac artery stenosis I77.1 Acute encephalopathy G93.40 Acute blood loss anemia D62 Pneumonia J18.9 COPD exacerbation J44.1 Chronic kidney disease, stage V N18.5 Anemia D64.9 Anemia type: unspecified type Hypertension I10 Hypertension type: unspecified Constipation K59.00 Hyperkalemia E87.5 Hyponatremia E87.1 GERD (gastroesophageal reflux disease) K21.9 Hypothyroidism E03.9 Hyperlipidemia E78.5 Aortic stenosis I35.0 AVM (arteriovenous malformation) of small bowel, acquired with hemorrhage K55.21 Tobacco dependence F17.200 Anxiety F41.9 Insomnia G47.00 (8) Anemia Anemia type: unspecified type Qualified Code(s): D64.9 - Anemia, unspecified (9) Hypertension Hypertension type: unspecified Qualified Code(s): I10 - Essential (primary) hypertension
[2022-10-17 15:58] LABS: Base Excess VBG -0.8 mEq/L; HCO3 VBG 25 mmol/L; Oxygen Saturation VBG 84.4 %; PCO2 VBG 47 mmHg (38-50); PO2 VBG 53 mmHg; pH VBG 7.34 (7.36-7.41)
--- NOTE | 2022-10-17 16:03 | Communication Note ---
Date of Service: October 17, 2022 Consult received, chart reviewed, case discussed with Dr. Ortiz. Patient sensitive to multiple medications, recently started dialysis, tapering steroids for COPD exacerbation, and anxiety. Hasn't slept much in past 5 days. Received low dose Ativan a few days back which resulted in confusion. Patient would like medication for anxiety but also needs sleep regulation. Normal QTc, resolving hyponatremia, and significantly elevated Cr. Liaison reports talkative, anxious, no hx yuri or formal psych hx. Will start with increase in trazodone and reassess anxiety. trazodone does not typically required renal dosing but will be conservative given respiratory comorbidity. Will increase trazodone to 75 mg hs with an additional 25 mg available prn. Full consult to follow.
[2022-10-17] MEDS ORDERED: traZODone HCL 50 MG TAB PO PRN (16:04)
[2022-10-17 16:20] LABS: C Reactive Protein 0.82 mg/dl (0-0.5); Magnesium 1.8 mg/dl (1.7-2.4)
[2022-10-17] MEDS: IPRATROPIUM BROMIDE HFA INHALER INH SCH ×2 (16:48→19:28)
[2022-10-17] MEDS: ALBUTEROL HFA 8 GM INHALER INH SCH ×2 (16:48→19:27)
[2022-10-17] MEDS ORDERED: IPRATROPIUM BROMIDE/ALBUTEROL respimat INH INH SCH (17:00)
[2022-10-17] MEDS ORDERED: carvediloL 3.125 MG TAB PO ONE (18:28)
[2022-10-17] MEDS: MELATONIN 3 MG TAB PO SCH (19:50)
[2022-10-17] MEDS: ATORVASTATIN 40 MG TAB PO SCH (19:52)
[2022-10-17] MEDS ORDERED: traZODone HCL 50 MG TAB PO SCH ×2 (21:00)
[2022-10-18] MEDS: LEVOTHYROXINE SODIUM 25 MCG TABLET PO SCH (05:38)
[2022-10-18 06:39] LABS: Hematocrit (blood only) 23.8 % (37.0-47.0); Hemoglobin 7.7 g/dl (12.0-16.0); Mean Corpuscular Hemoglobin 29.8 pg (25.0-34.0); Mean Corpuscular Hgb Conc 32.4 g/dL (32.0-36.0); Mean Corpuscular Volume 92.2 fL (80.0-100.0); Mean Platelet Volume 10.3 fL (9.4-12.4); Nucleated RBC % (auto) 1.3 %; Platelet Count 201 K/uL (130-400); RDW Coefficient of Variation 17.2 % (11.5-14.5); RDW Standard Deviation 56.6 fL (36.4-46.3); Red Blood Count 2.58 M/uL (4.20-5.40); White Blood Count 7.42 K/ul (4.8-10.8)
[2022-10-18 06:57] LABS: BUN Creatinine Ratio 12.7 (10-20); Calcium 8.3 mg/dl (8.6-10.3); Creatinine Clr Calc Pharmacy 14.2 ml/min; Est GFR (African American) 13.7 ml/min; Est GFR (Non-African American) 11.8 ml/min; Potassium 3.6 mmol/L (3.5-5.1)
[2022-10-18] MEDS: ALBUTEROL HFA 8 GM INHALER INH SCH ×4 (07:13→18:57)
[2022-10-18] MEDS: IPRATROPIUM BROMIDE HFA INHALER INH SCH ×4 (07:14→18:58)
[2022-10-18] MEDS: carvediloL 6.25 MG TAB PO SCH ×2 (08:08→16:59)
[2022-10-18] MEDS: HEPARIN SOD 5,000 UNIT/0.5 ML VIAL SQ SCH ×2 (08:10→19:50)
[2022-10-18] MEDS: amLODIPine BESYLATE 5 MG TAB PO SCH (08:10)
[2022-10-18] MEDS: NICOTINE 21 MG/24 HR TDSY TD SCH (08:10)
[2022-10-18] MEDS: FAMOTIDINE 20 MG TAB PO SCH (08:10)
[2022-10-18] MEDS: ASPIRIN 81 MG ECTAB PO SCH (08:10)
[2022-10-18] MEDS: hydrALAZINE TAB 50 MG TAB PO SCH ×2 (08:10→19:51)
[2022-10-18] MEDS: PANTOprazole 40 MG TAB PO SCH ×2 (08:11→19:51)
[2022-10-18] MEDS: SENNA 8.6 MG TAB PO SCH (08:11)
[2022-10-18] MEDS: POLYETHYLENE (MIRALAX) 17 GM PACK PO SCH (08:11)
[2022-10-18] MEDS: predniSONE 20 MG TAB PO SCH (08:11)
[2022-10-18] MEDS: cefTRIAXone SODIUM 2,000 MG in DEXTROSE 5% 50 ML IV SCH (08:14)
[2022-10-18] MEDS: DOXYCYCLINE HYCLATE 100 MG in DEXTROSE 5% 100 ML IV SCH (09:51)
--- NOTE | 2022-10-18 10:41 | Gastrointestinal Consultation ---
Date of Consultation October 18, 2022 Assessment & Plan (1) Left sided abdominal pain: Pleasant woman with pain that has persisted for a while and has had extensive evaluation over the past year or so including all tests that can be done on the GI tract without cause for pain. I don't think further GI workup is needed at this point. The only abnormal finding that she has had has been mesenteric vascular issues. 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 I will defer to Dr. Love about need for correction of vascular issues. I will review records at [facility] to make sure nothing abnormal that we are unaware of. Of note, stress can cause all of the symptoms that she has but she is not willing to consider that. History of Present Illness Reason for Consultation: abdominal pain Attending Physician: Isiah Ortiz MD History of Present Illness 77 year old female with chronic abdominal pain. She has had extensive GI workup with EGD, Colonoscopy, Capsule endoscopy, double balloon enteroscopy, CTA's small bowel Xrays all of which were normal except for polyps and "TNTC" AVM's in the small bowel. She has abdominal pain on her left side, either the upper or the lower abdomen depending on the day. Most of the time the pain worsens with meals. She has had trouble with constipation but she recently took golytely and was cleaned out but her pain, although somewhat improved, persisted. She ate yogurt this morning and her pain returned in her upper abdomen. She denies any recent stressors except for her son who two years ago. She refuses to believe that has any bearing. She does have mesenteric vascular issues and has been seen by Dr. Love Allergies Allergy/AdvReac Type Severity Reaction Status Date / Time sulfamethoxazole Allergy Severe ELEVATED Verified 09/25/22 06:18 POTASSIUM, BRADYCARDIC "HEART TRIED TO SHUT DOWN" trimethoprim Allergy Severe ELEVATED Verified 09/25/22 06:18 POTASSIUM, BRADYCARDIC "HEART TRIED TO SHUT DOWN" codeine Allergy Intermediate RASH, Verified 09/25/22 06:18 RAPID HEART BEAT gabapentin Allergy Intermediate HALLUCINATIONS; Verified 09/25/22 06:18 SCREAMING/YELLING hydromorphone [From Dilaudid] AdvReac Intermediate Hallucinati Verified 09/25/22 06:18 ng morphine AdvReac Unknown unsure Verified 09/25/22 06:18 "might be okay to take" oxycodone [From Percocet] AdvReac Unknown unsure Verified 09/25/22 06:18 "might be okay to take" Home Medications Medication Instructions Recorded Confirmed Type atorvastatin 40 mg tablet 40 mg PO QPM 09/16/18 09/25/22 History calcium carbonate 600 mg-vitamin 1 cap PO QAM 09/16/18 09/25/22 History D3 5 mcg (200 unit) capsule (Calcium 600 + D(3)) hydralazine 100 mg tablet 100 mg PO BID 04/19/19 09/25/22 History amlodipine 10 mg tablet 10 mg PO QAM 10/10/20 09/25/22 History carvedilol 3.125 mg tablet 3.125 mg PO BID 10/10/20 09/25/22 History ascorbic acid (vitamin C) 500 mg 500 mg PO QAM 12/10/20 09/25/22 History tablet (Vitamin C) multivitamin 1 tab PO DAILY 12/10/20 09/25/22 History B-complex with vitamin C 1 tab PO QAM 02/17/21 09/25/22 History nitroglycerin 0.4 mg sublingual 0.4 mg sublingual DIRECTED PRN 03/30/21 09/25/22 History tablet Chest Pain pantoprazole 40 mg tablet,delayed 40 mg PO BID #60 tabs 04/01/21 09/25/22 Rx release albuterol sulfate 90 mcg/actuation 2 puff inhalation UD PRN Shortness 04/06/21 09/25/22 History aerosol inhaler Of Breath Or Wheezing furosemide 20 mg tablet 20 mg PO DAILY #90 tabs 06/16/22 09/25/22 Rx magnesium oxide 500 mg tablet 500 mg PO DAILY #30 tabs 06/16/22 09/25/22 Rx trazodone 50 mg tablet 50 mg PO HS PRN Sleep 06/16/22 09/25/22 History benzonatate 100 mg capsule 100 mg PO BID PRN Unknown 07/01/22 09/25/22 History lidocaine 4 % topical patch 1 patch topical DAILY PRN Pain 07/01/22 09/25/22 History tramadol 50 mg tablet 50 mg PO TID PRN pain #60 tabs 07/01/22 09/25/22 Rx levothyroxine 25 mcg tablet 25 mcg PO QAM #90 tabs 09/25/22 Rx vitamin E 50 unit capsule 50 unit PO DAILY 09/25/22 09/25/22 History Patient History Medical History Anemia Anemia due to GI blood loss AV fistula left arm>not using now AVM (arteriovenous malformation) AVM (arteriovenous malformation) of small bowel, acquired with hemorrhage Bereavement due to life event Blood in stool resolved Cardiac murmur Carotid stenosis, left Left carotid endarterectomy 11/2020 [facility] with Dr Love Chronic back pain Chronic kidney disease, stage 4 (severe) [facility] Chronic obstructive pulmonary disease inhaler/nebulizer prn Chronic obstructive pulmonary disease CKD (chronic kidney disease) stage 4, GFR 15-29 ml/min DVT prophylaxis Encounter for pre-operative examination GERD (gastroesophageal reflux disease) GI bleed Hemorrhagic gastritis Hx of gout Hyperlipidemia Hypertension Hypothyroidism Melena Mesenteric artery stenosis Peripheral arterial disease Renal artery stenosis Symptomatic anemia Tobacco use disorder Tobacco use disorder Surgical History History of bilateral cataract extraction History of carotid endarterectomy (12/10/20) [facility] with Dr Love History of carpal tunnel release of both wrists History of cholecystectomy History of colonoscopy 11/05/21 [facility] History of colonoscopy with polypectomy History of esophagogastroduodenoscopy (EGD) History of laminectomy lumbar History of repair of right rotator cuff History of tooth extraction all teeth removed Family History Mother Family history of diabetes mellitus Brother Family history of diabetes mellitus Sister Family history of diabetes mellitus Other No family history of adverse response to anesthesia Social History Smoking Status: Current every day smoker Tobacco Type: Cigarettes Age Started Using Tobacco: 20; Cigarettes Per Day: 20 PER DAY; Second Hand Exposure: Yes; Do You Dip or Chew Tobacco: No; Hx Alcohol Use: Yes Alcohol type: wine Hx Substance Use: No Preferred Language: Icelandic Communication Ability: Effective Paper Carrier Required: No Beliefs That Will Affect Care: None marital status: Current Living Situation: Alone current occupational status: retired 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 [employer] How many Children do You have: 2 Feels Safe at Home: Yes Childhood Exposure to Second-Hand Smoke: No Assistive Devices: Walker Review of Systems Review of Systems: All systems reviewed & are unremarkable except as noted in HPI & below Physical Exam Constitutional: WD/WN, vitals as above no acute distress Eyes: PERRL, conjunctivae normal, anicteric sclerae ENMT: external ear and nose normal, oropharynx normal Neck: trachea midline, no thyromegaly Respiratory: normal respiratory effort, lungs clear to auscultation Cardiovascular: RRR, no murmur, no edema Gastrointestinal (Abdomen): normal bowel sounds, soft, nontender, no hepatosplenomegaly Musculoskeletal: Extremities: no cyanosis and no clubbing Skin: no rashes, warm and dry Neurologic: PERRL, EOMI, accommodation nl, no face palsy, no dysarthria Psychiatric: Orientation: alert and oriented x 3 Results & Data Vital Signs (Past 12 Hours) Vital Signs Temp Pulse Pulse Resp BP Pulse Ox O2 Del Method 10/18/22 08:00 Nasal Cannula 10/18/22 08:13 36.7 C 60 20 186/63 H 95 Nasal Cannula 10/18/22 07:55 63 10/18/22 07:14 67 18 98 Nasal Cannula 10/18/22 03:00 36.7 C 65 19 173/65 H 98 Nasal Cannula 10/18/22 00:00 61 10/17/22 23:30 61 10/17/22 23:00 36.8 C 64 20 175/67 H 95 Nasal Cannula O2 Flow Rate 10/18/22 08:00 2 10/18/22 08:13 2 10/18/22 07:55 10/18/22 07:14 3 10/18/22 03:00 2 10/18/22 00:00 10/17/22 23:30 10/17/22 23:00 2 Laboratory Results 10/18/22 10/18/22 10/17/22 Range/Units 05:34 05:34 15:48 WBC 7.42 (4.8-10.8) K/ul RBC 2.58 L (4.20-5.40) M/uL Hgb 7.7 L (12.0-16.0) g/dl Hct 23.8 L (37.0-47.0) % MCV 92.2 (80.0-100.0) fL MCH 29.8 (25.0-34.0) pg MCHC 32.4 (32.0-36.0) g/dL RDW Std Deviation 56.6 H (36.4-46.3) fL RDW Coeff of Kris 17.2 H (11.5-14.5) % Plt Count 201 (130-400) K/uL MPV 10.3 (9.4-12.4) fL Absolute Nucleated RBC 0.10 (0-0.12) K/uL Nucleated RBC % (auto) 1.3 % VBG pH (7.36-7.41) VBG pCO2 (38-50) mmHg VBG pO2 mmHg VBG HCO3 mmol/L VBG O2 Saturation % VBG Base Excess mEq/L Sodium 134 L (136-145) mmol/L Potassium 3.6 (3.5-5.1) mmol/L Chloride 99 (98-107) mmol/L Carbon Dioxide 26 (21-32) mmol/L Anion Gap 9 (3-11) BUN 45 H (6-23) mg/dl Creatinine 3.53 H D (0.6-1.2) mg/dl Est Cr Clr Drug Dosing 14.2 ml/min Est GFR ( Amer) 13.7 ml/min Est GFR (Non-Af Amer) 11.8 ml/min BUN/Creatinine Ratio 12.7 (10-20) Glucose 78 (70-99(Fasting)) mg/dl Lactate 1.3 (0.4-2.0) mmol/L Calcium 8.3 L (8.6-10.3) mg/dl Magnesium (1.7-2.4) mg/dl Ammonia (18-72) umol/L C-Reactive Protein (0-0.5) mg/dl Lipase (11-82) U/L 10/17/22 10/17/22 10/17/22 Range/Units 15:48 15:48 15:47 WBC (4.8-10.8) K/ul RBC (4.20-5.40) M/uL Hgb (12.0-16.0) g/dl Hct (37.0-47.0) % MCV (80.0-100.0) fL MCH (25.0-34.0) pg MCHC (32.0-36.0) g/dL RDW Std Deviation (36.4-46.3) fL RDW Coeff of Kris (11.5-14.5) % Plt Count (130-400) K/uL MPV (9.4-12.4) fL Absolute Nucleated RBC (0-0.12) K/uL Nucleated RBC % (auto) % VBG pH 7.34 L (7.36-7.41) VBG pCO2 47 (38-50) mmHg VBG pO2 53 mmHg VBG HCO3 25 mmol/L VBG O2 Saturation 84.4 % VBG Base Excess -0.8 mEq/L Sodium (136-145) mmol/L Potassium (3.5-5.1) mmol/L Chloride (98-107) mmol/L Carbon Dioxide (21-32) mmol/L Anion Gap (3-11) BUN (6-23) mg/dl Creatinine (0.6-1.2) mg/dl Est Cr Clr Drug Dosing ml/min Est GFR ( Amer) ml/min Est GFR (Non-Af Amer) ml/min BUN/Creatinine Ratio (10-20) Glucose (70-99(Fasting)) mg/dl Lactate (0.4-2.0) mmol/L Calcium (8.6-10.3) mg/dl Magnesium 1.8 (1.7-2.4) mg/dl Ammonia 22.0 (18-72) umol/L C-Reactive Protein 0.82 H (0-0.5) mg/dl Lipase 19 (11-82) U/L Diagnostic Findings Abdomen/Pelvis CT 10/11/22 23:42 Exam(s): CT ABDOMEN + PELVIS Without Contrast EXAM: CT Abdomen and Pelvis Without Intravenous Contrast CLINICAL HISTORY: Reason for exam: cp/ap, nausea, sob. TECHNIQUE: Axial computed tomography images of the abdomen and pelvis without intravenous contrast. CTDI is 18.66 mGy and DLP is 872.77 mGy-cm. Automated exposure control was utilized for the study. A dose lowering technique was utilized adhering to the principles of ALARA. COMPARISON: 04/06/2021. FINDINGS: Lung bases: Bilateral lower lobe consolidation, more significant on the right and compatible with infiltrates. Pleural space: Mild bilateral pleural effusions, right larger than left. Heart: Mild cardiomegaly with coronary artery calcific. ABDOMEN: Liver: Unremarkable. Gallbladder and bile ducts: Status post cholecystectomy otherwise unremarkable biliary system. No ductal dilation. Pancreas: Mild stranding surrounding the pancreas, cannot exclude pancreatitis. No ductal dilation. Spleen: Unremarkable. No splenomegaly. Adrenals: Unremarkable. No mass. Kidneys and ureters: Right lower renal pole low-attenuation structure, stable in the interval measuring 1.8 cm and compatible with simple renal cyst. Multiple calcifications within the right kidney, largest measuring 2.6 mm suggestive of stones versus vascular etiology. Otherwise unremarkable right kidney with no hydronephrosis. Calcifications within the left kidney, largest measuring 6 mm suggestive of stones versus vascular etiology. Left lower renal pole low-attenuation structure measuring 1.4 cm, stable in the interval and most compatible with simple cyst. Otherwise normal left kidney. Stomach and bowel: Increased fecal debris within the colon more severe distally and within the sigmoid suggestive of constipation. No obstruction. No mucosal thickening. PELVIS: Appendix: Normal appendix. Bladder: Unremarkable. No stones. Reproductive: Anteverted uterus. ABDOMEN and PELVIS: Intraperitoneal space: Unremarkable. No free air. No significant fluid collection. Bones/joints: Advanced degenerative disease of the spine with multilevel vacuum phenomenon. Scoliosis of the lumbar spine with convexity to the right. No acute fracture. No dislocation. Soft tissues: Unremarkable. Vasculature: Atherosclerotic disease of aorta with tortuosity. No aneurysm. Lymph nodes: Unremarkable. No enlarged lymph nodes. IMPRESSION: 1. Constipation. No acute appendicitis or bowel obstruction. 2. Status post cholecystectomy. Bilateral simple renal cysts as described, stable in the interval and likely benign. No further imaging follow-up recommended unless warranted by clinical presentation. 3. Cannot exclude pancreatitis, correlation with amylase and lipase recommended. 4. Bilateral pleural effusions with bilateral lower lobe consolidation suggestive of residual infiltrates. Clinical correlation recommended. Electronically signed by: Viky Trejo MD 10/12/22 02:[address] 10/11/22 23:42 Exam(s): CT CHEST Without Contrast EXAM: CT Chest Without Intravenous Contrast CLINICAL HISTORY: Reason for exam: cp/ap, nausea, sob. TECHNIQUE: Axial computed tomography images of the chest without intravenous contrast. CTDI is 14.87 mGy and DLP is 872.77 mGy-cm. Automated exposure control was utilized for the study. A dose lowering technique was utilized adhering to the principles of ALARA. COMPARISON: None. FINDINGS: Lungs: Right lower lobe consolidation suggestive of pneumonia. Left posterior lower lobe atelectasis with mild subpleural consolidation, cannot exclude residual infiltrate. Possible mild emphysematous changes at the lung apices. Pleural space: Mild right-sided pleural effusion. Trace left-sided pleural effusion. No pneumothorax. Heart: Borderline cardiomegaly with coronary artery calcifications. No significant pericardial effusion. Bones/joints: Advanced degenerative disease of the spine, more severe through the upper lumbar spine and thoracolumbar junction. No acute fracture. No dislocation. Soft tissues: Unremarkable. Vasculature: Unremarkable. No thoracic aortic aneurysm. Lymph nodes: Unremarkable. No enlarged lymph nodes. Gallbladder and bile ducts: Upper abdomen reveals status post cholecystectomy otherwise unremarkable biliary system. IMPRESSION: 1. Bilateral mild pleural effusions, right larger than left. 2. Bilateral lower lobe consolidation with subpleural interstitial and groundglass density suggestive of bilateral lower lobe pneumonia, right more significant compared to the left. Electronically signed by: Viky Trejo MD 10/12/22 02:38 AM Abdomen MRA 10/13/22 16:25 Exam(s): MRA ABDOMEN Without Contrast EXAM: MR Angiography Abdomen With Intravenous Contrast CLINICAL HISTORY: Reason for exam: post-prandial abd pain, ischemia?. TECHNIQUE: Magnetic resonance angiography images of the abdomen with intravenous contrast. MIP reconstructed images were created and reviewed. COMPARISON: No relevant prior studies available. FINDINGS: Patent celiac artery, and superior mesenteric artery, without any stenosis. The proximal right inferior mesenteric artery is occluded with reconstitution of the artery approximately a centimeter beyond its origin. Atherosclerotic irregularity seen in the abdominal aortic wall the caliber of which measures up to 2.6 cm in diameter. IMPRESSION: 1. No evidence of superior mesenteric artery stenosis or occlusion 2. Occluded proximal most inferior mesenteric artery with reconstitution through collateral circulation Electronically signed by: Kamlesh Hodge MD 10/14/22 06:08 AM Abdomen/Pelvis CTA 10/14/22 15:50 CT angio abd pelvis wo/w con CLINICAL HISTORY: Mesenteric ischemia. Abdominal pain. COMPARISON STUDY: CT of the abdomen and pelvis October 12, 2022 and MRA of the abdomen October 13, 2022. TECHNIQUE: Unenhanced and arterial phase imaging of the abdomen and pelvis was performed. Intravenous injection of 103 cc of Optiray 320 IV was uneventful. Sagittal and coronal reconstructions were viewed as well as maximal intensity projections on an independent 3-D workstation. Automated exposure control was utilized for the study. A dose lowering technique was utilized adhering to the principles of ALARA. FINDINGS: Small bilateral pleural effusions have increased in size since prior CT. Subpleural opacities favor atelectasis. Interlobular septal thickening within the lower lungs indicates pulmonary edema. There is anasarca. No pneumatosis, free air or portal venous gas is present. Arterial phase images of the liver, spleen, adrenal glands and pancreas are unremarkable. Moderate right and marked left renal atrophy is noted. There is no hydronephrosis. Calcifications within the left renal sinus are vascular in etiology. There may be several small nonobstructing right renal calculi. There are no ureteral calculi. There is no evidence for a bowel obstruction. No bowel wall thickening is identified on this exam. The caliber of the abdominal aorta is normal. There is extensive plaque within the abdominal aorta and branch vessels. There is 70% stenosis at the origin the celiac axis. There is 40% stenosis at the origin of the superior mesenteric artery. There are mild multifocal stenoses within the mid to distal superior mesenteric artery. The proximal inferior mesenteric artery is occluded with immediate reconstitution. There is mild stenosis of the bilateral external iliac arteries. There is moderate stenosis of the visualized proximal bilateral superficial femoral arteries. IMPRESSION: 1. Extensive plaque within the abdominal aorta. Severe (70%) short segment stenosis at the origin of the celiac axis. Mild to moderate (40%) stenosis at the origin of the superior mesenteric artery. Additional mild multifocal stenoses within the superior mesenteric artery. Short segment occlusion with immediate reconstitution of the inferior mesenteric artery. 2. No evidence for a bowel obstruction. No bowel wall thickening identified. 3. Interlobular septal thickening within the lower lungs consistent with pulmonary edema. Mild anasarca. ACT 112: Negative or not required by law. Electronically signed by: Conor Glasgow M.D. 10/14/2022 7:13 PM KUB X-Ray 10/15/22 15:30 KUB HISTORY: severe abd pain, eval fecal load COMPARISON: Abdomen and pelvis CTA 10/14/2022. FINDINGS: The bowel gas pattern is unremarkable. There are no dilated loops of small bowel to suggest an obstruction. No renal calculi. No ureteral calculi. Calcifications in the deep pelvis likely represent phleboliths. Prior cholecystectomy. Vascular calcifications are noted. This dextroscoliosis and degenerative changes within the lumbar spine. Moderate to large amount of well-formed stool within the proximal colon. No pneumoperitoneum or pneumatosis. IMPRESSION: 1. Moderate to large amount of well-formed stool within the proximal colon. 2. No evidence for a bowel obstruction. ACT 112: Negative or not required by law. Electronically signed by: Faisal Azul M.D. 10/15/2022 4:56 PM Chest X-Ray 10/16/22 16:32 XR chest 1V portable CLINICAL HISTORY: dyspnea, shortness of breath TECHNIQUE: Single frontal radiograph of the chest was obtained. Comparison: Comparison is made to chest radiograph 10/11/2022 FINDINGS: No lines and tubes are seen. Cardiomegaly is noted. The aortic arch is calcified. Faint airspace opacities are seen in the bilateral lower lungs. Trace left pleural effusion. Likely small right pleural effusion as well. IMPRESSION: Bilateral pleural effusions with underlying atelectasis. Superimposed pneumonia cannot be entirely excluded. ACT 112: Negative or not required by law. Electronically signed by: Patrick Warner M.D. 10/16/2022 8:02 PM
--- NOTE | 2022-10-18 11:01 | Nephrology Progress Note ---
Date of Service October 18, 2022 Assessment & Plan (1) LESLIE (acute kidney injury): Plan: * LESLIE/CKD vs progressive CKD in the setting of mild CHF, pneumonia * 1st run HD completed 10/14/22. 3rd treatment performed 10/16 without complications * AVF functioning well * Monitor OR daily, UO per shift * Will evaluate in the AM, potential HD tomorrow versus Wednesday to be determined in the AM (2) Chronic kidney disease, stage V: Plan: * 08/13 Baseline Cr 3.98 w/ EGFR 11 cc/min. Renal impairment is on the basis of renal vascular disease. 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 Bridget Martini at [facility] [place] * L forearm AVF created 03/[address] Love * Outpatient HD to be arranged at [facility] under the care of Dr. Berman (3) Abdominal pain: Plan: * 10/13/22 Abdominal MRA (no contrast) - no evidence of SMA stenosis/occlusion. 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 Diffuse aortic atherosclerosis * Vascular surgery consultation suggested no intervention at si time. * GI consult pending * I reviewed the plan of care with Dr. 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 Coli. Currently on Ceftriaxone therapy (7) Hypertension: Plan: * Continue amlodipine, carvedilol, hydralazine * Carvedilol increased for hypertension * Expect BP will improve with HD/UF (8) Cardiac murmur: Plan: * 10/13/22 Echocardiogram: LVEF 60-65%, severe aortic stenosis Admission and Anticipated Discharge Date Admission Date: October 12, 2022 Subjective No acute events overnight. Reports persistent abdominal pain. BP elevated. Carvedilol increased. GI consulted. Expressed concerns regarding anemia and potential need for blood transfusion. Toña describes feeling tired and weak similar to episodes of anemia in the past. Review of Systems Review of Systems: All systems reviewed & are unremarkable except as noted in HPI & below Physical Exam Constitutional: well developed; no acute distress Eyes: + anicteric sclerae; no scleral abnormality Neck: trachea midline, no thyromegaly Respiratory: normal respiratory effort; not tachypneic Cardiovascular: Rate/Rhythm: regular rate and regular rhythm Extremities: + edema (trace LE swelling) and + AV fistula Musculoskeletal: Extremities: no cyanosis and no clubbing Skin: normal turgor; no rashes and no jaundice Neurologic: awake; not confused Psychiatric: Orientation: alert and oriented x 3 Results & Data Vital Signs (Past 12 Hours) Vital Signs Temp Pulse Pulse Resp BP Pulse Ox O2 Del Method 10/18/22 08:00 Nasal Cannula 10/18/22 08:13 36.7 C 60 20 186/63 H 95 Nasal Cannula 10/18/22 07:55 63 10/18/22 07:14 67 18 98 Nasal Cannula 10/18/22 03:00 36.7 C 65 19 173/65 H 98 Nasal Cannula 10/18/22 00:00 61 10/17/22 23:30 61 10/17/22 23:00 36.8 C 64 20 175/67 H 95 Nasal Cannula O2 Flow Rate 10/18/22 08:00 2 10/18/22 08:13 2 10/18/22 07:55 10/18/22 07:14 3 10/18/22 03:00 2 10/18/22 00:00 10/17/22 23:30 10/17/22 23:00 2 Laboratory Results Laboratory Results - last 24 hr 10/17/22 10/17/22 10/17/22 15:47 15:48 15:48 WBC RBC Hgb Hct MCV MCH MCHC RDW Std Deviation RDW Coeff of Kris Plt Count MPV Absolute Nucleated RBC Nucleated RBC % (auto) VBG pH 7.34 L VBG pCO2 47 VBG pO2 53 VBG HCO3 25 VBG O2 Saturation 84.4 VBG Base Excess -0.8 Sodium Potassium Chloride Carbon Dioxide Anion Gap BUN Creatinine Est Cr Clr Drug Dosing Est GFR ( Amer) Est GFR (Non-Af Amer) BUN/Creatinine Ratio Glucose Lactate Calcium Magnesium 1.8 Ammonia 22.0 C-Reactive Protein 0.82 H Lipase 19 10/17/22 10/18/22 10/18/22 15:48 05:34 05:34 WBC 7.42 RBC 2.58 L Hgb 7.7 L Hct 23.8 L MCV 92.2 MCH 29.8 MCHC 32.4 RDW Std Deviation 56.6 H RDW Coeff of Kris 17.2 H Plt Count 201 MPV 10.3 Absolute Nucleated RBC 0.10 Nucleated RBC % (auto) 1.3 VBG pH VBG pCO2 VBG pO2 VBG HCO3 VBG O2 Saturation VBG Base Excess Sodium 134 L Potassium 3.6 Chloride 99 Carbon Dioxide 26 Anion Gap 9 BUN 45 H Creatinine 3.53 H D Est Cr Clr Drug Dosing 14.2 Est GFR ( Amer) 13.7 Est GFR (Non-Af Amer) 11.8 BUN/Creatinine Ratio 12.7 Glucose 78 Lactate 1.3 Calcium 8.3 L Magnesium Ammonia C-Reactive Protein Lipase PG Care Time/CCT Total # of Minutes Spent Total Time Spent with Patient: Total time spent is greater than 50% in coordination of care (as documented) at patient's floor/unit and/or counseling patient: Coding Level of Care Code 69803 SUB INP/OBS CARE 3/50MIN Diagnoses LESLIE (acute kidney injury) N17.9 Chronic kidney disease, stage V N18.5 Abdominal pain R10.9 Anemia D64.9 Anemia type: unspecified type Pneumonia J18.9 Cystitis N30.90 Hypertension I10 Hypertension type: unspecified Cardiac murmur R01.1 (4) Anemia Anemia type: unspecified type Qualified Code(s): D64.9 - Anemia, unspecified (7) Hypertension Hypertension type: unspecified Qualified Code(s): I10 - Essential (primary) hypertension
--- NOTE | 2022-10-18 11:30 | Psychiatric Consultation ---
Date of Consultation October 18, 2022 Impression / Recommendations Impression 77 yo female with no formal psych hx with worsening of anxiety during hospitalization. Likely multifactorial--brief delirium from Ativan, ?serotonin issues with pain med, steroids, etc. trazodone increased last pm with some benefit. Currently does not want any additional intervention. (1) Anxiety: (2) Insomnia: Plan continue trazodone, could certainly increase to 100 mg hs with 50 mg if willing as sleep remains disrupted on 125 mg total hs dose. she is currently not wanting to start any SSRI or other treatment, truthfully given hx of sensitivity to medications if willing to try anything buspar 2.5 am and afternoon with slow titration may be best tolerated and easier to start and stop. avoid benzos feel free to contact service if additional questions/concerns Psych History Identifying Data 77 yo female from [place], admit 10/12 with multiple medical concerns. Consult placed 10/[address] Loera. Chief Complaint "I'm not nuts". History of Present Illness Date of Service: October 17, 2022 Consult received, chart reviewed, case discussed with Dr. Ortiz. Patient sensitive to multiple medications, recently started dialysis, tapering steroids for COPD exacerbation, and anxiety. Hasn't slept much in past 5 days. Received low dose Ativan a few days back which resulted in confusion. Patient would like medication for anxiety but also needs sleep regulation. Normal QTc, resolving hyponatremia, and significantly elevated Cr. Liaison reports talkative, anxious, no hx yuri or formal psych hx. Will start with increase in trazodone and reassess anxiety. trazodone does not typically required renal dosing but will be conservative given respiratory comorbidity. Will increase trazodone to 75 mg hs with an additional 25 mg available prn. Full consult to follow. Today the patient states she continues to feel better now that steroids have been decreased and attributes most of her anxiety to communication issues around her main health concerns and adjustment to starting hemodialysis unexpectedly. She likes trazodone and finds it helpful. She again denies any hx of SI/HI/suicide attempts/inpatient stays. Lists multiple supports via family and neighbors in apartment complex where she has resided for 20 years. She misses her cocalico cat. Allergies Allergy/AdvReac Type Severity Reaction Status Date / Time sulfamethoxazole Allergy Severe ELEVATED Verified 09/25/22 06:18 POTASSIUM, BRADYCARDIC "HEART TRIED TO SHUT DOWN" trimethoprim Allergy Severe ELEVATED Verified 09/25/22 06:18 POTASSIUM, BRADYCARDIC "HEART TRIED TO SHUT DOWN" codeine Allergy Intermediate RASH, Verified 09/25/22 06:18 RAPID HEART BEAT gabapentin Allergy Intermediate HALLUCINATIONS; Verified 09/25/22 06:18 SCREAMING/YELLING hydromorphone [From Dilaudid] AdvReac Intermediate Hallucinati Verified 09/25/22 06:18 ng morphine AdvReac Unknown unsure Verified 09/25/22 06:18 "might be okay to take" oxycodone [From Percocet] AdvReac Unknown unsure Verified 09/25/22 06:18 "might be okay to take" Home Medications Medication Instructions Recorded Confirmed Type atorvastatin 40 mg tablet 40 mg PO QPM 09/16/18 09/25/22 History calcium carbonate 600 mg-vitamin 1 cap PO QAM 09/16/18 09/25/22 History D3 5 mcg (200 unit) capsule (Calcium 600 + D(3)) hydralazine 100 mg tablet 100 mg PO BID 04/19/19 09/25/22 History amlodipine 10 mg tablet 10 mg PO QAM 10/10/20 09/25/22 History carvedilol 3.125 mg tablet 3.125 mg PO BID 10/10/20 09/25/22 History ascorbic acid (vitamin C) 500 mg 500 mg PO QAM 12/10/20 09/25/22 History tablet (Vitamin C) multivitamin 1 tab PO DAILY 12/10/20 09/25/22 History B-complex with vitamin C 1 tab PO QAM 02/17/21 09/25/22 History nitroglycerin 0.4 mg sublingual 0.4 mg sublingual DIRECTED PRN 03/30/21 09/25/22 History tablet Chest Pain pantoprazole 40 mg tablet,delayed 40 mg PO BID #60 tabs 04/01/21 09/25/22 Rx release albuterol sulfate 90 mcg/actuation 2 puff inhalation UD PRN Shortness 04/06/21 09/25/22 History aerosol inhaler Of Breath Or Wheezing furosemide 20 mg tablet 20 mg PO DAILY #90 tabs 06/16/22 09/25/22 Rx magnesium oxide 500 mg tablet 500 mg PO DAILY #30 tabs 06/16/22 09/25/22 Rx trazodone 50 mg tablet 50 mg PO HS PRN Sleep 06/16/22 09/25/22 History benzonatate 100 mg capsule 100 mg PO BID PRN Unknown 07/01/22 09/25/22 History lidocaine 4 % topical patch 1 patch topical DAILY PRN Pain 07/01/22 09/25/22 History tramadol 50 mg tablet 50 mg PO TID PRN pain #60 tabs 07/01/22 09/25/22 Rx levothyroxine 25 mcg tablet 25 mcg PO QAM #90 tabs 09/25/22 Rx vitamin E 50 unit capsule 50 unit PO DAILY 09/25/22 09/25/22 History Patient History Medical History Anemia Anemia due to GI blood loss AV fistula left arm>not using now AVM (arteriovenous malformation) AVM (arteriovenous malformation) of small bowel, acquired with hemorrhage Bereavement due to life event Blood in stool resolved Cardiac murmur Carotid stenosis, left Left carotid endarterectomy 11/2020 [facility] with Dr Love Chronic back pain Chronic kidney disease, stage 4 (severe) [facility] Chronic obstructive pulmonary disease inhaler/nebulizer prn Chronic obstructive pulmonary disease CKD (chronic kidney disease) stage 4, GFR 15-29 ml/min DVT prophylaxis Encounter for pre-operative examination GERD (gastroesophageal reflux disease) GI bleed Hemorrhagic gastritis Hx of gout Hyperlipidemia Hypertension Hypothyroidism Melena Mesenteric artery stenosis Peripheral arterial disease Renal artery stenosis Symptomatic anemia Tobacco use disorder Tobacco use disorder Surgical History History of bilateral cataract extraction History of carotid endarterectomy (12/10/20) [facility] with Dr Love History of carpal tunnel release of both wrists History of cholecystectomy History of colonoscopy 11/05/21 [facility] History of colonoscopy with polypectomy History of esophagogastroduodenoscopy (EGD) History of laminectomy lumbar History of repair of right rotator cuff History of tooth extraction all teeth removed Family History Mother Family history of diabetes mellitus Brother Family history of diabetes mellitus Sister Family history of diabetes mellitus Other No family history of adverse response to anesthesia Social History Smoking Status: Current every day smoker Tobacco Type: Cigarettes Age Started Using Tobacco: 20; Cigarettes Per Day: 20 PER DAY; Second Hand Exposure: Yes; Do You Dip or Chew Tobacco: No; Hx Alcohol Use: Yes Alcohol type: wine Hx Substance Use: No Preferred Language: Bengali Communication Ability: Effective Assistant At Surgery Required: No Beliefs That Will Affect Care: None marital status: Current Living Situation: Alone current occupational status: 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 [employer] How many Children do You have: 2 Feels Safe at Home: Yes Childhood Exposure to Second-Hand Smoke: No Assistive Devices: Walker Physical Exam Psychiatric: Orientation: alert and oriented x 3 Apperance: appropriately dressed and appropriately groomed Eye Contact: good eye contact Motor Behavior: no abnormal motor movements Speech: normal rate/rhythm/volume of speech Affect: euthymic affect Mood: no depressed mood Thought Process: + circumstantial thought process Thought Content: reality based without delusions Suicidal Thoughts: denies suicidal thoughts Homicidal Thoughts: denies homicidal thoughts Hallucinations: no auditory hallucinations and no visual hallucinations Cognition: attention grossly intact and language grossly intact Estimated Intelligence: consistent with education level Vital Signs (Past 24 Hours): Last Vital Signs Temp 36.7 C 10/18/22 08:13 Pulse 60 10/18/22 11:21 Resp 18 10/18/22 11:21 BP 186/63 H 10/18/22 08:13 Pulse Ox 95 10/18/22 11:21 O2 Del Method Nasal Cannula 10/18/22 11:21 O2 Flow Rate 2 10/18/22 11:21 Review of Systems All systems reviewed & are unremarkable except as noted in HPI & below (still some SOB, abdominal pain resolving) Results & Data (PSY) Laboratory Results 10/18/22 10/18/22 10/17/22 Range/Units 05:34 05:34 15:48 WBC 7.42 (4.8-10.8) K/ul RBC 2.58 L (4.20-5.40) M/uL Hgb 7.7 L (12.0-16.0) g/dl Hct 23.8 L (37.0-47.0) % MCV 92.2 (80.0-100.0) fL MCH 29.8 (25.0-34.0) pg MCHC 32.4 (32.0-36.0) g/dL RDW Std Deviation 56.6 H (36.4-46.3) fL RDW Coeff of Kris 17.2 H (11.5-14.5) % Plt Count 201 (130-400) K/uL MPV 10.3 (9.4-12.4) fL Absolute Nucleated RBC 0.10 (0-0.12) K/uL Nucleated RBC % (auto) 1.3 % VBG pH (7.36-7.41) VBG pCO2 (38-50) mmHg VBG pO2 mmHg VBG HCO3 mmol/L VBG O2 Saturation % VBG Base Excess mEq/L Sodium 134 L (136-145) mmol/L Potassium 3.6 (3.5-5.1) mmol/L Chloride 99 (98-107) mmol/L Carbon Dioxide 26 (21-32) mmol/L Anion Gap 9 (3-11) BUN 45 H (6-23) mg/dl Creatinine 3.53 H D (0.6-1.2) mg/dl Est Cr Clr Drug Dosing 14.2 ml/min Est GFR ( Amer) 13.7 ml/min Est GFR (Non-Af Amer) 11.8 ml/min BUN/Creatinine Ratio 12.7 (10-20) Glucose 78 (70-99(Fasting)) mg/dl Lactate 1.3 (0.4-2.0) mmol/L Calcium 8.3 L (8.6-10.3) mg/dl Magnesium (1.7-2.4) mg/dl Ammonia (18-72) umol/L C-Reactive Protein (0-0.5) mg/dl Lipase (11-82) U/L 10/17/22 10/17/22 10/17/22 Range/Units 15:48 15:48 15:47 WBC (4.8-10.8) K/ul RBC (4.20-5.40) M/uL Hgb (12.0-16.0) g/dl Hct (37.0-47.0) % MCV (80.0-100.0) fL MCH (25.0-34.0) pg MCHC (32.0-36.0) g/dL RDW Std Deviation (36.4-46.3) fL RDW Coeff of Kris (11.5-14.5) % Plt Count (130-400) K/uL MPV (9.4-12.4) fL Absolute Nucleated RBC (0-0.12) K/uL Nucleated RBC % (auto) % VBG pH 7.34 L (7.36-7.41) VBG pCO2 47 (38-50) mmHg VBG pO2 53 mmHg VBG HCO3 25 mmol/L VBG O2 Saturation 84.4 % VBG Base Excess -0.8 mEq/L Sodium (136-145) mmol/L Potassium (3.5-5.1) mmol/L Chloride (98-107) mmol/L Carbon Dioxide (21-32) mmol/L Anion Gap (3-11) BUN (6-23) mg/dl Creatinine (0.6-1.2) mg/dl Est Cr Clr Drug Dosing ml/min Est GFR ( Amer) ml/min Est GFR (Non-Af Amer) ml/min BUN/Creatinine Ratio (10-20) Glucose (70-99(Fasting)) mg/dl Lactate (0.4-2.0) mmol/L Calcium (8.6-10.3) mg/dl Magnesium 1.8 (1.7-2.4) mg/dl Ammonia 22.0 (18-72) umol/L C-Reactive Protein 0.82 H (0-0.5) mg/dl Lipase 19 (11-82) U/L Medications Administered Acetaminophen (Acetaminophen 325 Mg Tab) 650 mg PO Q4H PRN PRN Reason: Pain or Fever Stop: 11/11/22 06:15 Last Admin: 10/16/22 08:30 Dose: 650 mg Documented By: MP Al Hydrox/Mg Hydrox/Simethicone (Aluminum/Magnesium Susp 30 Ml Udc) 15 ml PO Q4H PRN PRN Reason: Dyspepsia Stop: 11/11/22 06:15 Last Admin: 10/13/22 13:37 Dose: 15 ml Documented By: ES Albuterol (Albuterol Hfa 8 Gm Inhaler) 1 puffs INH QIDR [facility]; Protocol Stop: 11/16/22 14:59 Last Admin: 10/18/22 11:20 Dose: 1 puffs Documented By: Admin: 10/18/22 07:13 Dose: 1 puffs Documented By: Admin: 10/17/22 19:27 Dose: 1 puffs Documented By: Admin: 10/17/22 16:48 Dose: 1 puffs Documented By: JACKI Amlodipine Besylate (Amlodipine Besylate 5 Mg Tab) [facility] Stop: 11/11/22 08:59 Last Admin: 10/18/22 08:10 Dose: 10 mg Documented By: Admin: 10/17/22 08:42 Dose: 10 mg Documented By: Admin: 10/16/22 13:46 Dose: 10 mg Documented By: Admin: 10/15/22 08:06 Dose: 10 mg Documented By: Admin: 10/14/22 09:37 Dose: 10 mg Documented By: Admin: 10/13/22 08:39 Dose: 10 mg Documented By: Admin: 10/12/22 09:08 Dose: 10 mg Documented By: PHIL Aspirin (Aspirin 81 Mg Ectab) 81 mg PO [facility] Stop: 11/14/22 08:59 Last Admin: 10/18/22 08:10 Dose: 81 mg Documented By: Admin: 10/17/22 08:42 Dose: 81 mg Documented By: Admin: 10/16/22 08:09 Dose: 81 mg Documented By: Admin: 10/15/22 08:22 Dose: 81 mg Documented By: SRAVAN Atorvastatin Calcium (Atorvastatin 40 Mg Tab) 40 mg PO QPM [facility] Stop: 11/11/22 20:59 Last Admin: 10/17/22 19:52 Dose: 40 mg Documented By: Admin: 10/16/22 20:02 Dose: 40 mg Documented By: Admin: 10/15/22 21:13 Dose: 40 mg Documented By: Admin: 10/14/22 21:13 Dose: 40 mg Documented By: AMAlan Admin: 10/13/22 20:45 Dose: 40 mg Documented By: Admin: 10/12/22 19:59 Dose: 40 mg Documented By: SG Benzonatate (Benzonatate 100 Mg Capsule) 100 mg PO BID PRN PRN Reason: Unknown Stop: 11/11/22 06:15 Last Admin: 10/16/22 08:30 Dose: 100 mg Documented By: Admin: 10/14/22 19:01 Dose: 100 mg Documented By: Admin: 10/13/22 05:37 Dose: 100 mg Documented By: Admin: 10/12/22 12:38 Dose: 100 mg Documented By: JESUS ALBERTO Carvedilol (Carvedilol 6.25 Mg Tab) 6.25 mg PO BIDM [facility] Stop: 11/17/22 07:59 Last Admin: 10/18/22 08:08 Dose: 6.25 mg Documented By: CANDICE Famotidine (Famotidine 20 Mg Tab) 20 mg PO DAILY [facility] Stop: 11/16/22 08:59 Last Admin: 10/18/22 08:10 Dose: 20 mg Documented By: Admin: 10/17/22 08:42 Dose: 20 mg Documented By: MEG Heparin Sodium (Porcine) (Heparin Sod 5,000 Unit/0.5 Ml Vial) 5,000 units SQ Q12 [facility] Stop: 11/11/22 08:59 Last Admin: 10/18/22 08:10 Dose: 5,000 units Documented By: Admin: 10/17/22 19:55 Dose: 5,000 units Documented By: Admin: 10/17/22 08:43 Dose: 5,000 units Documented By: Admin: 10/16/22 20:02 Dose: 5,000 units Documented By: Admin: 10/16/22 08:10 Dose: 5,000 units Documented By: Admin: 10/15/22 21:14 Dose: 5,000 units Documented By: Admin: 10/15/22 08:13 Dose: 5,000 units Documented By: Admin: 10/14/22 21:13 Dose: 5,000 units Documented By: Admin: 10/14/22 09:33 Dose: 5,000 units Documented By: Admin: 10/13/22 20:45 Dose: 5,000 units Documented By: Admin: 10/13/22 08:40 Dose: 5,000 units Documented By: Admin: 10/12/22 20:05 Dose: 5,000 units Documented By: Admin: 10/12/22 09:09 Dose: 5,000 units Documented By: PHIL Hydralazine HCl (Hydralazine Tab 50 Mg Tab) 100 mg PO BID [facility] Stop: 11/11/22 08:59 Last Admin: 10/18/22 08:10 Dose: 100 mg Documented By: Admin: 10/17/22 19:49 Dose: 100 mg Documented By: Admin: 10/17/22 08:42 Dose: 100 mg Documented By: Admin: 10/16/22 20:02 Dose: 100 mg Documented By: Admin: 10/16/22 13:47 Dose: 100 mg Documented By: Admin: 10/15/22 21:13 Dose: 100 mg Documented By: Admin: 10/15/22 11:30 Dose: 100 mg Documented By: Admin: 10/15/22 09:03 Dose: Not Given Documented By: Admin: 10/14/22 21:13 Dose: 100 mg Documented By: Admin: 10/14/22 09:41 Dose: Not Given Documented By: Admin: 10/13/22 20:45 Dose: 100 mg Documented By: Admin: 10/13/22 08:39 Dose: 100 mg Documented By: Admin: 10/12/22 20:00 Dose: 100 mg Documented By: Admin: 10/12/22 09:08 Dose: 100 mg Documented By: PHIL Ceftriaxone Sodium 2,000 mg/ (Dextrose) 70 mls @ 100 mls/hr IV Q24H [facility]; Protocol Stop: 10/19/22 08:59 Last Infusion: 10/18/22 10:00 Dose: 0 mls/hr Documented By: Admin: 10/18/22 08:14 Dose: 100 mls/hr Documented By: Infusion: 10/17/22 09:25 Dose: 0 mls/hr Documented By: Admin: 10/17/22 08:40 Dose: 100 mls/hr Documented By: Infusion: 10/16/22 14:41 Dose: 0 mls/hr Documented By: Admin: 10/16/22 13:50 Dose: 100 mls/hr Documented By: Infusion: 10/15/22 09:32 Dose: 0 mls/hr Documented By: Infusion: 10/15/22 09:02 Dose: 100 mls/hr Documented By: Infusion: 10/15/22 08:03 Dose: 0 mls/hr Documented By: Admin: 10/15/22 07:51 Dose: 100 mls/hr Documented By: Infusion: 10/14/22 11:27 Dose: 0 mls/hr Documented By: Admin: 10/14/22 09:39 Dose: 100 mls/hr Documented By: Infusion: 10/13/22 09:29 Dose: 0 mls/hr Documented By: Admin: 10/13/22 08:41 Dose: 100 mls/hr Documented By: Infusion: 10/12/22 10:03 Dose: 0 mls/hr Documented By: Admin: 10/12/22 09:09 Dose: 100 mls/hr Documented By: PHIL Doxycycline Hyclate 100 mg/ (Dextrose) 110 mls @ 50 mls/hr IV Q12H [facility] Stop: 10/22/22 19:59 Last Admin: 10/18/22 09:51 Dose: 50 mls/hr Documented By: Infusion: 10/18/22 09:51 Dose: 0 mls/hr Documented By: Infusion: 10/17/22 22:01 Dose: 0 mls/hr Documented By: Admin: 10/17/22 19:51 Dose: 50 mls/hr Documented By: Infusion: 10/17/22 11:03 Dose: 0 mls/hr Documented By: Admin: 10/17/22 08:41 Dose: 50 mls/hr Documented By: Infusion: 10/16/22 22:31 Dose: 0 mls/hr Documented By: Admin: 10/16/22 20:02 Dose: 50 mls/hr Documented By: Infusion: 10/16/22 16:33 Dose: 0 mls/hr Documented By: Admin: 10/16/22 13:50 Dose: 50 mls/hr Documented By: Infusion: 10/15/22 23:20 Dose: 0 mls/hr Documented By: Admin: 10/15/22 21:10 Dose: 50 mls/hr Documented By: EZRA Ipratropium [place] (Ipratropium [place] Hfa Inhaler) 1 puffs INH QIDR [facility]; Protocol Stop: 11/16/22 14:59 Last Admin: 10/18/22 11:20 Dose: 1 puffs Documented By: CRSudha Admin: 10/18/22 07:14 Dose: 1 puffs Documented By: Admin: 10/17/22 19:28 Dose: 1 puffs Documented By: Admin: 10/17/22 16:48 Dose: 1 puffs Documented By: JACKI Levothyroxine Sodium (Levothyroxine Sodium 25 Mcg Tablet) [facility] Stop: 11/11/22 08:59 Last Admin: 10/18/22 05:38 Dose: 25 mcg Documented By: Admin: 10/17/22 06:14 Dose: 25 mcg Documented By: Admin: 10/16/22 05:49 Dose: 25 mcg Documented By: Admin: 10/15/22 05:53 Dose: 25 mcg Documented By: Admin: 10/14/22 05:51 Dose: 25 mcg Documented By: Admin: 10/13/22 05:40 Dose: 25 mcg Documented By: Admin: 10/12/22 08:01 Dose: 25 mcg Documented By: CLEMENT Lidocaine (Lidocaine 5% 1 Patch) 1 patch TD DAILY PRN PRN Reason: Pain Stop: 11/11/22 06:24 Last Admin: 10/16/22 09:43 Dose: 1 patch Documented By: YOU Melatonin (Melatonin 3 Mg Tab) 3 mg PO [facility] Stop: 11/14/22 21:04 Last Admin: 10/17/22 19:50 Dose: 3 mg Documented By: Admin: 10/16/22 20:02 Dose: 3 mg Documented By: Admin: 10/15/22 21:37 Dose: 3 mg Documented By: EZRA Menthol (Cough Drop (Sugar Free) Marge 24 Marge/1 Box) 1 marge BUCCAL PRN PRN PRN Reason: Sore Throat Stop: 11/11/22 18:45 Last Admin: 10/12/22 19:59 Dose: 1 marge Documented By: SG Miscellaneous (Remove Nicoderm Patch) 1 each N/A DAILY@0859 [facility] Stop: 11/12/22 08:58 Last Admin: 10/18/22 08:12 Dose: 1 each Documented By: Admin: 10/17/22 08:41 Dose: 1 each Documented By: Admin: 10/16/22 09:44 Dose: Not Given Documented By: Admin: 10/15/22 08:00 Dose: 1 each Documented By: Admin: 10/14/22 09:36 Dose: 1 each Documented By: Admin: 10/13/22 08:40 Dose: 1 each Documented By: MARLO Nicotine (Nicotine 21 Mg/24 Hr Tdsy) 21 mg TD QAM [facility] Stop: 11/11/22 12:59 Last Admin: 10/18/22 08:10 Dose: 21 mg Documented By: Admin: 10/17/22 08:41 Dose: 21 mg Documented By: Admin: 10/16/22 08:11 Dose: 21 mg Documented By: Admin: 10/15/22 07:59 Dose: 21 mg Documented By: Admin: 10/14/22 09:36 Dose: 21 mg Documented By: Admin: 10/13/22 08:40 Dose: 21 mg Documented By: Admin: 10/12/22 16:12 Dose: 21 mg Documented By: JESUS ALBERTO Ondansetron HCl (Ondansetron Inj 2 Mg/Ml 2 Ml Vial) 4 mg IV Q6H PRN PRN Reason: Nausea And Vomiting Stop: 11/15/22 16:24 Last Admin: 10/16/22 17:28 Dose: 4 mg Documented By: GINGER Pantoprazole Sodium (Pantoprazole 40 Mg Tab) 40 mg PO BID [facility] Stop: 11/11/22 08:59 Last Admin: 10/18/22 08:11 Dose: 40 mg Documented By: Admin: 10/17/22 19:50 Dose: 40 mg Documented By: Admin: 10/17/22 08:42 Dose: 40 mg Documented By: Admin: 10/16/22 20:02 Dose: 40 mg Documented By: Admin: 10/16/22 08:12 Dose: 40 mg Documented By: Admin: 10/15/22 21:12 Dose: 40 mg Documented By: Admin: 10/15/22 08:04 Dose: 40 mg Documented By: Admin: 10/14/22 21:13 Dose: 40 mg Documented By: Admin: 10/14/22 09:40 Dose: 40 mg Documented By: Admin: 10/13/22 20:45 Dose: 40 mg Documented By: Admin: 10/13/22 08:39 Dose: 40 mg Documented By: Admin: 10/12/22 19:59 Dose: 40 mg Documented By: Admin: 10/12/22 09:08 Dose: 40 mg Documented By: PHIL Polyethylene Glycol (Polyethylene (Miralax) 17 Gm Pack) 17 gm PO DAILY [facility] Stop: 11/11/22 08:59 Last Admin: 10/18/22 08:11 Dose: Not Given Documented By: Admin: 10/17/22 08:52 Dose: Not Given Documented By: Admin: 10/16/22 08:13 Dose: Not Given Documented By: Admin: 10/15/22 17:12 Dose: 17 gm Documented By: Admin: 10/15/22 11:36 Dose: Not Given Documented By: Admin: 10/14/22 10:03 Dose: 17 gm Documented By: Admin: 10/13/22 08:40 Dose: 17 gm Documented By: Admin: 10/12/22 09:21 Dose: 17 gm Documented By: PHIL Prednisone (Prednisone 20 Mg Tab) [facility] [place] Stop: 11/17/22 08:59 Last Admin: 10/18/22 08:11 Dose: 40 mg Documented By: CANDICE Sennosides (Senna 8.6 Mg Tab) 17.2 mg [facility] [place] Stop: 11/11/22 08:59 Last Admin: 10/18/22 08:11 Dose: Not Given Documented By: Admin: 10/17/22 08:42 Dose: 17.2 mg Documented By: Admin: 10/16/22 08:13 Dose: 17.2 mg Documented By: Admin: 10/15/22 08:05 Dose: 17.2 mg Documented By: Admin: 10/14/22 11:55 Dose: 17.2 mg Documented By: Admin: 10/13/22 08:39 Dose: 17.2 mg Documented By: Admin: 10/12/22 10:52 Dose: 17.2 mg Documented By: JESUS ALBERTO Simethicone (Simethicone 80 Mg Chew) 40 mg PO Q6H PRN PRN Reason: Flatulence Stop: 11/13/22 23:37 Last Admin: 10/15/22 00:16 Dose: 40 mg Documented By: AMAlan Trazodone HCl (Trazodone Hcl 50 Mg Tab) 75 mg PO HS [facility] Stop: 11/16/22 20:59 Last Admin: 10/17/22 19:51 Dose: 50 mg Documented By: MAGO Trazodone HCl (Trazodone Hcl 50 Mg Tab) 25 mg PO HS PRN PRN Reason: Insomnia Stop: 11/16/22 16:03 Last Admin: 10/18/22 01:39 Dose: 25 mg Documented By: MAGO Coding Level of Care Code 30748 [facility] Lvl 2 Diagnoses Anxiety F41.9 Insomnia G47.00
--- NOTE | 2022-10-18 17:22 | Hospitalist Progress Note ---
Date of Service October 18, 2022 Assessment & Plan (1) Left sided abdominal pain: Plan: IMPROVED; not fully resolved, but definitely improved. Patient has had EXTENSIVE work-up for her abdominal complaints over the last 6- 12 months. Follows closely with Kathi ENGEL at [facility]. Numerous CTs a/p, capsule endo, colonoscopy, small bowel follow-through studies, etc have been undertaken. Constipation has been noted on most studies, but this should not cause weight loss of 20-25 pounds nor the severity of her post-prandial complaints. Of note - 2020 MRA abdomen showed the following - "Focal stenosis of approximately 80% at the origin of the celiac artery. There is also focal stenosis of approximately 70% at the origin of the superior mesenteric artery. There are focal areas of high-grade stenosis within the bilateral proximal renal arteries measuring approximately 80% on the left and 90% on the right. The mid to distal superior mesenteric artery appears patent. The common hepatic artery is likely patent." CTA a/p this admission with 70% stenosis of celiac artery, occluded SHARI, and mildly stenosed SMA. Patient was seen by Dr Love from [facility]. At this time no plans for arteriogram or intervention on the celiac artery. See below in #2. Patient completed a golLaserLeaply bowel prep. She started this PM of 10/16. She had copious stool Wednesday PM, all day yesterday, and continues with large amounts of stool even today. The output since Wednesday pm confirms how severe her constipation has been. All abdominal symptoms IMPROVED. Pain not fully resolved but improved. Cont PPI BID Cont once daily H2 mona zofran prn Appreciate Dr Edwards's consultation from [facility]. No new recommendations at this time. Diet today advanced to renal diet. (2) Celiac artery stenosis: Plan: At minimum the celiac artery is 70-80% stenosed based on past and current imaging (CTA a/p performed this admission with 70% stenosis). She has lost at least 12kg of weight since October 2021 (25+ pounds). She has stopped eating solids for fear of eating -- she consistently gets post- prandial pain with eating. Dr Love saw in consult 10/16. Feels that abdominal pain is unlikely to be from celiac artery stenosis - cannot rule it out 100%, but other factors are more likely (severe constipation, gaseous distension, etc). He plans to follow her during her hospital stay in the event her post-prandial pain persists. GI symptoms & pain improved. Not 100% resolved but improved with golytely prep - see #1 above. Cont asa 81mg daily. Cont lipitor 40mg daily. (3) Acute encephalopathy: Plan: likely metabolic and toxic resolved metabolic - pneumonia, hospital psychosis, pain, etc toxic - tramadol (discontinued), steroids, etc stopped tramadol cont melatonin 3mg HS to help with sleep-wake circadian rhythm wean steroids as tolerated treat pneumonia cont trazodone HS (4) Acute blood loss anemia: Plan: hemoglobin <8 today but no signs of active bleeding may be lab variation rather than true drop recheck CBC in am (5) Pneumonia: Plan: b/l basilar Cont ceftriaxone - day #7 Cont doxy - day #7 of atypical coverage (had been on zithromax initially) Stop IV abx after today's doses Continue supplemental oxygen prn Continue combivent inhaler qid Tessalon Perles as needed for cough (6) COPD exacerbation: Plan: Improving Cont to wean PO prednisone - 40mg today, 40mg tomorrow, then 30mg x 2 days, and so forth Cont combivent QID (7) Chronic kidney disease, stage V: Plan: baseline CrCl <15 baseline creatinine has been 4 to 4.5 up until a few weeks ago and now is >5 she developed acidemia and hyperkalemia yesterday thus, HD initiated earlier this week has had 2 brief HD sessions to date along with a full treatment on 10/16 total of ~3000cc of UF obtained over the course of those 3 treatments appreciate nephrology assistance BMP in am Dr Brandt to decide tomorrow if HD is needed on Wednesday or can wait until Wednesday (8) Anemia: Plan: 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 and also component of acute blood loss anemia (lost blood during an HD session earlier this week) B12, folate, Fe studies adequate TSH wnl Heme neg stool in light of concern for mesenteric ischemia Tx 1 unit PRBCs 10/13/22 follows with Maria D BARTON in the [facility] office for chronic procrit & anemia management Dr Brandt advising epogen 10,000 units SC x 1 today -- will order (9) Hypertension: Plan: Continue amlodipine 10 mg daily Continue coreg 6.25mg BID - increased last pm Continue hydralazine BID BPs labile - pain, anxiety, etc - will drive some of the high readings BPs should also improve as volume status improves (10) Constipation: Plan: SEVERE s/p golytely prep 10/16 and 10/17 STILL having BMs 48 hours later ! speaks to the severity of her constipation overall improving though was just started on Linzess as an outpatient by Kathi Bland about 3-4 weeks ago likely will need larger dose of Linzess defer to GI (11) Hyperkalemia: Plan: resolved s/p HD (12) Hyponatremia: Plan: 2nd to CKD stage 5/development of ESRD resolved w/ serial HD sessions BMP am (13) GERD (gastroesophageal reflux disease): Plan: improved cont PPI bid + pepcid once daily (14) Hypothyroidism: Plan: Continue levothyroxine 25 MCG g daily TSH is normal (15) Hyperlipidemia: Plan: Continue atorvastatin 40 mg daily (16) Aortic stenosis: Plan: severe with valve area <1cm^2 s2 clearly heard no signs it is causing hemodynamic issues or symptoms [id number] this will need to be addressed in the future patient made aware of her diagnosis (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, acquired with hemorrhage: Plan: known intestinal AVMs as seen on capsule endoscopy earlier this year she has NOT had any blood per rectum this admission (18) Tobacco dependence: Plan: nicoderm patch 21mg/day (19) Anxiety: Plan: appreciate psych input cont trazodone at HS anxiety improved with stopping duonebs + IV solumedrol (20) Insomnia: Plan: cont melatonin cont trazodone - increase to 100mg HS with 25mg prn as well Plan DVT prophylaxis - heparin SQ 5000 BID Daughter updated extensively at bedside today care d/w Dr Edwards today appreciate his assistance ongoing complex care coordination Admission and Anticipated Discharge Date Admission Date: October 12, 2022 Subjective tele overnight wnl NSR with ectopy patient reports ongoing bowel movements -- she started her golytely prep on WEDNESDAY this am she was eating yogurt for breakfast she developed abdominal discomfort and "gas" under the left costal margin she was belching, then felt like she had to have a BM she had fecal incontinence in the bed, then had a large BM on the toilet at lunch time she ate about 75% of her meal no vomiting just occasional nausea she overall feels better dyspnea improved cough improved less shakes/tremors today as well Review of Systems Review of Systems: gen - no fevers/chills cv - no chest pains, no orthopnea psych - slept a little better overnight; less anxious today GI - see HPI; no blood per rectum Physical Exam Physical Exam: gen - looks much better today, NAD, comfortable mouth - MMM neck - JVD improved heart - RRR, s1 s2, 2-3/6 systolic murmur RUSB lungs - wheezes improved; no rales; no increased work of breathing abd - soft, NT, ND, BS+, no peritoneal signs ext - trace edema, pulses 2+ b/l neuro - tremors resolved psych - anxiety improved, more calm Results & Data Results & Data Vital Signs (Past 12 Hours) Vital Signs Temp Pulse Pulse Resp BP Pulse Ox O2 Del Method 10/18/22 16:18 36.6 C 71 18 172/52 H 93 Nasal Cannula 10/18/22 15:39 67 10/18/22 15:38 81 18 94 Nasal Cannula 10/18/22 11:32 36.7 C 64 19 167/66 H 92 Nasal Cannula 10/18/22 11:21 60 18 95 Nasal Cannula 10/18/22 08:00 Nasal Cannula 10/18/22 08:13 36.7 C 60 20 186/63 H 95 Nasal Cannula 10/18/22 07:55 63 10/18/22 07:14 67 18 98 Nasal Cannula O2 Flow Rate 10/18/22 16:18 4 10/18/22 15:39 10/18/22 15:38 2 10/18/22 11:32 4 10/18/22 11:21 2 10/18/22 08:00 2 10/18/22 08:13 2 10/18/22 07:55 10/18/22 07:14 3 Laboratory Results Laboratory Results - last 24 hr 10/18/22 10/18/22 05:34 05:34 WBC 7.42 RBC 2.58 L Hgb 7.7 L Hct 23.8 L MCV 92.2 MCH 29.8 MCHC 32.4 RDW Std Deviation 56.6 H RDW Coeff of Kris 17.2 H Plt Count 201 MPV 10.3 Absolute Nucleated RBC 0.10 Nucleated RBC % (auto) 1.3 Sodium 134 L Potassium 3.6 Chloride 99 Carbon Dioxide 26 Anion Gap 9 BUN 45 H Creatinine 3.53 H D Est Cr Clr Drug Dosing 14.2 Est GFR ( Amer) 13.7 Est GFR (Non-Af Amer) 11.8 BUN/Creatinine Ratio 12.7 Glucose 78 Calcium 8.3 L PG Care Time/CCT Total # of Minutes Spent Total Time Spent with Patient: Total time spent is greater than 50% in coordination of care (as documented) at patient's floor/unit and/or counseling patient: Coding Level of Care Code 80350 SUB INP/OBS CARE 3/50MIN Diagnoses Left sided abdominal pain R10.9 Celiac artery stenosis I77.1 Acute encephalopathy G93.40 Acute blood loss anemia D62 Pneumonia J18.9 COPD exacerbation J44.1 Chronic kidney disease, stage V N18.5 Anemia D64.9 Anemia type: unspecified type Hypertension I10 Hypertension type: unspecified Constipation K59.00 Hyperkalemia E87.5 Hyponatremia E87.1 GERD (gastroesophageal reflux disease) K21.9 Hypothyroidism E03.9 Hyperlipidemia E78.5 Aortic stenosis I35.0 AVM (arteriovenous malformation) of small bowel, acquired with hemorrhage K55.21 Tobacco dependence F17.200 Anxiety F41.9 Insomnia G47.00 (8) Anemia Anemia type: unspecified type Qualified Code(s): D64.9 - Anemia, unspecified (9) Hypertension Hypertension type: unspecified Qualified Code(s): I10 - Essential (primary) hypertension
[2022-10-18] MEDS ORDERED: EPOETIN ALFA 10,000 UNITS/ML VIAL SQ ONE (17:32)
[2022-10-18] MEDS: ATORVASTATIN 40 MG TAB PO SCH (19:49)
[2022-10-18] MEDS ORDERED: DOXYCYCLINE HYCLATE 100 MG CAP PO ONE (20:00)
[2022-10-18] MEDS: ISOSORBIDE MONO EXTENDED REL 30 MG TABCR PO SCH (20:03)
[2022-10-18] MEDS ORDERED: Nursing to Pharmacy Communication SCH (20:45)
[2022-10-18] MEDS: MELATONIN 3 MG TAB PO SCH (21:46)
[2022-10-18] MEDS: traZODone HCL 100 MG TAB PO SCH (21:47)
[2022-10-19] MEDS: LEVOTHYROXINE SODIUM 25 MCG TABLET PO SCH (05:50)
[2022-10-19 06:56] LABS: Hematocrit (blood only) 24.4 % (37.0-47.0); Hemoglobin 8.1 g/dl (12.0-16.0); Mean Corpuscular Hgb Conc 33.2 g/dL (32.0-36.0); Mean Corpuscular Volume 93.5 fL (80.0-100.0); Mean Platelet Volume 10.1 fL (9.4-12.4); Nucleated RBC # (auto) 0.05 K/uL (0-0.12); Nucleated RBC % (auto) 0.6 %; Platelet Count 217 K/uL (130-400); RDW Coefficient of Variation 17.3 % (11.5-14.5); RDW Standard Deviation 56.6 fL (36.4-46.3); Red Blood Count 2.61 M/uL (4.20-5.40); White Blood Count 8.77 K/ul (4.8-10.8)
[2022-10-19] MEDS: ALBUTEROL HFA 8 GM INHALER INH SCH ×4 (06:59→18:55)
[2022-10-19] MEDS: IPRATROPIUM BROMIDE HFA INHALER INH SCH ×4 (06:59→18:56)
[2022-10-19 07:17] LABS: BUN Creatinine Ratio 12.7 (10-20); Calcium 8.5 mg/dl (8.6-10.3); Creatinine Clr Calc Pharmacy 11.8 ml/min; Est GFR (African American) 10.9 ml/min; Est GFR (Non-African American) 9.4 ml/min; Potassium 3.8 mmol/L (3.5-5.1)
[2022-10-19] MEDS: PANTOprazole 40 MG TAB PO SCH ×2 (08:04→19:37)
[2022-10-19] MEDS: hydrALAZINE TAB 50 MG TAB PO SCH ×2 (08:04→19:35)
[2022-10-19] MEDS: HEPARIN SOD 5,000 UNIT/0.5 ML VIAL SQ SCH ×2 (08:04→19:36)
[2022-10-19] MEDS: ISOSORBIDE MONO EXTENDED REL 30 MG TABCR PO SCH (08:04)
[2022-10-19] MEDS: SENNA 8.6 MG TAB PO SCH (08:05)
[2022-10-19] MEDS: predniSONE 20 MG TAB PO SCH (08:05)
[2022-10-19] MEDS: POLYETHYLENE (MIRALAX) 17 GM PACK PO SCH (08:05)
[2022-10-19] MEDS: amLODIPine BESYLATE 5 MG TAB PO SCH (08:05)
[2022-10-19] MEDS: FAMOTIDINE 20 MG TAB PO SCH (08:05)
[2022-10-19] MEDS: ASPIRIN 81 MG ECTAB PO SCH (08:05)
[2022-10-19] MEDS: NICOTINE 21 MG/24 HR TDSY TD SCH (08:06)
[2022-10-19] MEDS: carvediloL 6.25 MG TAB PO SCH ×2 (08:06→17:27)
--- NOTE | 2022-10-19 10:19 | Gastroenterology Progress Note ---
Date of Service October 19, 2022 Assessment & Plan (1) Left sided abdominal pain: Plan: She has improved and I am agreeable for her to be discharged. She will follow up with Kathi Bland in the GI office and I also feel she should still follow up with Dr. Love Admission and Anticipated Discharge Date Admission Date: October 12, 2022 Subjective Feeling a lot better today. In much better spirits. No longer complain of left sided pain. Ready to go home but going to have dialysis tomorrow before discharge. Physical Exam Physical Exam: She looks much better today Results & Data Vital Signs (Past 12 Hours) Vital Signs Temp Pulse Pulse Resp BP Pulse Ox O2 Del Method 10/19/22 08:00 61 10/19/22 07:10 37 C 66 20 168/66 H 94 Room Air 10/19/22 06:59 61 18 95 Nasal Cannula 10/19/22 00:00 65 10/19/22 03:00 37.0 C 65 19 158/58 H 95 Nasal Cannula 10/18/22 23:00 36.9 C 64 21 155/65 H 95 Room Air O2 Flow Rate 10/19/22 08:00 10/19/22 07:10 10/19/22 06:59 2 10/19/22 00:00 10/19/22 03:00 2 10/18/22 23:00 2
--- NOTE | 2022-10-19 11:32 | Nephrology Progress Note ---
Date of Service October 19, 2022 Assessment & Plan (1) LESLIE (acute kidney injury): Plan: * LESLIE/CKD vs progressive CKD in the setting of mild CHF, pneumonia * 1st run HD completed 10/14/22. 3rd treatment performed 10/16 without complications. * Now ESRD. * Next HD will be tomorrow. * Monitor NE daily, UO per shift. (2) Chronic kidney disease, stage V: Plan: * 08/13 Baseline Cr 3.98 w/ EGFR 11 cc/min. Renal impairment is on the basis of renal vascular disease. 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 Bridget [place] [facility] [place] * L forearm AVF created 03/[address] Love. * AVF functioning well. Needle infiltrated during second treatment with some bruising but no notable hematoma. AVF functioned well on subsequent treatment. Additional 1 day of rest today. Good thrill and bruit. * Outpatient HD to be arranged at [facility] under the care of Dr. Berman. (3) Abdominal pain: Plan: * 10/13/22 Abdominal MRA (no contrast) - no evidence of SMA stenosis/occlusion. 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 * 10/14/22 Abdominal CTA w/ contrast - small bilateral pleural effusions, ascites. 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 Diffuse aortic atherosclerosis. * Vascular surgery consultation suggested no intervention at this time. * GI consult suggests symptoms related to underlying vascular disease. No additional evaluation planned. (4) Anemia: Plan: * h/o multiple duodenal & jejunal AVM with recurrent UGI bleed. * 10/12 FOBT was negative. * Iron saturation 27%, ferritin 152. * Venofer 300 mg IV given 10/13/22. * Epogen 10,000 units SQ given 10/13/22. * Additional Epogen 10,000 units SQ ordered for today but can reasonably be held to be given with HD tomorrow. (5) Pneumonia: Plan: * On Doxycycline, Ceftriaxone completed. * Remains on steroids for COPD exacerbation/pneumonia. (6) Cystitis: Plan: * 10/13 urine culture + for E. Coli. Completed Ceftriaxone therapy (7) Hypertension: Plan: * Continue amlodipine, carvedilol, hydralazine. * Carvedilol increased for hypertension. (8) Cardiac murmur: Plan: * 10/13/22 Echocardiogram: LVEF 60-65%, severe aortic stenosis Admission and Anticipated Discharge Date Admission Date: October 12, 2022 Subjective No acute events overnight. Toña reports significant improvement this AM. Denies notable bowel pain. Good bowel movement this AM. Strength has improved. Hopeful to be discharged home tomorrow. Review of Systems Review of Systems: All systems reviewed & are unremarkable except as noted in HPI & below Physical Exam Constitutional: well developed; no acute distress Eyes: + anicteric sclerae; no scleral abnormality ENMT: external ear and nose normal, oropharynx normal Neck: trachea midline, no thyromegaly Respiratory: normal respiratory effort; not tachypneic Auscultation: lungs clear to auscultation bilaterally Cardiovascular: Rate/Rhythm: regular rate and regular rhythm Heart Sounds: + murmur (harsh systolic murmur w/ radiation to carotids) Extremities: + edema (trace LE swelling) and + AV fistula Musculoskeletal: Extremities: no cyanosis and no clubbing Skin: normal turgor; no rashes and no jaundice Neurologic: awake; not confused Psychiatric: Orientation: alert and oriented x 3 Results & Data Vital Signs (Past 12 Hours) Vital Signs Temp Pulse Pulse Resp BP Pulse Ox O2 Del Method 10/19/22 11:18 66 20 94 Nasal Cannula 10/19/22 10:46 37 C 62 19 169/63 H 97 Nasal Cannula 10/19/22 08:00 61 10/19/22 07:10 37 C 66 20 168/66 H 94 Room Air 10/19/22 06:59 61 18 95 Nasal Cannula 10/19/22 00:00 65 10/19/22 03:00 37.0 C 65 19 158/58 H 95 Nasal Cannula O2 Flow Rate 10/19/22 11:18 2 10/19/22 10:46 2 10/19/22 08:00 10/19/22 07:10 10/19/22 06:59 2 10/19/22 00:00 10/19/22 03:00 2 Laboratory Results Laboratory Results - last 24 hr 10/19/22 10/19/22 06:06 06:06 WBC 8.77 RBC 2.61 L Hgb 8.1 L Hct 24.4 L MCV 93.5 MCH 31.0 MCHC 33.2 RDW Std Deviation 56.6 H RDW Coeff of Kris 17.3 H Plt Count 217 MPV 10.1 Absolute Nucleated RBC 0.05 Nucleated RBC % (auto) 0.6 Sodium 133 L Potassium 3.8 Chloride 98 Carbon Dioxide 24 Anion Gap 11 BUN 54 H Creatinine 4.26 H D Est Cr Clr Drug Dosing 11.8 Est GFR ( Amer) 10.9 Est GFR (Non-Af Amer) 9.4 BUN/Creatinine Ratio 12.7 Glucose 80 Calcium 8.5 L PG Care Time/CCT Total # of Minutes Spent Total Time Spent with Patient: Total time spent is greater than 50% in coordination of care (as documented) at patient's floor/unit and/or counseling patient: Coding Level of Care Code 87012 SUB INP/OBS CARE 3/50MIN Diagnoses LESLIE (acute kidney injury) N17.9 Chronic kidney disease, stage V N18.5 Abdominal pain R10.9 Anemia D64.9 Anemia type: unspecified type Pneumonia J18.9 Cystitis N30.90 Hypertension I10 Hypertension type: unspecified Cardiac murmur R01.1 (4) Anemia Anemia type: unspecified type Qualified Code(s): D64.9 - Anemia, unspecified (7) Hypertension Hypertension type: unspecified Qualified Code(s): I10 - Essential (primary) hypertension
--- NOTE | 2022-10-19 14:17 | Hospitalist Progress Note ---
Date of Service October 19, 2022 Assessment & Plan (1) Left sided abdominal pain: Plan: resolved. Patient has had EXTENSIVE work-up for her abdominal complaints over the last 6- 12 months. Follows closely with Kathi ENGEL at [facility]. Numerous CTs a/p, capsule endo, colonoscopy, small bowel follow-through studies, etc have been undertaken. Constipation has been noted on most studies, but this should not cause weight loss of 20-25 pounds nor the severity of her post-prandial complaints. [id number], left-sided pain resolved with golytely prep and 48+ hours of copious stool output. Now tolerating regular diet without pain. No vomiting. Of note - 2020 MRA abdomen showed the following - "Focal stenosis of approximately 80% at the origin of the celiac artery. There is also focal stenosis of approximately 70% at the origin of the superior mesenteric artery. There are focal areas of high-grade stenosis within the bilateral proximal renal arteries measuring approximately 80% on the left and 90% on the right. The mid to distal superior mesenteric artery appears patent. The common hepatic artery is likely patent." CTA a/p this admission with 70% stenosis of celiac artery, occluded SHARI, and mildly stenosed SMA. Patient was seen by Dr Love from [facility]. At this time no plans for arteriogram or intervention on the celiac artery. See below in #2. Cont PPI BID Cont once daily H2 mona zofran prn Appreciate Dr Edwards's consultation from [facility]. I corresponded with Dr Edwards re: ongoing Rx of constipation. She had been prescribed 145mcg of Linzess by Ms Bland about 3-[address] Edwards recommends increasing Linzess to 290mcg once daily at discharge. Uncertain with ESRD and HD status if the dose needs adjustment or special timing. Will check with pharmacy. Patient needs f/u with Kathi Bland post-d/c for this issue. Also needs f/u with Dr Love for the celiac artery stenosis. (2) Constipation: Plan: SEVERE s/p golytely prep 10/16 and 10/17 STILL was having BMs 48 hours later ! speaks to the severity of her constipation finally resolved was just started on Linzess as an outpatient by Kathi Bland about 3-4 weeks ago - 145mcg daily Dr Edwards advising increase in such to 290mcg once daily check with pharmacy about dosing and if any changes needed in light of ESRD status and HD status (3) Celiac artery stenosis: Plan: At minimum the celiac artery is 70-80% stenosed based on past and current imaging (CTA a/p performed this admission with 70% stenosis). She has lost at least 12kg of weight since October 2021 (25+ pounds). She had stopped eating solids for fear of eating -- she consistently had been getting post-prandial pain with eating for several months. Dr Love saw in consult 10/16. Feels that abdominal pain is unlikely to be from celiac artery stenosis - cannot rule it out 100%, but other factors are more likely (severe constipation, gaseous distension, etc). He plans to follow her here and after discharge. GI symptoms & pain SIGNIFICANTLY improved/resolved following resolution of severe constipation. Cont asa 81mg daily. Patient was not taking aspirin at home. Given the severity of her mesenterics would send home with 81mg daily. Cont lipitor 40mg daily. (4) Acute encephalopathy: Plan: likely metabolic and toxic -- fully resolved metabolic - pneumonia, hospital psychosis, pain, etc toxic - tramadol (discontinued), steroids, etc stopped tramadol cont melatonin 3mg HS to help with sleep-wake circadian rhythm wean steroids as tolerated treated pneumonia cont trazodone HS (5) Acute blood loss anemia: Plan: during her 2nd HD session this admission the needle came out during the HD a large amount of blood was in the dialyzer when this happened leading to 1.5gm drop H/H relatively stable since recheck CBC in am Dr Brandt managing Epogen she has had NO GI bleeding this admission (6) Pneumonia: Plan: b/l basilar s/p 7 days each of ceftriaxone + doxycycline clinically resolved Continue supplemental oxygen but try to wean off Continue combivent inhaler qid Tessalon Perles as needed for cough if still on O2 tomorrow then 2-step prior to discharge (7) COPD exacerbation: Plan: Improving / resolving Cont to wean PO prednisone - wean to 30mg tomorrow x 2 days, then 20mg x 2 days, then 10mg x 2 days, then stop Cont combivent QID 2-step prior to discharge needed (8) Chronic kidney disease, stage V: Plan: baseline CrCl <15 baseline creatinine has been 4 to 4.5 up until a few weeks ago and now is >5 she developed acidemia and hyperkalemia early in the stay leading to initiation of HD last week s/p 3 HD sessions last week (2 brief, 1 full) via LUE AV fistula appreciate nephrology assistance Dr Brandt reports she will have HD on Wednesday am she will dialyze in [place] post-discharge social work and nephrology will need to coordinate this (9) Anemia: Plan: 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 and also component of acute blood loss anemia (lost blood during an HD session last week) B12, folate, Fe studies adequate TSH wnl Heme neg stool in light of concern for possible mesenteric ischemia Tx 1 unit PRBCs 10/13/22 follows with Maria D BARTON in the [facility] office for chronic procrit & anemia management Dr Brandt managing epogen this admission (10) Hypertension: Plan: Continue amlodipine 10 mg daily Continue coreg 6.25mg BID (dose increased this admission) Continue hydralazine 100mg BID Added imdur 30mg daily yesterday BPs labile - pain, anxiety, etc - will drive some of the high readings BPs should also improve as volume status improves with dialysis (11) Hyperkalemia: Plan: resolved s/p HD (12) Hyponatremia: Plan: 2nd to CKD stage 5/development of ESRD BMP am (13) GERD (gastroesophageal reflux disease): Plan: improved cont PPI bid + pepcid once daily (14) Hypothyroidism: Plan: Continue levothyroxine 25 MCG g daily TSH is normal (15) Hyperlipidemia: Plan: Continue atorvastatin 40 mg daily (16) Aortic stenosis: Plan: severe with valve area <1cm^2 s2 clearly heard no signs it is causing hemodynamic issues or symptoms [id number] this will need to be addressed in the future patient made aware of her diagnosis this will need to be followed by cardiology would make referral to [facility] (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, acquired with hemorrhage: Plan: known intestinal AVMs as seen on capsule endoscopy earlier this year she has NOT had any blood per rectum this admission (18) Tobacco dependence: Plan: nicoderm patch 21mg/day (19) Anxiety: Plan: appreciate psych input cont trazodone at HS 100mg scheduled anxiety improved with stopping duonebs + IV solumedrol as well (20) Insomnia: Plan: cont melatonin cont trazodone 100mg HS Plan DVT prophylaxis - heparin SQ 5000 BID Daughter updated extensively by phone appreciate GI, nephrology, and vascular surgery assistance ongoing complex care coordination home tomorrow after dialysis session and once outpatient HD arrangements have been made?? would advise home PT/OT - she lives in an apartment complex in [place] Admission and Anticipated Discharge Date Admission Date: October 12, 2022 Subjective tele stable overnight patient was sitting in chair by window during the visit is tolerating regular foods for 24+ hours only 1 small stool this am abdominal pain nearly 100% resolved just 1 brief episode of "gas" that resolved when she burped and passed flatus no vomiting dyspnea/wheezing/cough - all improved "I want to go home - can I go home tomorrow?" Review of Systems Review of Systems: gen - feels much better, more energy today, eating well cv - no chest pain pulm - resolution of dyspnea GI - no vomiting ; no BRBPR Physical Exam Physical Exam: gen - looks great today, NAD, comfortable mouth - MMM neck - JVD resolved heart - RRR, s1 s2, 2-3/6 systolic murmur RUSB lungs - minimal wheeze today; no rales; no increased work of breathing; she sounds MUCH better today abd - very soft, NT, ND, BS+, no peritoneal signs ext - no edema, pulses 2+ b/l psych - anxiety improved, calm, a/o x 3 vascular - left arm fistula with bruit skin - ecchymoses over left arm Results & Data Results & Data Vital Signs (Past 12 Hours) Vital Signs Temp Pulse Pulse Resp BP Pulse Ox O2 Del Method 10/19/22 11:18 66 20 94 Nasal Cannula 10/19/22 10:46 37 C 62 19 169/63 H 97 Nasal Cannula 10/19/22 08:00 61 10/19/22 07:10 37 C 66 20 168/66 H 94 Room Air 10/19/22 06:59 61 18 95 Nasal Cannula 10/19/22 03:00 37.0 C 65 19 158/58 H 95 Nasal Cannula O2 Flow Rate 10/19/22 11:18 2 10/19/22 10:46 2 10/19/22 08:00 10/19/22 07:10 10/19/22 06:59 2 10/19/22 03:00 2 Laboratory Results Laboratory Results - last 24 hr 10/19/22 10/19/22 06:06 06:06 WBC 8.77 RBC 2.61 L Hgb 8.1 L Hct 24.4 L MCV 93.5 MCH 31.0 MCHC 33.2 RDW Std Deviation 56.6 H RDW Coeff of Kris 17.3 H Plt Count 217 MPV 10.1 Absolute Nucleated RBC 0.05 Nucleated RBC % (auto) 0.6 Sodium 133 L Potassium 3.8 Chloride 98 Carbon Dioxide 24 Anion Gap 11 BUN 54 H Creatinine 4.26 H D Est Cr Clr Drug Dosing 11.8 Est GFR ( Amer) 10.9 Est GFR (Non-Af Amer) 9.4 BUN/Creatinine Ratio 12.7 Glucose 80 Calcium 8.5 L PG Care Time/CCT Total # of Minutes Spent Total Time Spent with Patient: Total time spent is greater than 50% in coordination of care (as documented) at patient's floor/unit and/or counseling patient: Coding Level of Care Code 99401 SUB INP/OBS CARE 3/50MIN Diagnoses Left sided abdominal pain R10.9 Constipation K59.00 Celiac artery stenosis I77.1 Acute encephalopathy G93.40 Acute blood loss anemia D62 Pneumonia J18.9 COPD exacerbation J44.1 Chronic kidney disease, stage V N18.5 Anemia D64.9 Anemia type: unspecified type Hypertension I10 Hypertension type: unspecified Hyperkalemia E87.5 Hyponatremia E87.1 GERD (gastroesophageal reflux disease) K21.9 Hypothyroidism E03.9 Hyperlipidemia E78.5 Aortic stenosis I35.0 AVM (arteriovenous malformation) of small bowel, acquired with hemorrhage K55.21 Tobacco dependence F17.200 Anxiety F41.9 Insomnia G47.00 (9) Anemia Anemia type: unspecified type Qualified Code(s): D64.9 - Anemia, unspecified (10) Hypertension Hypertension type: unspecified Qualified Code(s): I10 - Essential (primary) hypertension
[2022-10-19] MEDS ORDERED: EPOETIN ALFA 10,000 UNITS/ML VIAL SQ ONE (15:00)
[2022-10-19] MEDS ORDERED: Nursing to Pharmacy Communication SCH ×2 (18:15)
[2022-10-19] MEDS: ATORVASTATIN 40 MG TAB PO SCH (19:36)
[2022-10-19] MEDS: MELATONIN 3 MG TAB PO SCH (21:23)
[2022-10-19] MEDS: traZODone HCL 100 MG TAB PO SCH (21:23)
[2022-10-20] MEDS: LEVOTHYROXINE SODIUM 25 MCG TABLET PO SCH (05:57)
[2022-10-20] MEDS: IPRATROPIUM BROMIDE HFA INHALER INH SCH ×3 (06:52→15:05)
[2022-10-20] MEDS: ALBUTEROL HFA 8 GM INHALER INH SCH ×3 (06:52→15:05)
[2022-10-20] MEDS: NICOTINE 21 MG/24 HR TDSY TD SCH (07:50)
[2022-10-20] MEDS: POLYETHYLENE (MIRALAX) 17 GM PACK PO SCH (07:51)
[2022-10-20 07:56] LABS: Hematocrit (blood only) 26.2 % (37.0-47.0); Mean Corpuscular Hemoglobin 31.3 pg (25.0-34.0); Mean Corpuscular Hgb Conc 34.4 g/dL (32.0-36.0); Mean Platelet Volume 9.6 fL (9.4-12.4); Nucleated RBC # (auto) 0.03 K/uL (0-0.12); Nucleated RBC % (auto) 0.3 %; Platelet Count 209 K/uL (130-400); RDW Coefficient of Variation 18.1 % (11.5-14.5); RDW Standard Deviation 55.9 fL (36.4-46.3); Red Blood Count 2.88 M/uL (4.20-5.40); White Blood Count 10.35 K/ul (4.8-10.8)
[2022-10-20 08:15] LABS: BUN Creatinine Ratio 12.8 (10-20); Calcium 8.7 mg/dl (8.6-10.3); Creatinine Clr Calc Pharmacy 10.6 ml/min; Est GFR (African American) 9.5 ml/min; Est GFR (Non-African American) 8.2 ml/min; Potassium 4.1 mmol/L (3.5-5.1)
--- NOTE | 2022-10-20 08:47 | Gastroenterology Progress Note ---
Supervising physicians note I have reviewed the note of Kathi Bland NP and discussed plans with her. Specifically there is no change from yesterday, she is doing reasonably well and was to be discharged after dialysis started. I have spent 15 minutes in discussion with Kathi Bland and reviewing the chart. Date of Service October 20, 2022 Assessment & Plan (1) Left sided abdominal pain: Plan: Left-sided abdominal pain: Patient well-known to me from outpatient clinic with extensive GI work-up. Inpatient findings of mesenteric vascular issues. She has follow-up outpatient appointment with [facility], Dr. Love. Has also had persistent constipation. I would recommend continuation of bowel regimen at discharge which was reviewed with her today. Okay to discharge from GI standpoint, my office will contact patient to schedule follow-up in the GI clin ic. Case reviewed with Dr. Edwards. Please refer to supervising physician addendum for further recommendations. I have spent 20 minutes of discrete time performing the activities of this visit which include but are not limited to review of the medical record, obtaining a history, physical exam, and entering information in the electronic record. Admission and Anticipated Discharge Date Admission Date: October 12, 2022 Subjective The patient is awake alert and oriented this morning. She is in dialysis. She is in good spirits and reports that she was able to eat successfully without abdominal pain last night. She does report she had a lot of increased bowel sounds and passing flatus after eating through the night. She is hopeful for discharge today. Review of Systems Review of Systems: All systems reviewed & are unremarkable except as noted in Subjective Physical Exam Gastrointestinal (Abdomen): normal bowel sounds, soft, nontender, no hepatosplenomegaly Results & Data Vital Signs (Past 12 Hours) Vital Signs Temp Pulse Pulse Pulse Resp BP BP 10/20/22 08:30 69 175/60 H 10/20/22 08:22 63 164/67 H 10/20/22 08:10 36.6 C 67 10/20/22 07:31 36.9 C 77 20 169/68 H 10/20/22 06:52 77 18 10/20/22 03:21 37.1 C 68 20 167/62 H 10/19/22 23:26 36.9 C 58 L 18 159/56 H 10/19/22 23:15 64 Pulse Ox O2 Del Method O2 Flow Rate 10/20/22 08:30 10/20/22 08:22 10/20/22 08:10 10/20/22 07:31 91 Nasal Cannula 2 10/20/22 06:52 91 Room Air 10/20/22 03:21 92 Nasal Cannula 1 10/19/22 23:26 93 Nasal Cannula 2 10/19/22 23:15 Laboratory Results Laboratory Results - last 24 hr 10/20/22 10/20/22 07:30 07:30 WBC 10.35 RBC 2.88 L Hgb 9.0 L Hct 26.2 L MCV 91.0 MCH 31.3 MCHC 34.4 RDW Std Deviation 55.9 H RDW Coeff of Kris 18.1 H Plt Count 209 MPV 9.6 Absolute Nucleated RBC 0.03 Nucleated RBC % (auto) 0.3 Sodium 132 L Potassium 4.1 Chloride 98 Carbon Dioxide 23 Anion Gap 11 BUN 61 H Creatinine 4.78 H* D Est Cr Clr Drug Dosing 10.6 Est GFR ( Amer) 9.5 Est GFR (Non-Af Amer) 8.2 BUN/Creatinine Ratio 12.8 Glucose 80 Calcium 8.7
[2022-10-20] MEDS ORDERED: predniSONE 10 MG TABLET PO SCH (09:00)
[2022-10-20] MEDS: HEPARIN SOD 5,000 UNIT/0.5 ML VIAL SQ SCH (11:49)
[2022-10-20] MEDS: SENNA 8.6 MG TAB PO SCH (11:49)
[2022-10-20] MEDS: amLODIPine BESYLATE 5 MG TAB PO SCH (11:49)
[2022-10-20] MEDS: carvediloL 6.25 MG TAB PO SCH (11:50)
[2022-10-20] MEDS: FAMOTIDINE 20 MG TAB PO SCH (11:50)
[2022-10-20] MEDS: ASPIRIN 81 MG ECTAB PO SCH (11:50)
[2022-10-20] MEDS: hydrALAZINE TAB 50 MG TAB PO SCH (11:50)
[2022-10-20] MEDS: PANTOprazole 40 MG TAB PO SCH (11:50)
[2022-10-20] MEDS: ISOSORBIDE MONO EXTENDED REL 30 MG TABCR PO SCH (11:50)
--- NOTE | 2022-10-20 13:08 | Nephrology Progress Note ---
Date of Service October 20, 2022 Assessment & Plan (1) Hyperkalemia: (2) Hyponatremia: (3) ESRD on hemodialysis: Plan 77 year old female with ESRD due to renal vascular disease with h/o advanced CKD and has been following at [facility] with Dr. Bridget Martini, Cr was 3.98 w/ EGFR 11 cc/min in arch 2022. Her renal impairment is attributed to renal vascular disease.Has h/o renal and carotid stenosis, had L forearm AVF in 03/[address] Love but has been slow to mature. PMH also significant for duodenal/jejunal AVM with recurrent UGI bleeding, COPD, HTN, hyperlipidemia and hypothyroidism.Admitted to [facility] on 10/11/22 for evaluation of L upper abdominal discomfort and dyspnea. CT abdomen pelvis was negative but she was found to have volume overload and worsening renal function creatinine 4.5 and started on hemodialysis. The. -- overall she has been doing well, tolerating dialysis, tolerating UF goal for 2 L today. Blood pressure has been running high. AV fistula functioning well with low blood flow and smaller needle size. Discussed with dialysis staff at [facility] this afternoon, she is scheduled for dialysis this coming at 9:00 a.m. to be continued on Wednesday schedule. Okay to be discharged from Nephrology standpoint with plan to have next dialysis at the outpatient dialysis unit on . -- Left arm nephrology precaution, dose medications for EGFR less than 10. Will follow Admission and Anticipated Discharge Date Admission Date: October 12, 2022 Subjective Toña was seen and evaluated during dialysis. She has been tolerating dialysis well, tolerating UF. Denies shortness of breath, chest pain, headache, dizziness or lightheadedness. Av fistula is working okay with relatively low blood flow and smaller size needle. Hemoglobin improved to above 9. Review of Systems Review of Systems: detailed review of system was otherwise unremarkable Physical Exam Constitutional: WD/WN, vitals as above no acute distress Eyes: + anicteric sclerae Neck: normal visual inspection Respiratory: Auscultation: lungs clear to auscultation bilaterally Cardiovascular: RRR, no murmur, no edema Skin: no rashes, warm and dry Neurologic: no focal motor deficits Psychiatric: Orientation: alert and oriented x 3 Results & Data Vital Signs (Past 12 Hours) Vital Signs Temp Pulse Pulse Pulse Resp BP BP 10/20/22 11:50 36.7 C 64 20 196/49 H 10/20/22 11:24 36.8 C 52 L 170/48 H 10/20/22 11:00 60 177/65 H 10/20/22 10:30 51 L 160/84 H 10/20/22 10:00 66 151/55 H 10/20/22 09:30 64 152/57 H 10/20/22 08:00 10/20/22 09:00 67 106/43 L 10/20/22 08:30 69 175/60 H 10/20/22 08:22 63 164/67 H 10/20/22 08:10 36.6 C 67 10/20/22 07:31 36.9 C 77 20 169/68 H 10/20/22 06:52 77 18 10/20/22 03:21 37.1 C 68 20 167/62 H Pulse Ox O2 Del Method O2 Flow Rate 10/20/22 11:50 93 Nasal Cannula 2 10/20/22 11:24 10/20/22 11:00 10/20/22 10:30 10/20/22 10:00 10/20/22 09:30 10/20/22 08:00 Room Air 10/20/22 09:00 10/20/22 08:30 10/20/22 08:22 10/20/22 08:10 10/20/22 07:31 91 Nasal Cannula 2 10/20/22 06:52 91 Room Air 10/20/22 03:21 92 Nasal Cannula 1 PG Care Time/CCT Total # of Minutes Spent Total Time Spent with Patient: Total time spent is greater than 50% in coordination of care (as documented) at patient's floor/unit and/or counseling patient: Coding Level of Care Code 35486 SUB INP/OBS CARE 3/50MIN Diagnoses Hyperkalemia E87.5 Hyponatremia E87.1 ESRD on hemodialysis N18.6; Z99.2
--- NOTE | 2022-10-20 15:17 | Discharge Summary ---
Date of Service October 20, 2022 Admission HPI Per Admitting Provider This is a 77-year-old female with past medical history significant history of chronic kidney disease, COPD, hypertension, hyperlipidemia, hypothyroidism on thyroid replacement, who presents to the emergency department with complaints of upper abdominal discomfort associated with shortness of breath. Patient is recently been seen in [facility] for evaluation of similar symptoms when she had x-ray of the abdomen that demonstrated constipation that was attributed to her abdominal discomfort and patient was discharged home from ED. patient however reports that she had ongoing upper abdominal discomfort and also reports worsening shortness of breath along with worsening cough symptoms and hence presents to ED for further evaluation. Patient was evaluated in the ED and was found to have oxygen sats in the 90s upon initial arrival and patient was placed on nasal cannula along with DuoNeb administration. Further work-up in the ED reveals evidence of underlying CKD with a creatinine of 4.6 and high-sensitivity troponin was 50. CT of the chest shows evidence of bilateral pleural effusion with basilar consolidation suspicious for pneumonia. Patient was also noted to have stool retention in the CT consistent with constipation symptoms. Patient was started on IV antibiotic therapy with IV Unasyn along with azithromycin for community-acquired pathogens and atypical coverage. Principal Diagnosis ESRD on hemodialysis Severe constipation Mesenteric artery stenosis Pneumonia Hypoxia COPD exacerbation Discharge Exam Constitutional WD/WN, vitals as above Neck trachea midline, no thyromegaly Respiratory normal respiratory effort Auscultation: no crackles and no rhonchi Cardiovascular Rate/Rhythm: regular rate and regular rhythm Heart Sounds: + murmur (3/6 systolic murmur heard best at the apex) Extremities: no edema Chest (Breasts) Chest: normal inspection of chest Gastrointestinal (Abdomen) normal bowel sounds, soft, nontender, no hepatosplenomegaly Musculoskeletal Extremities: extremities normal to inspection; no cyanosis and no clubbing Skin no rashes, warm and dry Neurologic moves all extremities and awake; no focal motor deficits Psychiatric A+Ox3, euthymic affect Lymphatic no lymphedema Discharge Data Allergies Allergy/AdvReac Type Severity Reaction Status Date / Time sulfamethoxazole Allergy Severe ELEVATED Verified 09/25/22 06:18 POTASSIUM, BRADYCARDIC "HEART TRIED TO SHUT DOWN" trimethoprim Allergy Severe ELEVATED Verified 09/25/22 06:18 POTASSIUM, BRADYCARDIC "HEART TRIED TO SHUT DOWN" codeine Allergy Intermediate RASH, Verified 09/25/22 06:18 RAPID HEART BEAT gabapentin Allergy Intermediate HALLUCINATIONS; Verified 09/25/22 06:18 SCREAMING/YELLING hydromorphone [From Dilaudid] AdvReac Intermediate Hallucinati Verified 09/25/22 06:18 ng morphine AdvReac Unknown unsure Verified 09/25/22 06:18 "might be okay to take" oxycodone [From Percocet] AdvReac Unknown unsure Verified 09/25/22 06:18 "might be okay to take" Consultations 10/12/22 03:24 ED Decision to Admit Stat 10/12/22 08:00 Consult Nephrology Routine 10/14/22 08:09 Consult Vascular Surgery Routine 10/17/22 15:04 Consult Psychiatry Routine 10/17/22 18:28 Consult Gastroenterology Routine Ordered Studies 10/11/22 23:42 CT abd pelvis wo con Stat CT chest diagnostic wo con Stat 10/13/22 16:25 MR angio abdomen wo con Routine 10/14/22 15:50 CTA abd pelvis wo/w con [CT angio abd pelvis wo/w con] Urgent ECHO Hospital Course (1) Left sided abdominal pain: resolved. Patient has had EXTENSIVE work-up for her abdominal complaints over the last 6- 12 months. Follows closely with Kathi ENGEL at [facility]. Numerous CTs a/p, capsule endo, colonoscopy, small bowel follow-through studies, etc have been undertaken. Constipation has been noted on most studies, but this should not cause weight loss of 20-25 pounds nor the severity of her post-prandial complaints. Dejdb-[id number]-jfvd, left-sided pain resolved with golytely prep and 48+ hours of copious stool output. Now tolerating regular diet without pain. No vomiting. Of note - 2020 MRA abdomen showed the following - "Focal stenosis of approximately 80% at the origin of the celiac artery. There is also focal stenosis of approximately 70% at the origin of the superior mesenteric artery. There are focal areas of high-grade stenosis within the bilateral proximal renal arteries measuring approximately 80% on the left and 90% on the right. The mid to distal superior mesenteric artery appears patent. The common hepatic artery is likely patent." CTA a/p this admission with 70% stenosis of celiac artery, occluded SHARI, and mildly stenosed SMA. Patient was seen by Dr Love from [facility] Vascular Surgery. At this time no plans for arteriogram or intervention on the celiac artery. See below in #2. Cont PPI BID Cont once daily H2 mona zofran prn Appreciate Dr Edwards's consultation from [facility]. I corresponded with Dr Edwards re: ongoing Rx of constipation. She had been prescribed 145mcg of Linzess by Ms Bland about 3-[address] Edwards recommends increasing Linzess to 290mcg once daily at discharge. Uncertain with ESRD and HD status if the dose needs adjustment or special timing. Will check with pharmacy. Patient needs f/u with Kathi Bland post-d/c for this issue. Also needs f/u with Dr Love for the celiac artery stenosis. (2) Constipation: SEVERE s/p golytely prep 10/16 and 10/17 STILL was having BMs 48 hours later ! speaks to the severity of her constipation finally resolved was just started on Linzess as an outpatient by Kathi Bland about 3-4 weeks ago - 145mcg daily Dr Edwards advising increase in such to 290mcg once daily -no adjustment for HD (3) Celiac artery stenosis: At minimum the celiac artery is 70-80% stenosed based on past and current imaging (CTA a/p performed this admission with 70% stenosis). She has lost at least 12kg of weight since October 2021 (25+ pounds). She had stopped eating solids for fear of eating -- she consistently had been getting post-prandial pain with eating for several months. Dr Love saw in consult 10/16. Feels that abdominal pain is unlikely to be from celiac artery stenosis - cannot rule it out 100%, but other factors are more likely (severe constipation, gaseous distension, etc). He plans to follow her here and after discharge. GI symptoms & pain SIGNIFICANTLY improved/resolved following resolution of severe constipation. Cont asa 81mg daily. Patient was not taking aspirin at home. Given the severity of her mesenterics would send home with 81mg daily. Cont lipitor 40mg daily. (4) Acute encephalopathy: likely metabolic and toxic -- fully resolved metabolic - pneumonia, hospital psychosis, pain, etc toxic - tramadol (discontinued), steroids, etc stopped tramadol cont melatonin 3mg HS to help with sleep-wake circadian rhythm wean steroids as tolerated treated pneumonia cont trazodone HS (5) Acute blood loss anemia: during her 2nd HD session this admission the needle came out during the HD a large amount of blood was in the dialyzer when this happened leading to 1.5gm drop H/H relatively stable since recheck CBC in am Dr Brandt managing Epogen she has had NO GI bleeding this admission (6) Pneumonia: b/l basilar s/p 7 days each of ceftriaxone + doxycycline clinically resolved weaned off supplemental oxygen and passed 2 step prior to discharge Continue albuterol inhaler qid (7) COPD exacerbation: Improving / resolving Cont to wean PO prednisone - wean to 20mg tomorrow x 2 days, then 10mg x 2 days, then stop Cont albuteorl QID passed 2 step (8) Chronic kidney disease, stage V: baseline CrCl <15 baseline creatinine has been 4 to 4.5 up until a few weeks ago and now is >5 she developed acidemia and hyperkalemia early in the stay leading to initiation of HD last week s/p 3 HD sessions last week (2 brief, 1 full) via LUE AV fistula and one more session on day of discharge appreciate nephrology assistance she will dialyze in [place] post-discharge -all arrangements confirmed with CM (9) Anemia: 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 and also component of acute blood loss anemia (lost blood during an HD session last week) B12, folate, Fe studies adequate TSH wnl Heme neg stool in light of concern for possible mesenteric ischemia Tx 1 unit PRBCs 10/13/22 follows with Maria D BARTON in the [facility] office for chronic procrit & anemia management Dr Brandt managing epogen this admission (10) Hypertension: Continue amlodipine 10 mg daily Continue coreg 6.25mg BID (dose increased this admission) Continue hydralazine 100mg BID Added imdur 30mg daily BPs labile - pain, anxiety, etc - will drive some of the high readings BPs should also improve as volume status improves with dialysis (11) Hyperkalemia: resolved s/p HD (12) Hyponatremia: 2nd to CKD stage 5/development of ESRD improved (13) GERD (gastroesophageal reflux disease): improved cont PPI bid + pepcid once daily (14) Hypothyroidism: Continue levothyroxine 25 MCG g daily TSH is normal (15) Hyperlipidemia: Continue atorvastatin 40 mg daily (16) Aortic stenosis: severe with valve area <1cm^2 s2 clearly heard no signs it is causing hemodynamic issues or symptoms [id number] this will need to be addressed in the future patient made aware of her diagnosis this will need to be followed by cardiology would make referral to [facility] Cardiology (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, acquired with hemorrhage: known intestinal AVMs as seen on capsule endoscopy earlier this year she has NOT had any blood per rectum this admission (18) Tobacco dependence: nicoderm patch 21mg/day (19) Anxiety: appreciate psych input cont trazodone at HS 100mg scheduled anxiety improved with stopping duonebs + IV solumedrol as well (20) Insomnia: cont melatonin cont trazodone 100mg HS Plan DVT prophylaxis - heparin SQ 5000 BID Home Health Attestation I certify that this patient is under my care and that I, or a physicians trading assistant working with me, had a face to-face encounter that meets the home health [id number] encounter requirements with this patient. The encounter with the patient was in whole, or in part, for the following medical condition, which is the primary reason for home health care (list medical condition): SOB I certify that, based on my findings, the following services are medically necessary home health services: My clinical findings support the need for the above services because: OT Assess ADL Status and Restore Function w ADLs PT Assessment for Endurance / Balance / Strength PT Eval for Safety and Mobility PT Eval for Safety, Gait Training, Assistive Devices PT Gait and Balance Training, Strengthening and Safety Skilled Nsg Assessment Teach on Disease Management and Interventions Further, I certify that my clinical findings support that this patient is homebound (i.e. absences from home require considerable and taxing effort and are for medical reasons or confucianist services or infrequently or of short duration when for other reasons) because: Supportive Aid - Walker Certification for Home Health Services: Based on the above findings, I certify that this patient is confined to the home and needs intermittent fdc care, physical therapy and/or speech therapy or continues to need occupational therapy. The patient is under my care, and I have initiated the establishment of the plan of care. This patient will be followed by a physician who will periodically review the plan of care. Total Time Total Time Spent Total Time Spent (In Minutes): 45 min Discharge Plan Discharge Items Patient Disposition: Home - Home Health Services Reason For Visit: SOB Discharge Diagnosis: ESRD on hemodialysis, Hypoxia, Pneumonia, Severe constipation Mesenteric artery stenosis Condition on Discharge: Good Activity: Resume your previous activity Non-emergency contact: Primary Care Provider, Composition Stone Applicator, Child Welfare Social Worker a roney Foreign Diplomat Call non-emergency contact if: you have any medication questions, your symptoms worsen, your pain is not controlled and your pain is worsening Follow-up/Referrals: Kathi Bland CRNP [Nurse Practitioner] - (Office will reach out to schedule. ) Darcy Mancilla CRNP [Primary Care Provider] - (Follow up within 1-2 weeks.) Mark Love MD [Physician] - Diet: Dialysis Renal Fluids: 1200ml (5 cups) Addtl Attending Provider Instructions: You were treated for pneumonia and a COPD exacerbation here. You will need to finish out a few more days of prednisone. You were also started on dialysis while you were here which you are tolerating well. Some of your blood pressure medications were adjusted and a new one called isosorbide was added on. You will continue with dialysis on Tuesdays, , and Saturdays. You will need to continue on Linzess every day to prevent the severe constipation you had. You were also started on a baby aspirin each day to prevent further clogging up of the arteries in your gut that are narrowed. Follow up with GI for this. You will also need to follow up with the Vascular Surgeon for this. You were also found to have a severe narrowing of your aortic valve of the heart and will need to follow up with the Composition Stone Applicator for this. Pending Studies at Discharge: No Stand-Alone Forms: My [facility] Bring Light, Smoking Cessation Medications and DC Order Prescriptions: New carvedilol 6.25 mg Tablet 6.25 mg PO BIDM Qty: 60 0RF polyethylene glycol 3350 [Miralax] 17 gram Powder In Packet 17 g PO DAILY Qty: 30 0RF isosorbide mononitrate 30 mg Tablet Extended Release 24 Hr 30 mg PO QAM Qty: 30 0RF aspirin 81 mg Tablet,Delayed Release (Dr/Ec) 81 mg PO QAM Qty: 30 0RF famotidine 20 mg Tablet 20 mg PO DAILY Qty: 30 0RF trazodone 100 mg Tablet 100 mg PO HS Qty: 30 0RF sennosides [Senokot] 8.6 mg Tablet 17.2 mg PO QAM Qty: 60 0RF prednisone 10 mg Tablet 20 mg PO QAM Qty: 6 0RF Rx Instructions: x 2 days then take 10 mg daily x 2 days then STOP melatonin 3 mg Tablet 3 mg PO HS Qty: 30 0RF Linzess 290 mcg capsule 290 mcg PO QAM Qty: 30 0RF Continued levothyroxine 25 mcg tablet 25 mcg PO QAM Qty: 90 3RF lidocaine 4 % adhesive patch,medicated 1 patch topical DAILY PRN (Reason: Pain) atorvastatin 40 mg Tablet 40 mg PO QPM Calcium 600 + D(3) 600 mg calcium- 200 unit Capsule 1 cap PO QAM hydralazine 100 mg tablet 100 mg PO BID B-complex with vitamin C Tablet 1 tab PO QAM albuterol sulfate 90 mcg/actuation HFA aerosol inhaler 2 puff INHALATION UD PRN (Reason: Shortness Of Breath Or Wheezing) amlodipine 10 mg tablet 10 mg PO QAM multivitamin Tablet 1 tab PO DAILY ascorbic acid (vitamin C) [Vitamin C] 500 mg Tablet 500 mg PO QAM nitroglycerin 0.4 mg tablet, sublingual 0.4 mg sublingual DIRECTED PRN (Reason: Chest Pain) pantoprazole 40 mg Tablet,Delayed Release (Dr/Ec) 40 mg PO BID Qty: 60 0RF vitamin E 50 unit Capsule 50 unit PO DAILY Discontinued benzonatate 100 mg capsule 100 mg PO BID PRN (Reason: Unknown) tramadol 50 mg tablet 50 mg PO TID PRN (Reason: pain) Qty: 60 0RF furosemide 20 mg tablet 20 mg PO DAILY Qty: 90 3RF trazodone 50 mg tablet 50 mg PO HS PRN (Reason: Sleep) magnesium oxide 500 mg tablet 500 mg PO DAILY Qty: 30 0RF carvedilol 3.125 mg tablet 3.125 mg PO BID Patient Comments: currently out of rx but will get refllled Discharge Orders: Discharge Order (Routine); Ordered 10/20/22 Ordered By: Aracely Fong Admission Data Admit Date/Time: 10/12/22 05:29 Attending Provider: Aracely Fong Admit Provider: David Willard Primary Care Provider: Darcy Mancilla Other Providers: David Willard ; Coleman Bauer ; Deepthi Berman ; Ozzy Brandt ; Carri Shipley ; Mark Love ; Maki Bearden ; Micaela Mccormack ; Broderick Payne ; Grover Edwards Jr ; [facility] Coding Level of Care Code 57734 INP/OBS DISCH >30 MIN Diagnoses Left sided abdominal pain R10.9 Constipation K59.00 Celiac artery stenosis I77.1 Acute encephalopathy G93.40 Acute blood loss anemia D62 Pneumonia J18.9 COPD exacerbation J44.1 Chronic kidney disease, stage V N18.5 Anemia D64.9 Anemia type: unspecified type Hypertension I10 Hypertension type: unspecified Hyperkalemia E87.5 Hyponatremia E87.1 GERD (gastroesophageal reflux disease) K21.9 Hypothyroidism E03.9 Hyperlipidemia E78.5 Aortic stenosis I35.0 AVM (arteriovenous malformation) of small bowel, acquired with hemorrhage K55.21 Tobacco dependence F17.200 Anxiety F41.9 Insomnia G47.00
[2022-10-20] MEDS ORDERED: EPOETIN ALFA 10,000 UNITS/ML VIAL SQ ONE ×2 (18:00)
== END 2022-10-20 15:59 | disposition home health service (06) | DRG 193 ==
LOC: ED 22:13 → EDINP 10-12 05:29 → SUATTDRO 10-12 05:29 → 1E 10-12 06:15 → 2S 10-12 22:26

== ENCOUNTER 2022-12-20 12:38 | Inpatient (IN) ==
[2022-12-20] MEDS ORDERED: SODIUM CHLORIDE 0.9% 500 ML IV ONE (12:47)
[2022-12-20 13:15] LABS: Basophils # (auto) 0.03 K/uL (0-0.2); Basophils % (auto) 0.5 %; Eosinophils # (auto) 0.08 K/uL (0-0.50); Eosinophils % (auto) 1.2 %; Hematocrit (blood only) 21.8 % (37.0-47.0); Hemoglobin 7.2 g/dl (12.0-16.0); Immature Granulocytes # (auto) 0.01 K/uL (0.01-0.20); Immature Granulocytes % (auto) 0.2 %; Lymphocytes # (auto) 1.58 K/uL (1.2-3.4); Lymphocytes % (auto) 24.4 %; Mean Corpuscular Hemoglobin 31.7 pg (25.0-34.0); Mean Platelet Volume 9.9 fL (9.4-12.4); Monocytes # (auto) 0.64 K/uL (0.11-0.59); Monocytes % (auto) 9.9 %; Neutrophils # (auto) 4.14 K/uL (1.40-6.50); Neutrophils % (auto) 63.8 %; Platelet Count 189 K/uL (130-400); RDW Coefficient of Variation 15.5 % (11.5-14.5); RDW Standard Deviation 53.7 fL (36.4-46.3); Red Blood Count 2.27 M/uL (4.20-5.40); White Blood Count 6.48 K/ul (4.8-10.8)
[2022-12-20] MEDS ORDERED: ALBUT/IPRATROP 3MG/0.5MG NEB 3 ML VIAL NEB STA (13:25)
[2022-12-20] MEDS ORDERED: FAMOTIDINE 20MG IV PUSH 20 MG/5 ML SYR IV STA (13:25)
[2022-12-20 13:31] LABS: RBC Morphology Unremarkable
[2022-12-20 13:33] LABS: Alanine Aminotransferase 10 U/L (7-52); Albumin Globulin Ratio 1.7 (0.9-2); Albumin Level 3.8 gm/dl (3.4-5.0); Alkaline Phosphatase 111 U/L (34-104); Anion Gap 10 (3-11); Aspartate Aminotransferase 20 U/L (13-39); BUN Creatinine Ratio 11.4 (10-20); Bilirubin,Total 0.6 mg/dl (0.2-1.0); Blood Urea Nitrogen 43 mg/dl (6-23); Calcium 9.4 mg/dl (8.6-10.3); Carbon Dioxide 33 mmol/L (21-32); Chloride 88 mmol/L (98-107); Est GFR (African American) 12.6 ml/min; Est GFR (Non-African American) 10.9 ml/min; Globulin 2.3 gm/dl (2.5-4.0); Glucose 98 mg/dl (70-99(Fasting)); Lipase 85 U/L (11-82); Phosphorus 3.5 mg/dl (2.5-4.9); Potassium 4.5 mmol/L (3.5-5.1); Sodium 131 mmol/L (136-145); Total Protein 6.1 gm/dl (6.0-8.3)
[2022-12-20 13:53] LABS: Troponin I High Sensitivity 173.8 pg/ml (0-14)
--- NOTE | 2022-12-20 13:56 | XRay Report ---
XR chest 1V portable HISTORY: dizziness COMPARISON: Chest 10/16/2022. FINDINGS: No pneumothorax. No pleural effusions. No focal lung consolidations to suggest a pneumonia. No evidence for pulmonary edema. The cardiac silhouette remains mildly enlarged. There is mild inter stitial thickening and a few small linear densities at the left lung base. This is likely chronic. Th ere are calcifications within the aortic knob. IMPRESSION: No acute process. ACT 112: Negative or not required by law. Electronically signed by: Faisal Azul M.D. 12/20/2022 1:55 PM
[2022-12-20] MEDS ORDERED: ACETAMINOPHEN 1,000 MG/100 ML VIAL IV STA (14:11)
--- NOTE | 2022-12-20 14:28 | CT Scan Report ---
HEAD CT NONCONTRAST CT DOSE: HISTORY: esrd, chest/neck pain, dizziness TECHNIQUE: Multiaxial CT images of the head were performed without the use of intravenous contrast. A utomated exposure control was utilized for this study. A dose lowering technique was utilized adheri ng to the principles of ALARA. Comparison: Head CT 03/30/2021. Findings: The paranasal sinuses and mastoid air cells are clear. The calvarium and skull base are int act. There is no mass, hematoma, midline shift, acute infarct. White matter hypodensity is nonspecifi c but suggestive of microvascular ischemic change. The ventricles and sulci demonstrate mild age-rela janelle involutional changes. Impression: No significant change compared to the prior study. No acute intracranial abnormality. ACT 112: Negative or not required by law. Electronically signed by: Faisal Azul M.D. 12/20/2022 2:25 PM
--- NOTE | 2022-12-20 14:32 | CT Scan Report ---
CT soft tissue neck wo con CT DOSE: CLINICAL HISTORY: esrd, chest/neck pain, dizziness TECHNIQUE: Multiaxial CT images of the neck were performed without contrast. Sagittal and coronal ref ormations were performed at the workstation by the radiologist. A dose lowering technique was utiliz ed adhering to the principles of ALARA. COMPARISON STUDY: CTA neck 04/04/2013. FINDINGS: No fractures within the cervical spine. There is moderate to severe disc space narrowing at C3-C4 and C4-C5 with anterior endplate osteophytes. Nlvf-wq-eijrrdpu facet degenerative changes with in the cervical spine. Prior bilateral lens replacement. Otherwise, the orbits are unremarkable. Prev ertebral soft tissues and the epiglottis are normal in thickness. The major mucosal airways services appear intact. Normal thyroid gland. Mild calcified plaque within the bilateral carotid arteries. No pneumothorax. Emphysema. The paranasal sinuses and mastoid air cells are clear. The pterygopalatine f sriram and paratracheal fat spaces are well-maintained. The parotid and submandibular glands appear sym metric. No mass, lymphadenopathy, or abscess identified within the neck. No radiopaque foreign bodies . IMPRESSION: No acute abnormality within the neck. Additional findings as described above. ACT 112: Negative or not required by law. Electronically signed by: Faisal Azul M.D. 12/20/2022 2:30 PM
--- NOTE | 2022-12-20 14:40 | CT Scan Report ---
CT chest diagnostic wo con CT DOSE: 2407.38 mGy.cm HISTORY: Anterior chest pain. esrd, chest/neck pain, dizziness TECHNIQUE: Multiaxial CT images of the chest were performed without contrast. A dose lowering techni que was utilized adhering to the principles of ALARA. COMPARISON: Chest CT 10/12/2022. FINDINGS: Mild bronchial wall thickening within the right lower lobe. This has improved. The remainin g airways are patent. No pneumothorax. No pleural effusions. Mild emphysema again noted. A 4 mm nodul ar density within the base of the lingula on image 188. This was not present on the study performed 2 months earlier. Therefore, this likely represents an area of scarring or atelectasis. No suspicious pulmonary nodules identified. Groundglass densities within the base of the right lower lobe have almo st completely resolved in the interval. This favors a resolving pneumonitis. No new focal lung consol idations identified. Left basilar linear densities consistent with subsegmental atelectasis. No acute fractures identified. Limited views of the upper abdomen demonstrate a normal liver and spleen. Prio r cholecystectomy. Bilateral renal hypodense lesions favor cysts. The heart is mildly enlarged. Aorti c and mitral annulus calcifications are noted. Hypodense blood pool consistent with underlying anemia . This remains unchanged. Moderate coronary artery calcifications, unchanged. No significant pericard ial effusion. The main pulmonary artery is dilated up to 3.8 cm. This remains unchanged and is consis tent with pulmonary arterial hypertension. Calcified plaque within the normal caliber thoracic aorta. Normal caliber esophagus. No mediastinal or hilar lymphadenopathy. IMPRESSION: 1. No acute process within the chest. 2. Near-complete resolution of the right lower lobe airspace opacities within the few small groundgla ss densities remaining. 3. No new focal lung consolidations to suggest a pneumonia. 4. Mild bronchial wall thickening within the right lower lobe which has improved. 5. Emphysema. 6. Pulmonary arterial hypertension, unchanged. 7. Additional findings as described above. ACT 112: Negative or not required by law. Electronically signed by: Faisal Azul M.D. 12/20/2022 2:38 PM
[2022-12-20 15:31] LABS: Reticulocyte % 2.1 % (0.5-2.0); Reticulocytes # 0.05 10^6/uL (0.02-0.10)
[2022-12-20] MEDS ORDERED: PANTOPRAZOLE BOLUS/DRIP 1 EACH IV STA (16:05)
[2022-12-20] MEDS ORDERED: PANTOprazole 80 MG in DEXTROSE 5% 100 ML IV ONE (16:05)
[2022-12-20] MEDS ORDERED: SODIUM CHLORIDE 0.9% 250 ML IV PRN (16:05)
--- NOTE | 2022-12-20 16:14 | Emergency Department Note ---
Impression & Plan Symptomatic anemia, ESRD on hemodialysis, Elevated troponin, Neck pain, COPD (chronic obstructive pulmonary disease), Current every day smoker ED Provider Note NAME: FELI JAUREGUI AGE: 77 SEX: F ARRIVES VIA: Walk-In INFORMANT: Patient ED PROVIDER(S): Quintin Morataya MD CHIEF COMPLAINT: Dizziness, Neck pain PLAN: Disposition: Admit MEDICAL DECISION MAKING: The patient is a pleasant 77-year-old woman with a past medical history COPD, current everyday smoker, GERD, GI bleeding, hypertension, hyperlipidemia, hypothyroidism of end-stage renal disease on hemodialysis though she does still urinate daily who presents to the emergency department via walk-in accompanied by her daughter for evaluation of ongoing generalized weakness, lightheadedness and anterior neck pain which she attributes to her thyroid causing pain because of the location of where it is occurring. She denies chest pain at this time but reports she has had intermittent left-sided pain that would last seconds and feels like a pressure over the same amount of time that her neck has hurt. She denies nausea, vomiting or diarrhea. She reports her stools have been black and may have seen some red blood in the stool but thinks she is taking iron but is not sure. The patient did have dialysis yesterday and felt more fatigued than she has been recently as she usually "bounces back". She denies any cough, congestion. On my evaluation the patient is chronically ill-appearing but no acute distress, afebrile with stable vital signs. She appears clinically dry with dry mucous membranes and slight skin tenting. Her abdomen is nontender. Lungs with intermittent wheezes without increased work of breathing. EKG without overt acute ischemia. Chest x-ray negative for acute cardiopu lmonary process. WBC and platelets within normal limits. H/H 7.2/21.8 WBC and platelets within normal limits. Hemoglobin 7.8 down from 10 a week ago. Chemistry without metabolic acidosis. Creatinine 3.78 with BUN of 43 in setting of the patient's known end-stage renal disease. Electrolytes without significant abnormality. LFTs unremarkable. Initial high-sensitivity troponin was elevated at 173, increased from prior in September which was similarly done in the setting of her end- stage renal disease. Lipase is more than above normal and nonspecific. TSH is normal. CT of the head, neck and chest performed without contrast and were negative for acute abnormalities. Upon reevaluation the patient denied any significant change after DuoNeb and gentle IV fluid hydration. We did review her low hemoglobin and given her symptoms of ongoing weakness lightheadedness and her elevated from baseline troponin she did agree with plan for admission for further management. Moreover given symptomatic anemia with elevated troponin will administer 1 unit PRBCs. Patient consented for this. Additionally Protonix bolus and drip ordered for possible upper GI bleeding. Case was d/w VIRGEN Carballo hospitalist who will evaluate the patient for admission. Of note, the patient declined rectal examination subsequently due to feeling anxiety and restlessness. Repeat EKG was performed and there is no significant change without overt ST elevation. Patient's repeat delta 90 minute high- sensitivity troponin was downtrending to 148. Nicotine patch ordered. Further management per admitting team Triage Nursing notes reviewed and agree them. Prior/outside medical records reviewed Vital Signs: reviewed Differential diagnosis: Benign positional vertigo, dehydration, hypovolemia, anemia, tumor, infection, hypoglycemia, electrolyte abnormalities, cardiac sources, intracerebral event, toxicologic, neurologic, as well as other pathologies. ER treatment provided: See below. Diagnostics interpreted by me: ECG: Sinus rhythm, 91 bpm, first-degree AV block, no ectopy, nonspecific ST and T wave abnormality, no overt ST elevation or depression, QTc 464, QRS 88. Similar to October 14, 2022. Cardiac Monitoring: An order for continuous cardiac monitoring was placed and demonstrated sinus rhythm, 91 bpm, no ectopy. Laboratory studies: See below Imaging studies: See below Consultation(s): Case was d/w VIRGEN Carballo hospitalist who will evaluate the patient for admission. HPI: The patient is a pleasant 77-year-old woman with a past medical history COPD, current everyday smoker, GERD, GI bleeding, hypertension, hyperlipidemia, hypothyroidism of end-stage renal disease on hemodialysis though she does still urinate daily who presents to the emergency department via walk-in accompanied by her daughter for evaluation of ongoing generalized weakness, lightheadedness and anterior neck pain which she attributes to her thyroid causing pain because of the location of where it is occurring. She denies chest pain at this time but reports she has had intermittent left-sided pain that would last seconds and feels like a pressure over the same amount of time that her neck has hurt. She denies nausea, vomiting or diarrhea. She reports her stools have been black and may have seen some red blood in the stool but thinks she is taking iron but is not sure. The patient did have dialysis yesterday and felt more fatigued than she has been recently as she usually "bounces back". She denies any cough, congestion. ROS: See above HPI for pertinent positives & negatives. A total of 10 systems r eviewed and were otherwise negative. VITALS:See Below PHYSICAL EXAMINATION: GENERAL: Awake, alert, anxious but well-appearing, in no distress HENT: Normocephalic, atraumatic. Oropharynx with dry mucous membranes and otherwise unremarkable. No tongue elevation or trismus. EYES: Normal conjunctiva. Sclera non-icteric. NECK: Supple. No nuchal rigidity. FROM. No JVD. No bruits. No pain with tracheal manipulation. RESPIRATORY: Intermittent wheezes and otherwise clear without increased work of breathing. CARDIAC: Regular rate, normal rhythm. Extremities warm and well perfused. Pulses equal. LUE AV fistula with palpable thrill. ABDOMEN: Soft, non-distended. No tenderness to palpation. No rebound or guarding. No masses. RECTAL: Deferred. MUSCULOSKELETAL: Chest examination reveals no tenderness. The back is symmetrical on inspection without obvious abnormality. There is no CVA tenderness to palpation. No joint edema. LOWER EXTREMITIES: Calves are equal size bilaterally and non-tender. No edema. No discoloration. NEURO: Normal sensorium. No sensory or motor deficits noted. SKIN: Dry with tenting. No rash or jaundice noted. 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, acquired with hemorrhage Bereavement due to life event Blood in stool Cardiac murmur Carotid stenosis, left Chronic back pain Chronic obstructive pulmonary disease Chronic obstructive pulmonary disease CKD (chronic kidney disease) stage 4, GFR 15-29 ml/min Constipation DVT prophylaxis Encounter for pre-operative examination ESRD on hemodialysis GERD (gastroesophageal reflux disease) GI bleed Hemorrhagic gastritis Hx of gout Hyperlipidemia Hypertension Hypothyroidism Melena Mesenteric artery stenosis Peripheral arterial disease Pulmonary edema Renal artery stenosis Symptomatic anemia Tobacco use disorder Tobacco use disorder Surgical History History of bilateral cataract extraction History of carotid endarterectomy (12/10/20) History of carpal tunnel release of both wrists History of cholecystectomy History of colonoscopy History of colonoscopy with polypectomy History of esophagogastroduodenoscopy (EGD) History of laminectomy History of repair of right rotator cuff History of tooth extraction Family History Mother Family history of diabetes mellitus Brother Family history of diabetes mellitus Sister Family history of diabetes mellitus Other No family history of adverse response to anesthesia Social History Smoking Status: Current every day smoker Tobacco Type: Cigarettes Age Started Using Tobacco: 20; Cigarettes Per Day: 20 PER DAY; Second Hand Exposure: Yes; Do You Dip or Chew Tobacco: No; Hx Alcohol Use: Yes Alcohol type: wine Hx Substance Use: No Preferred Language: Hong Konger Communication Ability: Effective Press Operator Apprentice Required: No Beliefs That Will Affect Care: None marital status: Current Living Situation: Alone current occupational status: 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 [employer] How many Children do You have: 2 Feels Safe at Home: Yes Childhood Exposure to Second-Hand Smoke: No Assistive Devices: Walker Allergies Allergies Allergy/AdvReac Type Severity Reaction Status Date / Time codeine Allergy Intermediate RASH, Verified 12/20/22 15:06 RAPID HEART BEAT sulfamethoxazole AdvReac Severe ELEVATED Verified 12/20/22 15:07 POTASSIUM, BRADYCARDIC "HEART TRIED TO SHUT DOWN" trimethoprim AdvReac Severe ELEVATED Verified 12/20/22 15:07 POTASSIUM, BRADYCARDIC "HEART TRIED TO SHUT DOWN" gabapentin AdvReac Intermediate HALLUCINATIONS; Verified 12/20/22 15:07 SCREAMING/YELLING hydromorphone [From Dilaudid] AdvReac Intermediate Hallucinati Verified 12/20/22 15:06 ng morphine AdvReac Unknown unsure Verified 12/20/22 15:06 "might be okay to take" oxycodone [From Percocet] AdvReac Unknown unsure Verified 12/20/22 15:06 "might be okay to take" Home Meds Home Medications Medication Instructions Recorded Confirmed atorvastatin 40 mg tablet 40 mg PO QPM 09/16/18 12/20/22 multivitamin 1 tab PO DAILY 12/10/20 12/20/22 albuterol sulfate 90 mcg/actuation 2 puff inhalation UD PRN Shortness 04/06/21 12/20/22 aerosol inhaler Of Breath Or Wheezing carvedilol 3.125 mg tablet 3.125 mg PO BID 12/09/22 12/20/22 sevelamer carbonate 800 mg tablet 800 mg PO TIDM 12/20/22 12/20/22 torsemide 20 mg tablet 80 mg PO BID 12/20/22 12/20/22 Previous Rx's Medication Instructions Recorded pantoprazole 40 mg tablet,delayed 40 mg PO BID #60 tabs 04/01/21 release levothyroxine 25 mcg tablet 25 mcg PO QAM #90 tabs 09/25/22 isosorbide mononitrate 30 mg 30 mg PO QAM #30 tabs 10/20/22 tablet,extended release 24 hr cyanocobalamin (vitamin B-12) 100 100 mcg PO DAILY #30 tabs 11/23/22 mcg tablet (Vitamin B-12) nitroglycerin 0.4 mg sublingual 0.4 mg sublingual DIRECTED PRN 11/23/22 tablet Chest Pain #10 tabs trazodone 50 mg tablet 25 mg PO DAILY #30 tabs 11/25/22 amlodipine 5 mg tablet 2.5 mg PO DAILY #60 tabs 12/16/22 sertraline 25 mg tablet (Zoloft) 25 mg PO DAILY #30 tabs 12/16/22 vitamin B complex-vitamin C-folic 1 tab PO DAILY #30 tabs 12/16/22 acid 0.8 mg tablet (Renal-Carissa) Results & Data (ED) Vital Signs Vital Signs - 24 hr 12/20/22 12:39 12/20/22 13:00 12/20/22 13:00 Temperature 36.3 C L Temperature Source Temporal Artery Scan Pulse Rate 76 89 82 Pulse Rate from SpO2 Sensor Pulse Rhythm Pulse Strength Respiratory Rate 18 22 Respiratory Effort / Characteristics Non-Labored Respiratory Depth Normal Blood Pressure 122/51 L 118/51 L Blood Pressure Mean 74 73 Blood Pressure Position Pulse Oximetry 95 96 Oxygen Delivery Method Room Air Room Air Oxygen Flow Rate Sepsis Recent Fever Within 48 Hours No Sepsis New/Unexplained Change in Mental Status No Sepsis Action Taken by Nursing No Action Required 12/20/22 13:30 12/20/22 14:30 12/20/22 15:00 Temperature Temperature Source Pulse Rate 69 83 93 H Pulse Rate from SpO2 Sensor 85 Pulse Rhythm Pulse Strength Respiratory Rate 16 22 18 Respiratory Effort / Characteristics Respiratory Depth Blood Pressure 126/49 L 160/116 H 153/59 H Blood Pressure Mean 74 130 90 Blood Pressure Position Pulse Oximetry 96 96 100 Oxygen Delivery Method Room Air Nasal Cannula Nasal Cannula Oxygen Flow Rate 2 2 Sepsis Recent Fever Within 48 Hours Sepsis New/Unexplained Change in Mental Status Sepsis Action Taken by Nursing 12/20/22 15:21 12/20/22 16:00 12/20/22 16:30 Temperature Temperature Source Pulse Rate Pulse Rate from SpO2 Sensor 93 H 93 H 94 H Pulse Rhythm Pulse Strength Respiratory Rate Respiratory Effort / Characteristics Respiratory Depth Blood Pressure 137/90 130/74 147/66 H Blood Pressure Mean 105 92 93 Blood Pressure Position Pulse Oximetry 99 98 95 Oxygen Delivery Method Room Air Room Air Room Air Oxygen Flow Rate Sepsis Recent Fever Within 48 Hours Sepsis New/Unexplained Change in Mental Status Sepsis Action Taken by Nursing 12/20/22 17:57 Temperature 36.9 C Temperature Source Oral Pulse Rate 76 Pulse Rate from SpO2 Sensor Pulse Rhythm Regular Pulse Strength Normal Respiratory Rate 18 Respiratory Effort / Characteristics Respiratory Depth Blood Pressure 136/63 Blood Pressure Mean 87 Blood Pressure Position Sitting Pulse Oximetry 94 Oxygen Delivery Method Oxygen Flow Rate Sepsis Recent Fever Within 48 Hours Sepsis New/Unexplained Change in Mental Status Sepsis Action Taken by Nursing Laboratory Data 12/20/22 13:01 12/20/22 13:01 Lab Results 12/20/22 12/20/22 12/20/22 Range/Units 13:01 13:01 13:01 WBC 6.48 (4.8-10.8) K/ul RBC 2.27 L (4.20-5.40) M/uL Hgb 7.2 L (12.0-16.0) g/dl Hct 21.8 L (37.0-47.0) % MCV 96.0 (80.0-100.0) fL MCH 31.7 (25.0-34.0) pg MCHC 33.0 (32.0-36.0) g/dL RDW Std Deviation 53.7 H (36.4-46.3) fL RDW Coeff of Kris 15.5 H (11.5-14.5) % Plt Count 189 (130-400) K/uL MPV 9.9 (9.4-12.4) fL Immature Gran % (Auto) 0.2 % Neut % (Auto) 63.8 % Lymph % (Auto) 24.4 % Addison % (Auto) 9.9 % Eos % (Auto) 1.2 % Baso % (Auto) 0.5 % Reticulocyte % (Auto) (0.5-2.0) % Neut # (Auto) 4.14 (1.40-6.50) K/uL Lymph # (Auto) 1.58 (1.2-3.4) K/uL Addison # (Auto) 0.64 H (0.11-0.59) K/uL Eos # (Auto) 0.08 (0-0.50) K/uL Baso # (Auto) 0.03 (0-0.2) K/uL Reticulocyte # (0.02-0.10) 10^6/uL Immature Gran # (Auto) 0.01 (0.01-0.20) K/uL RBC Morphology Unremarkable Sodium 131 L (136-145) mmol/L Potassium 4.5 (3.5-5.1) mmol/L Chloride 88 L (98-107) mmol/L Carbon Dioxide 33 H (21-32) mmol/L Anion Gap 10 (3-11) BUN 43 H (6-23) mg/dl Creatinine 3.78 H (0.6-1.2) mg/dl Est Cr Clr Drug Dosing Not Reportable Est GFR ( Amer) 12.6 ml/min Est GFR (Non-Af Amer) 10.9 ml/min BUN/Creatinine Ratio 11.4 (10-20) Glucose 98 (70-99(Fasting)) mg/dl Calcium 9.4 (8.6-10.3) mg/dl Phosphorus 3.5 (2.5-4.9) mg/dl Magnesium 2.0 (1.7-2.4) mg/dl Iron (35-150) mcg/dl Unsaturated IBC (155-355) mcg/dl Transferrin (200-360) mg/dl Ferritin (8-388) ng/ml Total Bilirubin 0.6 (0.2-1.0) mg/dl AST 20 (13-39) U/L ALT 10 (7-52) U/L Alkaline Phosphatase 111 H (34-104) U/L Troponin I High Sens 173.8 H* (0-14) pg/ml Total Protein 6.1 (6.0-8.3) gm/dl Albumin 3.8 (3.4-5.0) gm/dl Globulin 2.3 L (2.5-4.0) gm/dl Albumin/Globulin Ratio 1.7 (0.9-2) Lipase 85 H (11-82) U/L TSH 2.638 (0.300-4.500) uIu/ml SARS-CoV-2, RNA, NAAT (NEGATIVE) Blood Type Antibody Screen Crossmatch 12/20/22 12/20/22 12/20/22 Range/Units 13:01 15:34 16:12 WBC (4.8-10.8) K/ul RBC (4.20-5.40) M/uL Hgb (12.0-16.0) g/dl Hct (37.0-47.0) % MCV (80.0-100.0) fL MCH (25.0-34.0) pg MCHC (32.0-36.0) g/dL RDW Std Deviation (36.4-46.3) fL RDW Coeff of Kris (11.5-14.5) % Plt Count (130-400) K/uL MPV (9.4-12.4) fL Immature Gran % (Auto) % Neut % (Auto) % Lymph % (Auto) % Addison % (Auto) % Eos % (Auto) % Baso % (Auto) % Reticulocyte % (Auto) 2.1 H (0.5-2.0) % Neut # (Auto) (1.40-6.50) K/uL Lymph # (Auto) (1.2-3.4) K/uL Addison # (Auto) (0.11-0.59) K/uL Eos # (Auto) (0-0.50) K/uL Baso # (Auto) (0-0.2) K/uL Reticulocyte # 0.05 (0.02-0.10) 10^6/uL Immature Gran # (Auto) (0.01-0.20) K/uL RBC Morphology Sodium (136-145) mmol/L Potassium (3.5-5.1) mmol/L Chloride (98-107) mmol/L Carbon Dioxide (21-32) mmol/L Anion Gap (3-11) BUN (6-23) mg/dl Creatinine (0.6-1.2) mg/dl Est Cr Clr Drug Dosing Est GFR ( Amer) ml/min Est GFR (Non-Af Amer) ml/min BUN/Creatinine Ratio (10-20) Glucose (70-99(Fasting)) mg/dl Calcium (8.6-10.3) mg/dl Phosphorus (2.5-4.9) mg/dl Magnesium (1.7-2.4) mg/dl Iron 59 (35-150) mcg/dl Unsaturated IBC 248 (155-355) mcg/dl Transferrin 228 (200-360) mg/dl Ferritin 302.7 (8-388) ng/ml Total Bilirubin (0.2-1.0) mg/dl AST (13-39) U/L ALT (7-52) U/L Alkaline Phosphatase (34-104) U/L Troponin I High Sens 148.6 H* (0-14) pg/ml Total Protein (6.0-8.3) gm/dl Albumin (3.4-5.0) gm/dl Globulin (2.5-4.0) gm/dl Albumin/Globulin Ratio (0.9-2) Lipase (11-82) U/L TSH (0.300-4.500) uIu/ml SARS-CoV-2, RNA, NAAT NEGATIVE (NEGATIVE) Blood Type Antibody Screen Crossmatch 12/20/22 Range/Units 16:23 WBC (4.8-10.8) K/ul RBC (4.20-5.40) M/uL Hgb (12.0-16.0) g/dl Hct (37.0-47.0) % MCV (80.0-100.0) fL MCH (25.0-34.0) pg MCHC (32.0-36.0) g/dL RDW Std Deviation (36.4-46.3) fL RDW Coeff of Kris (11.5-14.5) % Plt Count (130-400) K/uL MPV (9.4-12.4) fL Immature Gran % (Auto) % Neut % (Auto) % Lymph % (Auto) % Addison % (Auto) % Eos % (Auto) % Baso % (Auto) % Reticulocyte % (Auto) (0.5-2.0) % Neut # (Auto) (1.40-6.50) K/uL Lymph # (Auto) (1.2-3.4) K/uL Addison # (Auto) (0.11-0.59) K/uL Eos # (Auto) (0-0.50) K/uL Baso # (Auto) (0-0.2) K/uL Reticulocyte # (0.02-0.10) 10^6/uL Immature Gran # (Auto) (0.01-0.20) K/uL RBC Morphology Sodium (136-145) mmol/L Potassium (3.5-5.1) mmol/L Chloride (98-107) mmol/L Carbon Dioxide (21-32) mmol/L Anion Gap (3-11) BUN (6-23) mg/dl Creatinine (0.6-1.2) mg/dl Est Cr Clr Drug Dosing Est GFR ( Amer) ml/min Est GFR (Non-Af Amer) ml/min BUN/Creatinine Ratio (10-20) Glucose (70-99(Fasting)) mg/dl Calcium (8.6-10.3) mg/dl Phosphorus (2.5-4.9) mg/dl Magnesium (1.7-2.4) mg/dl Iron (35-150) mcg/dl Unsaturated IBC (155-355) mcg/dl Transferrin (200-360) mg/dl Ferritin (8-388) ng/ml Total Bilirubin (0.2-1.0) mg/dl AST (13-39) U/L ALT (7-52) U/L Alkaline Phosphatase (34-104) U/L Troponin I High Sens (0-14) pg/ml Total Protein (6.0-8.3) gm/dl Albumin (3.4-5.0) gm/dl Globulin (2.5-4.0) gm/dl Albumin/Globulin Ratio (0.9-2) Lipase (11-82) U/L TSH (0.300-4.500) uIu/ml SARS-CoV-2, RNA, NAAT (NEGATIVE) Blood Type O Positive Antibody Screen NEGATIVE Crossmatch See Detail Administered Medications Pantoprazole Sodium 40 mg/ (Dextrose) 100 mls @ 20 mls/hr IV Q5H EVON Stop: 01/19/23 16:29 Last Infusion: 12/20/22 18:16 Dose: 0 mg/hr, 0 mls/hr Documented By: Admin: 12/20/22 16:56 Dose: 8 mg/hr, 20 mls/hr Documented By: DIONI Discontinued Medications Albuterol (Albut/Ipratrop 3mg/0.5mg Neb 3 Ml Vial) 3 ml NEB NOW STA; Protocol Stop: 12/20/22 13:26 Last Admin: 12/20/22 13:35 Dose: 3 ml Documented By: CATALINA Diazepam (Diazepam 2 Mg Tablet) 2 mg PO NOW STA Stop: 12/20/22 17:26 Last Admin: 12/20/22 17:49 Dose: 2 mg Documented By: DIONI Sodium Chloride (Nss) 500 mls @ 999 mls/hr IV .Q31M ONE Stop: 12/20/22 13:17 Last Infusion: 12/20/22 13:56 Dose: 0 mls/hr Documented By: Admin: 12/20/22 13:21 Dose: 999 mls/hr Documented By: CATALINA Famotidine (Pepcid 20mg Iv Push) 20 mg in 5 mls @ 2.5 mls/min IV NOW STA Stop: 12/20/22 13:26 Last Admin: 12/20/22 13:34 Dose: 2.5 mls/min Documented By: CATALINA Acetaminophen (Ofirmev) 1,000 mg in 100 mls @ 400 mls/hr IV NOW STA Stop: 12/20/22 14:25 Last Infusion: 12/20/22 14:39 Dose: 0 mls/hr Documented By: Infusion: 12/20/22 14:39 Dose: 0 mls/hr Documented By: Admin: 12/20/22 14:15 Dose: 400 mls/hr Documented By: KEREN Pantoprazole Sodium (Protonix Bolus/Drip) 0 mls @ 1 mls/hr IV ONE STA Stop: 12/20/22 16:06 Last Admin: 12/20/22 16:26 Dose: Not Given Documented By: DIONI Pantoprazole Sodium 80 mg/ (Dextrose) 120 mls @ 400 mls/hr IV NOW ONE Stop: 12/20/22 16:22 Last Infusion: 12/20/22 17:22 Dose: 0 mls/hr Documented By: Admin: 12/20/22 16:26 Dose: 400 mls/hr Documented By: OK Imaging Data Radiologist's Impression: Chest X-Ray 12/20/22 12:46 XR chest 1V portable HISTORY: dizziness COMPARISON: Chest 10/16/2022. FINDINGS: No pneumothorax. No pleural effusions. No focal lung consolidations to suggest a pneumonia. No evidence for pulmonary edema. The cardiac silhouette remains mildly enlarged. There is mild interstitial thickening and a few small linear densities at the left lung base. This is likely chronic. There are calcifications within the aortic knob. IMPRESSION: No acute process. ACT 112: Negative or not required by law. Electronically signed by: Faisal Azul M.D. 12/20/2022 1:[address] 12/20/22 13:25 CT chest diagnostic wo con CT DOSE: 2407.38 mGy.cm HISTORY: Anterior chest pain. esrd, chest/neck pain, dizziness TECHNIQUE: Multiaxial CT images of the chest were performed without contrast. A dose lowering technique was utilized adhering to the principles of ALARA. COMPARISON: Chest CT 10/12/2022. FINDINGS: Mild bronchial wall thickening within the right lower lobe. This has improved. The remaining airways are patent. No pneumothorax. No pleural effusions. Mild emphysema again noted. A 4 mm nodular density within the base of the lingula on image 188. This was not present on the study performed 2 months earlier. Therefore, this likely represents an area of scarring or atelectasis. No suspicious pulmonary nodules identified. Groundglass densities within the base of the right lower lobe have almost completely resolved in the interval. This favors a resolving pneumonitis. No new focal lung consolidations identified. Left basilar linear densities consistent with subsegmental atelectasis. No acute fractures identified. Limited views of the upper abdomen demonstrate a normal liver and spleen. Prior cholecystectomy. Bilateral renal hypodense lesions favor cysts. The heart is mildly enlarged. Aortic and mitral annulus calcifications are noted. Hypodense blood pool consistent with underlying anemia. This remains unchanged. Moderate coronary artery calcifications, unchanged. No significant pericardial effusion. The main pulmonary artery is dilated up to 3.8 cm. This remains unchanged and is consistent with pulmonary arterial hypertension. Calcified plaque within the no rmal caliber thoracic aorta. Normal caliber esophagus. No mediastinal or hilar lymphadenopathy. IMPRESSION: 1. No acute process within the chest. 2. Near-complete resolution of the right lower lobe airspace opacities within the few small groundglass densities remaining. 3. No new focal lung consolidations to suggest a pneumonia. 4. Mild bronchial wall thickening within the right lower lobe which has improved . 5. Emphysema. 6. Pulmonary arterial hypertension, unchanged. 7. Additional findings as described above. ACT 112: Negative or not required by law. Electronically signed by: Faisal Azul M.D. 12/20/2022 2:[address] 12/20/22 13:[address] DOSE: HISTORY: esrd, chest/neck pain, dizziness TECHNIQUE: Multiaxial CT images of the head were performed without the use of intravenous contrast. Automated exposure control was utilized for this study. A dose lowering technique was utilized adhering to the principles of ALARA. Comparison: Head CT 03/30/2021. Findings: The paranasal sinuses and mastoid air cells are clear. The calvarium and skull base are intact. There is no mass, hematoma, midline shift, acute infarct. White matter hypodensity is nonspecific but suggestive of microvascular ischemic change. The ventricles and sulci demonstrate mild age-related involutional changes. Impression: No significant change compared to the prior study. No acute intracranial abnormality. ACT 112: Negative or not required by law. Electronically signed by: Faisal Azul M.D. 12/20/2022 2:[address] 12/20/22 13:25 CT soft tissue neck wo con CT DOSE: CLINICAL HISTORY: esrd, chest/neck pain, dizziness TECHNIQUE: Multiaxial CT images of the neck were performed without contrast. Sagittal and coronal reformations were performed at the workstation by the radiologist. A dose lowering technique was utilized adhering to the principles of ALARA. COMPARISON STUDY: CTA neck 04/04/2013. FINDINGS: No fractures within the cervical spine. There is moderate to severe disc space narrowing at C3-C4 and C4-C5 with anterior endplate osteophytes. [id number] facet degenerative changes within the cervical spine. Prior bilateral lens replacement. Otherwise, the orbits are unremarkable. Prevertebral soft tissues and the epiglottis are normal in thickness. The major mucosal airways services appear intact. Normal thyroid gland. Mild calcified plaque within the bilateral carotid arteries. No pneumothorax. Emphysema. The paranasal sinuses and mastoid air cells are clear. The pterygopalatine fossa and paratracheal fat spaces are well-maintained. The parotid and submandibular glands appear symmetric. No mass, lymphadenopathy, or abscess identified within the neck. No radiopaque foreign bodies. IMPRESSION: No acute abnormality within the neck. Additional findings as described above. ACT 112: Negative or not required by law. Electronically signed by: Faisal Azul M.D. 12/20/2022 2:30 PM Discharge Plan Visit Data Chief Complaint: Dizziness Stated Complaint: DIZZINESS ED Provider: Quintin Morataya Discharge Problem: Symptomatic anemia, ESRD on hemodialysis, Elevated troponin, Neck pain, COPD (chronic obstructive pulmonary disease), Current every day smoker
[2022-12-20] MEDS ORDERED: PANTOprazole 40 MG in DEXTROSE 5% 100 ML IV SCH (16:30)
[2022-12-20 16:38] LABS: Troponin I High Sensitivity 148.6 pg/ml (0-14)
[2022-12-20 16:49] LABS: Ferritin 302.7 ng/ml (8-388)
--- NOTE | 2022-12-20 17:14 | History & Physical Report ---
Date of Service December 20, 2022 Assessment & Plan (1) Neck pain: Plan: No pathology on CT Reproducible on palpation but no specific one anatomical structure on exam, no stridor Reportedly has anxiety out of control, I suspect it may be just this - only took zoloft for one day and decided it didn't work therefore stopped Recent had diazepam dose at [facility] was helpful therefore will use this Can use Lozenges as needed If persistent despite blood transfusion and diazepam consider ENT consult (2) Symptomatic anemia: Plan: Suspect from ESRD on dialysis rather than acute GI bleed IV pantoprazole 40mg BID pending FOB Generalized weakness and fatigue 1 unit blood transfusion, repeat Hgb in morning Transfuse <8 or symptomatic, may need to aim higher due to severe aortic stenosis (3) ESRD on hemodialysis: Plan: Fluid balance utilizing dialysis Consult nephrology (4) Elevated troponin: Plan: Troponin is downtrending with ongoing neck pain without specific EKG changes. Neck pain is reproducible on palpation. I do not suspect this is ACS but prudent to repeat troponin in AM with TTE and EKG. Troponin most likely a result of her anemia, aortic stenosis and ESRD (5) Aortic stenosis: Plan: Repeat TTE in AM Consult cardiology (6) Current every day smoker: Plan: Nicotine patch (7) Anxiety: Plan: Not taking Zoloft Use diazepam now and monitor response, may need extra dosing in hospital but likely can (8) Hypothyroidism: Plan: TSH WNL Continue levothyroxine 25 mcg PO daily (9) Chronic obstructive pulmonary disease: Plan: On no maintenance treatment for this No wheezing to suggest out exacerbation Plan VTE Prophylaxis - chemical deferred pending ruling out GI bleed Diet - dialysis renal Disposition - admit to med/surg Admission and Anticipated Discharge Date Admission Date: December 20, 2022 History of Present Illness Chief Complaint: Neck pain, generalized weakness and fatigue Primary Care Provider: MAREN Barrigaarpan Chapin is a 77 year old female with severe aortic stenosis, ESRD on dialysis and chronic anemia who presents to the ER neck pain. She reports this started a couple of days ago, getting progressively worse. Feeling of not being able to breath with this although not in respiratory distress. No sore throat and able to eat fine. The pain is from her submandibular gland to her sternal notch. She reports sucking on lozenges helps a little. She is unclear whether she has had this neck pain previously but her daughter at bedside reports this is new. Constant with no relief for the last 2 days. No fever, chills, chest pain, shoulder pain, diaphoresis. Today because she felt generally fatigued and weak (this is how she normally feels when she gets anemic) she decided to come to the ER. Mild lightheadedness. Allergies Allergy/AdvReac Type Severity Reaction Status Date / Time codeine Allergy Intermediate RASH, Verified 12/20/22 15:06 RAPID HEART BEAT sulfamethoxazole AdvReac Severe ELEVATED Verified 12/20/22 15:07 POTASSIUM, BRADYCARDIC "HEART TRIED TO SHUT DOWN" trimethoprim AdvReac Severe ELEVATED Verified 12/20/22 15:07 POTASSIUM, BRADYCARDIC "HEART TRIED TO SHUT DOWN" gabapentin AdvReac Intermediate HALLUCINATIONS; Verified 12/20/22 15:07 SCREAMING/YELLING hydromorphone [From Dilaudid] AdvReac Intermediate Hallucinati Verified 12/20/22 15:06 ng morphine AdvReac Unknown unsure Verified 12/20/22 15:06 "might be okay to take" oxycodone [From Percocet] AdvReac Unknown unsure Verified 12/20/22 15:06 "might be okay to take" Home Medications Medication Instructions Recorded Confirmed Type atorvastatin 40 mg tablet 40 mg PO QPM 09/16/18 12/20/22 History multivitamin 1 tab PO DAILY 12/10/20 12/20/22 History pantoprazole 40 mg tablet,delayed 40 mg PO BID #60 tabs 04/01/21 12/20/22 Rx release albuterol sulfate 90 mcg/actuation 2 puff inhalation UD PRN Shortness 04/06/21 12/20/22 History aerosol inhaler Of Breath Or Wheezing levothyroxine 25 mcg tablet 25 mcg PO QAM #90 tabs 09/25/22 12/20/22 Rx isosorbide mononitrate 30 mg 30 mg PO QAM #30 tabs 10/20/22 12/20/22 Rx tablet,extended release 24 hr cyanocobalamin (vitamin B-12) 100 100 mcg PO DAILY #30 tabs 11/23/22 12/20/22 Rx mcg tablet (Vitamin B-12) nitroglycerin 0.4 mg sublingual 0.4 mg sublingual DIRECTED PRN 11/23/22 12/20/22 Rx tablet Chest Pain #10 tabs trazodone 50 mg tablet 25 mg PO DAILY #30 tabs 11/25/22 12/20/22 Rx carvedilol 3.125 mg tablet 3.125 mg PO BID 12/09/22 12/20/22 History amlodipine 5 mg tablet 2.5 mg PO DAILY #60 tabs 12/16/22 12/20/22 Rx sertraline 25 mg tablet (Zoloft) 25 mg PO DAILY #30 tabs 12/16/22 12/20/22 Rx vitamin B complex-vitamin C-folic 1 tab PO DAILY #30 tabs 12/16/22 12/20/22 Rx acid 0.8 mg tablet (Renal-Carissa) sevelamer carbonate 800 mg tablet 800 mg PO TIDM 12/20/22 12/20/22 History torsemide 20 mg tablet 80 mg PO BID 12/20/22 12/20/22 History Past Med/Surg History Medical History Anemia due to GI blood loss AV fistula AVM (arteriovenous malformation) AVM (arteriovenous malformation) of small bowel, 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, acquired with hemorrhage Bereavement due to life event Blood in stool Cardiac murmur Carotid stenosis, left Chronic back pain Chronic obstructive pulmonary disease Chronic obstructive pulmonary disease CKD (chronic kidney disease) stage 4, GFR 15-29 ml/min Constipation DVT prophylaxis Encounter for pre-operative examination ESRD on hemodialysis GERD (gastroesophageal reflux disease) GI bleed Hemorrhagic gastritis Hx of gout Hyperlipidemia Hypertension Hypothyroidism Melena Mesenteric artery stenosis Peripheral arterial disease Pulmonary edema Renal artery stenosis Symptomatic anemia Tobacco use disorder Tobacco use disorder Surgical History History of bilateral cataract extraction History of carotid endarterectomy (12/10/20) History of carpal tunnel release of both wrists History of cholecystectomy History of colonoscopy History of colonoscopy with polypectomy History of esophagogastroduodenoscopy (EGD) History of laminectomy History of repair of right rotator cuff History of tooth extraction Family History Mother Family history of diabetes mellitus Brother Family history of diabetes mellitus Sister Family history of diabetes mellitus Other No family history of adverse response to anesthesia Social History Smoking Status: Current every day smoker Tobacco Type: Cigarettes Age Started Using Tobacco: 20; Cigarettes Per Day: 10; Second Hand Exposure: Yes; Do You Dip or Chew Tobacco: No; Hx Alcohol Use: Yes Alcohol type: wine Hx Substance Use: No Preferred Language: [place] Communication Ability: Effective Water Taxi [employer] Required: No Beliefs That Will Affect Care: None marital status: Current Living Situation: Alone Current Living Situation Comment: Apartment current occupational status: 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 [employer] How many Children do You have: 2 Feels Safe at Home: Yes Childhood Exposure to Second-Hand Smoke: No Assistive Devices: Denture - Upper, Denture - Lower, Glasses and Walker Review of Systems Review of Systems: All systems reviewed & are unremarkable except as noted in HPI & below Physical Exam Constitutional: WD/WN, vitals as above ENMT: external ear and nose normal, oropharynx normal Neck: normal visual inspection, trachea midline and + neck tender (from submandibular gland to sternal notch); no tracheal deviation, no anterior neck swelling, no submandibular swelling and no midline deformity Thyroid: normal thyroid Respiratory: normal respiratory effort; no respiratory distress and no stridor Auscultation: no diminished lung sounds, no crackles, no rales, no rhonchi and no wheezes Cardiovascular: Rate/Rhythm: regular rate and regular rhythm Heart Sounds: + murmur (throughout 5/6, DEEP LUSB and holosytolic in apex) Gastrointestinal (Abdomen): normal bowel sounds, soft, nontender, no hepatosplenomegaly Musculoskeletal: no cyanosis or clubbing, extremities motor strength 5/5 Skin: Ecchymosis LUE Neurologic: moves all extremities and awake; no focal motor deficits and not confused Psychiatric: A+Ox3, euthymic affect Results & Data Results & Data Vital Signs (Past 12 Hours) Vital Signs Temp Pulse Resp BP Pulse Ox O2 Del Method O2 Flow Rate 12/20/22 16:30 147/66 H 95 Room Air 12/20/22 16:00 130/74 98 Room Air 12/20/22 15:21 137/90 99 Room Air 12/20/22 15:00 93 H 18 153/59 H 100 Nasal Cannula 2 12/20/22 14:30 83 22 160/116 H 96 Nasal Cannula 2 12/20/22 13:30 69 16 126/49 L 96 Room Air 12/20/22 13:00 82 22 118/51 L 96 Room Air 12/20/22 13:00 89 12/20/22 12:39 36.3 C L 76 18 122/51 L 95 Room Air Laboratory Results Abnormal lab results 12/20/22 12/20/22 12/20/22 Range/Units 13:01 13:01 13:01 RBC 2.27 L (4.20-5.40) M/uL Hgb 7.2 L (12.0-16.0) g/dl Hct 21.8 L (37.0-47.0) % RDW Std Deviation 53.7 H (36.4-46.3) fL RDW Coeff of Kris 15.5 H (11.5-14.5) % Reticulocyte % (Auto) 2.1 H (0.5-2.0) % Bailey # (Auto) 0.64 H (0.11-0.59) K/uL Sodium 131 L (136-145) mmol/L Chloride 88 L (98-107) mmol/L Carbon Dioxide 33 H (21-32) mmol/L BUN 43 H (6-23) mg/dl Creatinine 3.78 H (0.6-1.2) mg/dl Alkaline Phosphatase 111 H (34-104) U/L Troponin I High Sens 173.8 H* (0-14) pg/ml Globulin 2.3 L (2.5-4.0) gm/dl Lipase 85 H (11-82) U/L Crossmatch 12/20/22 12/20/22 Range/Units 15:34 16:23 RBC (4.20-5.40) M/uL Hgb (12.0-16.0) g/dl Hct (37.0-47.0) % RDW Std Deviation (36.4-46.3) fL RDW Coeff of Kris (11.5-14.5) % Reticulocyte % (Auto) (0.5-2.0) % Bailey # (Auto) (0.11-0.59) K/uL Sodium (136-145) mmol/L Chloride (98-107) mmol/L Carbon Dioxide (21-32) mmol/L BUN (6-23) mg/dl Creatinine (0.6-1.2) mg/dl Alkaline Phosphatase (34-104) U/L Troponin I High Sens 148.6 H* (0-14) pg/ml Globulin (2.5-4.0) gm/dl Lipase (11-82) U/L Crossmatch See Detail Diagnostic Findings HEAD CT NONCONTRAST CT DOSE: HISTORY: esrd, chest/neck pain, dizziness TECHNIQUE: Multiaxial CT images of the head were performed without the use of intravenous contrast. Automated exposure control was utilized for this study. A dose lowering technique was utilized adhering to the principles of ALARA. Comparison: Head CT 03/30/2021. Findings: The paranasal sinuses and mastoid air cells are clear. The calvarium and skull base are intact. There is no mass, hematoma, midline shift, acute infarct. White matter hypodensity is nonspecific but suggestive of microvascular ischemic change. The ventricles and sulci demonstrate mild age-related involutional changes. Impression: No significant change compared to the prior study. No acute intracranial abnormality. CT soft tissue neck wo con CT DOSE: CLINICAL HISTORY: esrd, chest/neck pain, dizziness TECHNIQUE: Multiaxial CT images of the neck were performed without contrast. Sagittal and coronal reformations were performed at the workstation by the radiologist. A dose lowering technique was utilized adhering to the principles of ALARA. COMPARISON STUDY: CTA neck 04/04/2013. FINDINGS: No fractures within the cervical spine. There is moderate to severe disc space narrowing at C3-C4 and C4-C5 with anterior endplate osteophytes. [id number] facet degenerative changes within the cervical spine. Prior bilateral lens replacement. Otherwise, the orbits are unremarkable. Prevertebral soft tissues and the epiglottis are normal in thickness. The major mucosal airways services appear intact. Normal thyroid gland. Mild calcified plaque within the bilateral carotid arteries. No pneumothorax. Emphysema. The paranasal sinuses and mastoid air cells are clear. The pterygopalatine fossa and paratracheal fat spaces are well-maintained. The parotid and submandibular glands appear symmetric. No mass, lymphadenopathy, or abscess identified within the neck. No radiopaque foreign bodies. IMPRESSION: No acute abnormality within the neck. Additional findings as described above. CT chest diagnostic wo con CT DOSE: 2407.38 mGy.cm HISTORY: Anterior chest pain. esrd, chest/neck pain, dizziness TECHNIQUE: Multiaxial CT images of the chest were performed without contrast. A dose lowering technique was utilized adhering to the principles of ALARA. COMPARISON: Chest CT 10/12/2022. FINDINGS: Mild bronchial wall thickening within the right lower lobe. This has improved. The remaining airways are patent. No pneumothorax. No pleural effusions. Mild emphysema again noted. A 4 mm nodular density within the base of the lingula on image 188. This was not present on the study performed 2 months earlier. Therefore, this likely represents an area of scarring or atelectasis. No suspicious pulmonary nodules identified. Groundglass densities within the base of the right lower lobe have almost completely resolved in the interval. This favors a resolving pneumonitis. No new focal lung consolidations identified. Left basilar linear densities consistent with subsegmental atelect asis. No acute fractures identified. Limited views of the upper abdomen demonstrate a normal liver and spleen. Prior cholecystectomy. Bilateral renal hypodense lesions favor cysts. The heart is mildly enlarged. Aortic and mitral annulus calcifications are noted. Hypodense blood pool consistent with underlying anemia. This remains unchanged. Moderate coronary artery calcifications, unchanged. No significant pericardial effusion. The main pulmonary artery is dilated up to 3.8 cm. This remains unchanged and is consistent with pulmonary arterial hypertension. Calcified plaque within the normal caliber thoracic aorta. Normal caliber esophagus. No mediastinal or hilar lymphadenopathy. IMPRESSION: 1. No acute process within the chest. 2. Near-complete resolution of the right lower lobe airspace opacities within the few small groundglass densities remaining. 3. No new focal lung consolidations to suggest a pneumonia. 4. Mild bronchial wall thickening within the right lower lobe which has imp roved. 5. Emphysema. 6. Pulmonary arterial hypertension, unchanged. 7. Additional findings as described above. XR chest 1V portable HISTORY: dizziness COMPARISON: Chest 10/16/2022. FINDINGS: No pneumothorax. No pleural effusions. No focal lung consolidations to suggest a pneumonia. No evidence for pulmonary edema. The cardiac silhouette remains mildly enlarged. There is mild interstitial thickening and a few small linear densities at the left lung base. This is likely chronic. There are calcifications within the aortic knob. IMPRESSION: No acute process. Medications Administered ER Medications Given: NSS 500 ml bolus Duoneb 3ml NUB Famotidine 20mg IV Acetaminophen 1000mg IV 1 units packed RBC Pantoprazole 80mg IV bolus and drip ECG Rate (beats per minute): 91 Rhythm: normal sinus Findings: + other (T wave flattening in lateral leads) and + 1st degree AV block Comparison ECG Date: from (November 24, 2022) Change: no significant change Code Status & VTE Plan Code Status DNR/DNI per patient wishes VTE Prophylaxis Plan VTE Prophylaxis will be ordered: No PG Care Time/CCT Total # of Minutes Spent Total Time Spent with Patient: Total time spent is greater than 50% in coordination of care (as documented) at patient's floor/unit and/or counseling patient: Coding Level of Care Code 25379 INT INP/OBS CARE 3/75MIN Diagnoses Neck pain M54.2 Symptomatic anemia D64.9 ESRD on hemodialysis N18.6; Z99.2 Elevated troponin R77.8 Aortic stenosis I35.0 Current every day smoker F17.200 Anxiety F41.9 Hypothyroidism E03.9 Chronic obstructive pulmonary disease J44.9
[2022-12-20] MEDS ORDERED: diazePAM 2 MG TABLET PO STA (17:25)
[2022-12-20] MEDS ORDERED: diazePAM 5 MG/ML 10ML VIAL IV STA (20:14)
[2022-12-20] MEDS ORDERED: diazePAM 5 MG TABLET PO STA (20:36)
[2022-12-20] MEDS: PANTOprazole 40 MG in SYRINGE 0 ML IV SCH (22:32)
[2022-12-20] MEDS: carvediloL 3.125 MG TAB PO SCH (22:32)
[2022-12-20] MEDS: ATORVASTATIN 40 MG TAB PO SCH (22:32)
[2022-12-20] MEDS: TORSEMIDE 20 MG TAB PO SCH (22:33)
[2022-12-20] MEDS: traZODone HCL 50 MG TAB PO SCH (22:34)
[2022-12-21] MEDS: NICOTINE 21 MG/24 HR TDSY TD SCH ×2 (02:07→08:50)
[2022-12-21] MEDS ORDERED: COUGH DROP (SUGAR FREE) LOZ 24 LOZ/1 BOX BUCCAL PRN (04:30)
[2022-12-21] MEDS ORDERED: COUGH DROP (SUGAR FREE) LOZ 24 LOZ/1 BOX BUCCAL ONE (04:33)
[2022-12-21] MEDS: LEVOTHYROXINE SODIUM 25 MCG TABLET PO SCH (05:36)
[2022-12-21 07:27] LABS: Anion Gap 10 (3-11); BUN Creatinine Ratio 11.9 (10-20); Blood Urea Nitrogen 54 mg/dl (6-23); Calcium 9.1 mg/dl (8.6-10.3); Carbon Dioxide 29 mmol/L (21-32); Chloride 91 mmol/L (98-107); Est GFR (African American) 10.2 ml/min; Est GFR (Non-African American) 8.8 ml/min; Glucose 89 mg/dl (70-99(Fasting)); Sodium 130 mmol/L (136-145)
[2022-12-21] MEDS: amLODIPine BESYLATE 5 MG TAB PO SCH (08:23)
[2022-12-21] MEDS: SEVELAMER HCL 800 MG TABLET PO SCH ×3 (08:23→17:09)
[2022-12-21] MEDS: carvediloL 3.125 MG TAB PO SCH ×2 (08:23→20:57)
[2022-12-21] MEDS: ISOSORBIDE MONO EXTENDED REL 30 MG TABCR PO SCH (08:23)
[2022-12-21] MEDS: TORSEMIDE 20 MG TAB PO SCH ×2 (08:23→20:56)
[2022-12-21] MEDS: PANTOprazole 40 MG in SYRINGE 0 ML IV SCH (08:23)
[2022-12-21] MEDS: NEPHROCAPS PO SCH (08:23)
[2022-12-21] MEDS ORDERED: diazePAM 5 MG TABLET PO ONE ×2 (08:47→20:38)
[2022-12-21] MEDS ORDERED: SERTRALINE HCL 50 MG TABLET PO SCH (09:00)
[2022-12-21 09:17] LABS: Basophils # (auto) 0.05 K/uL (0-0.2); Basophils % (auto) 0.6 %; Eosinophils # (auto) 0.13 K/uL (0-0.50); Eosinophils % (auto) 1.4 %; Hematocrit (blood only) 24.7 % (37.0-47.0); Hemoglobin 8.4 g/dl (12.0-16.0); Immature Granulocytes # (auto) 0.03 K/uL (0.01-0.20); Immature Granulocytes % (auto) 0.3 %; Lymphocytes # (auto) 1.36 K/uL (1.2-3.4); Mean Corpuscular Hemoglobin 31.5 pg (25.0-34.0); Mean Corpuscular Volume 92.5 fL (80.0-100.0); Mean Platelet Volume 9.7 fL (9.4-12.4); Monocytes # (auto) 0.74 K/uL (0.11-0.59); Monocytes % (auto) 8.2 %; Neutrophils # (auto) 6.75 K/uL (1.40-6.50); Neutrophils % (auto) 74.5 %; Platelet Count 187 K/uL (130-400); RDW Coefficient of Variation 16.1 % (11.5-14.5); RDW Standard Deviation 54.4 fL (36.4-46.3); Red Blood Count 2.67 M/uL (4.20-5.40); White Blood Count 9.06 K/ul (4.8-10.8)
[2022-12-21 09:29] LABS: Potassium 4.8 mmol/L (3.5-5.1)
[2022-12-21 09:38] LABS: Troponin I High Sensitivity 772.9 pg/ml (0-14)
--- NOTE | 2022-12-21 10:33 | Nephrology Consultation ---
Date of Consultation December 21, 2022 Assessment & Plan (1) ESRD on hemodialysis: (2) Symptomatic anemia: (3) Neck pain: (4) COPD (chronic obstructive pulmonary disease): (5) Hypertension: (6) Hyperlipidemia: Plan ESRD on hemodialysis via left brachiocephalic AV fistula on TTS at [facility]. Admitted with anterior knee pain, generalized weakness and symptomatic anemia, status post 1 unit of PRBC and negative imaging of chest and neck. Blood pressure, volume status, electrolyte acceptable. -- Discussed with Dr. Love, plan for fistulogram tomorrow morning and then dialysis in the afternoon -- there is some component of COPD exacerbation, nebulizer q6h, consider steroid -- iron study, Epogen 40000 units with dialysis tomorrow -- continue Renvela and Nephrocaps -- should avoid all medications for GFR less than 10, okay to increase trazodone to 50 mg daily Thank you for allowing me to participate in your patient's care. It was a pleasure to see Toña History of Present Illness Reason for Consultation: ESKD on hemodialysis Attending Physician: Jn Wagner, History of Present Illness Ms. Toña Chapin is a pleasant 77-year-old F with PMH of ESRD on IHD TTS, COPD, GERD, GI bleeding, hypertension, hyperlipidemia, hypothyroidism, anxiety admitted yesterday with generalized weakness, lightheadedness and anterior neck pain. Nephrology consult was requested for management of hemodialysis while inpatient. EMR records reviewed in detail during patient's visit. Toña presented to ER yesterday accompanied by her daughter for evaluation for ongoing generalized weakness, lightheadedness and anterior neck pain which has been worsening for last few days. On admission her vital signs are stable. CT scan of chest and neck was otherwise unremarkable. Electrolytes are acceptable however her sick hemoglobin dropped to 7.2 and she received 1 unit of blood tr ansfusion on admission. 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 Has been getting dialysis on TTS at [facility] on dialysis unit. She has been having issues with her AV fistula and she was waiting for a fistulogram as an outpatient. She reports she had only less than 2 hours dialysis over last 2 dialysis treatment because of issues with fistula with infiltration and low blood flow. Past medical history also significant for COPD with long history of smoking, peripheral vascular disease with revascularization, renovascular disease s/p renal artery stent, hypertension, anemia, secondary hyperparathyroidism, hyperlipidemia, hypothyroidism, av fistula malfunction, aortic stenosis. This morning she continues to complain of neck pain, has been complaining of difficulty breathing. Allergies Allergy/AdvReac Type Severity Reaction Status Date / Time codeine Allergy Intermediate RASH, Verified 12/20/22 15:06 RAPID HEART BEAT sulfamethoxazole AdvReac Severe ELEVATED Verified 12/20/22 15:07 POTASSIUM, BRADYCARDIC "HEART TRIED TO SHUT DOWN" trimethoprim AdvReac Severe ELEVATED Verified 12/20/22 15:07 POTASSIUM, BRADYCARDIC "HEART TRIED TO SHUT DOWN" gabapentin AdvReac Intermediate HALLUCINATIONS; Verified 12/20/22 15:07 SCREAMING/YELLING hydromorphone [From Dilaudid] AdvReac Intermediate Hallucinati Verified 12/20/22 15:06 ng morphine AdvReac Unknown unsure Verified 12/20/22 15:06 "might be okay to take" oxycodone [From Percocet] AdvReac Unknown unsure Verified 12/20/22 15:06 "might be okay to take" Home Medications Medication Instructions Recorded Confirmed Type atorvastatin 40 mg tablet 40 mg PO QPM 09/16/18 12/20/22 History multivitamin 1 tab PO DAILY 12/10/20 12/20/22 History pantoprazole 40 mg tablet,delayed 40 mg PO BID #60 tabs 04/01/21 12/20/22 Rx release albuterol sulfate 90 mcg/actuation 2 puff inhalation UD PRN Shortness 04/06/21 12/20/22 History aerosol inhaler Of Breath Or Wheezing levothyroxine 25 mcg tablet 25 mcg PO QAM #90 tabs 09/25/22 12/20/22 Rx isosorbide mononitrate 30 mg 30 mg PO QAM #30 tabs 10/20/22 12/20/22 Rx tablet,extended release 24 hr cyanocobalamin (vitamin B-12) 100 100 mcg PO DAILY #30 tabs 11/23/22 12/20/22 Rx mcg tablet (Vitamin B-12) nitroglycerin 0.4 mg sublingual 0.4 mg sublingual DIRECTED PRN 11/23/22 12/20/22 Rx tablet Chest Pain #10 tabs trazodone 50 mg tablet 25 mg PO DAILY #30 tabs 11/25/22 12/20/22 Rx carvedilol 3.125 mg tablet 3.125 mg PO BID 12/09/22 12/20/22 History amlodipine 5 mg tablet 2.5 mg PO DAILY #60 tabs 12/16/22 12/20/22 Rx sertraline 25 mg tablet (Zoloft) 25 mg PO DAILY #30 tabs 12/16/22 12/20/22 Rx vitamin B complex-vitamin C-folic 1 tab PO DAILY #30 tabs 12/16/22 12/20/22 Rx acid 0.8 mg tablet (Renal-Carissa) sevelamer carbonate 800 mg tablet 800 mg PO TIDM 12/20/22 12/20/22 History torsemide 20 mg tablet 80 mg PO BID 12/20/22 12/20/22 History Patient History Medical History Anemia due to GI blood loss AV fistula AVM (arteriovenous malformation) AVM (arteriovenous malformation) of small bowel, 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, acquired with hemorrhage Bereavement due to life event Blood in stool Cardiac murmur Carotid stenosis, left Chronic back pain Chronic obstructive pulmonary disease Chronic obstructive pulmonary disease CKD (chronic kidney disease) stage 4, GFR 15-29 ml/min Constipation DVT prophylaxis Encounter for pre-operative examination ESRD on hemodialysis GERD (gastroesophageal reflux disease) GI bleed Hemorrhagic gastritis Hx of gout Hyperlipidemia Hypertension Hypothyroidism Melena Mesenteric artery stenosis Peripheral arterial disease Pulmonary edema Renal artery stenosis Symptomatic anemia Tobacco use disorder Tobacco use disorder Surgical History History of bilateral cataract extraction History of carotid endarterectomy (12/10/20) History of carpal tunnel release of both wrists History of cholecystectomy History of colonoscopy History of colonoscopy with polypectomy History of esophagogastroduodenoscopy (EGD) History of laminectomy History of repair of right rotator cuff History of tooth extraction Family History Mother Family history of diabetes mellitus Brother Family history of diabetes mellitus Sister Family history of diabetes mellitus Other No family history of adverse response to anesthesia Social History Smoking Status: Current every day smoker Tobacco Type: Cigarettes Age Started Using Tobacco: 20; Cigarettes Per Day: 10; Second Hand Exposure: Yes; Do You Dip or Chew Tobacco: No; Tobacco Cessation Education Requested by Patient: No Hx Alcohol Use: Yes Alcohol type: wine Hx Substance Use: No Preferred Language: Kiswahili Communication Ability: Effective Implementation Advisor Required: No Beliefs That Will Affect Care: None marital status: Current Living Situation: Alone Current Living Situation Comment: Apartment current occupational status: 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 Physical Exam Constitutional: WD/WN, vitals as above + acute distress and + ill appearing Eyes: + anicteric sclerae Neck: normal visual inspection Respiratory: + respiratory distress Auscultation: + diminished lung sounds and + wheezes Cardiovascular: Rate/Rhythm: regular rate and regular rhythm Heart Sounds: normal S1, normal S2 and + murmur Extremities: no edema Gastrointestinal (Abdomen): Inspection/Auscultation: abdomen normal to inspection Percussion/Palpation: abdomen soft; abdomen nontender Musculoskeletal: Extremities: extremities normal to inspection Skin: no rashes, warm and dry Neurologic: no focal motor deficits Psychiatric: Orientation: alert and oriented x 3 Affect: + anxious affect Mood: + depressed mood Results & Data Vital Signs (Past 12 Hours) Vital Signs Temp Pulse Resp BP Pulse Ox O2 Del Method O2 Flow Rate 12/21/22 10:14 Oxymask 3 12/21/22 10:12 74 127/66 100 Oxymask 2 12/21/22 09:15 Nasal Cannula, Oxymask 3 12/21/22 06:07 36.5 C 74 18 135/68 97 Oxymask 3 12/21/22 04:51 95 Oxymask 3 12/20/22 23:03 93 Oxymask 3 PG Care Time/CCT Total # of Minutes Spent Total Time Spent with Patient: Total time spent is greater than 50% in coordination of care (as documented) at patient's floor/unit and/or counseling patient: Coding Level of Care Code 66222 INT INP/OBS CARE MIN Diagnoses ESRD on hemodialysis N18.6; Z99.2 Symptomatic anemia D64.9 Neck pain M54.2 COPD (chronic obstructive pulmonary disease) J44.9 Hypertension I10 Hypertension type: unspecified Hyperlipidemia E78.5 (5) Hypertension Hypertension type: unspecified Qualified Code(s): I10 - Essential (primary) hypertension
--- NOTE | 2022-12-21 10:44 | Communication Note ---
Date of Service: December 21, 2022 Patient moved to [facility] for elevated troponin. Will need cardiology clearance prior to fistulogram. Will keep on schedule for tomorrow if cleared.
--- NOTE | 2022-12-21 12:37 | Cardiology Consultation ---
Date of Consultation December 21, 2022 Assessment & Plan (1) Aortic stenosis: (2) Elevated troponin: (3) Symptomatic anemia: (4) Current every day smoker: (5) Hyperlipidemia: (6) Hypertension: (7) Coronary artery calcification: Plan ASSESSMENT/PLAN: 1. Aortic stenosis: Appears moderate on current echo but poor image quality and could be underestimated. Likely in the moderate to severe range when taking into account most recent Geissinger echo as well. Continue to follow as an outpatient. No urgent indication for valve replacement. 2. Elevated troponin: She did not present with acute coronary syndrome. Likely due to demand ischemia in the setting of significant anemia and likely underlying coronary artery disease. No obvious angina. No indication for urgent cardiac catheterization. Has wall motion abnormalities on echo but also noted on Geissinger echo from October 2022. Continue to trend troponins until peaked. Could consider nonurgent ischemic evaluation as an outpatient. Currently concern for GI bleeding and significant anemia. Not a good candidate for PCI given need for antiplatelet therapy but recurrent issues with GI bleeding and PRBC requirements. 3. Cardiomyopathy: Mildly reduced LV systolic function with wall motion abnormalities. Likely has underlying CAD, especially given known PAD. No antiplatelet therapy due to recurrent GI bleeding. Continue carvedilol and if not having issues with hypotension following hemodialysis, beta-mona can be titrated. No NIKKY inhibitor given ESRD. She does not qualify for ICD for primary prevention. 4. Anemia: As per primary service. Has history of GI bleeding and has undergone clipping of small bowel AVMs in the past. Has received PRBC during this hospital stay. 5. Tobacco abuse: Recommended that she stop smoking. 6. Dyslipidemia: Continue high intensity statin therapy. 7. Coronary artery calcifications: Likely has CAD and could have obstructive CAD, especially given wall motion abnormalities. Recommend medical therapy for now given concern for GI bleeding and PRBC requirement. Unless she develops significant angina, ischemic evaluation can be done electively in the future. Poor PCI candidate given recurrent GI bleeding. 8. Disposition: Plan of care communicated with primary hospitalist, Dr. Wagner. On discharge, she should follow-up with Dr. Huertas, her primary police dispatcher. Please call with further questions or concerns. History of Present Illness Reason for Consultation: Aortic stenosis Requesting Physician: Dr. Lema Attending Physician: Jn Wagner DO History of Present Illness Ms. Chapin is a 77-year-old female with a history significant for aortic stenosis, ESRD on hemodialysis (T,H,Sat), carotid artery stenosis s/p carotid endarterectomy, PAD (celiac artery, SMA, bilateral femoral arteries), COPD, tobacco use, anemia, duodenal and jejunal AVMs s/p clips. Her primary police dispatcher is Dr. Huertas. She was admitted on 12/20/2022 after presenting with significant weakness upon completion of hemodialysis. She also developed a neck/throat discomfort which has been constant since then but has improved. This throat discomfort has been nonexertional. She denies chest pain, shortness of breath, syncope, near s yncope, palpitations. She has had black stool. Possibly bright red blood per rectum. She recalls having [place] the [place] [facility] She was concerned that she was anemic and was found on presentation to have a hemoglobin of 7.2. She received PRBC and hemoglobin increased to 8.4. She states that she has had multiple PRBC transfusions in the past. She also has developed significant ecchymosis in her left upper extremity after venous access of her left arm at dialysis. She also noticed a lump in her left upper extremity for which fistulogram was recommended by nephrology. She had an echo done on 11/02/2022 through the [facility] system which reported mildly reduced LV systolic function and apical wall motion abnormality. Aortic stenosis at that time was felt to be moderate to severe. At the time of today's visit, she was feeling much better but wanted to take a nap. She admits that she is able to care for herself and her apartment. When she goes outside she uses a walker and walks in the hallway, to get mail, and sometimes outside for exercise purposes. She denies exertional chest pain or shortness of breath when at home and states that as long as her hemoglobin is around 10 or more, she feels much better. Review of systems: As above. Review of systems otherwise negative/unremarkable. Family history: No known premature CAD. Social history: She smokes approximately a pack per day. She denies alcohol or drug abuse. She lives alone. She has 4 children however 1 . She lives in [place]. She was unaccompanied. Allergies Allergy/AdvReac Type Severity Reaction Status Date / Time codeine Allergy Intermediate RASH, Verified 12/20/22 15:06 RAPID HEART BEAT sulfamethoxazole AdvReac Severe ELEVATED Verified 12/20/22 15:07 POTASSIUM, BRADYCARDIC "HEART TRIED TO SHUT DOWN" trimethoprim AdvReac Severe ELEVATED Verified 12/20/22 15:07 POTASSIUM, BRADYCARDIC "HEART TRIED TO SHUT DOWN" gabapentin AdvReac Intermediate HALLUCINATIONS; Verified 12/20/22 15:07 SCREAMING/YELLING hydromorphone [From Dilaudid] AdvReac Intermediate Hallucinati Verified 12/20/22 15:06 ng morphine AdvReac Unknown unsure Verified 12/20/22 15:06 "might be okay to take" oxycodone [From Percocet] AdvReac Unknown unsure Verified 12/20/22 15:06 "might be okay to take" Home Medications Medication Instructions Recorded Confirmed Type atorvastatin 40 mg tablet 40 mg PO QPM 09/16/18 12/20/22 History multivitamin 1 tab PO DAILY 12/10/20 12/20/22 History pantoprazole 40 mg tablet,delayed 40 mg PO BID #60 tabs 04/01/21 12/20/22 Rx release albuterol sulfate 90 mcg/actuation 2 puff inhalation UD PRN Shortness 04/06/21 12/20/22 History aerosol inhaler Of Breath Or Wheezing levothyroxine 25 mcg tablet 25 mcg PO QAM #90 tabs 09/25/22 12/20/22 Rx isosorbide mononitrate 30 mg 30 mg PO QAM #30 tabs 10/20/22 12/20/22 Rx tablet,extended release 24 hr cyanocobalamin (vitamin B-12) 100 100 mcg PO DAILY #30 tabs 11/23/22 12/20/22 Rx mcg tablet (Vitamin B-12) nitroglycerin 0.4 mg sublingual 0.4 mg sublingual DIRECTED PRN 11/23/22 12/20/22 Rx tablet Chest Pain #10 tabs trazodone 50 mg tablet 25 mg PO DAILY #30 tabs 11/25/22 12/20/22 Rx carvedilol 3.125 mg tablet 3.125 mg PO BID 12/09/22 12/20/22 History amlodipine 5 mg tablet 2.5 mg PO DAILY #60 tabs 07/26/23 07/30/23 Rx sertraline 25 mg tablet (Zoloft) 25 mg PO DAILY #30 tabs 12/16/22 12/20/22 Rx vitamin B complex-vitamin C-folic 1 tab PO DAILY #30 tabs 12/16/22 12/20/22 Rx acid 0.8 mg tablet (Renal-Carissa) sevelamer carbonate 800 mg tablet 800 mg PO TIDM 12/20/22 12/20/22 History torsemide 20 mg tablet 80 mg PO BID 12/20/22 12/20/22 History Patient History Medical History Anemia due to GI blood loss AV fistula left arm AVM (arteriovenous malformation) AVM (arteriovenous malformation) of small bowel, 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, acquired with hemorrhage Bereavement due to life event Blood in stool resolved Cardiac murmur Carotid stenosis, left Left carotid endarterectomy 11/2020 [facility] with [address] Love Chronic back pain Chronic obstructive pulmonary disease inhaler/nebulizer prn Chronic obstructive pulmonary disease CKD (chronic kidney disease) stage 4, GFR 15-29 ml/min Constipation DVT prophylaxis Encounter for pre-operative examination ESRD on hemodialysis GERD (gastroesophageal reflux disease) GI bleed Hemorrhagic gastritis Hx of gout Hyperlipidemia Hypertension Hypothyroidism Melena Mesenteric artery stenosis Peripheral arterial disease Pulmonary edema Renal artery stenosis Symptomatic anemia Tobacco use disorder Tobacco use disorder Surgical History History of bilateral cataract extraction History of carotid endarterectomy (12/10/20) History of carpal tunnel release of both wrists History of cholecystectomy History of colonoscopy History of colonoscopy with polypectomy History of esophagogastroduodenoscopy (EGD) History of laminectomy History of repair of right rotator cuff History of tooth extraction Family History Mother Family history of diabetes mellitus Brother Family history of diabetes mellitus Sister Family history of diabetes mellitus Other No family history of adverse response to anesthesia Social History Smoking Status: Current every day smoker Tobacco Type: Cigarettes Age Started Using Tobacco: 20; Cigarettes Per Day: 10; Second Hand Exposure: Yes; Do You Dip or Chew Tobacco: No; Tobacco Cessation Education Requested by Patient: No Hx Alcohol Use: Yes Alcohol type: wine Hx Substance Use: No Preferred Language: Slovenian Communication Ability: Effective [employer] Stripper Etcher Required: No Beliefs That Will Affect Care: None marital status: Current Living Situation: Alone Current Living Situation Comment: Apartment current occupational status: 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 Alert. HEENT: Anicteric sclera. Neck: No appreciable JVD. Bilateral bruits vs radiation of cardiac murmur. Normal carotid upstrokes bilaterally. Cardiac: PMI was nonpalpable. No ventricular heave. Regular. Normal S1-S2. 2/6 mid-late peaking systolic ejection murmur heard best at right upper sternal border. No rubs or gallops. Pulmonary: Decreased breath sounds bilaterally. Bilateral wheezing noted. Abdomen: Soft, nontender, nondistended, with normoactive bowel sounds. No bruits noted. Extremities: 2+ right radial pulse. Left upper extremity AV fistula with palpable thrill and audible bruit. 2+ posterior tibialis pulses bilaterally. No significant pitting edema. No cyanosis. Nodular firmness along the left bicep. Large ecchymosis with fullness involving the left upper extremity. Results & Data Vital Signs (Past 12 Hours) Vital Signs Temp Pulse Resp BP Pulse Ox O2 Del Method O2 Flow Rate 12/21/22 11:48 36.7 C 67 18 130/65 98 Oxymask 2 12/21/22 10:14 Oxymask 3 12/21/22 10:12 74 127/66 100 Oxymask 2 12/21/22 09:15 Nasal Cannula, Oxymask 3 12/21/22 06:07 36.5 C 74 18 135/68 97 Oxymask 3 12/21/22 04:51 95 Oxymask 3 Laboratory Results Laboratory Results - last 24 hr 12/20/22 12/20/22 12/20/22 13:01 13:01 13:01 WBC 6.48 RBC 2.27 L Hgb 7.2 L Hct 21.8 L MCV 96.0 MCH 31.7 MCHC 33.0 RDW Std Deviation 53.7 H RDW Coeff of Kris 15.5 H Plt Count 189 MPV 9.9 Immature Gran % (Auto) 0.2 Neut % (Auto) 63.8 Lymph % (Auto) 24.4 [place] % (Auto) 9.9 Eos % (Auto) 1.2 Baso % (Auto) 0.5 Reticulocyte % (Auto) Neut # (Auto) 4.14 Lymph # (Auto) 1.58 [place] # (Auto) 0.64 H Eos # (Auto) 0.08 Baso # (Auto) 0.03 Reticulocyte # Immature Gran # (Auto) 0.01 Absolute Nucleated RBC Nucleated RBC % (auto) Neutrophils % (Manual) Band Neutrophils % Lymphocytes % (Manual) Prolymphocyte % Reactive Lymphs % (Man) Monocytes % (Manual) Eosinophils % (Manual) Basophils % (Manual) Metamyelocytes % (Man) Myelocytes % (Man) Promyelocytes % (Man) Blast Cells % (Manual) Plasma Cell % (Manual) Other Cells % Nucleated RBC % Neutrophils # (Manual) Band Neutrophils # Total Absolute Neuts Lymphocytes # (Manual) Prolymphocyte # Reactive Lymphs # Total Abs Lymphocytes Monocytes # (Manual) Eosinophils # (Manual) Basophils # (Manual) Metamyelocytes # (Man) Myelocytes # (Manual) Promyelocytes # (Man) Blast Cells # (Man) Plasma Cell # (Manual) Other Cells # Nucleated RBCs # (Man) Hypersegmented Neuts Hyposegmented Neuts Hypogranular Neuts Large Granular Lymphs # Lrg Granular Lymphs Hairy Cells Smudge Cells Toxic Granulation Toxic Vacuolation Dohle Bodies Gregory Rods Platelet Estimate Hypogranular Platelets Giant Platelets Platelet Satelliting RBC Morphology Unremarkable Polychromasia Hypochromasia Poikilocytosis Basophilic Stippling Anisocytosis Microcytosis Macrocytosis Spherocytes Pappenheimer Bodies Sickle Cells Target Cells Tear Drop Cells Ovalocytes Stomatocytes [place] Bodies Echinocytes Acanthocytes (Spur) Rouleaux RBC Agglutinates Schistocytes Sezary Cell Sodium 131 L Potassium 4.5 Chloride 88 L Carbon Dioxide 33 H Anion Gap 10 BUN 43 H Creatinine 3.78 H Est Cr Clr Drug Dosing Not Reportable Est GFR ( Amer) 12.6 Est GFR (Non-Af Amer) 10.9 BUN/Creatinine Ratio 11.4 Glucose 98 Calcium 9.4 Phosphorus 3.5 Magnesium 2.0 Iron Unsaturated IBC Transferrin Ferritin Total Bilirubin 0.6 AST 20 ALT 10 Alkaline Phosphatase 111 H Troponin I High Sens 173.8 H* Total Protein 6.1 Albumin 3.8 Globulin 2.3 L Albumin/Globulin Ratio 1.7 Lipase 85 H TSH 2.638 Nasal Screen MRSA (PCR) SARS-CoV-2, RNA, NAAT Blood Parasites ID Blood Type Antibody Screen Crossmatch 12/20/22 12/20/22 12/20/22 13:01 15:34 16:12 WBC RBC Hgb Hct MCV MCH MCHC RDW Std Deviation RDW Coeff of Kris Plt Count MPV Immature Gran % (Auto) Neut % (Auto) Lymph % (Auto) [place] % (Auto) Eos % (Auto) Baso % (Auto) Reticulocyte % (Auto) 2.1 H Neut # (Auto) Lymph # (Auto) [place] # (Auto) Eos # (Auto) Baso # (Auto) Reticulocyte # 0.05 Immature Gran # (Auto) Absolute Nucleated RBC Nucleated RBC % (auto) Neutrophils % (Manual) Band Neutrophils % Lymphocytes % (Manual) Prolymphocyte % Reactive Lymphs % (Man) Monocytes % (Manual) Eosinophils % (Manual) Basophils % (Manual) Metamyelocytes % (Man) Myelocytes % (Man) Promyelocytes % (Man) Blast Cells % (Manual) Plasma Cell % (Manual) Other Cells % Nucleated RBC % Neutrophils # (Manual) Band Neutrophils # Total Absolute Neuts Lymphocytes # (Manual) Prolymphocyte # Reactive Lymphs # Total Abs Lymphocytes Monocytes # (Manual) Eosinophils # (Manual) Basophils # (Manual) Metamyelocytes # (Man) Myelocytes # (Manual) Promyelocytes # (Man) Blast Cells # (Man) Plasma Cell # (Manual) Other Cells # Nucleated RBCs # (Man) Hypersegmented Neuts Hyposegmented Neuts Hypogranular Neuts Large Granular Lymphs # Lrg Granular Lymphs Hairy Cells Smudge Cells Toxic Granulation Toxic Vacuolation Dohle Bodies Gregory Rods Platelet Estimate Hypogranular Platelets Giant Platelets Platelet Satelliting RBC Morphology Polychromasia Hypochromasia Poikilocytosis Basophilic Stippling Anisocytosis Microcytosis Macrocytosis Spherocytes Pappenheimer Bodies Sickle Cells Target Cells Tear Drop Cells Ovalocytes Stomatocytes [place] Bodies Echinocytes Acanthocytes (Spur) Rouleaux RBC Agglutinates Schistocytes Sezary Cell Sodium Potassium Chloride Carbon Dioxide Anion Gap BUN Creatinine Est Cr Clr Drug Dosing Est GFR ( Amer) Est GFR (Non-Af Amer) BUN/Creatinine Ratio Glucose Calcium Phosphorus Magnesium Iron 59 Unsaturated IBC 248 Transferrin 228 Ferritin 302.7 Total Bilirubin AST ALT Alkaline Phosphatase Troponin I High Sens 148.6 H* Total Protein Albumin Globulin Albumin/Globulin Ratio Lipase TSH Nasal Screen MRSA (PCR) SARS-CoV-2, RNA, NAAT NEGATIVE Blood Parasites ID Blood Type Antibody Screen Crossmatch 12/20/22 12/20/22 12/21/22 16:23 23:00 06:44 WBC Cancelled RBC Cancelled Hgb Cancelled Hct Cancelled MCV Cancelled MCH Cancelled MCHC Cancelled RDW Std Deviation Cancelled RDW Coeff of Kris Cancelled Plt Count Cancelled MPV Cancelled Immature Gran % (Auto) Cancelled Neut % (Auto) Cancelled Lymph % (Auto) Cancelled [place] % (Auto) Cancelled Eos % (Auto) Cancelled Baso % (Auto) Cancelled Reticulocyte % (Auto) Neut # (Auto) Cancelled Lymph # (Auto) Cancelled [place] # (Auto) Cancelled Eos # (Auto) Cancelled Baso # (Auto) Cancelled Reticulocyte # Immature Gran # (Auto) Cancelled Absolute Nucleated RBC Cancelled Nucleated RBC % (auto) Cancelled Neutrophils % (Manual) Cancelled Band Neutrophils % Cancelled Lymphocytes % (Manual) Cancelled Prolymphocyte % Cancelled Reactive Lymphs % (Man) Cancelled Monocytes % (Manual) Cancelled Eosinophils % (Manual) Cancelled Basophils % (Manual) Cancelled Metamyelocytes % (Man) Cancelled Myelocytes % (Man) Cancelled Promyelocytes % (Man) Cancelled Blast Cells % (Manual) Cancelled Plasma Cell % (Manual) Cancelled Other Cells % Cancelled Nucleated RBC % Cancelled Neutrophils # (Manual) Cancelled Band Neutrophils # Cancelled Total Absolute Neuts Cancelled Lymphocytes # (Manual) Cancelled Prolymphocyte # Cancelled Reactive Lymphs # Cancelled Total Abs Lymphocytes Cancelled Monocytes # (Manual) Cancelled Eosinophils # (Manual) Cancelled Basophils # (Manual) Cancelled Metamyelocytes # (Man) Cancelled Myelocytes # (Manual) Cancelled Promyelocytes # (Man) Cancelled Blast Cells # (Man) Cancelled Plasma Cell # (Manual) Cancelled Other Cells # Cancelled Nucleated RBCs # (Man) Cancelled Hypersegmented Neuts Cancelled Hyposegmented Neuts Cancelled Hypogranular Neuts Cancelled Large Granular Lymphs Cancelled # Lrg Granular Lymphs Cancelled Hairy Cells Cancelled Smudge Cells Cancelled Toxic Granulation Cancelled Toxic Vacuolation Cancelled Dohle Bodies Cancelled Gregory Rods Cancelled Platelet Estimate Cancelled Hypogranular Platelets Cancelled Giant Platelets Cancelled Platelet Satelliting Cancelled RBC Morphology Cancelled Polychromasia Cancelled Hypochromasia Cancelled Poikilocytosis Cancelled Basophilic Stippling Cancelled Anisocytosis Cancelled Microcytosis Cancelled Macrocytosis Cancelled Spherocytes Cancelled Pappenheimer Bodies Cancelled Sickle Cells Cancelled Target Cells Cancelled Tear Drop Cells Cancelled Ovalocytes Cancelled Stomatocytes Cancelled [place] Bodies Cancelled Echinocytes Cancelled Acanthocytes (Spur) Cancelled Rouleaux Cancelled RBC Agglutinates Cancelled Schistocytes Cancelled Sezary Cell Cancelled Sodium Potassium Chloride Carbon Dioxide Anion Gap BUN Creatinine Est Cr Clr Drug Dosing Est GFR ( Amer) Est GFR (Non-Af Amer) BUN/Creatinine Ratio Glucose Calcium Phosphorus Magnesium Iron Unsaturated IBC Transferrin Ferritin Total Bilirubin AST ALT Alkaline Phosphatase Troponin I High Sens Total Protein Albumin Globulin Albumin/Globulin Ratio Lipase TSH Nasal Screen MRSA (PCR) Negative SARS-CoV-2, RNA, NAAT Blood Parasites ID Cancelled Blood Type O Positive Antibody Screen NEGATIVE Crossmatch See Detail 12/21/22 12/21/22 12/21/22 06:44 08:49 08:49 WBC 9.06 RBC 2.67 L Hgb 8.4 L Hct 24.7 L MCV 92.5 MCH 31.5 MCHC 34.0 RDW Std Deviation 54.4 H RDW Coeff of Kris 16.1 H Plt Count 187 MPV 9.7 Immature Gran % (Auto) 0.3 Neut % (Auto) 74.5 Lymph % (Auto) 15.0 [place] % (Auto) 8.2 Eos % (Auto) 1.4 Baso % (Auto) 0.6 Reticulocyte % (Auto) Neut # (Auto) 6.75 H Lymph # (Auto) 1.36 [place] # (Auto) 0.74 H Eos # (Auto) 0.13 Baso # (Auto) 0.05 Reticulocyte # Immature Gran # (Auto) 0.03 Absolute Nucleated RBC Nucleated RBC % (auto) Neutrophils % (Manual) Band Neutrophils % Lymphocytes % (Manual) Prolymphocyte % Reactive Lymphs % (Man) Monocytes % (Manual) Eosinophils % (Manual) Basophils % (Manual) Metamyelocytes % (Man) Myelocytes % (Man) Promyelocytes % (Man) Blast Cells % (Manual) Plasma Cell % (Manual) Other Cells % Nucleated RBC % Neutrophils # (Manual) Band Neutrophils # Total Absolute Neuts Lymphocytes # (Manual) Prolymphocyte # Reactive Lymphs # Total Abs Lymphocytes Monocytes # (Manual) Eosinophils # (Manual) Basophils # (Manual) Metamyelocytes # (Man) Myelocytes # (Manual) Promyelocytes # (Man) Blast Cells # (Man) Plasma Cell # (Manual) Other Cells # Nucleated RBCs # (Man) Hypersegmented Neuts Hyposegmented Neuts Hypogranular Neuts Large Granular Lymphs # Lrg Granular Lymphs Hairy Cells Smudge Cells Toxic Granulation Toxic Vacuolation Dohle Bodies Gregory Rods Platelet Estimate Hypogranular Platelets Giant Platelets Platelet Satelliting RBC Morphology Polychromasia Hypochromasia Poikilocytosis Basophilic Stippling Anisocytosis Microcytosis Macrocytosis Spherocytes Pappenheimer Bodies Sickle Cells Target Cells Tear Drop Cells Ovalocytes Stomatocytes [place] Bodies Echinocytes Acanthocytes (Spur) Rouleaux RBC Agglutinates Schistocytes Sezary Cell Sodium 130 L Potassium TNP 4.8 Chloride 91 L Carbon Dioxide 29 Anion Gap 10 BUN 54 H Creatinine 4.52 H* D Est Cr Clr Drug Dosing 11.0 Est GFR ( Amer) 10.2 Est GFR (Non-Af Amer) 8.8 BUN/Creatinine Ratio 11.9 Glucose 89 Calcium 9.1 Phosphorus Magnesium Iron Unsaturated IBC Transferrin Ferritin Total Bilirubin AST ALT Alkaline Phosphatase Troponin I High Sens TNP 772.9 H* D Total Protein Albumin Globulin Albumin/Globulin Ratio Lipase TSH Nasal Screen MRSA (PCR) SARS-CoV-2, RNA, NAAT Blood Parasites ID Blood Type Antibody Screen Crossmatch Diagnostic Findings On 12/21/2022, chart and labs reviewed. Labs 12/20-12/21/2022 demonstrated improved hemoglobin from 7.2 to 8.4. Normal transaminase levels. Abnormal renal function, normal potassium, normal TSH. Elevated high sensitivity troponin. ECGs personally reviewed: ECG 12/20/2022 at 1249: Sinus rhythm first-degree AV block at [address]/T wave abnormality. ECG 12/20/2022 at 1436: Sinus rhythm first-degree AV block [address]/T wave abnormality. ECG 12/20/2022 at 1848: Sinus rhythm first-degree AV block [address]/T wave abnormality, consider inferolateral ischemia. T wave inversion more pronounced in inferior and lateral leads. ECG 12/21/2022 at 10:03 AM: Sinus rhythm first-degree AV block at [address]/T wave segments. Possible septal infarct. Nephrology consultation reviewed. History and physical report reviewed. CT neck 12/20/2022: No acute abnormality reported by radiology. Head CT 12/20/2022: No acute intracranial abnormality per radiology. CT chest 12/20/2022: No acute process within the chest. Noncontrast study. Near complete resolution of right lower lobe airspace opacities within the few small groundglass densities remaining. No new focal lung consolidation. Mild bronchial wall thickening within the right lower lobe, which has improved. Emphysema. Moderate coronary artery calcifications. Medications Administered Current Inpatient Medications Acetaminophen (Acetaminophen 325 Mg Tab) 650 mg PO Q4H PRN PRN Reason: pain/fever Stop: 01/19/23 20:13 Albuterol (Albuterol Hfa 8 Gm Inhaler) 2 puffs INH Q4H PRN PRN Reason: Shortness Of Breath Or Wheezing Stop: 01/20/23 05:09 Amlodipine Besylate (Amlodipine Besylate 5 Mg Tab) 2.5 mg PO DAILY EVON Stop: 01/20/23 08:59 Last Admin: 12/21/22 08:23 Dose: 2.5 mg Atorvastatin Calcium (Atorvastatin 40 Mg Tab) 40 mg PO QPM EVON Stop: 01/19/23 20:59 Last Admin: 12/20/22 22:32 Dose: 40 mg Carvedilol (Carvedilol 3.125 Mg Tab) 3.125 mg PO BID EVON Stop: 01/19/23 20:59 Last Admin: 12/21/22 08:23 Dose: 3.125 mg Epoetin Deep (Epoetin Deep 20,000 Units/Ml Vial) 20,000 units IV ONE ONE Stop: 12/22/22 10:01 Pantoprazole Sodium 40 mg/ (Syringe) 10 mls @ 5 mls/min IV BID EVON Stop: 01/19/23 20:59 Last Admin: 12/21/22 08:23 Dose: 5 mls/min Isosorbide Mononitrate (Isosorbide [place] Extended Rel 30 Mg Tabcr) 30 mg PO QAM EVON Stop: 01/20/23 08:59 Last Admin: 12/21/22 08:23 Dose: 30 mg Levothyroxine Sodium (Levothyroxine Sodium 25 Mcg Tablet) 25 mcg PO DAILYBB EVON Stop: 01/20/23 06:29 Last Admin: 12/21/22 05:36 Dose: 25 mcg Menthol (Cough Drop (Sugar Free) Sakina 24 Sakina/1 Box) 1 sakina BUCCAL PRN PRN PRN Reason: Cough Stop: 01/20/23 04:29 Last Admin: 12/21/22 13:14 Dose: 1 sakina Miscellaneous (Remove Nicoderm Patch) 1 each N/A DAILY@0859 EVON Stop: 01/20/23 08:58 Last Admin: 12/21/22 08:24 Dose: 1 each Nicotine (Nicotine 21 Mg/24 Hr Tdsy) 21 mg TD QAM [facility] Stop: 01/19/23 18:59 Last Admin: 12/21/22 08:50 Dose: 21 mg Sevelamer HCl (Sevelamer Hcl 800 Mg Tablet) 800 mg PO TIDM EVON Stop: 01/20/23 07:59 Last Admin: 12/21/22 12:30 Dose: 800 mg Torsemide (Torsemide 20 Mg Tab) 80 mg PO BID EVON Stop: 01/19/23 20:59 Last Admin: 12/21/22 08:23 Dose: 80 mg Trazodone HCl (Trazodone Hcl 50 Mg Tab) 25 mg PO HS EVON Stop: 01/19/23 20:59 Last Admin: 12/20/22 22:34 Dose: 25 mg Vitamin B Complex/Folic Acid (Nephrocaps) 1 cap PO DAILY EVON Stop: 01/20/23 08:59 Last Admin: 12/21/22 08:23 Dose: 1 cap PG Care Time/CCT Total # of Minutes Spent Total Time Spent with Patient: Total time spent is greater than 50% in coordination of care (as documented) at patient's floor/unit and/or counseling patient: Coding Level of Care Code 18203 INT INP/OBS CARE MIN Diagnoses Aortic stenosis I35.0 Elevated troponin R77.8 Symptomatic anemia D64.9 Current every day smoker F17.200 Hyperlipidemia E78.5 Hypertension I10 Hypertension type: unspecified Coronary artery calcification I25.10; I25.84 (6) Hypertension Hypertension type: unspecified Qualified Code(s): I10 - Essential (primary) hypertension
--- NOTE | 2022-12-21 13:32 | XCELERA ---
[id number]
[2022-12-21] MEDS: ACETAMINOPHEN 325 MG TAB PO PRN ×2 (16:35→23:49)
[2022-12-21] MEDS: ALBUTEROL HFA 8 GM INHALER INH PRN (16:44)
[2022-12-21] MEDS ORDERED: SODIUM CHLORIDE 0.9% 250 ML IV PRN (16:55)
--- NOTE | 2022-12-21 18:56 | Hospitalist Progress Note ---
Date of Service December 21, 2022 Assessment & Plan (1) Fatigue: Plan: After extensive discussion and review, as well as input from cardiology, and we review of the CT of her chestI suspect that she is correct that it probably is symptomatic anemia, definitely considered anginal equivalent, and lung disease exacerbationsboth of which certainly could have played a role, but with her echo being reassuringly stable, and her troponins, while elevated, not markedly climbingunstable angina seems highly unlikely. She appears to probably have undertreated COPD, which is probably not helping with her fatigue, but there is certainly no acuity to thatdoes not appear to be in exacerbation. To that end, while her oxygen carrying capacity and vascular disease probably both play a role in having symptomatic anemia at a higher threshold in most patients, I suspect that is the main acute reason for her fatigue. (2) Symptomatic anemia: Plan: Suspect from ESRD on dialysis rather than acute GI bleed Transfuse further since she is still symptomatic outpatient management with EPO, etc. ferritin yesterday was 302, but transferrin percent saturation just about a month and a half ago was only 11%ongoing outpatient management of iron stores (3) ESRD on hemodialysis: Plan: complains of some orthopnea, although nonspecific whether it is cardiac/pulmonary edema or pulmonary disease relatedshe does make urine, appreciate nephrology assistance in her fluid balance, given that we are giving her more blood, obviously this will serve as a bit of a "stress test" for her orthopneaMay need further diuretics (4) Elevated troponin: Plan: demand ischemia from symptomatic anemia, echo stable (5) Chronic obstructive pulmonary disease: Plan: does not appear to be in exacerbation, CT chest with resolving pneumonia findings, but not acute pneumonia findings. Start maintenance inhaler regimen, explained to patient and daughter also suspicious she has underlying sleep apneaovernight pulse ox and a.m. blood gas (6) Aortic stenosis: Plan: stable (7) Neck pain: Plan: No pathology on CT no stridor when I try to revisit this complaint with the patient today, she does not all want to talk about it, and notes that its not really a big deal (8) Anxiety: Plan: Not taking Zoloft Use diazepam now and monitor response, may need extra dosing in hospital at times (9) Current every day smoker: Plan: Nicotine patch (10) Hypothyroidism: Plan: TSH WNL Continue levothyroxine 25 mcg PO daily Plan VTE Prophylaxis - heparin subcu Diet - dialysis renal Disposition - anticipate home soon Admission and Anticipated Discharge Date Admission Date: December 20, 2022 Subjective fatiguenotes that she feels like this whenever she gets anemic, notes that at the cancer center, they generally would transfuse her if she was less than 10. No new cardiac symptoms. Has had a cough over the last few days without a whole lot of new shortness of breath. Has a degree of chronic 3 pillow orthopnea. Has never been checked for sleep apnea, but relates having been on CPAP or BiPAP in the hospital at 1 point in the past. Visited multiple times today. Updated to the best my ability and to her satisfaction. On second visit daughter was present, updated her as well. Review of Systems Review of Systems: All systems reviewed & are unremarkable except as noted in HPI & below Physical Exam Physical Exam: In general she is awake and alert pleasantly anxious but calms easily with active reassurance. No distress. HEENT normocephalic atraumatic mucous membranes moist. Cardio regular. Lungs diminished at the bases, scattered rales/rhonchi type sounds. But breathing unlabored no accessory muscle use no respiratory distress. Echocardiogram report, CT chest report, CBC, BMP all noted Results & Data Results & Data Vital Signs (Past 12 Hours) Vital Signs Temp Pulse Resp BP Pulse Ox O2 Del Method O2 Flow Rate 12/21/22 16:47 75 18 96 Oxymask 2 12/21/22 15:37 99.3 F 68 19 115/64 97 Oxymask 2 12/21/22 11:48 98.1 F 67 18 130/65 98 Oxymask 2 12/21/22 10:14 Oxymask 3 12/21/22 10:12 74 127/66 100 Oxymask 2 12/21/22 09:15 Nasal Cannula, Oxymask 3 PG Care Time/CCT Total # of Minutes Spent Total Time Spent with Patient: Total time spent is greater than 50% in coordination of care (as documented) at patient's floor/unit and/or counseling patient: Coding Level of Care Code 86952 SUB INP/OBS CARE 3/50MIN Diagnoses Fatigue R53.83 Symptomatic anemia D64.9 ESRD on hemodialysis N18.6; Z99.2 Elevated troponin R77.8 Chronic obstructive pulmonary disease J44.9 Aortic stenosis I35.0 Neck pain M54.2 Anxiety F41.9 Current every day smoker F17.200 Hypothyroidism E03.9
[2022-12-21] MEDS: FLUTICASONE/VILANTEROL 200/25MCG 14 PUFFS/INHALER INH SCH (20:23)
[2022-12-21] MEDS: traZODone HCL 50 MG TAB PO SCH (20:56)
[2022-12-21] MEDS: ATORVASTATIN 40 MG TAB PO SCH (20:57)
[2022-12-21] MEDS ORDERED: HEPARIN SOD 5,000 UNIT/0.5 ML VIAL SQ SCH (21:00)
[2022-12-22] MEDS: PANTOprazole 40 MG in SYRINGE 0 ML IV SCH ×3 (01:22→21:05)
[2022-12-22] MEDS: LEVOTHYROXINE SODIUM 25 MCG TABLET PO SCH (06:15)
[2022-12-22 07:20] LABS: HCO3 ABG 31 mmol/L (19-24); Oxygen Saturation ABG 98.8 % (90-95); PCO2 ABG 43 mmHg (35-46); PO2 ABG 86 mmHg (80-95); pH ABG 7.46 (7.35-7.45)
[2022-12-22 07:22] LABS: Allen Test Pos (Pos)
[2022-12-22 07:27] LABS: Basophils # (auto) 0.03 K/uL (0-0.2); Basophils % (auto) 0.4 %; Eosinophils # (auto) 0.08 K/uL (0-0.50); Eosinophils % (auto) 1.1 %; Hematocrit (blood only) 25.6 % (37.0-47.0); Hemoglobin 8.7 g/dl (12.0-16.0); Immature Granulocytes # (auto) 0.02 K/uL (0.01-0.20); Immature Granulocytes % (auto) 0.3 %; Lymphocytes # (auto) 1.14 K/uL (1.2-3.4); Lymphocytes % (auto) 15.5 %; Mean Corpuscular Hemoglobin 30.6 pg (25.0-34.0); Mean Corpuscular Volume 90.1 fL (80.0-100.0); Mean Platelet Volume 9.6 fL (9.4-12.4); Monocytes # (auto) 0.78 K/uL (0.11-0.59); Monocytes % (auto) 10.6 %; Neutrophils # (auto) 5.31 K/uL (1.40-6.50); Neutrophils % (auto) 72.1 %; Platelet Count 142 K/uL (130-400); RDW Coefficient of Variation 15.6 % (11.5-14.5); RDW Standard Deviation 51.3 fL (36.4-46.3); Red Blood Count 2.84 M/uL (4.20-5.40); White Blood Count 7.36 K/ul (4.8-10.8)
[2022-12-22 07:45] LABS: BUN Creatinine Ratio 11.5 (10-20); Calcium 8.8 mg/dl (8.6-10.3); Creatinine Clr Calc Pharmacy 8.5 ml/min; Est GFR (African American) 7.5 ml/min; Est GFR (Non-African American) 6.4 ml/min; Potassium 4.9 mmol/L (3.5-5.1)
[2022-12-22] MEDS: ALBUTEROL HFA 8 GM INHALER INH PRN (08:29)
[2022-12-22 08:54] LABS: Troponin I High Sensitivity 607.8 pg/ml (0-14)
[2022-12-22] MEDS: NICOTINE 21 MG/24 HR TDSY TD SCH (09:50)
[2022-12-22] MEDS: FLUTICASONE/VILANTEROL 200/25MCG 14 PUFFS/INHALER INH SCH (09:50)
[2022-12-22] MEDS: UMECLIDINIUM BROMIDE 62.5MCG/BLISTER 7 PUFFS/INHALER INH SCH (09:50)
[2022-12-22] MEDS: ISOSORBIDE MONO EXTENDED REL 30 MG TABCR PO SCH (09:51)
[2022-12-22] MEDS: TORSEMIDE 20 MG TAB PO SCH ×2 (09:51→21:06)
[2022-12-22] MEDS: NEPHROCAPS PO SCH (09:51)
[2022-12-22] MEDS ORDERED: EPOETIN ALFA 20,000 UNITS/ML VIAL IV ONE (10:00)
--- NOTE | 2022-12-22 10:23 | Nephrology Progress Note ---
Date of Service December 22, 2022 Assessment & Plan (1) ESRD on hemodialysis: (2) Symptomatic anemia: (3) Neck pain: (4) COPD (chronic obstructive pulmonary disease): (5) Hypertension: (6) Hyperlipidemia: Plan ESRD on hemodialysis via left brachiocephalic AV fistula on TTS at [facility]. Admitted with anterior knee pain, generalized weakness and symptomatic anemia, status post 1 unit of PRBC and negative imaging of chest and neck. Blood pressure, volume status, electrolyte acceptable. --plan for dialysis today as her regular schedule, will give Epogen 70780 units during dialysis. Fistulogram cancelled for today considering elevated troponin but if she remains asymptomatic and troponin level off she will have the fistulogram tomorrow --continue Renvela and Nephrocaps Admission and Anticipated Discharge Date Admission Date: December 20, 2022 Subjective Toña was seen and evaluated this morning. She is feeling slightly better, generalized weakness improved. denies any significant chest pain, shortness of breath seems better. Troponin was noted to be elevated. Hemoglobin slightly improved to 8.7 Review of Systems Review of Systems: detailed review of system was done and pertinent positives negatives are mentioned above. Physical Exam Constitutional: WD/WN, vitals as above + ill appearing Eyes: + anicteric sclerae Neck: normal visual inspection Respiratory: no respiratory distress Auscultation: + diminished lung sound s; no wheezes Cardiovascular: Rate/Rhythm: regular rate and regular rhythm Heart Sounds: normal S1, normal S2 and + murmur Extremities: no edema Musculoskeletal: Extremities: extremities normal to inspection Skin: no rashes, warm and dry Neurologic: no focal motor deficits Psychiatric: Orientation: alert and oriented x 3 Affect: + anxious affect Mood: + depressed mood Results & Data Vital Signs (Past 12 Hours) Vital Signs Temp Pulse Pulse Resp BP BP Pulse Ox 12/22/22 08:30 81 16 95 12/22/22 07:35 37.1 C 81 18 137/61 95 12/22/22 03:13 64 96 12/22/22 01:10 36.8 C 88 18 136/61 91 12/22/22 00:40 37.2 C 71 20 124/60 94 12/21/22 23:40 37.1 C 77 20 132/63 93 12/21/22 23:10 37.1 C 84 20 119/57 L 93 12/21/22 22:55 37.3 C 72 18 127/62 90 12/21/22 22:40 37.3 C 73 18 118/57 L 94 12/22/22 00:23 92 12/21/22 23:44 91 12/21/22 22:33 80 91 12/21/22 22:55 37.3 C 72 20 127/62 90 12/21/22 22:36 37.3 C 73 18 118/57 L 94 O2 Del Method O2 Flow Rate 12/22/22 08:30 Nasal Cannula 2 12/22/22 07:35 Nasal Cannula 12/22/22 03:13 Nasal Cannula 12/22/22 01:10 12/22/22 00:40 12/21/22 23:40 12/21/22 23:10 12/21/22 22:55 12/21/22 22:40 12/22/22 00:23 Nasal Cannula 2 12/21/22 23:44 Nasal Cannula 1 12/21/22 22:33 Room Air 12/21/22 22:55 12/21/22 22:36 PG Care Time/CCT Total # of Minutes Spent Total Time Spent with Patient: Total time spent is greater than 50% in coordination of care (as documented) at patient's floor/unit and/or counseling patient: Coding Level of Care Code 77863 SUB INP/OBS CARE MIN Diagnoses ESRD on hemodialysis N18.6; Z99.2 Symptomatic anemia D64.9 Neck pain M54.2 COPD (chronic obstructive pulmonary disease) J44.9 Hypertension I10 Hypertension type: unspecified Hyperlipidemia E78.5 (5) Hypertension Hypertension type: unspecified Qualified Code(s): I10 - Essential (primary) hypertension
[2022-12-22] MEDS: SEVELAMER HCL 800 MG TABLET PO SCH ×3 (10:48→16:11)
--- NOTE | 2022-12-22 10:58 | Hospitalist Progress Note ---
Date of Service December 22, 2022 Assessment & Plan (1) Fatigue: (2) ESRD on hemodialysis: (3) Symptomatic anemia: (4) Elevated troponin: (5) COPD (chronic obstructive pulmonary disease): (6) Neck pain: (7) Anxiety: (8) Current every day smoker: (9) Hypothyroidism: Plan #Fatigue - Echo stable - presumed secondary to symptomatic anemia exacerbated by underlying lung disease #ESRD on hemodialysis - dialysis done today - fistulogram scheduled for tomorrow #Symptomatic anemia -h/o ESRD on hemodialysis -s/p transfusion -outpatient nephro management #elevated troponin -Echo largely unrevealing -like secondary to demand ischemia in the setting of symptomatic anemia #COPD -no acute pneumonia findings on CT chest -continue maintenance inhaler regimen -suspicion for KEVIN, recommend sleep study in the outpatient setting following discharge #neck pain - CT non-focal #anxiety -h/o brief zoloft trial - diazepam while in hospital #smoker - nicotine patch #hypothyroidism - continue levothyroxine Admission and Anticipated Discharge Date Admission Date: December 20, 2022 Supervising Physician Co-Signing Physician Notes I personally examined the patient and verified all morfin points of history and exam, discussed case, and agree with decision making with Dr Gonzalez feeling okay. Would like to go home. But understands that it may take a lot longer for vascular to be able to see/perform fistulogram as an outpatient, therefore willing to stay. Vitals noted, in general she is awake and alert pl easant no distress. HEENT normocephalic atraumatic mucous membranes moist. Breathing unlabored no accessory muscle use good effort. Skin shows no rashes no pallor or icterus. Neuro without focal deficits. Symptomatic anemiaappears to be predominantly just hypoproliferative due to ESRD, has a much higher hemoglobin to develop symptoms then most febrileprobably because of diffuse vascular disease, untreated COPD, and overall deconditioning. Demand ischemia due to underlying presumed vascular disease and symptomatic anemia. Anticipate fistulogram tomorrow, and barring any surprises, hopefully home after that otherwise as above Subjective Patient evaluated at bedside, notes that she would like to go home as she feels a heightened level of anxiety while in the hospital. Required an extra dose of diazepam last night. Discussed the importance of getting fistulogram done, of which patient is understanding. Patient scheduled to get dialysis today. At this time, patient denies shortness of breath, denies chest pain, endorses mild but tolerable neck pain. Review of Systems Review of Systems: All systems reviewed & are unremarkable except as noted in HPI & below Physical Exam Constitutional: WD/WN, vitals as above not in distress Respiratory: mild expiratory wheezes appreciated on auscultation Cardiovascular: RRR, no murmur, no edema Skin: bruising on left arm in area surround AV fistula Results & Data Results & Data Vital Signs (Past 12 Hours) Vital Signs Temp Pulse Pulse Resp BP BP Pulse Ox 12/22/22 08:30 81 16 95 12/22/22 07:35 37.1 C 81 18 137/61 95 12/22/22 03:13 64 96 12/22/22 01:10 36.8 C 88 18 136/61 91 12/22/22 00:40 37.2 C 71 20 124/60 94 12/21/22 23:40 37.1 C 77 20 132/63 93 12/21/22 23:10 37.1 C 84 20 119/57 L 93 12/22/22 00:23 92 12/21/22 23:44 91 O2 Del Method O2 Flow Rate 12/22/22 08:30 Nasal Cannula 2 12/22/22 07:35 Nasal Cannula 12/22/22 03:13 Nasal Cannula 12/22/22 01:10 12/22/22 00:40 12/21/22 23:40 12/21/22 23:10 12/22/22 00:23 Nasal Cannula 2 12/21/22 23:44 Nasal Cannula 1 Resident Activity Tracking Resident Involvement: Resident Care Provided Care Provided: Adult Hospital Medicine
--- NOTE | 2022-12-22 11:24 | Communication Note ---
Date of Service: December 22, 2022 troponin today trending downward. Will go ahead with fistulogram tomorrow afternoon.
[2022-12-22] MEDS: carvediloL 3.125 MG TAB PO SCH ×2 (15:57→21:05)
[2022-12-22] MEDS: amLODIPine BESYLATE 5 MG TAB PO SCH (15:57)
--- NOTE | 2022-12-22 17:29 | Billing Data ---
Date of Service December 22, 2022 Coding Level of Care Code 85588 SUB INP/OBS CARE
[2022-12-22] MEDS: ATORVASTATIN 40 MG TAB PO SCH (21:07)
[2022-12-22] MEDS: traZODone HCL 50 MG TAB PO SCH (21:09)
--- NOTE | 2022-12-22 22:48 | Electrocardiogram Report ---
Test Reason : Blood Pressure : / mmHG Vent. Rate : 091 BPM Atrial Rate : 091 BPM P-R Int : 244 ms QRS Dur : 088 ms QT Int : 396 ms P-R-T Axes : 118 -01 132 degrees QTc Int : 488 ms Sinus rhythm with 1st degree A-V block Nonspecific ST and T wave abnormality Prolonged QT Abnormal ECG When compared with ECG of 14-OCT-2022 23:23, Premature atrial complexes are no longer Present Confirmed by Pee Mcdonald ([id number]) on 12/22/2022 10:47:43 PM Referred By: REFERRED SELF Confirmed By:Pee Mcdonald
--- NOTE | 2022-12-22 22:53 | Electrocardiogram Report ---
Test Reason : Blood Pressure : / mmHG Vent. Rate : 088 BPM Atrial Rate : 088 BPM P-R Int : 216 ms QRS Dur : 088 ms QT Int : 396 ms P-R-T Axes : 089 -07 060 degrees QTc Int : 479 ms Sinus rhythm with sinus arrhythmia with 1st degree A-V block Nonspecific ST and T wave abnormality Prolonged QT Abnormal ECG When compared with ECG of 20-DEC-2022 12:49, No significant change was found Confirmed by Pee Mcdonald ([id number]) on 12/22/2022 10:52:52 PM Referred By: REFERRED SELF Confirmed By:Pee Mcdonald
--- NOTE | 2022-12-22 23:38 | Electrocardiogram Report ---
Test Reason : Blood Pressure : / mmHG Vent. Rate : 097 BPM Atrial Rate : 097 BPM P-R Int : 232 ms QRS Dur : 090 ms QT Int : 358 ms P-R-T Axes : 070 -02 173 degrees QTc Int : 454 ms Sinus rhythm with 1st degree A-V block Abnormal ECG When compared with ECG of 20-DEC-2022 14:36, T wave inversion more evident in Lateral leads Confirmed by Pee Mcdonald ([id number]) on 12/22/2022 11:38:21 PM Referred By: REFERRED SELF Confirmed By:Pee Mcdonald
--- NOTE | 2022-12-23 05:56 | Electrocardiogram Report ---
Test Reason : Blood Pressure : / mmHG Vent. Rate : 071 BPM Atrial Rate : 071 BPM P-R Int : 210 ms QRS Dur : 088 ms QT Int : 422 ms P-R-T Axes : 007 005 026 degrees QTc Int : 458 ms Sinus rhythm with sinus arrhythmia with 1st degree A-V block Septal infarct , age undetermined Abnormal ECG When compared with ECG of 20-DEC-2022 18:48, Nonspecific T wave abnormality now evident in Anterior leads T wave inversion no longer evident in Lateral leads Confirmed by Pee Mcdonald ([id number]) on 12/23/2022 5:55:27 AM Referred By: REFERRED SELF Confirmed By:Pee Mcdonald
[2022-12-23] MEDS ORDERED: ceFAZolin 2000MG 2,000 MG/15 ML SYR IV SCH (06:00)
[2022-12-23] MEDS: LEVOTHYROXINE SODIUM 25 MCG TABLET PO SCH (06:12)
--- NOTE | 2022-12-23 07:25 | Consultation ---
Date of Consultation December 23, 2022 Assessment & Plan (1) Dialysis AV fistula malfunction: Recommend a fistulogram with possible intervention. I have discussed the risks options and benefits of the procedure with the patient. The patient understands the risks options and benefits and agrees to the procedure. History of Present Illness Reason for Consultation: Malfunctioning fistula Attending Physician: Jn Wagner DO History of Present Illness Patient is a 77yo who has a malfunctioning fistula. She has had increased tropo yevgeniy but is now trending downward. Allergies Allergy/AdvReac Type Severity Reaction Status Date / Time codeine Allergy Intermediate RASH, Verified 12/20/22 15:06 RAPID HEART BEAT sulfamethoxazole AdvReac Severe ELEVATED Verified 12/20/22 15:07 POTASSIUM, BRADYCARDIC "HEART TRIED TO SHUT DOWN" trimethoprim AdvReac Severe ELEVATED Verified 12/20/22 15:07 POTASSIUM, BRADYCARDIC "HEART TRIED TO SHUT DOWN" gabapentin AdvReac Intermediate HALLUCINATIONS; Verified 12/20/22 15:07 SCREAMING/YELLING hydromorphone [From Dilaudid] AdvReac Intermediate Hallucinati Verified 12/20/22 15:06 ng morphine AdvReac Unknown unsure Verified 12/20/22 15:06 "might be okay to take" oxycodone [From Percocet] AdvReac Unknown unsure Verified 12/20/22 15:06 "might be okay to take" Home Medications Medication Instructions Recorded Confirmed Type atorvastatin 40 mg tablet 40 mg PO QPM 09/16/18 12/20/22 History multivitamin 1 tab PO DAILY 12/10/20 12/20/22 History pantoprazole 40 mg tablet,delayed 40 mg PO BID #60 tabs 04/01/21 12/20/22 Rx release albuterol sulfate 90 mcg/actuation 2 puff inhalation UD PRN Shortness 04/06/21 12/20/22 History aerosol inhaler Of Breath Or Wheezing levothyroxine 25 mcg tablet 25 mcg PO QAM #90 tabs 09/25/22 12/20/22 Rx isosorbide mononitrate 30 mg 30 mg PO QAM #30 tabs 10/20/22 12/20/22 Rx tablet,extended release 24 hr cyanocobalamin (vitamin B-12) 100 100 mcg PO DAILY #30 tabs 11/23/22 12/20/22 Rx mcg tablet (Vitamin B-12) nitroglycerin 0.4 mg sublingual 0.4 mg sublingual DIRECTED PRN 11/23/22 12/20/22 Rx tablet Chest Pain #10 tabs trazodone 50 mg tablet 25 mg PO DAILY #30 tabs 11/25/22 12/20/22 Rx carvedilol 3.125 mg tablet 3.125 mg PO BID 12/09/22 12/20/22 History amlodipine 5 mg tablet 2.5 mg PO DAILY #60 tabs 12/16/22 12/20/22 Rx sertraline 25 mg tablet (Zoloft) 25 mg PO DAILY #30 tabs 12/16/22 12/20/22 Rx vitamin B complex-vitamin C-folic 1 tab PO DAILY #30 tabs 12/16/22 12/20/22 Rx acid 0.8 mg tablet (Renal-Carissa) sevelamer carbonate 800 mg tablet 800 mg PO TIDM 12/20/22 12/20/22 History torsemide 20 mg tablet 80 mg PO BID 12/20/22 12/20/22 History Patient History Medical History Anemia due to GI blood loss AV fistula left arm AVM (arteriovenous malformation) AVM (arteriovenous malformation) of small bowel, 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, acquired with hemorrhage Bereavement due to life event Blood in stool resolved Cardiac murmur Carotid stenosis, left Left carotid endarterectomy 11/2020 [facility] with [address] Love Chronic back pain Chronic obstructive pulmonary disease inhaler/nebulizer prn Chronic obstructive pulmonary disease CKD (chronic kidney disease) stage 4, GFR 15-29 ml/min Constipation DVT prophylaxis Encounter for pre-operative examination ESRD on hemodialysis GERD (gastroesophageal reflux disease) GI bleed Hemorrhagic gastritis Hx of gout Hyperlipidemia Hypertension Hypothyroidism Melena Mesenteric artery stenosis Peripheral arterial disease Pulmonary edema Renal artery stenosis Symptomatic anemia Tobacco use disorder Tobacco use disorder Surgical History History of bilateral cataract extraction History of carotid endarterectomy (12/10/20) [facility] with Dr Love History of carpal tunnel release of both wrists History of cholecystectomy History of colonoscopy 11/05/21 [facility] History of colonoscopy with polypectomy History of esophagogastroduodenoscopy (EGD) History of laminectomy lumbar History of repair of right rotator cuff History of tooth extraction all teeth removed Family History Mother Family history of diabetes mellitus Brother Family history of diabetes mellitus Sister Family history of diabetes mellitus Other No family history of adverse response to anesthesia Social History Smoking Status: Current every day smoker Tobacco Type: Cigarettes Age Started Using Tobacco: 20; Cigarettes Per Day: 10; Second Hand Exposure: Yes; Do You Dip or Chew Tobacco: No; Tobacco Cessation Education Requested by Patient: No Hx Alcohol Use: Yes Alcohol type: wine Hx Substance Use: No Preferred Language: Polish Communication Ability: Effective Molecular Genetic Pathologist Required: No Beliefs That Will Affect Care: None marital status: Current Living Situation: Alone Current Living Situation Comment: Apartment current occupational status: 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 [employer] How many Children do You have: 2 Other Information That Helps Us Care for You: No Feels Safe at Home: Yes Safety Concerns: Feels Safe At This Time Childhood Exposure to Second-Hand Smoke: No Assistive Devices: Walker Review of Systems Review of Systems: All systems reviewed & are unremarkable except as noted in HPI & below Physical Exam Constitutional: WD/WN, vitals as above Respiratory: normal respiratory effort; no respiratory distress Auscultatio n: + wheezes Cardiovascular: RRR, no murmur, no edema Extremities: normal capillary refill and + AV fistula Gastrointestinal (Abdomen): Inspection/Auscultation: abdomen normal to inspection; abdomen not distended Neurologic: CN's II-XI intact bilaterally and moves all extremities Results & Data Vital Signs (Past 12 Hours) Vital Signs Temp Pulse Pulse Resp BP Pulse Ox O2 Del Method 12/23/22 03:20 37.3 C 71 20 146/69 H 98 Nasal Cannula 12/23/22 00:00 67 12/22/22 21:00 Nasal Cannula 12/22/22 23:09 37.2 C 73 16 143/56 H 98 Nasal Cannula 12/22/22 19:54 37.1 C 92 H 20 147/55 H 97 Nasal Cannula O2 Flow Rate 12/23/22 03:20 2 12/23/22 00:00 12/22/22 21:00 2 12/22/22 23:09 2 12/22/22 19:54 2
[2022-12-23] MEDS: NICOTINE 21 MG/24 HR TDSY TD SCH (07:51)
[2022-12-23] MEDS: amLODIPine BESYLATE 5 MG TAB PO SCH (07:51)
[2022-12-23] MEDS: ISOSORBIDE MONO EXTENDED REL 30 MG TABCR PO SCH (07:52)
[2022-12-23] MEDS: carvediloL 3.125 MG TAB PO SCH (07:52)
[2022-12-23] MEDS: TORSEMIDE 20 MG TAB PO SCH (07:52)
[2022-12-23] MEDS: NEPHROCAPS PO SCH (07:52)
[2022-12-23] MEDS: FLUTICASONE/VILANTEROL 200/25MCG 14 PUFFS/INHALER INH SCH (07:53)
[2022-12-23] MEDS: UMECLIDINIUM BROMIDE 62.5MCG/BLISTER 7 PUFFS/INHALER INH SCH (07:53)
[2022-12-23] MEDS: SEVELAMER HCL 800 MG TABLET PO SCH ×2 (07:57→12:56)
[2022-12-23] MEDS ORDERED: ceFAZolin 1000MG 1,000 MG/7.5 ML SYR IV STA (08:27)
[2022-12-23] MEDS ORDERED: LIDOCAINE 1% LOCAL 20 ML VIAL ONE (08:28)
--- NOTE | 2022-12-23 08:40 | Pre Anesthesia Assessment ---
Date of Service December 23, 2022 Pre Sedation Assessment Vital Signs Temp Pulse Pulse Pulse Resp BP BP 12/23/22 08:13 36.8 C 65 20 145/50 H 12/23/22 07:22 37.4 C 70 18 133/61 12/23/22 03:20 37.3 C 71 20 146/69 H 12/23/22 00:00 67 12/22/22 21:00 12/22/22 23:09 37.2 C 73 16 143/56 H 12/22/22 19:54 37.1 C 92 H 20 147/55 H 12/22/22 17:19 37.4 C 94 H 16 153/64 H 12/22/22 16:28 75 14 148/59 H 12/22/22 15:10 36.8 C 69 135/55 L 12/22/22 15:33 83 12/22/22 14:30 67 134/55 L 12/22/22 14:00 69 143/55 H 12/22/22 13:30 66 141/51 H 12/22/22 13:00 66 135/62 12/22/22 13:30 12/22/22 12:30 66 134/58 L 12/22/22 12:00 64 124/47 L 12/22/22 11:30 68 129/51 L 12/22/22 10:54 36.9 C 88 12/22/22 11:32 64 Pulse Ox O2 Del Method O2 Flow Rate 12/23/22 08:13 93 Room Air 12/23/22 07:22 97 Room Air 12/23/22 03:20 98 Nasal Cannula 2 12/23/22 00:00 12/22/22 21:00 Nasal Cannula 2 12/22/22 23:09 98 Nasal Cannula 2 12/22/22 19:54 97 Nasal Cannula 2 12/22/22 17:19 97 Nasal Cannula 2 12/22/22 16:28 98 Nasal Cannula 2 12/22/22 15:10 12/22/22 15:33 12/22/22 14:30 12/22/22 14:00 12/22/22 13:30 12/22/22 13:00 12/22/22 13:30 Nasal Cannula 2 12/22/22 12:30 12/22/22 12:00 12/22/22 11:30 12/22/22 10:54 12/22/22 11:32 Cardiovascular RRR, no murmur, no edema Respiratory normal respiratory effort, lungs clear to auscultation Pre-Sedation Airway Assessment Smoking Status: Current every day smoker Hx Sleep Apnea: No Short, Thick Neck: No Thyromental Distance: > or= 3.5 Finger Breadths Oral Cavity: + Dentures Mallampati Class: III ASA: ASA3 NPO Status Date of Last Intake of Fluids: 12/23/22 Time of Last Intake of Fluids: 00:00 Date of Last Intake of Solid Food: 12/23/22 Time of Last Intake of Solid Foods: 00:00 Procedure Planning Contraindications for Sedation: none Current Medications Reviewed: Yes Notes The planned sedation has been discussed with the patient. Informed Consent was obtained. I have identified the patient, determined the appropriateness of sedation and have assessed the patient immediately prior to the procedure. All medicine(s) and interventions are by my order.
[2022-12-23] MEDS ORDERED: fentaNYL citrate PF 100 MCG/2 ML VIAL ONE (08:59)
[2022-12-23] MEDS ORDERED: MIDAZOLAM HCL 1 MG/ML 2ML VIAL ONE (08:59)
[2022-12-23] MEDS ORDERED: OPTIRAY 300 IV PRN (09:19)
--- NOTE | 2022-12-23 09:27 | Procedure Note ---
Angiogram Post Procedure Fluoroscopy Time (minutes): 5.8 Conscious Sedation Time (minutes): 21 Radiation (mGy): 7 Contrast: 13 Post Operative Report Pre & Post Diagnosis Operation Date: 12/23/22 08:20 Pre-Op Diagnosis: Malfunctioning Fistula Post-Op Diagnosis: Malfunctioning Fistula I identified the patient and participated in the time-out.: Yes Procedure Operation Date: 12/23/22 08:20 Actual Procedures p Fistulogram, Embolization of Side Branch, Moderate Sedation [id number](Left) - Mark Love MD Surgeon Mark Love MD Jd Edwards Developer none Estimated Blood Loss 10 Findings Consistent with Post-Op Diagnosis Specimens none Anesthesia Type RN Sedation Complications none Disposition Accompanied Patient To Recovery: No Disposition: Recovery Room Indications This is a 77-year-old female who has a left upper arm fistula which was created via the endovascular technique. They are having difficulty with puncturing the fistula. Fistulogram was recommended. I have discussed the risks options and benefits of the procedure with the patient. The patient understands the risks options and benefits and agrees to the procedure. Description of Procedure The patient was taken to the angiogram suite and placed in the supine position. The left arm was then prepped and draped in a sterile manner. The patient was identified and a timeout performed. Local anesthetic was administered and a percutaneous puncture was then made of the proximal portion of the left arm AV fistula using micropuncture technique. Micropuncture wire and sheath were then inserted. A fistulogram was then performed. The fistulogram revealed a widely patent fistula. It was approximately 8 mm in size throughout. There is no evidence of any stenosis. We did compress the fistula and do a retrograde injection which showed a widely patent arterial anastomosis. There is also a small amount of flow going up to the basilic vein. There was a large branch coming from the cephalic vein just beyond the puncture site which is feeding the deep system. No intervention was needed of the main cephalic vein fistula outflow. We did cannulate the large sidebranch after we switched the sheath to a 6 Slovak sheath. The sidebranch was cannulated with an 035 wire and a Kumpe catheter. The position of the Kumpe was confirmed to be in the branch and the bifurcation. We then deployed to 6 mm coils and occluded this sidebranch. Final fistulogram showed no flow into the sidebranch. There is excellent flow going through the cephalic vein. The sheath was then pulled and pressure was applied. Adequate hemostasis was obtained. The patient left the angiogram suite in good condition and tolerated the procedure well. I attest to the content of the Intraoperative Record and any orders documented therein. Any exceptions are noted below.
--- NOTE | 2022-12-23 09:29 | Post Anesthesia Assessment ---
Date of Service December 23, 2022 Post Sedation Assessment Vital Signs Temp Pulse Pulse Pulse Resp BP BP 12/23/22 09:23 60 18 136/51 L 12/23/22 09:18 60 18 135/50 L 12/23/22 09:20 60 18 135/50 L 12/23/22 09:15 60 18 125/46 L 12/23/22 09:10 62 18 124/50 L 12/23/22 09:05 62 18 133/51 L 12/23/22 09:00 62 18 140/48 L 12/23/22 08:13 36.8 C 65 20 145/50 H 12/23/22 07:22 37.4 C 70 18 133/61 12/23/22 03:20 37.3 C 71 20 146/69 H 12/23/22 00:00 67 12/22/22 21:00 12/22/22 23:09 37.2 C 73 16 143/56 H 12/22/22 19:54 37.1 C 92 H 20 147/55 H 12/22/22 17:19 37.4 C 94 H 16 153/64 H 12/22/22 16:28 75 14 148/59 H 12/22/22 15:10 36.8 C 69 135/55 L 12/22/22 15:33 83 12/22/22 14:30 67 134/55 L 12/22/22 14:00 69 143/55 H 12/22/22 13:30 66 141/51 H 12/22/22 13:00 66 135/62 12/22/22 13:30 12/22/22 12:30 66 134/58 L 12/22/22 12:00 64 124/47 L 12/22/22 11:30 68 129/51 L 12/22/22 10:54 36.9 C 88 12/22/22 11:32 64 Pulse Ox O2 Del Method O2 Flow Rate 12/23/22 09:23 96 Nasal Cannula 12/23/22 09:18 100 Nasal Cannula 3 12/23/22 09:20 100 Nasal Cannula 3 12/23/22 09:15 100 Nasal Cannula 3 12/23/22 09:10 100 Nasal Cannula 3 12/23/22 09:05 99 Nasal Cannula 3 12/23/22 09:00 99 Nasal Cannula 4 12/23/22 08:13 93 Room Air 12/23/22 07:22 97 Room Air 12/23/22 03:20 98 Nasal Cannula 2 12/23/22 00:00 12/22/22 21:00 Nasal Cannula 2 12/22/22 23:09 98 Nasal Cannula 2 12/22/22 19:54 97 Nasal Cannula 2 12/22/22 17:19 97 Nasal Cannula 2 12/22/22 16:28 98 Nasal Cannula 2 12/22/22 15:10 12/22/22 15:33 12/22/22 14:30 12/22/22 14:00 12/22/22 13:30 12/22/22 13:00 12/22/22 13:30 Nasal Cannula 2 12/22/22 12:30 12/22/22 12:00 12/22/22 11:30 12/22/22 10:54 12/22/22 11:32 Recovery Score Activity: Moves 4 extremities Respiration: Deep Breath/Cough Circulation: +/-20% PreAnes Value Consciousness: Fully Awake Oxygen Saturation: > 92% On Room Air Post Anesthesia Score: 10 Discharge Sedation Level of Care: Fast Track Phase II Post Sedation Plan On clinical assessment, the patient appears to have tolerated the sedation without complications. Patient is recovering as anticipated. Patient will continue to be monitored by nursing and may be discharged when sedation discharge criteria are met per below protocol. Upon Completions of procedure up to 15 minutes continue every 5 minute vital signs and the P.A.R. score; then discharge to a Phase I or Fast Track to Phase II per the following guidelines: * Discharge Patient to appropriate Phase II area if PAR is 8 or greater or return to pre- procedure baseline. The post - procedure orders will be as directed. * If PAR score is less than 8 or not return to pre-procedure baseline then patient will follow Phase I monitoring till PAR is reached for Phase II. The Phase I may be done in procedure room or may call to secure a Phase I area. * If naloxone or flumazenil are used for reversal, hold in Phase I for continued monitoring from when last reversal dose was given for a minimum of 60 minutes or longer pending the nurse and/or physician discretion of patient condition before discharge to Phase II. Please call the Sedation Physician to re-evaluate and complete post-note for discharge to Phase II area. Do NOT discharge from procedure sedation or Phase 1 until post- sedation evaluation note is complete by procedure /sedation MD Sedation Discharge Instructions to be given to the patient at discharge to home.
[2022-12-23] MEDS: PANTOprazole 40 MG in SYRINGE 0 ML IV SCH (09:43)
--- NOTE | 2022-12-23 10:09 | Nephrology Progress Note ---
Date of Service December 23, 2022 Assessment & Plan (1) ESRD on hemodialysis: (2) Symptomatic anemia: (3) Neck pain: (4) COPD (chronic obstructive pulmonary disease): (5) Hypertension: (6) Hyperlipidemia: Plan ESRD on hemodialysis via left brachiocephalic AV fistula on TTS at [facility]. Admitted with anterior knee pain, generalized weakness and symptomatic anemia, status post 1 unit of PRBC and negative imaging of chest and neck. Blood pressure, volume status, electrolyte acceptable. Had dialysis yesterday as her regular schedule. Hb improved to 8.7 s/p 3 PRBC. -- received Epogen 77884 units during dialysis. Fistulogram this morning --continue Renvela and Nephrocaps --left arm precaution, dose meds for eGFR <10 Admission and Anticipated Discharge Date Admission Date: December 20, 2022 Subjective Toña was off floor for fistulogram this am. Vitals were stable. No overnight events. Results & Data Vital Signs (Past 12 Hours) Vital Signs Temp Pulse Pulse Resp BP Pulse Ox O2 Del Method 12/23/22 09:37 36.9 C 63 16 128/57 L 94 Room Air 12/23/22 09:23 60 18 136/51 L 96 Nasal Cannula 12/23/22 09:18 60 18 135/50 L 100 Nasal Cannula 12/23/22 09:20 60 18 135/50 L 100 Nasal Cannula 12/23/22 09:15 60 18 125/46 L 100 Nasal Cannula 12/23/22 09:10 62 18 124/50 L 100 Nasal Cannula 12/23/22 09:05 62 18 133/51 L 99 Nasal Cannula 12/23/22 09:00 62 18 140/48 L 99 Nasal Cannula 12/23/22 08:13 36.8 C 65 20 145/50 H 93 Room Air 12/23/22 07:22 37.4 C 70 18 133/61 97 Room Air 12/23/22 03:20 37.3 C 71 20 146/69 H 98 Nasal Cannula 12/23/22 00:00 67 12/22/22 23:09 37.2 C 73 16 143/56 H 98 Nasal Cannula O2 Flow Rate 12/23/22 09:37 12/23/22 09:23 12/23/22 09:18 3 12/23/22 09:20 3 12/23/22 09:15 3 12/23/22 09:10 3 12/23/22 09:05 3 12/23/22 09:00 4 12/23/22 08:13 12/23/22 07:22 12/23/22 03:20 2 12/23/22 00:00 12/22/22 23:09 2 PG Care Time/CCT Total # of Minutes Spent Total Time Spent with Patient: Total time spent is greater than 50% in coordination of care (as documented) at patient's floor/unit and/or counseling patient: Coding Level of Care Code 37689 SUB INP/OBS CARE 06/17MIN Diagnoses ESRD on hemodialysis N18.6; Z99.2 Symptomatic anemia D64.9 Neck pain M54.2 COPD (chronic obstructive pulmonary disease) J44.9 Hypertension I10 Hypertension type: unspecified Hyperlipidemia E78.5 (5) Hypertension Hypertension type: unspecified Qualified Code(s): I10 - Essential (primary) hypertension
[2022-12-23 10:32] LABS: HBSAG NON-REACTIVE (NON-REACTIVE); Hepatitis B Surface Ab, Quant 5 mIU/mL (> OR = 10)
[2022-12-23 10:39] LABS: Hematocrit (blood only) 24.6 % (37.0-47.0); Hemoglobin 8.2 g/dl (12.0-16.0); Mean Corpuscular Hemoglobin 30.9 pg (25.0-34.0); Mean Corpuscular Hgb Conc 33.3 g/dL (32.0-36.0); Mean Corpuscular Volume 92.8 fL (80.0-100.0); Mean Platelet Volume 9.9 fL (9.4-12.4); Platelet Count 148 K/uL (130-400); RDW Coefficient of Variation 15.9 % (11.5-14.5); RDW Standard Deviation 53.4 fL (36.4-46.3); Red Blood Count 2.65 M/uL (4.20-5.40); White Blood Count 7.07 K/ul (4.8-10.8)
--- NOTE | 2022-12-23 19:39 | Discharge Summary ---
Date of Service December 23, 2022 Admission HPI Per Admitting Provider Toña Chapin is a 77 year old female with severe aortic stenosis, ESRD on dialysis and chronic anemia who presents to the ER neck pain. She reports this started a couple of days ago, getting progressively worse. Feeling of not being able to breath with this although not in respiratory distress. No sore throat and able to eat fine. The pain is from her submandibular gland to her sternal notch. She reports sucking on lozenges helps a little. She is unclear whether she has had this neck pain previously but her daughter at bedside reports this is new. Constant with no relief for the last 2 days. No fever, chills, chest pain, shoulder pain, diaphoresis. Today because she felt generally fatigued and weak (this is how she normally feels when she gets anemic) she decided to come to the ER. Mild lightheadedness. Principal Diagnosis symptomatic anemia Discharge Exam General she is awake and alert pleasant no distress. HEENT normocephalic atraumatic mucous membranes moist. Neck pain is reproducible by palpating the muscles as they insert along her jawline, and actually her lateral/posterior jaws exquisitely tender at the muscular insertions. Discharge Data Allergies Allergy/AdvReac Type Severity Reaction Status Date / Time codeine Allergy Intermediate RASH, Verified 12/20/22 15:06 RAPID HEART BEAT sulfamethoxazole AdvReac Severe ELEVATED Verified 12/20/22 15:07 POTASSIUM, BRADYCARDIC "HEART TRIED TO SHUT DOWN" trimethoprim AdvReac Severe ELEVATED Verified 12/20/22 15:07 POTASSIUM, BRADYCARDIC "HEART TRIED TO SHUT DOWN" gabapentin AdvReac Intermediate HALLUCINATIONS; Verified 12/20/22 15:07 SCREAMING/YELLING hydromorphone [From Dilaudid] AdvReac Intermediate Hallucinati Verified 12/20/22 15:06 ng morphine AdvReac Unknown unsure Verified 12/20/22 15:06 "might be okay to take" oxycodone [From Percocet] AdvReac Unknown unsure Verified 12/20/22 15:06 "might be okay to take" Consultations 12/20/22 16:11 ED Decision to Admit Stat 12/21/22 06:36 Consult Cardiology Routine Consult Nephrology Routine 12/21/22 09:48 Consult Vascular Surgery Routine Procedures Performed Operation Date: 12/23/22 08:20 Actual Procedures p Fistulogram, Embolization of Side Branch, Moderate Sedation [id number](Left) - Mark Love MD Ordered Studies 12/20/22 13:25 CT chest diagnostic wo con Stat CT head/brain wo con Stat CT neck soft tissues [CT soft tissue neck wo con] Stat 12/22/22 07:09 EV angio arteriovenous shunt Routine 12/23/22 07:13 EV angio arteriovenous shunt Routine Hospital Course (1) Fatigue: After extensive discussion and review, as well as input from cardiology, and re review of the CT of her chestI suspect that she is correct that it probably Was symptomatic anemia, an improved after transfusion of 3 units packed red cells (2) Symptomatic anemia: Suspect from ESRD on dialysis rather than acute GI bleed transfused 3 units total packed red cells outpatient management with EPO, etc. ferritin yesterday was 302, but transferrin percent saturation just about a month and a half ago was only 11%ongoing outpatient management of iron stores (3) ESRD on hemodialysis: continue hemodialysis, angiogram done by vascular surgery, and appreciated (4) Elevated troponin: demand ischemia from symptomatic anemia, echo stable (5) Chronic obstructive pulmonary disease: does not appear to be in exacerbation, CT chest with resolving pneumonia findings, but not acute pneumonia findings. Start maintenance inhaler regimen, explained to patient and daughter also suspicious she has underlying sleep apneaovernight pulse ox and a.m. blood gas did not show true hypoventilation, asked that she be scheduled for a sleep study (6) Aortic stenosis: stable (7) Neck pain: initially was complaining of this quite a bit on admission, whenever I saw her subsequent to that she noted that it was not a problem and did not really want to be bothered talking about it, today she noted nobody had addressed itreminded her that whenever I tried to ask her about it she refused to talk about it, and then whenever she gave me the history, as well as her physical exam, it seems most consistent with tight neck musclesparticularly as they relate to her jaw, given that it sounds like her anxiety is been pretty bad lately, I suspect she is probably clenching. Recommended simple mouthguard to try to alleviate clenching, and if that does not help enough, could escalate to 1 made custom by dentist, as well as PT to work on the muscles surrounding her jaw. (8) Anxiety: Zoloft (9) Current every day smoker: Nicotine patch (10) Hypothyroidism: TSH WNL Continue levothyroxine 25 mcg PO daily Plan VTE Prophylaxis - heparin subcu utilized during her stay stable for home, close outpatient follow-up Total Time Total Time Spent Total Time Spent (In Minutes): less than 30 Discharge Plan Discharge Items Patient Disposition: Home - Self-Care Reason For Visit: ANEMIA, NECK PAIN Discharge Diagnosis: anemia Activity: Resume your previous activity Non-emergency contact: Primary Care Provider and Cash Grain Grower Call non-emergency contact if: you have any medication questions and your symptoms worsen Follow-up/Referrals: Darcy Rowe CRNP [Primary Care Provider] - 01/04/23 8:00 am Diet: Dialysis Renal Addtl Attending Provider Instructions: Anemia -You have been given 3 units of transfusion, obviously have them continue to follow your counts closely. Your track record has been to require transfusions relatively frequently, so it certainly would not be surprising if you need transfusions again soon COPD -As we discussed, most people with COPD tend to do better with maintenance inh esther instead of just rescue inhalers -There are 3 classes of inhalers we commonly use for COPDfor now I would recommend starting you on all 3, and over time if you are doing well, your PCP might be able to whittle things down. Most of the time these, as a combination inhaleroften we have to play the "cost and coverage game" so while I will send the prescription for Symbicort and Spiriva, the bottom line will be that we want you on a long-acting beta agonist, inhaled steroid, and inhaled anticholinergic. These will all be regular inhalers that you take whether you feel good, bad, or in different. As we discussed before, the biggest risk with you will be that you stop taking them because you do not feel any relief, but it is really more going to be that slowly over time your breathing gets easier, rather than that you feel a benefit as soon as you puff on the inhaler. -You will definitely still want to have your albuterol inhaler aroundbut the goal of that is really to provide some immediate relief for shortness of breath or wheezing or tight coughnot to be the only inhaler that you have Suspected sleep apnea -I am fairly suspicious you have underlying sleep apneain a good way, the tests that I ordered here in the hospital were not enough to prove it/set up CPAP or BiPAP at home, that is good because that would mean that things were really severe. In a bad way what that means is that we have to set things in motion to get you set up for a sleep study and have all of this play out over the "pace of the outpatient world" Neck pain -Your neck pain appears to be very muscularand given how tender your jaw was, I suspect it is largely muscle strain from the muscles that attach to your jaw. The jaw muscles, and therefore also your swallowing muscles that attach to the front your jaw, all of probably gotten tight because when we have worsening anxiety, we tend to clench more. When we clench more, we make those muscles very tight, and then they can start to get painful. Would have you start with something simple like a football [facility], and wear it when you are awake and just doing nothingit helps protect you from being able to clench quite as hard. If that is not enough, your PCP can refer you for therapy (such as [place] [facility]) that can work specifically on the surrounding jaw muscles, and a dentist can often make a more specific bite guard than the simple mouthguard to get at [facility] Keep close follow-up with your PCP and commercial pilot, would recommend he see them both in the next week Stand-Alone Forms: My [facility], Smoking Cessation Medications and DC Order Prescriptions: New budesonide-formoterol [Symbicort] 80-4.5 mcg/actuation HFA aerosol inhaler 1 inh inhalation BID Qty: 10.2 0RF Spiriva with HandiHaler 18 mcg capsule, w/inhalation device 1 cap inhalation DAILY Qty: 30 0RF Rx Instructions: puncture 1 cap using device; one dose = 2 inhalations Continued levothyroxine 25 mcg tablet 25 mcg PO QAM Qty: 90 3RF trazodone 50 mg tablet 25 mg PO DAILY Qty: 30 2RF Renal-Carissa 0.8 mg tablet 1 tab PO DAILY Qty: 30 0RF amlodipine 5 mg tablet 2.5 mg PO DAILY Qty: 60 2RF sertraline [Zoloft] 25 mg tablet 25 mg PO DAILY Qty: 30 2RF Rx Instructions: PER PT "HAVEN'T TAKE". carvedilol 3.125 mg tablet 3.125 mg PO BID Rx Instructions: must administer with a meal/food cyanocobalamin (vitamin B-12) [Vitamin B-12] 100 mcg tablet 100 mcg PO DAILY Qty: 30 0RF nitroglycerin 0.4 mg tablet, sublingual 0.4 mg sublingual DIRECTED PRN (Reason: Chest Pain) Qty: 10 0RF atorvastatin 40 mg Tablet 40 mg PO QPM albuterol sulfate 90 mcg/actuation HFA aerosol inhaler 2 puff INHALATION UD PRN (Reason: Shortness Of Breath Or Wheezing) multivitamin Tablet 1 tab PO DAILY pantoprazole 40 mg Tablet,Delayed Release (Dr/Ec) 40 mg PO BID Qty: 60 0RF isosorbide mononitrate 30 mg Tablet Extended Release 24 Hr 30 mg PO QAM Qty: 30 0RF torsemide 20 mg tablet 80 mg PO BID sevelamer carbonate 800 mg tablet 800 mg PO TIDM Rx Instructions: TAKE ALSO WITH SNACKS Discharge Orders: Discharge Order (Routine); Ordered 12/23/22 Ordered By: Jn Cunha/Other Patient Handouts: Budesonide/Formoterol MDI, Tiotropium Inhalation [place], Anemia, AV Arteriovenous Fistula Dialysis, What Is COPD Admission Data Admit Date/Time: 12/20/22 17:59 Attending Provider: Jn Wagner Admit Provider: Isiah Lema Primary Care Provider: Darcy Rowe Other Providers: [facility],Referral Center ; Isiah Lema ; Ashutosh Huertas ; Deepthi Berman Eugene J ; [facility],Home Healthcare Other Interventions: Discharge Summary Assessment (RN) Last Done: 12/23/22 13:55 Coding Level of Care Code 31863 IN/OBS DISCH 30 MIN/LESS Diagnoses Fatigue R53.83 Symptomatic anemia D64.9 ESRD on hemodialysis N18.6; Z99.2 Elevated troponin R77.8 Chronic obstructive pulmonary disease J44.9 Aortic stenosis I35.0 Neck pain M54.2 Anxiety F41.9 Current every day smoker F17.200 Hypothyroidism E03.9
[2022-12-24] MEDS ORDERED: EPOETIN ALFA 10,000 UNITS/ML VIAL IV ONE (10:00)
== END 2022-12-23 14:32 | disposition home health service (06) | DRG 981 ==
LOC: ED 12:38 → SUATTDRO 17:59 → 3N 17:59 → 2N 12-21 09:53